=== PATIENT | female | born 1950 | race Caucasian/White ===

== ENCOUNTER → 2016-08-06 | Outpatient (CLI) | payer OTHER ==
--- NOTE | 2016-08-06 17:06 | REP ---
Left knee series: Five views. History: Left knee contusion. Injury in a fall. Findings: Five views of the left knee demonstrate mild to moderate patellofemoral and lateral compartment osteoarthritis. There is some diffuse osteopenia. No fracture or subluxation is seen. Impression: No fracture noted. Osteoarthritic changes. Signed by Trev Dunaway MD 08/06/2016 06:54 P
== END ==
LOC: M ADAMS 15:14
PROVIDERS: ATTEND Physician Assistant Medical
DX: S80.02XA Contusion of left knee, initial encounter (principal); X58.XXXA Exposure to other specified factors, initial encounter; Y92.89 Other specified places as the place of occurrence of the external cause

== ENCOUNTER → 2016-10-18 | Outpatient (REF) | payer OTHER ==
[2016-11-01 08:20] LABS: O+P EXAM NONE SEEN
== END ==
LOC: M SFHCPLAZ 15:07
PROVIDERS: ATTEND Neuromusculoskeletal Medicine & OMM
DX: B82.9 Intestinal parasitism, unspecified (principal)

== ENCOUNTER → 2016-10-22 | Outpatient (REF) | payer OTHER ==
[2016-10-22 13:21] LABS: BASO # 0.1 K/mm3 (0.0-0.2); BASO % 1.1 % (0.0-1.0); EOS # 0.2 K/mm3 (0.0-0.50); EOS % 2.5 % (0.0-3.0); LARGE UNSTAINED CELL # 0.1 K/mm3 (0.0-0.4); LARGE UNSTAINED CELL % 1.5 % (0.0-4.0); LYMPH # 1.6 K/mm3 (1.5-4.5); LYMPH % 27.5 % (24.0-44.0); MEAN CORPUSCULAR HEMOGLOBIN 31.2 pg (27.0-33.0); MEAN CORPUSCULAR HGB CONC 33.8 g/dl (32.0-36.5); MEAN CORPUSCULAR VOLUME 92.2 fl (80.0-96.0); MONO # 0.4 K/mm3 (0.0-0.8); MONO % 6.6 % (0.0-5.0); NEUTROPHILS # 3.6 K/mm3 (1.8-7.7); NEUTROPHILS % 60.8 % (36.0-66.0); PLATELET COUNT, AUTOMATED 292 k/mm3 (150-450); RED CELL DISTRIBUTION WIDTH 12.7 % (11.5-14.5)
[2016-10-22 14:37] LABS: ALBUMIN 3.8 GM/DL (3.2-5.2); ALBUMIN/GLOBULIN RATIO 1.09 (1.00-1.93); ALKALINE PHOSPHATASE 81 U/L (45-117); ALT/SGPT 20 U/L (12-78); ANION GAP 9 MEQ/L (8-16); AST/SGOT 11 U/L (15-37); BILIRUBIN,TOTAL 0.5 MG/DL (0.2-1.0); BLOOD UREA NITROGEN 11 MG/DL (7-18); CALCIUM LEVEL 9.6 MG/DL (8.8-10.2); CARBON DIOXIDE LEVEL 31 MEQ/L (21-32); CHLORIDE LEVEL 96 MEQ/L (98-107); CHOLESTEROL LEVEL 239 MG/DL (<200); CREATININE FOR GFR 0.82 MG/DL (0.55-1.02); FREE T4 0.92 NG/DL (0.76-1.46); GLOMERULAR FILTRATION RATE > 60.0 (>45); GLUCOSE, FASTING 229 MG/DL (80-110); MAGNESIUM LEVEL 1.9 MG/DL (1.8-2.4); POTASSIUM SERUM 4.7 MEQ/L (3.5-5.1); SODIUM LEVEL 136 MEQ/L (136-145); TOTAL PROTEIN 7.3 GM/DL (6.4-8.2); TRIGLYCERIDES LEVEL 140 MG/DL (<150)
[2016-10-26 00:06] LABS: GAD-65 AUTOANTIBODY <5.0 U/mL (0.0-5.0)
[2016-10-27 10:22] LABS: DOPAMINE PLASMA <30 pg/mL (0-48); EPINEPHRINE PLASMA <15 pg/mL (0-62); NOREPINEPHRINE PLASMA 1077 pg/mL (0-874)
== END ==
LOC: M SFHCPLAZ 11:18
DX: I10 Essential (primary) hypertension (principal); R53.82 Chronic fatigue, unspecified; Z13.1 Encounter for screening for diabetes mellitus; E55.9 Vitamin D deficiency, unspecified; Z79.899 Other long term (current) drug therapy

== ENCOUNTER → 2016-10-26 | Outpatient (CLI) | payer OTHER ==
--- NOTE | 2016-10-27 00:04 | REP ---
Clinical: Abdominal bruit. Technique: Vargas scale and color Doppler evaluation of the kidneys and renal vasculature using curved array transducer along with sonographic evaluation of the aorta. Findings: The right kidney is significantly atrophic and increased in parenchymal echogenicity measuring 4.9 x 3.5 x 2.6 cm including 6.5 mm nonobstructing calculus and extrarenal pelvis. The left kidney demonstrates compensatory hypertrophy and is essentially normal in contour, echogenicity and reniform shape without hydronephrosis, nephrolithiasis, cystic or renal mass lesion. Left kidney measures 12.0 x 5.6 x 7.0 cm. Bladder is incompletely distended and grossly normal by current evaluation with bilateral ureteral jets noted. Bladder currently measuring 7.1 x 9.6 x 4.1 cm (185 ml). The abdominal aorta is normal in caliber and without evidence for aneurysm or periaortic fluid and measures 1.9 cm maximal diameter. Color Doppler evaluation of the renal vasculature demonstrates normal arterial wave patterns, velocities, renal aortic ratios, resistive indices and acceleration time for the left kidney with decreased flow to the right kidney. Right Kidney: Peak arterial velocity: 57.8 cm/sec. Renal aortic ratio: 0.6 . Resistive indices: 0.5 - 0.6 . Acceleration times: 0.01 - 0.03 . Left kidney: Peak arterial velocity: 130.7 cm/sec. Renal aortic ratio: 1.4 . Resistive indices: 0.7 . Acceleration times: 0.04. Impression: 1. Atrophic appearance of the right kidney with renovascular disease suggested as well as compensatory enlargement to the left kidney. 2. Evaluation for renal artery stenosis to the right kidney is limited and if necessary MRA may be considered for further investigation. 3. Normal abdominal aorta without aneurysm. Signed by Chuck Barraza MD 10/26/2016 11:55 P
== END ==
LOC: M RAD 08:46
PROVIDERS: ATTEND Neuromusculoskeletal Medicine & OMM
DX: N26.1 Atrophy of kidney (terminal) (principal); N28.81 Hypertrophy of kidney

== ENCOUNTER → 2016-12-03 | Outpatient (REF) | payer OTHER ==
[2016-12-03 21:02] LABS: ANION GAP 7 MEQ/L (8-16); BLOOD UREA NITROGEN 15 MG/DL (7-18); CALCIUM LEVEL 8.8 MG/DL (8.8-10.2); CARBON DIOXIDE LEVEL 31 MEQ/L (21-32); CHLORIDE LEVEL 100 MEQ/L (98-107); GLOMERULAR FILTRATION RATE > 60.0 (>45); GLUCOSE, FASTING 264 MG/DL (80-110); POTASSIUM SERUM 4.9 MEQ/L (3.5-5.1); SODIUM LEVEL 138 MEQ/L (136-145)
== END ==
LOC: M SFHCPLAZ 14:27
PROVIDERS: ATTEND Emergency Medicine
DX: I10 Essential (primary) hypertension (principal); E11.9 Type 2 diabetes mellitus without complications

== ENCOUNTER → 2016-12-22 | Outpatient (REF) | payer OTHER ==
[2016-12-22 13:43] LABS: ANION GAP 10 MEQ/L (8-16); BLOOD UREA NITROGEN 11 MG/DL (7-18); CALCIUM LEVEL 9.3 MG/DL (8.8-10.2); CARBON DIOXIDE LEVEL 31 MEQ/L (21-32); CHLORIDE LEVEL 98 MEQ/L (98-107); CREATININE FOR GFR 0.84 MG/DL (0.55-1.02); GLOMERULAR FILTRATION RATE > 60.0 (>45); GLUCOSE, FASTING 315 MG/DL (80-110); POTASSIUM SERUM 4.4 MEQ/L (3.5-5.1); SODIUM LEVEL 139 MEQ/L (136-145)
[2016-12-30 00:06] LABS: DOPAMINE 177 ug/24 hr (0-510); DOPAMINE PLASMA <30 pg/mL (0-48); EPINEPHRINE 3 ug/24 hr (0-20); EPINEPHRINE PLASMA <15 pg/mL (0-62); INSULIN ANTIBODY <5.0 uU/mL (.); ISLET CELL ANTIBODIES Negative (Neg:<1:1); NOREPINEPHRINE 54 ug/24 hr (0-135); NOREPINEPHRINE PLASMA 655 pg/mL (0-874); NOREPINEPHRINE TOTAL URINE 18 ug/L (Undefined)
== END ==
LOC: M SFHCPLAZ 09:28
PROVIDERS: ATTEND Neuromusculoskeletal Medicine & OMM
DX: I10 Essential (primary) hypertension (principal); E11.9 Type 2 diabetes mellitus without complications

== ENCOUNTER → 2016-12-28 | Outpatient (REF) | payer OTHER | LOC: M SFHCPLAZ 13:10 | PROVIDERS: ATTEND Emergency Medicine | DX: I10 Essential (primary) hypertension (principal); E11.9 Type 2 diabetes mellitus without complications ==

== ENCOUNTER → 2017-03-02 | Outpatient (REF) | payer OTHER | LOC: M SFHCPLAZ 10:17 | PROVIDERS: ATTEND Neuromusculoskeletal Medicine & OMM | DX: E11.9 Type 2 diabetes mellitus without complications (principal) ==

== ENCOUNTER → 2018-09-21 | Outpatient (REF) | payer OTHER ==
[2018-09-21 20:03] LABS: HEMATOCRIT 42.5 % (36.0-47.0)
[2018-09-21 20:15] LABS: BLOOD UREA NITROGEN 16 MG/DL (7-18); CALCIUM LEVEL 9.4 MG/DL (8.8-10.2); CARBON DIOXIDE LEVEL 29 MEQ/L (21-32); CHLORIDE LEVEL 100 MEQ/L (98-107); CREATININE FOR GFR 0.86 MG/DL (0.55-1.30); GLOMERULAR FILTRATION RATE > 60.0 (>45); GLUCOSE, FASTING 320 MG/DL (70-100); POTASSIUM SERUM 4.9 MEQ/L (3.5-5.1); SODIUM LEVEL 135 MEQ/L (136-145)
[2018-09-21 20:31] LABS: HEMOGLOBIN A1c 11.1 %
[2018-09-21 21:11] LABS: CREATININE, URINE 64.6 MG/DL; MAU/CREAT RATIO 1950.4 MCG/MG (0.0-30.0)
== END ==
LOC: M SFHCPLAZ 15:44 → M SFHCADAM 15:44
PROVIDERS: ATTEND Family Medicine
DX: E11.9 Type 2 diabetes mellitus without complications (principal)

== ENCOUNTER → 2018-10-05 | Outpatient (REF) | payer MEDICARE | LOC: M SFHCPLAZ 15:05 | DX: Z00.00 Encounter for general adult medical examination without abnormal findings (principal); E11.9 Type 2 diabetes mellitus without complications; Z53.8 Procedure and treatment not carried out for other reasons | CPT/HCPCS: 36415; G0463 ==

== ENCOUNTER 2020-07-07 17:25 | Inpatient (IN) | payer MEDICARE ==
[~2020-07-07] VITALS: Ht 167.6 cm; Wt 58.2 kg
[2020-07-07] MEDS ORDERED: METF-818 PO ×2 (17:45→22:41)
[2020-07-07 20:28] LABS: BASO # 0.1 10^3/uL (0.0-0.2); BASO % 0.6 % (0.0-1.0); EOS # 0.1 10^3/uL (0.0-0.5); EOS % 1.5 % (0.0-3.0); HEMATOCRIT 35.9 % (36.0-47.0); HEMOGLOBIN 11.9 g/dl (12.0-15.5); LYMPH # 1.2 10^3/uL (1.5-5.0); LYMPH % 15.4 % (24.0-44.0); MEAN CORPUSCULAR HEMOGLOBIN 30.4 pg (27.0-33.0); MEAN CORPUSCULAR HGB CONC 33.1 g/dl (32.0-36.5); MEAN CORPUSCULAR VOLUME 91.8 fl (80.0-96.0); MONO # 0.6 10^3/uL (0.0-0.8); MONO % 7.1 % (2.0-8.0); NEUTROPHILS % 75.2 % (36.0-66.0); PLATELET COUNT, AUTOMATED 431 10^3/uL (150-450); RED BLOOD COUNT 3.91 10^6/uL (4.00-5.40)
[2020-07-07 20:39] LABS: INR 0.94; PROTHROMBIN TIME 12.8 SECONDS (12.5-14.3)
[2020-07-07 20:40] LABS: PARTIAL THROMBOPLASTIN TIME 32.2 SECONDS (24.2-38.5)
[2020-07-07 21:04] LABS: ALT/SGPT 26 U/L (12-78); BILIRUBIN,DIRECT < 0.1 MG/DL (0.0-0.2); BILIRUBIN,TOTAL 0.3 MG/DL (0.2-1.0); BLOOD UREA NITROGEN 30 MG/DL (7-18); CALCIUM LEVEL 8.3 MG/DL (8.8-10.2); CARBON DIOXIDE LEVEL 27 MEQ/L (21-32); CHLORIDE LEVEL 103 MEQ/L (98-107); CK-MB VALUE MASS 8.5 NG/ML (<3.6); CPK CREATINE PHOSPHOKINASE 242 U/L (26-192); FREE T4 1.08 NG/DL (0.76-1.46); GLOMERULAR FILTRATION RATE 33.9 (>39); GLUCOSE, FASTING 215 MG/DL (70-100); MB/CK RELATIVE INDEX 3.51 (< OR =4); NT-PRO BNP 15688 PG/ML (<125); POTASSIUM SERUM 4.5 MEQ/L (3.5-5.1); SODIUM LEVEL 137 MEQ/L (136-145); TOTAL PROTEIN 5.5 GM/DL (6.4-8.2); TROPONIN I 0.54 NG/ML (< 0.10)
--- NOTE | 2020-07-07 21:45 | REPVR ---
PROCEDURE INFORMATION: Exam: XR Chest Exam date and time: 07/07/2020 7:33 PM Age: 69 years old Clinical indication: Peripheral edema. Evaluate for congestive heart failure. TECHNIQUE: Imaging protocol: XR of the chest Views: 2 views. COMPARISON: No relevant prior studies available. FINDINGS: Lungs: There is pulmonary edema. Bibasilar atelectasis is present. Pleural spaces: There are small right larger than left pleural effusions. No pneumothorax is noted. Heart/Mediastinum: The cardiac silhouette is top normal in size. Bones/joints: There is a mild levoscoliosis of the lower thoracic spine. Degenerative changes are present in the thoracic spine. IMPRESSION: Evidence for congestive heart failure, with pulmonary edema and right larger than left pleural effusions with associated bibasilar atelectasis. Electronically signed by: Josef Nova On 07/07/2020 21:45:50 PM
[2020-07-07] MEDS ORDERED: FUROSEMIDE 40MG/4ML VIAL (J1940) IV ONE (21:50)
--- NOTE | 2020-07-07 22:36 | REPVR ---
PROCEDURE INFORMATION: Exam: US Duplex Lower Extremity Veins, Bilateral Exam date and time: 07/07/2020 10:07 PM Age: 69 years old Clinical indication: Edema, localized; Lower extremity, bilateral; Additional info: Edema R/O dvt TECHNIQUE: Imaging protocol: Real-time duplex ultrasound of the extremities with 2-D mackenzie scale, color Doppler flow and spectral waveform analysis with image documentation. Complete exam focused on the bilateral lower extremity veins. COMPARISON: No relevant prior studies available. FINDINGS: Right deep veins: Unremarkable. The common femoral, femoral, and popliteal veins are patent without thrombus. Normal compressibility, augmentation response and Doppler waveforms. Right superficial veins: Saphenofemoral junction is patent without thrombus. Left deep veins: Unremarkable. The common femoral, femoral, and popliteal veins are patent without thrombus. Normal compressibility, augmentation response and Doppler waveforms. Left superficial veins: Saphenofemoral junction is patent without thrombus. Soft tissues: Unremarkable. IMPRESSION: No deep vein thrombosis in the veins imaged in both lower extremities. Electronically signed by: Josef Nova On 07/07/2020 22:36:31 PM
[2020-07-07] MEDS ORDERED: ALEV220T22 PO (22:41)
[2020-07-07] MEDS ORDERED: HM P99TA PO (22:41)
[2020-07-07] MEDS ORDERED: MAGN250T22 PO (22:41)
[2020-07-07] MEDS ORDERED: SPIR500T PO (22:41)
[2020-07-07] MEDS ORDERED: C 50TAB PO (22:41)
[2020-07-07] MEDS ORDERED: VITATAB73 PO (22:41)
[2020-07-07] MEDS ORDERED: ASPI-161 PO (22:41)
[2020-07-07] MEDS ORDERED: MSM500CA4 PO (22:41)
[2020-07-07] MEDS ORDERED: EQL400CA9 PO (22:41)
[2020-07-07] MEDS ORDERED: GRAP50CA3 PO (22:41)
[2020-07-07] MEDS ORDERED: VITA-172 PO (22:41)
--- NOTE | 2020-07-07 22:42 | REPVR ---
PROCEDURE INFORMATION: Exam: US Duplex Upper Extremity Veins Exam date and time: 07/07/2020 10:07 PM Age: 69 years old Clinical indication: Swelling (edema) of limb; Upper extremity, bilateral; Additional info: Edema R/O dvt TECHNIQUE: Imaging protocol: Real-time Duplex ultrasound of the Upper Extremities with 2-D mackenzie scale, color Doppler flow and spectral waveform analysis with image documentation. Complete exam focused on the bilateral upper extremity veins. COMPARISON: No relevant prior studies available. FINDINGS: Right deep veins: Unremarkable. Axillary and brachial veins are patent throughout without thrombus. Normal Doppler waveforms. Normal compressibility and/or augmentation response. Visualized internal jugular and subclavian veins are patent. Right superficial veins: Unremarkable. Visualized cephalic and basilic veins are patent without thrombus. Left deep veins: Unremarkable. Axillary and brachial veins are patent throughout without thrombus. Normal Doppler waveforms. Normal compressibility and/or augmentation response. Visualized internal jugular and subclavian veins are patent. Left superficial veins: Unremarkable. Visualized cephalic and basilic veins are patent without thrombus. IMPRESSION: No evidence of deep vein thrombosis. Electronically signed by: Josef Nova On 07/07/2020 22:42:31 PM
[2020-07-07 23:14] LABS: RSV AMPLIFICATION NEGATIVE (NEGATIVE)
[2020-07-08] VITALS (7 sets, daily range): BP systolic 137–158; BP diastolic 63–78
--- NOTE | 2020-07-08 01:20 | HPEPDOC ---
General Date of Admission Jul 07, 2020 at 23:06 Date of Service: Jul 08, 2020 Primary Care Physician: Consuelo Madrid DO Attending Physician: MEERA SHIN MD Chief Complaint edema History of Present Illness This is a 69-year-old female presented to [facility] ER w/ the chief complaint of bilateral lower extremity edema 1 week, which has progressively got worse in the past 3-4 days. Patient is a very poor historian and is not compliant with medications. Patient states that she does not follow on a regular basis with her PCP. Of note, on chart reviewing she had a retroperitoneal complete ultrasound done in 2017, which shows atrophic appearance of the right kidney with renal vascular disease as well as compensatory enlargement of the L kidney. She was seen at the [facility] clinic last year by Dr. Sharma who had prescribed her with lisinopril for hypertension after her labs showed elevated urine protein. Patient states that she has not been taking that medication since being prescribed. She was also prescribed at that visit Trulicity once a week inj ection and to follow up in 1 month however, no follow-up was made. She states that she has noticed significant amount of weight gain. Denies fever, chills, nausea, vomiting, diarrhea, abdominal discomfort. 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 Central hypertension. Vitamin D deficiency. Chronic instability of right knee. Gait instability Documented abdominal bruits Tonsillectomy 1963 Appendectomy 1962 Laparoscopy - endometriosis 1998 Arthroscopic knee surgery, right 2015 Past Family history: Son alive- healthy 4 brothers, 1 sisterhealthy Social history: Lives alone. Never smoker. No illicit drug use or alcohol use Allergies. Penicillin rash PHYSICAL EXAM: GENERAL APPEARANCE:Alert and oriented, appears stated age HEENT:Normocephalic, atraumatic, extraocular movements grossly intact, hearing grossly intact to conversation. . LUNGS:Wheezing appreciated in left upper lobe and right lower lobe, crackles appreciated in the lower lung bases bilaterally HEART: Regular rate and rhythm., No murmurs, gallops or rubs, 3+ pitting edema in bilateral lower extremities, displaced PMI, JVD appreciated ABDOMEN:Soft, nontender, no hepatosplenomegaly appreciated, Unable to appreciate bruits. MUSCULOSKELETAL:Muscle strength testing 4/5 bilateral EXTREMITIES:No bruising, cyanosis or clubbing. PERIPHERAL PULSES:2+ pulses in the radial and dorsalis pedis bilaterally SKIN:Color, texture, and turgor normal. No rashes, lesions, or masses. . NEUROLOGIC EXAM:No focal neurological deficits AAOX3 Imaging Chest x-ray 07/07/20 Evidence for congestive heart failure, with pulmonary edema and right larger than left pleural effusions with associated bibasilar atelectasis. Duplex ultrasound of upper extremity and lower extremity, 07/07/20negative for DVTs Assessment and plan: This is a 69-year-old elderly female with past medical history of hypertension, diabetes, renovascular disease, renal artery stenosis (diagnosed 2017 by ultrasound), who presents to [facility] ER w/ the chief complaint of bilateral lower extremity edema 1 week, which has progressively got worse in the past 3-4 days. To be admitted under hospitalist service for further management. Pending echo #Lower extremity edema bilaterally -May be secondary to CHF unspecified -Will Order an echo -Ordered. Chest x-ray from [facility] for tomorrow morning -Mild troponin rise-May be secondary to demand ischemia-we'll trend troponins and EKG - Strict ins and outs and daily weigh ins - Lasix 40 IV 1 in the ER -Scheduled for Lasix 40 IV twice a day -Order for an mg and phos+ daily labs- replete electrolytes as needed - PT/OT -2g Na diet - O2 titrate to >92% #Uncontrolled HTN - Upon chart reviewing- hx of renal a stenosis per U/S in 2017 - Pt not on home HTN regimen due to lack of follow up with PCP - Will start on amlodipine and hydralazine - Pending ECHO, consider adding beta prasanna if this is HFrEF - Will continue to monitor bp closely - will order for renal u/s #Uncontrolled diabetes mellitus type 2 - Patient has been noncompliant, does not follow with PCP regularly - We'll order for urine protein to assess for nephropathy-order for urine creatinine and micro-albumin - Held home metformin - will order a1c level - We'll start on 5 units of Levemir with SSI+Finger stick before meals and daily at bedtime plus hypoglycemia protocol - consistent carb diet #Elevated troponins - may be 2/2 to demand ischemia in the setting of acute CHF exacerbation (unspecifed)- pending ECHO - Will trend trops and EKG q6h #Subclinical hypothyroidism -TSH 7.5, T4 1 0.08 -With patient if again. Past medical history and noncompliance and likely CHF picture, I will start her on 25 minute per day of levothyroxine as long-standing untreated subclinical hypothyroidism can lead to CHF -Patient will need to follow up with primary care physician outpatient for optimal management #ELVIA - Avoid nephrotoxic drugs -Continue with Diuresis #Anemia - will order iron studies, Vit b12 folate #renal artery stenosis - could be a cause of HTN - renal u/s ordered #hx of gait instability- am team further neuro exam to r/o stroke as pt has uncontrolled htn and noncompliant with meds #Hx of documented abd bruits DVT ppx: heparin GI ppx: none Fluids: none. 2L fluid restriction Diet: 2g Na and consistent carb Fall precautions CODE STATUS: Full Home Medications Scheduled Ascorbic Acid (Vitamin C) 500 Mg Tablet, 500 MG PO DAILY, (Reported) Blue-Green Algae (Spirulina) 500 Mg Tablet, 500 MG PO DAILY, (Reported) Cholecalciferol (Vitamin D3) (Vitamin D3) 10 Mcg Capsule, 10 MCG PO DAILY, (Reported) Cyanocobalamin (Vitamin B-12) (Vitamin B-12) 500 Mcg Tablet, 500 MCG PO DAILY, (Reported) Grape Seed Extract (Grape Seed Extract) 50 Mg Capsule, 50 MG PO DAILY, (Reported) Magnesium (Magnesium) 250 Mg Tablet, 250 MG PO QHS, (Reported) Metformin HCl (Metformin ER Gastric) 1,000 Mg [id number], 1,000 MG PO DAILY, (Reported) Methylsulfonylmethane (Msm) 500 Mg Capsule, 500 MG PO QHS, (Reported) Potassium Gluconate (Potassium) 99 Mg Tablet, 595 MG PO QHS, (Reported) Vitamin B Complex (Vitamin B Complex) 1 Each Tablet, 1 TAB PO DAILY, (Reported) Scheduled PRN Aspirin (Aspirin EC) 81 Mg Tablet.dr, 81 MG PO BID PRN for PAIN, (Reported) Naproxen Sodium (Aleve) 220 Mg Tablet, 220 MG PO BID PRN for PAIN, (Reported) Allergies Coded Allergies: Penicillins (Verified Allergy, Mild, rash, 07/07/20) A-FIB/CHADSVASC A-FIB History Current/History of A-Fib/PAF?: No Current PO Anticoag Therapy: No Vital Signs Vital Signs Date Time Temp Pulse Resp B/P (MAP) Pulse Ox O2 Delivery O2 Flow Rate FiO2 07/08/20 00:14 97.6 80 18 161/82 (108) 96 Room Air Laboratory Data Labs 24H Laboratory Tests 2 07/07/20 19:51: Immature Granulocyte % (Auto) 0.2, Neutrophils (%) (Auto) 75.2H, Lymphocytes (%) (Auto) 15.4L, Monocytes (%) (Auto) 7.1, Eosinophils (%) (Auto) 1.5, Basophils (%) (Auto) 0.6, Neutrophils # (Auto) 6.0, Lymphocytes # (Auto) 1.2L, Monocytes # (Auto) 0.6, Eosinophils # (Auto) 0.1, Basophils # (Auto) 0.1, Nucleated Red Blood Cells % (auto) 0.0, Prothrombin Time 12.8, Prothromb Time International Ratio 0.94, Activated Partial Thromboplast Time 32.2, Anion Gap 7L, Glomerular Filtration Rate 33.9L, Calcium Level 8.3L, Total Bilirubin 0.3, Direct Bilirubin < 0.1, Aspartate Amino Transf (AST/SGOT) 22, Alanine Aminotransferase (ALT/SGPT) 26, Alkaline Phosphatase 265H, Total Creatine Kinase 242H, Creatine Kinase MB 8.5H, Creatine Kinase MB Relative Index 3.51, Troponin I 0.54H, ZO-Gow-Z-Type Natriuretic Peptide 73735H, Total Protein 5.5L, Albumin 2.0L, Albumin/Globulin Ratio 0.6L, Thyroid Stimulating Hormone (TSH) 7.510H, Free Thyroxine 1.08 07/07/20 22:20: Coronavirus (COVID-19)(PCR) NEGATIVE, Influenza Type A (RT-PCR) NEGATIVE, Influenza Type B (RT-PCR) NEGATIVE, Respiratory Syncytial Virus (PCR) NEGATIVE CBC/BMP Laboratory Tests 07/07/20 19:51 Plan / VTE VTE Prophylaxis Ordered?: Yes GME ATTESTATION GME ATTESTATION My faculty preceptor for this patient encounter was physically present during the encounter and was fully available. All aspects of the patient interview, examination, medical decision making process, and medical care plan development were reviewed and approved by the faculty preceptor. The faculty preceptor is aware and concurs with the plan as stated in the body of this note and will attest to such by his/her cosignature. ATTENDING NOTE TIME OF SERVICE 1145PM Ms. Woodruff is a 69 yr old w a hx of IDDM, HTN, renovascular CKD3 , and frequent falls who presented w c/o BUE and BLE swelling; she will be admitted for management of anasarca possibly 2/2 acute CHF, HTN Urgency, ELVIA and elevated troponin. Rest per 's H&P Eugenia aDn DO Jul 08, 2020 01:19 MEERA SHIN MD Jul 08, 2020 06:26
[2020-07-08] MEDS: ASPIRIN 81MG ENTERIC TABLET PO PRN ×2 (02:37→23:43)
[2020-07-08] MEDS ORDERED: GLUCOSE 4GM CHEW TABLET PO PRN (02:45)
[2020-07-08] MEDS ORDERED: DEXTROSE 50% 50 ML SYRINGE IV PRN (02:45)
[2020-07-08] MEDS ORDERED: GLUCAGON INJ 1MG VIAL SC PRN (02:45)
[2020-07-08 03:22] LABS: MAGNESIUM LEVEL 2.2 MG/DL (1.8-2.4); TROPONIN I 0.51 NG/ML (< 0.10)
--- NOTE | 2020-07-08 05:18 | ECGEPIP ---
[facility] - ED Test Date: 2020-07-07 Pat Name: HUI OHARA Department: Room: - Gender: Female Trip Follower: JULIUS : 1950 Requested By: ALISON Moreno Order Number: [id number] Reading MD: Walter Glez Measurements Intervals [place] Rate: 91 P: 71 CO: 152 QRS: 95 QRSD: 138 T: 5 QT: 400 QTc: 492 Interpretive Statements Normal sinus rhythm Right bundle branch block NO PRIORS FOR COMPARISON Electronically Signed on 07-08-2020 5:18:40 EDT by Walter Glez
[2020-07-08] MEDS: LEVEMIR (INSULIN DETEMIR) 1 UNITS/0.01ML SC SCH ×2 (05:23→21:38)
[2020-07-08] MEDS: HEPARIN SOD (PORCINE) 5000UNITS/ML 1ML VIAL/SYRINGE SC SCH ×3 (05:25→21:37)
[2020-07-08] MEDS: LEVOTHYROXINE 25MCG TABLET (0.025MG) PO SCH (05:25)
[2020-07-08] MEDS: **hydrALAZINE** 10 MG TAB PO SCH ×4 (06:49→23:41)
[2020-07-08] MEDS: HumaLOG INSULIN (NovoLOG) PER UNIT SC SCH ×4 (07:30→21:38)
[2020-07-08 07:50] LABS: TROPONIN I 0.6 NG/ML (< 0.10)
[2020-07-08 07:53] LABS: FERRITIN 100 NG/ML (8-252); IRON (FE) 43 UG/DL (50-170); PERCENT SATURATION 18.4 % (13.2-45.0); PHOSPHORUS LEVEL 4.3 MG/DL (2.5-4.9); TOTAL IRON BINDING CAPACITY 234 UG/DL (250-450); URIC ACID 7.5 MG/DL (2.6-6.0)
--- NOTE | 2020-07-08 07:57 | REP ---
INDICATION: chf. COMPARISON: 07/07/2020. TECHNIQUE: Portable AP chest with the patient semi upright. FINDINGS: There are bilateral pleural effusions, unchanged. The right pleural effusion is again larger. There are bilateral parahilar infiltrates, unchanged. Cardiac margins are obscured and cardiac size cannot be determined. IMPRESSION: No significant interval change. <Electronically signed by Stephane Valentino > 07/08/20 0753
[2020-07-08] MEDS ORDERED: FLUBLOK(EGG FREE)(QUAD)INFLUENZA VACC 0.5ML SYRINGE 18YRS & OLDER IM ONE (09:00)
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
[2020-07-08 10:21] LABS: FOLATE 15.8 NG/ML (>5.4); PTH INTACT 145.4 PG/ML (18.5-88.0); VITAMIN B12 LEVEL > 2000 PG/ML (247-911)
[2020-07-08] MEDS: FUROSEMIDE 40MG/4ML VIAL (J1940) IV SCH ×2 (10:28→21:37)
[2020-07-08] MEDS: amLODIPine 5 MG TAB PO SCH (10:31)
[2020-07-08] MEDS: CYANOCOBALAMIN 500 MCG TAB PO SCH (10:32)
[2020-07-08] MEDS: ASCORBIC ACID 500 MG TAB PO SCH (10:32)
[2020-07-08 13:23] LABS: CALCIUM LEVEL 8.1 MG/DL (8.8-10.2); CREATININE FOR GFR 1.69 MG/DL (0.55-1.30); GLOMERULAR FILTRATION RATE 31.8 (>39); POTASSIUM SERUM 4.1 MEQ/L (3.5-5.1)
--- NOTE | 2020-07-08 15:40 | IPNPDOC ---
Subjective Date Seen The patient was seen on 07/08/20. Subjective Chief Complaint/HPI Mrs. Sheikh is a 69 year old female with DM, hypertension, and renal artery stenosis who presents with bilateral lower extremity edema and found to have hypertensive urgency, acute kidney injury, CHF, and troponin increase. This morning, denies any chest pain or dyspnea. she complains of difficulty with ambulation. She has had poor gait for more than a year, but a few days ago, had difficulty ambulating. Physical therapy evaluating today. Placing OT and ARU screen as well. Later in the afternoon, I reached out to her about MRI of the LS spine and MRI. Back in 2019, her PCP recommended MRI of LS spine for sciatica and poor balance. Patient declined the MRI of LS spine at that time. Patient reports that her sciatica pain has greatly improved and has not bothered her. We will hold off on MRI of LS spine. Discussed MRI of the brain to look for stroke as a cause for poor balance and weakness. She wanted more time to think about MRI of the brain. Objective Physical Examination General Exam: Positive: Alert, Cooperative Eye Exam: Positive: EOMI; Negative: Sclera icteric Neck Exam: Positive: Supple Chest Exam: Positive: Diminished Heart Exam: Positive: Rate Normal, Regular Rhythm Abdomen Exam: Positive: Normal bowel sounds, Soft; Negative: Tenderness Extremity Exam: Positive: Edema (bilateral pitting edema) Neuro Exam: Positive: Cranial Nerves 3-12 NL Psych Exam: Positive: Mental status NL, Anxiety Assessment /Plan Assessment Mrs. Sheikh is a 69 year old female with DM, hypertension, and renal artery stenosis who presents with bilateral lower extremity edema and found to have hypertensive urgency, acute kidney injury, CHF, and troponin increase. Her systolic blood pressure has improved to 130s to 140s. Continue with amlodipine and hydralazine q6h. When renal function improve, switch from hydralazine to lisinopril for right renal artery stenosis. Otherwise, troponin increase may be secondary to hypertensive urgency. The persistent elevation would be secondary to her ELVIA. Otherwise, receiving diuresis for CHF which may help with blood pressure as well. Plan/VTE VTE Prophylaxis Ordered?: Yes Plan 1. Acute renal failure -Secondary to hypertensive urgency -Supportive care and blood pressure control -Lisinopril held 2. Right renal artery stenosis -Seen on retroperitoneal US on 10/26/2016 -Recommended MRA, but was not obtained. May need to wait for renal improvement before considering MRA for concerns of nephrogenic systemic fibrosis -When renal function improves, restart lisinopril 3. Hypertensive urgency -End organ damage demonstrated by ELVIA and troponin rise -Blood pressure controlled with Amlodipine and hydralazine. Consider switching hydralazine to lisinopril when renal function improves 4. Elevated troponin -Trending troponin -Pending echocardiogram results 5. CHF -Pending [place] [address] -On diuresis with furosemide 6. Gait instability -Patient has history of gait instability. PCP had ordered MRI of LS spine, but patient refused -Physical therapy ordered, Recommendations appreciated. Will order for OT and ARU as well -Offered MRI of brain, patient wants to think about it more 7. Diabetes mellitus -Hold metformin -Sliding scale insulin while inpatient -Carbohydrate consistent diet 8. Hypothyroidism -Continue levothyroxine 9. DVT ppx -Heparin subQ due to ELVIA Disposition: Pending patient response to MRI and recommendations from PT/OT/ARU VS, I&O, 24H, Ricci Vital Signs/I&O Vital Signs Date Time Temp Pulse Resp B/P (MAP) Pulse Ox O2 Delivery O2 Flow Rate FiO2 07/08/20 12:08 141/65 07/08/20 10:31 81 07/08/20 09:07 2.0 92 07/08/20 09:02 92.0 20 92 Nasal Cannula I&O- Last 24 Hours up to 6 AM 07/08/20 06:00 Intake Total 480 ml Output Total 1400 ml Balance -920 ml Laboratory Data 24H LABS Laboratory Tests 2 07/07/20 19:51: Immature Granulocyte % (Auto) 0.2, Neutrophils (%) (Auto) 75.2H, Lymphocytes (%) (Auto) 15.4L, Monocytes (%) (Auto) 7.1, Eosinophils (%) (Auto) 1.5, Basophils (%) (Auto) 0.6, Neutrophils # (Auto) 6.0, Lymphocytes # (Auto) 1.2L, Monocytes # (Auto) 0.6, Eosinophils # (Auto) 0.1, Basophils # (Auto) 0.1, Nucleated Red Bloo d Cells % (auto) 0.0, Prothrombin Time 12.8, Prothromb Time International Ratio 0.94, Activated Partial Thromboplast Time 32.2, Anion Gap 7L, Glomerular Filtration Rate 33.9L, Calcium Level 8.3L, Total Bilirubin 0.3, Direct Bilirubin < 0.1, Aspartate Amino Transf (AST/SGOT) 22, Alanine Aminotransferase (ALT/SGPT) 26, Alkaline Phosphatase 265H, Total Creatine Kinase 242H, Creatine Kinase MB 8.5H, Creatine Kinase MB Relative Index 3.51, Troponin I 0.54H, PW-Dvd-F-Type Natriuretic Peptide 19619T, Total Protein 5.5L, Albumin 2.0L, Albumin/Globulin Ratio 0.6L, Thyroid Stimulating Hormone (TSH) 7.510H, Free Thyroxine 1.08 07/07/20 22:20: Coronavirus (COVID-19)(PCR) NEGATIVE, Influenza Type A (RT-PCR) NEGATIVE, Influenza Type B (RT-PCR) NEGATIVE, Respiratory Syncytial Virus (PCR) NEGATIVE 07/08/20 02:29: Troponin I 0.51H, Phosphorus Level 4.0, Magnesium Level 2.2 07/08/20 07:00: Troponin I 0.60H, PU-Uzd-F-Type Natriuretic Peptide 15164L, Phosphorus Level 4.3, Uric Acid 7.5H, Iron Level 43L, Total Iron Binding Capacity 234L, Dixon sferrin % Saturation 18.4, Ferritin 100, Vitamin B12 Level > 2000H, Folate 15.8, Parathyroid Hormone (Intact) 145.4H 07/08/20 11:47: Bedside Glucose (Misc Panel) 337H CBC/BMP Laboratory Tests 07/07/20 19:51 [facility] 23, 2021 12:50
--- NOTE | 2020-07-08 20:41 | ECGEPIP ---
[facility] Test Date: 2020-07-08 Pat Name: HUI OHARA Department: Room: [place] [address] Gender: Female Signal Fitter: nicol : 1950 Requested By: Eugenia Dan Order Number: [id number] Reading MD: Sumit Lopez Measurements Intervals [place] Rate: 81 P: 55 SC: 152 QRS: 79 QRSD: 146 T: -8 QT: 416 QTc: 483 Interpretive Statements Normal sinus rhythm Low QRS complex voltage in the limb leads Right bundle branch block Nonspecific ST-T wave abnormalities No significant change when compared to prior tracing of 07/07/2020 Electronically Signed on 07-08-2020 20:41:47 EDT by Sumit Lopez
[2020-07-09] VITALS (7 sets, daily range): BP systolic 114–174; BP diastolic 62–80
[2020-07-09 04:05] LABS: CREATININE,RANDOM URINE 38.4 MG/DL
[2020-07-09] MEDS: **hydrALAZINE** 10 MG TAB PO SCH ×4 (05:37→23:10)
[2020-07-09] MEDS: HEPARIN SOD (PORCINE) 5000UNITS/ML 1ML VIAL/SYRINGE SC SCH ×3 (05:37→21:33)
[2020-07-09 05:44] LABS: MEAN CORPUSCULAR HEMOGLOBIN 30.4 pg (27.0-33.0); MEAN CORPUSCULAR HGB CONC 32.4 g/dl (32.0-36.5); MEAN CORPUSCULAR VOLUME 93.9 fl (80.0-96.0); PLATELET COUNT, AUTOMATED 371 10^3/uL (150-450); RED BLOOD COUNT 3.09 10^6/uL (4.00-5.40); WHITE BLOOD COUNT 8.7 10^3/uL (4.0-10.0)
[2020-07-09 05:50] LABS: HEMOGLOBIN A1c 10.5 %
[2020-07-09 05:51] LABS: HEMOGLOBIN 9.4 g/dl (12.0-15.5)
[2020-07-09] MEDS: LEVOTHYROXINE 25MCG TABLET (0.025MG) PO SCH (05:53)
[2020-07-09 06:00] LABS: BLOOD UREA NITROGEN 40 MG/DL (7-18); CALCIUM LEVEL 7.2 MG/DL (8.8-10.2); CARBON DIOXIDE LEVEL 27 MEQ/L (21-32); CHLORIDE LEVEL 106 MEQ/L (98-107); CREATININE FOR GFR 1.84 MG/DL (0.55-1.30); GLOMERULAR FILTRATION RATE 28.9 (>39); GLUCOSE, FASTING 218 MG/DL (70-100); POTASSIUM SERUM 4.5 MEQ/L (3.5-5.1); SODIUM LEVEL 140 MEQ/L (136-145)
[2020-07-09] MEDS: ASCORBIC ACID 500 MG TAB PO SCH (08:09)
[2020-07-09] MEDS: CYANOCOBALAMIN 500 MCG TAB PO SCH (08:09)
[2020-07-09] MEDS: HumaLOG INSULIN (NovoLOG) PER UNIT SC SCH ×4 (08:11→21:00)
[2020-07-09] MEDS: amLODIPine 5 MG TAB PO SCH (08:16)
--- NOTE | 2020-07-09 09:21 | ECHO ---
DATE OF PROCEDURE: 07/08/2020 Age: 69 Gender: Female Height: 168 cm Weight: 69 kg REFERRING PHYSICIAN: Dr. Dan. INDICATION: Edema. MEASUREMENTS: IVS 1.0 cm LV 4.5 cm LVPW 1.3 cm LA 4.3 cm Aorta 2.8 cm IVC 1.9 cm Mitral E wave velocity 103 Mitral A wave 109 E prime septal 6.6 E prime lateral 5.7 FINDINGS: This study is of good technical quality. There are relatively fair or poor parasternal and apical views, but subcostal views are excellent. Left ventricle is of normal size. There is septal wall motion abnormality likely related to underlying left bundle branch block. Remaining segments appear to have preserved contractility. I estimate overall EF approximately 50% to 55%. Right ventricle does not appear grossly enlarged and is normally contractile. Both atria appear enlarged. The aortic valve is sclerotic, but has three cusps and preserved mobility. Mitral and tricuspid valves appear normal. Pulmonic valve was not well seen. There is trivial pericardial effusion noted. There is a large left pleural effusion. Inferior vena cava is in the upper limits of normal size and has no appreciable collapse with inspiration indicative of high central venous pressure. Aortic root appears normal. Aortic arch and abdominal aorta were not well seen. Doppler interrogation reveals competent aortic valve. There is mild mitral insufficiency and moderate tricuspid insufficiency. Calculated pulmonary artery pressure is at minimum in the mid 50s, which would correspond to moderate pulmonary hypertension. Mitral inflow pattern and tissue Doppler imaging of mitral annulus revealed grade 1 diastolic dysfunction. CONCLUSIONS: 1. Study if of acceptable technical quality. Underlying sinus rhythm with wide QRS complex, likely left bundle branch block (LBBB). 2. Normal LV size with mild left ventricular hypertrophy (LVH), septal wall motion abnormality related to LBBB and overall left ventricular ejection fraction (LVEF) estimated at 50% to 55%. Grade 1 diastolic dysfunction. 3. Aortic sclerosis. 4. Moderate tricuspid insufficiency. 5. High central venous pressure and at least moderate pulmonary hypertension. 6. Small noncompressive pericardial effusion. 7. Large left pleural effusion. MTDD
[2020-07-09] MEDS: guaiFENesin ER 600 MG TAB PO SCH ×2 (09:29→21:18)
--- NOTE | 2020-07-09 09:46 | REP ---
INDICATION: dyspnea. COMPARISON: 07/09/2019. TECHNIQUE: SINGLE PORTABLE AP VIEW OF THE CHEST WAS PERFORMED. FINDINGS: Bilateral infiltrates and effusions have not significantly changed. The cardiomediastinal silhouette is unchanged. IMPRESSION: Stable exam. <Electronically signed by Stephane Vargas > 07/09/20 [id number]
--- NOTE | 2020-07-09 11:29 | REPVR ---
PROCEDURE INFORMATION: Exam: MR Head Without Contrast Exam date and time: 07/09/2020 11:11 AM Age: 69 years old Clinical indication: Weakness, extremity; Left; Patient HX: Leg weakness, poor balance TECHNIQUE: Imaging protocol: MR of the head without contrast. COMPARISON: No relevant prior studies available. FINDINGS: Brain: No evidence of restricted diffusion to suggest an acute infarct. No mass, midline shift, or mass effect. No evidence of hemorrhage. Mild small vessel ischemic changes. Ventricles and sulci are enlarged presenting moderate volume loss. Cerebral ventricles: Normal. No ventriculomegaly. Bones/joints: Heterogeneous bone marrow signal with multiple lytic lesions in the skull and within the clivus concerning for metastatic disease or multiple myeloma. Clinical correlation and further workup is recommended. Paranasal sinuses: Mild mucosal thickening of the ethmoidal air cells. Mastoid air cells: Small fluid in bilateral mastoid air cells, left greater than right. Orbital cavity: Unremarkable. Soft tissues: Unremarkable. IMPRESSION: Limited study secondary to motion artifact. Given limitation of motion artifact no acute intracranial abnormality is seen., however, if clinically concerned for hemorrhage further evaluation with CT scan is recommended. No evidence of acute infarct, mass, midline shift, or mass effect. Mild small vessel ischemic changes and moderate volume loss. Small fluid in bilateral mastoid air cells. Heterogeneous bone marrow signal with multiple lytic lesions in the skull and within the clivus concerning for metastatic disease or multiple myeloma. Clinical correlation and further workup is recommended. Electronically signed by: Maude Bosch On 07/09/2020 11:29:34 AM
[2020-07-09 12:11] LABS: MEAN CORPUSCULAR HEMOGLOBIN 30.5 pg (27.0-33.0); MEAN CORPUSCULAR HGB CONC 32.3 g/dl (32.0-36.5); MEAN CORPUSCULAR VOLUME 94.5 fl (80.0-96.0); PLATELET COUNT, AUTOMATED 372 10^3/uL (150-450); RED BLOOD COUNT 3.28 10^6/uL (4.00-5.40); WHITE BLOOD COUNT 10.7 10^3/uL (4.0-10.0)
[2020-07-09 13:07] LABS: TOTAL PROTEIN 4.4 GM/DL (6.4-8.2)
[2020-07-09] MEDS ORDERED: ONDANSETRON 4MG/2ML VIAL IV SCH (17:00)
--- NOTE | 2020-07-09 17:23 | REPVR ---
PROCEDURE INFORMATION: Exam: MR Lumbar Spine Without Contrast. Exam date and time: 07/09/2020 4:57 PM Age: 69 years old Clinical indication: Patient HX: Low back pain, mets in brain; Additional info: Leg weakness, metastatic lytic bone lesions seen on mribrain TECHNIQUE: Imaging protocol: Multiplanar magnetic resonance images of the lumbar spine without contrast. COMPARISON: No relevant prior studies available. FINDINGS: Vertebrae: The lumbar vertebral bodies are normal in height, without abnormal subluxation. There is diffuse heterogeneous signal intensity of the visualized bone marrow of the lumbar, lower thoracic, and upper sacral spine. This is concerning for metastatic disease. Myeloma is within the differential. Spinal cord: The distal end of the conus medullaris ends at L1-L2, normal in position. Multilevel findings: Degenerative disc disease is noted at multiple lumbar and lower thoracic levels, with disc bulge/osteophyte complexes. L1-L2: Minimal disc bulging, without significant spinal canal stenosis. No significant neural foraminal narrowing bilaterally. L2-L3: Bilateral facet arthropathy. Minimal disc bulging, without significant spinal canal stenosis. No significant neural foraminal narrowing bilaterally. L3-L4: Bilateral facet arthropathy with hypertrophy of the ligamentum flavum. Mild disc bulging, without significant spinal canal stenosis. Mild left neural foraminal narrowing. There is mild bulging into the right neural foramen, without significant narrowing. L4-L5: Bilateral facet arthropathy with hypertrophy of the ligamentum flavum. Minimal disc bulging, without significant spinal canal stenosis or neural foraminal narrowing. L5-S1: Bilateral facet arthropathy. No significant spinal canal stenosis or neural foraminal narrowing. Soft tissues: There is swelling of the soft tissues posteriorly. There is a suggestion of posterior paraspinal muscle is swelling, although evaluation of the musculature is significantly limited. Other findings: This study is technically suboptimal. IMPRESSION: 1. There is diffuse heterogeneous signal intensity of the visualized bone marrow of the lumbar, lower thoracic, and upper sacral spine. This is concerning for metastatic disease. Myeloma is within the differential. 2. Degenerative changes are noted at multiple lumbar and lower thoracic levels, as described above. 3. No significant spinal canal stenosis at any lumbar level. 4. Mild left neural foraminal narrowing at L3-L4. 5. Additional findings described above. This study is technically suboptimal. 6. Follow-up postcontrast MRI lumbar spine is recommended, as clinically indicated. Electronically signed by: Jacinto Piper On 07/09/2020 17:23:11 PM
--- NOTE | 2020-07-09 17:32 | CR.PDOC ---
General Date of Consultation: Jul 09, 2020 Referring Provider: BETINA OSMANCP Consultation REASON FOR CONSULTATION/CHIEF COMPLAINT: [This is a 69-year-old woman who has been referred for an evaluation of multiple lesions noted in her skull bones as a part of her investigations which have been performed since she has been admitted to the hospital with a multiplicity of medical problems. She stated to me that her main complaint was swelling of her legs. She has been having weakness in the lower limbs and because of the overall clinical findings and picture she had just returned to her room after having undergone an MRI of the spine as well. Review of the patient's reasons for admission includes congestive heart failure hypertension elevated troponins and a multiplicity of other medical issues which are well recorded in the attending]. HISTORY OF PRESENT ILLNESS: [In terms of the oncologic issues the MRI of the head has suggested as a part of the differential problems such as myeloma for which protein studies have been ordered but at the moment are not available. It is clear on examining the patient and by talking to her that she has had a breast mass for the past 5 years on the right side, she had decided that she would not want anything be done about it . an examination later showed that t he right breast has shrunken in a cicatrized manner and was nearly flat in comparison to the left breast. She had had no bleeding no lumps that she otherwise complained of. Is is in this context that I was asked to see the patient. The patient was seen in the room and the company of her son. Apparently she had made up her mind not to undertake treatments and investigations in the context of her breast]. She is extremely pleasant but otherwise appeared to be somewhat firm in her commitment to being managed in the way she wished. Reports in the records also indicate a similar issue of compliance on medical matters, ALLERGIES: Please see below. HOME MEDICATIONS: Please see below. PAST MEDICAL HISTORY: 1. [She has many past medical issues including renovascular hypertension diabetes mellitus heart failure vitamin D deficiency abnormal gait]. 2. . PAST SURGICAL HISTORY: 1. [She had a history of tonsillectomy appendicectomy] 2. FAMILY HISTORY: 4 brothers one son who was in the room with her Father: Mother: Siblings: Children: Hereditary Diseases: Unexpected deaths due to medical reasons: SOCIAL HISTORY: Marital status and/or living arrangements: Children: Employment: Tobacco use: ETOH: Illicit drug use: IV drug use: Other relevant social factors: REVIEW OF SYSTEMS: CONSTITUTIONAL: [Alert and awake cooperative]. HEENT: [No head and neck complaints]. CARDIOVASCULAR: [Swelling of the legs]. RESPIRATORY: [Some shortness of breath but appeared to be comfortable at rest]. GENITOURINARY: No complaints voiced. MUSCULOSKELETAL: [Has weakness in the legs]. GASTROINTESTINAL: [Denied any problems with bowel control]. SKIN: [No skin issues]. NEUROLOGICAL: [Has a difficult time with walking although she was in bed when seen]. PSYCHIATRIC: [No]. ENDOCRINE: [No complaints]. HEMATOLOGIC/LYMPHATIC: [As above in the beginning of the note but she has self was not available if any problem]. ALLERGIC/IMMUNOLOGIC: . PHYSICAL EXAMINATION: A cooperative pleasant woman laying in bed had just arrived from the MRI of the spine in no acute distress at the moment examination but tired and wanted to progress eat she was examined in the presence of the nose was also assigned to her, HEENT pupils are equal and reactive mouth normal neck supple chest clear examination of the breast on the right side revealed that the breasts had retracted almost to the chest wall is hyperpigmented nonulcerated and fibrotic and hard. This is a classical appearance of so-called sick cicatrized breast cancer. The examination of the abdomen was deferred' examination the lower limb is revealed edema and focality of findings could not be ascertained at this time. The right leg appeared to be slightly weaker than the left with his socks on one could not demonstrate a Babinski. The skin examination revealed pale skin otherwise unremarkable VITAL SIGNS: Please see below. While she is in the hospital further examination from the oncologic point of view would be done. ASSESSMENT: * It is quite evident that she has breast cancer which is metastatic to the bone although many other causes such as myeloma are a part of the differentials * Usually such a breast cancer as she has is estrogen and progesterone receptor positive and consequently if she were to agree to a biopsy which I emphasized to her in the presence of her nurse can be quite conveniently treated with anti-estrogen therapy' * On the other hand the presence of the possibility of a mass of pressure on the spinal cord can only be treated effectively by radiation along with supportive medications, we will await the report of the MRI of the spine * Overall unless she agrees for some easy investigations that getting an FNA of a [place] biopsy of the breast for which breast says he should be consulted and will be difficult to undertake oncologic measures short of palliation * She was accepting of all of these in a very calm demeanor and we will await her getting well and to see the results of the spinal MRI * Will follow with you thank you Vital Signs/I&O Vital Signs Date Time Temp Pulse Resp B/P (MAP) Pulse Ox O2 Delivery O2 Flow Rate FiO2 07/09/20 12:24 114/64 07/09/20 12:00 96.7 75 16 95 Nasal Cannula 2.0 07/08/20 12:54 92 I&O- Last 24 Hours up to 6 AM 07/09/20 06:00 Intake Total 1266 ml Output Total 800 ml Balance 466 ml Laboratory Data Labs 24H Laboratory Tests 2 07/08/20 17:30: Bedside Glucose (Misc Panel) 203H 07/08/20 18:46: Troponin I 0.60H 07/08/20 21:20: Bedside Glucose (Misc Panel) 268H 07/09/20 05:01: Nucleated Red Blood Cells % (auto) 0.0, Anion Gap 7L, Glomerular Filtration Rate 28.9L, Estimated Mean Plasma Glucose 255H, Hemoglobin A1c 10.5, Calcium Level 7.2L, Total Protein (PEP) 4.4L 07/09/20 11:32: Bedside Glucose (Misc Panel) 203H 07/09/20 11:50: Reticulocyte # (auto) 90.5H, Nucleated Red Blood Cells % (auto) 0.0, Percent Reticulocyte Count 2.8H, Reticulocyte Hemoglobin Equivalent 33.8 CBC/BMP Laboratory Tests 07/09/20 05:01 07/09/20 11:50 Allergies Coded Allergies: Penicillins (Verified Allergy, Mild, rash, 07/07/20) Home Medications Scheduled Ascorbic Acid (Vitamin C) 500 Mg Tablet, 500 MG PO DAILY, (Reported) Blue-Green Algae (Spirulina) 500 Mg Tablet, 500 MG PO DAILY, (Reported) Cholecalciferol (Vitamin D3) (Vitamin D3) 10 Mcg Capsule, 10 MCG PO DAILY, (Reported) Cyanocobalamin (Vitamin B-12) (Vitamin B-12) 500 Mcg Tablet, 500 MCG PO DAILY, (Reported) Grape Seed Extract (Grape Seed Extract) 50 Mg Capsule, 50 MG PO DAILY, (Reported) Magnesium (Magnesium) 250 Mg Tablet, 250 MG PO QHS, (Reported) Metformin HCl (Metformin ER Gastric) 1,000 Mg [id number], 1,000 MG PO DAILY, (Reported) Methylsulfonylmethane (Msm) 500 Mg Capsule, 500 MG PO QHS, (Reported) Potassium Gluconate (Potassium) 99 Mg Tablet, 595 MG PO QHS, (Reported) Vitamin B Complex (Vitamin B Complex) 1 Each Tablet, 1 TAB PO DAILY, (Reported) Scheduled PRN Aspirin (Aspirin EC) 81 Mg Tablet.dr, 81 MG PO BID PRN for PAIN, (Reported) Naproxen Sodium (Aleve) 220 Mg Tablet, 220 MG PO BID PRN for PAIN, (Reported) BETINA OSMAN Jul 09, 2020 17:32
--- NOTE | 2020-07-09 17:46 | IPNPDOC ---
Subjective Date Seen The patient was seen on 07/09/20. Subjective Chief Complaint/HPI Mrs. Sheikh is a 69 year old female with DM, hypertension, and renal artery stenosis who presents with bilateral lower extremity edema and found to have hypertensive urgency, acute kidney injury, CHF, and troponin increase. This morning, patient denies any chest pain or dyspnea. She was agreeable to MRI brain and it was obtained. No acute stroke, but mild ischemic changes. Skull demonstrated multiple lytic lesions suggestive of metastatic disease or multiple myeloma. Nurse contacted me about dry scaly skin of right breast. 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 Patient tells me she has had it for 5 years and had not caused her any problems. Her had gone through chemo, and she did not want to go through that same process. On examination, it looks like orange peel without the orange discoloration. Discoloration is more purple/red. It is tough dry skin. Patient is interested in seeing what oncology has to offer, but does not want chemotherapy. Oncology was consulted for evaluation and prognosis if treatment is not pursued. Objective Physical Examination General Exam: Positive: Alert, Cooperative Eye Exam: Positive: EOMI; Negative: Sclera icteric Neck Exam: Positive: Supple Chest Exam: Positive: Diminished Heart Exam: Positive: Rate Normal, Regular Rhythm Abdomen Exam: Positive: Normal bowel sounds, Soft; Negative: Tenderness Extremity Exam: Positive: Edema (bilateral pitting edema) Neuro Exam: Positive: Cranial Nerves 3-12 NL Psych Exam: Positive: Mental status NL, Anxiety Assessment /Plan Assessment Mrs. Sheikh is a 69 year old female with DM, hypertension, and renal artery stenosis who presents with bilateral lower extremity edema and found to have hyp ertensive urgency, acute kidney injury, CHF, and troponin increase. Blood pressure is better controlled today. Continue with amlodipine and hydralazine q6h. When renal function improve, switch from hydralazine to lisinopril for right renal artery stenosis. Otherwise, troponin increase may be secondary to hypertensive urgency. The persistent elevation would be secondary to her ELVIA. Otherwise, she had MRI brain for weakness in the legs. Demonstrated lytic lesions concerning for metastasis vs multiple myeloma. She does have a right breast lesion that appears shrunken and stiff. I reached out to oncology, for treatment options and prognosis if she does not want chemotherapy Plan/VTE VTE Prophylaxis Ordered?: Yes Plan 1. Acute renal failure -Secondary to hypertensive urgency -Supportive care and blood pressure control -Lisinopril held -Will hold furosemide today due to worsening renal function 2. Lytic bone lesions lesions -Concerning for malignancy in right breast -Lytic lesions suggestive of metastatic disease vs multiple myeloma -Consulted oncology, recommendations appreciated 3. Right renal artery stenosis -Seen on retroperitoneal US on 10/26/2016 -Recommended MRA, but was not obtained. May need to wait for renal improvement before considering MRA for concerns of nephrogenic systemic fibrosis -When renal function improves, restart lisinopril 4. Hypertensive urgency -End organ damage demonstrated by ELVIA and troponin rise -Blood pressure controlled with Amlodipine and hydralazine. Consider switching hydralazine to lisinopril when renal function improves 5. Elevated troponin -Trending troponin. Now starting to decline -EF 50 to 55% with grade 1 diastolic dysfunction 5. HFpEF -EF 50 to 55% with grade 1 diastolic [place] [id number] -Furosemide on hold due to worsening renal function 6. Gait instability -Patient has history of gait instability. PCP had ordered MRI of LS spine, but patient refused -Patient agreeable to MRI of LS spine and MRI brain -No acute stroke. No significant stenosis. 7. Diabetes mellitus -Hold metformin -Sliding scale insulin while inpatient -Carbohydrate consistent diet 8. Hypothyroidism -Continue levothyroxine 9. DVT ppx -Heparin subQ due to ELVIA Disposition: Pending renal improvement and oncology recommendations. Patient will need rehab. VS, I&O, 24H, [place] Vital Signs/I&O Vital Signs Date Time Temp Pulse Resp B/P (MAP) Pulse Ox O2 Delivery O2 Flow Rate FiO2 07/09/20 12:24 114/64 07/09/20 12:00 96.7 75 16 95 Nasal Cannula 2.0 07/08/20 12:54 92 I&O- Last 24 Hours up to 6 AM 07/09/20 06:00 Intake Total 1266 ml Output Total 800 ml Balance 466 ml Laboratory Data 24H LABS Laboratory Tests 2 07/08/20 17:30: Bedside Glucose (Misc Panel) 203H 07/08/20 18:46: Troponin I 0.60H 07/08/20 21:20: Bedside Glucose (Misc Panel) 268H 07/09/20 05:01: Nucleated Red Blood Cells % (auto) 0.0, Anion Gap 7L, Glomerular Filtration Rate 28.9L, Estimated Mean Plasma Glucose 255H, Hemoglobin A1c 10.5, Calcium Level 7.2L, Total Protein (PEP) 4.4L 07/09/20 11:32: Bedside Glucose (Misc Panel) 203H 07/09/20 11:50: Reticulocyte # (auto) 90.5H, Nucleated Red Blood Cells % (auto) 0.0, Percent Reticulocyte Count 2.8H, Reticulocyte Hemoglobin Equivalent 33.8 CBC/BMP Laboratory Tests 07/09/20 05:01 07/09/20 11:50 AURORA ALMEIDA 24, 2021 16:34
[2020-07-09] MEDS: LEVEMIR (INSULIN DETEMIR) 1 UNITS/0.01ML SC SCH (21:19)
[2020-07-09] MEDS ORDERED: IPRATROPIUM 0.5MG/ALBUTEROL 2.5MG INH SOL UD 3ML (DUONEB) NEB ONE (23:30)
[2020-07-10] VITALS (12 sets, daily range): BP systolic 135–162; BP diastolic 63–79
[2020-07-10] MEDS: LEVOTHYROXINE 25MCG TABLET (0.025MG) PO SCH (05:22)
[2020-07-10] MEDS: **hydrALAZINE** 10 MG TAB PO SCH ×4 (05:22→23:14)
[2020-07-10] MEDS: HEPARIN SOD (PORCINE) 5000UNITS/ML 1ML VIAL/SYRINGE SC SCH ×3 (05:23→21:04)
[2020-07-10 05:57] LABS: HEMATOCRIT 29.2 % (36.0-47.0); HEMOGLOBIN 9.4 g/dl (12.0-15.5); MEAN CORPUSCULAR HEMOGLOBIN 30.3 pg (27.0-33.0); MEAN CORPUSCULAR HGB CONC 32.2 g/dl (32.0-36.5); MEAN CORPUSCULAR VOLUME 94.2 fl (80.0-96.0); PLATELET COUNT, AUTOMATED 378 10^3/uL (150-450); WHITE BLOOD COUNT 8.9 10^3/uL (4.0-10.0)
[2020-07-10 06:16] LABS: CALCIUM LEVEL 7.8 MG/DL (8.8-10.2); CREATININE FOR GFR 1.7 MG/DL (0.55-1.30); GLOMERULAR FILTRATION RATE 31.6 (>39); POTASSIUM SERUM 4.4 MEQ/L (3.5-5.1)
[2020-07-10] MEDS: HumaLOG INSULIN (NovoLOG) PER UNIT SC SCH ×4 (07:28→21:06)
--- NOTE | 2020-07-10 08:36 | REP ---
INDICATION: Left pleural effusion, is it large enough for thoracentesis?. COMPARISON: Portable chest dated 07/09/2020. TECHNIQUE: CT of the chest without IV contrast. FINDINGS: There are large bilateral pleural effusions. There is significant compression atelectasis of the lower lobes bilaterally. Additionally, there is a focal infiltrate centrally in the left upper lobe, parahilar. Additionally, there are scattered small subsegmental infiltrates throughout the upper lobes bilaterally. No mediastinal lymph node enlargement is identified. No axillary lymph node enlargement is identified. The study is insensitive for hilar lymph node enlargement in the absence of IV contrast. The unenhanced thoracic aorta is unremarkable. Cardiac size is upper normal. There is no pericardial effusion. The visualized upper abdominal contents are unremarkable. IMPRESSION: There are large bilateral pleural effusions resulting in significant compression atelectasis of the lower lobes bilaterally. There is a large infiltrate centrally in the left upper lobe. There are scattered small subsegmental infiltrates throughout the upper lobes bilaterally. <Electronically signed by Stephane Valentino > 07/10/20 [id number]
[2020-07-10] MEDS: amLODIPine 5 MG TAB PO SCH (09:06)
[2020-07-10] MEDS: ASCORBIC ACID 500 MG TAB PO SCH (09:06)
[2020-07-10] MEDS: CYANOCOBALAMIN 500 MCG TAB PO SCH (09:06)
[2020-07-10] MEDS: guaiFENesin ER 600 MG TAB PO SCH ×2 (09:06→21:04)
[2020-07-10 10:06] LABS: ALBUMIN 1.8 GM/DL (3.2-5.2); TOTAL PROTEIN 4.7 GM/DL (6.4-8.2)
[2020-07-10] MEDS ORDERED: LIDOCAINE 1% MDV 20ML VIAL As Ordered ONE (10:39)
--- NOTE | 2020-07-10 12:41 | REP ---
INDICATION: S/P THORACENTESIS. COMPARISON: Comparison chest x-ray July 09, 2020. TECHNIQUE: Two views.. FINDINGS: Patient is status post right thoracentesis. The right pleural effusion is improved. There is still some blunting of the right lateral pleural angle. There is moderate left pleural fluid again noted. There is a soft tissue mass like opacity in the perihilar region on the left. There is no evidence of pneumothorax on either side. Mild cardiomegaly is observed. There are pathologic fractures on the right involving rib numbers 7 and 8 and there is a 1 cm radiolucent lesion in the right mid clavicle consistent with skeletal metastatic disease. IMPRESSION: Improved right pleural effusion post thoracentesis. Masslike opacity versus infiltrate left perihilar region. Left pleural effusion.. Radiolucent lesions in the skeleton consistent with metastatic disease. <Electronically signed by Donald Dunaway > 07/10/20 [id number]
[2020-07-10 12:49] LABS: APPEARANCE, BODY FLUID CLEAR (CLEAR); PLEURAL FL COLOR PALE YELLOW (COLORLESS); SOURCE, BODY FLUID PLEURAL
[2020-07-10 12:56] LABS: PH BODY FLUID 7.714 UNITS (NOT ESTABLISHED); SOURCE, BODY FLUID pH PLEURAL
[2020-07-10 13:23] LABS: AMYLASE, BODY FLUID 12 U/L (NOT ESTABLISHED); LDH, BODY FLUID 69 U/L (NOT ESTABLISHED); SOURCE, BODY FLUID ALBUMIN THORACENTESIS; SOURCE, BODY FLUID AMYLASE PLEURAL; SOURCE, BODY FLUID GLUCOSE PLEURAL; SOURCE, BODY FLUID LDH PLEURAL; SOURCE, BODY FLUID TOT PROTEIN THORACENTESIS; TOTAL PROTEIN, BODY FLUID 1.1 G/DL (NOT ESTABLISHED)
--- NOTE | 2020-07-10 15:01 | IPNPDOC ---
Subjective Date Seen The patient was seen on 07/10/20. Subjective Chief Complaint/HPI Mrs. Sheikh is a 69 year old female with DM, hypertension, and renal artery stenosis who presents with bilateral lower extremity edema and found to have hypertensive urgency, acute kidney injury, CHF, and troponin increase. She was then subsequently found to have multiple lytic lesions of the skull, suspected right breast cancer, and bilateral pleural effusions. This morning, she felt short of breath and had trouble taking deep breaths. Ob tained CT chest which demonstrated large bilateral pleural effusions. She was taken down to IR for drainage. Fluid returned transudative. Otherwise, she feels better after drainage of right lung. Left lung still has pleural effusion. Otherwise, I reached out to Dr. Garrett for biopsy of skin lesion suspicious for breast cancer Objective Physical Examination General Exam: Positive: Alert, Cooperative Eye Exam: Positive: EOMI; Negative: Sclera icteric Neck Exam: Positive: Supple Chest Exam: Positive: Diminished Heart Exam: Positive: Rate Normal, Regular Rhythm Abdomen Exam: Positive: Normal bowel sounds, Soft; Negative: Tenderness Extremity Exam: Positive: Edema (bilateral pitting edema) Neuro Exam: Positive: Cranial Nerves 3-12 NL Psych Exam: Positive: Mental status NL, Anxiety Assessment /Plan Assessment Mrs. Sheikh is a 69 year old female with DM, hypertension, and renal artery stenosis who presents with bilateral lower extremity edema and found to have hypertensive urgency, acute kidney injury, CHF, and troponin increase. She was then subsequently found to have multiple lytic lesions of the skull, suspected right breast cancer, and bilateral pleural effusions. Blood pressure is better controlled today. Continue with amlodipine and hydralazine q6h. When renal function improve, switch from hydralazine to lisino pril for right renal artery stenosis. Otherwise, troponin increase may be secondary to hypertensive urgency. The persistent elevation would be secondary to her ELVIA. ELVIA may be secondary to a combination of hypertensive urgency and NSAID use. Will provide supportive care, hold nephrotoxic agents, and provide blood pressure control. Otherwise, she had MRI brain for weakness in the legs. Demonstrated lytic lesions concerning for metastasis vs multiple myeloma. She does have a right breast lesion that appears shrunken and stiff. I reached out to oncology. Patient has cicatrized breast cancer. Recommending biopsy from Breast Surgery. Plan/VTE VTE Prophylaxis Ordered?: Yes Plan 1. Acute renal failure -Secondary to hypertensive urgency and NSAID use -Supportive care and blood pressure control -Lisinopril held -Will hold furosemide due to worsening renal function 2. Lytic bone lesions lesions -Concerning for malignancy in right breast -Lytic lesions suggestive of metastatic disease vs multiple myeloma -Consulted oncology, recommendations appreciated -Breast surgery consulted, pending breast biopsy 3. Right renal artery stenosis -Seen on retroperitoneal US on 10/26/2016 -Recommended MRA, but was not obtained. May need to wait for renal improvement before considering MRA for concerns of nephrogenic systemic fibrosis -When renal function improves, restart lisinopril 4. Hypertensive urgency -End organ damage demonstrated by ELVIA and troponin rise -Blood pressure controlled with Amlodipine and hydralazine. Consider switching hydralazine to lisinopril when renal function improves 5. Elevated troponin -Trending troponin. Now starting to decline -EF 50 to 55% with grade 1 diastolic dysfunction 5. HFpEF -EF 50 to 55% with grade 1 diastolic [place] [address] -Furosemide on hold due to worsening renal function 6. Gait instability -Patient has history of gait instability. PCP had ordered MRI of LS spine, but patient refused -Patient agreeable to MRI of LS spine and MRI brain -No acute stroke. No significant stenosis. 7. Diabetes mellitus -Hold metformin -Sliding scale insulin while inpatient -Carbohydrate consistent diet 8. Hypothyroidism -Continue levothyroxine 9. DVT ppx -Heparin subQ due to ELVIA Disposition: Pending renal improvement, breast biopsy, and improvement in respiratory status VS, I&O, 24H, Fishbone Vital Signs/I&O Vital Signs Date Time Temp Pulse Resp B/P (MAP) Pulse Ox O2 Delivery O2 Flow Rate FiO2 07/10/20 14:00 98.4 74 18 147/67 (93) 90 Nasal Cannula 5.0 07/08/20 12:54 92 I&O- Last 24 Hours up to 6 AM 07/10/20 06:00 Intake Total 660 ml Output Total 820 ml Balance -160 ml Laboratory Data 24H LABS Laboratory Tests 2 07/09/20 18:11: Bedside Glucose (Misc Panel) 211H 07/09/20 21:08: Bedside Glucose (Misc Panel) 217H 07/10/20 05:25: Nucleated Red Blood Cells % (auto) 0.0, Anion Gap 7L, Glomerular Filtration Rate 31.6L, Calcium Level 7.8L, Lactate Dehydrogenase 248H, Total Protein 4.7L, Albumin 1.8L 07/10/20 07:48: D-Dimer, Quantitative 1755.02H 07/10/20 11:20: Body Fluid pH 7.714, Body Fluid pH Source PLEURAL, Body Fluid WBC (Auto) 180H, Body Fluid RBC (Auto) < 2, Body Fluid Mononuclear Cells % Auto 81.1H, Fluid Polymorphonuclear Cell % Auto 18.9H, Body Fluid Glucose Source PLEURAL, Body Fluid Glucose 269, Body Fluid Protein Source THORACENTESIS, Body Fluid Total Protein 1.1, Body Fluid Albumin Source THORACENTESIS, Body Fluid Albumin 0.6, Body Fluid LDH Source PLEURAL, Body Fluid Lactate Dehydrogenase 69, Body Fluid Amylase Source PLEURAL, Body Fluid Amylase 12, Pleural Fluid Source PLEURAL, Pleural Fluid Color PALE YELLOW, Pleural Fluid Appearance CLEAR 07/10/20 12:42: Bedside Glucose (Misc Panel) 190H CBC/BMP Laboratory Tests 07/10/20 05:25 Microbiology Microbiology 07/10/20 Acid Fast Stain, Received Pending 07/10/20 Mycobacterial Culture, Received Pending 07/10/20 Fungal Smear, Received Pending 07/10/20 Fungal Culture, Received Pending 07/10/20 Gram Stain - Final, Resulted 07/10/20 Anaerobic Culture, Resulted Pending 07/10/20 Body Fluid Culture, Received Pending AURORA ALMEIDA 25, 2021 15:01
[2020-07-10 15:07] LABS: ABG BASE EXCESS -0.4 (-2.0-2.0); ABG HCO3 23.5 MEQ/L (22.0-26.0); ABG O2 SATURATION 89.2 % (95.0-99.0); ABG PARTIAL PRESSURE CO2 35.5 mmHg (35.0-45.0); ABG PARTIAL PRESSURE O2 54.8 mmHg (75.0-100.0); ABG TOTAL CO2 24.6 MEQ/L (23.0-31.0); ABG pH (ARTERIAL) 7.438 UNITS (7.350-7.450)
--- NOTE | 2020-07-10 16:04 | REP ---
INDICATION: Hypoxia after thoracentesis COMPARISON: 07/10/2020, 11:53 a.m. TECHNIQUE: PA/Lateral FINDINGS: Left pleural effusion is unchanged. Left lung infiltrates are unchanged. There is increased dense infiltrate in the right lung base compared to the prior exam earlier today. Cardiomediastinal silhouette appears unchanged. IMPRESSION: Dense infiltrate inferiorly on the right following thoracentesis today I suspect represents re-expansion pulmonary edema. <Electronically signed by Stephane Vargas > 07/10/20 1600
[2020-07-10] MEDS ORDERED: FUROSEMIDE 40MG/4ML VIAL (J1940) IV ONE (16:35)
[2020-07-10] MEDS ORDERED: FUROSEMIDE 40MG/4ML VIAL (J1940) As Ordered ONE (16:38)
--- NOTE | 2020-07-10 18:53 | REP ---
INDICATION: Large bilateral pleural effusion, Malignant? Right side. COMPARISON: None. TECHNIQUE: The procedure was performed under the direct supervision of Dr. Vargas. The risks and benefits of the procedure were explained to the patient and informed consent obtained. The procedure was performed by Dr. Coleman under my personal guidance. The right pleural effusion was localized using ultrasound guidance. The skin was prepped and draped in a sterile fashion. 1% lidocaine was used as a local anesthetic. An 8 Serbian multi side hole catheter was inserted using trocar technique. 1900 cc of yellow fluid was withdrawn with a sample sent to the lab for analysis. The patient tolerated the procedure well and there were no immediate complications. After the appropriate amount to monitor convalescence the patient was discharged from the department. FINDINGS: None IMPRESSION: Ultrasound-guided right thoracentesis yielding 1900 cc of yellow fluid. <Electronically signed by Eulogio Alonzo > 07/10/20 1540 <Electronically signed by Stephane Vargas > 07/10/20 [id number]
[2020-07-10] MEDS: LEVEMIR (INSULIN DETEMIR) 1 UNITS/0.01ML SC SCH (21:07)
--- NOTE | 2020-07-10 23:02 | CR.PDOC ---
Breast Surgery Consultation Date of Consultation Date: Jul 10, 2020 (7 pm) History and Physical Reason for consult : Right breast mass HPI: This is a 69-year-old elderly lady w PMHX of hypertension, diabetes, renovascular disease, renal artery stenosis (diagnosed 2017 by ultrasound), who presents to [facility] ER w/ the chief complaint of bilateral lower extremity edema 1 week, which has progressively got worse in the past 3-4 days. Patient is a very poor historian and is not compliant with medications. ED evaluation was concerning for uncontrolled hypertension and congestive heart failure with pulmonary edema, right greater than left pleural effusions with associated bibasilar atelectasis. Troponin is also mildly elevated at 0.54, proBNP 15,688. Both upper extremity and lower extremity duplex ultrasound were negative for DVTs. Patient underwent today 1.9 L thoracentesis complicated by rebound pulmonary edema. Her oxygen demands drastically increases post procedure - she is currently on 15 L high flow, from Room air on admission. Breast surgery was consulted for biopsy of the right breast mass with suspicious skin changes which was noted on the exam. Patient states that she has had right breast mass for 5 years and she did not seek treatment. 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 Patient denies pain at the mass site. She also denies open wounds with drainage. There is no nipple discharge although right nipple is deformed. Right breast skin also has chronic thickening. Patient states that her last mammogram was over 10 years ago. On diagnostic imaging there were lytic bone lesions noted. CT chest also shows right breast mass extending from skin to pec muscle. Patient is guarded about treatment of cancer however she is willing to consider a punch biopsy of the right breast. Past medical history: Diabetes mellitus type 2 with nephropathy Renovascular disease with renal artery stenosis (diagnosed 2016 by ultrasound). Central hypertension. Vitamin D deficiency. Chronic instability of right knee. Gait instability Documented abdominal bruits Past surgical history: Tonsillectomy 1963 Appendectomy 1963 Laparoscopy - endometriosis 1998 Arthroscopic knee surgery, right 2015 Past Family history: Son alive- healthy 4 brothers, 1 sister healthy Social history: Lives alone. Never smoker. No illicit drug use or alcohol use Allergies. Penicillin rash PHYSICAL EXAM: GENERAL APPEARANCE:Alert and oriented HEENT:Normocephalic, LUNGS:on 15 L 02 currently with some increased respiratory effort HEART:RR 3+ pitting edema in bilateral lower extremities BREAST: there is palpable axillary lymphadenopathy on the right side. There is asymmetry of the breast with right breast elevated and shrunk with suspicious skin changes elevating the right nipple no nipple discharge, left breast is ppearsn normal on visual exam, there is small palpable nodule in the upper outer quadrant - subdermal , no axillary lymphadenopathy, no nipple discharge ABDOMEN:Soft MUSCULOSKELETAL: extremities without gross deformity Assessment and plan: This is a 69-year-old elderly female with past medical history of hypertension, diabetes, renovascular disease, renal artery stenosis (diagnosed 2017 by ultrasound), who presents to [facility] ER w/ the chief complaint of bilateral lower extremity edema 1 week, which has progressively got worse in the past couple of day. She was noted to have lytic bone lesions on diagnostic imaging concerning for metastatic disease. She was also noted to have abnormal right breast mass with suspicious skin changes. Currently experiencing pulmonary edema after thoracentesis, and requiring 15 L 02 PLAN: - will reassess patient's respiratory status tomorrow, and if stable will plan to do bedside punch biopsy of the Right breast to obtain pathology, ER/MO/Her 2 - Likely Stage 4 disease 2/2 presence of lytic lesions, MedOnc follows Thank you for allowing me to participate in care of Ms. Sheikh. Vital Signs Vital Signs Date Time Temp Pulse Resp B/P (MAP) Pulse Ox O2 Delivery O2 Flow Rate FiO2 07/10/20 20:00 98.2 88 22 143/65 (91) 95 High Flow Cannula 15.0 07/08/20 12:54 92 I&Os I&O- Last 24 Hours up to 6 AM 07/10/20 06:00 Intake Total 660 ml Output Total 820 ml Balance -160 ml Laboratory Data Labs 24H Laboratory Tests 2 07/10/20 05:25: Nucleated Red Blood Cells % (auto) 0.0, Anion Gap 7L, Glomerular Filtration Rate 31.6L, Calcium Level 7.8L, Lactate Dehydrogenase 248H, Total Protein 4.7L, Albumin 1.8L 07/10/20 07:48: D-Dimer, Quantitative 1755.02H 07/10/20 11:20: Body Fluid pH 7.714, Body Fluid pH Source PLEURAL, Body Fluid WBC (Auto) 180H, Body Fluid RBC (Auto) < 2, Body Fluid Mononuclear Cells % Auto 81.1H, Fluid Polymorphonuclear Cell % Auto 18.9H, Body Fluid Glucose Source PLEURAL, Body Fluid Glucose 269, Body Fluid Protein Source THORACENTESIS, Body Fluid Total Protein 1.1, Body Fluid Albumin Source THORACENTESIS, Body Fluid Albumin 0.6, Body Fluid LDH Source PLEURAL, Body Fluid Lactate Dehydrogenase 69, Body Fluid Amylase Source PLEURAL, Body Fluid Amylase 12, Pleural Fluid Source PLEURAL, Pleural Fluid Color PALE YELLOW, Pleural Fluid Appearance CLEAR 07/10/20 12:42: Bedside Glucose (Misc Panel) 190H 07/10/20 14:53: Blood Gas Bicarbonate Standard 24.0, Arterial Blood pH 7.438, Arterial Blood Partial Pressure CO2 35.5, Arterial Blood Partial Pressure O2 54.8L, Arterial Blood Total CO2 24.6, Arterial Blood HCO3 23.5, Arterial Blood Base Excess -0.4, Arterial Blood Oxygen Saturation 89.2L 07/10/20 16:56: Bedside Glucose (Misc Panel) 304H 07/10/20 20:33: Bedside Glucose (Misc Panel) 353H CBC/BMP Laboratory Tests 07/10/20 05:25 Microbiology Microbiology 07/10/20 Acid Fast Stain, Received Pending 07/10/20 Mycobacterial Culture, Received Pending 07/10/20 Fungal Smear, Received Pending 07/10/20 Fungal Culture, Received Pending 07/10/20 Gram Stain - Final, Resulted 07/10/20 Anaerobic Culture, Resulted Pending 07/10/20 Body Fluid Culture, Received Pending Home Medications Scheduled Ascorbic Acid (Vitamin C) 500 Mg Tablet, 500 MG PO DAILY, (Reported) Blue-Green Algae (Spirulina) 500 Mg Tablet, 500 MG PO DAILY, (Reported) Cholecalciferol (Vitamin D3) (Vitamin D3) 10 Mcg Capsule, 10 MCG PO DAILY, (Reported) Cyanocobalamin (Vitamin B-12) (Vitamin B-12) 500 Mcg Tablet, 500 MCG PO DAILY, (Reported) Grape Seed Extract (Grape Seed Extract) 50 Mg Capsule, 50 MG PO DAILY, (Reported) Magnesium (Magnesium) 250 Mg Tablet, 250 MG PO QHS, (Reported) Metformin HCl (Metformin ER Gastric) 1,000 Mg [id number], 1,000 MG PO DAILY, (Re ported) Methylsulfonylmethane (Msm) 500 Mg Capsule, 500 MG PO QHS, (Reported) Potassium Gluconate (Potassium) 99 Mg Tablet, 595 MG PO QHS, (Reported) Vitamin B Complex (Vitamin B Complex) 1 Each Tablet, 1 TAB PO DAILY, (Reported) Scheduled PRN Aspirin (Aspirin EC) 81 Mg Tablet.dr, 81 MG PO BID PRN for PAIN, (Reported) Naproxen Sodium (Aleve) 220 Mg Tablet, 220 MG PO BID PRN for PAIN, (Reported) Allergies Coded Allergies: Penicillins (Verified Allergy, Mild, rash, 07/07/20) POORNIMA GUY DO Jul 10, 2020 21:55
[2020-07-11] VITALS: BP 132/56
[2020-07-11 04:00] VITALS: BP 100/55
[2020-07-11] MEDS: LEVOTHYROXINE 25MCG TABLET (0.025MG) PO SCH (05:54)
[2020-07-11] MEDS: HEPARIN SOD (PORCINE) 5000UNITS/ML 1ML VIAL/SYRINGE SC SCH ×3 (05:54→21:11)
[2020-07-11] MEDS: **hydrALAZINE** 10 MG TAB PO SCH ×3 (05:55→17:08)
[2020-07-11 06:03] LABS: HEMATOCRIT 28.8 % (36.0-47.0); HEMOGLOBIN 9.3 g/dl (12.0-15.5); MEAN CORPUSCULAR HEMOGLOBIN 30.1 pg (27.0-33.0); MEAN CORPUSCULAR HGB CONC 32.3 g/dl (32.0-36.5); MEAN CORPUSCULAR VOLUME 93.2 fl (80.0-96.0); PLATELET COUNT, AUTOMATED 388 10^3/uL (150-450); RED BLOOD COUNT 3.09 10^6/uL (4.00-5.40); WHITE BLOOD COUNT 12.3 10^3/uL (4.0-10.0)
[2020-07-11 06:19] LABS: CALCIUM LEVEL 7.5 MG/DL (8.8-10.2); CREATININE FOR GFR 1.75 MG/DL (0.55-1.30); GLOMERULAR FILTRATION RATE 30.6 (>39); POTASSIUM SERUM 4.5 MEQ/L (3.5-5.1)
[2020-07-11 08:00] VITALS: BP 142/70
[2020-07-11] MEDS: HumaLOG INSULIN (NovoLOG) PER UNIT SC SCH ×4 (08:06→21:11)
[2020-07-11] MEDS: ONDANSETRON 4MG/2ML VIAL IV PRN (08:06)
[2020-07-11] MEDS: ASPIRIN 81MG ENTERIC TABLET PO PRN (08:06)
[2020-07-11] MEDS: amLODIPine 5 MG TAB PO SCH (09:15)
[2020-07-11] MEDS: ASCORBIC ACID 500 MG TAB PO SCH (09:15)
[2020-07-11] MEDS: guaiFENesin ER 600 MG TAB PO SCH ×2 (09:15→21:11)
[2020-07-11] MEDS: CYANOCOBALAMIN 500 MCG TAB PO SCH (09:16)
[2020-07-11] MEDS: FUROSEMIDE 40MG/4ML VIAL (J1940) IV SCH ×2 (09:16→17:07)
--- NOTE | 2020-07-11 10:17 | IPNPDOC ---
Subjective Date Seen The patient was seen on 07/11/20. Subjective Chief Complaint/HPI Mrs. Sheikh is a 69 year old female with DM, hypertension, and renal artery stenosis who presents with bilateral lower extremity edema and found to have hypertensive urgency, acute kidney injury, CHF, and troponin increase. She was then subsequently found to have multiple lytic lesions (skull, thoracic cavity, lumbar spine), right breast cancer, and bilateral pleural effusions. Yesterday, right thoracentesis was performed and drained 1900cc of transudative fluid. Afterwards, patient developed re-expansion pulmonary edema which can be a complication of thoracentesis. Required 15L of oxygen. Consulted pulmonary, recommendations appreciated. Otherwise, this morning, she denies any chest pain or dyspnea. Objective Physical Examination General Exam: Positive: Alert, Cooperative Eye Exam: Positive: EOMI; Negative: Sclera icteric Neck Exam: Positive: Supple Chest Exam: Positive: Diminished Heart Exam: Positive: Rate Normal, Regular Rhythm Abdomen Exam: Positive: Normal bowel sounds, Soft; Negative: Tenderness Extremity Exam: Positive: Edema (bilateral pitting edema) Neuro Exam: Positive: Cranial Nerves 3-12 NL Psych Exam: Positive: Mental status NL, Anxiety Assessment /Plan Assessment Mrs. Sheikh is a 69 year old female with DM, hypertension, and renal artery stenosis who presents with bilateral lower extremity edema and found to have hypertensive urgency, acute kidney injury, CHF, and troponin increase. She was then subsequently found to have multiple lytic lesions (skull, thoracic cavity, lumbar spine), right breast cancer, and bilateral pleural effusions. Blood pressure is better controlled today. Continue with amlodipine and hydralazine q6h. When renal function improve, switch from hydralazine to lisinopril for right renal artery stenosis. Otherwise, troponin increase may be secondary to hypertensive urgency. The persistent elevation would be secondary to her ELVIA. ELVIA may be secondary to a combination of hypertensive urgency and NSAID use. Will provide supportive care, hold nephrotoxic agents, and provide blood pressure control. Otherwise, she had MRI brain for weakness in the legs. Demonstrated lytic lesions concerning for metastasis vs multiple myeloma. She does have a right breast lesion that appears shrunken and stiff. I reached out to oncology. Patient has cicatrized breast cancer. Recommending biopsy from Breast Surgery. Patient was found to have bilateral pulmonary edema. Drained 1.9L of transudative fluid on 07/10/2020. She subsequently developed re-expansion pulmonary edema requiring 15L. Consulted pulmonology. This can last for 24 hours. Continue with diuresis. Plan/VTE VTE Prophylaxis Ordered?: Yes Plan 1. Acute renal failure -Secondary to hypertensive urgency and NSAID use -Supportive care and blood pressure control -Lisinopril held 2. Lytic bone lesions -Most likely 2/2 to right breast cancer -Consulted oncology, recommendations appreciated -Breast surgery consulted, pending breast biopsy 3. Right renal artery stenosis -Seen on retroperitoneal US on 10/26/2016 -When renal function improves, restart lisinopril 4. Hypertensive urgency -End organ damage demonstrated by ELVIA and troponin rise -Blood pressure controlled with Amlodipine and hydralazine. Consider switching hydralazine to lisinopril when renal function improves 5. Elevated troponin -Trending troponin. Now starting to decline -EF 50 to 55% with grade 1 diastolic dysfunction 5. Acute decompensated HFpEF -EF 50 to 55% with grade 1 diastolic [place] [address] -Bilateral pulmonary effusions were transudative. Drained 1.9L from right chest cavity on 07/10/2020 -IV Lasix 40mg BID 6. Acute re-expansion pulmonary edema -Complication from right thoracentesis on 07/10/2020 -Supplemental oxygen and supportive care -If oxygen requirements continue to rise, may need CPAP -Pulmonary consulted, recommendations appreciated 7. Gait instability -Patient has history of gait instability. PCP had ordered MRI of LS spine, but patient refused -Patient agreeable to MRI of LS spine and MRI brain -No acute stroke. No significant stenosis. 8. Diabetes mellitus -Hold metformin -Sliding scale insulin while inpatient -Carbohydrate consistent diet 9. Hypothyroidism -Continue levothyroxine 10. DVT ppx -Heparin subQ due to ELVIA Disposition: Pending renal improvement, breast biopsy, and improvement in respiratory status VS, I&O, 24H, Fishbone Vital Signs/I&O Vital Signs Date Time Temp Pulse Resp B/P (MAP) Pulse Ox O2 Delivery O2 Flow Rate FiO2 07/11/20 09:15 84 142/70 07/11/20 08:00 98.7 19 92 Nasal Cannula 15.0 07/08/20 12:54 92 I&O- Last 24 Hours up to 6 AM 07/11/20 06:00 Intake Total 1700 ml Output Total 1600 ml Balance 100 ml Laboratory Data 24H LABS Laboratory Tests 2 07/10/20 11:20: Body Fluid pH 7.714, Body Fluid pH Source PLEURAL, Body Fluid WBC (Auto) 180H, Body Fluid RBC (Auto) < 2, Body Fluid Mononuclear Cells % Auto 81.1H, Fluid Polymorphonuclear Cell % Auto 18.9H, Body Fluid Glucose Source PLEURAL, Body Fluid Glucose 269, Body Fluid Protein Source THORACENTESIS, Body Fluid Total Protein 1.1, Body Fluid Albumin Source THORACENTESIS, Body Fluid Albumin 0.6, Body Fluid LDH Source PLEURAL, Body Fluid Lactate Dehydrogenase 69, Body Fluid Amylase Source PLEURAL, Body Fluid Amylase 12, Pleural Fluid Source PLEURAL, Pleural Fluid Color PALE YELLOW, Pleural Fluid Appearance CLEAR 07/10/20 12:42: Bedside Glucose (Misc Panel) 190H 07/10/20 14:53: Blood Gas Bicarbonate Standard 24.0, Arterial Blood pH 7.438, Arterial Blood Partial Pressure CO2 35.5, Arterial Blood Partial Pressure O2 54.8L, Arterial Blood Total CO2 24.6, Arterial Blood HCO3 23.5, Arterial Blood Base Excess -0.4, Arterial Blood Oxygen Saturation 89.2L 07/10/20 16:56: Bedside Glucose (Misc Panel) 304H 07/10/20 20:33: Bedside Glucose (Misc Panel) 353H 07/11/20 05:30: Anion Gap 8, Glomerular Filtration Rate 30.6L, Calcium Level 7.5L 07/11/20 05:31: Nucleated Red Blood Cells % (auto) 0.0 CBC/BMP Laboratory Tests 07/11/20 05:30 07/11/20 05:31 Microbiology Microbiology 07/10/20 Acid Fast Stain, Received Pending 07/10/20 Mycobacterial Culture, Received Pending 07/10/20 Fungal Smear, Received Pending 07/10/20 Fungal Culture, Received Pending 07/10/20 Gram Stain - Final, Resulted 07/10/20 Anaerobic Culture, Resulted Pending 07/10/20 Body Fluid Culture, Received Pending AURORA ALMEIDA 26, 2021 10:17
[2020-07-11 10:42] LABS: ALBUMIN 2.01 GM/DL (3.29-5.55); ALBUMIN % 45.6 % (55.8-66.1); ALPHA-1-GLOBULIN % 9.5 % (2.9-4.9); ALPHA-1-GLOBULINS 0.42 GM/DL (0.17-0.41); ALPHA-2-GLOBULINS 0.84 GM/DL (0.42-0.99); BETA-1-GLOBULINS 0.35 GM/DL (0.28-0.60); BETA-2-GLOBULINS 0.36 GM/DL (0.19-0.55); BETA-2-GLOBULINS % 8.1 % (3.2-6.5); GAMMA GLOBULIN % 9.6 % (11.1-18.8); GAMMA GLOBULINS 0.42 GM/DL (0.65-1.58)
[2020-07-11 12:00] VITALS: BP 128/82
--- NOTE | 2020-07-11 12:15 | CCN ---
CRITICAL CARE NOTE DATE: 07/11/2020 SUBJECTIVE: I was called to evaluate this 69-year-old female for hypoxemia. Admitted with increasing edema of her lower extremities, she was found to have bilateral pleural effusions. A right-sided thoracentesis was performed by interventional radiology and subsequently, the patient became increasingly hypoxic. There is an extensive past medical history. The patient has diffusely metastatic breast cancer, diabetes mellitus, diabetic nephropathy, renal artery stenosis, and hypertension. OBJECTIVE: GENERAL APPEARANCE: At bedside, she is ill-appearing and mildly tachypneic. VITAL SIGNS: Her temperature is 98, pulse rate 84, respirations 28, blood pressure 142/70, oxygen saturation between 90% and 93% on 15 L of oxygen. INTAKE AND OUTPUT: For the past 24 hours 1320 in and 1700 out. HEENT: Oral and nasal mucosa are pink. NECK: Is in deed supple, but jugular veins are 4 cm above the sternal angle. Carotid upstroke sluggish. No bruit. HEART: Sounds are regular with a soft systolic murmur. LUNGS: Breath sounds coarse, diminished anteriorly. There is dullness from T6 down on the right and T5 down on the left. Dressing on the right side is in place. There is no active drainage. ABDOMEN: Soft with a bruit and positive bowel sounds. EXTREMITIES: Show edema bilaterally from the calf down and pulses are palpable x4. DIAGNOSTIC STUDIES: White cell count was 12.3, hemoglobin 9.3, hematocrit 28.8, platelet count 388,000. Electrolytes are sodium 138, potassium 4.5, chloride 106, CO2 of 24, BUN 53, creatinine 1.75, glucose 292, calcium 7.5, LDH 248, protein 4.7, albumin 1.8. Arterial blood gases show a pH of 7.43, pCO2 of 35, and pO2 of 54. Pleural fluid analysis revealed a pH of 7.7, white cell count was 180 with 18% neutrophils, 81% monocytes. The protein was 1.1 and LDH 69. Chest imaging was reviewed and there is a left effusion. The right side shows some reexpansion pulmonary edema in the right base. CT scan prior to drainage showed bilateral pleural effusions with some compressive atelectasis and multiple bone metastasis. ASSESSMENT AND PLAN: 1. The primary problem requiring critical attention is hypoxemia. The patient is now on high flow oxygen and maintaining adequate saturations. If her saturation begins to drop, CPAP may be necessary. I will arrange for a repeat chest x-ray. 2. Pulmonary edema. The patient is diuresing with Lasix. We will follow intake and output (I&O) closely to determine appropriate Lasix dose. I suspect there is significant excessive fluid given her markedly elevated BNP of 18,000. 3. Diffusely metastatic breast cancer. Biopsy is to be performed today. 4. Bilateral pleural effusions. The criteria suggests transudate; however, cytology is pending. I would not put the patient through additional pleural drainage in the absence of significant symptoms and if pleural drainage is affected, a thoracostomy tube should remain in place. 5. Acute kidney injury. The patient may improve with optimal fluid volume status after diuresis. 6. The patient is very seriously ill with multisystem disease and diffusely metastatic malignancy. Her prognosis overall is poor. CRITICAL CARE TIME: 76 minutes spent in the provision of bedside critical care and coordination exclusive of any procedure time.
[2020-07-11] MEDS ORDERED: LIDOCAINE 1% MDV 20ML VIAL SC ONE (15:30)
[2020-07-11] MEDS ORDERED: SODIUM BICARBONATE 4.2% INJ 10 ML SYRINGE XX ONE (15:30)
[2020-07-11 16:00] VITALS: BP 126/58
--- NOTE | 2020-07-11 19:57 | IPNPDOC ---
Subjective General Date Seen: Jul 11, 2020 (6 pm) Subject Chief Complaint/History This is a 69-year-old elderly lady w PMHX of hypertension, diabetes, renovascular disease, renal artery stenosis (diagnosed 2017 by ultrasound), who presents to [facility] ER w/ the chief complaint of bilateral lower extremity edema 1 week, which has progressively got worse in the past few days. Patient is a very poor historian and is not compliant with medications. Breast surgery was consulted for biopsy of the right breast mass with suspicious skin changes which was noted on the exam. Patient states that she has had right breast mass for 5 years and she did not seek treatment. On diagnostic imaging there were lytic bone lesions noted. CT chest also shows right breast mass extending from skin to pec muscle. After thoracentesis done 07/10/20 patient become hypoxic and her 02 requirements significantly increased - she is on 15 L 02 since yesterday. Current Medications Current Medications Current Medications Medications (Trade) Dose Ordered Sig/Gunjan Route PRN Reason Start Time Stop Time Status Last Admin Dose Admin Amlodipine Besylate (Norvasc) 5 mg DAILY PO 07/08/20 09:00 07/11/20 09:15 Ascorbic Acid (Vitamin C) 500 mg DAILY PO 07/08/20 09:00 07/11/20 09:15 Aspirin (Ecotrin) 81 mg BID PRN PO PAIN 07/08/20 01:20 07/11/20 08:06 Cyanocobalamin (Vitamin B12) 500 mcg DAILY PO 07/08/20 09:00 07/11/20 09:16 Dextrose (Dextrose 50%) 25 ml ASDIRECTED PRN IV SEE LABEL COMMENTS 07/08/20 02:45 Furosemide (LASIX injection) 40 mg BID IV 07/08/20 09:00 07/09/20 07:19 DC 07/08/20 21:37 Furosemide (LASIX injection) 40 mg BID@09,17 IV 07/11/20 09:00 07/11/20 17:07 Glucagon (Glucagon) 1 mg ASDIRECTED PRN SC SEE LABEL COMMENTS 07/08/20 02:45 Glucose (Glucose) 16 GM ASDIRECTED PRN PO SEE LABEL COMMENTS 07/08/20 02:45 Guaifenesin (Mucinex Tab Er) 600 mg BID PO 07/09/20 09:05 07/11/20 09:15 Heparin Sodium (Porcine) (Heparin) 5,000 units Q8H SC 07/08/20 06:00 07/11/20 14:40 Home Med (Med Rec Complete!) ASDIRECTED XX 07/07/20 22:45 07/07/20 22:42 DC Hydralazine HCl (Apresoline) 10 mg Q6H PO 07/08/20 06:00 07/11/20 17:08 Insulin Detemir (Levemir Insulin) 5 units QHS SC 07/07/20 21:00 07/10/20 21:07 Insulin Human Lispro (HumaLOG INSULIN) SEE PROTOCOL TABLE AC SC 07/08/20 07:30 07/11/20 17:07 Insulin Human Lispro (HumaLOG INSULIN) SEE PROTOCOL TABLE QHS SC 07/08/20 21:00 07/10/20 21:06 Levothyroxine Sodium (Synthroid) 25 mcg DAILY@06 PO 07/08/20 06:00 07/11/20 05:54 Lisinopril (Prinivil) 10 mg DAILY PO 07/08/20 09:00 07/08/20 06:43 DC Ondansetron HCl (ZOFRAN INJection) 4 mg Q6H IV 07/09/20 17:00 07/09/20 17:22 DC Ondansetron HCl (ZOFRAN INJection) 4 mg Q6H PRN IV NAUSEA 07/09/20 17:10 07/11/20 08:06 Allergies Coded Allergies: Penicillins (Verified Allergy, Mild, rash, 07/07/20) Objective Physical Examination Examination GENERAL APPEARANCE: alert and oriented, appears very tired LUNGS: on 15 L 02, saturating only at 92% HEART: no tachycardia ABDOMEN: nondistended EXTREMITIES:no gross deformity Vital Signs Vital Signs Date Time Temp Pulse Resp B/P (MAP) Pulse Ox O2 Delivery O2 Flow Rate FiO2 07/11/20 17:08 126/58 07/11/20 16:10 15.0 07/11/20 16:00 98.6 69 20 91 High Flow Cannula 07/08/20 12:54 92 I&Os I&O- Last 24 Hours up to 6 AM 07/11/20 06:00 Intake Total 1700 ml Output Total 1600 ml Balance 100 ml Laboratory Data Labs 24H Laboratory Tests 2 07/10/20 20:33: Bedside Glucose (Misc Panel) 353H 07/11/20 05:30: Anion Gap 8, Glomerular Filtration Rate 30.6L, Calcium Level 7.5L 07/11/20 05:31: Nucleated Red Blood Cells % (auto) 0.0 07/11/20 12:18: Bedside Glucose (Misc Panel) 248H 07/11/20 16:47: Bedside Glucose (Misc Panel) 260H CBC/BMP Laboratory Tests 07/11/20 05:30 07/11/20 05:31 Microbiology Microbiology 07/10/20 Acid Fast Stain, Received Pending 07/10/20 Mycobacterial Culture, Received Pending 07/10/20 Fungal Smear, Received Pending 07/10/20 Fungal Culture, Received Pending 07/10/20 Gram Stain - Final, Resulted 07/10/20 Anaerobic Culture, Resulted Pending 07/10/20 Body Fluid Culture, Received Pending Impression This is a 69-year-old elderly female with past medical history of hypertension, diabetes, renovascular disease, renal artery stenosis (diagnosed 2017 by ultrasound), who presents to [facility] ER w/ the chief complaint of bilateral lower extremity edema 1 week, which has progressively got worse in the past couple of day. She was noted to have lytic bone lesions on diagnostic imaging concerning for metastatic disease. She was also noted to have abnormal right breast mass with suspicious skin changes. Currently experiencing pulmonary edema after thoracentesis, and requiring 15 L 02 PLAN: - will proceed with Right breast biopsy when respiratory status improves - possibly will get ER/OR/Her 2 receptors from cell block from thoracentesis fluid - Likely Stage 4 disease 2/2 presence of lytic lesions, [facility] follows Plan / VTE VTE Prophylaxis Ordered?: Yes POORNIMA GUY DO Jul 11, 2020 19:53
[2020-07-11 20:00] VITALS: BP 132/59
[2020-07-11] MEDS: LEVEMIR (INSULIN DETEMIR) 1 UNITS/0.01ML SC SCH (21:12)
[2020-07-12] VITALS: BP 116/55
[2020-07-12] MEDS: **hydrALAZINE** 10 MG TAB PO SCH ×4 (00:27→17:59)
[2020-07-12 04:00] VITALS: BP 127/60
[2020-07-12 05:25] LABS: HEMATOCRIT 27.8 % (36.0-47.0); HEMOGLOBIN 9.1 g/dl (12.0-15.5); MEAN CORPUSCULAR HGB CONC 32.7 g/dl (32.0-36.5); MEAN CORPUSCULAR VOLUME 94.6 fl (80.0-96.0); PLATELET COUNT, AUTOMATED 361 10^3/uL (150-450); RED BLOOD COUNT 2.94 10^6/uL (4.00-5.40); WHITE BLOOD COUNT 9.6 10^3/uL (4.0-10.0)
[2020-07-12 05:51] LABS: CALCIUM LEVEL 7.5 MG/DL (8.8-10.2); CREATININE FOR GFR 1.72 MG/DL (0.55-1.30); GLOMERULAR FILTRATION RATE 31.2 (>39); POTASSIUM SERUM 4.7 MEQ/L (3.5-5.1)
[2020-07-12] MEDS: LEVOTHYROXINE 25MCG TABLET (0.025MG) PO SCH (06:12)
[2020-07-12] MEDS: HEPARIN SOD (PORCINE) 5000UNITS/ML 1ML VIAL/SYRINGE SC SCH ×3 (06:14→21:24)
[2020-07-12] MEDS: HumaLOG INSULIN (NovoLOG) PER UNIT SC SCH ×4 (07:30→21:23)
[2020-07-12 08:00] VITALS: BP 127/60
[2020-07-12] MEDS: guaiFENesin ER 600 MG TAB PO SCH ×2 (08:02→21:22)
[2020-07-12] MEDS: ASCORBIC ACID 500 MG TAB PO SCH (08:02)
[2020-07-12] MEDS: CYANOCOBALAMIN 500 MCG TAB PO SCH (08:02)
[2020-07-12] MEDS: amLODIPine 5 MG TAB PO SCH (08:02)
[2020-07-12] MEDS: FUROSEMIDE 40MG/4ML VIAL (J1940) IV SCH ×3 (08:02→21:24)
--- NOTE | 2020-07-12 08:47 | REP ---
INDICATION: pleural effusions/ hypoxemia. COMPARISON: Comparison chest x-ray July 10, and July 09, 2020. TECHNIQUE: Portable upright AP chest radiograph. FINDINGS: There are extensive bilateral perihilar areas of pulmonary parenchymal opacification today consistent with pulmonary edema and or progressive pneumonia. Diffusely prominent interstitium. Left pleural effusion persists essentially unchanged. There is slight blunting of the right lateral pleural angle. Radiolucent bone lesions are again seen consistent with skeletal metastatic disease. There is a pathologic fracture involving the right 7th rib. Possibly the 8th rib. Heart is prominent unchanged. Patchy areas of increased density persist in the left perihilar region and right base. A new area of more dense consolidation is seen in the right upper lobe. IMPRESSION: Diffuse interstitial pulmonary edema pattern as a change from the prior study. Infiltrates are more prominent. Left pleural effusion persists. Skeletal metastatic disease again noted.. <Electronically signed by Donald Dunaway > 07/12/20 0805
--- NOTE | 2020-07-12 09:57 | CR ---
PULMONARY CRITCAL CARE SERVICE PROGRESS NOTE DATE: 07/12/2020 HISTORY OF PRESENT ILLNESS: The patient is seen in the Progressive Care Unit. This is hospital day number 5. She is resting reasonably comfortably, no new respiratory problems through the evening. PHYSICAL EXAMINATION: At bedside her temperature is 97, pulse rate 71, respirations 18, blood pressure 127/60, oxygen at 15 liters yields a saturation of 92%. I&Os for the past 24 hours: 1715 in, 1200 out; since midnight 300 in, 250 out. General: She is somnolent, ill appearing. HEENT: Oral mucosa is pink. No stridor Neck: Jugular venous distended. Heart: Sounds regular without appreciable murmur. Lungs: Breath sounds diminished with diffuse rales. Abdomen: Soft. Extremities: Show edema. DIAGNOSTIC STUDIES: White count 9.6, hemoglobin 9.1, hemoglobin 27.8, platelet count 361,000. Sodium 138, to 4.7, chloride 108, CO2 23, BUN 54, creatinine 1.72, glucose 111. IMAGING STUDIES: Her chest x-ray film was reviewed and shows increased edema bilaterally. Formal report is pending. ASSESSMENT AND PLAN: 1. The primary problem is hypoxemia: Her oxygen saturations are acceptable at this point on 15 liters of oxygen via nasal cannula. 2. Pulmonary edema: I have discussed with the Hospitalist Service my recommendation would be to increase her dose of Lasix. 3. Diffuse metastatic breast cancer: The patient will need a biopsy. 4. Pleural effusion secondary to number 2. 5. Acute kidney injury: Creatinine is stable. The patient's conditions remains tenuous. I will continue to follow with you on a daily basis.
[2020-07-12 12:00] VITALS: BP 133/63
[2020-07-12 16:00] VITALS: BP 136/64
--- NOTE | 2020-07-12 16:55 | IPNPDOC ---
Subjective Date Seen The patient was seen on 07/12/20. Subjective Chief Complaint/HPI Mrs. Sheikh is a 69 year old female with DM, hypertension, and renal artery stenosis who presents with bilateral lower extremity edema and found to have hypertensive urgency, acute kidney injury, CHF, and troponin increase. She was then subsequently found to have multiple lytic lesions (skull, thoracic cavity, lumbar spine), right breast cancer, and bilateral pleural effusions. No events overnight. Patient was seen this morning. She reports some dyspnea, but not as severe as prior. CXR demonstrates diffuse pulmonary edema. Spoke with pulmonology, increasing diuretics. Objective Physical Examination General Exam: Positive: Alert, Cooperative Eye Exam: Positive: EOMI; Negative: Sclera icteric Neck Exam: Positive: Supple Chest Exam: Positive: Diminished Heart Exam: Positive: Rate Normal, Regular Rhythm Abdomen Exam: Positive: Normal bowel sounds, Soft; Negative: Tenderness Extremity Exam: Positive: Edema (bilateral pitting edema) Neuro Exam: Positive: Cranial Nerves 3-12 NL Psych Exam: Positive: Mental status NL, Anxiety Assessment /Plan Assessment Mrs. Sheikh is a 69 year old female with DM, hypertension, and renal artery stenosis who presents with bilateral lower extremity edema and found to have hypertensive urgency, acute kidney injury, CHF, and troponin increase. She was then subsequently found to have multiple lytic lesions (skull, thoracic cavity, lumbar spine), right breast cancer, and bilateral pleural effusions. Blood pressure is better controlled today. Continue with amlodipine and hydralazine q6h. When renal function improve, switch from hydralazine to lisinopril for right renal artery stenosis. Otherwise, troponin increase may be secondary to hypertensive urgency. The persistent elevation would be secondary to her ELVIA. ELVIA may be secondary to a combination of hypertensive urgency and NSAID use. Will provide supportive care, hold nephrotoxic agents, and provide blood pressure control. Otherwise, she had MRI brain for weakness in the legs. Demonstrated lytic lesions concerning for metastasis vs multiple myeloma. She does have a right breast lesion that appears shrunken and stiff. I reached out to oncology. Patient has cicatrized breast cancer. Recommending biopsy from Breast Surgery. Patient was found to have bilateral pulmonary edema. Drained 1.9L of transudative fluid on 07/10/2020. She subsequently developed re-expansion pul monary edema requiring 15L. Consulted pulmonology. Increased diuresis today. Plan/VTE VTE Prophylaxis Ordered?: Yes Plan 1. Acute renal failure -Secondary to hypertensive urgency and NSAID use -Supportive care and blood pressure control -Lisinopril held 2. Lytic bone lesions -Most likely 2/2 to right breast cancer -Consulted oncology, recommendations appreciated -Breast surgery consulted, pending breast biopsy 3. Right renal artery stenosis -Seen on retroperitoneal US on 10/26/2016 -When renal function improves, restart lisinopril 4. Hypertensive urgency -End organ damage demonstrated by ELVIA and troponin rise -Blood pressure controlled with Amlodipine and hydralazine. Consider switching hydralazine to lisinopril when renal function improves 5. Elevated troponin -Trending troponin. Now starting to decline -EF 50 to 55% with grade 1 diastolic dysfunction 5. Acute decompensated HFpEF -EF 50 to 55% with grade 1 diastolic [place] [address] -Bilateral pulmonary effusions were transudative. Drained 1.9L from right chest cavity on 07/10/2020 -IV Lasix 40mg TID. Fluid restriction 1500mL. 2gm sodium diet 6. Acute re-expansion pulmonary edema -Complication from right thoracentesis on 07/10/2020 -Supplemental oxygen and supportive care -If oxygen requirements continue to rise, may need CPAP -Pulmonary consulted, recommendations appreciated 7. Gait instability -Patient has history of gait instability. PCP had ordered MRI of LS spine, but patient refused -Patient agreeable to MRI of LS spine and MRI brain -No acute stroke. No significant stenosis. 8. Diabetes mellitus -Hold metformin -Sliding scale insulin while inpatient -Carbohydrate consistent diet 9. Hypothyroidism -Continue levothyroxine 10. DVT ppx -Heparin subQ due to ELVIA Disposition: Pending renal improvement, breast biopsy, and improvement in respiratory status VS, I&O, 24H, [facility] Vital Signs/I&O Vital Signs Date Time Temp Pulse Resp B/P (MAP) Pulse Ox O2 Delivery O2 Flow Rate FiO2 07/12/20 16:00 98.5 68 21 136/64 (88) 91 High Flow Cannula 15.0 07/08/20 12:54 92 I&O- Last 24 Hours up to 6 AM 07/12/20 06:00 Intake Total 1655 ml Output Total 1250 ml Balance 405 ml Laboratory Data 24H LABS Laboratory Tests 2 07/11/20 21:04: Bedside Glucose (Misc Panel) 373H 07/12/20 05:08: Nucleated Red Blood Cells % (auto) 0.0, Anion Gap 7L, Glomerular Filtration Rate 31.2L, Calcium Level 7.5L 07/12/20 12:08: Bedside Glucose (Misc Panel) 358H CBC/BMP Laboratory Tests 07/12/20 05:08 Microbiology Microbiology 07/10/20 Acid Fast Stain, Received Pending 07/10/20 Mycobacterial Culture, Received Pending 07/10/20 Fungal Smear, Received Pending 07/10/20 Fungal Culture, Received Pending 07/10/20 Gram Stain - Final, Complete 07/10/20 Anaerobic Culture - Final, Complete 07/10/20 Body Fluid Culture - Final, Complete AURORA ALMEIDA DO Jul 12, 2020 16:55
[2020-07-12] MEDS: traMADol 50 MG TAB PO PRN (17:59)
[2020-07-12 20:00] VITALS: BP 125/64
[2020-07-12] MEDS: LEVEMIR (INSULIN DETEMIR) 1 UNITS/0.01ML SC SCH (21:23)
[2020-07-12] MEDS: ONDANSETRON 4MG/2ML VIAL IV PRN (21:38)
[2020-07-13] VITALS: BP 130/64
[2020-07-13] MEDS: **hydrALAZINE** 10 MG TAB PO SCH ×4 (00:10→18:16)
[2020-07-13 04:00] VITALS: BP 128/61
[2020-07-13] MEDS: LEVOTHYROXINE 25MCG TABLET (0.025MG) PO SCH (05:37)
[2020-07-13] MEDS: HEPARIN SOD (PORCINE) 5000UNITS/ML 1ML VIAL/SYRINGE SC SCH ×3 (05:38→21:07)
[2020-07-13 06:22] LABS: HEMATOCRIT 27.8 % (36.0-47.0); HEMOGLOBIN 8.8 g/dl (12.0-15.5); MEAN CORPUSCULAR HEMOGLOBIN 30.3 pg (27.0-33.0); MEAN CORPUSCULAR HGB CONC 31.7 g/dl (32.0-36.5); MEAN CORPUSCULAR VOLUME 95.9 fl (80.0-96.0); PLATELET COUNT, AUTOMATED 397 10^3/uL (150-450); WHITE BLOOD COUNT 9.4 10^3/uL (4.0-10.0)
[2020-07-13] MEDS: FUROSEMIDE 40MG/4ML VIAL (J1940) IV SCH ×3 (06:35→21:08)
[2020-07-13 06:44] LABS: CALCIUM LEVEL 8.1 MG/DL (8.8-10.2); CREATININE FOR GFR 1.83 MG/DL (0.55-1.30); GLOMERULAR FILTRATION RATE 29.1 (>39)
[2020-07-13 08:00] VITALS: BP 130/60
[2020-07-13 08:10] LABS: ABG BASE EXCESS -2.8 (-2.0-2.0); ABG O2 SATURATION 93.9 % (95.0-99.0); ABG PARTIAL PRESSURE O2 70.4 mmHg (75.0-100.0); ABG STANDARD HCO3 22.1 MEQ/L (22.0-26.0); ABG TOTAL CO2 23.1 MEQ/L (23.0-31.0)
--- NOTE | 2020-07-13 08:52 | REP ---
INDICATION: pleural effusions/ hypoxemia. COMPARISON: Comparison chest x-ray July 12, 2020. TECHNIQUE: Portable upright AP chest radiograph. FINDINGS: There are bilateral pleural effusions evident, right larger than left and right increased since yesterday's radiograph. Cardiomegaly diffuse interstitial edema pattern and bilateral perihilar infiltrates are again noted extensively. Oxygen delivery tubing and monitoring electrodes are seen.. Bony destructive lesions again noted as on yesterday's radiograph. IMPRESSION: Increasing right pleural effusion. Extensive bilateral infiltrates. Diffuse interstitial edema pattern.. <Electronically signed by Donald Dunaway > 07/13/20 2182
[2020-07-13] MEDS: ASCORBIC ACID 500 MG TAB PO SCH (09:11)
[2020-07-13] MEDS: amLODIPine 5 MG TAB PO SCH (09:11)
[2020-07-13] MEDS: guaiFENesin ER 600 MG TAB PO SCH ×2 (09:11→21:07)
[2020-07-13] MEDS: LEVEMIR (INSULIN DETEMIR) 1 UNITS/0.01ML SC SCH ×2 (09:11→21:08)
[2020-07-13] MEDS: HumaLOG INSULIN (NovoLOG) PER UNIT SC SCH ×4 (09:11→21:00)
[2020-07-13] MEDS: CYANOCOBALAMIN 500 MCG TAB PO SCH (09:12)
[2020-07-13] MEDS: traMADol 50 MG TAB PO PRN ×2 (09:12→13:23)
[2020-07-13 12:00] VITALS: BP 124/59
--- NOTE | 2020-07-13 13:19 | CCN ---
PULMONARY CRITICAL CARE NOTE DATE: 07/13/2020 SUBJECTIVE: The patient is seen in the progressive care unit. This is hospital day #6. She has had some dyspnea over the past 24 hours. PHYSICAL EXAMINATION: At bedside, her temperature is 97, pulse rate 61, respirations 22 nonlabored, blood pressure 130/60, oxygen saturation 95%. Intake and output (I and O) for the past 24 hours 750 in, 850 out. Since midnight 700 in, 650 out. She is ill-appearing. Oral mucosa is pink. Jugular veins are distended. Heart sounds regular, with no appreciable murmur. Breath sounds dull in the bases. Diffuse rales and coarse pleural sounds. Abdomen is soft, obese. Extremities show edema. Pulses time four. DIAGNOSTIC STUDIES: Her white cell count is 9.4, hemoglobin 8.8, hematocrit 27.8, platelet count 397,000. Sodium is 136, potassium 5.0, chloride 105, CO2 is 24, BUN 61, creatinine 1.83, glucose 122. Arterial blood gasses show a pH of 7.38, pCO2 of 38, pO2 of 70. Chest x-ray continues to show pulmonary edema. Echocardiogram from 07/08/2020 showed an elevated central venous pressure (CVP). ASSESSMENTS AND PLAN: 1. Pulmonary edema. The patient's Hernandez catheter was malfunctioning. This has now been corrected and urine output is up significantly. 2. Hypoxemia. Patient is now requiring 100% by hi-flow. Saturations are acceptable, as is pO2 on the arterial blood gas. 3. Diffuse metastatic breast cancer. Biopsy pending. 4. Acute kidney injury. As noted above, the Hernandez was malfunctioning. I would expect the creatinine to improve. Will continue to follow. Patient's condition remains tenuous and I will continue to follow with you on a daily basis.
--- NOTE | 2020-07-13 15:41 | IPNPDOC ---
Subjective Date Seen The patient was seen on 07/13/20. Subjective Chief Complaint/HPI Mrs. Sheikh is a 69 year old female with DM, hypertension, and renal artery stenosis who presents with bilateral lower extremity edema and found to have hypertensive urgency, acute kidney injury, CHF, and troponin increase. She was then subsequently found to have multiple lytic lesions (skull, thoracic cavity, lumbar spine), right breast cancer, and bilateral pleural effusions. Overnight, oxygen requirements increased to max Vapotherm. ABG is appropriate. Otherwise, patient is able to speak in full sentences. She has chest tightness, but does not appear to be in distress. Nursing inserted viveros catheter and 800mL drained. She may have had acute urinary retention which may have exacerbated her respiratory status. Will continuing monitoring her urine output and respiratory status. Objective Physical Examination General Exam: Positive: Alert, Cooperative Eye Exam: Positive: EOMI; Negative: Sclera icteric Neck Exam: Positive: Supple Chest Exam: Positive: Diminished Heart Exam: Positive: Rate Normal, Regular Rhythm Abdomen Exam: Positive: Normal bowel sounds, Soft; Negative: Tenderness Extremity Exam: Positive: Edema (bilateral pitting edema) Neuro Exam: Positive: Cranial Nerves 3-12 NL Psych Exam: Positive: Mental status NL, Anxiety Assessment /Plan Assessment Mrs. Sheikh is a 69 year old female with DM, hypertension, and renal artery stenosis who presents with bilateral lower extremity edema and found to have hypertensive urgency, acute kidney injury, CHF, and troponin increase. She was then subsequently found to have multiple lytic lesions (skull, thoracic cavity, lumbar spine), right breast cancer, and bilateral pleural effusions. Blood pressure is better controlled today. Continue with amlodipine and hydralazine q6h. When renal function improve, switch from hydralazine to lisinopril for right renal artery stenosis. Otherwise, troponin increase may be secondary to hypertensive urgency. The persistent elevation would be secondary to her ELVIA. ELVIA may be secondary to a combination of hypertensive urgency and NSAID use. Will provide supportive care, hold nephrotoxic agents, and provide blood pressure control. Otherwise, she had MRI brain for weakness in the legs. Demonstrated lytic lesions concerning for metastasis vs multiple myeloma. She does have a right breast lesion that appears shrunken and stiff. I reached out to oncology. Patient has cicatrized breast cancer. Recommending biopsy from Breast Surgery. Patient was found to have bilateral pulmonary edema. Drained 1.9L of transudative fluid on 07/10/2020. She subsequently developed re-expansion pulmonary edema requiring 15L. Consulted pulmonology, recommendations appreicated. 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 Viveros catheter placed and she output 800mL. This may have worsened her respiratory status. Will observe her on high flow and see how she does. If she doesnt't improve, may need to start considering CPAP. Plan/VTE VTE Prophylaxis Ordered?: Yes Plan 1. Acute renal failure -Secondary to hypertensive urgency and NSAID use -Supportive care and blood pressure control -Lisinopril held 2. Lytic bone lesions -Most likely 2/2 to right breast cancer -Consulted oncology, recommendations appreciated -Breast surgery consulted, pending breast biopsy 3. Acute decompensated HFpEF -EF 50 to 55% with grade 1 diastolic [place] [address] -Bilateral pulmonary effusions were transudative. Drained 1.9L from right chest cavity on 07/10/2020 -IV Lasix 40mg TID. Fluid restriction 1500mL. 2gm sodium diet -May need to consider CPAP if respiratory status does not improve 4. Acute re-expansion pulmonary edema -Complication from right thoracentesis on 07/10/2020 -Supplemental oxygen and supportive care -If oxygen requirements continue to rise, may need CPAP -Pulmonary consulted, recommendations appreciated 5. Acute urinary retention -On 07/13/2020, Viveros placed and removed 800mL -Since on high frequently Lasix, will continue Viveros for accurate I/O's -She may have not been able to appropriately diuresis causing worsening respiratory status. on evening 07/12 and morning 07/13 6. Right renal artery stenosis -Seen on retroperitoneal US on 10/26/2016 -When renal function improves, restart lisinopril 7. Hypertensive urgency -End organ damage demonstrated by ELVIA and troponin rise -Blood pressure controlled with Amlodipine and hydralazine. Consider switching hydralazine to lisinopril when renal function improves 8. Elevated troponin -Trending troponin. Now starting to decline -EF 50 to 55% with grade 1 diastolic dysfunction 9. Gait instability -Patient has history of gait instability. PCP had ordered MRI of LS spine, but patient refused -Patient agreeable to MRI of LS spine and MRI brain -No acute stroke. No significant stenosis. 10. Diabetes mellitus -Hold metformin -Sliding scale insulin while inpatient -Carbohydrate consistent diet 11. Hypothyroidism -Continue levothyroxine 12. DVT ppx -Heparin subQ due to ELVIA Disposition: Pending renal improvement, breast biopsy, and improvement in respiratory status. May need CPAP if respiratory status worsens. VS, I&O, 24H, Fishbone Vital Signs/I&O Vital Signs Date Time Temp Pulse Resp B/P (MAP) Pulse Ox O2 Delivery O2 Flow Rate FiO2 07/13/20 13:53 16 07/13/20 13:23 54 93 HVNI-Vapotherm 40.0 100 07/13/20 12:00 97.0 124/59 (80) I&O- Last 24 Hours up to 6 AM 07/13/20 06:00 Intake Total 670 ml Output Total 600 ml Balance 70 ml Laboratory Data 24H LABS Laboratory Tests 2 07/12/20 17:22: Bedside Glucose (Misc Panel) 455H 07/12/20 21:04: Bedside Glucose (Misc Panel) 269H 07/13/20 05:33: Nucleated Red Blood Cells % (auto) 0.0, Anion Gap 7L, Glomerular Filtration Rate 29.1L, Calcium Level 8.1L 07/13/20 07:53: Blood Gas Bicarbonate Standard 22.1, Arterial Blood pH 7.380, Arterial Blood Partial Pressure CO2 38.0, Arterial Blood Partial Pressure O2 70.4L, Arterial Blood Total CO2 23.1, Arterial Blood HCO3 22.0, Arterial Blood Base Excess - 2.8L, Arterial Blood Oxygen Saturation 93.9L 07/13/20 11:25: Bedside Glucose (Misc Panel) 249H CBC/BMP Laboratory Tests 07/13/20 05:33 Microbiology Microbiology 07/10/20 Acid Fast Stain, Received Pending 07/10/20 Mycobacterial Culture, Received Pending 07/10/20 Fungal Smear, Received Pending 07/10/20 Fungal Culture, Received Pending 07/10/20 Gram Stain - Final, Complete 07/10/20 Anaerobic Culture - Final, Complete 07/10/20 Body Fluid Culture - Final, Complete AURORA ALMEIDA 28, 2021 15:41
[2020-07-13 16:00] VITALS: BP 144/67
[2020-07-13] MEDS: ONDANSETRON 4MG/2ML VIAL IV PRN (16:43)
[2020-07-13 20:00] VITALS: BP 143/68
[2020-07-14] VITALS (7 sets, daily range): BP systolic 116–155; BP diastolic 55–72
[2020-07-14] MEDS: **hydrALAZINE** 10 MG TAB PO SCH ×4 (00:10→18:23)
[2020-07-14] MEDS: traMADol 50 MG TAB PO PRN ×2 (00:14→19:30)
[2020-07-14] MEDS: HEPARIN SOD (PORCINE) 5000UNITS/ML 1ML VIAL/SYRINGE SC SCH ×3 (06:12→21:15)
[2020-07-14] MEDS: LEVOTHYROXINE 25MCG TABLET (0.025MG) PO SCH (06:12)
[2020-07-14 06:22] LABS: HEMATOCRIT 28.7 % (36.0-47.0); HEMOGLOBIN 9.2 g/dl (12.0-15.5); MEAN CORPUSCULAR HEMOGLOBIN 30.8 pg (27.0-33.0); MEAN CORPUSCULAR HGB CONC 32.1 g/dl (32.0-36.5); PLATELET COUNT, AUTOMATED 443 10^3/uL (150-450); RED BLOOD COUNT 2.99 10^6/uL (4.00-5.40); WHITE BLOOD COUNT 8.6 10^3/uL (4.0-10.0)
[2020-07-14 06:46] LABS: CALCIUM LEVEL 8.1 MG/DL (8.8-10.2); CREATININE FOR GFR 1.92 MG/DL (0.55-1.30); GLOMERULAR FILTRATION RATE 27.4 (>39); POTASSIUM SERUM 4.8 MEQ/L (3.5-5.1)
[2020-07-14] MEDS: HumaLOG INSULIN (NovoLOG) PER UNIT SC SCH ×4 (07:30→21:16)
--- NOTE | 2020-07-14 07:55 | REP ---
INDICATION: pleural effusions/ hypoxemia. COMPARISON: Comparison portable chest x-ray July 13, 2020. TECHNIQUE: Portable upright AP chest radiograph. FINDINGS: EKG monitoring electrodes are visible. There are bilateral pleural effusions right larger than left. Today's views exposed at a somewhat better level of inspiration. Perihilar infiltrates persist bilaterally in the upper lobes. Increased markings are again seen in the right lower lobe. Interstitial markings remain diffusely prominent.. IMPRESSION: Findings essentially unchanged.. <Electronically signed by Donald Dunaway > 07/14/20 [id number]
--- NOTE | 2020-07-14 08:15 | CCN ---
Pulmonary/CRITICAL CARE Progress NOTE DATE: 07/14/2020 SUBJECTIVE: The patient is seen in the Progressive Care Unit. This is hospital day #7. She is complaining of nausea and admits to being less dyspneic today. She has some cough but minimal sputum production. OBJECTIVE: VITAL SIGNS: Temperature is 97, pulse rate is 54, respirations are 18, blood pressure is 116/58. INPUT AND OUTPUT: I and O's for the past 24 hours: 1240 in, 1350 out, since midnight 0 in, 175 out. GENERAL: She is ill-appearing and cachetic. HEENT: Oral mucosa is pink. NECK: Supple. Jugular veins remain distended. HEART: Heart sounds are regular. LUNGS: Breath sounds are diminished with dullness in the left base and basilar rales. ABDOMEN: Soft. DIAGNOSTIC STUDIES: Assessed and included her white cell count which is down to 8.6 today, hemoglobin is 9.2, hematocrit is 28.2, platelet count 443,000. Electrolytes: Her sodium is 137, potassium is 4.8, chloride is 103, CO2 25, BUN 61, creatinine 1.92. Glucose is 88. I have reviewed her chest x-ray image. A formal report is pending but there is slight improvement particularly on the right side. ASSESSMENT AND PLAN: 1. Pulmonary edema. Patient's saturations are acceptable at this point but she does require high flow nasal cannula. Her response to Lasix has been limited and I agree with increasing the dose. She may require a higher dose yet to establish adequate urine flow. 2. Breast cancer. As her respiratory status is unlikely to improve significantly in the short run, I would favor proceeding with biopsy as soon as reasonable. 3. Acute kidney injury. The numbers may improve with decreased intervascular volume. The patient's overall prognosis is poor given her metastatic malignancy. MTDD
[2020-07-14] MEDS: CYANOCOBALAMIN 500 MCG TAB PO SCH (08:27)
[2020-07-14] MEDS: guaiFENesin ER 600 MG TAB PO SCH ×2 (08:27→21:13)
[2020-07-14] MEDS: ASCORBIC ACID 500 MG TAB PO SCH (08:27)
[2020-07-14] MEDS: amLODIPine 5 MG TAB PO SCH (08:29)
[2020-07-14] MEDS: FUROSEMIDE 100MG/10ML VIAL (J1940) IV SCH ×3 (08:30→21:15)
[2020-07-14] MEDS ORDERED: SLF 3 ML SYR IV PRN (08:50)
[2020-07-14] MEDS: LEVEMIR (INSULIN DETEMIR) 1 UNITS/0.01ML SC SCH ×2 (09:00→21:16)
[2020-07-14] MEDS: SLF 3 ML SYR IV SCH ×2 (15:20→21:15)
--- NOTE | 2020-07-14 18:47 | IPNPDOC ---
Subjective Date Seen The patient was seen on 07/14/20. Subjective Chief Complaint/HPI Mrs. Sheikh is a 70 year old female with DM, hypertension, and renal artery stenosis who presents with bilateral lower extremity edema and found to have hypertensive urgency, acute kidney injury, CHF, and troponin increase. She was then subsequently found to have multiple lytic lesions (skull, thoracic cavity, lumbar spine), right breast cancer, and bilateral pleural effusions. Overnight, oxygen requirements remained at max Vapotherm. Patient feels fatigue, but is able to speak in full sentences. Her urine output was not great, and her diuretics were increased. Otherwise, son was present this afternoon. Readdressed her code status with son present. Explained that if we did chest compressions, that it would break bones and quality of life would be worse. She spoke with her son and decided on full code. Objective Physical Examination General Exam: Positive: Alert, Cooperative Eye Exam: Positive: EOMI; Negative: Sclera icteric Neck Exam: Positive: Supple Chest Exam: Positive: Diminished Heart Exam: Positive: Rate Normal, Regular Rhythm Abdomen Exam: Positive: Normal bowel sounds, Soft; Negative: Tenderness Extremity Exam: Positive: Edema (bilateral pitting edema) Neuro Exam: Positive: Cranial Nerves 3-12 NL Psych Exam: Positive: Mental status NL, Anxiety Assessment /Plan Assessment Mrs. Sheikh is a 69 year old female with DM, hypertension, and renal artery stenosis who presents with bilateral lower extremity edema and found to have hypertensive urgency, acute kidney injury, CHF, and troponin increase. She was then subsequently found to have multiple lytic lesions (skull, thoracic cavity, lumbar spine), right breast cancer, and bilateral pleural effusions. Blood pressure is better controlled. Continue with amlodipine and hydralazine q6h. When renal function improve, switch from hydralazine to lisinopril for right renal artery stenosis. Otherwise, troponin increase may be secondary to hypertensive urgency. The persistent elevation would be secondary to her ELVIA. ELVIA may be secondary to a combination of hypertensive urgency and NSAID use. Will provide supportive care, hold nephrotoxic agents, and provide blood pressure control. Otherwise, she had MRI brain for weakness in the legs. Demonstrated lytic lesions concerning for metastasis vs multiple myeloma. She does have a right breast lesion that appears shrunken and stiff. I reached out to oncology. Patient has cicatrized breast cancer. Recommending biopsy from Breast Surgery. Patient was found to have bilateral pulmonary edema. Drained 1.9L of transudative fluid on 07/10/2020. She subsequently developed re-expansion pulmonary edema requiring 15L. Consulted pulmonology, recommendations a ppreicated. 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 Hernandez catheter placed and she output 800mL. This may have worsened her respiratory status. Will observe her on high flow and see how she does. If she doesnt't improve, may need to start considering CPAP. On 07/14/2020, she has remained stable. Still requiring max Vapotherm. Will increase diuretics from 40mg IV TID to 60mg IV TID. Plan/VTE VTE Prophylaxis Ordered?: Yes Plan 1. Acute renal failure -Secondary to hypertensive urgency and NSAID use -Supportive care and blood pressure control -Lisinopril held 2. Lytic bone lesions -Most likely 2/2 to right breast cancer -Consulted oncology, recommendations appreciated -Breast surgery consulted, pending breast biopsy 3. Acute decompensated HFpEF -EF 50 to 55% with grade 1 diastolic [place] [address] -Bilateral pulmonary effusions were transudative. Drained 1.9L from right chest cavity on 07/10/2020 -Increased IV Lasix 60mg TID. Fluid restriction 1500mL. 2gm sodium diet -May need to consider CPAP if respiratory status does not improve 4. Acute re-expansion pulmonary edema -Complication from right thoracentesis on 07/10/2020 -Supplemental oxygen and supportive care -If oxygen requirements continue to rise, may need CPAP -Pulmonary consulted, recommendations appreciated 5. Acute urinary retention -On 07/13/2020, Hernandez placed and removed 800mL -Since on high frequently Lasix, will continue Hernandez for accurate I/O's -She may have not been able to appropriately diuresis causing worsening respiratory status. on evening 07/12 and morning 07/13 6. Right renal artery stenosis -Seen on retroperitoneal US on 10/26/2016 -When renal function improves, restart lisinopril 7. Hypertensive urgency -End organ damage demonstrated by ELVIA and troponin rise -Blood pressure controlled with Amlodipine and hydralazine. Consider switching hydralazine to lisinopril when renal function improves 8. Elevated troponin -Trending troponin. Now starting to decline -EF 50 to 55% with grade 1 diastolic dysfunction 9. Gait instability -Patient has history of gait instability. PCP had ordered MRI of LS spine, but patient refused -Patient agreeable to MRI of LS spine and MRI brain -No acute stroke. No significant stenosis. 10. Diabetes mellitus -Hold metformin -Sliding scale insulin while inpatient -Carbohydrate consistent diet 11. Hypothyroidism -Continue levothyroxine 12. DVT ppx -Heparin subQ due to ELVIA Disposition: Pending renal improvement, breast biopsy, and improvement in respiratory status. May need CPAP if respiratory status worsens. VS, I&O, 24H, Fishbone Vital Signs/I&O Vital Signs Date Time Temp Pulse Resp B/P (MAP) Pulse Ox O2 Delivery O2 Flow Rate FiO2 07/14/20 18:23 150/68 07/14/20 16:00 96.7 53 16 94 HVNI-Vapotherm 40.0 100 I&O- Last 24 Hours up to 6 AM 07/14/20 06:00 Intake Total 1020 ml Output Total 1625 ml Balance -605 ml Laboratory Data 24H LABS Laboratory Tests 2 07/13/20 21:06: Bedside Glucose (Misc Panel) 108 07/14/20 05:41: Nucleated Red Blood Cells % (auto) 0.0, Anion Gap 9, Glomerular Filtration Rate 27.4L, Calcium Level 8.1L 07/14/20 12:03: Bedside Glucose (Misc Panel) 127H 07/14/20 18:02: Bedside Glucose (Misc Panel) 339H CBC/BMP Laboratory Tests 07/14/20 05:41 Microbiology Microbiology 07/10/20 Acid Fast Stain, Received Pending 07/10/20 Mycobacterial Culture, Received Pending 07/10/20 Fungal Smear, Received Pending 07/10/20 Fungal Culture, Received Pending 07/10/20 Gram Stain - Final, Complete 07/10/20 Anaerobic Culture - Final, Complete 07/10/20 Body Fluid Culture - Final, Complete AURORA ALMEIDA DO Jul 14, 2020 18:47
[2020-07-15] VITALS (7 sets, daily range): BP systolic 138–165; BP diastolic 63–77
[2020-07-15] MEDS: **hydrALAZINE** 10 MG TAB PO SCH ×4 (00:35→18:29)
[2020-07-15] MEDS: traMADol 50 MG TAB PO PRN ×2 (01:44→21:14)
[2020-07-15] MEDS: LEVOTHYROXINE 25MCG TABLET (0.025MG) PO SCH (05:48)
[2020-07-15] MEDS: HEPARIN SOD (PORCINE) 5000UNITS/ML 1ML VIAL/SYRINGE SC SCH (05:48)
[2020-07-15] MEDS: FUROSEMIDE 100MG/10ML VIAL (J1940) IV SCH ×3 (05:49→21:14)
[2020-07-15] MEDS: SLF 3 ML SYR IV SCH ×3 (05:49→21:14)
[2020-07-15 05:56] LABS: HEMATOCRIT 28.6 % (36.0-47.0); HEMOGLOBIN 9.2 g/dl (12.0-15.5); MEAN CORPUSCULAR HEMOGLOBIN 29.9 pg (27.0-33.0); MEAN CORPUSCULAR HGB CONC 32.2 g/dl (32.0-36.5); MEAN CORPUSCULAR VOLUME 92.9 fl (80.0-96.0); PLATELET COUNT, AUTOMATED 484 10^3/uL (150-450); RED BLOOD COUNT 3.08 10^6/uL (4.00-5.40); WHITE BLOOD COUNT 8.3 10^3/uL (4.0-10.0)
[2020-07-15 06:24] LABS: CALCIUM LEVEL 7.9 MG/DL (8.8-10.2); CREATININE FOR GFR 1.95 MG/DL (0.55-1.30); GLOMERULAR FILTRATION RATE 26.9 (>39); POTASSIUM SERUM 4.8 MEQ/L (3.5-5.1)
[2020-07-15] MEDS: HumaLOG INSULIN (NovoLOG) PER UNIT SC SCH ×4 (08:00→21:00)
[2020-07-15] MEDS: CYANOCOBALAMIN 500 MCG TAB PO SCH (09:00)
[2020-07-15] MEDS: LEVEMIR (INSULIN DETEMIR) 1 UNITS/0.01ML SC SCH ×2 (09:00→21:15)
[2020-07-15] MEDS: ASCORBIC ACID 500 MG TAB PO SCH (09:00)
[2020-07-15] MEDS: guaiFENesin ER 600 MG TAB PO SCH ×2 (09:01→21:13)
[2020-07-15] MEDS: amLODIPine 5 MG TAB PO SCH (09:01)
[2020-07-15] MEDS: ONDANSETRON 4MG/2ML VIAL IV PRN ×2 (10:49→16:51)
[2020-07-15] MEDS: ENOXAPARIN 30MG/0.3ML SYRINGE (J1650 PER 10MG) SC SCH (14:07)
--- NOTE | 2020-07-15 14:07 | REP ---
INDICATION: Unilateral Swelling. COMPARISON: None. TECHNIQUE: Right upper extremity duplex venous sonography. FINDINGS: The internal jugular, axillary, brachial, basilic, and cephalic veins are anechoic and compressible in the right upper extremity. Color flow imaging is homogeneous. Spectral Doppler interrogation is unremarkable. There is no evidence of right upper extremity venous thrombosis. IMPRESSION: Negative right upper extremity duplex venous ultrasound. No evidence of venous thrombosis. <Electronically signed by Donald Dunaway > 07/15/20 [id number]
--- NOTE | 2020-07-15 14:07 | REP ---
INDICATION: Unilateral Swelling. COMPARISON: None. TECHNIQUE: Right lower extremity venous ultrasound with Doppler. FINDINGS: The deep veins are anechoic and fully compressible from the groin to the popliteal fossa in the right lower extremity. Color flow imaging is homogeneous. Spectral Doppler interrogation demonstrates intact respiratory variation in flow and normal manual augmentation of flow. There is no evidence of deep vein thrombosis. IMPRESSION: Negative right lower extremity duplex venous ultrasound. No evidence of deep vein thrombosis. <Electronically signed by Donald Dunaway > 07/15/20 [id number]
--- NOTE | 2020-07-15 14:10 | IPN ---
PULMONARY PROGRESS NOTE DATE: 07/15/2020 SUBJECTIVE: The patient is seen in the step down unit resting comfortably, no events through the night. She is quite ill-appearing and cachectic. OBJECTIVE: VITAL SIGNS: Temperature 97, pulse rate 60, respirations 19 and non-labored, blood pressure 149/67. INTAKE AND OUTPUT: For the past 24 hours, 1900 in and 1400 out. HEENT: Her mucosa are pink. Neck is supple. Jugular veins distended. HEART: Sounds are regular without appreciable murmur. LUNGS: Breath sounds diminished with scattered rales. ABDOMEN: Soft. EXTREMITIES: Edematous. DIAGNOSTIC STUDIES: White cell count 8.3, hemoglobin 9.2, hematocrit 28.6, platelet count 484,000. Sodium 137, potassium 4.8, chloride 103, CO2 27, BUN 68, creatinine 1.95. IMAGING: Chest imaging shows little change. I agree with radiologist interpretation. ASSESSMENT AND PLAN: 1. Hypoxemia: Saturations are a bit better with high flow oxygen. Continue with high flow oxygen. 2. Pulmonary edema: Some related to re-expansion after the thoracentesis, some is related to fluid overload. 3. Acute kidney injury: Patient may require a large dose of diuretics to establish adequate urine flow. 4. Breast cancer with diffuse metastasis: Awaiting surgery for biopsy. Patient's condition remains fair. Prognosis is poor.
--- NOTE | 2020-07-15 14:51 | IPNPDOC ---
Text Note Date of Service The patient was seen on 07/15/20. NOTE Subjective: No any acute events overnight. Patient continues to breathe via high flow oxygen Objective: GENERAL APPEARANCE: NAD HEENT: no scleral icterus, no JVD, EOMI CARDIOVASCULAR: S1S2 LUNGS: Diminished lung sounds bilaterally ABDOMEN: soft & not tender w palpitation MUSCULOSKELETAL: +1 pitting edema of left lower extremity, +2 pitting edema of right lower extremity, edematous right arm INTEGUMENT: no generalized pallor NEUROLOGICAL: cranial nerve function from 2-12 intact intact, follows commands, speech not dysarthric Assessment and plan Patient is a 70 year old female with DM, hypertension, and renal artery stenosis who presents with bilateral lower extremity edema and found to have hypertensive urgency, acute kidney injury, CHF, and troponin increase. She was then subsequently found to have multiple lytic lesions (skull, thoracic cavity, lumbar spine), right breast cancer, and bilateral pleural effusions. Acute hypoxemic respiratory failure Secondary to pleural effusion secondary to diastolic CHF exacerbation Echo showed EF 50 to 55% with grade 1 [place] [address] Continue Lasix IV Continue high flow oxygen Acute re-expansion pulmonary edema Complication from right thoracentesis on 07/10/2020. Pleural fluid is transudate Continue diuresis with Lasix IV Acute diastolic CHF I's and O's, fluid restriction Continue diuresis with Lasix IV Acute kidney injury Stable continue to monitor Type 2 diabetes I increased the dose of detemir to 7 units twice a day Insulin sliding scale Diabetes diet Breast cancer stage IV Await surgery for biopsy Acute urinary retention -On 07/13/2020, Hernandez placed and removed 800mL -will continue Hernandez for accurate I/O's Right renal artery stenosis -Seen on retroperitoneal US on 10/26/2016 Hypertensive urgency Resolved Elevated troponin Most likely demand ischemia Troponin trended down Gait instability Patient has history of gait instability. MRI spine showed There is diffuse heterogeneous signal intensity of the visualized bone marrow of the lumbar, lower thoracic, and upper sacral spine. This is concerning for metastatic disease. Myeloma is within the differential. Degenerative changes are noted at multiple lumbar and lower thoracic levels, as described above. No significant spinal canal stenosis at any lumbar level. There is no bone marrow compression according to MRI PT/OT Hypothyroidism Continue levothyroxine Right leg swelling/right arm swelling Doppler ultrasound negative for DVT DVT ppx Lovenox 30 mg subcutaneously VS,Fishbone, I+O VS, Fishbone, I+O Laboratory Tests 07/15/20 05:39 Vital Signs Date Time Temp Pulse Resp B/P (MAP) Pulse Ox O2 Delivery O2 Flow Rate FiO2 07/15/20 13:15 139/70 07/15/20 12:00 97.6 81 19 96 HVNI-Vapotherm 40.0 100 I&O- Last 24 Hours up to 6 AM 07/15/20 06:00 Intake Total 990 ml Output Total 1525 ml Balance -535 ml SB NICE DO Jul 15, 2020 14:51
[2020-07-15] MEDS ORDERED: SODIUM BICARBONATE 4.2% INJ 10 ML SYRINGE XX STA (16:32)
[2020-07-15] MEDS ORDERED: LIDOCAINE 1% MDV 20ML VIAL SC ONE (16:35)
[2020-07-15] MEDS ORDERED: SODIUM BICARBONATE XX STA (16:42)
[2020-07-15] MEDS ORDERED: **SFHN** SODIUM BICARBONATE 8.4% 50MEQ 50ML VIAL XX STA (16:45)
[2020-07-15] MEDS ORDERED: SODIUM BICARBONATE 8.4% INJ 50MEQ 50 ML VIAL XX STA (16:47)
--- NOTE | 2020-07-15 17:06 | IPNPDOC ---
Subjective Date Seen The patient was seen on 07/15/20. Subjective Chief Complaint/HPI This is a 70-year-old elderly lady w PMHX of hypertension, diabetes, renovascular disease, renal artery stenosis (diagnosed 2017 by ultrasound), who presents to [facility] ER w/ the chief complaint of bilateral lower extremity edema 1 week, which has progressively got worse in the past few days. Patient is a very poor historian and is not compliant with medications. Breast surgery was consulted for biopsy of the right breast mass with suspicious skin changes which was noted on the exam. Patient states that she has had right breast mass for 5 years and she did not seek treatment. On diagnostic imaging there were lytic bone lesions noted. CT chest also shows right breast mass extending from skin to pec muscle. After thoracentesis done 07/10/20 patient become hypoxic and her 02 requirements significantly increased - she was on 15L 02 post procedure. This has increased to 40L 02 now. Initially the biopsy was held due to high 02 requirements, however, hospitalist service requested today that the biopsy is done with the current 02 requirements. Objective Physical Examination Other physical findings Examination GENERAL APPEARANCE: alert and oriented LUNGS: on40L 02, saturating at 94% HEART: no tachycardia ABDOMEN: nondistended EXTREMITIES:no gross deformity Assessment /Plan Assessment This is a 70-year-old elderly female with past medical history of hypertension, diabetes, renovascular disease, renal artery stenosis (diagnosed 2016 by ultrasound), who presents to [facility] ER w/ the chief complaint of bilateral lower extremity edema 1 week, which has progressively got worse in the past couple of day. She was noted to have lytic bone lesions on diagnostic imaging concerning for metastatic disease. She was also noted to have abnormal right breast mass with suspicious skin changes. Currently experiencing pulmonary edema after thoracentesis, and requiring 40L 02. Thoracentesis cell block was negative for malignancy hence no ER/OK/HER 2 were able to be obtained PLAN: - will proceed with Right breast biopsy per hospitalist team request, patient is currently nauseated and wants to be treated for that prior to the biopsy, will reassess after premedications - risks and complications were explained to the patient, consent was signed by the patient and cosigned by the son - likely Stage 4 disease 2/2 presence of lytic lesions, MedOnc follows Plan/VTE VTE Prophylaxis Ordered?: Yes VS, I&O, 24H, Fishbone Vital Signs/I&O Vital Signs Date Time Temp Pulse Resp B/P (MAP) Pulse Ox O2 Delivery O2 Flow Rate FiO2 07/15/20 16:54 61 16 165/77 (106) 94 HVNI-Vapotherm 40.0 100 07/15/20 12:00 97.6 I&O- Last 24 Hours up to 6 AM 07/15/20 06:00 Intake Total 990 ml Output Total 1525 ml Balance -535 ml Laboratory Data 24H LABS Laboratory Tests 2 07/14/20 18:02: Bedside Glucose (Misc Panel) 339H 07/14/20 21:05: Bedside Glucose (Misc Panel) 267H 07/15/20 05:39: Nucleated Red Blood Cells % (auto) 0.0, Anion Gap 7L, Glomerular Filtration Rate 26.9L, Calcium Level 7.9L 07/15/20 12:08: Bedside Glucose (Misc Panel) 155H CBC/BMP Laboratory Tests 07/15/20 05:39 Microbiology Microbiology 07/10/20 Acid Fast Stain, Received Pending 07/10/20 Mycobacterial Culture, Received Pending 07/10/20 Fungal Smear, Received Pending 07/10/20 Fungal Culture, Received Pending 07/10/20 Gram Stain - Final, Complete 07/10/20 Anaerobic Culture - Final, Complete 07/10/20 Body Fluid Culture - Final, Complete POORNIMA GUY DO Jul 15, 2020 17:03
[2020-07-16] VITALS (7 sets, daily range): BP systolic 120–161; BP diastolic 57–72
[2020-07-16] MEDS: **hydrALAZINE** 10 MG TAB PO SCH ×4 (00:54→17:28)
[2020-07-16] MEDS: traMADol 50 MG TAB PO PRN ×2 (03:42→22:58)
[2020-07-16 06:20] LABS: HEMATOCRIT 30.3 % (36.0-47.0); HEMOGLOBIN 9.6 g/dl (12.0-15.5); MEAN CORPUSCULAR HEMOGLOBIN 29.8 pg (27.0-33.0); MEAN CORPUSCULAR HGB CONC 31.7 g/dl (32.0-36.5); MEAN CORPUSCULAR VOLUME 94.1 fl (80.0-96.0); PLATELET COUNT, AUTOMATED 457 10^3/uL (150-450); RED BLOOD COUNT 3.22 10^6/uL (4.00-5.40); WHITE BLOOD COUNT 8.1 10^3/uL (4.0-10.0)
[2020-07-16] MEDS: SLF 3 ML SYR IV SCH ×3 (06:27→22:40)
[2020-07-16] MEDS: LEVOTHYROXINE 25MCG TABLET (0.025MG) PO SCH (06:27)
[2020-07-16] MEDS: FUROSEMIDE 100MG/10ML VIAL (J1940) IV SCH ×3 (06:27→22:40)
[2020-07-16 06:41] LABS: CALCIUM LEVEL 8.4 MG/DL (8.8-10.2); CREATININE FOR GFR 1.64 MG/DL (0.55-1.30); GLOMERULAR FILTRATION RATE 32.9 (>39); POTASSIUM SERUM 3.9 MEQ/L (3.5-5.1)
[2020-07-16] MEDS: HumaLOG INSULIN (NovoLOG) PER UNIT SC SCH ×4 (07:30→20:30)
--- NOTE | 2020-07-16 08:45 | REP ---
INDICATION: plueral effusion. COMPARISON: AP upright 07/14/2010; AP semi-erect 07/13/2020, 07/12/2020. TECHNIQUE: AP semi-erect FINDINGS: Extensive bilateral effusions and bilateral lower lobe and perihilar infiltrates extending into the upper lobes. When compared to the previous semi-erect chest on 07/13/2020, there are more extensive left perihilar and upper lobe infiltrates and increasing effusions. Some fluid tracking into the right minor fissure. Heart size cannot be judged due to extensive effusions and infiltrates. No other change. IMPRESSION: 1. Worsening airspace disease perihilar and upper lobes with more change on the left compared to the prior studies and with increasing effusions. <Electronically signed by Allan Tam > 07/16/20 0815
[2020-07-16] MEDS: amLODIPine 5 MG TAB PO SCH (09:12)
[2020-07-16] MEDS: guaiFENesin ER 600 MG TAB PO SCH ×2 (09:12→20:36)
[2020-07-16] MEDS: ASCORBIC ACID 500 MG TAB PO SCH (09:12)
[2020-07-16] MEDS: CYANOCOBALAMIN 500 MCG TAB PO SCH (09:12)
[2020-07-16] MEDS: LEVEMIR (INSULIN DETEMIR) 1 UNITS/0.01ML SC SCH ×2 (09:13→20:36)
--- NOTE | 2020-07-16 12:51 | ROOPDOC ---
[facility] Report Of Operation Report of Operation DATE OF PROCEDURE: 07/15/20 DIAGNOSIS: right breast mass with suspicious skin changes PROCEDURE: right breast punch biopsy SURGEON: Poornima Guy BLOOD LOSS: minimal COMPLICATIONS: none Lidocaine 1% LOT [id number] Expiration 07/2023 Sodium bicarbonate 8.4% LOT [id number] Expiration 02/2022 4 mm punch biopsy instrument was used. Informed consent was obtained. The most common risk and possible complications including bleeding, hematoma, bruising, infection, injury to surrounding structures were explained to the patient and she expressed understanding. Patient was positioned on the bed in the supine position. Appropriate time out was done stating patients name, date of , and the procedure to be performed. The right breast was prepped and draped in the usual fashion. Plain Lidocaine 1% and 8.4% sodium bicarbonate 10:1 mix was used to anesthetize the skin at the biopsy site. 4 mm punch biopsy device was used to take a sample at the site of breast mass with overlying skin changes. Specimen was placed in formaldehyde, labeled with appropriate biopsy site and patients name, and sent to pathology for evaluation. The skin defect was closed with chromic suture. Steri strips were placed over the site at the end of the procedure. Postprocedural dressing was placed. Patient tolerated procedure well. Discharge instructions were discussed with the patient and she expressed understanding. POORNIMA GUY DO Jul 16, 2020 12:51
[2020-07-16] MEDS: ENOXAPARIN 30MG/0.3ML SYRINGE (J1650 PER 10MG) SC SCH (13:41)
--- NOTE | 2020-07-16 15:08 | IPNPDOC ---
Text Note Date of Service The patient was seen on 07/16/20. NOTE Subjective: Patient stated that she is doing better today. Yesterday biopsy was done, she tolerates procedure well Objective: GENERAL APPEARANCE: NAD HEENT: no scleral icterus, no JVD, EOMI CARDIOVASCULAR: S1S2 LUNGS: Diminished lung sounds bilaterally ABDOMEN: soft & not tender w palpitation MUSCULOSKELETAL: +1 pitting edema of left lower extremity, +2 pitting edema of right lower extremity, edematous right arm INTEGUMENT: no generalized pallor NEUROLOGICAL: cranial nerve function from 2-12 intact intact, follows commands, speech not dysarthric Assessment and plan Patient is a 70 year old female with DM, hypertension, and renal artery stenosis who presents with bilateral lower extremity edema and found to have hypertensive urgency, acute kidney injury, CHF, and troponin increase. She was then subsequently found to have multiple lytic lesions (skull, thoracic cavity, lumbar spine), right breast cancer, and bilateral pleural effusions. Acute hypoxemic respiratory failure Secondary to pleural effusion secondary to diastolic CHF exacerbation superimposed with possible malignant effusion Echo showed EF 50 to 55% with grade 1 [place] [address] Continue Lasix IV Continue high flow oxygen Will repeat BNP today Chest x-ray showed Worsening airspace disease perihilar and upper lobes with more change on the left Acute re-expansion pulmonary edema Complication from right thoracentesis on 07/10/2020. Pleural fluid is transudate Continue diuresis with Lasix IV Acute diastolic CHF Echo showed Normal LV size with mild left ventricular hypertrophy (LVH), septal wall motion abnormality related to LBBB and overall left ventricular ejection fraction (LVEF) estimated at 50% to 55%. Grade 1 diastolic dysfunction I's and O's, fluid restriction Continue diuresis with Lasix IV Acute kidney injury Stable continue to monitor Type 2 diabetes detemir to 7 units twice a day Insulin sliding scale Diabetes diet Breast cancer stage IV Await pathology report after biopsy Acute urinary retention -On 07/13/2020, Hernandez placed and removed 800mL -will continue Hernandez for accurate I/O's Right renal artery stenosis -Seen on retroperitoneal US on 10/26/2016 Hypertensive urgency Resolved Elevated troponin Most likely demand ischemia Troponin trended down Gait instability Patient has history of gait instability. MRI spine showed There is diffuse heterogeneous signal intensity of the visualized bone marrow of the lumbar, lower thoracic, and upper sacral spine. This is concerning for metastatic disease. Myeloma is within the differential. Degenerative changes are noted at multiple lumbar and lower thoracic levels, as described above. No significant spinal canal stenosis at any lumbar level. There is no bone marrow compression according to MRI PT/OT Hypothyroidism Continue levothyroxine Right leg swelling/right arm swelling Doppler ultrasound negative for DVT DVT ppx Lovenox 30 mg subcutaneously VS,Fishbone, I+O VS, Fishbone, I+O Laboratory Tests 07/16/20 05:45 Vital Signs Date Time Temp Pulse Resp B/P (MAP) Pulse Ox O2 Delivery O2 Flow Rate FiO2 07/16/20 12:00 97.0 63 24 161/72 (101) 98 HVNI-Vapotherm 40.0 100 I&O- Last 24 Hours up to 6 AM 07/16/20 06:00 Intake Total 1615 ml Output Total 2625 ml Balance -1010 ml SB NICE DO Jul 16, 2020 15:08
[2020-07-16] MEDS ORDERED: FLEET ENEMA PR ONE (16:50)
[2020-07-17] VITALS (7 sets, daily range): BP systolic 131–157; BP diastolic 60–68
[2020-07-17] MEDS: **hydrALAZINE** 10 MG TAB PO SCH ×4 (00:20→18:24)
[2020-07-17] MEDS: FUROSEMIDE 100MG/10ML VIAL (J1940) IV SCH ×3 (05:43→20:46)
[2020-07-17] MEDS: LEVOTHYROXINE 25MCG TABLET (0.025MG) PO SCH (05:44)
[2020-07-17] MEDS: SLF 3 ML SYR IV SCH ×3 (05:45→20:47)
[2020-07-17] MEDS: traMADol 50 MG TAB PO PRN ×2 (05:45→20:46)
[2020-07-17 06:04] LABS: BASO % 0.3 % (0.0-1.0); EOS # 0.2 10^3/uL (0.0-0.5); EOS % 1.9 % (0.0-3.0); HEMATOCRIT 29.7 % (36.0-47.0); HEMOGLOBIN 9.7 g/dl (12.0-15.5); MEAN CORPUSCULAR HGB CONC 32.7 g/dl (32.0-36.5); MONO % 11.5 % (2.0-8.0); NEUTROPHILS # 6.6 10^3/uL (1.5-8.5); NEUTROPHILS % 74.8 % (36.0-66.0); PLATELET COUNT, AUTOMATED 446 10^3/uL (150-450); RED BLOOD COUNT 3.23 10^6/uL (4.00-5.40); WHITE BLOOD COUNT 8.9 10^3/uL (4.0-10.0)
[2020-07-17 06:31] LABS: ALBUMIN 1.3 GM/DL (3.2-5.2); BILIRUBIN,TOTAL 0.2 MG/DL (0.2-1.0); CALCIUM LEVEL 7.9 MG/DL (8.8-10.2); CREATININE FOR GFR 1.58 MG/DL (0.55-1.30); GLOMERULAR FILTRATION RATE 34.3 (>39); POTASSIUM SERUM 3.8 MEQ/L (3.5-5.1); TOTAL PROTEIN 5.1 GM/DL (6.4-8.2)
[2020-07-17] MEDS: HumaLOG INSULIN (NovoLOG) PER UNIT SC SCH ×4 (07:30→20:07)
[2020-07-17] MEDS: guaiFENesin ER 600 MG TAB PO SCH ×2 (09:57→20:46)
[2020-07-17] MEDS: LEVEMIR (INSULIN DETEMIR) 1 UNITS/0.01ML SC SCH ×2 (09:57→20:46)
[2020-07-17] MEDS: ASCORBIC ACID 500 MG TAB PO SCH (09:57)
[2020-07-17] MEDS: CYANOCOBALAMIN 500 MCG TAB PO SCH (09:57)
[2020-07-17] MEDS: amLODIPine 5 MG TAB PO SCH (09:57)
[2020-07-17] MEDS ORDERED: MAGNESIUM SULFATE GRANULES(EPSOM SALT) 1LB TOP PRN (10:25)
--- NOTE | 2020-07-17 14:26 | IPNPDOC ---
Text Note Date of Service The patient was seen on 07/17/20. NOTE Subjective: No any acute events overnight. Patient stated that she has more en ergy today. No fever or chills Objective: GENERAL APPEARANCE: NAD HEENT: no scleral icterus, no JVD, EOMI CARDIOVASCULAR: S1S2 LUNGS: Diminished lung sounds bilaterally ABDOMEN: soft & not tender w palpitation MUSCULOSKELETAL: +1 pitting edema of left lower extremity, +2 pitting edema of right lower extremity, edematous right arm INTEGUMENT: no generalized pallor NEUROLOGICAL: cranial nerve function from 2-12 intact intact, follows commands, speech not dysarthric Assessment and plan Patient is a 70 year old female with DM, hypertension, and renal artery stenosis who presents with bilateral lower extremity edema and found to have hypertensive urgency, acute kidney injury, CHF, and troponin increase. She was then subsequently found to have multiple lytic lesions (skull, thoracic cavity, grupo mbar spine), right breast cancer, and bilateral pleural effusions. Acute hypoxemic respiratory failure Secondary to pleural effusion secondary to diastolic CHF exacerbation superimposed with possible malignant effusion Echo showed EF 50 to 55% with grade 1 [place] [address] Continue Lasix IV Continue high flow oxygen BNP from 07/16/20 94395 Acute re-expansion pulmonary edema Complication from right thoracentesis on 07/10/2020. Pleural fluid is transudate Continue diuresis with Lasix IV Acute diastolic CHF Echo showed Normal LV size with mild left ventricular hypertrophy (LVH), septal wall motion abnormality related to LBBB and overall left ventricular ejection fraction (LVEF) estimated at 50% to 55%. Grade 1 diastolic dysfunction I's and O's, fluid restriction Continue diuresis with Lasix IV Acute kidney injury Stable continue to monitor Type 2 diabetes detemir to 7 units twice a day Insulin sliding scale Diabetes diet Breast cancer stage IV Await pathology report after biopsy Acute urinary retention -On 07/13/2020, Hernandez placed and removed 800mL -will continue Hernandez for accurate I/O's Right renal artery stenosis -Seen on retroperitoneal US on 10/26/2016 Hypertensive urgency Resolved Elevated troponin Most likely demand ischemia Troponin trended down Gait instability Patient has history of gait instability. MRI spine showed There is diffuse heterogeneous signal intensity of the visualized bone marrow of the lumbar, lower thoracic, and upper sacral spine. This is concerning for metastatic disease. Myeloma is within the differential. Degenerative changes are noted at multiple lumbar and lower thoracic levels, as described above. No significant spinal canal stenosis at any lumbar level. There is no bone marrow compression according to MRI PT/OT Hypothyroidism Continue levothyroxine Right leg swelling/right arm swelling Doppler ultrasound negative for DVT DVT ppx Lovenox 30 mg subcutaneously VS,Fishbone, I+O VS, Fishbone, I+O Laboratory Tests 07/17/20 05:27 Vital Signs Date Time Temp Pulse Resp B/P (MAP) Pulse Ox O2 Delivery O2 Flow Rate FiO2 07/17/20 12:26 157/68 07/17/20 12:15 93 HVNI-Vapotherm 10.0 85 07/17/20 12:00 98.2 67 14 I&O- Last 24 Hours up to 6 AM 07/17/20 06:00 Intake Total 2200 ml Output Total 1850 ml Balance 350 ml SB NICE DO Jul 17, 2020 14:26
[2020-07-17] MEDS: ENOXAPARIN 30MG/0.3ML SYRINGE (J1650 PER 10MG) SC SCH (14:55)
[2020-07-18] VITALS (7 sets, daily range): BP systolic 137–152; BP diastolic 64–70
[2020-07-18] MEDS: **hydrALAZINE** 10 MG TAB PO SCH ×4 (01:20→18:20)
[2020-07-18] MEDS: FUROSEMIDE 100MG/10ML VIAL (J1940) IV SCH ×3 (05:23→21:29)
[2020-07-18] MEDS: LEVOTHYROXINE 25MCG TABLET (0.025MG) PO SCH (05:23)
[2020-07-18] MEDS: SLF 3 ML SYR IV SCH ×2 (05:24→14:52)
[2020-07-18 05:39] LABS: BASO % 0.4 % (0.0-1.0); EOS # 0.2 10^3/uL (0.0-0.5); EOS % 1.8 % (0.0-3.0); HEMATOCRIT 27.8 % (36.0-47.0); LYMPH # 1.1 10^3/uL (1.5-5.0); LYMPH % 11.5 % (24.0-44.0); MEAN CORPUSCULAR HEMOGLOBIN 29.7 pg (27.0-33.0); MEAN CORPUSCULAR HGB CONC 32.4 g/dl (32.0-36.5); MEAN CORPUSCULAR VOLUME 91.7 fl (80.0-96.0); MONO # 0.9 10^3/uL (0.0-0.8); MONO % 9.6 % (2.0-8.0); NEUTROPHILS # 7.1 10^3/uL (1.5-8.5); NEUTROPHILS % 76.3 % (36.0-66.0); PLATELET COUNT, AUTOMATED 478 10^3/uL (150-450); RED BLOOD COUNT 3.03 10^6/uL (4.00-5.40); WHITE BLOOD COUNT 9.3 10^3/uL (4.0-10.0)
[2020-07-18 06:14] LABS: ALBUMIN 1.3 GM/DL (3.2-5.2); BILIRUBIN,TOTAL 0.2 MG/DL (0.2-1.0); CALCIUM LEVEL 7.8 MG/DL (8.8-10.2); CREATININE FOR GFR 1.43 MG/DL (0.55-1.30); GLOMERULAR FILTRATION RATE 38.5 (>39); MAGNESIUM LEVEL 2.1 MG/DL (1.8-2.4); POTASSIUM SERUM 3.9 MEQ/L (3.5-5.1); TOTAL PROTEIN 4.2 GM/DL (6.4-8.2)
[2020-07-18] MEDS: HumaLOG INSULIN (NovoLOG) PER UNIT SC SCH ×4 (07:30→21:00)
[2020-07-18 09:43] LABS: ABG HCO3 29.6 MEQ/L (22.0-26.0); ABG O2 SATURATION 96.4 % (95.0-99.0); ABG PARTIAL PRESSURE CO2 43.5 mmHg (35.0-45.0); ABG PARTIAL PRESSURE O2 88.4 mmHg (75.0-100.0); ABG TOTAL CO2 30.9 MEQ/L (23.0-31.0)
[2020-07-18] MEDS: LEVEMIR (INSULIN DETEMIR) 1 UNITS/0.01ML SC SCH ×2 (10:11→21:15)
[2020-07-18] MEDS: amLODIPine 5 MG TAB PO SCH (10:12)
[2020-07-18] MEDS: CYANOCOBALAMIN 500 MCG TAB PO SCH (10:12)
[2020-07-18] MEDS: guaiFENesin ER 600 MG TAB PO SCH ×2 (10:12→21:31)
[2020-07-18] MEDS: IRON POLYSAC (NIFEREX) 150 MG CAP PO SCH ×2 (10:12→21:29)
[2020-07-18] MEDS: ASCORBIC ACID 500 MG TAB PO SCH (10:12)
[2020-07-18] MEDS: ENOXAPARIN 30MG/0.3ML SYRINGE (J1650 PER 10MG) SC SCH (14:51)
--- NOTE | 2020-07-18 15:15 | REP ---
INDICATION: acute respiratory failure. COMPARISON: CT 07/11/2019; portable chest 07/16/2020, 07/14/2020, 07/10/2020 TECHNIQUE: Noncontrast scanning through the chest FINDINGS: As on yesterday's radiograph the effusions are larger than on the prior CT 07/10/2020, now involving over half of the lung volume on each side. Compressive atelectatic changes and scattered infiltrates along with interstitial edema or infiltrates are noted and have increased since the prior CT as noted on yesterday's radiograph. There is no midline shift. There is no pneumothorax. Heart is enlarged with left atrial and ventricular enlargement. I do not see any definite pericardial effusion anteriorly. It is difficult to exclude posteriorly. Scattered atherosclerotic calcifications in the aorta without aneurysm. Few small prevascular space nodes are seen. Hilar difficult to evaluate in the absence of contrast and with adjacent pleural fluid infiltrates. The diffuse lytic and blastic metastatic disease seen throughout the spine, sternum, manubrium, ribs, scapulae and clavicles again noted and unchanged. Some pill fragments are suggested in the gastric contents in the fundus. Visualized portion of the upper abdomen unchanged. IMPRESSION: 1. Enlarging pleural effusions and increasing compressive atelectasis, infiltrates and interstitial edema. 2. No cardiomegaly left atrial and ventricular enlargement. 3. Diffuse blastic and lytic metastatic disease as noted previously. <Electronically signed by Allan Tam > 07/18/20 [id number]
--- NOTE | 2020-07-18 15:34 | IPNPDOC ---
Text Note Date of Service The patient was seen on 07/18/20. NOTE Subjective: No any acute events overnight. Patient's oxygen requirements nicole nues to be high, she is on the 30 L Vapotherm Objective: GENERAL APPEARANCE: NAD HEENT: no scleral icterus, no JVD, EOMI CARDIOVASCULAR: S1S2 LUNGS: Diminished lung sounds bilaterally ABDOMEN: soft & not tender w palpitation MUSCULOSKELETAL: +1 pitting edema of left lower extremity, +2 pitting edema of right lower extremity, edematous right arm INTEGUMENT: no generalized pallor NEUROLOGICAL: cranial nerve function from 2-12 intact intact, follows commands, speech not dysarthric Assessment and plan Patient is a 70 year old female with DM, hypertension, and renal artery stenosis who presents with bilateral lower extremity edema and found to have hypertensive urgency, acute kidney injury, CHF, and troponin increase. She was then subsequently found to have multiple lytic lesions (skull, thoracic cavity, lumbar spine), right breast cancer, and bilateral pleural effusions. Acute hypoxemic respiratory failure Secondary to pleural effusion secondary to diastolic CHF exacerbation superimpos ed with possible malignant effusion Echo showed EF 50 to 55% with grade 1 [place] [address] Continue Lasix IV Continue high flow oxygen BNP from 07/16/20 82178 Patient' requirements 30 L Vapotherm FiO2 100% Chest x-ray showed Enlarging pleural effusions and increasing compressive atelectasis, infiltrates and interstitial edema Will proceed with thoracocentesis. I talked to Dr. Henson, he recommended to aspirate no more than 200cc of fluid in one time in order to prevent acute reexpansion of pulmonary edema Acute re-expansion pulmonary edema Complication from right thoracentesis on 07/10/2020. Pleural fluid is transudate Continue diuresis with Lasix IV Acute diastolic CHF Echo showed Normal LV size with mild left ventricular hypertrophy (LVH), septal wall motion abnormality related to LBBB and overall left ventricular ejection fraction (LVEF) estimated at 50% to 55%. Grade 1 diastolic dysfunction I's and O's, fluid restriction Acute kidney injury Stable continue to monitor Type 2 diabetes detemir to 7 units twice a day Insulin sliding scale Diabetes diet Breast cancer stage IV pathology report shows breast carcinoma Appreciate/agree with oncologist report Acute urinary retention -On 07/13/2020, Hernandez placed and removed 800mL -will continue Henrandez for accurate I/O's Right renal artery stenosis -Seen on retroperitoneal US on 10/26/2016 Hypertensive urgency Resolved Elevated troponin Most likely demand ischemia Troponin trended down Gait instability Patient has history of gait instability. MRI spine showed There is diffuse heterogeneous signal intensity of the visualized bone marrow of the lumbar, lower thoracic, and upper sacral spine. This is concerning for metastatic disease. Myeloma is within the differential. Degenerative changes are noted at multiple lumbar and lower thoracic levels, as described above. No significant spinal canal stenosis at any lumbar level. There is no bone marrow compression according to MRI PT/OT Hypothyroidism Continue levothyroxine Right leg swelling/right arm swelling Doppler ultrasound negative for DVT DVT ppx Lovenox 30 mg subcutaneously VS,Fishbone, I+O VS, Fishbone, I+O Laboratory Tests 07/18/20 05:16 Vital Signs Date Time Temp Pulse Resp B/P (MAP) Pulse Ox O2 Delivery O2 Flow Rate FiO2 07/18/20 14:50 152/67 07/18/20 12:00 98.9 70 16 97 HVNI-Vapotherm 30.0 100 I&O- Last 24 Hours up to 6 AM 07/18/20 06:00 Intake Total 1300 ml Output Total 3350 ml Balance -2050 ml SB NICE DO Jul 18, 2020 15:34
[2020-07-18] MEDS ORDERED: LIDOCAINE 1% MDV 20ML VIAL As Ordered ONE (15:59)
[2020-07-18 17:35] LABS: PH BODY FLUID 7.694 UNITS (NOT ESTABLISHED); SOURCE, BODY FLUID pH PLEURAL
--- NOTE | 2020-07-18 17:39 | REP ---
INDICATION: POST LEFT THORA, 2 VIEW. COMPARISON: 07/16/2020. TECHNIQUE: Frontal and lateral chest. FINDINGS: Pigtail drainage catheter is seen in the posteroinferior left pleural space. There is no pneumothorax. Bilateral infiltrates and effusions are again noted, with slight improvement since the prior study.. IMPRESSION: Left pleural drainage catheter seen posteriorly and inferiorly left hemithorax. Bilateral infiltrates and effusions slightly improved with no pneumothorax. <Electronically signed by Stephane Vargas > 07/18/20 [id number]
[2020-07-18 17:49] LABS: APPEARANCE, BODY FLUID CLEAR (CLEAR); PLEURAL FL COLOR PALE YELLOW (COLORLESS); SOURCE, BODY FLUID PLEURAL
--- NOTE | 2020-07-18 18:04 | REP ---
INDICATION: PLEURAL EFFUSION. COMPARISON: None. TECHNIQUE: The procedure was performed under the direct supervision of Dr. Vargas. The risks and benefits of the procedure were explained to the patient and informed consent was obtained. The left pleural effusion was localized using ultrasound guidance. The skin was prepped and draped in a sterile fashion. 1% lidocaine was used as a local anesthetic. Using ultrasound guidance a 10 [place] skater APDL catheter was inserted using trocar technique. 200 cc of pale yellow fluid was withdrawn and sent to the lab for analysis. The catheter was affixed to the skin and a sterile dressing was applied. The catheter was connected to a pleura vac. The patient tolerated the procedure well and there were no immediate complications. FINDINGS: None IMPRESSION: Ultrasound-guided left thoracentesis with catheter placement. <Electronically signed by Eulogio Alonzo > 07/18/20 [id number] <Electronically signed by Stephane Vargas > 07/18/20 [id number]
[2020-07-18 18:22] LABS: AMYLASE, BODY FLUID 14 U/L (NOT ESTABLISHED); CHOLESTEROL, BODY FLUID < 50 MG/DL (NOT ESTABLISHED); LDH, BODY FLUID 85 U/L (NOT ESTABLISHED); SOURCE, BODY FLUID AMYLASE PLEURAL; SOURCE, BODY FLUID CHOL PLEURAL; SOURCE, BODY FLUID GLUCOSE PLEURAL; SOURCE, BODY FLUID LDH PLEURAL; SOURCE, BODY FLUID TRIG PLEURAL; TRIGLYCERIDE, BODY FLUID 4 MG/DL (NOT ESTABLISHED)
[2020-07-18 18:44] LABS: SOURCE, BODY FLUID ALBUMIN PLEURAL; SOURCE, BODY FLUID TOT PROTEIN PLEURAL; TOTAL PROTEIN, BODY FLUID 1.5 G/DL (NOT ESTABLISHED)
[2020-07-18] MEDS: traMADol 50 MG TAB PO PRN (21:31)
[2020-07-19] VITALS (10 sets, daily range): BP systolic 118–150; BP diastolic 58–83
[2020-07-19] MEDS: SLF 3 ML SYR IV SCH ×4 (00:22→21:45)
[2020-07-19] MEDS: **hydrALAZINE** 10 MG TAB PO SCH ×4 (00:22→18:50)
[2020-07-19] MEDS: traMADol 50 MG TAB PO PRN (01:58)
[2020-07-19] MEDS: LEVALBUTEROL 1.25 MG/0.5 ML CONCENTRATE NEB NEB SCH ×4 (02:18→20:50)
[2020-07-19] MEDS: MIRALAX *UNIT DOSE* 17GM PACKET PO PRN (04:01)
[2020-07-19] MEDS: LEVOTHYROXINE 25MCG TABLET (0.025MG) PO SCH (06:44)
[2020-07-19] MEDS: FUROSEMIDE 100MG/10ML VIAL (J1940) IV SCH ×3 (06:45→23:09)
[2020-07-19 06:47] LABS: BASO # 0.1 10^3/uL (0.0-0.2); BASO % 0.6 % (0.0-1.0); EOS # 0.1 10^3/uL (0.0-0.5); EOS % 1.1 % (0.0-3.0); HEMATOCRIT 27.5 % (36.0-47.0); HEMOGLOBIN 8.9 g/dl (12.0-15.5); MEAN CORPUSCULAR HEMOGLOBIN 30.2 pg (27.0-33.0); MEAN CORPUSCULAR HGB CONC 32.4 g/dl (32.0-36.5); MEAN CORPUSCULAR VOLUME 93.2 fl (80.0-96.0); MONO # 0.6 10^3/uL (0.0-0.8); MONO % 7.3 % (2.0-8.0); NEUTROPHILS % 79.4 % (36.0-66.0); PLATELET COUNT, AUTOMATED 475 10^3/uL (150-450); RED BLOOD COUNT 2.95 10^6/uL (4.00-5.40); WHITE BLOOD COUNT 8.8 10^3/uL (4.0-10.0)
[2020-07-19 07:05] LABS: ALBUMIN 1.3 GM/DL (3.2-5.2); BILIRUBIN,TOTAL 0.2 MG/DL (0.2-1.0); CALCIUM LEVEL 7.9 MG/DL (8.8-10.2); CREATININE FOR GFR 1.49 MG/DL (0.55-1.30); GLOMERULAR FILTRATION RATE 36.7 (>39); POTASSIUM SERUM 3.9 MEQ/L (3.5-5.1); TOTAL PROTEIN 4.3 GM/DL (6.4-8.2)
[2020-07-19] MEDS: HumaLOG INSULIN (NovoLOG) PER UNIT SC SCH ×4 (07:30→21:00)
--- NOTE | 2020-07-19 08:09 | REP ---
INDICATION: pleural effusios, CHF. COMPARISON: AP and lateral views of the chest dated 07/18/2020. TECHNIQUE: Upright PA and lateral chest. FINDINGS: There is a pigtail pleural drainage catheter posteriorly on the left, unchanged. There are large bilateral pleural effusions, not significantly changed. There is no pneumothorax. There is compression atelectasis of the lung bilaterally adjacent to the pleural effusions, unchanged. Cardiac size is normal. IMPRESSION: There is no significant interval change. <Electronically signed by Stephane Valentino > 07/19/20 0806
[2020-07-19] MEDS: guaiFENesin ER 600 MG TAB PO SCH ×2 (09:48→21:40)
[2020-07-19] MEDS: CYANOCOBALAMIN 500 MCG TAB PO SCH (09:48)
[2020-07-19] MEDS: IRON POLYSAC (NIFEREX) 150 MG CAP PO SCH ×2 (09:48→21:40)
[2020-07-19] MEDS: ASCORBIC ACID 500 MG TAB PO SCH (09:49)
--- NOTE | 2020-07-19 11:24 | IPNPDOC ---
Text Note Date of Service The patient was seen on 07/19/20. NOTE Subjective: No any acute events overnight. Pleuro-vac was placed yesterday. Shakeel miller stated that her breathing slightly improved today Objective: GENERAL APPEARANCE: NAD HEENT: no scleral icterus, no JVD, EOMI CARDIOVASCULAR: S1S2 LUNGS: Diminished lung sounds bilaterally ABDOMEN: soft & not tender w palpitation MUSCULOSKELETAL: +1 pitting edema of left lower extremity, +2 pitting edema of right lower extremity, edematous right arm INTEGUMENT: no generalized pallor NEUROLOGICAL: cranial nerve function from 2-12 intact intact, follows commands, speech not dysarthric Assessment and plan Patient is a 70 year old female with DM, hypertension, and renal artery stenosis who presents with bilateral lower extremity edema and found to have hypertensive urgency, acute kidney injury, CHF, and troponin increase. She was then subsequently found to have multiple lytic lesions (skull, thoracic cavity, lumbar spine), right breast cancer, and bilateral pleural effusions. Acute hypoxemic respiratory failure Secondary to pleural effusion secondary to diastolic CHF exacerbation superimposed with possible malignant effusion Echo showed EF 50 to 55% with grade 1 [place] [address] Continue Lasix IV Continue high flow oxygen BNP from 07/16/20 04234 Patient' requirements 25 L Vapotherm FiO2 100% CT showed Enlarging pleural effusions and increasing compressive atelectasis, infiltrates and interstitial edema on 07/18/20 Thoracocentesis was done yesterday, pleural fluid transudate. Pleura VAC was placed yesterday. I talked to Dr. Henson, he recommended to aspirate no more than 200cc of fluid in one time in order to prevent acute reexpansion of pulmonary edema Will drain 200 mL today Patient has negative balance 1.8 L for past 24 hours Acute re-expansion pulmonary edema Complication from right thoracentesis on 07/10/2020. Pleural fluid is transudate Continue diuresis with Lasix IV Acute diastolic CHF Echo showed Normal LV size with mild left ventricular hypertrophy (LVH), septal wall motion abnormality related to LBBB and overall left ventricular ejection fraction (LVEF) estimated at 50% to 55%. Grade 1 diastolic dysfunction I's and O's, fluid restriction Acute kidney injury Slightly worsening today, creatinine 1.49 I decreased the dose of Lasix to 40 mg IV twice a day continue to monitor Type 2 diabetes detemir to 7 units twice a day Insulin sliding scale Diabetes diet Breast cancer stage IV pathology report shows breast carcinoma Follow-up with oncologist Acute urinary retention -On 07/13/2020, Hernandez placed and removed 800mL -will continue Hernandez for accurate I/O's Right renal artery stenosis -Seen on retroperitoneal US on 10/26/2016 Hypertension I increased her dose of Norvasc 10 mg Hypertensive urgency Resolved Elevated troponin Most likely demand ischemia Troponin trended down Gait instability Patient has history of gait instability. MRI spine showed There is diffuse heterogeneous signal intensity of the visualized bone marrow of the lumbar, lower thoracic, and upper sacral spine. This is concerning for metastatic disease. Myeloma is within the differential. Degenerative changes are noted at multiple lumbar and lower thoracic levels, as described above. No significant spinal canal stenosis at any lumbar level. There is no bone marrow compression according to MRI PT/OT Hypothyroidism Continue levothyroxine Right leg swelling/right arm swelling Doppler ultrasound negative for DVT DVT ppx Lovenox 30 mg subcutaneously VS,Fishbone, I+O VS, Fishbone, I+O Laboratory Tests 07/19/20 06:04 Vital Signs Date Time Temp Pulse Resp B/P (MAP) Pulse Ox O2 Delivery O2 Flow Rate FiO2 07/19/20 09:49 70 150/69 07/19/20 07:15 91 HVNI-Vapotherm 25.0 90 07/19/20 07:07 97.9 18 I&O- Last 24 Hours up to 6 AM 07/19/20 06:00 Intake Total 940 ml Output Total 2475 ml Balance -1535 ml SB NICE DO Jul 19, 2020 11:24
[2020-07-19] MEDS: metOLazone 5 MG TAB PO SCH (11:40)
--- NOTE | 2020-07-19 13:23 | CR ---
CONSULTATION DATE: 07/19/2020 Patient seen at the request of the hospitalist service for management of bilateral pleural effusions after placement of pigtail catheter yesterday. HISTORY OF PRESENT ILLNESS: Patient is a 70-year-old white female who was admitted to the hospital on 07/08/2020 with bilateral leg weakness and swelling. Patient is a very poor historian. Nonetheless, at the time she did not complain of chest pain, nor did she perceive herself to be short of breath. There was no cough, no fever, chills, or sweats, and no dysphagia. Her main complaint was leg swelling and extreme weakness, for which she called the ambulance to bring her to the hospital. She was found to have bilateral pleural effusions, for which the right side was drained acutely. The chest x-ray on day 1 after the drainage showed what was likely compression or postexpansion pulmonary edema, which increased over the next few days. She is now on high-flow oxygen therapy. Diuresis was started with a regimen of Lasix, at first administered at 40 intravenous (IV) twice a day and then increased to 60 every 8 hours. Today it was decreased to 40 twice a day IV. She was also noted to be hypothyroid with a thyroid stimulating hormone (TSH) of 7, for which she was started on Synthroid 25 mg. Her pleural effusion has reaccumulated, and a pigtail catheter was placed yesterday with limited drainage of only 200 mL. The chest x-ray has improved overnight, as noted below, on the left side. MEDICAL HISTORY: 1. Hypertension. 2. 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 3. Renal vascular disease by ultrasound diagnosed in 2017. 4. Breast mass times 5 years on the right. 5. Diabetes. HOME MEDICATIONS: - aspirin 81 mg daily - ascorbic acid 500 mg daily - vitamin D 10 mcg daily - vitamin B12 at 500 mcg daily - magnesium 250 mg every night - metformin 1000 mg daily - naproxen (Aleve) 220 mg as needed for pain - potassium gluconate 595 mg every night - vitamin B one tablet daily Salient hospital medications now include: - insulin per sliding scale - aspirin 81 daily - hydralazine 10 mg every 6 hours - Lovenox prophylactically 30 daily - amlodipine 10 mg daily - Synthroid 25 mg daily - The above Lasix dosing. PAST SURGICAL HISTORY: 1. Arthroscopic knee surgery in 2014. 2. Laparoscopy for endometriosis in 1997. 3. Appendectomy in 1962. 4. Tonsillotomy in 1962. HABITS: Denies smoking, alcohol intake, or illicit drugs. TRAVEL HISTORY: Not obtained. OCCUPATIONAL HISTORY: Not obtained FAMILY HISTORY: Not pertinent to the acute situation. No other listed family history of breast cancer. REVIEW OF SYSTEMS: CONSTITUTIONAL: Without fever, sweats, or night sweats. EYES: Without diplopia or prior jaundice. PULMONARY: See history of present illness (HPI). CARDIAC: Had orthopnea at home a few days prior to admission. Denied paroxysmal nocturnal dyspnea. Noted peripheral edema. Denies prior myocardial infarction. GASTROINTESTINAL: Today complains of nausea but no vomiting and constipation. Denies abdominal pain. GENITOURINARY: Has the above renal vascular history and right kidney atrophy. NEUROLOGIC: Denies paresthesias, paralyses. PSYCHIATRIC: Not treated for pathological psychoses, depression, or anxieties. PHYSICAL EXAMINATION: Well-developed, lethargic, slow-speaking 70-year-old white female on high-flow oxygen nasal cannula. Vital signs: Temperature is 98.9, heart rate 70 in a sinus rhythm, respiratory rate 18 without the use of accessory muscles, who is 91% saturated on 25 liters nasal cannula VapoTherm and FiO2 of 90%, and whose blood pressure is 150/69. Eyes: Pupils equal, round, reactive to light. Extraocular movements intact. Sclerae are anicteric. Mouth shows her mucous membranes to be pink and moist. Lips and commissures without lesions. There is no thrush. Neck is supple. There is no jugular venous distention. No subcutaneous emphysema. Trachea is midline. There is no lymphadenopathy. Lungs show markedly decreased breath sounds on the right side with E-to-A egophony. She shows bronchial breath sounds on the left side. Percussion notes are both dull to percussion assisted up on the right side and a quarter of the way up on the left side. Cardiac exam is without murmurs, clicks, gallops, or rubs. I cannot feel her point of maximal impulse (PMI). S1 and S2 are normal. Chest wall shows a thickened skin with a breast mass, which looks to be fixed to the chest wall. It is affecting the nipple and deforming the nipple. Abdomen is soft and nontender. Bowel sounds are positive. There is no hepatomegaly. No costovertebral angle (CVA) tenderness. Extremities show 3+ pretibial edema on the right and 2+ on the left. There is no calf tenderness, no differential swelling of the upper extremities. Neurologic shows gross motor, gross sensation intact. Gait is not tested. Psychiatric shows her to be awake, somewhat somnolent, and show to speak. INVESTIGATIONS: Her white count presently is 8.8 with a hemoglobin and hematocrit 8.9 and 27.5, which looks to be stable over the last 5 days with a platelet count of 475 and stable. Differential shows 79% neutrophils, 11% lymphocytes, 7% monocytes. There are no immature forms or toxic granulations. Her electrolytes are normal with a BUN and creatinine of 48 and 1.49, which is improved from 1.64 on admission. Calcium is 7.9 with an albumin of 1.3. AST and ALT are normal. Her TSH was 7.5 on admission. Her initial chest x-ray done on July 08 portably showed bilateral pleural effusions with the right greater than the left. There is cephalization of vessels and what looked to be an infiltrative process, probably pulmonary edema in a butterfly fashion on the left side. After her thoracentesis of 1900 mL, the initial chest x-ray showed what looked to be residual compression, which progressed to postexpansion pulmonary edema. Her most recent CT scan done without contrast on July 18 again shows bilateral pleural effusions. Her breast mass extends down to the chest wall on the right side. She has bilateral lung compression bilaterally on either side in the lower lobes. I do not appreciate significant mediastinal lymphadenopathy. She does have some periaortic lymph nodes, but they are about 1 cm. Her right kidney does not appear on the abdominal portion of the chest CT. She has an enlarged right kidney. The adrenal gland on the left looks to have a normal configuration. I hardly appreciate the adrenal gland on the right. Cardiac size is on the large side. Her echocardiogram done on July 08 is reported back as having an ejection fraction of 50%-55% with tricuspid insufficiency and an enlarged inferior vena cava (IVC) with moderate pulmonary hypertension. The computer that I am sitting at cannot pull up the echo, so I cannot review it, and the maximum velocity across the tricuspid jet is not reported. Patient has been seen by Dr. Rodriguez, and a biopsy of the breast lesion has shown invasive carcinoma involving the skin. It looked to be a punch biopsy. Pleural fluid removed on July 10 at the thoracentesis did not show any malignant cells identified with reactive mesothelial cells noted. Pleural fluid analysis of thoracenteses done on July 10 and the limited drainage on July 18 both showed the pleural fluid to be transudative with respective lactic dehydrogenases (LDHs) of 69 and 85 with serum LDHs of 248 and 162, respectively. They were both hyperglycemic, corresponding to her diabetes and with cell counts of 180-386, predominantly mononuclear lymphocytic. IMPRESSION: 1. Congestive heart failure. 2. Pulmonary hypertension. 3. Bilateral pleural effusions. 4. Acute renal injury. 5. Hypothyroidism. 6. Hypoalbuminemia. 7. Invasive breast cancer. No evidence of metastatic disease yet. PLAN AND DISCUSSION: I think that her bilateral pleural effusions are cardiac in origin, and at this point not provably related to her breast cancer. It should be noted that on my physical examination there was no axillary lymphadenopathy or cervical lymphadenopathy. I do think that it is invasive into the chest wall, however. Nonetheless, even in light of an ejection fraction of 50%-55%, I think her pleural effusions are cardiac in origin. Her kidney injury is new, as her creatinine in 2019 was normal, even though she had right renal trauma as a child. She is hypoalbuminemic, and with her supposed renal artery stenosis her blood flow is reduced secondary to poor forward output and intravascular depletion. I will address her pleural effusions by increasing her Lasix back to 60 mg every 8 hours, adding a distal tubule thiazide, Zaroxolyn, and infusing albumin. I will also concomitantly increase her Synthroid to 75 mcg daily. We will monitor her chest x-rays every day. If the right pleural effusion does not improve, I will entertain placing another pigtail catheter and drain that very slowly, as the experience with rapid draining resulted in postexpansion pulmonary edema. The x-ray on the left side has improved, and I will open the pigtail catheter on the left.
[2020-07-19] MEDS: ENOXAPARIN 30MG/0.3ML SYRINGE (J1650 PER 10MG) SC SCH (14:20)
--- NOTE | 2020-07-19 15:50 | REP ---
INDICATION: Provider request. COMPARISON: Portable AP chest with the patient upright, 2 AP views TECHNIQUE: Upright PA and lateral chest performed earlier this morning. FINDINGS: The peak L drainage catheters again noted in the left pleural space. The left pleural effusion appears to have significantly decreased in size. The right pleural effusion is unchanged. There is a fracture posterolaterally in the right 7th rib. On review this is unchanged from 07/07/2020. There is interstitial coarsening. This appears to be a change from earlier today. IMPRESSION: The left pleural effusion appears to have significantly decreased in size. Right pleural effusion unchanged. Right 7th rib fracture as described. No pneumothorax. Interstitial coarsening as a change from the study earlier today. <Electronically signed by Stephane Valentino > 07/19/20 1957
[2020-07-19] MEDS ORDERED: FUROSEMIDE 40MG/4ML VIAL (J1940) IV SCH (17:00)
[2020-07-19] MEDS: LEVEMIR (INSULIN DETEMIR) 1 UNITS/0.01ML SC SCH ×2 (21:00→21:39)
[2020-07-19] MEDS: SENNA 8.6 MG TAB (SENOKOT) PO PRN (21:39)
[2020-07-19] MEDS: DOCUSATE SODIUM 100MG CAPSULE PO PRN (21:40)
[2020-07-20] VITALS (13 sets, daily range): BP systolic 115–140; BP diastolic 56–64
[2020-07-20] MEDS ORDERED: PERCOCET 5MG/325MG TAB PO PRN (00:50)
[2020-07-20] MEDS: **hydrALAZINE** 10 MG TAB PO SCH ×2 (01:11→06:13)
[2020-07-20] MEDS: LEVALBUTEROL 1.25 MG/0.5 ML CONCENTRATE NEB NEB SCH ×4 (01:26→20:04)
[2020-07-20] MEDS: NORCO, ANEXSIA 5/325MG TABLET (HYDROcodone/ACETAMINOPHEN) PO PRN ×3 (03:53→20:37)
[2020-07-20] MEDS: LEVOTHYROXINE 75MCG TABLET (0.075MG) PO SCH (06:13)
[2020-07-20] MEDS: MIRALAX *UNIT DOSE* 17GM PACKET PO PRN (06:14)
[2020-07-20 06:19] LABS: BASO # 0.1 10^3/uL (0.0-0.2); BASO % 0.7 % (0.0-1.0); EOS # 0.1 10^3/uL (0.0-0.5); EOS % 1.3 % (0.0-3.0); HEMATOCRIT 28.9 % (36.0-47.0); HEMOGLOBIN 9.3 g/dl (12.0-15.5); LYMPH # 0.9 10^3/uL (1.5-5.0); LYMPH % 10.2 % (24.0-44.0); MEAN CORPUSCULAR HEMOGLOBIN 29.4 pg (27.0-33.0); MEAN CORPUSCULAR HGB CONC 32.2 g/dl (32.0-36.5); MEAN CORPUSCULAR VOLUME 91.5 fl (80.0-96.0); MONO # 0.7 10^3/uL (0.0-0.8); MONO % 7.7 % (2.0-8.0); NEUTROPHILS % 79.8 % (36.0-66.0); PLATELET COUNT, AUTOMATED 514 10^3/uL (150-450); RED BLOOD COUNT 3.16 10^6/uL (4.00-5.40); WHITE BLOOD COUNT 8.7 10^3/uL (4.0-10.0)
[2020-07-20] MEDS: SLF 3 ML SYR IV SCH ×3 (06:22→20:37)
[2020-07-20] MEDS: FUROSEMIDE 100MG/10ML VIAL (J1940) IV SCH ×3 (06:22→22:10)
[2020-07-20 06:39] LABS: ALBUMIN 1.7 GM/DL (3.2-5.2); BILIRUBIN,TOTAL 0.2 MG/DL (0.2-1.0); CALCIUM LEVEL 7.9 MG/DL (8.8-10.2); CREATININE FOR GFR 1.53 MG/DL (0.55-1.30); GLOMERULAR FILTRATION RATE 35.6 (>39); POTASSIUM SERUM 3.6 MEQ/L (3.5-5.1); TOTAL PROTEIN 4.7 GM/DL (6.4-8.2)
[2020-07-20] MEDS: HumaLOG INSULIN (NovoLOG) PER UNIT SC SCH ×4 (07:30→20:49)
--- NOTE | 2020-07-20 08:23 | REP ---
INDICATION: pleural effusios, CHF. COMPARISON: 07/19/2020 TECHNIQUE: Upright PA and lateral chest. FINDINGS: There is a large right pleural effusion, unchanged. There is a moderate left pleural effusion, unchanged. There is a left pigtail pleural drainage catheter in the deep posterior sulcus, unchanged. The right 7th rib fracture is unchanged. The mild interstitial coarsening is unchanged. IMPRESSION: No significant interval change. <Electronically signed by Stephane Valentino > 07/20/20 0879
[2020-07-20] MEDS: LEVEMIR (INSULIN DETEMIR) 1 UNITS/0.01ML SC SCH ×2 (08:40→20:32)
[2020-07-20] MEDS: POTASSIUM CHLORIDE 10 MEQ SR TABLET PO SCH (08:48)
[2020-07-20] MEDS: metOLazone 5 MG TAB PO SCH (08:48)
[2020-07-20] MEDS: guaiFENesin ER 600 MG TAB PO SCH ×2 (08:48→20:32)
[2020-07-20] MEDS: CYANOCOBALAMIN 500 MCG TAB PO SCH (08:48)
[2020-07-20] MEDS: ASCORBIC ACID 500 MG TAB PO SCH (08:48)
[2020-07-20] MEDS: IRON POLYSAC (NIFEREX) 150 MG CAP PO SCH ×2 (08:48→20:32)
--- NOTE | 2020-07-20 10:07 | ECGEPIP ---
[facility] Test Date: 2020-07-20 Pat Name: HUI OHARA Department: Room: [place] [address] Gender: Female Um Nurse: GLO : 1950 Requested By: SB NICE Order Number: [id number] Reading MD: Dami Nava Measurements Intervals [place] Rate: 59 P: 57 TN: 188 QRS: 46 QRSD: 164 T: 9 QT: 526 QTc: 520 Interpretive Statements Sinus bradycardia Right bundle branch block Nonspecific ST-T wave abnormalities more notable from tracing done 07-08-20 Electronically Signed on 07-20-2020 10:07:09 EDT by Dami Nava
--- NOTE | 2020-07-20 11:21 | IPNPDOC ---
Text Note Date of Service The patient was seen on 07/20/20. NOTE Subjective: Patient complains of generalized weakness. She stated that she has a low energy today. Patient had urine output around 6 L for past 24 hours. Objective: GENERAL APPEARANCE: Ill looking female HEENT: no scleral icterus, no JVD, EOMI CARDIOVASCULAR: S1S2 LUNGS: Diminished lung sounds bilaterally, thoracocentesis tube to in place ABDOMEN: soft & not tender w palpitation MUSCULOSKELETAL: +1 pitting edema of left lower extremity, +2 pitting edema of right lower extremity, edematous right arm INTEGUMENT: no generalized pallor NEUROLOGICAL: cranial nerve function from 2-12 intact intact, follows commands, speech not dysarthric Assessment and plan Patient is a 70 year old female with DM, hypertension, and renal artery stenosis who presents with bilateral lower extremity edema and found to have hypertensive urgency, acute kidney injury, CHF, and troponin increase. She was then subsequently found to have multiple lytic lesions (skull, thoracic cavity, lumbar spine), right breast cancer, and bilateral pleural effusions. Acute hypoxemic respiratory failure Secondary to pleural effusion secondary to diastolic CHF exacerbation superimposed with possible malignant effusion Echo showed EF 50 to 55% with grade 1 [place] [address] Continue Lasix IV Continue high flow oxygen BNP from 07/16/20 73838 Patient' requirements 25 L Vapotherm FiO2 100% CT showed Enlarging pleural effusions and increasing compressive atelectasis, in filtrates and interstitial edema on 07/18/20 Thoracocentesis was done on 07/18/20 ,pleural fluid transudate. Pleura VAC was placed yesterday. I talked to Dr. Henson, he recommended to aspirate no more glo n 200cc of fluid in one time in order to prevent acute reexpansion of pulmonary edema Continue drain pleural fluid. Acute re-expansion pulmonary edema Complication from right thoracentesis on 07/10/2020. Pleural fluid is transudate Continue diuresis with Lasix IV. Yesterday, diuresis was intensified, metolazone was added. Acute diastolic CHF Echo showed Normal LV size with mild left ventricular hypertrophy (LVH), septal wall motion abnormality related to LBBB and overall left ventricular ejection fraction (LVEF) estimated at 50% to 55%. Grade 1 diastolic dysfunction I's and O's, fluid restriction Acute kidney injury Slightly worsening today, creatinine 1.5 continue to monitor Type 2 diabetes I decreased the dose of detemir to 5 units twice a day Insulin sliding scale Diabetes diet Breast cancer stage IV pathology report shows breast carcinoma Follow-up with oncologist Acute urinary retention -will continue Hernandez for accurate I/O's Right renal artery stenosis -Seen on retroperitoneal US on 10/26/2016 Hypertension Norvasc and hydralazine on hold due to intensive diuresis Hypertensive urgency Resolved Elevated troponin Most likely demand ischemia Troponin trended down Gait instability Patient has history of gait instability. MRI spine showed There is diffuse heterogeneous signal intensity of the visualized bone marrow of the lumbar, lower thoracic, and upper sacral spine. This is concerning for metastatic disease. Myeloma is within the differential. Degenerative changes are noted at multiple lumbar and lower thoracic levels, as described above. No significant spinal canal stenosis at any lumbar level. There is no bone marrow compression according to MRI PT/OT Hypothyroidism Continue levothyroxine Right leg swelling/right arm swelling Doppler ultrasound negative for DVT DVT ppx Lovenox 30 mg subcutaneously VS,Fishbone, I+O VS, Fishbone, I+O Laboratory Tests 07/20/20 05:48 Vital Signs Date Time Temp Pulse Resp B/P (MAP) Pulse Ox O2 Delivery O2 Flow Rate FiO2 07/20/20 08:54 50 140/64 07/20/20 07:50 98.3 22 91 HVNI-Vapotherm 25.0 85 I&O- Last 24 Hours up to 6 AM 07/20/20 06:00 Intake Total 1160.0 ml Output Total 4855 ml Balance -3695.0 ml SB NICE DO Jul 20, 2020 11:21
[2020-07-20 14:29] LABS: PHOSPHORUS LEVEL 4.6 MG/DL (2.5-4.9)
[2020-07-20] MEDS: ENOXAPARIN 30MG/0.3ML SYRINGE (J1650 PER 10MG) SC SCH (15:15)
[2020-07-21] VITALS (11 sets, daily range): BP systolic 114–149; BP diastolic 55–97
[2020-07-21] MEDS: LEVALBUTEROL 1.25 MG/0.5 ML CONCENTRATE NEB NEB SCH ×4 (01:59→19:37)
[2020-07-21] MEDS: NORCO, ANEXSIA 5/325MG TABLET (HYDROcodone/ACETAMINOPHEN) PO PRN ×2 (03:03→20:45)
[2020-07-21 05:39] LABS: BASO % 0.4 % (0.0-1.0); EOS # 0.2 10^3/uL (0.0-0.5); EOS % 2.5 % (0.0-3.0); HEMATOCRIT 25.7 % (36.0-47.0); HEMOGLOBIN 8.2 g/dl (12.0-15.5); LYMPH # 0.9 10^3/uL (1.5-5.0); LYMPH % 10.5 % (24.0-44.0); MEAN CORPUSCULAR HEMOGLOBIN 29.7 pg (27.0-33.0); MEAN CORPUSCULAR HGB CONC 31.9 g/dl (32.0-36.5); MEAN CORPUSCULAR VOLUME 93.1 fl (80.0-96.0); MONO # 0.8 10^3/uL (0.0-0.8); MONO % 9.4 % (2.0-8.0); NEUTROPHILS # 6.4 10^3/uL (1.5-8.5); NEUTROPHILS % 76.8 % (36.0-66.0); PLATELET COUNT, AUTOMATED 426 10^3/uL (150-450); RED BLOOD COUNT 2.76 10^6/uL (4.00-5.40); WHITE BLOOD COUNT 8.3 10^3/uL (4.0-10.0)
[2020-07-21 05:58] LABS: BILIRUBIN,TOTAL 0.2 MG/DL (0.2-1.0); CALCIUM LEVEL 7.5 MG/DL (8.8-10.2); CREATININE FOR GFR 1.64 MG/DL (0.55-1.30); GLOMERULAR FILTRATION RATE 32.9 (>39); MAGNESIUM LEVEL 2.2 MG/DL (1.8-2.4); POTASSIUM SERUM 3.7 MEQ/L (3.5-5.1); TOTAL PROTEIN 4.6 GM/DL (6.4-8.2)
[2020-07-21] MEDS: LEVOTHYROXINE 75MCG TABLET (0.075MG) PO SCH (06:01)
[2020-07-21] MEDS: FUROSEMIDE 100MG/10ML VIAL (J1940) IV SCH ×3 (06:01→20:46)
[2020-07-21] MEDS: SLF 3 ML SYR IV SCH ×3 (06:02→20:47)
[2020-07-21] MEDS: ASCORBIC ACID 500 MG TAB PO SCH (09:12)
[2020-07-21] MEDS: ONDANSETRON 4MG/2ML VIAL IV PRN (09:12)
[2020-07-21] MEDS: metOLazone 5 MG TAB PO SCH (09:12)
[2020-07-21] MEDS: guaiFENesin ER 600 MG TAB PO SCH ×2 (09:13→20:45)
[2020-07-21] MEDS: CYANOCOBALAMIN 500 MCG TAB PO SCH (09:13)
[2020-07-21] MEDS: POTASSIUM CHLORIDE 10 MEQ SR TABLET PO SCH (09:13)
[2020-07-21] MEDS: LEVEMIR (INSULIN DETEMIR) 1 UNITS/0.01ML SC SCH ×2 (09:14→20:46)
[2020-07-21] MEDS: HumaLOG INSULIN (NovoLOG) PER UNIT SC SCH ×4 (09:14→20:47)
[2020-07-21] MEDS: IRON POLYSAC (NIFEREX) 150 MG CAP PO SCH ×2 (09:14→20:45)
[2020-07-21] MEDS: LEVALBUTEROL 1.25 MG/0.5 ML CONCENTRATE NEB NEB PRN (10:05)
--- NOTE | 2020-07-21 10:26 | IPN ---
PROGRESS NOTE DATE: 07/20/2020 SUBJECTIVE: Ms. Sheikh is feeling a bit better today. She is a little bit more alert. She is sitting up comfortably at the side of the bed. Last night, she had increased pain at the catheter insertion site; for which I ordered both oxycodone and hydrocodone as needed. She has had a terrific diuresis. OBJECTIVE: VITAL SIGNS: Show a T-max of 98.9 with a heart rate that ranges between 50 and 66 in sinus rhythm. Respiratory rate of 14 to 22 without the use of accessory muscles who is 91% to 95% saturated now on 25 liters high flow cannula at an FiO2 of 85%. Her blood pressure is ranging between 122/57 to 140/64. INTAKE AND OUTPUT: Over the past 24 hours has been recorded as 1310 in and 4790 out for a negativity of 3480 mL. She put out 2 liters from the chest tube and 40 mL in the last 10 hours. Her weight is pending. RESPIRATORY: I hear some scattered crackles and rales in the left base. These are much less than they were yesterday. Her right side, however, shows a dull percussion note long-term up the chest with E:A egophony and severely decreased breath sounds in the right lower hemithorax. I hear no wheezes, rhonchi, or rales in the upper hemithorax. Percussion note is full to the diaphragm on the left. CARDIAC: Without murmurs, clicks, gallops, or rubs. I cannot feel her PMI. S1 and S2 are normal. ABDOMEN: Soft and nontender. Bowel sounds are positive. There is no hepatomegaly. No CVA tenderness. She had a bowel movement yesterday. EXTREMITIES: Now show no pretibial edema, which is a marked change from yesterday where they showed both 2+ and 3+ pretibial edema. No calf tenderness. SKIN: Her skin is dry below the knees. NECK: Supple. There is no jugular venous distention. No subcutaneous emphysema. Trachea is midline. MOUTH: Shows the mucous membranes to be pink and moist. Lips and commisures are without lesions and no thrush. EYES: Show her pupils equal and reactive. Extraocular muscles are intact. Sclerae nonicteric. NEUROLOGIC: Shows II through XII intact. Normal gross motor, gross sensation intact. Gait is not tested. PSYCHIATRIC: Shows her to be awake, alert, and oriented x3 with appropriate mood and affect and conversational. LABORATORY DATA: Her white count today is 8.6 with a hemoglobin and hematocrit of 9.3 and 28.9 up from 8.9 and 27.5 probably secondary to hemoconcentration. Platelet count is 514,000 and stable. Differential shows 79% neutrophils, 10% lymphocytes, and 7% monocytes. There are no immature forms and no toxic granulations. Her electrolytes today show a marginally high total CO2 of 33 with the remainder of electrolytes normal and her potassium 3.6. Creatinine is 1.53 up from 1.49 yesterday. BUN is 44 down from yesterday of 48. Glucose is 60. Calcium is 7.9 with an albumin of 1.7 up from 1.3 yesterday secondary to her albumin infusions. AST and ALT are normal at 13 and 16. IMAGING DATA: Her chest x-ray shows improvement in her left hemithorax, which is now almost completely drained. The lateral film on her chest x-ray shows less of a meniscus today than it did yesterday; however, the PA view still shows fairly dense opacity in the right lower hemithorax. I see no evidence of post expansion pulmonary edema, although there looks to be some post compressive changes in the lower lobe. IMPRESSION: 1. Congestive heart failure. 2. Pulmonary hypertension. 3. Bilateral pleural effusion left better now and drained. 4. Acute renal injury stable. 5. Hypothyroidism. 6. Hypoalbuminemia improving. 7. Invasive breast cancer with evidence of distant metastasis. PLAN AND DISCUSSION: I am gratified that her pretibial edema is now resolved. I do think that the lateral chest x-ray shows that the right pleural effusion is improving, but I do have a sinking feeling that we are going to have to drain that tomorrow with another pigtail catheter. I will probably remove the left pigtail catheter tomorrow additionally. I will continue her diuresis today and increase her albumin infusions to increase her colloid oncotic pressure to casey off post expansion pulmonary edema. I will discontinue some of her hypertensive medications at this point in time as I am volume depleting her. I will discontinue her Norvasc as she is a bit bradycardic and that is a calcium channel prasanna and Apresoline as her blood pressure is now relatively controlled, and I expect it to go down with more diuresis. I will ease up on the diuresis tomorrow. I will probably discontinue the albumin infusions additionally tomorrow. If the right pleural fluid does need draining, I will again send it off for all of the requisite studies including cytologies and cell blocks.
[2020-07-21] MEDS ORDERED: LIDOCAINE 1% MDV 20ML VIAL As Ordered ONE (10:28)
--- NOTE | 2020-07-21 10:40 | REP ---
INDICATION: pleural effusions, CHF. COMPARISON: PA and lateral chest 07/20/2020. TECHNIQUE: Upright PA and lateral chest. FINDINGS: There is a left pleural pigtail drainage catheter in the deep posterior sulcus of the left hemithorax, unchanged. There is a moderate left pleural effusion that has decreased in size. There is a large right pleural effusion, unchanged. Right 7th rib fracture, unchanged. IMPRESSION: The left pleural effusion appears to have decreased in size. The left pigtail pleural drainage catheter is unchanged. The large right pleural effusion is unchanged. Right 7th rib fracture, unchanged <Electronically signed by Stephane Valentino > 07/21/20 1039
--- NOTE | 2020-07-21 11:35 | IPNPDOC ---
Text Note Date of Service The patient was seen on 07/21/20. NOTE Subjective: No any acute events overnight, she complains of pain at the catheter insertion site and generalized weakness. No fever or chills overnight Objective: GENERAL APPEARANCE: Ill looking female HEENT: no scleral icterus, plus JVD, EOMI CARDIOVASCULAR: S1S2 LUNGS: Diminished lung sounds bilaterally, thoracocentesis tube to in place ABDOMEN: soft & not tender w palpitation MUSCULOSKELETAL: +1 pitting edema of left lower extremity, +1 pitting edema of right lower extremity, mildly edematous right arm INTEGUMENT: no generalized pallor NEUROLOGICAL: cranial nerve function from 2-12 intact intact, follows commands, speech not dysarthric Assessment and plan Patient is a 70 year old female with DM, hypertension, and renal artery stenosis who presents with bilateral lower extremity edema and found to have hypertensive urgency, acute kidney injury, CHF, and troponin increase. She was then subsequently found to have multiple lytic lesions (skull, thoracic cavity, l umbar spine), right breast cancer, and bilateral pleural effusions. Acute hypoxemic respiratory failure Secondary to pleural effusion secondary to diastolic CHF exacerbation superimposed with possible malignant effusion Echo showed EF 50 to 55% with grade 1 [place] [id number] Continue Lasix IV Continue high flow oxygen BNP from 07/16/20 31382 Patient' requirements 30 L Vapotherm FiO2 90% CT showed Enlarging pleural effusions and increasing compressive atelectasis, infiltrates and interstitial edema on 07/18/20 Thoracocentesis was done on 07/18/20 ,pleural fluid transudate. Pleura VAC was placed. I talked to Dr. Henson, he recommended to aspirate no more than 200cc of fluid in one time in order to prevent acute reexpansion of pulmonary edema On 07/18/20 pleural fluid positive for Staphylococcus capitis, most likely contamination. Patient does not have leukocytosis, afebrile. Second set of pleural fluid negative for culture Continue drain pleural fluid. Plan to put now pigtail catheter to drain right pleural effusion Pain management Acute re-expansion pulmonary edema Complication from right thoracentesis on 07/10/2020. Pleural fluid is transudate Continue diuresis with Lasix IV, diuresis was intensified, metolazone was added. Acute diastolic CHF Echo showed Normal LV size with mild left ventricular hypertrophy (LVH), septal wall motion abnormality related to LBBB and overall left ventricular ejection fraction (LVEF) estimated at 50% to 55%. Grade 1 diastolic dysfunction I's and O's, fluid restriction 2.7 liters urine output for past 24 hours Anemia of chronic diseases Hemoglobin dropped to 8.2 H&H every 6 hours Acute kidney injury Slightly worsening today, creatinine 1.64 continue to monitor Type 2 diabetes I decreased the dose of detemir to 5 units twice a day Glucose level under control Insulin sliding scale Diabetes diet Breast cancer stage IV pathology report shows breast carcinoma Follow-up with oncologist Acute urinary retention -will continue Hernandez for accurate I/O's Right renal artery stenosis -Seen on retroperitoneal US on 10/26/2016 Hypertension Norvasc and hydralazine on hold due to intensive diuresis. Blood pressure stable Hypertensive urgency Resolved Elevated troponin Most likely demand ischemia Troponin trended down Gait instability Patient has history of gait instability. MRI spine showed There is diffuse heterogeneous signal intensity of the visualized bone marrow of the lumbar, lower thoracic, and upper sacral spine. This is concerning for metastatic disease. Myeloma is within the differential. Degenerative changes are noted at multiple lumbar and lower thoracic levels, as described above. No significant spinal canal stenosis at any lumbar level. 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
--- NOTE | 2020-07-21 11:43 | REP ---
INDICATION: POST RIGHT PIGTAIL PLACEMENT, 2 VIEW. COMPARISON: 07/21/2020, 8:33 a.m. TECHNIQUE: Two views chest. FINDINGS: There is placement of a pigtail drainage catheter in the posteroinferior right hemithorax. Very small right pneumothorax is present. Right pleural effusion has mildly decreased. Parenchymal opacity inferiorly on the left is unchanged. The left pigtail drainage catheter is not visualized. IMPRESSION: Placement of pigtail drainage catheter in the posteroinferior right pleural space. Small pneumothorax with decreased amount of right pleural fluid. <Electronically signed by Stephane Vargas > 07/21/20 113
[2020-07-21 12:15] LABS: HEMATOCRIT 27.8 % (36.0-47.0); HEMOGLOBIN 8.9 g/dl (12.0-15.5)
[2020-07-21] MEDS: ACETAMINOPHEN TAB 650MG DOSE (2X325MG) PO PRN (12:21)
--- NOTE | 2020-07-21 12:30 | IPN ---
PROGRESS NOTE DATE: 07/21/2020 SUBJECTIVE: Mrs. Sheikh just got bag from having her pigtail catheter placed in her right side and her left side being removed. She was complaining bitterly of the pain from her left-sided catheter, which drained 350 mL yesterday. I think that the pain from her left side is emanating from the very low position of the catheter, probably causing diaphragmatic and chest wall irritation with each breath. That has now been removed. OBJECTIVE: VITAL SIGNS: Show a T-max of 98.9 with a heart rate that ranges between 62 and 66 in sinus rhythm. Respiratory rate of 16 to 22 without the use of accessory muscles who is 93% to 98% saturated now on 4 liters nasal cannula. Her blood pressure is ranging between 146/65 to 128/63. INTAKE AND OUTPUT: Over the past 24 hours has been recorded as 1410 in and 2094 out for a negativity of 684 mL. She put out 369 mL from her chest drain down from 2089 the day before. Weight today 62.6 kg compared to 69.7 kg two days ago. She has put out 1725 mL in urine. RESPIRATORY: Her left lung shows nearly normal vesicular sounds with a full percussion note to the diaphragm. Her right lung shows decreased breath sounds in the right lower hemithorax with a dull percussion note. 650 mL were removed before clamping the chest catheter. CARDIAC: Without murmurs, clicks, gallops, or rubs. I cannot feel her PMI. S1 and S2 are normal. ABDOMEN: Soft and nontender. Bowel sounds are positive. There is no hepatomegaly. No CVA tenderness. EXTREMITIES: Again show now 1+ pretibial edema when there was none yesterday. There is no differential swelling of the upper extremities. There is no calf tenderness. SKIN: Warm, dry, and perfused without cyanosis or mottling, including that of the nail beds and knees. NECK: Supple. There is no jugular venous distention. No subcutaneous emphysema. Trachea is midline. MOUTH: Shows her mucous membranes to be pink and moist. Lips and commisures are without lesions and no thrush. EYES: Show her pupils equal and reactive. Extraocular muscles are intact. Sclerae nonicteric. NEUROLOGIC: Shows II through XII intact. Normal gross motor, gross sensation intact. Gait is not tested. PSYCHIATRIC: Shows her to be awake, alert, and oriented x3 with appropriate mood and affect and conversational. It should be noted that she is a whole lot brighter today than she was two days ago when I first saw her. LABORATORY DATA: Her white count today is 8.3 with a hemoglobin and hematocrit of 8.2 and 25.7 down from 9.3 and 28.9. Her platelet count is 426,000 and differential shows 76% neutrophils, 10% lymphocytes, and 9% monocytes. There are no immature forms and no toxic granulations. Her electrolytes are normal with an elevated total CO2 of 36. BUN and creatinine are 48 and 1.64 respectively from 44 and 1.53. Glucose is 174 with a calcium of 7.5 and an albumin of 2.0 today. AST and ALT are normal. IMAGING DATA: Her chest x-ray shows an opacity in the right lower hemithorax, although it is less opaque today than it was yesterday. I nonetheless asked for interventional radiology to place a pigtail catheter, at the same time removing her left pigtail catheter. IMPRESSION: 1. Congestive heart failure. 2. Pulmonary hypertension. 3. Bilateral pleural effusions left now better with the right seemingly starting to resolve, but not fast enough. 4. Acute renal injury. 5. Hypothyroidism. 6. Hypoalbuminemia improving. 7. Invasive breast cancer with no evidence of distant metastasis. PLAN AND DISCUSSION: I am gratified that she is feeling better and that her chest catheter drainage is way down. Nonetheless, she has return of her pretibial edema and she certainly needs more diuresis. My intent this morning was to cut back on her diuresis and her albumin infusions; however, with the recurrence of her peripheral edema, I will continue her diuresis with Lasix q. 8 hours IV in addition to the Zaroxolyn 10 mg q. day. I will also continue the albumin infusions at q. 6 hours at 25%. I will keep her chest catheter clamped today and unclamp it tomorrow as she has been shown to have a propensity for post-expansion pulmonary edema. That may be a lot less now that she is fairly well diuresed. At some point in time, I will obtain another echocardiogram.
[2020-07-21 12:32] LABS: APPEARANCE, BODY FLUID CLEAR (CLEAR); PLEURAL FL COLOR PALE YELLOW (COLORLESS); SOURCE, BODY FLUID PLEURAL
[2020-07-21 12:41] LABS: PH BODY FLUID 7.705 UNITS (NOT ESTABLISHED); SOURCE, BODY FLUID pH PLEURAL
[2020-07-21 13:16] LABS: AMYLASE, BODY FLUID 15 U/L (NOT ESTABLISHED); CHOLESTEROL, BODY FLUID < 50 MG/DL (NOT ESTABLISHED); LDH, BODY FLUID 84 U/L (NOT ESTABLISHED); SOURCE, BODY FLUID ALBUMIN PLEURAL; SOURCE, BODY FLUID AMYLASE PLEURAL; SOURCE, BODY FLUID CHOL PLEURAL; SOURCE, BODY FLUID GLUCOSE PLEURAL; SOURCE, BODY FLUID LDH PLEURAL; SOURCE, BODY FLUID TOT PROTEIN PLEURAL; SOURCE, BODY FLUID TRIG PLEURAL; TOTAL PROTEIN, BODY FLUID 1.5 G/DL (NOT ESTABLISHED); TRIGLYCERIDE, BODY FLUID 3 MG/DL (NOT ESTABLISHED)
[2020-07-21] MEDS: ENOXAPARIN 30MG/0.3ML SYRINGE (J1650 PER 10MG) SC SCH (13:29)
[2020-07-21] MEDS ORDERED: FUROSEMIDE 100MG/10ML VIAL (J1940) IV SCH (17:00)
[2020-07-21 18:49] LABS: HEMATOCRIT 25.8 % (36.0-47.0); HEMOGLOBIN 8.3 g/dl (12.0-15.5)
--- NOTE | 2020-07-21 19:08 | REP ---
INDICATION: pigtail cath, to pleur-evac, drain 500 cc then clamp, see spcm. COMPARISON: None. TECHNIQUE: Procedure was performed under the direct supervision of Dr. Vargas. The risks and benefits of the procedure were explained to the patient and informed consent obtained. The right pleural effusion was localized using ultrasound guidance. The skin was prepped and draped in a sterile fashion. 1% lidocaine was used as anesthetic. Using ultrasound guidance a 10 [place]ic skater APDL catheter was inserted using trocar technique. 500 cc of pale yellow fluid was withdrawn with a sample sent to the lab for analysis. The catheter was affixed to the skin and a sterile dressing applied. The catheter was connected to a pleura The existing, left pleural drainage catheter was then removed without complication. FINDINGS: None IMPRESSION: Ultrasound-guided right thoracentesis with catheter placement. <Electronically signed by Eulogio Alonzo > 07/21/20 [id number] <Electronically signed by Stephane Vargas > 07/21/20 2017
[2020-07-22] VITALS (15 sets, daily range): BP systolic 108–149; BP diastolic 53–67; O2SAT 90–99
[2020-07-22 00:21] LABS: HEMATOCRIT 25.3 % (36.0-47.0); HEMOGLOBIN 8.2 g/dl (12.0-15.5)
[2020-07-22] MEDS: LEVALBUTEROL 1.25 MG/0.5 ML CONCENTRATE NEB NEB SCH ×4 (01:38→20:13)
[2020-07-22 06:04] LABS: BASO % 0.4 % (0.0-1.0); EOS # 0.3 10^3/uL (0.0-0.5); EOS % 3.1 % (0.0-3.0); HEMATOCRIT 26.5 % (36.0-47.0); HEMOGLOBIN 8.4 g/dl (12.0-15.5); LYMPH # 0.9 10^3/uL (1.5-5.0); LYMPH % 11.2 % (24.0-44.0); MEAN CORPUSCULAR HEMOGLOBIN 29.6 pg (27.0-33.0); MEAN CORPUSCULAR HGB CONC 31.7 g/dl (32.0-36.5); MEAN CORPUSCULAR VOLUME 93.3 fl (80.0-96.0); MONO # 0.8 10^3/uL (0.0-0.8); MONO % 9.6 % (2.0-8.0); NEUTROPHILS # 6.2 10^3/uL (1.5-8.5); NEUTROPHILS % 75.1 % (36.0-66.0); PLATELET COUNT, AUTOMATED 415 10^3/uL (150-450); RED BLOOD COUNT 2.84 10^6/uL (4.00-5.40); WHITE BLOOD COUNT 8.2 10^3/uL (4.0-10.0)
[2020-07-22 06:43] LABS: ALBUMIN 2.1 GM/DL (3.2-5.2); BILIRUBIN,TOTAL 0.1 MG/DL (0.2-1.0); CALCIUM LEVEL 7.9 MG/DL (8.8-10.2); CREATININE FOR GFR 1.83 MG/DL (0.55-1.30); MAGNESIUM LEVEL 2.2 MG/DL (1.8-2.4); POTASSIUM SERUM 3.6 MEQ/L (3.5-5.1); TOTAL PROTEIN 5.6 GM/DL (6.4-8.2)
[2020-07-22] MEDS: FUROSEMIDE 100MG/10ML VIAL (J1940) IV SCH ×3 (06:55→20:54)
[2020-07-22] MEDS: SLF 3 ML SYR IV SCH ×3 (06:55→20:56)
[2020-07-22] MEDS: LEVOTHYROXINE 75MCG TABLET (0.075MG) PO SCH (06:55)
--- NOTE | 2020-07-22 08:27 | REP ---
INDICATION: pleural effusions, CHF. COMPARISON: Plain film chest 09/04/2020 8:31 a.m. TECHNIQUE: PA and lateral chest FINDINGS: The previously noted pleural effusion on the left may be minimally increased when compared to yesterday's examination. The opacity and right pleural effusion appear improved, with increased aeration at the right base. The left pigtail catheter has been removed in the interval. The previously noted 7th rib fractures unchanged. IMPRESSION: 1. Interval removal of left pigtail pleural drainage catheter. 2. Slight increase in the pleural effusion and opacity at the left base. 3. Improvement of the right pleural effusion with increased aeration at the right base. 4. Right 7th rib fracture unchanged. <Electronically signed by Fausto Mckinnon > 07/22/20 [id number]
[2020-07-22] MEDS: LEVEMIR (INSULIN DETEMIR) 1 UNITS/0.01ML SC SCH ×2 (09:05→20:55)
[2020-07-22] MEDS: HumaLOG INSULIN (NovoLOG) PER UNIT SC SCH ×4 (09:05→20:55)
[2020-07-22] MEDS: metOLazone 5 MG TAB PO SCH (09:06)
[2020-07-22] MEDS: IRON POLYSAC (NIFEREX) 150 MG CAP PO SCH ×2 (09:06→20:55)
[2020-07-22] MEDS: guaiFENesin ER 600 MG TAB PO SCH ×2 (09:06→20:55)
[2020-07-22] MEDS: POTASSIUM CHLORIDE 10 MEQ SR TABLET PO SCH (09:06)
[2020-07-22] MEDS: CYANOCOBALAMIN 500 MCG TAB PO SCH (09:06)
[2020-07-22] MEDS: NORCO, ANEXSIA 5/325MG TABLET (HYDROcodone/ACETAMINOPHEN) PO PRN ×2 (09:08→20:55)
[2020-07-22] MEDS: ASCORBIC ACID 500 MG TAB PO SCH (09:08)
--- NOTE | 2020-07-22 12:26 | IPN ---
PROGRESS NOTE DATE: 07/22/2020 Ms. Sheikh had a pigtail catheter placed on the left side yesterday. I only had to drain 600 mL. She is feeling quite bright and talkative today. She does have some pain at the right chest tube catheter site. Her left prior chest tube catheter site is now pain free. I have opened up her right catheter. Her vital signs show a maximum temperature of 99.6 with a heart rate that ranges between 60-71 in a sinus rhythm, respiratory rate of 14-21 without the use of accessory muscles, who is 90%-100% saturated now on 1 liter nasal cannula. Her blood pressure is ranging between 111/62 to 149/66. Her intake and output for the past 24 hours has been recorded as 440 and 2990 out for a negative of 2500 mL. She weighs 61.2 kg today compared to 66.6 kg yesterday. She has put out 2250 mL in urine. PHYSICAL EXAMINATION: She has inspiratory crackles and rales at the right base. Percussion notes are now full to the diaphragm. Cardiac exam is without murmurs, clicks, gallops, or rubs. I cannot feel her point of maximal impulse (PMI). S1 and S2 are normal. Abdomen is soft and nontender. Bowel sounds are positive. There is no hepatomegaly. No costovertebral angle (CVA) tenderness. Extremities show 1-2+ pretibial edema on the left and 1+ on the right. There is no calf tenderness, no differential swelling of the upper extremities. Skin is warm, dry, and perfused without cyanosis or mottling, including that of the nailbeds and knees. Her skin is crinkling along her legs, indicating decreasing edema. Neck is supple. There is no jugular venous distention. No subcutaneous emphysema. Trachea is midline. Mouth shows the mucous membranes to be pink and moist. Lips and commissures without lesions. No thrush. Eyes show her pupils to be equal and reactive. Extraocular motion intact. Sclerae anicteric. Neurologic shows II-XII intact. Normal gross motor, gross sensation intact. Gait is not tested. Psychiatric shows her to be awake, alert, and oriented times three with appropriate mood and affect and conversational. Her white count today is 8.2 with a hemoglobin and hematocrit of 8.4 and 26.5, up from 8.2 and 25.3 secondary to hemoconcentration. Platelet count is 415 and stable, and differential shows 75% neutrophils, 11% lymphocytes, 9% monocytes. There are no immature forms or toxic granulations. Her electrolytes show a marginally high total CO2 of 35. She is slightly hypochloremic at 96 secondary to the Lasix diuresis. BUN and creatinine are 53 and 1.83, respectively, up from 48 and 1.64 yesterday. Glucose is 240 with a calcium of 7.9. AST and ALT are normal, and her albumin is now 2.1, up from 2.0 yesterday secondary to her albumin infusions. Her chest x-ray today shows improvement in the right fluid opacity. Left opacity is almost resolved. There is still some post expansion compression in the left lower lobe with atelectasis. Costophrenic angle looks fairly sharp with atelectatic changes at the very bottom of the angle. IMPRESSION: 1. Congestive heart failure. 2. Pulmonary hypertension. 3. Bilateral pleural effusions, improving. 4. Acute renal injury, continuing. 5. Hypothyroidism. 6. Hypoalbuminemia, improving with albumin infusions. 7. Invasive breast cancer with no evidence of distant metastasis as of yet. PLAN AND DISCUSSION: I will again continue her aggressive diuresis today. I will open her chest tube today. I have not seen a followup note from Dr. Avila. I would think that oncology ought to be involved in her care. I do not see an oncology consultation as of yet. She certainly has breast cancer down to the chest wall. It should be noted that her pleural fluid yesterday was still transudative with an lactic dehydrogenase (LDH) of 84 and a serum LDH of 156. It is a little bit greater than 0.6 but probably transudative nonetheless. Cell count shows predominant monocytes and lymphocytes. Pathology cell block did not show any malignancy.
[2020-07-22 12:42] LABS: HEMATOCRIT 28.6 % (36.0-47.0)
[2020-07-22] MEDS: ENOXAPARIN 30MG/0.3ML SYRINGE (J1650 PER 10MG) SC SCH (14:06)
[2020-07-22] MEDS: **hydrALAZINE** 10 MG TAB PO SCH ×2 (14:06→20:56)
[2020-07-22] MEDS: ACETAMINOPHEN TAB 650MG DOSE (2X325MG) PO PRN (14:08)
--- NOTE | 2020-07-22 14:30 | IPNPDOC ---
Text Note Date of Service The patient was seen on 07/22/20. NOTE Subjective: Patient stated that he feels better today, has more energy. Patient denied any fever or chills overnight. Patient developed a good urine output to 2250 mL for past 24 hours. Her oxygen requirements decreased to 1 L by nasal cannula Objective: GENERAL APPEARANCE: Ill looking female HEENT: no scleral icterus, plus JVD, EOMI CARDIOVASCULAR: S1S2 LUNGS: Diminished lung sounds bilaterally, thoracocentesis tube to in place ABDOMEN: soft & not tender w palpitation MUSCULOSKELETAL: +1 pitting edema of left lower extremity, +1 pitting edema of right lower extremity, mildly edematous right arm INTEGUMENT: no generalized pallor NEUROLOGICAL: cranial nerve function from 2-12 intact intact, follows commands, speech not dysarthric Assessment and plan Patient is a 70 year old female with DM, hypertension, and renal artery stenosis who presents with bilateral lower extremity edema and found to have hypertensive urgency, acute kidney injury, CHF, and troponin increase. She was then subsequently found to have multiple lytic lesions (skull, thoracic cavity, lumbar spine), right breast cancer, and bilateral pleural effusions. Acute hypoxemic respiratory failure Secondary to pleural effusion secondary to diastolic CHF exacerbation superimposed with possible malignant effusion Echo showed EF 50 to 55% with grade 1 [place] [address] Continue Lasix IV Continue high flow oxygen BNP from 07/16/20 36989 Patient' requirements 30 L Vapotherm FiO2 90% CT showed Enlarging pleural effusions and increasing compressive atelectasis, infiltrates and interstitial edema on 07/18/20 Thoracocentesis was done on 07/18/20 ,pleural fluid transudate. Pleura VAC was placed. I talked to Dr. Henson, he recommended to aspirate no more than 200cc of fluid in one time in order to prevent acute reexpansion of pulmonary edema On 07/18/20 pleural fluid positive for Staphylococcus capitis, most likely contamination. Patient does not have leukocytosis, afebrile. Second set of pleural fluid negative for culture Continue drain pleural fluid. pigtail catheter was placed on 07/22/20 to drain right pleural effusion, 600 mL was drained Pain management Acute re-expansion pulmonary edema Complication from right thoracentesis on 07/10/2020. Pleural fluid is transudate Continue diuresis with Lasix IV, diuresis was intensified, metolazone was added. Acute diastolic CHF Echo showed Normal LV size with mild left ventricular hypertrophy (LVH), septal wall motion abnormality related to LBBB and overall left ventricular ejection fraction (LVEF) estimated at 50% to 55%. Grade 1 diastolic dysfunction I's and O's, fluid restriction Continue diuresis Anemia of chronic diseases Hemoglobin 9 No indication for blood transfusion for now Acute kidney injury Slightly worsening today, creatinine 1.83 continue to monitor Type 2 diabetes I increased the dose of detemir to 6 units twice a day for better control glucose level Insulin sliding scale Diabetes diet Breast cancer stage IV pathology report shows breast carcinoma I talked to Dr. Araiza for did consult on 07/09. He will see the patient tomorrow Acute urinary retention -will continue Hernandez for accurate I/O's Right renal artery stenosis -Seen on retroperitoneal US on 10/26/2016 Hypertension Norvasc and hydralazine on hold due to intensive diuresis. Blood pressure stable Hypertensive urgency Resolved Elevated troponin Most likely demand ischemia Troponin trended down Gait instability Patient has history of gait instability. MRI spine showed There is diffuse heterogeneous signal intensity of the visualized bone marrow of the lumbar, lower thoracic, and upper sacral spine. This is concerning for metastatic disease. Myeloma is within the differential. Degenerative changes are noted at multiple lumbar and lower thoracic levels, as described above. No significant spinal canal stenosis at any lumbar level. 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
[2020-07-22 19:23] LABS: HEMATOCRIT 26.4 % (36.0-47.0); HEMOGLOBIN 8.4 g/dl (12.0-15.5)
--- NOTE | 2020-07-22 21:54 | IPNPDOC ---
Subjective Date Seen The patient was seen on 07/22/20. Subjective Chief Complaint/HPI Patient is breathing better today. She states that she feels tired. Objective Physical Examination General Exam: Positive: Alert, Cooperative, No Acute Distress Other physical findings breathing comfortably on NC, chest drain in place with serous drainage right breast punch biopsy site with the scab,no redness or drainage, steris removed, Right breast with hard mass centrally and hardened overlying skin abdomen nondistended no gross deformity of extremities Assessment /Plan Assessment 70 y o lady in with right breast cancer, likely metastatic since lytic lesion in bone seen. Pulm effusion fluid was tested x2 for malignancy. No malignancy found in the fluid. I discussed the result of pathology with patient today and provided her with the copy. - awaiting results if cancer is lobular or ductal, awaiting Grade, awaiting ER/OK/Her2 status, will update patient when those are available - once above are available, systemic treatment will be provided by [facility] team - symptomatic treatment Plan/VTE VTE Prophylaxis Ordered?: Yes VS, I&O, 24H, [facility] Vital Signs/I&O Vital Signs Date Time Temp Pulse Resp B/P (MAP) Pulse Ox O2 Delivery O2 Flow Rate FiO2 07/22/20 20:56 112/53 07/22/20 20:55 18 07/22/20 20:00 99.3 66 90 High Flow Cannula 3.0 07/21/20 08:00 90 I&O- Last 24 Hours up to 6 AM 07/22/20 06:00 Intake Total 390.0 ml Output Total 2930 ml Balance -2540.0 ml Laboratory Data 24H LABS Laboratory Tests 2 07/22/20 05:40: Immature Granulocyte % (Auto) 0.6, Neutrophils (%) (Auto) 75.1H, Lymphocytes (%) (Auto) 11.2L, Monocytes (%) (Auto) 9.6H, Eosinophils (%) (Auto) 3.1H, Basophils (%) (Auto) 0.4, Neutrophils # (Auto) 6.2, Lymphocytes # (Auto) 0.9L, Monocytes # (Auto) 0.8, Eosinophils # (Auto) 0.3, Basophils # (Auto) 0.0, Nucleated Red Blood Cells % (auto) 0.0, Anion Gap 5L, Glomerular Filtration Rate 29.0L, Calcium Level 7.9L, Magnesium Level 2.2, Total Bilirubin 0.1L, Aspartate Amino Transf (AST/SGOT) 30, Alanine Aminotransferase (ALT/SGPT) 20, Alkaline Phosphatase 187H, Total Protein 5.6#L, Albumin 2.1L, Albumin/Globulin Ratio 0.6L 07/22/20 11:42: Bedside Glucose (Misc Panel) 236H 07/22/20 17:11: Bedside Glucose (Misc Panel) 232H 07/22/20 20:01: Bedside Glucose (Misc Panel) 229H CBC/BMP Laboratory Tests 07/21/20 23:53 07/22/20 05:40 07/22/20 12:10 07/22/20 19:03 Microbiology Microbiology 07/21/20 Acid Fast Stain, Received Pending 07/21/20 Mycobacterial Culture, Received Pending 07/21/20 Fungal Smear, Received Pending 07/21/20 Fungal Culture, Received Pending 07/21/20 Gram Stain - Final, Resulted 07/21/20 Anaerobic Culture, Resulted Pending 07/21/20 Body Fluid Culture, Received Pending 07/18/20 Gram Stain - Final, Complete 07/18/20 Anaerobic Culture - Final, Complete 07/18/20 Body Fluid Culture - Final, Complete Staphylococcus Capitis POORNIMA GUY DO Jul 22, 2020 21:54
[2020-07-22 23:04] LABS: HEMOGLOBIN 8.6 g/dl (12.0-15.5)
[2020-07-22] MEDS: MIRALAX *UNIT DOSE* 17GM PACKET PO PRN (23:59)
[2020-07-23] VITALS (8 sets, daily range): BP systolic 106–132; BP diastolic 51–61; O2SAT 96
[2020-07-23] MEDS: LEVALBUTEROL 1.25 MG/0.5 ML CONCENTRATE NEB NEB SCH ×4 (02:00→20:23)
[2020-07-23] MEDS: NORCO, ANEXSIA 5/325MG TABLET (HYDROcodone/ACETAMINOPHEN) PO PRN ×4 (03:00→21:06)
[2020-07-23] MEDS ORDERED: NORCO, ANEXSIA 5/325MG TABLET (HYDROcodone/ACETAMINOPHEN) As Ordered ONE (03:00)
[2020-07-23 05:33] LABS: BASO % 0.2 % (0.0-1.0); EOS # 0.1 10^3/uL (0.0-0.5); EOS % 0.3 % (0.0-3.0); HEMATOCRIT 26.7 % (36.0-47.0); HEMOGLOBIN 8.6 g/dl (12.0-15.5); LYMPH # 0.7 10^3/uL (1.5-5.0); LYMPH % 3.8 % (24.0-44.0); MEAN CORPUSCULAR HEMOGLOBIN 29.8 pg (27.0-33.0); MEAN CORPUSCULAR HGB CONC 32.2 g/dl (32.0-36.5); MEAN CORPUSCULAR VOLUME 92.4 fl (80.0-96.0); MONO # 1.1 10^3/uL (0.0-0.8); MONO % 5.6 % (2.0-8.0); NEUTROPHILS # 16.9 10^3/uL (1.5-8.5); NEUTROPHILS % 89.5 % (36.0-66.0); PLATELET COUNT, AUTOMATED 431 10^3/uL (150-450); RED BLOOD COUNT 2.89 10^6/uL (4.00-5.40); WHITE BLOOD COUNT 18.8 10^3/uL (4.0-10.0)
[2020-07-23 06:03] LABS: ALBUMIN 2.4 GM/DL (3.2-5.2); BILIRUBIN,TOTAL 0.2 MG/DL (0.2-1.0); CALCIUM LEVEL 8.1 MG/DL (8.8-10.2); CREATININE FOR GFR 1.83 MG/DL (0.55-1.30); MAGNESIUM LEVEL 2.3 MG/DL (1.8-2.4); POTASSIUM SERUM 3.6 MEQ/L (3.5-5.1); TOTAL PROTEIN 5.7 GM/DL (6.4-8.2)
[2020-07-23] MEDS: **hydrALAZINE** 10 MG TAB PO SCH ×3 (06:56→22:00)
[2020-07-23] MEDS: LEVOTHYROXINE 75MCG TABLET (0.075MG) PO SCH (06:56)
[2020-07-23] MEDS: SLF 3 ML SYR IV SCH ×3 (06:57→21:03)
[2020-07-23] MEDS: FUROSEMIDE 100MG/10ML VIAL (J1940) IV SCH (06:57)
--- NOTE | 2020-07-23 08:15 | REP ---
INDICATION: pleural effusios, CHF. COMPARISON: 07/22/2020. TECHNIQUE: Upright PA and lateral chest. FINDINGS: The left pigtail pleural drainage catheter has been removed. This is unchanged. There is no pneumothorax. The left pleural effusion persists and appears slightly larger. The right pleural effusion and attendant compression atelectasis of the adjacent lung are unchanged. The known right 7th rib fracture is unchanged. The cardiac margins are obscured by the pleural effusions and cardiac size cannot be ascertained. The monika, mediastinum, and skeletal structures are otherwise unremarkable. IMPRESSION: The left pleural effusion appears slightly larger. The right pleural effusion is unchanged. The left pleural pigtail drainage catheter has been removed. This is unchanged. <Electronically signed by Stephane Valentino > 07/23/20 [id number]
[2020-07-23] MEDS: LEVEMIR (INSULIN DETEMIR) 1 UNITS/0.01ML SC SCH ×2 (08:46→21:00)
[2020-07-23] MEDS: HumaLOG INSULIN (NovoLOG) PER UNIT SC SCH ×4 (08:46→20:09)
[2020-07-23] MEDS: CEFEPIME HCL 2 GM in D5W MINI-BAG PLUS 50 ML IV SCH ×2 (08:47→20:09)
[2020-07-23] MEDS: guaiFENesin ER 600 MG TAB PO SCH ×2 (08:50→20:06)
[2020-07-23] MEDS: IRON POLYSAC (NIFEREX) 150 MG CAP PO SCH ×2 (08:51→21:03)
[2020-07-23] MEDS: ASCORBIC ACID 500 MG TAB PO SCH (08:51)
[2020-07-23] MEDS: POTASSIUM CHLORIDE 10 MEQ SR TABLET PO SCH (08:51)
[2020-07-23] MEDS: metOLazone 5 MG TAB PO SCH (08:51)
[2020-07-23] MEDS: CYANOCOBALAMIN 500 MCG TAB PO SCH (08:52)
--- NOTE | 2020-07-23 11:03 | ECHO ---
DATE OF PROCEDURE: 07/22/2020 Age: 70 Gender: Female Height: 66 inches Weight: 134 pounds Body Surface Area: 1.69 m2 PATIENT LOCATION: Inpatient PCU Room 3221. REFERRING PHYSICIAN: Jacky Pang DO. INDICATION: CHF. MEASUREMENTS: 2D Measurements: RV 4.2 cm LV 4.6 cm Septum 1.3 cm Posterior wall 1.3 cm Aortic Root 2.8 cm LA 4.5 cm LVEF 60% Doppler Measurements: AV 1.25 m/s LVOT 0.84 m/s LVOT diameter 1.6 cm MV-E 110, A 104, EA ratio 1.1 Early mitral deceleration time 203 msec E prime medial 6.2, A prime medial 9, E prime lateral 5.8 Average E/E prime ratio 18.3/PCWP 24.6 mmHg PV - 0.8 m/s Pulmonary artery acceleration time 100 msec RVSP 49 mmHg IVC 1.8 cm COMMENTS: Normal sinus rhythm with right bundle branch block. M-mode and 2-dimensional echocardiography was performed with pulse, continuous wave, color flow, and tissue Doppler studies. Mild concentric left ventricular hypertrophy with septal wall motion abnormality, ? prior septal injury but could not rule out wall motion abnormality due to right ventricular pressure overload. Other left ventricular wall segments move normally. At least moderately dilated left atrium with grade 2 LV diastolic dysfunction and elevated estimated mean left atrial pressure. Mildly dilated right ventricle with normal right ventricular free wall motion and Doppler evidence of at least moderate pulmonary hypertension. Mildly dilated right atrium with IV size upper limits of normal with virtually absent respiratory collapse in keeping with an elevated central venous pressure/right heart failure. Normal aortic diameters. Mild to moderate aortic valvular sclerosis without functional abnormality. Very mild degenerative changes of the mitral valvular apparatus with adequate leaflet excursion and no posterior systolic buckling but mild mitral insufficiency. Normal appearing tricuspid valve with mild insufficiency. No apparent intracardiac mass. Small posterior pericardial effusion measuring 4-6 mm without evidence of cardiac chamber compression. MTDD
[2020-07-23] MEDS: DOCUSATE SODIUM 100MG CAPSULE PO PRN (12:57)
[2020-07-23] MEDS: SENNA 8.6 MG TAB (SENOKOT) PO PRN (12:57)
[2020-07-23] MEDS: ONDANSETRON 4MG/2ML VIAL IV PRN (12:57)
[2020-07-23] MEDS: ENOXAPARIN 30MG/0.3ML SYRINGE (J1650 PER 10MG) SC SCH (13:50)
--- NOTE | 2020-07-23 14:07 | IPN ---
PROGRESS NOTE DATE: 07/23/2020 Ms. Sheikh is feeling a bit nauseous today, and she is constipated without bowel movement. She is a bit more miserable today than she has been in the past few days. Nonetheless, she is alert, attentive, and talkative. Her vital signs show a tympanic membrane of 99.5 with a heart rate that ranges between 53-65 in a sinus rhythm, respiratory rate of 12-22 without the use of accessory muscles, who is 93%-96% saturated on 2 liters nasal cannula and whose blood pressure is ranging between 111/51 to 132/61. Her intake and output for the past 24 hours has been recorded as 790 in and 3850 out, for negativity of 3 liters. She has put out 1600 mL from the chest catheter after unclamping it yesterday. In the last 8 hours she has put out 80 mL. Her weight today is pending. PHYSICAL EXAMINATION: Her lungs show bibasilar inspiratory coarse and fine rhonchi and rales. Percussion notes are full to the diaphragm. Cardiac exam is without murmurs, clicks, gallops, or rubs. I cannot feel her point of maximal impulse (PMI). S1 and S2 are normal. Abdomen is soft and nontender. Bowel sounds are positive. There is no hepatomegaly. No costovertebral angle (CVA) tenderness. Extremities show almost now complete resolution of her pretibial edema with maybe trace pretibial edema on the right side. There is no calf tenderness, no differential swelling of the upper extremities. Skin is warm, dry, and perfused without cyanosis or mottling, including that of the nailbeds and knees. Neck is supple. There is no jugular venous distention. No subcutaneous emphysema. Trachea is midline. Mouth shows the mucous membranes to be pink and moist. Lips and commissures without lesions. No thrush. Eyes show her pupils to be equal and reactive. Extraocular motion intact. Sclerae anicteric. Neurologic shows II-XII intact. Normal gross motor, gross sensation intact. Gait is not tested. Psychiatric shows her to be awake, alert, and oriented times three with appropriate mood and affect and conversational. Her white count today has spiked to 18.8 from 8.2 yesterday. Hemoglobin and hematocrit are 8.6 and 26.7, essentially unchanged from yesterday with a platelet count of 431 and stable. Differential shows 89% neutrophils, 3% lymphocytes, 5% monocytes. There are no immature forms or toxic granulations. Her electrolytes show a marginally high total CO2 of 34 with a sodium 133, potassium 3.6. BUN and creatinine are 59 and 1.83, unchanged from yesterday. Glucose is 239 with a calcium of 8.1 and a corresponding albumin of 2.4. AST and ALT are normal. Microbiology of her pleural fluid from 07/18/2020 has now grown Staphylococcus capitis, only a few colonies, sensitivity except penicillin G. It is probably more of a contaminant. Because of her increase in her white count, the medical service has started her on antibiotics consisting of cefepime every 12 hours. Her chest x-ray shows her lung fully expanded to the chest wall. There is a vague opacity in the right lower hemithorax, probably secondary to atelectasis and/or postexpansion pulmonary edema. Left lung looks clear with some cephalization of vessels on both sides. Costophrenic angles on both sides look to be relatively sharp. Her echocardiogram done yesterday showed left ventricular (LV) diastolic dysfunction with a dilated left atrium with concentric left ventricular hypertrophy and a mildly dilated right ventricle with a very small pericardial effusion posteriorly without compression with an estimated right ventricular systolic pressure of 15 mmHg. IMPRESSION: 1. Congestive heart failure. 2. Pulmonary hypertension. 3. Bilateral pleural effusions, improving. 4. Acute renal injury, continuing. 5. Hypothyroidism. 6. Hypoalbuminemia, improving with albumin infusions. 7. Invasive breast cancer, now with lytic lesions to her bone, per Dr. Avila's note of yesterday. PLAN AND DISCUSSION: Because of her nausea and she is now quite negative over the past 5 days to an approximation of 10 liters, I will cut back on her Lasix diuresis to 40 mg a day. I will also stop the albumin infusions. I will continue her on 40 mg of Lasix daily. Will treat her constipation with Dulcolax suppositories. Her total CO2 has been elevated and no doubt secondary to a contraction alkalosis from the Lasix. There are no other clinical signs of infection other than the white count. She is on cefepime for now, but I question whether she actually needs that. We should re-evaluate that in the morning. Dr. Avila tells me that she is not going to offer her any intervention at this point in time. There is no skin left to do a mastectomy. Radiation may be an option later on.
[2020-07-23 15:05] LABS: BASO % 0.2 % (0.0-1.0); EOS # 0.1 10^3/uL (0.0-0.5); EOS % 0.5 % (0.0-3.0); HEMATOCRIT 26.8 % (36.0-47.0); HEMOGLOBIN 8.8 g/dl (12.0-15.5); LYMPH # 0.8 10^3/uL (1.5-5.0); LYMPH % 5.3 % (24.0-44.0); MEAN CORPUSCULAR HEMOGLOBIN 30.1 pg (27.0-33.0); MEAN CORPUSCULAR HGB CONC 32.8 g/dl (32.0-36.5); MEAN CORPUSCULAR VOLUME 91.8 fl (80.0-96.0); MONO # 1.1 10^3/uL (0.0-0.8); MONO % 7.4 % (2.0-8.0); NEUTROPHILS # 13.1 10^3/uL (1.5-8.5); NEUTROPHILS % 86.1 % (36.0-66.0); PLATELET COUNT, AUTOMATED 447 10^3/uL (150-450); RED BLOOD COUNT 2.92 10^6/uL (4.00-5.40); WHITE BLOOD COUNT 15.2 10^3/uL (4.0-10.0)
--- NOTE | 2020-07-23 16:23 | IPNPDOC ---
Text Note Date of Service The patient was seen on 07/23/20. NOTE Subjective: Patient stated that she feels tired and fatigue today. She feels d epressed. Patient complains of constipation. Objective: GENERAL APPEARANCE: Ill looking female HEENT: no scleral icterus, plus JVD, EOMI CARDIOVASCULAR: S1S2 LUNGS: Diminished lung sounds bilaterally, thoracocentesis tube to in place ABDOMEN: soft & not tender w palpitation MUSCULOSKELETAL: Mild pitting edema of lower extremities bilaterally INTEGUMENT: no generalized pallor NEUROLOGICAL: cranial nerve function from 2-12 intact intact, follows commands, speech not dysarthric Assessment and plan Patient is a 70 year old female with DM, hypertension, and renal artery stenosis who presents with bilateral lower extremity edema and found to have hypertensive urgency, acute kidney injury, CHF, and troponin increase. She was then subsequently found to have multiple lytic lesions (skull, thoracic cavity, lumbar spine), right breast cancer, and bilateral pleural effusions. Acute hypoxemic respiratory failure Secondary to pleural effusion secondary to diastolic CHF exacerbation superimposed with possible malignant effusion Echo showed EF 50 to 55% with grade 1 diastolic [place] [address] Continue Lasix IV Continue high flow oxygen BNP from 07/16/20 14775 Patient' requirements 30 L Vapotherm FiO2 90% CT showed Enlarging pleural effusions and increasing compressive atelectasis, infiltrates and interstitial edema on 07/18/20 Thoracocentesis was done on 07/18/20 ,pleural fluid transudate. Pleura VAC was placed. I talked to Dr. Henson, he recommended to aspirate no more than 200cc of fluid in one time in order to prevent acute reexpansion of pulmonary edema On 07/18/20 pleural fluid positive for Staphylococcus capitis, most likely contamination. Patient does not have leukocytosis, afebrile. Second set of pleural fluid negative for culture Continue drain pleural fluid. pigtail catheter was placed on 07/22/20 to drain right pleural effusion, 600 mL was drained Pain management On 07/23/20 patient developed leukocytosis with neutrophils 89%, patient afebrile. I started cefepime IV empirically. Chest x-ray showed The left pleural effusion appears slightly larger. The right pleural effusion is unchanged.The left pleural pigtail drainage catheter has been removed. This is unchanged Procalcitonin 0.58 which indicates antibiotic therapy Await blood culture results Acute re-expansion pulmonary edema Complication from right thoracentesis on 07/10/2020. Pleural fluid is transudate Continue diuresis with Lasix and metolazone Acute diastolic CHF Echo showed Normal LV size with mild left ventricular hypertrophy (LVH), septal wall motion abnormality related to LBBB and overall left ventricular ejection fraction (LVEF) estimated at 50% to 55%. Grade 1 diastolic dysfunction I's and O's, fluid restriction Continue diuresis 07/22/20 Echo showed left ventricular (LV) diastolic dysfunction with a dilated left atrium with concentric left ventricular hypertrophy and a mildly dilated right ventricle with a very small pericardial effusion posteriorly without compression with an estimated right ventricular systolic pressure of 15 mmHg, ejection fraction of 60% Anemia of chronic diseases Hemoglobin 8.8 No indication for blood transfusion for now Acute kidney injury Stable today, creatinine 1.8 continue to monitor Type 2 diabetes I increased the dose of detemir to 6 units twice a day for better control glucose level Insulin sliding scale Diabetes diet Breast cancer stage IV pathology report shows breast carcinoma I talked to Dr. Araiza for did consult on 07/09. He will see the patient today Acute urinary retention -will continue Hernandez for accurate I/O's Right renal artery stenosis -Seen on retroperitoneal US on 10/26/2016 Hypertension Norvasc and hydralazine on hold due to intensive diuresis. Blood pressure stable Hypertensive urgency Resolved Elevated troponin Most likely demand ischemia Troponin trended down Gait instability Patient has history of gait instability. MRI spine showed There is diffuse heterogeneous signal intensity of the visualized bone marrow of the lumbar, lower thoracic, and upper sacral spine. This is concerning for metastatic disease. Myeloma is within the differential. Degenerative changes are noted at multiple lumbar and lower thoracic levels, as described above. No significant spinal canal stenosis at any lumbar level. There is no bone marrow compression according to MRI PT/OT Hypothyroidism Continue levothyroxine Right leg swelling/right arm swelling Doppler ultrasound negative for DVT Cachexia Patient stated that her weight decreased around 20 pounds past year She has reduced muscle mass with temporal wasting and low albumin Hogshead Hand assessment Constipation Continue senna, MiraLAX, Dulcolax DVT ppx Lovenox 30 mg subcutaneously VS,Fishbone, I+O VS, Fishbone, I+O Laboratory Tests 07/22/20 19:03 07/22/20 22:54 07/23/20 05:14 07/23/20 14:45 Vital Signs Date Time Temp Pulse Resp B/P (MAP) Pulse Ox O2 Delivery O2 Flow Rate FiO2 07/23/20 15:35 20 Room Air 07/23/20 13:51 111/59 07/23/20 12:00 98.6 55 95 2.0 07/21/20 08:00 90 I&O- Last 24 Hours up to 6 AM 07/23/20 06:00 Intake Total 930.0 ml Output Total 3880 ml Balance -2950.0 ml SB NICE DO Jul 23, 2020 16:23
--- NOTE | 2020-07-23 17:52 | IPNPDOC ---
Date Seen The patient was seen on 07/23/20. I saw the patient and her room at 5:30 PM on 07/23/2020. The histopathology has shown that she has lobular carcinoma of the breast which is ER/[place] positive. It is HER-2 negative. Additionally the fluid and cytology from the chest also is positive. At the time of my going to the patient's room her son was present as he was on the ftrst encounter with me. If the patient was fit and willing which she is not a short course of chemotherapy with a taxine as single agent to control the fluid in the chest and then follow it with ant ihormone therapy using an aromatase inhibitor would be my first choice. This is so because with large amounts of fluid and other acute issues and would take much time for the aromatase inhibitors to be effective. We could also l later add a CDK 46 inhibitor such as palbociblib . However that will requires additional side effects and approvals at this time. Consequently single agent letrozole 2.5 mg a day can be init Her son was agreeable to this however in discussing with the patient who was tired but woke up and said that she would think about it. Fundamentally she appears to be anti-treatment of this sort. The side effects of letrozole easily tolerated but over the long run bone problems c ome into play which is not an issue at the moment. I spoken to her attending and follow the decision. VS, I&O, 24H, Fishbone Vital Signs/I&O Vital Signs Date Time Temp Pulse Resp B/P (MAP) Pulse Ox O2 Delivery O2 Flow Rate FiO2 07/23/20 16:00 99.0 57 18 110/55 (73) 92 Room Air 07/23/20 12:00 2.0 07/21/20 08:00 90 I&O- Last 24 Hours up to 6 AM 07/23/20 06:00 Intake Total 930.0 ml Output Total 3880 ml Balance -2950.0 ml Laboratory Data 24H LABS Laboratory Tests 2 07/22/20 20:01: Bedside Glucose (Misc Panel) 229H 07/23/20 05:14: Immature Granulocyte % (Auto) 0.6, Neutrophils (%) (Auto) 89.5H, Lymphocytes (%) (Auto) 3.8L, Monocytes (%) (Auto) 5.6, Eosinophils (%) (Auto) 0.3, Basophils (%) (Auto) 0.2, Neutrophils # (Auto) 16.9H, Lymphocytes # (Auto) 0.7L, Monocytes # (Auto) 1.1H, Eosinophils # (Auto) 0.1, Basophils # (Auto) 0.0, Nucleated Red Blood Cells % (auto) 0.0, Anion Gap 4L, Glomerular Filtration Rate 29.0L, Calcium Level 8.1L, Magnesium Level 2.3, Total Bilirubin 0.2#, Aspartate Amino Transf (AST/SGOT) 29, Alanine Aminotransferase (ALT/SGPT) 23, Alkaline Phosphatase 202H, CA-Zwc-[id number]-Type Natriuretic Peptide 19866M, Total Protein 5.7L, Albumin 2.4L, Albumin/Globulin Ratio 0.7L 07/23/20 08:26: Lactic Acid Level 1.5, Procalcitonin 0.58 07/23/20 12:38: Bedside Glucose (Misc Panel) 159H 07/23/20 14:45: Immature Granulocyte % (Auto) 0.5, Neutrophils (%) (Auto) 86.1H, Lymphocytes (%) (Auto) 5.3L, Monocytes (%) (Auto) 7.4, Eosinophils (%) (Auto) 0.5, Basophils (%) (Auto) 0.2, Neutrophils # (Auto) 13.1H, Lymphocytes # (Auto) 0.8L, Monocytes # (Auto) 1.1H, Eosinophils # (Auto) 0.1, Basophils # (Auto) 0.0, Nucleated Red Blood Cells % (auto) 0.0 CBC/BMP Laboratory Tests 07/22/20 19:03 07/22/20 22:54 07/23/20 05:14 07/23/20 14:45 Microbiology Microbiology 07/23/20 Blood Culture, Received Pending 07/23/20 Blood Culture, Received Pending 07/21/20 Acid Fast Stain, Received Pending 07/21/20 Mycobacterial Culture, Received Pending 07/21/20 Fungal Smear, Received Pending 07/21/20 Fungal Culture, Received Pending 07/21/20 Gram Stain - Final, Complete 07/21/20 Anaerobic Culture - Final, Complete 07/21/20 Body Fluid Culture, Received Pending 07/18/20 Gram Stain - Final, Complete 4/2/21 Anaerobic Culture - Final, Complete 07/18/20 Body Fluid Culture - Final, Complete Staphylococcus Capitis BETINA OSMAN MDFRCP Jul 23, 2020 17:52
[2020-07-23] MEDS ORDERED: ONDANSETRON 4MG/2ML VIAL IV ONE (18:15)
--- NOTE | 2020-07-23 18:32 | IPNPDOC ---
Text Note Date of Service The patient was seen on 07/23/20. NOTE I received acnnsultation request this afternoon at 1600. I attempted to see th is patient at 1630, however, she was sleeping soundly. I did speak with her son, Ramu, who was in the room at the time and explained what the purpose of [facility] is and attempted to discuss his mother's current condition and possible prognosis. He reported he knew she had problems with her CHF and had metastatic breast cancer, but was not sure about any treatment or plans or prognosis. Since Nicole was sleeping so soundly, I opted to return later to see if she was awake. I came back at 1800. She had her eyes closed but was arousable. She reported feeling extremely nauseous and reported she had some emesis. She further stated she hasbeen having problems with nausea for about 2 months prior to this admission. She was extremely subdued and uncomfortable with her nausea. She reported no BM in 2 days and stated she had been asking for an enema "but they won't give me one. When I mentioned Dr. Taylor indicated in his note he was ordering a suppository, she stated "That's right he did. I haven't had that yet." She did not appear to feel up to having any conversation due to her nausea. She has ondansetron 4 mg IV ordered, last dose at 1237 today. I ordered a one time dose of ondanstron 8 mg; will ensure suppository is ordered since she is completely unable to toelrate po laxatives at this time. If ondansetron is not effective for nausea, prochlorperazine 10 mg IV could be tried or can also be given rectally at a dose of 25 mg once she moves her bowels. I will attempt to see her again tomorrow when I hopeshe will be feeling more inclined to talk with me. VS,Fermine, I+O VS, Shamarbone, I+O Laboratory Tests 07/22/20 19:03 07/22/20 22:54 07/23/20 05:14 07/23/20 14:45 Vital Signs Date Time Temp Pulse Resp B/P (MAP) Pulse Ox O2 Delivery O2 Flow Rate FiO2 07/23/20 16:05 16 07/23/20 16:00 99.0 57 110/55 (73) 92 Room Air 07/23/20 12:00 2.0 07/21/20 08:00 90 I&O- Last 24 Hours up to 6 AM 07/23/20 06:00 Intake Total 930.0 ml Output Total 3880 ml Balance -2950.0 ml Joanne [facility] Jul 23, 2020 18:32
[2020-07-23] MEDS ORDERED: BISACODYL 10 MG SUPP PR ONE (19:00)
--- NOTE | 2020-07-23 21:55 | IPNPDOC ---
Subjective Date Seen The patient was seen on 07/23/20. Subjective Chief Complaint/HPI Patient states that she is very tired today and she is bothered by nausea. Her back is also hurting. She is breathing better. Objective Physical Examination General Exam: Positive: Alert, Cooperative Other physical findings breathing comfortably on NC abdomen nondistended extremities no gross deformity + pitting edema Assessment /Plan Assessment 70y o lady with confirmed dx of Right breast cancer, likely metastatic due to numerous lytic lesions in bones, now admitted with respiratory distress and pleural effusions - updated pathology results discussed with patient, Tumor is ER+[place]+Her2 neg. Medical Oncology following, systemic treatment recommended - no intervention is warranted from breast surgery point at this stage, will be available if breast wound develops - will sign off at this time, please dont hesitate to re-consult if any other issues or interventions needed, thank you for allowing me to assist with care of Ms. Sheikh Plan/VTE VTE Prophylaxis Ordered?: Yes VS, I&O, 24H, Fishbone Vital Signs/I&O Vital Signs Date Time Temp Pulse Resp B/P (MAP) Pulse Ox O2 Delivery O2 Flow Rate FiO2 07/23/20 21:06 54 20 96 Nasal Cannula 2.0 07/23/20 20:00 99.0 106/53 (70) 07/21/20 08:00 90 I&O- Last 24 Hours up to 6 AM 07/23/20 06:00 Intake Total 930.0 ml Output Total 3880 ml Balance -2950.0 ml Laboratory Data 24H LABS Laboratory Tests 2 07/23/20 05:14: Immature Granulocyte % (Auto) 0.6, Neutrophils (%) (Auto) 89.5H, Lymphocytes (%) (Auto) 3.8L, Monocytes (%) (Auto) 5.6, Eosinophils (%) (Auto) 0.3, Basophils (%) (Auto) 0.2, Neutrophils # (Auto) 16.9H, Lymphocytes # (Auto) 0.7L, Monocytes # (Auto) 1.1H, Eosinophils # (Auto) 0.1, Basophils # (Auto) 0.0, Nucleated Red Blood Cells % (auto) 0.0, Anion Gap 4L, Glomerular Filtration Rate 29.0L, Calcium Level 8.1L, Magnesium Level 2.3, Total Bilirubin 0.2#, Aspartate Amino Transf (AST/SGOT) 29, Alanine Aminotransferase (ALT/SGPT) 23, Alkaline Phosphatase 202H, WK-Tta-A-Type Natriuretic Peptide 45757M, Total Protein 5.7L, Albumin 2.4L, Albumin/Globulin Ratio 0.7L 07/23/20 08:26: Lactic Acid Level 1.5, Procalcitonin 0.58 07/23/20 12:38: Bedside Glucose (Misc Panel) 159H 07/23/20 14:45: Immature Granulocyte % (Auto) 0.5, Neutrophils (%) (Auto) 86.1H, Lymphocytes (%) (Auto) 5.3L, Monocytes (%) (Auto) 7.4, Eosinophils (%) (Auto) 0.5, Basophils (%) (Auto) 0.2, Neutrophils # (Auto) 13.1H, Lymphocytes # (Auto) 0.8L, Monocytes # (Auto) 1.1H, Eosinophils # (Auto) 0.1, Basophils # (Auto) 0.0, Nucleated Red Blood Cells % (auto) 0.0 07/23/20 17:53: Bedside Glucose (Misc Panel) 85 07/23/20 20:08: Bedside Glucose (Misc Panel) 90 CBC/BMP Laboratory Tests 07/22/20 22:54 07/23/20 05:14 07/23/20 14:45 Microbiology Microbiology 07/23/20 Blood Culture, Received Pending 07/23/20 Blood Culture, Received Pending 07/21/20 Acid Fast Stain, Received Pending 07/21/20 Mycobacterial Culture, Received Pending 07/21/20 Fungal Smear, Received Pending 07/21/20 Fungal Culture, Received Pending 07/21/20 Gram Stain - Final, Complete 07/21/20 Anaerobic Culture - Final, Complete 07/21/20 Body Fluid Culture, Received Pending 07/18/20 Gram Stain - Final, Complete 07/18/20 Anaerobic Culture - Final, Complete 07/18/20 Body Fluid Culture - Final, Complete Staphylococcus Capitis POORNIMA GUY DO Jul 23, 2020 21:55
[2020-07-24] VITALS (7 sets, daily range): BP systolic 108–170; BP diastolic 52–77; O2SAT 99
[2020-07-24] MEDS: LEVALBUTEROL 1.25 MG/0.5 ML CONCENTRATE NEB NEB SCH ×4 (01:30→19:57)
[2020-07-24] MEDS: LEVOTHYROXINE 75MCG TABLET (0.075MG) PO SCH (05:20)
[2020-07-24] MEDS: **hydrALAZINE** 10 MG TAB PO SCH (05:21)
[2020-07-24] MEDS: SLF 3 ML SYR IV SCH ×3 (05:21→21:43)
[2020-07-24 05:42] LABS: BASO % 0.2 % (0.0-1.0); EOS # 0.1 10^3/uL (0.0-0.5); EOS % 0.7 % (0.0-3.0); HEMATOCRIT 27.1 % (36.0-47.0); HEMOGLOBIN 8.7 g/dl (12.0-15.5); LYMPH % 7.8 % (24.0-44.0); MEAN CORPUSCULAR HEMOGLOBIN 29.4 pg (27.0-33.0); MEAN CORPUSCULAR HGB CONC 32.1 g/dl (32.0-36.5); MEAN CORPUSCULAR VOLUME 91.6 fl (80.0-96.0); MONO # 0.8 10^3/uL (0.0-0.8); MONO % 6.5 % (2.0-8.0); NEUTROPHILS # 10.8 10^3/uL (1.5-8.5); NEUTROPHILS % 84.4 % (36.0-66.0); PLATELET COUNT, AUTOMATED 436 10^3/uL (150-450); RED BLOOD COUNT 2.96 10^6/uL (4.00-5.40); WHITE BLOOD COUNT 12.8 10^3/uL (4.0-10.0)
[2020-07-24] MEDS: ONDANSETRON 4MG/2ML VIAL IV PRN (06:00)
[2020-07-24] MEDS: NORCO, ANEXSIA 5/325MG TABLET (HYDROcodone/ACETAMINOPHEN) PO PRN (06:02)
[2020-07-24 06:06] LABS: ALBUMIN 2.3 GM/DL (3.2-5.2); BILIRUBIN,TOTAL 0.3 MG/DL (0.2-1.0); CALCIUM LEVEL 8.2 MG/DL (8.8-10.2); CREATININE FOR GFR 2.17 MG/DL (0.55-1.30); GLOMERULAR FILTRATION RATE 23.8 (>39); MAGNESIUM LEVEL 2.4 MG/DL (1.8-2.4); POTASSIUM SERUM 4.2 MEQ/L (3.5-5.1)
[2020-07-24] MEDS ORDERED: BISACODYL 10 MG SUPP PR PRN (07:40)
[2020-07-24] MEDS ORDERED: MAGNESIUM CITRATE 300 ML BTL PO ONE (08:00)
[2020-07-24] MEDS: METOCLOPRAMIDE INJ 10MG/2ML VIAL (J2765 PER 1) IV PRN (08:12)
--- NOTE | 2020-07-24 08:40 | REP ---
INDICATION: pleural effusios, CHF. COMPARISON: 07/23/2020. TECHNIQUE: Sitting AP and lateral views of the chest. FINDINGS: The left pleural effusion is unchanged. The right pleural effusion and right lung atelectasis have significantly improved and are almost entirely resolved. Cardiac size is normal. The monika, mediastinum, and skeletal structures are unchanged. IMPRESSION: The right pleural effusion and right lung atelectasis have almost entirely resolved. The left pleural effusion is unchanged. <Electronically signed by Stephane Valentino > 07/24/20 0860
[2020-07-24] MEDS: CEFEPIME HCL 2 GM in D5W MINI-BAG PLUS 50 ML IV SCH ×2 (08:55→21:49)
[2020-07-24] MEDS: HumaLOG INSULIN (NovoLOG) PER UNIT SC SCH ×4 (08:55→20:03)
[2020-07-24] MEDS: CYANOCOBALAMIN 500 MCG TAB PO SCH (08:56)
[2020-07-24] MEDS: guaiFENesin ER 600 MG TAB PO SCH ×2 (08:56→21:49)
[2020-07-24] MEDS: LEVEMIR (INSULIN DETEMIR) 1 UNITS/0.01ML SC SCH ×2 (08:56→21:00)
[2020-07-24] MEDS: POTASSIUM CHLORIDE 10 MEQ SR TABLET PO SCH (08:56)
[2020-07-24] MEDS: FUROSEMIDE 40MG/4ML VIAL (J1940) IV SCH (08:57)
[2020-07-24] MEDS: metOLazone 5 MG TAB PO SCH (08:57)
[2020-07-24] MEDS: IRON POLYSAC (NIFEREX) 150 MG CAP PO SCH ×2 (08:57→21:49)
[2020-07-24] MEDS: ASCORBIC ACID 500 MG TAB PO SCH (08:57)
--- NOTE | 2020-07-24 13:11 | CR.PDOC ---
General Date of Consultation: Jul 24, 2020 Referring Provider: SB NICE DO Attending Physician: SB NICE DO Consultation REASON FOR CONSULTATION/CHIEF COMPLAINT: 70 year old female with widely metastatic breast cancer and CHF which was decompensated on admission. She informs me she has no PCP. She also informs me she has been treating her breast cancer with some special mushrooms for the past 2 years and it kept her cancer in control until she was admitted here 07/07/20 with lower extremity edema and inability to move her legs. She has been recieving diuresis, had a chest tube placed to drain a pleural effusion ( path was negative for cancerous cells x 2 ). She rpeorted having problems with nausea for several months and now that her edema has improved it is her worst symptom. She informs me she did not want to pursue medical oncology treatment for her breasst cancer "because it will make my cancer cells worse" however, her son and her brother are urging her to take hormone therapy and now she is on the fence about that. She is a full code. Her son Ramu is her HCP. Nausea continues today though she reported she did havea BM last night. Anti emetic medication changed to metoclopramide today, so far she does not appreciate any difference thouogh to my eye she looks less miserable than yesterday. When I arrived she was actually about to stands with PT and was able to do so without their assistance and was able to side step about 3 steps. This left her a bit short of breath. She reported to me she thiks her insulin dose is too high her in the hospital, she was only taking metformin at home on a prn basis depending on if her blood glucose readings were high. She lives alone, has 5 steps to get into her home which is on one level. HISTORY OF PRESENT ILLNESS: as above ALLERGIES: Please see below. HOME MEDICATIONS: Please see below. PAST MEDICAL HISTORY: 1. Breast caner 2. HTN 3. renal artery stenosis 4. type 2 DM 5. CHF 6. pleural effusion REVIEW OF SYSTEMS: CONSTITUTIONAL: + weight loss, night sweats, fatigue HEENT: no dysphagia CARDIOVASCULAR: +edema, denies chest pain or palpitations RESPIRATORY: dyspnea on exertion, denies couogh or hemoptysis GENITOURINARY: indwelling catheter at this time MUSCULOSKELETAL: some back soreness GASTROINTESTINAL: nausea, anorexia SKIN: no rashes NEUROLOGICAL: weak PSYCHIATRIC: denies depression/anxiety ENDOCRINE: type 2 DM HEMATOLOGIC/LYMPHATIC: breast cancer PHYSICAL EXAMINATION: VITAL SIGNS: Please see below. GENERAL APPEARANCE: alert, appears ill but less so than yesterday. Pallid HEENT: oral muscosa is tacky RESPIRATORY: reduced breath sounds bilateral bases CT in place CARDIOVASCULAR: RRR ABDOMEN: +BS, no guarding or rebound EXTREMITIES: some edema no clubbing or cyanosis NEUROLOGICAL: all four ext reduced strength, able to make her needs known PSYCHIATRIC: affect is generally euthymic LABORATORY DATA: Please see below. ASSESSMENT/PLAN: 1. Metastatic breast cancer 2. CHF I spent 30 minnutes discussing goals of care with Nicole. She initially did not want medical treatment for her breast cancer but now is rethinking due to input from her family. I reviewed 5 Wishes with her and urged her to look at this at her leisure and discuss with her son since he is HCP. I told her it would be advisable to complete a MOLST form once she has had a chance to thinnk about how aggressive she wishes treatment to be going forward. I emphasized her treatment decisions are hers, since she appears to have capacity to make her medical decisions. She continues to feel nauseated but may be somewhat improved since BM and change to metoclopramide IV. If this is ineffective consider prochlorperazine 25 mg TN tid prn nausea. I have left her my business card. It is unclear to me what her prognosis isbut should she choose not to pursue treatment for her breast cancer, I think she would likely be hospice apppropriate. Given her widespread cancer and CHF she likely ahs a poor prognosis. Vital Signs/I&O Vital Signs Date Time Temp Pulse Resp B/P (MAP) Pulse Ox O2 Delivery O2 Flow Rate FiO2 07/24/20 12:00 98.0 50 18 147/66 (93) 93 Nasal Cannula 2.0 07/21/20 08:00 90 I&O- Last 24 Hours up to 6 AM 07/24/20 06:00 Intake Total 600 ml Output Total 475 ml Balance 125 ml Laboratory Data Labs 24H Laboratory Tests 2 07/23/20 14:45: Immature Granulocyte % (Auto) 0.5, Neutrophils (%) (Auto) 86.1H, Lymphocytes (%) (Auto) 5.3L, Monocytes (%) (Auto) 7.4, Eosinophils (%) (Auto) 0.5, Basophils (%) (Auto) 0.2, Neutrophils # (Auto) 13.1H, Lymphocytes # (Auto) 0.8L, Monocytes # (Auto) 1.1H, Eosinophils # (Auto) 0.1, Basophils # (Auto) 0.0, Nucleated Red Blood Cells % (auto) 0.0 07/23/20 17:53: Bedside Glucose (Misc Panel) 85 07/23/20 20:08: Bedside Glucose (Misc Panel) 90 07/24/20 05:15: Immature Granulocyte % (Auto) 0.4, Neutrophils (%) (Auto) 84.4H, Lymphocytes (%) (Auto) 7.8L, Monocytes (%) (Auto) 6.5, Eosinophils (%) (Auto) 0.7, Basophils (%) (Auto) 0.2, Neutrophils # (Auto) 10.8H, Lymphocytes # (Auto) 1.0L, Monocytes # (Auto) 0.8, Eosinophils # (Auto) 0.1, Basophils # (Auto) 0.0, Nucleated Red Blood Cells % (auto) 0.0, Anion Gap 8, Glomerular Filtration Rate 23.8L, Calcium Level 8.2L, Magnesium Level 2.4, Total Bilirubin 0.3, Aspartate Amino Transf (AST/SGOT) 29, Alanine Aminotransferase (ALT/SGPT) 27, Alkaline Phosphatase 225H, Total Protein 5.0L, Albumin 2.3L, Albumin/Globulin Ratio 0.9L 07/24/20 12:43: Bedside Glucose (Misc Panel) 139H CBC/BMP Laboratory Tests 07/23/20 14:45 07/24/20 05:15 Microbiology Microbiology 07/23/20 Blood Culture - Preliminary, Resulted No growth after 24 hours . All specim... 07/23/20 Blood Culture - Preliminary, Resulted No growth after 24 hours . All specim... 07/21/20 Acid Fast Stain, Received Pending 07/21/20 Mycobacterial Culture, Received Pending 07/21/20 Fungal Smear, Received Pending 07/21/20 Fungal Culture, Received Pending 07/21/20 Gram Stain - Final, Complete 07/21/20 Anaerobic Culture - Final, Complete 07/21/20 Body Fluid Culture, Received Pending 07/18/20 Gram Stain - Final, Complete 07/18/20 Anaerobic Culture - Final, Complete 07/18/20 Body Fluid Culture - Final, Complete Staphylococcus Capitis Allergies Coded Allergies: Penicillins (Verified Allergy, Mild, rash, 07/07/20) Home Medications Scheduled Ascorbic Acid (Vitamin C) 500 Mg Tablet, 500 MG PO DAILY, (Reported) Blue-Green Algae (Spirulina) 500 Mg Tablet, 500 MG PO DAILY, (Reported) Cholecalciferol (Vitamin D3) (Vitamin D3) 10 Mcg Capsule, 10 MCG PO DAILY, (Reported) Cyanocobalamin (Vitamin B-12) (Vitamin B-12) 500 Mcg Tablet, 500 MCG PO DAILY, (Reported) Grape Seed Extract (Grape Seed Extract) 50 Mg Capsule, 50 MG PO DAILY, (Reported) Magnesium (Magnesium) 250 Mg Tablet, 250 MG PO QHS, (Reported) Metformin HCl (Metformin ER Gastric) 1,000 Mg [id number], 1,000 MG PO DAILY, (Re ported) Methylsulfonylmethane (Msm) 500 Mg Capsule, 500 MG PO QHS, (Reported) Potassium Gluconate (Potassium) 99 Mg Tablet, 595 MG PO QHS, (Reported) Vitamin B Complex (Vitamin B Complex) 1 Each Tablet, 1 TAB PO DAILY, (Reported) Scheduled PRN Aspirin (Aspirin EC) 81 Mg Tablet.dr, 81 MG PO BID PRN for PAIN, (Reported) Naproxen Sodium (Aleve) 220 Mg Tablet, 220 MG PO BID PRN for PAIN, (Reported) Joanne ALFORD GENERATION TECHNICIAN Jul 24, 2020 13:11
[2020-07-24] MEDS: ENOXAPARIN 30MG/0.3ML SYRINGE (J1650 PER 10MG) SC SCH (14:42)
--- NOTE | 2020-07-24 15:06 | ECGEPIP ---
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
--- NOTE | 2020-07-24 15:24 | IPN ---
PROGRESS NOTE DATE: 07/24/2020 Mrs. Sheikh still feels nauseated today but not as much as she did yesterday. She is awake and alert and will crack a smile for me. Her pain is well controlled at the chest tube insertion site. A little bit too much has come out the chest catheter to remove it, however. Her vital signs show a maximum temperature of 98.6 with a heart rate that ranges between 48-72 in a sinus rhythm, respiratory rate of 16-20 without the use of accessory muscles, who is 91%-93% saturated on 2 liters nasal cannula and whose blood pressure is ranging between 108/54 to 147/66. Her intake and output for the past 24 hours has been recorded as 840 in and 820 out, for a positivity of 20 mL. She has put out 320 mL from the chest tube. Her weight today is 59.4 kg compared to 61.1 kg yesterday. PHYSICAL EXAMINATION: Her lungs actually show nearly normal vesicular sounds without wheezes, rhonchi, or rales. Her cardiac exam is without murmurs, clicks, gallops, or rubs. I cannot feel her point of maximal impulse (PMI). S1 and S2 are normal. Abdomen is soft and nontender. Bowel sounds are positive. There is no hepatomegaly. No costovertebral angle (CVA) tenderness. Extremities show maybe trace pretibial edema, if that. There is no calf tenderness, no differential swelling of the upper extremities. Skin is warm, dry, and perfused without cyanosis or mottling, including that of the nailbeds and knees. Neck is supple. There is no jugular venous distention. No subcutaneous emphysema. Trachea is midline. Mouth shows the mucous membranes to be pink and moist. Lips and commissures without lesions. No thrush. Eyes show her pupils to be equal and reactive. Extraocular motion intact. Sclerae anicteric. Neurologic shows II-XII intact. Normal gross motor, gross sensation intact. Gait is not tested. Psychiatric shows her to be awake, alert, and oriented times three with appropriate mood and affect and conversational. Her white count today is 12.8 with a hemoglobin and hematocrit 8.7 and 27.1, respectively, unchanged from yesterday, with a platelet count of 436 and stable. Differential shows 84% neutrophils, 7% monocytes, 6% lymphocytes. No immature forms or toxic granulations. Her chemistries show a marginally low sodium of 133 with a potassium 4.2. Her total CO2 is normalizing now down to 33, just marginally elevated. BUN and creatinine are 63 and 2.17, up from 59 and 1.83 yesterday. Glucose is 155 with a calcium of 8.2 and an albumin of 2.3. AST and ALT are normal. Her chest x-ray today shows her lung fully expanded to the chest wall. The left costophrenic angle is only slightly blunted. She still has reticular alveolar infiltrates, which are improving, consistent with her pulmonary edema and congestive heart failure. Her cardiac silhouette is now normal. She has what looks to be probable atelectasis on the lateral thumb inferiorly, probably most referable to the right side. IMPRESSION: 1. Congestive heart failure. 2. Pulmonary hypertension. 3. Bilateral pleural effusions, improving. 4. Acute renal injury, continuing. 5. Hypothyroidism. 6. Hypoalbuminemia, improved with albumin infusions, now discontinued. 7. Invasive breast cancer, now with lytic lesions to her bone per Dr. Avila. PLAN AND DISCUSSION: I will continue to ease up on her diuresis, giving her only 40 Lasix a day now. I will hopefully remove the chest catheter tomorrow.
--- NOTE | 2020-07-24 16:33 | IPNPDOC ---
Text Note Date of Service The patient was seen on 07/24/20. NOTE Subjective: Patient patient had a bowel movement in the morning. She continues to complain of weakness, fatigue. I talked to her about recommended treatment for breast cancer, patient told me that she will think about it Objective: GENERAL APPEARANCE: Ill looking female HEENT: no scleral icterus, no JVD, EOMI CARDIOVASCULAR: S1S2 LUNGS: Diminished lung sounds bilaterally, thoracocentesis tube to in place ABDOMEN: soft & not tender w palpitation MUSCULOSKELETAL: Mild pitting edema of lower extremities bilaterally INTEGUMENT: no generalized pallor NEUROLOGICAL: cranial nerve function from 2-12 intact intact, follows commands, speech not dysarthric Assessment and plan Patient is a 70 year old female with DM, hypertension, and renal artery stenosis who presents with bilateral lower extremity edema and found to have hypertensive urgency, acute kidney injury, CHF, and troponin increase. She was then subsequently found to have multiple lytic lesions (skull, thoracic cavity, lumbar spine), right breast cancer, and bilateral pleural effusions. Acute hypoxemic respiratory failure Secondary to pleural effusion secondary to diastolic CHF exacerbation superimposed with possible malignant effusion Echo showed EF 50 to 55% with grade 1 [place] [address] Continue Lasix IV Continue high flow oxygen BNP from 07/16/20 80368 Patient' requirements 30 L Vapotherm FiO2 90% CT showed Enlarging pleural effusions and increasing compressive atelectasis, infiltrates and interstitial edema on 07/18/20 Thoracocentesis was done on 07/18/20 ,pleural fluid transudate. Pleura VAC was placed. I talked to Dr. Henson, he recommended to aspirate no more than 200cc of fluid in one time in order to prevent acute reexpansion of pulmonary edema On 07/18/20 pleural fluid positive for Staphylococcus capitis, most likely contamination. Patient does not have leukocytosis, afebrile. Second set of pleural fluid negative for culture Continue drain pleural fluid. pigtail catheter was placed on 07/22/20 to drain right pleural effusion, 600 mL was drained Pain management On 07/23/20 patient developed leukocytosis with neutrophils 89%, patient afebrile. I started cefepime IV empirically. Chest x-ray showed The left pleural effusion appears slightly larger. The right pleural effusion is unchanged.The left pleural pigtail drainage catheter has been removed. This is unchanged Procalcitonin 0.58 which indicates antibiotic therapy blood culture results on 07/24/20 negative for 24 hours. Leukocytosis improved today to 12.8 Plan to remove chest catheter tomorrow Acute re-expansion pulmonary edema Complication from right thoracentesis on 07/10/2020. Pleural fluid is transudate Continue diuresis with decreased dose of Lasix and metolazone Acute diastolic CHF Echo showed Normal LV size with mild left ventricular hypertrophy (LVH), septal wall motion abnormality related to LBBB and overall left ventricular ejection fraction (LVEF) estimated at 50% to 55%. Grade 1 diastolic dysfunction I's and O's, fluid restriction Continue diuresis 07/22/20 Echo showed left ventricular (LV) diastolic dysfunction with a dilated left atrium with concentric left ventricular hypertrophy and a mildly dilated right ventricle with a very small pericardial effusion posteriorly without compression with an estimated right ventricular systolic pressure of 15 mmHg, ejection fraction of 60% Anemia of chronic diseases Hemoglobin 8.7 No indication for blood transfusion for now Acute kidney injury Stable today, creatinine 2.1 We decreased her dose of Lasix to 40 mg IV daily continue to monitor Type 2 diabetes I increased the dose of detemir to 6 units twice a day for better control glucose level Insulin sliding scale Diabetes diet Breast cancer stage IV pathology report shows breast carcinoma I talked to Dr. Araiza for did consult on 07/09. He will see the patient today Acute urinary retention -will continue Hernandez for accurate I/O's Right renal artery stenosis -Seen on retroperitoneal US on 10/26/2016 Hypertension Norvasc and hydralazine on hold due to intensive diuresis. Blood pressure stable Hypertensive urgency Resolved Elevated troponin Most likely demand ischemia Troponin trended down Gait instability Patient has history of gait instability. MRI spine showed There is diffuse heterogeneous signal intensity of the visualized bone marrow of the lumbar, lower thoracic, and upper sacral spine. This is concerning for metastatic disease. Myeloma is within the differential. Degenerative changes are noted at multiple lumbar and lower thoracic levels, as described above. No significant spinal canal stenosis at any lumbar level. There is no bone marrow compression according to MRI PT/OT Hypothyroidism Continue levothyroxine Right leg swelling/right arm swelling Doppler ultrasound negative for DVT Cachexia Patient stated that her weight decreased around 20 pounds past year She has reduced muscle mass with temporal wasting and low albumin Prescription Clerk assessment Constipation Continue senna, MiraLAX, Dulcolax Palliative care encounter Overall prognosis is poor, yesterday patient denied recommended treatment for breast cancer. Palliative care on board. DVT ppx Lovenox 30 mg subcutaneously VS,Fishbone, I+O VS, Fishbone, I+O Laboratory Tests 07/24/20 05:15 Vital Signs Date Time Temp Pulse Resp B/P (MAP) Pulse Ox O2 Delivery O2 Flow Rate FiO2 07/24/20 16:00 96.8 50 25 131/62 (85) 96 Nasal Cannula 2.0 07/21/20 08:00 90 I&O- Last 24 Hours up to 6 AM 07/24/20 05:59 Intake Total 840 ml Output Total 920 ml Balance -80 ml SB NICE DO Jul 24, 2020 16:33
[2020-07-25] VITALS (12 sets, daily range): BP systolic 122–149; BP diastolic 57–67; O2SAT 99
[2020-07-25] MEDS: NORCO, ANEXSIA 5/325MG TABLET (HYDROcodone/ACETAMINOPHEN) PO PRN (00:10)
[2020-07-25] MEDS: LEVALBUTEROL 1.25 MG/0.5 ML CONCENTRATE NEB NEB SCH ×4 (01:05→20:07)
[2020-07-25] MEDS: SLF 3 ML SYR IV SCH ×3 (05:22→21:27)
[2020-07-25 05:40] LABS: BASO % 0.4 % (0.0-1.0); EOS # 0.1 10^3/uL (0.0-0.5); EOS % 1.2 % (0.0-3.0); HEMATOCRIT 24.9 % (36.0-47.0); HEMOGLOBIN 8.1 g/dl (12.0-15.5); LYMPH % 9.3 % (24.0-44.0); MEAN CORPUSCULAR HEMOGLOBIN 29.8 pg (27.0-33.0); MEAN CORPUSCULAR HGB CONC 32.5 g/dl (32.0-36.5); MEAN CORPUSCULAR VOLUME 91.5 fl (80.0-96.0); MONO # 0.9 10^3/uL (0.0-0.8); NEUTROPHILS # 8.5 10^3/uL (1.5-8.5); NEUTROPHILS % 80.4 % (36.0-66.0); PLATELET COUNT, AUTOMATED 478 10^3/uL (150-450); RED BLOOD COUNT 2.72 10^6/uL (4.00-5.40); WHITE BLOOD COUNT 10.6 10^3/uL (4.0-10.0)
[2020-07-25 06:01] LABS: BILIRUBIN,TOTAL 0.3 MG/DL (0.2-1.0); CALCIUM LEVEL 7.9 MG/DL (8.8-10.2); CREATININE FOR GFR 2.53 MG/DL (0.55-1.30); GLOMERULAR FILTRATION RATE 19.9 (>39); MAGNESIUM LEVEL 2.6 MG/DL (1.8-2.4); POTASSIUM SERUM 4.7 MEQ/L (3.5-5.1); TOTAL PROTEIN 4.9 GM/DL (6.4-8.2)
[2020-07-25] MEDS: LEVALBUTEROL 1.25 MG/0.5 ML CONCENTRATE NEB NEB PRN (06:14)
[2020-07-25] MEDS: LEVOTHYROXINE 75MCG TABLET (0.075MG) PO SCH (06:35)
--- NOTE | 2020-07-25 10:18 | REP ---
INDICATION: pleural effusios, CHF. COMPARISON: 07/23/2020 and 07/24/2020 TECHNIQUE: Upright PA and lateral chest. FINDINGS: There are bilateral pleural effusions. There is a pleural pigtail drainage catheter posteriorly inferiorly on the right, unchanged. The right pleural effusion has decreased in size from 07/23/2020 but is unchanged from 07/24/2020. The left pleural effusion is unchanged from both prior studies. The remainder of the lung fuentes are clear. Cardiac size is normal. The monika, mediastinum, and skeletal structures are unchanged. IMPRESSION: Bilateral pleural effusions and right pigtail pleural drainage catheter as described above. <Electronically signed by Stephane Valentino > 07/25/20 1010
[2020-07-25] MEDS: POTASSIUM CHLORIDE 10 MEQ SR TABLET PO SCH (10:37)
[2020-07-25] MEDS: HumaLOG INSULIN (NovoLOG) PER UNIT SC SCH ×5 (10:37→21:30)
[2020-07-25] MEDS: ASCORBIC ACID 500 MG TAB PO SCH (10:38)
[2020-07-25] MEDS: guaiFENesin ER 600 MG TAB PO SCH ×2 (10:38→21:27)
[2020-07-25] MEDS: metOLazone 5 MG TAB PO SCH (10:38)
[2020-07-25] MEDS: ONDANSETRON 4MG/2ML VIAL IV PRN (10:38)
[2020-07-25] MEDS: CYANOCOBALAMIN 500 MCG TAB PO SCH (10:39)
[2020-07-25] MEDS: IRON POLYSAC (NIFEREX) 150 MG CAP PO SCH ×2 (10:39→21:27)
--- NOTE | 2020-07-25 10:44 | ECGEPIP ---
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 LA conduction disturbance? Right bundle branch block Prominent right precordial R waves; consider RIGHT VENTRICULAR HYPERTROPHY versus prior posterior wall HI. No significant change from 07/24/20. Electronically Signed on 07-25-2020 10:43:59 EDT by Jj Kim
[2020-07-25] MEDS: FUROSEMIDE 40MG/4ML VIAL (J1940) IV SCH (10:54)
[2020-07-25] MEDS: LEVEMIR (INSULIN DETEMIR) 1 UNITS/0.01ML SC SCH ×2 (10:54→21:26)
[2020-07-25] MEDS: CEFEPIME HCL 2 GM in D5W MINI-BAG PLUS 50 ML IV SCH (10:54)
--- NOTE | 2020-07-25 11:13 | IPN ---
PROGRESS NOTE DATE: 07/25/2020 SUBJECTIVE: Mrs. Sheikh is still feeling rather weak and nauseated. Her renal function is getting worse no doubt secondary to the aggressive diuresis. She is to be transfused blood today for volume and anemia. OBJECTIVE: VITAL SIGNS: Show a T-max of 98.6 with a heart rate that ranges between 45 and 56 in sinus rhythm. Respiratory rate of 18 to 20 without the use of accessory muscles who is 91% to 92% saturated now on 3 liters nasal cannula and whose blood pressure is ranging between 138/53 to 123/59. INTAKE AND OUTPUT: Over the past 24 hours has been recorded as 860 in and 825 out for near equality. She has put out 225 mL out the chest tube and there is no air leak. Her weight today is up to 61.1 kg up from 59.4 kg yesterday. RESPIRATORY: Her lungs show transmitted bronchophony in the right lower hemithorax. Percussion note is dull at the very base of the right hemithorax. The left side shows some scattered rales and rhonchi during inspiration. Percussion notes are full to the diaphragm. CARDIAC: Without murmurs, clicks, gallops, or rubs. I cannot feel her PMI. S1 and S2 are normal. ABDOMEN: Soft and nontender. Bowel sounds are positive. There is no hepatomegaly. No CVA tenderness. EXTREMITIES: Show maybe trace pretibial edema. No calf tenderness. No differential swelling of the upper extremities. SKIN: Warm, dry, and perfused without cyanosis or mottling, including that of the nail beds and knees. NECK: Supple. There is no jugular venous distention. No subcutaneous emphysema. Trachea is midline. MOUTH: Shows the mucous membranes to be pink and moist. Lips and commisures are without lesions and no thrush. EYES: Show her pupils equal and reactive. Extraocular muscles are intact. Sclerae nonicteric. NEUROLOGIC: Shows II through XII intact. Normal gross motor, gross sensation intact. Gait is not tested. PSYCHIATRIC: Shows her to have a depressed affect, but I can bring her out of it with conversation and in fact can get a few smiles out of her. She is awake, alert, and oriented x3. LABORATORY DATA: Her white count today is 10.6 with a hemoglobin and hematocrit of 8.1 and 24.9 down from 8.7 and 27.1. Platelet count 478,000 and stable and differential shows 18% neutrophils, 9% lymphocytes, and 8% monocytes. There are no immature forms and no toxic granulations. Her electrolytes show a marginally low sodium of 131 with a BUN and creatinine, however, of 71 and 2.53 up from 63 and 2.17 yesterday. Glucose is 180 with a calcium of 7.9. Albumin is down to 2.0 after stopping albumin infusions. AST and ALT are normal. IMAGING DATA: Her chest x-ray today shows more blunting of the right costophrenic angle on the PA film. I do not see fluid on the lateral film. The left costophrenic angle is very sharp. I see no overt infiltrates and the atelectasis on the lateral film is improving. IMPRESSION: 1. Congestive heart failure. 2. Pulmonary hypertension. 3. Bilateral pleural effusions. 4. Acute renal injury continuing. 5. Hypothyroidism. 6. Hypoalbuminemia. 7. Invasive breast cancer with metastatic disease to her bone. PLAN AND DISCUSSION: I will discontinue her chest catheter on the left side today. I have been told by her primary care physician that she is refusing oncologic intervention. However, when I speak to her this morning, she is certainly open to at least hormonal therapy. She is just feeling so miserable because she is nauseated and I have asked her not to make any irrevocable decisions until she starts to feel better. Her nausea is probably secondary to her renal insufficiency and diuresis. It should pass and she should feel a bit better.
[2020-07-25] MEDS: ENOXAPARIN 30MG/0.3ML SYRINGE (J1650 PER 10MG) SC SCH ×2 (13:19→13:24)
[2020-07-25] MEDS ORDERED: PERCOCET 5MG/325MG TAB PO PRN (15:15)
--- NOTE | 2020-07-25 15:42 | IPNPDOC ---
Text Note Date of Service The patient was seen on 07/25/20. NOTE Subjective: Patient continues to have nausea in the morning. I discussed with her possible treatment for cancer and patient agreed to discuss it with oncologist Objective: GENERAL APPEARANCE: Ill looking female HEENT: no scleral icterus, no JVD, EOMI CARDIOVASCULAR: S1S2 LUNGS: Diminished lung sounds bilaterally, thoracocentesis tube to in place ABDOMEN: soft & not tender w palpitation MUSCULOSKELETAL: No cyanosis, no swelling INTEGUMENT: no generalized pallor NEUROLOGICAL: cranial nerve function from 2-12 intact intact, follows commands, speech not dysarthric Assessment and plan Patient is a 70 year old female with DM, hypertension, and renal artery stenosis who presents with bilateral lower extremity edema and found to have hypertensive urgency, acute kidney injury, CHF, and troponin increase. She was then subsequently found to have multiple lytic lesions (skull, thoracic cavity, lumbar spine), right breast cancer, and bilateral pleural effusions. Acute hypoxemic respiratory failure Secondary to pleural effusion secondary to diastolic CHF exacerbation superimposed with possible malignant effusion Echo showed EF 50 to 55% with grade 1 [place] [address] Continue Lasix IV Continue high flow oxygen BNP from 07/16/20 32365 Patient' requirements 30 L Vapotherm FiO2 90% CT showed Enlarging pleural effusions and increasing compressive atelectasis, infiltrates and interstitial edema on 07/18/20 Thoracocentesis was done on 07/18/20 ,pleural fluid transudate. Pleura VAC was placed. I talked to Dr. Henson, he recommended to aspirate no more than 200cc of fluid in one time in order to prevent acute reexpansion of pulmonary edema On 07/18/20 pleural fluid positive for Staphylococcus capitis, most likely contamination. Patient does not have leukocytosis, afebrile. Second set of pleural fluid negative for culture Continue drain pleural fluid. pigtail catheter was placed on 07/22/20 to drain right pleural effusion, 600 mL was drained Pain management On 07/23/20 patient developed leukocytosis with neutrophils 89%, patient afebrile. I started cefepime IV empirically. Chest x-ray showed The left pleural effusion appears slightly larger. The right pleural effusion is unchanged.The left pleural pigtail drainage catheter has been removed. This is unchanged Procalcitonin 0.58 which indicates antibiotic therapy blood culture results on 07/24/20 negative for 24 hours. Leukocytosis improved to 10.6 On 07/25/20 chest catheter was removed on the left side. Procalcitonin 0.86 Continue cefepime Acute re-expansion pulmonary edema Complication from right thoracentesis on 07/10/2020. Pleural fluid is transudate Continue diuresis with decreased dose of Lasix, DC metolazone Acute diastolic CHF Echo showed Normal LV size with mild left ventricular hypertrophy (LVH), septal wall motion abnormality related to LBBB and overall left ventricular ejection fraction (LVEF) estimated at 50% to 55%. Grade 1 diastolic dysfunction I's and O's, fluid restriction 07/22/20 Echo showed left ventricular (LV) diastolic dysfunction with a dilated left atrium with concentric left ventricular hypertrophy and a mildly dilated right ventricle with a very small pericardial effusion posteriorly without compression with an estimated right ventricular systolic pressure of 15 mmHg, ejection fraction of 60% Anemia of chronic diseases Hemoglobin 8.1 Will transfuse 1 unit of blood on 07/25/20 stool for occult blood negative Acute kidney injury Worsening today most likely secondary to intensive diuresis. Metolazone on hold We decreased her dose of Lasix to 40 mg IV daily continue to monitor Type 2 diabetes I increased the dose of detemir to 6 units twice a day for better control glucose level Insulin sliding scale Diabetes diet Breast cancer stage IV pathology report shows breast carcinoma Today I talked to Dr. Araiza for did consult on 07/09, I told him that patient agree to start treatment with aromatase inhibitors. Oncology team recommended to start treatment in the outpatient settings Acute urinary retention -will continue Hernandez for accurate I/O's Right renal artery stenosis -Seen on retroperitoneal US on 10/26/2016 Hypertension Norvasc and hydralazine on hold due to intensive diuresis. Blood pressure stable Hypertensive urgency Resolved Elevated troponin Most likely demand ischemia Troponin trended down Gait instability Patient has history of gait instability. MRI spine showed There is diffuse heterogeneous signal intensity of the visualized bone marrow of the lumbar, lower thoracic, and upper sacral spine. This is concerning for metastatic disease. Myeloma is within the differential. Degenerative changes are noted at multiple lumbar and lower thoracic levels, as described above. No significant spinal canal stenosis at any lumbar level. 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 DVT ppx Lovenox 30 mg subcutaneously VS,Fishbone, I+O VS, Fishbone, I+O Laboratory Tests 07/25/20 04:52 Vital Signs Date Time Temp Pulse Resp B/P (MAP) Pulse Ox O2 Delivery O2 Flow Rate FiO2 07/25/20 12:00 97.8 52 16 142/65 (90) 96 Nasal Cannula 3.0 07/21/20 08:00 90 I&O- Last 24 Hours up to 6 AM 07/25/20 06:00 Intake Total 860 ml Output Total 670 ml Balance 190 ml SB NICE DO Jul 25, 2020 15:42
[2020-07-25] MEDS: ACETAMINOPHEN TAB 650MG DOSE (2X325MG) PO PRN (16:13)
--- NOTE | 2020-07-25 17:49 | IPNPDOC ---
Date Seen The patient was seen on 07/25/20. Progress Note SUBJECTIVE: The patient was seen in the room on the inpatient floor at the same time as her son was present. This morning I got a call from the attending physician who indicated that the recommendation of starting an aromatase inhibitor is an outpatient issue. In the meantime the patient seems to be doing better as the chest tubes are out. The treatment of hormone receptor breast cancer in her is a long process and it takes a very long time to get the disease under control and that it occurs slowly. In addition because of her bone disease she will need in the outpatient setting consideration of either a bisphosphonate or Xgeva which would be a safer option given the fact that she has had renal damage recently. The side effects of the medications were explained to the patient and mainly to the son as the patient herself was in bed tired. Side effects include and are not limited to hot flashes, osteopenia and occasionally severe aches and pains. When she is discharged she should be seen in our clinic and an outpatient prescription for either letrozole or Arimidex can be given as the they are equivalent. Will discuss this with the attending as she continues on recovery in the hospital. Enough time was given wants of any questions and concerns VS, I&O, 24H, Fishbone Vital Signs/I&O Vital Signs Date Time Temp Pulse Resp B/P (MAP) Pulse Ox O2 Delivery O2 Flow Rate FiO2 07/25/20 15:35 97.9 48 20 147/67 95 Nasal Cannula 2.0 07/21/20 08:00 90 I&O- Last 24 Hours up to 6 AM 07/25/20 06:00 Intake Total 860 ml Output Total 670 ml Balance 190 ml Laboratory Data 24H LABS Laboratory Tests 2 07/24/20 19:59: Bedside Glucose (Misc Panel) 217H 07/25/20 04:52: Immature Granulocyte % (Auto) 0.7, Neutrophils (%) (Auto) 80.4H, Lymphocytes (%) (Auto) 9.3L, Monocytes (%) (Auto) 8.0, Eosinophils (%) (Auto) 1.2, Basophils (%) (Auto) 0.4, Neutrophils # (Auto) 8.5, Lymphocytes # (Auto) 1.0L, Monocytes # (Auto) 0.9H, Eosinophils # (Auto) 0.1, Basophils # (Auto) 0.0, Nucleated Red Blood Cells % (auto) 0.0, Anion Gap 7L, Glomerular Filtration Rate 19.9L, Calcium Level 7.9L, Magnesium Level 2.6H, Total Bilirubin 0.3, Aspartate Amino Transf (AST/SGOT) 18, Alanine Aminotransferase (ALT/SGPT) 24, Alkaline Phosp hatase 249H, Total Protein 4.9L, Albumin 2.0L, Albumin/Globulin Ratio 0.7L 07/25/20 07:54: Procalcitonin 0.86 07/25/20 11:47: Bedside Glucose (Misc Panel) 267H 07/25/20 16:51: Bedside Glucose (Misc Panel) 382H CBC/BMP Laboratory Tests 07/25/20 04:52 Microbiology Microbiology 07/25/20 Stool Occult Blood (CARINA) - Final, Complete 07/23/20 Blood Culture - Preliminary, Resulted No Growth after 48 hours. All Specime... 07/23/20 Blood Culture - Preliminary, Resulted No Growth after 48 hours. All Specime... 07/21/20 Acid Fast Stain, Received Pending 07/21/20 Mycobacterial Culture, Received Pending 07/21/20 Fungal Smear, Received Pending 07/21/20 Fungal Culture, Received Pending 07/21/20 Gram Stain - Final, Complete 07/21/20 Anaerobic Culture - Final, Complete 07/21/20 Body Fluid Culture - Final, Complete Staphylococcus Epidermidis 07/18/20 Gram Stain - Final, Complete 07/18/20 Anaerobic Culture - Final, Complete 07/18/20 Body Fluid Culture - Final, Complete Staphylococcus Capitis BETINA OSMAN MDFRCP Jul 25, 2020 17:49
[2020-07-25 19:20] LABS: HEMATOCRIT 28.9 % (36.0-47.0); HEMOGLOBIN 9.7 g/dl (12.0-15.5)
[2020-07-25 23:11] LABS: HEMATOCRIT 28.4 % (36.0-47.0); HEMOGLOBIN 9.2 g/dl (12.0-15.5)
[2020-07-26] VITALS: BP 118/57
[2020-07-26] MEDS: LEVALBUTEROL 1.25 MG/0.5 ML CONCENTRATE NEB NEB SCH ×4 (01:17→20:00)
[2020-07-26 04:00] VITALS: BP 115/55
[2020-07-26] MEDS: SLF 3 ML SYR IV SCH ×3 (05:06→21:06)
[2020-07-26] MEDS: LEVOTHYROXINE 75MCG TABLET (0.075MG) PO SCH ×2 (05:22→05:25)
[2020-07-26 05:24] LABS: BASO # 0.1 10^3/uL (0.0-0.2); BASO % 0.5 % (0.0-1.0); EOS # 0.1 10^3/uL (0.0-0.5); EOS % 1.5 % (0.0-3.0); HEMATOCRIT 28.9 % (36.0-47.0); HEMOGLOBIN 9.6 g/dl (12.0-15.5); LYMPH % 10.9 % (24.0-44.0); MEAN CORPUSCULAR HGB CONC 33.2 g/dl (32.0-36.5); MEAN CORPUSCULAR VOLUME 90.3 fl (80.0-96.0); MONO # 0.8 10^3/uL (0.0-0.8); MONO % 8.8 % (2.0-8.0); NEUTROPHILS # 7.4 10^3/uL (1.5-8.5); NEUTROPHILS % 77.7 % (36.0-66.0); PLATELET COUNT, AUTOMATED 512 10^3/uL (150-450); WHITE BLOOD COUNT 9.6 10^3/uL (4.0-10.0)
[2020-07-26] MEDS: PROCHLORPERAZINE 5 MG TAB (S0183) PO PRN ×2 (05:47→17:09)
[2020-07-26 05:54] LABS: ALBUMIN 1.7 GM/DL (3.2-5.2); BILIRUBIN,TOTAL 0.3 MG/DL (0.2-1.0); CALCIUM LEVEL 8.1 MG/DL (8.8-10.2); CREATININE FOR GFR 2.71 MG/DL (0.55-1.30); GLOMERULAR FILTRATION RATE 18.4 (>39); MAGNESIUM LEVEL 2.7 MG/DL (1.8-2.4); POTASSIUM SERUM 4.1 MEQ/L (3.5-5.1); TOTAL PROTEIN 5.4 GM/DL (6.4-8.2)
[2020-07-26 08:00] VITALS: BP 145/67
[2020-07-26] MEDS ORDERED: CEFEPIME HCL 1 GM in D5W MINI-BAG PLUS 50 ML IV SCH (08:00)
[2020-07-26 08:33] LABS: C REACTIVE PROTEIN QUANTITATIV 11.1 MG/DL (0.00-0.30)
--- NOTE | 2020-07-26 08:47 | REP ---
INDICATION: pleural effusions, CHF COMPARISON: 07/25/2020. TECHNIQUE: AP and lateral. FINDINGS: There is mild cardiomegaly. Vascular congestion appears increased compared to the prior exam. There are increasing pleural effusions bilaterally, left greater than right. Dependent parenchymal opacities have also increased.. IMPRESSION: Mild cardiomegaly. Increasing vascular congestion, bilateral effusions and bibasilar infiltrates, suggesting worsening CHF and pulmonary edema. <Electronically signed by Stephane Vargas > 07/26/20 0834
[2020-07-26] MEDS: METOCLOPRAMIDE INJ 10MG/2ML VIAL (J2765 PER 1) IV PRN (09:10)
[2020-07-26] MEDS: FUROSEMIDE 40MG/4ML VIAL (J1940) IV SCH (09:10)
[2020-07-26] MEDS: HumaLOG INSULIN (NovoLOG) PER UNIT SC SCH ×4 (09:10→20:47)
[2020-07-26] MEDS: IRON POLYSAC (NIFEREX) 150 MG CAP PO SCH ×2 (09:11→20:46)
[2020-07-26] MEDS: ASCORBIC ACID 500 MG TAB PO SCH (09:11)
[2020-07-26] MEDS: CYANOCOBALAMIN 500 MCG TAB PO SCH (09:11)
[2020-07-26] MEDS: LEVEMIR (INSULIN DETEMIR) 1 UNITS/0.01ML SC SCH ×2 (09:11→20:47)
[2020-07-26] MEDS: POTASSIUM CHLORIDE 10 MEQ SR TABLET PO SCH (09:11)
[2020-07-26] MEDS: guaiFENesin ER 600 MG TAB PO SCH ×2 (09:11→20:46)
[2020-07-26 11:53] LABS: HEMATOCRIT 29.3 % (36.0-47.0); HEMOGLOBIN 9.7 g/dl (12.0-15.5)
[2020-07-26 12:00] VITALS: BP 150/67
[2020-07-26] MEDS: ENOXAPARIN 30MG/0.3ML SYRINGE (J1650 PER 10MG) SC SCH (13:46)
--- NOTE | 2020-07-26 15:23 | IPNPDOC ---
Text Note Date of Service The patient was seen on 07/26/20. NOTE Subjective: Patient continues to have nausea in the morning stated that she has a low energy and she extremely tired Objective: GENERAL APPEARANCE: Ill looking female HEENT: no scleral icterus, no JVD, EOMI CARDIOVASCULAR: S1S2 LUNGS: Diminished lung sounds bilaterally, thoracocentesis tube to in place ABDOMEN: soft & not tender w palpitation MUSCULOSKELETAL: No cyanosis, no swelling INTEGUMENT: no generalized pallor NEUROLOGICAL: cranial nerve function from 2-12 intact intact, follows commands, speech not dysarthric Assessment and plan Patient is a 70 year old female with DM, hypertension, and renal artery stenosis who presents with bilateral lower extremity edema and found to have hypertensive urgency, acute kidney injury, CHF, and troponin increase. She was then subsequently found to have multiple lytic lesions (skull, thoracic cavity, lumbar spine), right breast cancer, and bilateral pleural effusions. Acute hypoxemic respiratory failure Secondary to pleural effusion secondary to diastolic CHF exacerbation superimposed with possible malignant effusion Echo showed EF 50 to 55% with grade 1 [place] [address] Continue Lasix IV Continue high flow oxygen BNP from 07/16/20 26572 Patient' requirements 30 L Vapotherm FiO2 90% CT showed Enlarging pleural effusions and increasing compressive atelectasis, infiltrates and interstitial edema on 07/18/20 Thoracocentesis was done on 07/18/20 ,pleural fluid transudate. Pleura VAC was placed. I talked to Dr. Henson, he recommended to aspirate no more than 200cc of fluid in one time in order to prevent acute reexpansion of pulmonary edema On 07/18/20 pleural fluid positive for Staphylococcus capitis, most likely contamination. Patient does not have leukocytosis, afebrile. Second set of pleural fluid negative for culture Continue drain pleural fluid. pigtail catheter was placed on 07/22/20 to drain right pleural effusion, 600 mL was drained Pain management On 07/23/20 patient developed leukocytosis with neutrophils 89%, patient afebrile. I started cefepime IV empirically. Chest x-ray showed The left pleural effusion appears slightly larger. The right pleural effusion is unchanged.The left pleural pigtail drainage catheter has been removed. This is unchanged Procalcitonin 0.58 which indicates antibiotic therapy blood culture results on 07/24/20 negative for 24 hours. Leukocytosis improved to 10.6 On 07/25/20 chest catheter was removed on the left and right side. Procalcitonin 0.86 On 07/26/20 patient afebrile, no leukocytosis. I discontinued cefepime Acute re-expansion pulmonary edema Complication from right thoracentesis on 07/10/2020. Pleural fluid is transudate Continue diuresis with decreased dose of Lasix, DC metolazone Acute diastolic CHF Echo showed Normal LV size with mild left ventricular hypertrophy (LVH), septal wall motion abnormality related to LBBB and overall left ventricular ejection fraction (LVEF) estimated at 50% to 55%. Grade 1 diastolic dysfunction I's and O's, fluid restriction 07/22/20 Echo showed left ventricular (LV) diastolic dysfunction with a dilated left atrium with concentric left ventricular hypertrophy and a mildly dilated right ventricle with a very small pericardial effusion posteriorly without compression with an estimated right ventricular systolic pressure of 15 mmHg, ejection fraction of 60% Anemia of chronic diseases Hemoglobin 9.7 Status post transfusion of 1 unit of blood on 07/25/20 stool for occult blood negative Acute kidney injury Worsening today most likely secondary to intensive diuresis. Metolazone on hold We decreased her dose of Lasix to 40 mg IV daily continue to monitor Type 2 diabetes I increased the dose of detemir to 6 units twice a day for better control glucose level Insulin sliding scale Diabetes diet Breast cancer stage IV pathology report shows breast carcinoma Today I talked to Dr. Araiza for did consult on 07/09, I told him that patient agree to start treatment with aromatase inhibitors. Oncology team recommended to start treatment in the outpatient settings Acute urinary retention -will continue Hernandez for accurate I/O's Right renal artery stenosis -Seen on retroperitoneal US on 10/26/2016 Hypertension Norvasc and hydralazine on hold due to intensive diuresis. Blood pressure stable Hypertensive urgency Resolved Elevated troponin Most likely demand ischemia Troponin trended down Gait instability Patient has history of gait instability. MRI spine showed There is diffuse heterogeneous signal intensity of the visualized bone marrow of the lumbar, lower thoracic, and upper sacral spine. This is concerning for metastatic disease. Myeloma is within the differential. Degenerative changes are noted at multiple lumbar and lower thoracic levels, as described above. No significant spinal canal stenosis at any lumbar level. There is no bone marrow compression according to MRI PT/OT Hypothyroidism Continue levothyroxine Right leg swelling/right arm swelling Doppler ultrasound negative for DVT Cachexia Patient stated that her weight decreased around 20 pounds past year She has reduced muscle mass with temporal wasting and low albumin Admissions Assistant assessment Constipation Continue senna, MiraLAX, Dulcolax Persistent nausea/vomiting Multifactorial, could be attributed to pain medications, malignancy, kidney failure I intensified nausea medication regimen, added prochlorperazine IV, increase interval between pain medication Continue to monitor QTC prolongation on EKG Palliative care encounter Overall prognosis is poor Palliative care on board. DVT ppx Lovenox 30 mg subcutaneously VS,Fishbone, I+O VS, Fishbone, I+O Laboratory Tests 07/25/20 19:06 07/25/20 23:04 07/26/20 04:53 07/26/20 11:28 Vital Signs Date Time Temp Pulse Resp B/P (MAP) Pulse Ox O2 Delivery O2 Flow Rate FiO2 07/26/20 12:00 97.6 54 20 150/67 (94) 94 Nasal Cannula 3.0 07/21/20 08:00 90 I&O- Last 24 Hours up to 6 AM 07/26/20 06:00 Intake Total 890 ml Output Total 900 ml Balance -10 ml SB NICE DO Jul 26, 2020 15:23
[2020-07-26 16:00] VITALS: BP 131/63
[2020-07-26 17:12] LABS: HEMATOCRIT 30.1 % (36.0-47.0); HEMOGLOBIN 9.8 g/dl (12.0-15.5)
[2020-07-26 20:00] VITALS: BP 135/63
[2020-07-26] MEDS: ONDANSETRON 4MG/2ML VIAL IV PRN (20:46)
[2020-07-26] MEDS: FLUoxetine 10 MG CAP PO SCH (20:46)
[2020-07-26] MEDS: MIRALAX *UNIT DOSE* 17GM PACKET PO PRN (21:26)
[2020-07-26] MEDS: DOCUSATE SODIUM 100MG CAPSULE PO PRN (21:26)
[2020-07-27] VITALS (8 sets, daily range): BP systolic 117–141; BP diastolic 55–64; O2SAT 96
[2020-07-27] MEDS: LEVALBUTEROL 1.25 MG/0.5 ML CONCENTRATE NEB NEB SCH ×4 (01:30→20:00)
[2020-07-27 05:33] LABS: BASO % 0.4 % (0.0-1.0); EOS # 0.2 10^3/uL (0.0-0.5); EOS % 1.8 % (0.0-3.0); HEMATOCRIT 30.2 % (36.0-47.0); HEMOGLOBIN 9.8 g/dl (12.0-15.5); LYMPH # 0.9 10^3/uL (1.5-5.0); LYMPH % 8.1 % (24.0-44.0); MEAN CORPUSCULAR HEMOGLOBIN 28.9 pg (27.0-33.0); MEAN CORPUSCULAR HGB CONC 32.5 g/dl (32.0-36.5); MEAN CORPUSCULAR VOLUME 89.1 fl (80.0-96.0); MONO % 9.5 % (2.0-8.0); NEUTROPHILS # 8.4 10^3/uL (1.5-8.5); NEUTROPHILS % 79.3 % (36.0-66.0); PLATELET COUNT, AUTOMATED 566 10^3/uL (150-450); RED BLOOD COUNT 3.39 10^6/uL (4.00-5.40); WHITE BLOOD COUNT 10.6 10^3/uL (4.0-10.0)
[2020-07-27 05:56] LABS: ALBUMIN 1.7 GM/DL (3.2-5.2); BILIRUBIN,TOTAL 0.2 MG/DL (0.2-1.0); CALCIUM LEVEL 8.3 MG/DL (8.8-10.2); CREATININE FOR GFR 2.46 MG/DL (0.55-1.30); GLOMERULAR FILTRATION RATE 20.6 (>39); MAGNESIUM LEVEL 2.9 MG/DL (1.8-2.4); TOTAL PROTEIN 5.4 GM/DL (6.4-8.2)
[2020-07-27] MEDS: SLF 3 ML SYR IV SCH ×3 (06:15→22:00)
[2020-07-27] MEDS: LEVOTHYROXINE 75MCG TABLET (0.075MG) PO SCH (06:20)
[2020-07-27] MEDS: FUROSEMIDE 40MG/4ML VIAL (J1940) IV SCH (08:30)
[2020-07-27] MEDS: LEVEMIR (INSULIN DETEMIR) 1 UNITS/0.01ML SC SCH ×2 (08:30→21:01)
[2020-07-27] MEDS: PROCHLORPERAZINE 5 MG TAB (S0183) PO PRN (10:00)
[2020-07-27] MEDS: HumaLOG INSULIN (NovoLOG) PER UNIT SC SCH ×4 (10:19→21:01)
--- NOTE | 2020-07-27 11:44 | IPNPDOC ---
Text Note Date of Service The patient was seen on 07/27/20. NOTE Subjective: Patient looks depressed and c/o low energy, poor appetite and bad dreams. Objective: GENERAL APPEARANCE: Ill looking female HEENT: no scleral icterus, no JVD, EOMI CARDIOVASCULAR: S1S2 LUNGS: Diminished lung sounds bilaterally, thoracocentesis tube to in place ABDOMEN: soft & not tender w palpitation MUSCULOSKELETAL: No cyanosis, no swelling INTEGUMENT: no generalized pallor NEUROLOGICAL: cranial nerve function from 2-12 intact intact, follows commands, speech not dysarthric Assessment and plan Patient is a 70 year old female with DM, hypertension, and renal artery stenosis who presents with bilateral lower extremity edema and found to have hypertensive urgency, acute kidney injury, CHF, and troponin increase. She was then subsequently found to have multiple lytic lesions (skull, thoracic cavity, lumbar spine), right breast cancer, and bilateral pleural effusions. Acute hypoxemic respiratory failure Secondary to pleural effusion secondary to diastolic CHF exacerbation superimposed with possible malignant effusion Echo showed EF 50 to 55% with grade 1 [place] [address] Continue Lasix IV Continue high flow oxygen BNP from 07/16/20 29312 Patient' requirements 30 L Vapotherm FiO2 90% CT showed Enlarging pleural effusions and increasing compressive atelectasis, infiltrates and interstitial edema on 07/18/20 Thoracocentesis was done on 07/18/20 ,pleural fluid transudate. Pleura VAC was placed. I talked to Dr. Henson, he recommended to aspirate no more than 200cc of fluid in one time in order to prevent acute reexpansion of pulmonary edema On 07/18/20 pleural fluid positive for Staphylococcus capitis, most likely contamination. Patient does not have leukocytosis, afebrile. Second set of pleural fluid negative for culture Continue drain pleural fluid. pigtail catheter was placed on 07/22/20 to drain right pleural effusion, 600 mL was drained Pain management On 07/23/20 patient developed leukocytosis with neutrophils 89%, patient afebrile. I started cefepime IV empirically. Chest x-ray showed The left pleural effusion appears slightly larger. The right pleural effusion is unchanged.The left pleur al pigtail drainage catheter has been removed. This is unchanged Procalcitonin 0.58 which indicates antibiotic therapy blood culture results on 07/24/20 negative for 24 hours. Leukocytosis improved to 10.6 On 07/25/20 chest catheter was removed on the left side and right-side Procalcitonin 0.86 On 07/26/20 patient afebrile, no leukocytosis. I discontinued cefepime Pt's oxygen requirements 3 L via nasal cannula Acute re-expansion pulmonary edema Complication from right thoracentesis on 07/10/2020. Pleural fluid is transudate Continue diuresis with decreased dose of Lasix, DC metolazone Acute diastolic CHF Echo showed Normal LV size with mild left ventricular hypertrophy (LVH), septal wall motion abnormality related to LBBB and overall left ventricular ejection fraction (LVEF) estimated at 50% to 55%. Grade 1 diastolic dysfunction I's and O's, fluid restriction 07/22/20 Echo showed left ventricular (LV) diastolic dysfunction with a dilated left atrium with concentric left ventricular hypertrophy and a mildly dilated right ventricle with a very small pericardial effusion posteriorly without compression with an estimated right ventricular systolic pressure of 15 mmHg, ejection fraction of 60% Anemia of chronic diseases Hemoglobin stable Status post transfusion of 1 unit of blood on 07/25/20 stool for occult blood negative Acute kidney injury Improved today, creatinine 2.4 We decreased her dose of Lasix to 40 mg IV daily continue to monitor Type 2 diabetes I increased the dose of detemir to 6 units twice a day for better control glucose level Insulin sliding scale Diabetes diet Breast cancer stage IV pathology report shows breast carcinoma Today I talked to Dr. Araiza for did consult on 07/09, I told him that patient agree to start treatment with aromatase inhibitors. Oncology team recommended to start treatment in the outpatient settings Acute urinary retention -will continue Hernandez for accurate I/O's Right renal artery stenosis -Seen on retroperitoneal US on 10/26/2016 Hypertension Norvasc and hydralazine on hold due to intensive diuresis. Blood pressure stable Hypertensive urgency Resolved Elevated troponin Most likely demand ischemia Troponin trended down Gait instability Patient has history of gait instability. MRI spine showed There is diffuse heterogeneous signal intensity of the visualized bone marrow of the lumbar, lower thoracic, and upper sacral spine. This is concerning for metastatic disease. Myeloma is within the differential. Degener ative changes are noted at multiple lumbar and lower thoracic levels, as described above. No significant spinal canal stenosis at any lumbar level. 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 Depression I started fluoxetine yesterday. DVT ppx Lovenox 30 mg subcutaneously VS,Fishbone, I+O VS, Fishbone, I+O Laboratory Tests 07/26/20 16:51 07/27/20 05:18 Vital Signs Date Time Temp Pulse Resp B/P (MAP) Pulse Ox O2 Delivery O2 Flow Rate FiO2 07/27/20 08:00 97.6 57 17 136/62 (86) 94 Nasal Cannula 3.0 07/21/20 08:00 90 I&O- Last 24 Hours up to 6 AM 07/27/20 06:00 Intake Total 1230 ml Output Total 1370 ml Balance -140 ml SB NICE DO Jul 27, 2020 11:44
--- NOTE | 2020-07-27 12:28 | REP ---
INDICATION: pleural effusions, CHF COMPARISON: 07/26/2020. TECHNIQUE: PA/Lateral FINDINGS: There is mild cardiomegaly. There is vascular congestion. Moderate to large bilateral pleural effusions appear mildly increased in size compared to the prior study. Bibasilar infiltrates appear slightly increased. IMPRESSION: Mild increase in bilateral pleural effusions and infiltrates. <Electronically signed by Stephane Vargas > 07/27/20 [id number]
[2020-07-27] MEDS: guaiFENesin ER 600 MG TAB PO SCH ×2 (12:59→21:01)
[2020-07-27] MEDS: CYANOCOBALAMIN 500 MCG TAB PO SCH (12:59)
[2020-07-27] MEDS: POTASSIUM CHLORIDE 10 MEQ SR TABLET PO SCH (12:59)
[2020-07-27] MEDS: ASCORBIC ACID 500 MG TAB PO SCH (12:59)
[2020-07-27] MEDS: IRON POLYSAC (NIFEREX) 150 MG CAP PO SCH ×2 (12:59→21:01)
[2020-07-27] MEDS: ENOXAPARIN 30MG/0.3ML SYRINGE (J1650 PER 10MG) SC SCH (13:00)
[2020-07-27] MEDS: METOCLOPRAMIDE INJ 10MG/2ML VIAL (J2765 PER 1) IV PRN (13:00)
[2020-07-27] MEDS ORDERED: FLEET ENEMA PR PRN (18:45)
[2020-07-27] MEDS ORDERED: NORCO, ANEXSIA 5/325MG TABLET (HYDROcodone/ACETAMINOPHEN) PO PRN (21:00)
[2020-07-27] MEDS ORDERED: PERCOCET 5MG/325MG TAB PO PRN (21:00)
[2020-07-27] MEDS: FLUoxetine 10 MG CAP PO SCH (21:01)
[2020-07-28] MEDS: LEVALBUTEROL 1.25 MG/0.5 ML CONCENTRATE NEB NEB SCH ×4 (01:08→20:00)
[2020-07-28 04:00] VITALS: BP 143/65
[2020-07-28] MEDS: PROCHLORPERAZINE 5 MG TAB (S0183) PO PRN (05:29)
[2020-07-28] MEDS: LEVOTHYROXINE 75MCG TABLET (0.075MG) PO SCH (05:29)
[2020-07-28] MEDS: SLF 3 ML SYR IV SCH ×3 (05:29→21:54)
[2020-07-28 05:50] LABS: BASO % 0.5 % (0.0-1.0); EOS # 0.4 10^3/uL (0.0-0.5); EOS % 4.1 % (0.0-3.0); HEMATOCRIT 32.2 % (36.0-47.0); HEMOGLOBIN 10.3 g/dl (12.0-15.5); LYMPH % 11.1 % (24.0-44.0); MEAN CORPUSCULAR HEMOGLOBIN 29.3 pg (27.0-33.0); MEAN CORPUSCULAR VOLUME 91.5 fl (80.0-96.0); MONO % 11.1 % (2.0-8.0); NEUTROPHILS # 6.2 10^3/uL (1.5-8.5); NEUTROPHILS % 72.5 % (36.0-66.0); PLATELET COUNT, AUTOMATED 653 10^3/uL (150-450); RED BLOOD COUNT 3.52 10^6/uL (4.00-5.40); WHITE BLOOD COUNT 8.6 10^3/uL (4.0-10.0)
[2020-07-28 06:18] LABS: ALBUMIN 1.8 GM/DL (3.2-5.2); BILIRUBIN,TOTAL 0.3 MG/DL (0.2-1.0); CALCIUM LEVEL 7.9 MG/DL (8.8-10.2); CREATININE FOR GFR 2.07 MG/DL (0.55-1.30); GLOMERULAR FILTRATION RATE 25.1 (>39); MAGNESIUM LEVEL 2.9 MG/DL (1.8-2.4); POTASSIUM SERUM 4.3 MEQ/L (3.5-5.1); TOTAL PROTEIN 4.8 GM/DL (6.4-8.2)
[2020-07-28] MEDS: HumaLOG INSULIN (NovoLOG) PER UNIT SC SCH ×4 (07:30→21:00)
[2020-07-28 08:00] VITALS: BP 135/63
--- NOTE | 2020-07-28 08:04 | REP ---
INDICATION: pleural effusios, CHF COMPARISON: 07/27/2020 TECHNIQUE: PA and lateral. FINDINGS: The mediastinum and cardiac silhouette are relatively stable. The bilateral lung fuentes demonstrate improved aeration with decreased lower lobe opacities and decreased pleural fluid. No pneumothorax. Skeletal structures intact. IMPRESSION: Improved aeration with decreased lower lobe opacities and decreased pleural fluid. <Electronically signed by Chuck Barraza > 07/28/20 0800
--- NOTE | 2020-07-28 08:59 | IPN ---
PROGRESS NOTE DATE: 07/26/2020 SUBJECTIVE: Mrs. Sheikh was soundly asleep this morning on rounds, so I am seeing her this afternoon. She is sitting up comfortably in a chair. She does state she is weak, however. She is speaking in full sentences and is quite lucid. She is not complaining of any shortness of breath. OBJECTIVE: VITAL SIGNS: Show a T-max of 98.5 with a heart rate that ranges between 45 and 54 in sinus rhythm. Respiratory rate of 17 to 21 without the use of accessory muscles who is 94% to 95% saturated on 2 liters nasal cannula and whose blood pressure is ranging between 150/67 to 115/55. INTAKE AND OUTPUT: Over the past 24 hours has been recorded as 890 in and 580 out for a positivity of 300 mL. She weighs 61.9 kg today compared to 61.1 kg yesterday. RESPIRATORY: She has decreased breath sounds at the base on either side with E:A egophony on either side. Percussion note is dull on either side again. CARDIAC: Without murmurs, clicks, gallops, or rubs. I cannot feel her PMI. S1 and S2 are normal. ABDOMEN: Soft and nontender. Bowel sounds are positive. There is no hepatomegaly. No CVA tenderness. EXTREMITIES: Show maybe trace pretibial edema with her skin now being crinkly. There is no calf tenderness. No differential swelling of the upper extremities. SKIN: Warm, dry, and perfused without cyanosis or mottling, including that of the nail beds and knees. NECK: Supple. There is no jugular venous distention. No subcutaneous emphysema. Trachea is midline. MOUTH: Shows her mucous membranes to be pink and moist. Lips and commisures are without lesions and no thrush. EYES: Show her pupils equal and reactive. Extraocular muscles are intact. Sclerae nonicteric. NEUROLOGIC: Shows II through XII intact. Normal gross motor, gross sensation intact. Gait is not tested. PSYCHIATRIC: Shows her to be awake, alert, and oriented x3 with appropriate mood and affect and conversational. LABORATORY DATA: Her white count today is 9.6 with hemoglobin and hematocrit of 9.5 and 28.9 respectively. Platelet count is 512,000 and stable. Differential shows 77% neutrophils, 10% lymphocytes, and 8% monocytes. There are no immature forms and no toxic granulations. Her electrolytes show a sodium of 130 with a potassium of 4.1 and a BUN and creatinine of 77 and 2.71 up from 71 and 2.53 yesterday. Glucose is 148. Calcium is 8.1 with an albumin of 1.7. AST and ALT are normal. IMAGING DATA: Her chest x-ray is done essentially portably, even though she went down, it is an AP film. She has vague opacities in both lungs. I cannot tell if it is fluid, but I suspect it is, as they are presented as a diffuse haze. IMPRESSION: 1. Congestive heart failure. 2. Pulmonary hypertension . 3. Bilateral pleural effusions returning. 4. Acute renal injury continuing from the diuresis. 5. Hypothyroidism. 6. Hypoalbuminemia. 7. Invasive breast cancer with metastatic disease to her bones. PLAN AND DISCUSSION: While she shows no pretibial edema, she is recollecting fluids in her lungs. The fluid has not been shown to be malignant and I suspect it is again secondary to her heart failure. We are now between a rock and hard place between her kidneys and her heart. I will continue to follow her with chest x-rays. She tells me she will accept hormonal and/or chemotherapy.
[2020-07-28] MEDS: LEVEMIR (INSULIN DETEMIR) 1 UNITS/0.01ML SC SCH ×2 (09:00→21:54)
[2020-07-28] MEDS: ASCORBIC ACID 500 MG TAB PO SCH (09:07)
[2020-07-28] MEDS: CYANOCOBALAMIN 500 MCG TAB PO SCH (09:07)
[2020-07-28] MEDS: FUROSEMIDE 40MG/4ML VIAL (J1940) IV SCH (09:07)
[2020-07-28] MEDS: IRON POLYSAC (NIFEREX) 150 MG CAP PO SCH ×2 (09:07→21:54)
[2020-07-28] MEDS: guaiFENesin ER 600 MG TAB PO SCH ×2 (09:08→21:54)
[2020-07-28] MEDS: POTASSIUM CHLORIDE 10 MEQ SR TABLET PO SCH (09:08)
[2020-07-28] MEDS: METOCLOPRAMIDE INJ 10MG/2ML VIAL (J2765 PER 1) IV PRN (09:14)
[2020-07-28 11:38] VITALS: BP 116/55
[2020-07-28] MEDS: ENOXAPARIN 30MG/0.3ML SYRINGE (J1650 PER 10MG) SC SCH (12:56)
--- NOTE | 2020-07-28 15:37 | IPNPDOC ---
Text Note Date of Service The patient was seen on 07/28/20. NOTE Subjective: Patient stated that she continues to have nausea but less than ye sterday. Yesterday she decided to change her code status to DNR/DNI Objective: GENERAL APPEARANCE: Ill looking female HEENT: no scleral icterus, no JVD, EOMI CARDIOVASCULAR: S1S2 LUNGS: Diminished lung sounds bilaterally ABDOMEN: soft & not tender w palpitation MUSCULOSKELETAL: No cyanosis, no swelling INTEGUMENT: no generalized pallor NEUROLOGICAL: cranial nerve function from 2-12 intact intact, follows commands, speech not dysarthric Assessment and plan Patient is a 70 year old female with DM, hypertension, and renal artery stenosis who presents with bilateral lower extremity edema and found to have hypertensive urgency, acute kidney injury, CHF, and troponin increase. She was then subs equently found to have multiple lytic lesions (skull, thoracic cavity, lumbar spine), right breast cancer, and bilateral pleural effusions. Acute hypoxemic respiratory failure Secondary to pleural effusion secondary to diastolic CHF exacerbation superimposed with possible malignant effusion Echo showed EF 50 to 55% with grade 1 [place] [address] Continue Lasix IV Continue high flow oxygen BNP from 07/16/20 66910 Patient' requirements 30 L Vapotherm FiO2 90% CT showed Enlarging pleural effusions and increasing compressive atelectasis, infiltrates and interstitial edema on 07/18/20 Thoracocentesis was done on 07/18/20 ,pleural fluid transudate. Pleura VAC was hiram annmarie. I talked to Dr. Henson, he recommended to aspirate no more than 200cc of fluid in one time in order to prevent acute reexpansion of pulmonary edema On 07/18/20 pleural fluid positive for Staphylococcus capitis, most likely contamination. Patient does not have leukocytosis, afebrile. Second set of pleural fluid negative for culture Continue drain pleural fluid. pigtail catheter was placed on 07/22/20 to drain right pleural effusion, 600 mL was drained Pain management On 07/23/20 patient developed leukocytosis with neutrophils 89%, patient afebrile. I started cefepime IV empirically. Chest x-ray showed The left pleural effusion appears slightly larger. The right pleural effusion is unchanged.The left pleural pigtail drainage catheter has been removed. This is unchanged Procalcitonin 0.58 which indicates antibiotic therapy blood culture results on 07/24/20 negative for 24 hours. Leukocytosis improved to 10.6 On 07/25/20 chest catheter was removed on the left side and right-side Procalcitonin 0.86 On 07/26/20 patient afebrile, no leukocytosis. I discontinued cefepime Pt's oxygen requirements 3 L via nasal cannula On 07/28/20 Improved aeration with decreased lower lobe opacities and decreased pleural fluid. Oxygen requirements around 2 L by nasal cannula Acute re-expansion pulmonary edema Complication from right thoracentesis on 07/10/2020. Pleural fluid is transudate Continue diuresis with decreased dose of Lasix, DC metolazone Acute diastolic CHF Echo showed Normal LV size with mild left ventricular hypertrophy (LVH), septal wall motion abnormality related to LBBB and overall left ventricular ejection fraction (LVEF) estimated at 50% to 55%. Grade 1 diastolic dysfunction I's and O's, fluid restriction 07/22/20 Echo showed left ventricular (LV) diastolic dysfunction with a dilated left atrium with concentric left ventricular hypertrophy and a mildly dilated right ventricle with a very small pericardial effusion posteriorly without compression with an estimated right ventricular systolic pressure of 15 mmHg, ejection fraction of 60% Anemia of chronic diseases Hemoglobin stable Status post transfusion of 1 unit of blood on 07/25/20 stool for occult blood negative Acute kidney injury Improved today, creatinine 2.07 We decreased her dose of Lasix to 40 mg IV daily continue to monitor Type 2 diabetes I increased the dose of detemir to 6 units twice a day for better control glucose level Insulin sliding scale Diabetes diet Breast cancer stage IV pathology report shows breast carcinoma I talked to Dr. Araiza for did consult on 07/09, I told him that patient agree to start treatment with aromatase inhibitors. Oncology team recommended to start treatment in the outpatient settings Acute urinary retention -will continue Hernandez for accurate I/O's Right renal artery stenosis -Seen on retroperitoneal US on 10/26/2016 Hypertension Norvasc and hydralazine on hold due to intensive diuresis. Blood pressure stable Hypertensive urgency Resolved Elevated troponin Most likely demand ischemia Troponin trended down Gait instability Patient has history of gait instability. MRI spine showed There is diffuse heterogeneous signal intensity of the visualized bone marrow of the lumbar, lower thoracic, and upper sacral spine. This is concerning for metastatic disease. Myeloma is within the differential. Degenerative changes are noted at multiple lumbar and lower thoracic levels, as described above. No significant spinal canal stenosis at any lumbar level. There is no bone marrow compression according to MRI PT/OT Hypothyroidism Continue levothyroxine Right leg swelling/right arm swelling Doppler ultrasound negative for DVT Cachexia Patient stated that her weight decreased around 20 pounds past year She has reduced muscle mass with temporal wasting and low albumin [employer] Operator assessment Constipation Continue senna, MiraLAX, Dulcolax Persistent nausea/vomiting Multifactorial, could be attributed to pain medications, malignancy, kidney failure I intensified nausea medication regimen, added prochlorperazine IV, increase interval between pain medication Continue to monitor QTC prolongation on EKG Palliative care encounter Overall prognosis is poor Palliative care on board. Depression I started fluoxetine yesterday. DVT ppx Lovenox 30 mg subcutaneously VS,Fishbone, I+O VS, Fishbone, I+O Laboratory Tests 07/28/20 05:16 Vital Signs Date Time Temp Pulse Resp B/P (MAP) Pulse Ox O2 Delivery O2 Flow Rate FiO2 07/28/20 12:00 2.0 07/28/20 11:38 98.5 47 18 116/55 (75) 92 Nasal Cannula I&O- Last 24 Hours up to 6 AM 07/28/20 06:00 Intake Total 600 ml Output Total 1650 ml Balance -1050 ml SB NICE DO Jul 28, 2020 15:37
--- NOTE | 2020-07-28 16:12 | IPN ---
PROGRESS NOTE DATE: 07/28/2020 SUBJECTIVE: Ms. Sheikh is feeling a lot better today and she is brighter today. She is breathing well. She still feels a bit weak and I am surprised that she has not even sat in a chair today and I have asked the nursing staff to do so. Physical therapy is going to work with her later today for ambulation. OBJECTIVE: VITAL SIGNS: Show a T-max of 98.5 with a heart rate that ranges between 47 and 54 in sinus rhythm. Respiratory rate of 17 to 19 without the use of accessory muscles who is 91% to 94% saturated on 2 liters nasal cannula and whose blood pressure is ranging between 116/55 to 143/65. INTAKE AND OUTPUT: Over the past 24 hours has been recorded as 950 in and 1895 out for a negativity of 945 mL. She weighs 61.5 kg today compared to 61.8 kg yesterday. RESPIRATORY: She has rales in the right lower hemithorax during late inspiration. Likewise, she has the same on the left side at the very base. Essentially though, she has normal vesicular sounds elsewhere. Percussion notes are full to the diaphragm. CARDIAC: Without murmurs, clicks, gallops, or rubs. I cannot feel her PMI. S1 and S2 are normal. ABDOMEN: Soft and nontender. Bowel sounds are positive. There is no hepatomegaly. No CVA tenderness. EXTREMITIES: Show no pretibial edema. No calf tenderness. No differential swelling of the upper extremities. SKIN: Warm, dry, and perfused without cyanosis or mottling, including that of the nail beds and knees. NECK: Supple. There is no jugular venous distention. No subcutaneous emphysema. Trachea is midline. MOUTH: Shows the mucous membranes to be pink and moist. Lips and commisures are without lesions and no thrush. EYES: Show her pupils equal and reactive. Extraocular muscles are intact. Sclerae nonicteric. NEUROLOGIC: Shows II through XII intact. Normal gross motor, gross sensation intact. Gait is not tested. PSYCHIATRIC: Shows her to be awake, alert, and oriented x3 with appropriate mood and affect and conversational. LABORATORY DATA: Her white count today is 8.6 with a hemoglobin and hematocrit of 10.3 and 32.2 respectively. Her platelet count is 653,000 and stable. Differential shows 72% neutrophils, 11% lymphocytes, and 11% monocytes. There are no immature forms and no toxic granulations. Her electrolytes are essentially normal with a marginally high total CO2 of 34 and a marginally low chloride of 96 secondary to her Lasix diuresis. Glucose is 112 with a calcium of 7.9. Albumin is 1.8 and stabilizing. She has not received albumin transfusions in about three days. IMAGING DATA: Her chest x-ray is remarkably improved. Costophrenic angles are sharp. I do not see evidence of pulmonary edema or cephalization of vessels. There may be some blunting of the right costophrenic angle on the lateral film, although that is equivocal to actually make that call. IMPRESSION: 1. Congestive heart failure. 2. Pulmonary hypertension. 3. Bilateral pleural effusions resolving. 4. Acute renal injury resolving. 5. Hypothyroidism . 6. Hypoalbuminemia. 7. Invasive breast cancer with metastatic disease to her bone. 8. Deconditioning. PLAN AND DISCUSSION: She is going to be working with physical therapy to recondition. She may need placement for rehab. She needs to follow-up with oncology as she is considering undertaking at least hormonal therapy. She is a lot brighter and I think that her outlook is more optimistic.
[2020-07-28 20:00] VITALS: BP 137/61
[2020-07-28] MEDS: FLUoxetine 10 MG CAP PO SCH (21:54)
--- NOTE | 2020-07-28 23:10 | ECGEPIP ---
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 Consider complete heart block ( NEW ) Right bundle branch block Non specific ST/T abnormality Compared to prior tracings (5) in the system Electronically Signed on 07-28-2020 23:10:31 EDT by Humberto Barr
[2020-07-29] VITALS (7 sets, daily range): BP systolic 108–155; BP diastolic 53–70; O2SAT 94
[2020-07-29] MEDS: LEVALBUTEROL 1.25 MG/0.5 ML CONCENTRATE NEB NEB SCH ×6 (02:00→20:11)
[2020-07-29] MEDS: LEVOTHYROXINE 75MCG TABLET (0.075MG) PO SCH (05:40)
[2020-07-29] MEDS: SLF 3 ML SYR IV SCH ×3 (05:40→20:19)
[2020-07-29 06:23] LABS: BASO # 0.1 10^3/uL (0.0-0.2); BASO % 0.9 % (0.0-1.0); EOS # 0.3 10^3/uL (0.0-0.5); EOS % 3.9 % (0.0-3.0); HEMATOCRIT 34.1 % (36.0-47.0); HEMOGLOBIN 10.8 g/dl (12.0-15.5); LYMPH # 1.2 10^3/uL (1.5-5.0); LYMPH % 15.2 % (24.0-44.0); MEAN CORPUSCULAR HEMOGLOBIN 28.8 pg (27.0-33.0); MEAN CORPUSCULAR HGB CONC 31.7 g/dl (32.0-36.5); MEAN CORPUSCULAR VOLUME 90.9 fl (80.0-96.0); MONO # 1.2 10^3/uL (0.0-0.8); MONO % 15.1 % (2.0-8.0); NEUTROPHILS # 4.9 10^3/uL (1.5-8.5); NEUTROPHILS % 64.1 % (36.0-66.0); PLATELET COUNT, AUTOMATED 711 10^3/uL (150-450); RED BLOOD COUNT 3.75 10^6/uL (4.00-5.40); WHITE BLOOD COUNT 7.6 10^3/uL (4.0-10.0)
[2020-07-29 06:48] LABS: BILIRUBIN,TOTAL 0.3 MG/DL (0.2-1.0); CALCIUM LEVEL 8.5 MG/DL (8.8-10.2); CREATININE FOR GFR 2.03 MG/DL (0.55-1.30); GLOMERULAR FILTRATION RATE 25.7 (>39); MAGNESIUM LEVEL 2.9 MG/DL (1.8-2.4); POTASSIUM SERUM 4.4 MEQ/L (3.5-5.1); TOTAL PROTEIN 5.2 GM/DL (6.4-8.2)
[2020-07-29] MEDS: HumaLOG INSULIN (NovoLOG) PER UNIT SC SCH ×4 (07:30→20:11)
[2020-07-29] MEDS: ASCORBIC ACID 500 MG TAB PO SCH (08:45)
[2020-07-29] MEDS: guaiFENesin ER 600 MG TAB PO SCH ×2 (08:45→20:18)
[2020-07-29] MEDS: CYANOCOBALAMIN 500 MCG TAB PO SCH (08:45)
[2020-07-29] MEDS: IRON POLYSAC (NIFEREX) 150 MG CAP PO SCH ×2 (08:45→20:18)
[2020-07-29] MEDS: FUROSEMIDE 40MG/4ML VIAL (J1940) IV SCH (08:46)
[2020-07-29] MEDS: POTASSIUM CHLORIDE 10 MEQ SR TABLET PO SCH (08:46)
[2020-07-29] MEDS: LEVEMIR (INSULIN DETEMIR) 1 UNITS/0.01ML SC SCH ×2 (08:46→20:19)
--- NOTE | 2020-07-29 10:57 | REP ---
INDICATION: s/p ct removal COMPARISON: 07/28/2020. TECHNIQUE: PA/Lateral FINDINGS: There is no significant change in the bibasilar pleural and parenchymal opacities, left greater than right. Heart and mediastinum are unchanged. IMPRESSION: Stable exam. <Electronically signed by Stephane Vargas > 07/29/20 1057
--- NOTE | 2020-07-29 12:28 | IPNPDOC ---
Text Note Date of Service The patient was seen on 07/29/20. NOTE Subjective: No any acute events overnight. Patient stated that she feels better today, she reported that her mind is clear today. Patient told me that she consider to go to rehabilitation. Objective: GENERAL APPEARANCE: Ill looking female HEENT: no scleral icterus, no JVD, EOMI CARDIOVASCULAR: S1S2 LUNGS: Diminished lung sounds bilaterally ABDOMEN: soft & not tender w palpitation MUSCULOSKELETAL: No cyanosis, no swelling INTEGUMENT: no generalized pallor NEUROLOGICAL: cranial nerve function from 2-12 intact intact, follows commands, speech not dysarthric Assessment and plan Patient is a 70 year old female with DM, hypertension, and renal artery stenosis who presents with bilateral lower extremity edema and found to have hypertensive urgency, acute kidney injury, CHF, and troponin increase. She was then subsequently found to have multiple lytic lesions (skull, thoracic cavity, lumbar spine), right breast cancer, and bilateral pleural effusions. Acute hypoxemic respiratory failure Secondary to pleural effusion secondary to diastolic CHF exacerbation superimposed with possible malignant effusion Echo showed EF 50 to 55% with grade 1 [place] [address] Continue Lasix IV Continue high flow oxygen BNP from 07/16/20 23547 Patient' requirements 30 L Vapotherm FiO2 90% CT showed Enlarging pleural effusions and increasing compressive atelectasis, infiltrates and interstitial edema on 07/18/20 Thoracocentesis was done on 07/18/20 ,pleural fluid transudate. Pleura VAC was placed. I talked to Dr. Henson, he recommended to aspirate no more than 200cc of fluid in one time in order to prevent acute reexpansion of pulmonary edema On 07/18/20 pleural fluid positive for Staphylococcus capitis, most likely contamination. Patient does not have leukocytosis, afebrile. Second set of pleural fluid negative for culture Continue drain pleural fluid. pigtail catheter was placed on 07/22/20 to drain right pleural effusion, 600 mL was drained Pain management On 07/23/20 patient developed leukocytosis with neutrophils 89%, patient afebrile. I started cefepime IV empirically. Chest x-ray showed The left pleural effusion appears slightly larger. The right pleural effusion is unchanged.The left pleural pigtail drainage catheter has been removed. This is unchanged Procalcitonin 0.58 which indicates antibiotic therapy blood culture results on 07/24/20 negative for 24 hours. Leukocytosis improved to 10.6 On 07/25/20 chest catheter was removed on the left side and right-side Procalcitonin 0.86 On 07/26/20 patient afebrile, no leukocytosis. I discontinued cefepime Pt's oxygen requirements 3 L via nasal cannula On 07/28/20 Improved aeration with decreased lower lobe opacities and decreased pleural fluid. Oxygen requirements around 2 L by nasal cannula On 07/29/20 patient was on 2 L by nasal cannula with oxygen saturation around 95- 96% Acute re-expansion pulmonary edema Complication from right thoracentesis on 07/10/2020. Pleural fluid is transudate Continue diuresis with decreased dose of Lasix, DC metolazone Acute diastolic CHF Echo showed Normal LV size with mild left ventricular hypertrophy (LVH), septal wall motion abnormality related to LBBB and overall left ventricular ejection fraction (LVEF) estimated at 50% to 55%. Grade 1 diastolic dysfunction I's and O's, fluid restriction 07/22/20 Echo showed left ventricular (LV) diastolic dysfunction with a dilated left atrium with concentric left ventricular hypertrophy and a mildly dilated right ventricle with a very small pericardial effusion posteriorly without compression with an estimated right ventricular systolic pressure of 15 mmHg, ejection fraction of 60% Anemia of chronic diseases Hemoglobin stable Status post transfusion of 1 unit of blood on 07/25/20 stool for occult blood negative Acute kidney injury Improved today, creatinine 2.07 We decreased her dose of Lasix to 40 mg IV daily continue to monitor Type 2 diabetes I increased the dose of detemir to 6 units twice a day for better control glucose level Insulin sliding scale Diabetes diet Breast cancer stage IV pathology report shows breast carcinoma I talked to Dr. Araiza for did consult on 07/09, I told him that patient agree to start treatment with aromatase inhibitors. Oncology team recommended to start treatment in the outpatient settings Acute urinary retention -will continue Hernandez for accurate I/O's Right renal artery stenosis -Seen on retroperitoneal US on 10/26/2016 Hypertension Norvasc and hydralazine on hold due to intensive diuresis. Blood pressure stable Hypertensive urgency Resolved Elevated troponin Most likely demand ischemia Troponin trended down Gait instability Patient has history of gait instability. MRI spine showed There is diffuse heterogeneous signal intensity of the visualized bone marrow of the lumbar, lower thoracic, and upper sacral spine. This is concerning for metastatic disease. Myeloma is within the differential. Degenerative changes are noted at multiple lumbar and lower thoracic levels, as described above. No significant spinal canal stenosis at any lumbar level. 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 Depression I started fluoxetine DVT ppx Lovenox 30 mg subcutaneously VS,Fishbone, I+O VS, Fishbone, I+O Laboratory Tests 07/29/20 05:39 Vital Signs Date Time Temp Pulse Resp B/P (MAP) Pulse Ox O2 Delivery O2 Flow Rate FiO2 07/29/20 12:00 96.5 49 18 146/67 (93) 97 Nasal Cannula 2.0 I&O- Last 24 Hours up to 6 AM 07/29/20 06:00 Intake Total 860 ml Output Total 1925 ml Balance -1065 ml SB NICE DO Jul 29, 2020 12:28
--- NOTE | 2020-07-29 12:39 | IPN ---
PROGRESS NOTE DATE: 07/29/2020 What a difference a few days makes. Mrs. Sheikh is awake, alert, bright, smiling, and feels great. She wishes to undertake rehabilitation. Her vital signs show a maximum temperature of 98.2 with a heart rate that ranges between 44-56 in a sinus rhythm, respiratory rate of 14-18 without the use of accessory muscles, who is 90%-95% saturated on 2 liters nasal cannula, and whose blood pressure is ranging between 143/64 to 108/53. Her intake and output for the past 24 hours has been recorded as 660 in and 1625 out, for a negativity of 965 mL. Her weight is pending today. PHYSICAL EXAMINATION: Her lungs show nearly normal vesicular sounds with some faint rales at the base of each lung. Percussion not is full to the diaphragm. Cardiac exam is without murmurs, clicks, gallops, or rubs. I cannot feel her point of maximal impulse (PMI). S1 and S2 are normal. Abdomen is soft and nontender. Bowel sounds are positive. There is no hepatomegaly. No costovertebral angle (CVA) tenderness. Extremities show no pretibial edema, no calf tenderness, no differential swelling of the upper extremities. Skin is warm, dry, and perfused without cyanosis or mottling, including that of the nailbeds and knees. Neck is supple. There is no jugular venous distention. No subcutaneous emphysema. Trachea is midline. Mouth shows the mucous membranes to be pink and moist. Lips and commissures without lesions. No thrush. Eyes show her pupils to be equal and reactive. Extraocular motion intact. Sclerae anicteric. Neurologic shows II-XII intact. Normal gross motor, gross sensation intact. Gait is not tested. Psychiatric shows her to be awake, alert, and oriented times three with appropriate mood and affect and conversational. Her white count today is 7.6 with a hemoglobin and hematocrit of 10.8 and 34.1, slightly improved from 10.3 and 32.2 yesterday. Platelet count is 711, and differential shows 64% neutrophils, 15% lymphocytes, 15% monocytes. There are no immature forms or toxic granulations. Her electrolytes show a normal potassium and sodium with a BUN and creatinine of 16 and 2.03, which continue to improve. Calcium is 8.5 with a glucose of 75. AST and ALT are normal. Her albumin is 2.0, up from 1.8 yesterday without albumin infusion. Her chest x-ray today shows the lung fully expanded to the chest wall. Costophrenic angles are sharp. Cardiac silhouette is normal in size. I see no other infiltrates. IMPRESSION: 1. Congestive heart failure. 2. Pulmonary hypertension. 3. Bilateral pleural effusions, resolving. 4. Acute renal injury, resolving. 5. Hypothyroidism. 6. Hypoalbuminemia. 7. Invasive breast cancer with metastatic disease to her bone. 8. Deconditioning. PLAN AND DISCUSSION: We should arrange for her to undergo acute rehabilitation in order to get her up and around walking. Oncology should see her as an outpatient to further discuss therapeutic options. Her attitude is so much changed now, and she is excited about going on.
[2020-07-29] MEDS ORDERED: PROC5TAB57 PO (12:49)
[2020-07-29] MEDS ORDERED: TORS5TAB2 PO (12:49)
[2020-07-29] MEDS ORDERED: LEVO75TA4 PO (12:49)
[2020-07-29] MEDS ORDERED: DOK1CAP7 PO (12:49)
[2020-07-29] MEDS ORDERED: FLUO10CA16 PO (12:49)
[2020-07-29] MEDS ORDERED: AMLO1TAB25 PO (12:49)
[2020-07-29] MEDS ORDERED: SENN18TA PO (12:49)
[2020-07-29] MEDS ORDERED: POLY17PO18 PO (12:49)
[2020-07-29] MEDS ORDERED: BISA10SU PR (12:49)
[2020-07-29] MEDS ORDERED: ZOFR4TAB16 PO (12:49)
[2020-07-29] MEDS: ENOXAPARIN 30MG/0.3ML SYRINGE (J1650 PER 10MG) SC SCH (14:53)
[2020-07-29] MEDS: FLUoxetine 10 MG CAP PO SCH (20:18)
[2020-07-29] MEDS ORDERED: RAMELTEON 8 MG TAB (ROZEREM) PO ONE (21:00)
[2020-07-29] MEDS: MIRALAX *UNIT DOSE* 17GM PACKET PO PRN (22:41)
[2020-07-30] VITALS (7 sets, daily range): BP systolic 115–175; BP diastolic 56–74
[2020-07-30] MEDS: LEVALBUTEROL 1.25 MG/0.5 ML CONCENTRATE NEB NEB SCH ×4 (02:00→20:00)
[2020-07-30] MEDS: ONDANSETRON 4MG/2ML VIAL IV PRN (02:17)
[2020-07-30] MEDS: DOCUSATE SODIUM 100MG CAPSULE PO PRN (05:33)
[2020-07-30] MEDS: SLF 3 ML SYR IV SCH ×3 (05:33→20:25)
[2020-07-30] MEDS: LEVOTHYROXINE 75MCG TABLET (0.075MG) PO SCH (05:33)
[2020-07-30 05:53] LABS: BASO # 0.1 10^3/uL (0.0-0.2); BASO % 0.9 % (0.0-1.0); EOS # 0.3 10^3/uL (0.0-0.5); EOS % 3.1 % (0.0-3.0); HEMATOCRIT 31.5 % (36.0-47.0); LYMPH # 1.2 10^3/uL (1.5-5.0); LYMPH % 14.5 % (24.0-44.0); MEAN CORPUSCULAR HEMOGLOBIN 29.2 pg (27.0-33.0); MEAN CORPUSCULAR HGB CONC 31.7 g/dl (32.0-36.5); MEAN CORPUSCULAR VOLUME 92.1 fl (80.0-96.0); MONO # 1.1 10^3/uL (0.0-0.8); MONO % 13.5 % (2.0-8.0); NEUTROPHILS # 5.5 10^3/uL (1.5-8.5); NEUTROPHILS % 67.1 % (36.0-66.0); RED BLOOD COUNT 3.42 10^6/uL (4.00-5.40); WHITE BLOOD COUNT 8.2 10^3/uL (4.0-10.0)
[2020-07-30 05:59] LABS: PLATELET COUNT, AUTOMATED 594 10^3/uL (150-450)
[2020-07-30 07:17] LABS: ALBUMIN 1.8 GM/DL (3.2-5.2); BILIRUBIN,TOTAL 0.2 MG/DL (0.2-1.0); CALCIUM LEVEL 8.1 MG/DL (8.8-10.2); CREATININE FOR GFR 1.83 MG/DL (0.55-1.30); MAGNESIUM LEVEL 2.9 MG/DL (1.8-2.4); POTASSIUM SERUM 4.6 MEQ/L (3.5-5.1); TOTAL PROTEIN 4.7 GM/DL (6.4-8.2)
[2020-07-30] MEDS: HumaLOG INSULIN (NovoLOG) PER UNIT SC SCH ×4 (07:30→20:26)
--- NOTE | 2020-07-30 09:06 | REP ---
INDICATION: pleura effusion. COMPARISON: Multiple the latest yesterday TECHNIQUE: Two views FINDINGS: The cardiomediastinal silhouette is unchanged. Bibasilar opacities are noted status quo. There is bilateral CP angle blunting status quo. There are no new abnormal opacities. There is no change in the osseous structures. IMPRESSION: No significant change <Electronically signed by Kunal Solorzano > 07/30/20 0903
[2020-07-30] MEDS: FUROSEMIDE 40MG/4ML VIAL (J1940) IV SCH (09:54)
[2020-07-30] MEDS: POTASSIUM CHLORIDE 10 MEQ SR TABLET PO SCH (09:55)
[2020-07-30] MEDS: LEVEMIR (INSULIN DETEMIR) 1 UNITS/0.01ML SC SCH ×2 (09:55→20:25)
[2020-07-30] MEDS: CYANOCOBALAMIN 500 MCG TAB PO SCH (09:56)
[2020-07-30] MEDS: ASCORBIC ACID 500 MG TAB PO SCH (09:56)
[2020-07-30] MEDS: IRON POLYSAC (NIFEREX) 150 MG CAP PO SCH ×2 (09:56→20:25)
[2020-07-30] MEDS: guaiFENesin ER 600 MG TAB PO SCH ×2 (09:56→20:25)
--- NOTE | 2020-07-30 12:06 | IPN ---
PROGRESS NOTE DATE: 07/30/2020 SUBJECTIVE: Ms. Sheikh took a sleeping pill last night and she states she has a bit of a hangover and feeling a bit groggy. She is not as bright as she was yesterday, but nonetheless is quite conversational and will crack a smile. OBJECTIVE: VITAL SIGNS: Show a T-max of 97.9 with a heart rate that ranges between 42 and 60 in sinus rhythm. Respiratory rate of 14 to 23 without the use of accessory muscles who is 95% to 97% saturated on 2 liters of nasal cannula and whose blood pressure is ranging between 175/74 to 127/58. INTAKE AND OUTPUT: Over the past 24 hours has been recorded as 980 in and 1825out for a negativity of 845 mL. She weighs 58.2 kg today compared to 61.5 kg yesterday. RESPIRATORY: She has almost normal vesicular sounds, although I do hear some new bronchophony in the right lower hemithorax. Percussion notes are full to the diaphragm. CARDIAC: Without murmurs, clicks, gallops, or rubs. I cannot feel her PMI. S1 and S2 are normal. ABDOMEN: Soft and nontender. Bowel sounds are positive. There is no hepatomegaly. No CVA tenderness. EXTREMITIES: Show no pretibial edema. No calf tenderness. No differential swelling of the upper extremities. SKIN: Warm, dry, and perfused without cyanosis or mottling, including that of the nail beds and knees. NECK: Supple. There is no jugular venous distention. No subcutaneous emphysema. Trachea is midline. MOUTH: Shows the mucous membranes to be pink and moist. Lips and commisures are without lesions and no thrush. EYES: Show her pupils equal and reactive. Extraocular muscles are intact. Sclerae nonicteric. NEUROLOGIC: Shows II through XII intact. Normal gross motor, gross sensation intact. Gait is not tested. PSYCHIATRIC: Shows her to be awake, alert, and oriented x3 with appropriate mood and affect and conversational. LABORATORY DATA: Her white count today is 8.2 with hemoglobin and hematocrit of 10.0 and 31.5 down from 10.8 and 34.1 yesterday. Platelet count is 594,000 and stable. Differential shows 67% neutrophils, 14% lymphocytes, 15% monocytes. There are no immature forms and no toxic granulations. Her electrolytes are essentially normal with a marginally high total CO2 of 33 secondary to her Lasix diuresis. BUN and creatinine are continuing to improve to 58 and 1.83 from 60 and 2.03 yesterday. The highest that her care had reached was 2.71 five days ago. Her albumin is 1.8. IMAGING DATA: Her chest x-ray shows her lungs fully expand to the chest wall. Costophrenic angles are sharp. I see no infiltrates. There may be a little bit of fluid returning to the major fissure on the PA view. Lateral views supine and tells me very little. IMPRESSION: 1. Congestive heart failure. 2. Pulmonary hypertension. 3. Bilateral pleural effusions resolving. 4. Acute renal injury resolving. 5. Hypothyroidism. 6. Hypoalbuminemia. 7. Invasive breast cancer with metastatic disease to her bones. 8. Deconditioning. PLAN AND DISCUSSION: I will transition her to p.o. Lasix 40 mg b.i.d. and discontinue the IV Lasix. Nursing staff has told me that she is being taken care of by [facility] and has acute rehab consultation in place. She would benefit greatly from rehab for strengthening and reconditioning.
--- NOTE | 2020-07-30 14:59 | IPNPDOC ---
Text Note Date of Service The patient was seen on 07/30/20. NOTE Subjective: No any acute events overnight. I discussed with patient subacute rehabilitation and she is agree to go. Most likely it will be [place] subacute rehabilitation. Objective: GENERAL APPEARANCE: Ill looking female HEENT: no scleral icterus, no JVD, EOMI CARDIOVASCULAR: S1S2 LUNGS: Diminished lung sounds bilaterally ABDOMEN: soft & not tender w palpitation MUSCULOSKELETAL: No cyanosis, no swelling INTEGUMENT: no generalized pallor NEUROLOGICAL: cranial nerve function from 2-12 intact intact, follows commands, speech not dysarthric Assessment and plan Patient is a 70 year old female with DM, hypertension, and renal artery stenosis who presents with bilateral lower extremity edema and found to have hypertensive urgency, acute kidney injury, CHF, and troponin increase. She was then subsequently found to have multiple lytic lesions (skull, thoracic cavity, lumbar spine), right breast cancer, and bilateral pleural effusions. Acute hypoxemic respiratory failure Secondary to pleural effusion secondary to diastolic CHF exacerbation superimposed with possible malignant effusion Echo showed EF 50 to 55% with grade 1 [place] [address] Continue Lasix IV Continue high flow oxygen BNP from 07/16/20 65232 Patient' requirements 30 L Vapotherm FiO2 90% CT showed Enlarging pleural effusions and increasing compressive atelectasis, infiltrates and interstitial edema on 07/18/20 Thoracocentesis was done on 07/18/20 ,pleural fluid transudate. Pleura VAC was placed. I talked to Dr. Henson, he recommended to aspirate no more than 200cc of fluid in one time in order to prevent acute reexpansion of pulmonary edema On 07/18/20 pleural fluid positive for Staphylococcus capitis, most likely contamination. Patient does not have leukocytosis, afebrile. Second set of pleural fluid negative for culture Continue drain pleural fluid. pigtail catheter was placed on 07/22/20 to drain right pleural effusion, 600 mL was drained Pain management On 07/23/20 patient developed leukocytosis with neutrophils 89%, patient afebrile. I started cefepime IV empirically. Chest x-ray showed The left pleural effusion appears slightly larger. The right pleural effusion is unchanged.The left pleural pigtail drainage catheter has been removed. This is unchanged Procalcitonin 0.58 which indicates antibiotic therapy blood culture results on 07/24/20 negative for 24 hours. Leukocytosis improved to 10.6 On 07/25/20 chest catheter was removed on the left side and right-side Procalcitonin 0.86 On 07/26/20 patient afebrile, no leukocytosis. I discontinued cefepime Pt's oxygen requirements 3 L via nasal cannula On 07/28/20 Improved aeration with decreased lower lobe opacities and decreased pleural fluid. Oxygen requirements around 2 L by nasal cannula On 07/29/20 patient was on 2 L by nasal cannula with oxygen saturation around 95- 96% On 07/30/20 chest x-ray showed The cardiomediastinal silhouette is unchanged. Bibasilar opacities are noted status quo. There is bilateral CP angle blunting status quo. There are no new abnormal opacities. Acute re-expansion pulmonary edema Complication from right thoracentesis on 07/10/2020. Pleural fluid is transudate Continue diuresis with decreased dose of Lasix, DC metolazone Acute diastolic CHF Echo showed Normal LV size with mild left ventricular hypertrophy (LVH), septal wall motion abnormality related to LBBB and overall left ventricular ejection fraction (LVEF) estimated at 50% to 55%. Grade 1 diastolic dysfunction I's and O's, fluid restriction 07/22/20 Echo showed left ventricular (LV) diastolic dysfunction with a dilated left atrium with concentric left ventricular hypertrophy and a mildly dilated right ventricle with a very small pericardial effusion posteriorly without compression with an estimated right ventricular systolic pressure of 15 mmHg, ejection fraction of 60% Anemia of chronic diseases Hemoglobin stable Status post transfusion of 1 unit of blood on 07/25/20 stool for occult blood negative Acute kidney injury Improved today, creatinine 1.8 We decreased her dose of Lasix 40 mg by mouth continue to monitor Type 2 diabetes I increased the dose of detemir to 6 units twice a day for better control glucose level Insulin sliding scale Diabetes diet Breast cancer stage IV pathology report shows breast carcinoma I talked to Dr. Araiza for did consult on 07/09, I told him that patient agree to start treatment with aromatase inhibitors. Oncology team recommended to start treatment in the outpatient settings Acute urinary retention -will continue Hernandez for accurate I/O's Right renal artery stenosis -Seen on retroperitoneal US on 10/26/2016 Hypertension Norvasc and hydralazine on hold due to intensive diuresis. Blood pressure stable Hypertensive urgency Resolved Elevated troponin Most likely demand ischemia Troponin trended down Gait instability Patient has history of gait instability. MRI spine showed There is diffuse heterogeneous signal intensity of the visualized bone marrow of the lumbar, lower thoracic, and upper sacral spine. This is concerning for metastatic disease. Myeloma is within the differential. Degenerative changes are noted at multiple lumbar and lower thoracic levels, as described above. No significant spinal canal stenosis at any lumbar level. There is no bone marrow compression according to MRI PT/OT Hypothyroidism Continue levothyroxine Right leg swelling/right arm swelling Doppler ultrasound negative for DVT Cachexia Patient stated that her weight decreased around 20 pounds past year She has reduced muscle mass with temporal wasting and low albumin [employer] assessment Constipation Continue senna, MiraLAX, Dulcolax Persistent nausea/vomiting Multifactorial, could be attributed to pain medications, malignancy, kidney failure I intensified nausea medication regimen, added prochlorperazine IV, increase interval between pain medication Continue to monitor QTC prolongation on EKG Palliative care encounter Overall prognosis is poor Palliative care on board. Depression I started fluoxetine DVT ppx Lovenox 30 mg subcutaneously VS,Fishbone, I+O VS, Fishbone, I+O Laboratory Tests 07/30/20 05:15 Vital Signs Date Time Temp Pulse Resp B/P (MAP) Pulse Ox O2 Delivery O2 Flow Rate FiO2 07/30/20 12:00 2.0 07/30/20 12:00 97.3 44 18 136/62 (86) 95 Nasal Cannula 07/29/20 20:15 28 I&O- Last 24 Hours up to 6 AM 07/30/20 06:00 Intake Total 1020 ml Output Total 1675 ml Balance -655 ml SB NICE DO Jul 30, 2020 14:59
[2020-07-30] MEDS: FUROSEMIDE 40 MG TAB PO SCH (18:23)
[2020-07-30] MEDS: ENOXAPARIN 30MG/0.3ML SYRINGE (J1650 PER 10MG) SC SCH (18:23)
[2020-07-30] MEDS: FLUoxetine 10 MG CAP PO SCH (20:25)
[2020-07-31] VITALS (7 sets, daily range): BP systolic 120–152; BP diastolic 56–70
[2020-07-31] MEDS: ACETAMINOPHEN TAB 650MG DOSE (2X325MG) PO PRN ×2 (00:01→06:55)
[2020-07-31] MEDS: LEVALBUTEROL 1.25 MG/0.5 ML CONCENTRATE NEB NEB SCH ×4 (02:00→19:39)
[2020-07-31] MEDS: LEVOTHYROXINE 75MCG TABLET (0.075MG) PO SCH (05:25)
[2020-07-31] MEDS: SLF 3 ML SYR IV SCH ×3 (05:25→22:08)
[2020-07-31 08:55] LABS: BASO # 0.1 10^3/uL (0.0-0.2); BASO % 0.6 % (0.0-1.0); EOS # 0.3 10^3/uL (0.0-0.5); HEMATOCRIT 31.8 % (36.0-47.0); HEMOGLOBIN 10.1 g/dl (12.0-15.5); LYMPH # 1.2 10^3/uL (1.5-5.0); LYMPH % 11.9 % (24.0-44.0); MEAN CORPUSCULAR HEMOGLOBIN 29.6 pg (27.0-33.0); MEAN CORPUSCULAR HGB CONC 31.8 g/dl (32.0-36.5); MEAN CORPUSCULAR VOLUME 93.3 fl (80.0-96.0); MONO % 9.6 % (2.0-8.0); NEUTROPHILS # 7.5 10^3/uL (1.5-8.5); NEUTROPHILS % 74.2 % (36.0-66.0); PLATELET COUNT, AUTOMATED 593 10^3/uL (150-450); RED BLOOD COUNT 3.41 10^6/uL (4.00-5.40); WHITE BLOOD COUNT 10.2 10^3/uL (4.0-10.0)
[2020-07-31] MEDS ORDERED: CALCIUM CARBONATE 500 MG CHEW U/D PO PRN (09:00)
[2020-07-31 09:28] LABS: ALBUMIN 1.9 GM/DL (3.2-5.2); BILIRUBIN,TOTAL 0.2 MG/DL (0.2-1.0); CALCIUM LEVEL 8.6 MG/DL (8.8-10.2); CREATININE FOR GFR 1.98 MG/DL (0.55-1.30); GLOMERULAR FILTRATION RATE 26.5 (>39); MAGNESIUM LEVEL 2.7 MG/DL (1.8-2.4); POTASSIUM SERUM 4.5 MEQ/L (3.5-5.1)
[2020-07-31] MEDS: HumaLOG INSULIN (NovoLOG) PER UNIT SC SCH ×4 (09:54→21:00)
[2020-07-31] MEDS: POTASSIUM CHLORIDE 10 MEQ SR TABLET PO SCH (09:54)
[2020-07-31] MEDS: LEVEMIR (INSULIN DETEMIR) 1 UNITS/0.01ML SC SCH ×2 (09:54→22:08)
[2020-07-31] MEDS: FUROSEMIDE 40 MG TAB PO SCH ×2 (09:55→17:21)
[2020-07-31] MEDS: guaiFENesin ER 600 MG TAB PO SCH ×2 (09:55→22:07)
[2020-07-31] MEDS: IRON POLYSAC (NIFEREX) 150 MG CAP PO SCH ×2 (09:55→22:07)
[2020-07-31] MEDS: CYANOCOBALAMIN 500 MCG TAB PO SCH (09:55)
[2020-07-31] MEDS: ASCORBIC ACID 500 MG TAB PO SCH (09:55)
--- NOTE | 2020-07-31 11:54 | IPNPDOC ---
Text Note Date of Service The patient was seen on 07/31/20. NOTE Subjective: No any acute events overnight. Patient stated that her nausea mar kedly improved, her breathing is better. Objective: GENERAL APPEARANCE: Ill looking female HEENT: no scleral icterus, no JVD, EOMI CARDIOVASCULAR: S1S2 LUNGS: Diminished lung sounds bilaterally ABDOMEN: soft & not tender w palpitation MUSCULOSKELETAL: No cyanosis, no swelling INTEGUMENT: no generalized pallor NEUROLOGICAL: cranial nerve function from 2-12 intact intact, follows commands, speech not dysarthric Assessment and plan Patient is a 70 year old female with DM, hypertension, and renal artery stenosis who presents with bilateral lower extremity edema and found to have hypertensive urgency, acute kidney injury, CHF, and troponin increase. She was then subsequently found to have multiple lytic lesions (skull, thoracic cavity, lumbar spine), right breast cancer, and bilateral pleural effusions. Acute hypoxemic respiratory failure Secondary to pleural effusion secondary to diastolic CHF exacerbation superimposed with possible malignant effusion Echo showed EF 50 to 55% with grade 1 [place] [address] Continue Lasix IV Continue high flow oxygen BNP from 07/16/20 [id number] Patient' requirements 30 L Vapotherm FiO2 90% CT showed Enlarging pleural effusions and increasing compressive atelectasis, infiltrates and interstitial edema on 07/18/20 Thoracocentesis was done on 07/18/20 ,pleural fluid transudate. Pleura VAC was placed. I talked to Dr. Henson, he recommended to aspirate no more than 200cc of fluid in one time in order to prevent acute reexpansion of pulmonary edema On 07/18/20 pleural fluid positive for Staphylococcus capitis, most likely c ontamination. Patient does not have leukocytosis, afebrile. Second set of pleural fluid negative for culture Continue drain pleural fluid. pigtail catheter was placed on 07/22/20 to drain right pleural effusion, 600 mL was drained Pain management On 07/23/20 patient developed leukocytosis with neutrophils 89%, patient afebrile. I started cefepime IV empirically. Chest x-ray showed The left pleural effusion appears slightly larger. The right pleural effusion is unchanged.The left pleural pigtail drainage catheter has been removed. This is unchanged Procalcitonin 0.58 which indicates antibiotic therapy blood culture results on 07/24/20 negative for 24 hours. Leukocytosis improved to 10.6 On 07/25/20 chest catheter was removed on the left side and right-side Procalcitonin 0.86 On 07/26/20 patient afebrile, no leukocytosis. I discontinued cefepime Pt's oxygen requirements 3 L via nasal cannula On 07/28/20 Improved aeration with decreased lower lobe opacities and decreased pleural fluid. Oxygen requirements around 2 L by nasal cannula On 07/29/20 patient was on 2 L by nasal cannula with oxygen saturation around 95- 96% On 07/30/20 chest x-ray showed The cardiomediastinal silhouette is unchanged. Bibasilar opacities are noted status quo. There is bilateral CP angle blunting status quo. There are no new abnormal opacities. Acute re-expansion pulmonary edema Complication from right thoracentesis on 07/10/2020. Pleural fluid is transudate Continue diuresis with decreased dose of Lasix, DC metolazone Acute diastolic CHF Echo showed Normal LV size with mild left ventricular hypertrophy (LVH), septal wall motion abnormality related to LBBB and overall left ventricular ejection fraction (LVEF) estimated at 50% to 55%. Grade 1 diastolic dysfunction I's and O's, fluid restriction 07/22/20 Echo showed left ventricular (LV) diastolic dysfunction with a dilated left atrium with concentric left ventricular hypertrophy and a mildly dilated right ventricle with a very small pericardial effusion posteriorly without compression with an estimated right ventricular systolic pressure of 15 mmHg, ejection fraction of 60% Anemia of chronic diseases Hemoglobin stable Status post transfusion of 1 unit of blood on 07/25/20 stool for occult blood negative Acute kidney injury Stable. creatinine 1.98 We decreased her dose of Lasix 40 mg by mouth continue to monitor Type 2 diabetes I increased the dose of detemir to 6 units twice a day for better control glucose level Insulin sliding scale Diabetes diet Breast cancer stage IV pathology report shows breast carcinoma I talked to Dr. Araiza for did consult on 07/09, I told him that patient agree to start treatment with aromatase inhibitors. Oncology team recommended to start treatment in the outpatient settings Acute urinary retention -will continue Hernandez for accurate I/O's Right renal artery stenosis -Seen on retroperitoneal US on 10/26/2016 Hypertension Norvasc and hydralazine on hold due to intensive diuresis. Blood pressure stable Hypertensive urgency Resolved Elevated troponin Most likely demand ischemia Troponin trended down Gait instability Patient has history of gait instability. MRI spine showed There is diffuse heterogeneous signal intensity of the visualized bone marrow of the lumbar, lower thoracic, and upper sacral spine. This is concerning for metastatic disease. Myeloma is within the differential. Deg enerative changes are noted at multiple lumbar and lower thoracic levels, as described above. No significant spinal canal stenosis at any lumbar level. There is no bone marrow compression according to MRI PT/OT Hypothyroidism Continue levothyroxine Right leg swelling/right arm swelling Doppler ultrasound negative for DVT Cachexia Patient stated that her weight decreased around 20 pounds past year She has reduced muscle mass with temporal wasting and low albumin [employer] assessment Constipation Continue senna, MiraLAX, Dulcolax Persistent nausea/vomiting Multifactorial, could be attributed to pain medications, malignancy, kidney failure I intensified nausea medication regimen, added prochlorperazine IV, increase interval between pain medication Continue to monitor QTC prolongation on EKG Palliative care encounter Overall prognosis is poor Palliative care on board. Depression I started fluoxetine DVT ppx Lovenox 30 mg subcutaneously VS,Fishbone, I+O VS, Fishbone, I+O Laboratory Tests 07/31/20 08:26 Vital Signs Date Time Temp Pulse Resp B/P (MAP) Pulse Ox O2 Delivery O2 Flow Rate FiO2 07/31/20 09:55 45 152/70 07/31/20 08:00 97.7 14 93 Nasal Cannula 2.0 07/29/20 20:15 28 I&O- Last 24 Hours up to 6 AM 07/31/20 06:00 Intake Total 1050 ml Output Total 1400 ml Balance -350 ml SB NICE DO Jul 31, 2020 11:54
[2020-07-31] MEDS: ENOXAPARIN 30MG/0.3ML SYRINGE (J1650 PER 10MG) SC SCH (14:07)
[2020-07-31] MEDS: FLUoxetine 10 MG CAP PO SCH (22:08)
[2020-08-01] MEDS: LEVALBUTEROL 1.25 MG/0.5 ML CONCENTRATE NEB NEB SCH ×2 (01:06→08:00)
[2020-08-01] MEDS: SLF 3 ML SYR IV SCH (05:45)
[2020-08-01] MEDS: LEVOTHYROXINE 75MCG TABLET (0.075MG) PO SCH (05:45)
[2020-08-01] MEDS: ACETAMINOPHEN TAB 650MG DOSE (2X325MG) PO PRN (05:51)
[2020-08-01 06:00] VITALS: BP 169/72
[2020-08-01] MEDS: HumaLOG INSULIN (NovoLOG) PER UNIT SC SCH (08:14)
[2020-08-01] MEDS: LEVEMIR (INSULIN DETEMIR) 1 UNITS/0.01ML SC SCH (08:14)
[2020-08-01] MEDS: POTASSIUM CHLORIDE 10 MEQ SR TABLET PO SCH (08:15)
[2020-08-01] MEDS: CYANOCOBALAMIN 500 MCG TAB PO SCH (08:15)
[2020-08-01] MEDS: ASCORBIC ACID 500 MG TAB PO SCH (08:16)
[2020-08-01] MEDS: guaiFENesin ER 600 MG TAB PO SCH (08:16)
[2020-08-01] MEDS: ASPIRIN 81MG ENTERIC TABLET PO PRN (08:19)
[2020-08-01] MEDS: IRON POLYSAC (NIFEREX) 150 MG CAP PO SCH (08:19)
[2020-08-01] MEDS ORDERED: FUROSEMIDE 40 MG TAB PO SCH (09:00)
[2020-08-01] MEDS ORDERED: CALC-190 PO (10:23)
[2020-08-01] MEDS ORDERED: IRON65TA2 PO (10:23)
[2020-08-01 10:30] VITALS: BP 125/52
[2020-08-01] MEDS ORDERED: **hydrALAZINE** 10 MG TAB PO ONE (10:45)
[2020-08-01 10:57] VITALS: BP 125/52
--- NOTE | 2020-08-01 14:26 | DS.PDOC ---
Discharge Summary General Date of Admission Jul 07, 2020 at 23:06 Date of Discharge 08/01/20 Discharge Summary PROCEDURES PERFORMED DURING STAY: [None]. ADMITTING DIAGNOSES: Acute hypoxemic respiratory failure Acute re-expansion pulmonary edema Acute diastolic CHF Anemia of chronic diseases Acute kidney injury Type 2 diabetes Acute urinary retention Breast cancer stage IV Right renal artery stenosis Hypertension Hypertensive urgency Elevated troponin Gait instability Hypothyroidism Right leg swelling/right arm swelling Cachexia Constipation Persistent nausea/vomiting Depression Palliative care encounter DISCHARGE DIAGNOSES: Acute hypoxemic respiratory failure Acute re-expansion pulmonary edema Acute diastolic CHF Anemia of chronic diseases Acute kidney injury Type 2 diabetes Acute urinary retention Breast cancer stage IV Right renal artery stenosis Hypertension Hypertensive urgency Elevated troponin Gait instability Hypothyroidism Right leg swelling/right arm swelling Cachexia Constipation Persistent nausea/vomiting Depression Palliative care encounter COMPLICATIONS/CHIEF COMPLAINT: Edson,Chf,Demand Ischemia,Elevated Trop onin,Hyperurg. HISTORY OF PRESENT ILLNESS: Patient is a 70 year old female with DM, hypertension, and renal artery stenosis who presents with bilateral lower extremity edema and found to have hypertensive urgency, acute kidney injury, CHF, and troponin increase. She was then subsequently found to have multiple lytic lesions (skull, thoracic cavity, lumbar spine), right breast cancer, and bilateral pleural effusions. HOSPITAL COURSE: During the hospital stay following issue addressed Acute hypoxemic respiratory failure Secondary to pleural effusion secondary to diastolic CHF exacerbation superimp osed with possible malignant effusion Echo showed EF 50 to 55% with grade 1 diastolic [place] [address] Patient received Lasix IV BNP from 07/16/20 16615 Patient' requirements 30 L Vapotherm FiO2 90% CT showed Enlarging pleural effusions and increasing compressive atelectasis, infiltrates and interstitial edema on 07/18/20 Thoracocentesis was done on 07/18/20 ,pleural fluid transudate. Pleura VAC was placed. I talked to Dr. Henson, he recommended to aspirate no more than 200cc of fluid in one time in order to prevent acute reexpansion of pulmonary edema On 07/18/20 pleural fluid positive for Staphylococcus capitis, most likely contamination. Patient does not have leukocytosis, afebrile. Second set of pleural fluid negative for culture Continue drain pleural fluid. pigtail catheter was placed on 07/22/20 to drain right pleural effusion, 600 mL was drained Pain management On 07/23/20 patient developed leukocytosis with neutrophils 89%, patient afebrile. I started cefepime IV empirically. Chest x-ray showed The left pleural effusion appears slightly larger. The right pleural effusion is unchanged.The left pleural pigtail drainage catheter has been removed. This is unchanged Procalcitonin 0.58 which indicates antibiotic therapy blood culture results on 07/24/20 negative for 24 hours. Leukocytosis improved to 10.6 On 07/25/20 chest catheter was removed on the left side and right-side Procalcitonin 0.86 On 07/26/20 patient afebrile, no leukocytosis. I discontinued cefepime Pt's oxygen requirements 3 L via nasal cannula On 07/28/20 Improved aeration with decreased lower lobe opacities and decreased pleural fluid. Oxygen requirements around 2 L by nasal cannula On 07/29/20 patient was on 2 L by nasal cannula with oxygen saturation around 95- 96% On 07/30/20 chest x-ray showed The cardiomediastinal silhouette is unchanged. Bibasilar opacities are noted status quo. There is bilateral CP angle blunting status quo. There are no new abnormal opacities. Acute re-expansion pulmonary edema Complication from right thoracentesis on 07/10/2020. Pleural fluid is transudate Continue diuresis with decreased dose of Lasix, DC metolazone Acute diastolic CHF Echo showed Normal LV size with mild left ventricular hypertrophy (LVH), septal wall motion abnormality related to LBBB and overall left ventricular ejection fraction (LVEF) estimated at 50% to 55%. Grade 1 diastolic dysfunction I's and O's, fluid restriction 07/22/20 Echo showed left ventricular (LV) diastolic dysfunction with a dilated left atrium with concentric left ventricular hypertrophy and a mildly dilated right ventricle with a very small pericardial effusion posteriorly without compression with an estimated right ventricular systolic pressure of 15 mmHg, ejection fraction of 60% Anemia of chronic diseases Hemoglobin stable Status post transfusion of 1 unit of blood on 07/25/20 stool for occult blood negative Acute kidney injury Stable. creatinine 1.98 We decreased her dose of Lasix 40 mg by mouth continue to monitor Type 2 diabetes I increased the dose of detemir to 6 units twice a day for better control glucose level Insulin sliding scale Diabetes diet Breast cancer stage IV pathology report shows breast carcinoma I talked to Dr. Araiza for did consult on 07/09, I told him that patient agree to start treatment with aromatase inhibitors. Oncology team recommended to start treatment in the outpatient settings Acute urinary retention resolved after Hernandez Right renal artery stenosis -Seen on retroperitoneal US on 10/26/2016 Hypertension Norvasc and hydralazine on hold due to intensive diuresis. Blood pressure stable Hypertensive urgency Resolved Elevated troponin Most likely demand ischemia Troponin trended down Gait instability Patient has history of gait instability. MRI spine showed There is diffuse heterogeneous signal intensity of the visualized bone marrow of the lumbar, lower thoracic, and upper sacral spine. This is concerning for metastatic disease. Myeloma is within the differential. Degenerative changes are noted at multiple lumbar and lower thoracic levels, as described above. No significant spinal canal stenosis at any lumbar level. There is no bone marrow compression according to MRI PT/OT Hypothyroidism Continue levothyroxine Right leg swelling/right arm swelling Doppler ultrasound negative for DVT Cachexia Patient stated that her weight decreased around 20 pounds past year She has reduced muscle mass with temporal wasting and low albumin Ensure Constipation Continue senna, MiraLAX, Dulcolax Persistent nausea/vomiting Multifactorial, could be attributed to pain medications, malignancy, kidney failure I intensified nausea medication regimen, added prochlorperazine IV, increase interval between pain medication Continue to monitor QTC prolongation on EKG Palliative care encounter Overall prognosis is poor Palliative care on board. Depression I started fluoxetine DVT ppx Lovenox 30 mg subcutaneously DISCHARGE MEDICATIONS: Please see below. ALLERGIES: Please see below. PHYSICAL EXAMINATION ON DISCHARGE: VITAL SIGNS: Please see below. GENERAL APPEARANCE: Ill looking female HEENT: no scleral icterus, no JVD, EOMI CARDIOVASCULAR: S1S2 LUNGS: Diminished lung sounds bilaterally ABDOMEN: soft & not tender w palpitation MUSCULOSKELETAL: No cyanosis, no swelling INTEGUMENT: no generalized pallor NEUROLOGICAL: cranial nerve function from 2-12 intact intact, follows commands, speech not dysarthric LABORATORY DATA: Please see below. IMAGING: See above PROGNOSIS: Poor ACTIVITY: [As tolerated]. DIET: Regular DISPOSITION: 62 D/T Rehab Facility. ITEMS TO FOLLOWUP ON ON OUTPATIENT: Follow-up with oncologist, and PCP DISCHARGE CONDITION: [Stable]. TIME SPENT ON DISCHARGE:60minutes. Vital Signs/I&Os Vital Signs Date Time Temp Pulse Resp B/P (MAP) Pulse Ox O2 Delivery O2 Flow Rate FiO2 08/01/20 10:57 125/52 08/01/20 08:15 63 08/01/20 06:00 97.7 19 98 Room Air 07/31/20 12:00 1.0 07/29/20 20:15 28 I&O- Last 24 Hours up to 6 AM 08/01/20 06:00 Intake Total 1597 ml Output Total 675 ml Balance 922 ml Laboratory Data Labs 24H Laboratory Tests 2 07/31/20 17:11: Bedside Glucose (Misc Panel) 211H 07/31/20 20:03: Bedside Glucose (Misc Panel) 201H 08/01/20 06:05: Bedside Glucose (Misc Panel) 132H FSBS Laboratory Tests Test 07/31/20 17:11 07/31/20 20:03 08/01/20 06:05 Range/Units Bedside Glucose (Misc Panel) 211 201 132 83-110 MG/DL Microbiology Microbiology 07/25/20 Stool Occult Blood (CARINA) - Final, Complete 07/23/20 Blood Culture - Final, Complete NO GROWTH AFTER 5 DAYS 07/23/20 Blood Culture - Final, Complete NO GROWTH AFTER 5 DAYS Discharge Medications Scheduled Amlodipine Besylate (Amlodipine Besylate) 10 Mg Tablet, 10 MG PO DAILY Ascorbic Acid (Vitamin C) 500 Mg Tablet, 500 MG PO DAILY, (Reported) Blue-Green Algae (Spirulina) 500 Mg Tablet, 500 MG PO DAILY, (Reported) Calcium Carbonate/Vitamin D3 (Calcium 1,000 + D3 Caplet) 1 Each Tablet, 1 TAB PO DAILY Cholecalciferol (Vitamin D3) (Vitamin D3) 10 Mcg Capsule, 10 MCG PO DAILY, (Re ported) Cyanocobalamin (Vitamin B-12) (Vitamin B-12) 500 Mcg Tablet, 500 MCG PO DAILY, (Reported) Ferrous Sulfate (Iron) 325 Mg Tablet, 1 TAB PO DAILY Fluoxetine Hcl (Fluoxetine HCl) 10 Mg Capsule, 10 MG PO QHS Grape Seed Extract (Grape Seed Extract) 50 Mg Capsule, 50 MG PO DAILY, (Reported) Levothyroxine Sodium (Levothyroxine Sodium) 75 Mcg Tablet, 75 MCG PO DAILY@06 Magnesium (Magnesium) 250 Mg Tablet, 250 MG PO QHS, (Reported) Metformin HCl (Metformin ER Gastric) 1,000 Mg [id number], 1,000 MG PO DAILY, (Reported) Methylsulfonylmethane (Msm) 500 Mg Capsule, 500 MG PO QHS, (Reported) Ondansetron HCl (Zofran) 4 Mg Tablet, 4 MG PO TID Potassium Gluconate (Potassium) 99 Mg Tablet, 595 MG PO QHS, (Reported) Torsemide (Torsemide) 5 Mg Tablet, 5 MG PO DAILY Vitamin B Complex (Vitamin B Complex) 1 Each Tablet, 1 TAB PO DAILY, (Reported) Scheduled PRN Aspirin (Aspirin EC) 81 Mg Tablet.dr, 81 MG PO BID PRN for PAIN, (Reported) Bisacodyl (Bisacodyl) 10 Mg Supp.rect, 10 MG CA DAILYPRN PRN for CONSTIPATION Docusate Sodium (Dok) 100 Mg Capsule, 100 MG PO DAILYPRN PRN for CONSTIPATION Polyethylene Glycol 3350 (Polyethylene Glycol 3350) 17 Gm Powd.pack, 1 PKT PO DAILYPRN PRN for CONSTIPATION Prochlorperazine (Prochlorperazine Maleate) 5 Mg Tablet, 10 MG PO Q8HP PRN for NAUSEA OR VOMITING Senna (Senna Lax) 8.6 Mg Tablet, 2 TAB PO DAILYPRN PRN for CONSTIPATION Allergies Coded Allergies: Penicillins (Verified Allergy, Mild, rash, 07/07/20) SB NICE DO Aug 01, 2020 14:26
== END 2020-08-01 12:00 | DRG 291 ==
LOC: M ED 17:25 → M ED INP 23:06 → ENRESERV 23:24 → M PCU 07-08 01:10 → M MSPAV 07-31 16:52
PROVIDERS: ADMIT Internal Medicine; ATTEND Internal Medicine
PROC: 0W993ZX Drainage of Right Pleural Cavity, Percutaneous Approach, Diagnostic (ICD-10-PCS; principal; 2020-07-10 10:28)
PROC: 0HBT3ZX Excision of Right Breast, Percutaneous Approach, Diagnostic (ICD-10-PCS; 2020-07-15)
PROC: 0W9B30Z Drainage of Left Pleural Cavity with Drainage Device, Percutaneous Approach (ICD-10-PCS; 2020-07-18)
PROC: 30233J1 Transfusion of Nonautologous Serum Albumin into Peripheral Vein, Percutaneous Approach (ICD-10-PCS; 2020-07-19)
PROC: 0W9930Z Drainage of Right Pleural Cavity with Drainage Device, Percutaneous Approach (ICD-10-PCS; 2020-07-21)
PROC: 30233N1 Transfusion of Nonautologous Red Blood Cells into Peripheral Vein, Percutaneous Approach (ICD-10-PCS; 2020-07-25)
DX: I13.0 Hypertensive heart and chronic kidney disease with heart failure and stage 1 through stage 4 chronic kidney disease, or unspecified chronic kidney disease (principal); I50.33 Acute on chronic diastolic (congestive) heart failure; J96.01 Acute respiratory failure with hypoxia; J81.0 Acute pulmonary edema; I24.8 Other forms of acute ischemic heart disease; N17.9 Acute kidney failure, unspecified; C79.51 Secondary malignant neoplasm of bone; C79.31 Secondary malignant neoplasm of brain; R64 Cachexia; J90 Pleural effusion, not elsewhere classified; E11.22 Type 2 diabetes mellitus with diabetic chronic kidney disease; E55.9 Vitamin D deficiency, unspecified; Z66 Do not resuscitate; R29.6 Repeated falls; C50.911 Malignant neoplasm of unspecified site of right female breast; R33.9 Retention of urine, unspecified; K59.00 Constipation, unspecified; R11.2 Nausea with vomiting, unspecified; I27.20 Pulmonary hypertension, unspecified; E88.09 Other disorders of plasma-protein metabolism, not elsewhere classified; D63.8 Anemia in other chronic diseases classified elsewhere; I16.0 Hypertensive urgency; M79.89 Other specified soft tissue disorders; R26.89 Other abnormalities of gait and mobility; I70.1 Atherosclerosis of renal artery; N18.30 Chronic kidney disease, stage 3 unspecified; E11.65 Type 2 diabetes mellitus with hyperglycemia; E03.9 Hypothyroidism, unspecified; Z91.14 Patient's other noncompliance with medication regimen; Z79.899 Other long term (current) drug therapy; Z88.0 Allergy status to penicillin; Z20.822 Contact with and (suspected) exposure to COVID-19

== ENCOUNTER 2020-08-13 09:16 | Inpatient (IN) | payer MEDICARE, OTHER ==
[~2020-08-13] VITALS: Ht 167.6 cm; Wt 61.8 kg
[~2020-08-13 09:16] MED LIST: ALEV220T22 PO; AMLO1TAB25 PO; ASPI-161 PO; BISA10SU PR; C 50TAB PO; CALC-190 PO; DOK1CAP7 PO; EQL400CA9 PO; FLUO10CA16 PO; GRAP50CA3 PO; IRON65TA2 PO; LEVO75TA4 PO; MAGN250T22 PO; METF-818 PO; MSM500CA4 PO; POLY17PO18 PO; POTA99TA14 PO; PROC5TAB57 PO; SENN18TA PO; SPIR500T PO; TORS5TAB2 PO; VITA-172 PO; VITATAB73 PO; ZOFR4TAB16 PO
[2020-08-13 10:35] LABS: BASO # 0.1 10^3/uL (0.0-0.2); BASO % 0.7 % (0.0-1.0); EOS # 0.1 10^3/uL (0.0-0.5); EOS % 1.6 % (0.0-3.0); HEMATOCRIT 31.9 % (36.0-47.0); HEMOGLOBIN 10.3 g/dl (12.0-15.5); LYMPH % 14.6 % (24.0-44.0); MEAN CORPUSCULAR HEMOGLOBIN 29.1 pg (27.0-33.0); MEAN CORPUSCULAR HGB CONC 32.3 g/dl (32.0-36.5); MEAN CORPUSCULAR VOLUME 90.1 fl (80.0-96.0); MONO # 0.6 10^3/uL (0.0-0.8); MONO % 8.6 % (2.0-8.0); NEUTROPHILS % 74.2 % (36.0-66.0); PLATELET COUNT, AUTOMATED 332 10^3/uL (150-450); RED BLOOD COUNT 3.54 10^6/uL (4.00-5.40); WHITE BLOOD COUNT 6.8 10^3/uL (4.0-10.0)
[2020-08-13] MEDS ORDERED: FUROSEMIDE 40MG/4ML VIAL (J1940) IV ONE (10:40)
[2020-08-13 11:07] LABS: ALBUMIN 2.3 GM/DL (3.2-5.2); ALT/SGPT 20 U/L (12-78); BILIRUBIN,DIRECT < 0.1 MG/DL (0.0-0.2); BILIRUBIN,TOTAL 0.2 MG/DL (0.2-1.0); BLOOD UREA NITROGEN 39 MG/DL (7-18); CALCIUM LEVEL 9.2 MG/DL (8.8-10.2); CARBON DIOXIDE LEVEL 30 MEQ/L (21-32); CHLORIDE LEVEL 102 MEQ/L (98-107); CK-MB VALUE MASS 2.1 NG/ML (<3.6); CPK CREATINE PHOSPHOKINASE 63 U/L (26-192); GLOMERULAR FILTRATION RATE 33.8 (>39); GLUCOSE, FASTING 329 MG/DL (70-100); MB/CK RELATIVE INDEX 3.33 (< OR =4); NT-PRO BNP 18405 PG/ML (<125); POTASSIUM SERUM 5.3 MEQ/L (3.5-5.1); SODIUM LEVEL 136 MEQ/L (136-145); TOTAL PROTEIN 5.6 GM/DL (6.4-8.2); TROPONIN I 0.03 NG/ML (< 0.10)
--- NOTE | 2020-08-13 11:31 | REP ---
INDICATION: DYSPNEA/COUGH. COMPARISON: 07/30/2020. TECHNIQUE: Single portable AP view of the chest was performed. FINDINGS: Heart size is not well evaluated. The pulmonary vasculature appears increased. There are increased bilateral pleural effusions as well as adjacent atelectasis/infiltrate. IMPRESSION: Moderate to large bilateral pleural effusions which have increased since the prior study. There is adjacent bilateral increased atelectasis/infiltrate as well as vascular congestion. <Electronically signed by Stephane Vargas > 08/13/20 [id number]
[2020-08-13 11:35] LABS: RSV AMPLIFICATION NEGATIVE (NEGATIVE)
--- NOTE | 2020-08-13 12:20 | REP ---
INDICATION: effusion/chf COMPARISON: 07/18/2020 and 07/10/2020 TECHNIQUE: Limited noncontrast enhanced helical technique FINDINGS: Note is again made of large bilateral pleural effusions with compressive subsegmental atelectatic changes in the lung fuentes status quo. Limited evaluation of the mediastinum and pulmonary monika show no significant changes. Adenopathy is suspected but difficult to evaluate without intravenous contrast administration. There is no significant change in the imaged upper abdomen or the imaged osseous structures. Extensive axial and appendicular skeletal lytic and blastic lesions are again noted Evaluation of the lung fuentes shows no significant changes from the prior exam with the exception of slight improvement in the left hilar subsegmental atelectatic change seen previously. IMPRESSION: No significant change from 07/18/2020 with findings as described above. <Electronically signed by Kunal Solorzano > 08/13/20 4220
[2020-08-13] MEDS ORDERED: SIME125C4 PO (12:28)
[2020-08-13] MEDS ORDERED: ONDA-83 PO (12:28)
[2020-08-13] MEDS ORDERED: MIRA3350 PO (12:28)
[2020-08-13] MEDS ORDERED: FERR1TAB8 PO (12:28)
[2020-08-13] MEDS ORDERED: FLUO10TA2 PO (12:28)
[2020-08-13] MEDS ORDERED: LEVO75TA4 PO (12:28)
[2020-08-13] MEDS ORDERED: TORS5TAB2 PO (12:28)
[2020-08-13] MEDS ORDERED: GNP8.6TA7 PO (12:28)
[2020-08-13] MEDS ORDERED: THIA100T7 PO (12:28)
[2020-08-13] MEDS ORDERED: ACET-910 PO (12:28)
[2020-08-13] MEDS ORDERED: AMLO1TAB25 PO (12:28)
[2020-08-13] MEDS ORDERED: METF-723 PO (12:28)
[2020-08-13] MEDS ORDERED: CALC600T17 PO (12:28)
[2020-08-13] MEDS ORDERED: MM S100C PO (12:35)
[2020-08-13] MEDS ORDERED: PROC5TAB57 PO (12:35)
[2020-08-13] MEDS ORDERED: MOM 30ML SUSPENSION UDC PO PRN (12:55)
[2020-08-13] MEDS ORDERED: SENNA 8.6 MG TAB (SENOKOT) PO PRN (12:55)
[2020-08-13 14:30] VITALS: BP 198/90
[2020-08-13] MEDS ORDERED: GLUCOSE 4GM CHEW TABLET PO PRN (15:05)
[2020-08-13] MEDS ORDERED: GLUCAGON INJ 1MG VIAL SC PRN (15:05)
--- NOTE | 2020-08-13 15:12 | HPEPDOC ---
General Date of Admission Aug 13, 2020 at 12:52 Date of Service: Aug 13, 2020 Chief Complaint The patient is a 70-year-old female admitted with a reason for visit of Chf, Pleural Effusion. History of Present Illness 70 year old female with multiple medical problems as below [facility] SOB for 3 days and new requirement of Oxygen. Patient had a prolonged hospital stay here from July 07 to August 01 for Acute diastolic CHF with bilateral pleural effusion requiring bilateral pleural pig tails with the right in for several days. Complicated by post pleural catheter reexpansion pulmonary edema on the right requiring vapotherm and prolong oxygen therapy. During that admission she was also found to have right breast cancer with bone mets. She was discharged to [facility] for rehab. She did not need any oxygen on discharge. She was not getting any diuretics at the [facility] for the first week. Patient started feeling SOB three days ago and started needing oxygen. At that point she was started on Torsemide 5 mg. However her SOB continued to worsen so was sent to the ED today. . She also complained of increased leg swelling extending up to her thighs and also on her back . Feels her calves, thighs and buttocks are stretched tight and sore. She rates the pain as 3/10, stretching kind. In the ED she was found to have bilateral pleural effusions again . She was admitted for CHF exacerbation. Home Medications Scheduled Amlodipine Besylate (Amlodipine Besylate) 10 Mg Tablet, 10 MG PO DAILY, (Reported) Ascorbic Acid (Vitamin C) 500 Mg Tablet, 500 MG PO DAILY, (Reported) Calcium Carbonate/Vitamin D3 (Calcium 600-Vit D3 400 Tablet) 1 Each Tablet, 1 TAB PO DAILY, (Reported) Carvedilol (Carvedilol) 3.125 Mg Tablet, 3.125 MG PO BID Cyanocobalamin (Vitamin B-12) (Vitamin B-12) 500 Mcg Tablet, 500 MCG PO DAILY, (Reported) Ferrous Sulfate (Ferrous Sulfate) 325 Mg Tablet, 325 MG PO DAILY, (Reported) Fluoxetine HCl (Fluoxetine HCl) 10 Mg Tablet, 10 MG PO QHS, (Reported) Insulin Detemir (Levemir) 100 Unit/1 Ml Vial, 15 UNITS SC QHS Insulin Human Lispro (Humalog) 100 Unit/1 Ml Vial, 0 UNITS SC ACHS Based on [facility] Sliding scale Levothyroxine Sodium (Levothyroxine Sodium) 75 Mcg Tablet, 75 MCG PO QAM, (Reported) Magnesium (Magnesium) 250 Mg Tablet, 250 MG PO QHS, (Reported) Thiamine HCl (Thiamine HCl) 100 Mg Tablet, 100 MG PO DAILY, (Reported) Torsemide (Torsemide) 20 Mg Tablet, 1 TAB PO BID Scheduled PRN Acetaminophen (Acetaminophen) 325 Mg Tablet, 650 MG PO Q6H PRN for PAIN / FEVER, (Reported) Docusate Sodium (Stool Softener) 100 Mg Capsule, 100 MG PO DAILY PRN for CONSTIPATION, (Reported) Ondansetron HCl (Ondansetron HCl) 4 Mg Tablet, 4 MG PO AC PRN for NAUSEA OR VOMITING, (Reported) Polyethylene Glycol 3350 (Miralax) 119 Gm Powder, 17 GM PO DAILY PRN for CONSTIPATION, (Reported) dilute in 8 ounces of water or juice Sennosides (Senna Lax) 8.6 Mg Tablet, 2 TAB PO DAILY PRN for CONSTIPATION, (Reported) Simethicone (Gas-X) 125 Mg Capsule, 125 MG PO Q6H PRN for GAS PAIN, (Reported) Allergies Coded Allergies: Penicillins (Verified Allergy, Mild, rash, 07/07/20) Past Medical History Medical History Right breast invasive lobular cancer with involvement of dermis with bone mets diagnosed in June 2020 Diastolic CHF with bilateral pleural effusions Moderate pulmonary hypertension with right heart failure Diabetes mellitus type 2 with nephropathy Right renal artery stenosis (diagnosed 2017 by ultrasound). HTN Hypothyroid depression CKD stage 3 Anemia of chronic disease Vitamin D deficiency. Chronic instability of right knee. Gait instability Protein calorie malnutrition Reexpansion Pulmonary edema Complication from right thoracentesis on 07/10/2020. Surgical History Breast Biopsy June 2020 Bilateral pig tail placements in lungs. Tonsillectomy 1962 Appendectomy 1962 Laparoscopy - endometriosis 1997 Arthroscopic knee surgery, right 2015 Family History Son alive- healthy 4 brothers, 1 sister healthy Social History * Smoker: non-smoker Alcohol: Denies Drugs: denies A-FIB/CHADSVASC A-FIB History Current/History of A-Fib/PAF?: No Review of Systems Constitutional: Reports: Weakness, Fatigue, Weight Loss; Denies: Chills, Fever, Night Sweats Eyes: Denies: Pain, Vision change ENT: Denies: Head Aches, Ear Pain, Dysphagia Skin: Denies: Rash, Lesions, Breakdown Pulmonary: Reports: Dyspnea, Cough Cardiovascular: Reports: Edema; Denies: Chest Pain, Palpitations, Orthopnea Gastrointestinal: Denies: Nausea, Vomiting, Abdominal Pain, Diarrhea Genitourinary: Denies: Dysuria, Frequency, Incontinence, Retention Hematologic: Denies: Bruising, Bleeding Excessively Physical Examination General Exam: Positive: Alert, Cooperative, No Acute Distress Eye Exam: Positive: PERRLA, Conjunctiva & lids normal, EOMI; Negative: Sclera icteric ENT Exam: Positive: Atraumatic, Mucous membr. moist/pink, Pharynx Normal Neck Exam: Positive: Supple, JVD; Negative: thyromegaly Chest Exam: Positive: Diminished (at both the bases), Other (Bilateral basal crackles) Heart Exam: Positive: Rate Normal, Regular Rhythm, Normal S1, Normal S2; Negative: Murmurs, Rubs Abdomen Exam: Positive: Normal bowel sounds, Soft; Negative: Tenderness, Hepatospenomegaly Extremity Exam: Positive: Edema (extending to the knees and also inthe upper thighs , buttocks.), Normal pulses; Negative: Clubbing, Cyanosis Vital Signs Vital Signs Date Time Temp Pulse Resp B/P (MAP) Pulse Ox O2 Delivery O2 Flow Rate FiO2 08/13/20 13:00 69 85 08/13/20 12:15 178/83 (114) 08/13/20 09:27 Room Air 2.0 08/13/20 09:27 97.4 20 Laboratory Data Labs 24H Laboratory Tests 2 08/13/20 10:21: Immature Granulocyte % (Auto) 0.3, Neutrophils (%) (Auto) 74.2H, Lymphocytes (%) (Auto) 14.6L, Monocytes (%) (Auto) 8.6H, Eosinophils (%) (Auto) 1.6, Basophils (%) (Auto) 0.7, Neutrophils # (Auto) 5.0, Lymphocytes # (Auto) 1.0L, Monocytes # (Auto) 0.6, Eosinophils # (Auto) 0.1, Basophils # (Auto) 0.1, Nucleated Red Blood Cells % (auto) 0.0, Anion Gap 4L, Glomerular Filtration Rate 33.8L, Luigi cium Level 9.2, Total Bilirubin 0.2, Direct Bilirubin < 0.1, Aspartate Amino Transf (AST/SGOT) 19, Alanine Aminotransferase (ALT/SGPT) 20, Alkaline Phosphatase 218H, Total Creatine Kinase 63, Creatine Kinase MB 2.1, Creatine Kinase MB Relative Index 3.33, Troponin I 0.03, [id number]-Type Natriuretic P eptide 55833T, Total Protein 5.6L, Albumin 2.3L, Albumin/Globulin Ratio 0.7L, Thyroid Stimulating Hormone (TSH) 4.420H 08/13/20 10:30: Coronavirus (COVID-19)(PCR) NEGATIVE, Influenza Type A (RT-PCR) NEGATIVE, Influenza Type B (RT-PCR) NEGATIVE, Respiratory Syncytial Virus (PCR) NEGATIVE CBC/BMP Laboratory Tests 08/13/20 10:21 Assessment/Plan 70 year old female with multiple medical problems as below presented from [place] [facility] for SOB for 3 days and new requirement of Oxygen. Patient had a prolonged hospital stay here from July 07 to August 01 for Acute diastolic CHF with bilateral pleural effusion requiring bilateral pleural pig tails with the right in for several days. Complicated by post pleural catheter reexpansion pulmonary edema on the right requiring vapotherm and prolong oxygen therapy. During that admission she was also found to have right breast cancer with bone mets. She was discharged to [facility] for rehab. She did not need any oxygen on discharge. She was not getting any diuretics at the [facility] for the first week. Patient started feeling SOB three days ago and started needing oxygen. At that point she was started on Torsemide 5 mg. However her SOB continued to worsen so was sent to the ED today. In the ED she was found to have bilateral pleural effusions again . She was admitted for CHF exacerbation. Diastolic CHF exacerbation will start IV lasix I/O, 2 gm sodium diet, fluid restriction 1.5 liters. Bilateral pleural effusion Pleural fluid study from the previous admission was negative for malignant cells This is due to CHF exacerbation If does not improve with the Lasix. Will send for thoracocentesis tomorrow She did have a lung reexpansion pulmonary edema after massive thoracocentesis was off 1.9 L of fluid with them over during last admission from the right. Diabetes A1c in June 10.5 Levemir and lispro Fingersticks before meals and at bedtime Radha vs CKD stage 3 Creatinine 1.6. This is better than last discharge creatinine of 1.9 Will continue with Lasix Protein calorie malnutrition With bilateral temporal wasting and wasting of small muscles of the hand and leg Albumin 2.3 I think her BMI is falsely elevated due to fluid overload Her body weight is up by 7 kg from her discharge weight 2 weeks ago HTN Amlodipine and Lasix Hypothyroid Synthroid Depression Fluoxetine Anemia of chronic disease and also had an deficiency TSAT is low, ferritin of 100 will continue ferrous sulphate. Metastatic breast. Breast cancer , ER positive, AK positive, HER negative Diagnosed in June metastases to bone Needs to follow up with oncologist in outpatient Plan / VTE VTE Prophylaxis Ordered?: Yes MARIELLA SANCHES MD Aug 13, 2020 14:07
[2020-08-13 16:00] VITALS: BP 191/88
[2020-08-13] MEDS ORDERED: FUROSEMIDE 40MG/4ML VIAL (J1940) IV SCH (17:00)
[2020-08-13] MEDS: FUROSEMIDE 40MG/4ML VIAL (J1940) IV SCH ×2 (17:14→20:09)
[2020-08-13] MEDS: HumaLOG INSULIN (NovoLOG) PER UNIT SC SCH ×2 (18:15→20:11)
[2020-08-13 20:00] VITALS: BP 177/84
[2020-08-13] MEDS: FLUoxetine 10 MG CAP PO SCH (20:10)
[2020-08-13] MEDS: DOCUSATE SODIUM 100MG CAPSULE PO SCH (20:10)
[2020-08-13] MEDS: amLODIPine 5 MG TAB PO SCH (20:16)
[2020-08-13] MEDS ORDERED: LEVEMIR (INSULIN DETEMIR) 1 UNITS/0.01ML SC SCH (21:00)
--- NOTE | 2020-08-13 23:01 | ECGEPIP ---
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
[2020-08-14] VITALS: BP 172/77
[2020-08-14] MEDS: FUROSEMIDE 40MG/4ML VIAL (J1940) IV SCH ×5 (00:12→22:35)
[2020-08-14] MEDS: ACETAMINOPHEN TAB 650MG DOSE (2X325MG) PO PRN ×2 (01:19→17:26)
[2020-08-14 04:00] VITALS: BP 168/79
[2020-08-14] MEDS: LEVOTHYROXINE 75MCG TABLET (0.075MG) PO SCH (05:20)
[2020-08-14 05:54] LABS: BASO # 0.1 10^3/uL (0.0-0.2); EOS # 0.2 10^3/uL (0.0-0.5); EOS % 2.9 % (0.0-3.0); HEMATOCRIT 33.7 % (36.0-47.0); HEMOGLOBIN 10.7 g/dl (12.0-15.5); LYMPH % 15.3 % (24.0-44.0); MEAN CORPUSCULAR HEMOGLOBIN 28.5 pg (27.0-33.0); MEAN CORPUSCULAR HGB CONC 31.8 g/dl (32.0-36.5); MEAN CORPUSCULAR VOLUME 89.6 fl (80.0-96.0); MONO # 0.7 10^3/uL (0.0-0.8); MONO % 9.8 % (2.0-8.0); NEUTROPHILS # 4.8 10^3/uL (1.5-8.5); NEUTROPHILS % 70.4 % (36.0-66.0); PLATELET COUNT, AUTOMATED 330 10^3/uL (150-450); RED BLOOD COUNT 3.76 10^6/uL (4.00-5.40); WHITE BLOOD COUNT 6.8 10^3/uL (4.0-10.0)
[2020-08-14 06:08] LABS: INR 1.02; PROTHROMBIN TIME 13.6 SECONDS (12.5-14.3)
[2020-08-14 06:09] LABS: PARTIAL THROMBOPLASTIN TIME 28.6 SECONDS (24.2-38.5)
[2020-08-14 06:20] LABS: CALCIUM LEVEL 8.4 MG/DL (8.8-10.2); CREATININE FOR GFR 1.76 MG/DL (0.55-1.30); GLOMERULAR FILTRATION RATE 30.3 (>39); POTASSIUM SERUM 3.9 MEQ/L (3.5-5.1)
[2020-08-14 07:17] VITALS: BP 159/74
[2020-08-14] MEDS: HumaLOG INSULIN (NovoLOG) PER UNIT SC SCH ×4 (07:30→22:33)
--- NOTE | 2020-08-14 08:18 | REP ---
INDICATION: evaluate for pleural efussion. COMPARISON: Comparison chest x-ray August 13, 2020.. TECHNIQUE: Semi-erect AP portable chest x-ray. FINDINGS: There are bilateral pleural effusions again noted. No focal infiltrate is seen. There is evidence of a skeletal metastatic disease with an expansile lesion and pathologic fracture in 1 of the lower ribs on the right, radiolucency in the right clavicle, and radiolucent lesion suspected in the right glenoid. IMPRESSION: Bilateral pleural effusions. No new infiltrate seen. Metastatic skeletal disease. <Electronically signed by Donald Dunaway > 08/14/20 [id number]
[2020-08-14] MEDS ORDERED: LIDOCAINE 1% MDV 20ML VIAL As Ordered ONE (08:59)
[2020-08-14] MEDS ORDERED: SODIUM BICARBONATE 8.4% INJ 50MEQ 50 ML VIAL As Ordered ONE (08:59)
[2020-08-14 10:31] LABS: PH BODY FLUID 7.718 UNITS (NOT ESTABLISHED); SOURCE, BODY FLUID pH PLEURAL
[2020-08-14 10:34] LABS: APPEARANCE, BODY FLUID HAZY (CLEAR); PLEURAL FL COLOR YELLOW (COLORLESS); SOURCE, BODY FLUID PLEURAL
--- NOTE | 2020-08-14 10:50 | REP ---
INDICATION: POST LEFT THORA, 2 VIEW. COMPARISON: Rise comparison study 7:06 a.m. on 08/14/2020. Patient is status post left thoracentesis.. TECHNIQUE: Upright PA and lateral views of the chest are obtained. FINDINGS: The left pleural effusion is improved. There is no evidence of pneumothorax. There is a small to moderate right pleural effusion. Metastatic bone lesions are again seen. IMPRESSION: Improved left pleural effusion. Moderate right pleural effusion persists. <Electronically signed by Donald Dunaway > 08/14/20 1047
[2020-08-14] MEDS: DOCUSATE SODIUM 100MG CAPSULE PO SCH ×2 (10:58→22:32)
[2020-08-14] MEDS: ENOXAPARIN 40MG/0.4ML SYRINGE (J1650 PER 10MG) SC SCH (10:58)
[2020-08-14] MEDS: amLODIPine 5 MG TAB PO SCH ×2 (10:58→22:33)
[2020-08-14 11:07] LABS: AMYLASE, BODY FLUID 26 U/L (NOT ESTABLISHED); CHOLESTEROL, BODY FLUID 50 MG/DL (NOT ESTABLISHED); LDH, BODY FLUID 78 U/L (NOT ESTABLISHED); SOURCE, BODY FLUID AMYLASE PLEURAL; SOURCE, BODY FLUID CHOL PLEURAL; SOURCE, BODY FLUID GLUCOSE PLEURAL; SOURCE, BODY FLUID LDH PLEURAL; SOURCE, BODY FLUID TRIG PLEURAL; TRIGLYCERIDE, BODY FLUID 19 MG/DL (NOT ESTABLISHED)
[2020-08-14 11:15] LABS: SOURCE, BODY FLUID ALBUMIN PLEURAL; SOURCE, BODY FLUID TOT PROTEIN PLEURAL; TOTAL PROTEIN, BODY FLUID 2.2 G/DL (NOT ESTABLISHED)
[2020-08-14 12:00] VITALS: BP 180/80
--- NOTE | 2020-08-14 12:33 | IPNPDOC ---
Subjective Date Seen The patient was seen on 08/14/20. Subjective Chief Complaint/HPI On 2 liter nasal canula. going down for thoracocentesis today. Feels a little better. Very good urine output overnight. Objective Physical Examination General Exam: Positive: Alert, Cooperative, No Acute Distress Eye Exam: Positive: PERRLA, Conjunctiva & lids normal, EOMI; Negative: Sclera icteric ENT Exam: Positive: Atraumatic, Mucous membr. moist/pink, Pharynx Normal Neck Exam: Positive: Supple, JVD; Negative: thyromegaly Chest Exam: Positive: Diminished (at both the bases), Other (Bilateral basal cr ackles) Heart Exam: Positive: Rate Normal, Regular Rhythm, Normal S1, Normal S2; Negative: Murmurs, Rubs Abdomen Exam: Positive: Normal bowel sounds, Soft; Negative: Tenderness, Hepatospenomegaly Extremity Exam: Positive: Edema (extending to the knees and also inthe upper thighs , buttocks.); Negative: Clubbing, Cyanosis Assessment /Plan Assessment 70 year old female with multiple medical problems as below presented from [facility] for SOB for 3 days and new requirement of Oxygen. Patient had a prolonged hospital stay here from July 07 to August 01 for Acute diastolic CHF with bilateral pleural effusion requiring bilateral pleural pig tails with the right in for several days. Complicated by post pleural catheter reexpansion pulmonary edema on the right requiring vapotherm and prolong oxygen therapy. During that admission she was also found to have right breast cancer with bone mets. She was discharged to [facility] for rehab. She did not need any oxygen on discharge. She was not getting any diuretics at the [facility] for the first week. Patient started feeling SOB three days ago and started needing oxygen. At that point she was started on Torsemide 5 mg. However her SOB continued to worsen so was sent to the ED today. In the ED she was found to have bilateral pleural effusions again . She was admitted for CHF exacerbation. Diastolic CHF exacerbation IV lasix I/O, 2 gm sodium diet, fluid restriction 1.5 liters. Bilateral pleural effusion Pleural fluid study from the previous admission was negative for malignant cells This is due to CHF exacerbation She had lung reexpansion pulmonary edema after massive thoracocentesis was off 1.9 L of fluid removal during last admission from the right. Left thoracocentesis today with upto 1 l fluid removal only. Diabetes A1c in June 10.5 Levemir and lispro Fingersticks before meals and at bedtime ELVIA vs CKD stage 3 Creatinine 1.6. This is better than last discharge creatinine of 1.9 Last creatine in [facility] was normal in 2019. Will continue with Lasix Protein calorie malnutrition With bilateral temporal wasting and wasting of small muscles of the hand and leg Albumin 2.3 HTN Amlodipine and Lasix Hypothyroid Synthroid Depression Fluoxetine Anemia of chronic disease and also had an deficiency TSAT is low, ferritin of 100 will continue ferrous sulphate. Metastatic breast. Breast cancer , ER positive, [place] positive, HER negative Diagnosed in June metastases to bone Needs to follow up with oncologist in outpatient Plan/VTE VTE Prophylaxis Ordered?: Yes VS, I&O, 24H, Fishbone Vital Signs/I&O Vital Signs Date Time Temp Pulse Resp B/P (MAP) Pulse Ox O2 Delivery O2 Flow Rate FiO2 08/14/20 10:58 65 164/77 08/14/20 10:10 18 97 Nasal Cannula 2.0 08/14/20 09:10 98.5 I&O- Last 24 Hours up to 6 AM 08/14/20 06:00 Intake Total 900 ml Output Total 2750 ml Balance -1850 ml Laboratory Data 24H LABS Laboratory Tests 2 08/13/20 17:26: Bedside Glucose (Misc Panel) 244H 08/13/20 20:04: Bedside Glucose (Misc Panel) 221H 08/14/20 04:29: Bedside Glucose (Misc Panel) 68L 08/14/20 05:19: Bedside Glucose (Misc Panel) 121H 08/14/20 05:34: Immature Granulocyte % (Auto) 0.6, Neutrophils (%) (Auto) 70.4H, Lymphocytes (%) (Auto) 15.3L, Monocytes (%) (Auto) 9.8H, Eosinophils (%) (Auto) 2.9, Basophils (%) (Auto) 1.0, Neutrophils # (Auto) 4.8, Lymphocytes # (Auto) 1.0L, Monocytes # (Auto) 0.7, Eosinophils # (Auto) 0.2, Basophils # (Auto) 0.1, Nucleated Red Blood Cells % (auto) 0.0, Prothrombin Time 13.6, Prothromb Time International Ratio 1.02, Activated Partial Thromboplast Time 28.6, Anion Gap 6L, Glomerular Filtration Rate 30.3L, Calcium Level 8.4L 08/14/20 12:00: Bedside Glucose (Misc Panel) 132H CBC/BMP Laboratory Tests 08/14/20 05:34 Microbiology Microbiology 08/14/20 Gram Stain - Final, Resulted 08/14/20 Anaerobic Culture, Resulted Pending 08/14/20 Body Fluid Culture, Received Pending MARIELLA SANCHES MD Aug 14, 2020 12:33
--- NOTE | 2020-08-14 14:50 | REP ---
INDICATION: left , please remove up to 1 liter. diag study also The patient has a history of bilateral pleural effusions COMPARISON: None. TECHNIQUE: The procedure was performed by NITISH Hope, under the direct supervision of Dr. Dunaway The risks and benefits of the procedure were explained to the patient and an informed consent was obtained both verbally and written. Directly prior to the start of the procedure a formal time-out was completed in the procedure room. Pleural fluid in last lung zone was localized using ultrasound guidance. The skin was prepped and draped in a sterile fashion. Seven ML of buffered lidocaine was used as a local anesthetic. Using ultrasound guidance an 8-Amharic multi side-hole catheter was inserted using trocar technique. FINDINGS: One thousand mL of clear yellow colored fluid was withdrawn and sent to the laboratory for further analysis. The patient tolerated the procedure well and there were no immediate complications. After the appropriate amount of monitored convalescence, the patient was discharged from the department. IMPRESSION: Ultrasound-guided left thoracentesis with removal of 1000 mL of pleural fluid. <Electronically signed by Yee Barroso > 08/14/20 1437 <Electronically signed by Donald Dunaway > 08/14/20 144
[2020-08-14 16:00] VITALS: BP 162/70
[2020-08-14 20:00] VITALS: BP 162/76
[2020-08-14] MEDS ORDERED: LEVEMIR (INSULIN DETEMIR) 1 UNITS/0.01ML SC SCH (21:00)
[2020-08-14] MEDS: FLUoxetine 10 MG CAP PO SCH (22:32)
[2020-08-15] VITALS: BP 164/70
[2020-08-15 04:00] VITALS: BP 165/76
[2020-08-15] MEDS: LEVOTHYROXINE 75MCG TABLET (0.075MG) PO SCH (04:54)
[2020-08-15] MEDS: FUROSEMIDE 40MG/4ML VIAL (J1940) IV SCH (04:54)
[2020-08-15] MEDS: ACETAMINOPHEN TAB 650MG DOSE (2X325MG) PO PRN ×2 (04:54→21:51)
[2020-08-15 06:47] LABS: BASO # 0.1 10^3/uL (0.0-0.2); BASO % 0.7 % (0.0-1.0); EOS # 0.4 10^3/uL (0.0-0.5); EOS % 4.5 % (0.0-3.0); HEMATOCRIT 34.7 % (36.0-47.0); HEMOGLOBIN 11.3 g/dl (12.0-15.5); LYMPH # 2.3 10^3/uL (1.5-5.0); LYMPH % 26.6 % (24.0-44.0); MEAN CORPUSCULAR HGB CONC 32.6 g/dl (32.0-36.5); MONO # 0.9 10^3/uL (0.0-0.8); MONO % 10.7 % (2.0-8.0); PLATELET COUNT, AUTOMATED 376 10^3/uL (150-450); WHITE BLOOD COUNT 8.7 10^3/uL (4.0-10.0)
[2020-08-15 06:58] LABS: CALCIUM LEVEL 8.2 MG/DL (8.8-10.2); CREATININE FOR GFR 1.65 MG/DL (0.55-1.30); GLOMERULAR FILTRATION RATE 32.6 (>39); POTASSIUM SERUM 3.5 MEQ/L (3.5-5.1)
[2020-08-15] MEDS: HumaLOG INSULIN (NovoLOG) PER UNIT SC SCH ×4 (07:30→21:00)
[2020-08-15 07:45] VITALS: BP 170/79
[2020-08-15] MEDS: DOCUSATE SODIUM 100MG CAPSULE PO SCH ×2 (08:07→21:02)
[2020-08-15] MEDS: amLODIPine 5 MG TAB PO SCH ×2 (08:08→21:03)
[2020-08-15] MEDS: ENOXAPARIN 40MG/0.4ML SYRINGE (J1650 PER 10MG) SC SCH (08:08)
--- NOTE | 2020-08-15 10:47 | IPNPDOC ---
Subjective Date Seen The patient was seen on 08/15/20. Subjective Chief Complaint/HPI SOB is getting better. Not needing oxygen today. Could not get thoracocentesis today as she had already gotten lovenox this morning. Will try to arrange for oncologist appointment this afternoon if possible. Objective Physical Examination General Exam: Positive: Alert, Cooperative, No Acute Distress Eye Exam: Positive: PERRLA, Conjunctiva & lids normal, EOMI; Negative: Sclera icteric ENT Exam: Positive: Atraumatic, Mucous membr. moist/pink, Pharynx Normal Neck Exam: Positive: Supple, JVD; Negative: thyromegaly Chest Exam: Positive: Diminished (at both the bases), Other (Bilateral basal crackles) Heart Exam: Positive: Rate Normal, Regular Rhythm, Normal S1, Normal S2; Negative: Murmurs, Rubs Abdomen Exam: Positive: Normal bowel sounds, Soft; Negative: Tenderness, Hepatospenomegaly Extremity Exam: Positive: Edema (extending to the knees and also inthe upper thighs , buttocks.); Negative: Clubbing, Cyanosis Assessment /Plan Assessment 70 year old female with multiple medical problems as below presented from [facility] for SOB for 3 days and new requirement of Oxygen. Patient had a prolonged hospital stay here from July 07 to August 01 for Acute diastolic CHF with bilateral pleural effusion requiring bilateral pleural pig tails with the right in for several days. Complicated by post pleural catheter reexpansion pulmonary edema on the right requiring vapotherm and prolong oxygen therapy. During that admission she was also found to have right breast cancer with bone mets. She was discharged to [facility] for rehab. She did not need any oxygen on discharge. She was not getting any diuretics at the [facility] for the first week. Patient started feeling SOB three days ago and started needing oxygen. At that point she was started on Torsemide 5 mg. However her SOB continued to worsen so was sent to the ED today. In the ED she was found to have bilateral pleural effusions again . She was admitted for CHF exacerbation. Diastolic CHF exacerbation IV lasix I/O, 2 gm sodium diet, fluid restriction 1.5 liters. Bilateral pleural effusion Pleural fluid study from the previous admission was negative for malignant cells This is due to CHF exacerbation She had lung reexpansion pulmonary edema after massive thoracocentesis was off 1.9 L of fluid removal during last admission from the right. Left thoracocentesis done with 1 l fluid removal . No issues of pulmonary edema. will plan for right paracentesis with upto 1 liter fluid removal. Diabetes A1c in June 10.5 Levemir and lispro Fingersticks before meals and at bedtime ELVIA vs CKD stage 3 Creatinine 1.6. This is better than last discharge creatinine of 1.9 Last creatine in [facility] was normal in 2019. Will continue with Lasix Protein calorie malnutrition With bilateral temporal wasting and wasting of small muscles of the hand and leg Albumin 2.3 HTN Amlodipine and Lasix Hypothyroid Synthroid Depression Fluoxetine Anemia of chronic disease and also had an deficiency TSAT is low, ferritin of 100 will continue ferrous sulphate. Metastatic right Breast cancer , ER positive, [place] positive, HER negative Diagnosed in June metastases to bone Needs to follow up with oncologist Plan/VTE VTE Prophylaxis Ordered?: Yes VS, I&O, 24H, Fishbone Vital Signs/I&O Vital Signs Date Time Temp Pulse Resp B/P (MAP) Pulse Ox O2 Delivery O2 Flow Rate FiO2 08/15/20 08:08 73 170/79 08/15/20 07:45 97.4 18 94 Room Air 08/14/20 20:00 2.0 I&O- Last 24 Hours up to 6 AM 08/15/20 06:00 Intake Total 1210 ml Output Total 1850 ml Balance -640 ml Laboratory Data 24H LABS Laboratory Tests 2 08/14/20 12:00: Bedside Glucose (Misc Panel) 132H 08/14/20 16:54: Bedside Glucose (Misc Panel) 220H 08/14/20 22:15: Bedside Glucose (Misc Panel) 253H 08/15/20 05:39: Bedside Glucose (Misc Panel) 70L 08/15/20 06:10: Immature Granulocyte % (Auto) 0.5, Neutrophils (%) (Auto) 57.0, Lymphocytes (%) (Auto) 26.6, Monocytes (%) (Auto) 10.7H, Eosinophils (%) (Auto) 4.5H, Basophils (%) (Auto) 0.7, Neutrophils # (Auto) 5.0, Lymphocytes # (Auto) 2.3, Monocytes # (Auto) 0.9H, Eosinophils # (Auto) 0.4, Basophils # (Auto) 0.1, Nucleated Red Blood Cells % (auto) 0.0, Anion Gap 7L, Glomerular Filtration Rate 32.6L, Calcium Level 8.2L CBC/BMP Laboratory Tests 08/15/20 06:10 Microbiology Microbiology 08/14/20 Gram Stain - Final, Resulted 08/14/20 Anaerobic Culture, Resulted Pending 08/14/20 Body Fluid Culture, Received Pending MARIELLA SANCEHS MD Aug 15, 2020 10:46
[2020-08-15 12:06] VITALS: BP 179/84
--- NOTE | 2020-08-15 13:49 | CR.PDOC ---
General Date of Consultation: Aug 15, 2020 Referring Provider: MARYELLEN TRACY MD Consultation REASON FOR CONSULTATION/CHIEF COMPLAINT: This 70-year-old woman is well-known to me and was seen during her last confinement at the [facility] patient was found to have disseminated breast cancer which was ER/MD positive HER-2 negative. She also had pleural effusions that were treated by the placement off chest tubes until she was discharged. She has been readmitted to the hospital today with large pleural effusions which are felt to be essentially cardiovascular in nature is extremely elevated BNP is more than 18,000 and I have been asked to see her. We have not seen the patient in the cancer center clinic since a prior discharge. She was due to be seen today but as is seen she is an inpatient at the moment. In my discussions with her hospitalist Dr. Maryellen Tracy therapies are being directed towards her clinical improvement so that she is dischargeable to the outpatient's. From the medical oncologic point of view the patient has in the past in the company of her son rejected any chemotherapy at this time. 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 The ER/MD positivity gives options of hormonal manipulation which in this case might be best served with an injection of fulvestrant along with a CDK 4-6 inhibitor such as IBRANCE. Under normal ambulant circumstances an aromatase inhibitor might have suffice however in heart failure the gut is edematous and likely the absorption of this medicine like many others orally would not be optimal. At the time of my examining the patient a son who normally was present was not so because it was beyond visiting hours and on my last visit when she was in the hospital during the last confinement her son was an integral part of her decision making. ALLERGIES: Please see below. HOME MEDICATIONS: Please see below. PAST MEDICAL HISTORY: Please see the multiple previous notes 1. . 2. . PAST SURGICAL HISTORY: Please see the multiple previous notes 1. 2. 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 Did not complain of any HEENT any headaches visual complaints no cough is obviously some shortness of breath no nausea vomiting diarrhea and loose bowel movements the right chest shows the old evidence of the breast tumor PHYSICAL EXAMINATION: VITAL SIGNS: Please see below. 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 ASSESSMENT/PLAN: * I discussed the patient's problems with the attending Dr. Quintana who has informed me that the current state of affairs with large amounts of effusions are felt to be due to congestive heart failure and not the malignancy as such * The patient needs to be treated with anti-hormonal therapy which in this case would be best in the beginning with Faslodex or fulvestrant as absorption of an aromatase inhibitor would be poor given the edema of the contact that bec ause the above-mentioned state * However the patient and his son need to make this decision because in the past she has rejected the use of systemic therapies and I feel that she has made certain decisions so that she should not be treated because one view of the other hormonal manipulation in breast cancer is a slow process and unfortunately she is unfit to receive cytotoxic chemotherapy and in addition she has refused it * Overall her prognosis remains very poor from the oncologic point of view * She should be seen in the outpatient's upon discharge so that the therapeutic choices therefore can be made by her * I asked the attending that upon discharge this be done as early as feasible Vital Signs/I&O Vital Signs Date Time Temp Pulse Resp B/P (MAP) Pulse Ox O2 Delivery O2 Flow Rate FiO2 08/15/20 12:06 98.0 74 18 179/84 (115) 95 Room Air 08/14/20 20:00 2.0 I&O- Last 24 Hours up to 6 AM 08/15/20 06:00 Intake Total 1210 ml Output Total 1850 ml Balance -640 ml Laboratory Data Labs 24H Laboratory Tests 2 08/14/20 16:54: Bedside Glucose (Misc Panel) 220H 08/14/20 22:15: Bedside Glucose (Misc Panel) 253H 08/15/20 05:39: Bedside Glucose (Misc Panel) 70L 08/15/20 06:10: Immature Granulocyte % (Auto) 0.5, Neutrophils (%) (Auto) 57.0, Lymphocytes (%) (Auto) 26.6, Monocytes (%) (Auto) 10.7H, Eosinophils (%) (Auto) 4.5H, Basophils (%) (Auto) 0.7, Neutrophils # (Auto) 5.0, Lymphocytes # (Auto) 2.3, Monocytes # (Auto) 0.9H, Eosinophils # (Auto) 0.4, Basophils # (Auto) 0.1, Nucleated Red Blood Cells % (auto) 0.0, Anion Gap 7L, Glomerular Filtration Rate 32.6L, Calcium Level 8.2L CBC/BMP Laboratory Tests 08/15/20 06:10 Microbiology Microbiology 08/14/20 Gram Stain - Final, Resulted 08/14/20 Anaerobic Culture, Resulted Pending 08/14/20 Body Fluid Culture, Received Pending Allergies Coded Allergies: Penicillins (Verified Allergy, Mild, rash, 07/07/20) Home Medications Scheduled Amlodipine Besylate (Amlodipine Besylate) 10 Mg Tablet, 10 MG PO DAILY, (Reported) Ascorbic Acid (Vitamin C) 500 Mg Tablet, 500 MG PO DAILY, (Reported) Calcium Carbonate/Vitamin D3 (Calcium 600-Vit D3 400 Tablet) 1 Each Tablet, 1 TAB PO DAILY, (Reported) Cyanocobalamin (Vitamin B-12) (Vitamin B-12) 500 Mcg Tablet, 500 MCG PO DAILY, (Reported) Ferrous Sulfate (Ferrous Sulfate) 325 Mg Tablet, 325 MG PO DAILY, (Reported) Fluoxetine HCl (Fluoxetine HCl) 10 Mg Tablet, 10 MG PO QHS, (Reported) Grape Seed Extract (Grape Seed Extract) 50 Mg Capsule, 50 MG PO DAILY, (Reported) Levothyroxine Sodium (Levothyroxine Sodium) 75 Mcg Tablet, 75 MCG PO QAM, (Reported) Magnesium (Magnesium) 250 Mg Tablet, 250 MG PO QHS, (Reported) Metformin HCl (Metformin HCl ER) 500 Mg Tab.er.24h, 1,000 MG PO DAILY, (Reported) Methylsulfonylmethane (Msm) 500 Mg Capsule, 500 MG PO QHS, (Reported) Potassium Gluconate (Potassium) 99 Mg Tablet, 595 MG PO QHS, (Reported) Thiamine HCl (Thiamine HCl) 100 Mg Tablet, 100 MG PO DAILY, (Reported) Torsemide (Torsemide) 5 Mg Tablet, 5 MG PO DAILY, (Reported) Scheduled PRN Acetaminophen (Acetaminophen) 325 Mg Tablet, 650 MG PO Q6H PRN for PAIN / FEVER, (Reported) Docusate Sodium (Stool Softener) 100 Mg Capsule, 100 MG PO DAILY PRN for CONSTIPATION, (Reported) Ondansetron HCl (Ondansetron HCl) 4 Mg Tablet, 4 MG PO AC PRN for NAUSEA OR VOMITING, (Reported) Polyethylene Glycol 3350 (Miralax) 119 Gm Powder, 17 GM PO DAILY PRN for CONSTIPATION, (Reported) dilute in 8 ounces of water or juice Prochlorperazine (Prochlorperazine Maleate) 5 Mg Tablet, 10 MG PO Q8H PRN for NAUSEA OR VOMITING, (Reported) Sennosides (Senna Lax) 8.6 Mg Tablet, 2 TAB PO DAILY PRN for CONSTIPATION, (Reported) Simethicone (Gas-X) 125 Mg Capsule, 125 MG PO Q6H PRN for GAS PAIN, (Reported) BETINA OSMANCP Aug 15, 2020 13:49
[2020-08-15 16:28] VITALS: BP 178/81
[2020-08-15] MEDS ORDERED: TORSEMIDE 20 MG TAB PO SCH (17:00)
[2020-08-15] MEDS: FUROSEMIDE 100MG/10ML VIAL (J1940) IV SCH (17:35)
[2020-08-15 20:00] VITALS: BP 178/76
[2020-08-15] MEDS: LEVEMIR (INSULIN DETEMIR) 1 UNITS/0.01ML SC SCH (21:00)
[2020-08-15] MEDS: FLUoxetine 10 MG CAP PO SCH (21:02)
[2020-08-15] MEDS: CARVedilol 3.125 MG TAB PO SCH (21:03)
[2020-08-16] VITALS (7 sets, daily range): BP systolic 119–166; BP diastolic 58–73
[2020-08-16 06:09] LABS: BASO # 0.1 10^3/uL (0.0-0.2); BASO % 0.8 % (0.0-1.0); EOS # 0.3 10^3/uL (0.0-0.5); EOS % 3.7 % (0.0-3.0); HEMOGLOBIN 9.7 g/dl (12.0-15.5); LYMPH # 1.7 10^3/uL (1.5-5.0); LYMPH % 23.7 % (24.0-44.0); MEAN CORPUSCULAR HEMOGLOBIN 28.9 pg (27.0-33.0); MEAN CORPUSCULAR HGB CONC 32.3 g/dl (32.0-36.5); MEAN CORPUSCULAR VOLUME 89.3 fl (80.0-96.0); MONO # 0.7 10^3/uL (0.0-0.8); MONO % 9.9 % (2.0-8.0); NEUTROPHILS # 4.4 10^3/uL (1.5-8.5); NEUTROPHILS % 61.5 % (36.0-66.0); PLATELET COUNT, AUTOMATED 310 10^3/uL (150-450); RED BLOOD COUNT 3.36 10^6/uL (4.00-5.40); WHITE BLOOD COUNT 7.1 10^3/uL (4.0-10.0)
[2020-08-16 06:27] LABS: CALCIUM LEVEL 7.9 MG/DL (8.8-10.2); CREATININE FOR GFR 1.53 MG/DL (0.55-1.30); GLOMERULAR FILTRATION RATE 35.6 (>39); POTASSIUM SERUM 3.8 MEQ/L (3.5-5.1)
[2020-08-16] MEDS: LEVOTHYROXINE 75MCG TABLET (0.075MG) PO SCH (06:46)
[2020-08-16] MEDS: HumaLOG INSULIN (NovoLOG) PER UNIT SC SCH ×4 (09:50→20:44)
[2020-08-16] MEDS: FUROSEMIDE 100MG/10ML VIAL (J1940) IV SCH ×2 (09:58→17:30)
[2020-08-16] MEDS: amLODIPine 5 MG TAB PO SCH ×2 (09:59→20:44)
[2020-08-16] MEDS: DOCUSATE SODIUM 100MG CAPSULE PO SCH ×2 (09:59→20:44)
[2020-08-16] MEDS: CARVedilol 3.125 MG TAB PO SCH ×2 (09:59→20:43)
[2020-08-16] MEDS: ENOXAPARIN 40MG/0.4ML SYRINGE (J1650 PER 10MG) SC SCH (09:59)
[2020-08-16] MEDS: ACETAMINOPHEN TAB 650MG DOSE (2X325MG) PO PRN ×2 (13:36→22:15)
--- NOTE | 2020-08-16 14:45 | IPNPDOC ---
Text Note Date of Service The patient was seen on 08/16/20. NOTE Subjective Chief Complaint/HPI She is sitting upright in the chair eating breakfast when I entered the room. She reports that she is feeling much better today than she had been previously. She still does not require oxygen. Apparently the right-sided thoracentesis co uld not be performed because she had had her Lovenox shot on that day, and this will not be reattempted until Tuesday. She will need very close outpatient follow-up with oncology upon discharge, perhaps within 1-2 days of her discharge. Otherwise, the remainder of her review of systems today was negative. Objective Objective Physical Examination General Exam: Positive: Alert, Cooperative, No Acute Distress Eye Exam: Positive: PERRLA, Conjunctiva & lids normal, EOMI; Negative: Sclera icteric ENT Exam: Positive: Atraumatic, Mucous membr. moist/pink, Pharynx Normal Neck Exam: Positive: Supple, JVD; Negative: thyromegaly Chest Exam: Positive: Diminished (at both the bases, right worse than left), faint crackles heard at the bases bilaterally Heart Exam: Positive: Rate Normal, Regular Rhythm, Normal S1, Normal S2; Negative: Murmurs, Rubs Abdomen Exam: Positive: Normal bowel sounds, Soft; Negative: Tenderness, Hepatospenomegaly Extremity Exam: Positive: Edema (extending to the knees and also inthe upper thighs , buttocks.); Negative: Clubbing, Cyanosis Assessment/Plan Assessment /Plan Assessment 70 year old female with multiple medical problems as below presented from [facility] for SOB for 3 days and new requirement of Oxygen. Patient had a prolonged hospital stay here from July 07 to August 01 for Acute diastolic CHF with bilateral pleural effusion requiring bilateral pleural pig tails with the right in for several days. Complicated by post pleural catheter reexpansion pulmonary edema on the right requiring vapotherm and prolong oxygen therapy. During that admission she was also found to have right breast cancer with bone mets. She was discharged to [facility] for rehab. She did not need any oxygen on discharge. She was not getting any diuretics at the [facility] for the first week. Patient started feeling SOB three days ago and started needing oxygen. At that point she was started on Torsemide 5 mg. However her SOB continued to worsen so was sent to the ED today. In the ED she was found to have bilateral pleural effusions again . She was admitted for CHF exacerbation. Diastolic CHF exacerbation IV lasix I/O, 2 gm sodium diet, fluid restriction 1.5 liters. Bilateral pleural effusion Pleural fluid study from the previous admission was negative for malignant cells This is due to CHF exacerbation She had lung reexpansion pulmonary edema after massive thoracocentesis was off 1.9 L of fluid removal during last admission from the right. Left thoracocentesis done with 1 l fluid removal . No issues of pulmonary edema. will plan for right paracentesis with up to 1 liter fluid removal on Tuesday. Diabetes A1c in June 10.5 Levemir and lispro Fingersticks before meals and at bedtime ELVIA vs CKD stage 3 Creatinine continues to remain around 1.6. This is better than last discharge creatinine of 1.9 Last creatine in the system was normal in 2018. Will continue with Lasix Protein calorie malnutrition With bilateral temporal wasting and wasting of small muscles of the hand and leg Albumin 2.3 HTN Amlodipine and Lasix Hypothyroid Synthroid Depression Fluoxetine Anemia of chronic disease and also had iron deficiency TSAT is low, ferritin of 100 will continue ferrous sulphate. Metastatic right Breast cancer , ER positive, [place] positive, HER negative Diagnosed in June metastases to bone Needs to follow up with oncologist Plan/VTE VTE Prophylaxis Ordered?: Yes VS,Fermine, I+O VS, Fishbone, I+O Laboratory Tests 08/16/20 05:33 Vital Signs Date Time Temp Pulse Resp B/P (MAP) Pulse Ox O2 Delivery O2 Flow Rate FiO2 08/16/20 11:24 98.2 71 18 136/65 (88) 92 Room Air 08/14/20 20:00 2.0 I&O- Last 24 Hours up to 6 AM 08/16/20 06:00 Intake Total 1020 ml Output Total 2075 ml Balance -1055 ml JESSIE SALDANA DO August 16, 2020 14:45
[2020-08-16] MEDS: FLUoxetine 10 MG CAP PO SCH (20:43)
[2020-08-16] MEDS: LEVEMIR (INSULIN DETEMIR) 1 UNITS/0.01ML SC SCH (20:44)
[2020-08-17 03:28] VITALS: BP 174/77
[2020-08-17] MEDS: LEVOTHYROXINE 75MCG TABLET (0.075MG) PO SCH (04:51)
[2020-08-17] MEDS: ACETAMINOPHEN TAB 650MG DOSE (2X325MG) PO PRN ×2 (04:51→14:15)
[2020-08-17 06:52] LABS: BASO # 0.1 10^3/uL (0.0-0.2); BASO % 1.1 % (0.0-1.0); EOS # 0.3 10^3/uL (0.0-0.5); EOS % 3.8 % (0.0-3.0); HEMATOCRIT 28.6 % (36.0-47.0); HEMOGLOBIN 9.2 g/dl (12.0-15.5); LYMPH # 1.5 10^3/uL (1.5-5.0); LYMPH % 20.9 % (24.0-44.0); MEAN CORPUSCULAR HGB CONC 32.2 g/dl (32.0-36.5); MEAN CORPUSCULAR VOLUME 90.2 fl (80.0-96.0); MONO # 0.8 10^3/uL (0.0-0.8); MONO % 10.8 % (2.0-8.0); NEUTROPHILS # 4.6 10^3/uL (1.5-8.5); NEUTROPHILS % 62.9 % (36.0-66.0); PLATELET COUNT, AUTOMATED 295 10^3/uL (150-450); RED BLOOD COUNT 3.17 10^6/uL (4.00-5.40); WHITE BLOOD COUNT 7.3 10^3/uL (4.0-10.0)
[2020-08-17 07:03] LABS: CALCIUM LEVEL 7.9 MG/DL (8.8-10.2); CREATININE FOR GFR 1.65 MG/DL (0.55-1.30); GLOMERULAR FILTRATION RATE 32.6 (>39); POTASSIUM SERUM 4.1 MEQ/L (3.5-5.1)
[2020-08-17 07:29] VITALS: BP 164/77
[2020-08-17] MEDS: HumaLOG INSULIN (NovoLOG) PER UNIT SC SCH ×4 (07:30→21:02)
[2020-08-17] MEDS: amLODIPine 5 MG TAB PO SCH ×2 (08:21→21:01)
[2020-08-17] MEDS: DOCUSATE SODIUM 100MG CAPSULE PO SCH ×2 (08:21→21:01)
[2020-08-17] MEDS: FUROSEMIDE 100MG/10ML VIAL (J1940) IV SCH ×2 (08:21→18:01)
[2020-08-17] MEDS: MULTIVITAMINS/MINERALS THERAP 1 TAB PO SCH (08:21)
[2020-08-17] MEDS: ENOXAPARIN 40MG/0.4ML SYRINGE (J1650 PER 10MG) SC SCH (08:22)
[2020-08-17] MEDS: CARVedilol 3.125 MG TAB PO SCH ×2 (08:22→21:01)
[2020-08-17] MEDS: guaiFENesin ER 600 MG TAB PO SCH ×2 (08:22→21:01)
--- NOTE | 2020-08-17 09:24 | IPNPDOC ---
Text Note Date of Service The patient was seen on 08/17/20. NOTE Subjective: Patient is a 70-year-old female with multiple medical problems who presented from [facility] for shortness of breath for 3 days. Patient has had a recent hospitalization from 07/07-08/01 for acute diastolic CHF with bilateral pleural effusions requiring bilateral pleural pigtail catheters for several days; this was completed by pulmonary edema from reexpansion. At [facility]. Patient did not receive any diuretics and began to experience worsening shortness of breath and was sent to the emergency room for further evaluation. Patient was admitted to the hospital service for further evaluation and treatment Patient has received a left sided thoracentesis with 1000 mL of fluid removal on 08/15. Patient was seen and examined at the bedside. Patient reports that she still experiencing some shortness of breath. She denies any significant cough. No nausea, vomiting, abdominal pain or diarrhea. Denies any urinary discomfort. Objective: Vitals (See below) General: Sitting up in chair and appears to be comfortable, AAOx3 HEENT: NC, AT CVS: +S1S2 Lungs: There are diminished lung sounds at the right lung base. Left lung field with crackles, no evidence of wheezing or rhonchi Abdomen: Soft, ND, NT Extremities: Trace lower extremity edema bilaterally, - Calf tenderness Imaging: CXR 08/13: Moderate to large bilateral pleural effusions which have increased since the prior study. There is adjacent bilateral increased atelectasis/infiltrate as well as vascular congestion. Chest CT 08/13: No significant change from 07/18/2020 with findings as described above. CXR 08/14: Bilateral pleural effusions. No new infiltrate seen. Metastatic skeletal disease. Thoracentesis 08/14: Ultrasound-guided left thoracentesis with removal of 1000 mL of pleural fluid. Chest biopsy 08/14: Improved left pleural effusion. Moderate right pleural effusion persists. Assessment and plan: Acute decompensated diastolic CHF exacerbation with bilateral pleural effusions - Clinically patient has reported improvement of her breathing - Still requires supplemental oxygen via nasal cannula - Has remained negative fluid balance - Status post thoracentesis of the left; 1000 mL fluid removal - Continue with furosemide IV - Patient is scheduled for a thoracentesis of her right side on Tuesday IDDM2 - A1c in June 25.5 - c/w Levemir and ISS CKD3 - Creatinine base of the proximal 1.6 - Continue with diuresis Protein calorie malnutrition - Bilateral temporal wasting and wasting of small muscles of the hand and leg - Albumin 2.3 HTN - BP well controlled - c/w Amlodipine / Furosemide Hypothyroid - c/w levothyroxine Depression - c/w Fluoxetine Anemia of chronic disease and also had iron deficiency - c/w Iron supplementation Metastatic right Breast cancer - ER positive, [place] positive, HER negative - Diagnosed in June metastases to bone - Dr. Araiza on consultation - Will have outpatient follow-up with oncology DVT prophylaxis - c/w Lovenox Disposition: - Awaiting clinical improvement VS,Fermine, I+O VS, Shamarbone, I+O Laboratory Tests 08/17/20 05:32 Vital Signs Date Time Temp Pulse Resp B/P (MAP) Pulse Ox O2 Delivery O2 Flow Rate FiO2 08/17/20 08:21 76 164/77 08/17/20 07:29 98.2 18 92 Nasal Cannula 2.0 I&O- Last 24 Hours up to 6 AM 08/17/20 06:00 Intake Total 1760 ml Output Total 1625 ml Balance 135 ml GARRY FARR MD August 17, 2020 09:24
[2020-08-17 11:43] VITALS: BP 143/60
[2020-08-17 15:41] VITALS: BP 143/64
[2020-08-17 20:59] VITALS: BP 154/70
[2020-08-17] MEDS: LEVEMIR (INSULIN DETEMIR) 1 UNITS/0.01ML SC SCH (21:01)
[2020-08-17] MEDS: FLUoxetine 10 MG CAP PO SCH (21:01)
[2020-08-18] VITALS (13 sets, daily range): BP systolic 132–195; BP diastolic 63–77; O2SAT 95–96
[2020-08-18] MEDS: DEXTROSE 50% 50 ML SYRINGE IV PRN ×2 (03:00→03:15)
[2020-08-18] MEDS: LEVOTHYROXINE 75MCG TABLET (0.075MG) PO SCH (05:29)
[2020-08-18 06:16] LABS: BASO # 0.1 10^3/uL (0.0-0.2); BASO % 0.7 % (0.0-1.0); EOS # 0.3 10^3/uL (0.0-0.5); EOS % 3.7 % (0.0-3.0); HEMATOCRIT 28.5 % (36.0-47.0); HEMOGLOBIN 9.2 g/dl (12.0-15.5); LYMPH # 1.1 10^3/uL (1.5-5.0); LYMPH % 15.1 % (24.0-44.0); MEAN CORPUSCULAR HGB CONC 32.3 g/dl (32.0-36.5); MEAN CORPUSCULAR VOLUME 89.9 fl (80.0-96.0); MONO # 0.8 10^3/uL (0.0-0.8); MONO % 10.2 % (2.0-8.0); NEUTROPHILS # 5.3 10^3/uL (1.5-8.5); NEUTROPHILS % 69.9 % (36.0-66.0); PLATELET COUNT, AUTOMATED 288 10^3/uL (150-450); RED BLOOD COUNT 3.17 10^6/uL (4.00-5.40); WHITE BLOOD COUNT 7.5 10^3/uL (4.0-10.0)
[2020-08-18 06:44] LABS: CALCIUM LEVEL 8.7 MG/DL (8.8-10.2); CREATININE FOR GFR 1.61 MG/DL (0.55-1.30); GLOMERULAR FILTRATION RATE 33.6 (>39); POTASSIUM SERUM 4.2 MEQ/L (3.5-5.1)
[2020-08-18] MEDS: HumaLOG INSULIN (NovoLOG) PER UNIT SC SCH ×4 (07:18→20:35)
[2020-08-18] MEDS: amLODIPine 5 MG TAB PO SCH ×2 (08:32→20:34)
[2020-08-18] MEDS: FUROSEMIDE 100MG/10ML VIAL (J1940) IV SCH ×2 (08:32→16:51)
[2020-08-18] MEDS: CARVedilol 3.125 MG TAB PO SCH ×2 (08:32→20:35)
[2020-08-18] MEDS: guaiFENesin ER 600 MG TAB PO SCH ×2 (08:32→20:35)
[2020-08-18] MEDS: MULTIVITAMINS/MINERALS THERAP 1 TAB PO SCH (08:33)
[2020-08-18] MEDS: DOCUSATE SODIUM 100MG CAPSULE PO SCH ×2 (08:33→20:34)
[2020-08-18] MEDS ORDERED: LIDOCAINE 1% MDV 20ML VIAL As Ordered ONE (09:23)
--- NOTE | 2020-08-18 09:24 | IPNPDOC ---
Text Note Date of Service The patient was seen on 08/18/20. NOTE Subjective: Patient is a 70-year-old female with multiple medical problems who presented from [facility] for shortness of breath for 3 days. Patient has had a recent hospitalization from 07/07-08/01 for acute diastolic CHF with bilateral pleural effusions requiring bilateral pleural pigtail catheters for several days; this was completed by pulmonary edema from reexpansion. At [facility]. Patient did not receive any diuretics and began to experience worsening shortness of breath and was sent to the emergency room for further evaluation. Patient was admitted to the hospital service for further evaluation and treatment Patient has received a left sided thoracentesis with 1000 mL of fluid removal on 08/15. Patient was seen and examined at the bedside. Patient was seen sitting up in chair, appears to be comfortable, not in any acute distress. Patient has nasal cannula in place. Reports that she did experience an episode at this morning. Denies any cough. Denies any nausea, vomiting, abdominal pain or diarrhea. Objective: Vitals (See below) General: Patient sitting up in chair, visual control is oriented to person, place and time HEENT: NC, AT CVS: +S1S2 Lungs: Again, her right lower lung field has diminished lung sounds left lower lung field has mild crackles, no wheezing or rhonchi Abdomen: Soft, nondistended, nontender Extremities: Lower extremities revealed trace to 1+ pitting edema bilaterally, - Calf tenderness Imaging: CXR 08/13: Moderate to large bilateral pleural effusions which have increased since the prior study. There is adjacent bilateral increased atelectasis/infiltrate as well as vascular congestion. Chest CT 08/13: No significant change from 07/18/2020 with findings as described above. CXR 08/14: Bilateral pleural effusions. No new infiltrate seen. Metastatic skeletal disease. Thoracentesis 08/14: Ultrasound-guided left thoracentesis with removal of 1000 mL of pleural fluid. Chest biopsy 08/14: Improved left pleural effusion. Moderate right pleural effusion persists. Assessment and plan: Acute decompensated diastolic CHF exacerbation with bilateral pleural effusions - Patient has had an improvement of her breathing since arrival, however, still reports some mild short of breath - Still requires supplemental oxygen via nasal cannula - Has remained negative fluid balance - s/p thoracentesis of the left; 1000 mL fluid removal - And he was strict ins and outs, daily weights, fluid restrictions - c/w furosemide IV - Patient is scheduled for a thoracentesis (right side) today IDDM2 - A1c in June 10.5 - c/w Levemir and ISS CKD3 - Creatinine base of the proximal 1.6 - c/w diuresis Protein calorie malnutrition - Bilateral temporal wasting and wasting of small muscles of the hand and leg - Albumin 2.3 HTN - BP well controlled - c/w Amlodipine / Furosemide Hypothyroid - c/w levothyroxine Depression - c/w Fluoxetine Anemia of chronic disease and also had iron deficiency - c/w Iron supplementation Metastatic right Breast cancer - ER positive, [place] positive, HER negative - Diagnosed in June metastases to bone - Dr. Araiza on consultation - Will have outpatient follow-up with oncology DVT prophylaxis - c/w Lovenox Disposition: - Awaiting clinical improvement - Anticipate discharge within 24 hours VS,Fishbone, I+O VS, Fishbone, I+O Laboratory Tests 08/18/20 05:48 Vital Signs Date Time Temp Pulse Resp B/P (MAP) Pulse Ox O2 Delivery O2 Flow Rate FiO2 08/18/20 08:32 67 165/74 08/18/20 05:30 97.9 14 91 Nasal Cannula 1.0 I&O- Last 24 Hours up to 6 AM 08/18/20 06:00 Intake Total 1720 ml Output Total 2000 ml Balance -280 ml GARRY FARR MD August 18, 2020 09:24
--- NOTE | 2020-08-18 10:10 | REP ---
INDICATION: POST RIGHT THORA, 2 VIEW. COMPARISON: 08/14/2020. TECHNIQUE: Two views of the chest are performed. FINDINGS: There is decreased amount of right pleural fluid. Small residual pleural fluid effusions are noted bilaterally, with adjacent bibasilar parenchymal opacity. The heart is not significantly enlarged. The mediastinal silhouette is unchanged. There are mild degenerative changes of the spine. There is no pneumothorax status post right thoracentesis. IMPRESSION: No pneumothorax status post right thoracentesis. Decreased amount of right pleural fluid. Mild residual bilateral pleural effusions and bibasilar parenchymal opacities. <Electronically signed by Stephane Vargas > 08/18/20 1001
--- NOTE | 2020-08-18 16:36 | REP ---
INDICATION: right therapeutic and cytology. Remove up to 1 L. COMPARISON: None. TECHNIQUE: The procedure was performed under the direct supervision of Dr. Vargas. The risks and benefits of the procedure were explained the patient and informed consent was obtained. The right pleural effusion was localized using ultrasound guidance. The skin was prepped and draped in a sterile fashion. 1% lidocaine was used as a local anesthetic. An 8 Tristanian multi side hole catheter was inserted using trocar technique. 1000 cc of yellow fluid was withdrawn with a sample sent to the lab for analysis. The patient tolerated the procedure well and there were no immediate complications. After the appropriate amount to monitor convalescence the patient was discharged from the department. FINDINGS: None IMPRESSION: Ultrasound-guided right thoracentesis yielding 1000 cc of yellow fluid. <Electronically signed by Eulogio Alonzo > 08/18/20 1136 <Electronically signed by Stephane Vargas > 08/18/20 [id number]
[2020-08-18] MEDS: FLUoxetine 10 MG CAP PO SCH (20:34)
[2020-08-18] MEDS: LEVEMIR (INSULIN DETEMIR) 1 UNITS/0.01ML SC SCH (20:36)
[2020-08-19] VITALS (9 sets, daily range): BP systolic 162–182; BP diastolic 67–78; O2SAT 92–97
[2020-08-19] MEDS: ACETAMINOPHEN TAB 650MG DOSE (2X325MG) PO PRN ×3 (04:15→13:59)
[2020-08-19 05:45] LABS: BASO # 0.1 10^3/uL (0.0-0.2); BASO % 0.8 % (0.0-1.0); EOS # 0.3 10^3/uL (0.0-0.5); EOS % 3.5 % (0.0-3.0); HEMATOCRIT 28.6 % (36.0-47.0); HEMOGLOBIN 9.3 g/dl (12.0-15.5); LYMPH # 1.3 10^3/uL (1.5-5.0); LYMPH % 17.9 % (24.0-44.0); MEAN CORPUSCULAR HEMOGLOBIN 29.6 pg (27.0-33.0); MEAN CORPUSCULAR HGB CONC 32.5 g/dl (32.0-36.5); MEAN CORPUSCULAR VOLUME 91.1 fl (80.0-96.0); MONO # 0.7 10^3/uL (0.0-0.8); MONO % 9.9 % (2.0-8.0); NEUTROPHILS # 4.8 10^3/uL (1.5-8.5); NEUTROPHILS % 67.5 % (36.0-66.0); PLATELET COUNT, AUTOMATED 295 10^3/uL (150-450); RED BLOOD COUNT 3.14 10^6/uL (4.00-5.40); WHITE BLOOD COUNT 7.1 10^3/uL (4.0-10.0)
[2020-08-19 05:59] LABS: CALCIUM LEVEL 7.9 MG/DL (8.8-10.2); CREATININE FOR GFR 1.53 MG/DL (0.55-1.30); GLOMERULAR FILTRATION RATE 35.6 (>39); POTASSIUM SERUM 4.7 MEQ/L (3.5-5.1)
[2020-08-19] MEDS: LEVOTHYROXINE 75MCG TABLET (0.075MG) PO SCH (06:18)
[2020-08-19] MEDS: HumaLOG INSULIN (NovoLOG) PER UNIT SC SCH ×4 (07:30→20:40)
[2020-08-19] MEDS: FUROSEMIDE 100MG/10ML VIAL (J1940) IV SCH (08:07)
[2020-08-19] MEDS: MULTIVITAMINS/MINERALS THERAP 1 TAB PO SCH (08:07)
[2020-08-19] MEDS: DOCUSATE SODIUM 100MG CAPSULE PO SCH ×2 (08:08→20:40)
[2020-08-19] MEDS: guaiFENesin ER 600 MG TAB PO SCH ×2 (08:08→20:40)
[2020-08-19] MEDS: CARVedilol 3.125 MG TAB PO SCH ×2 (08:08→20:39)
[2020-08-19] MEDS: amLODIPine 5 MG TAB PO SCH ×2 (08:08→20:40)
[2020-08-19] MEDS: ENOXAPARIN 40MG/0.4ML SYRINGE (J1650 PER 10MG) SC SCH (08:09)
[2020-08-19] MEDS ORDERED: TORS20TA2 PO (09:51)
[2020-08-19] MEDS ORDERED: CARV3.12 PO (09:51)
[2020-08-19] MEDS ORDERED: INSUDET SC (09:51)
[2020-08-19] MEDS ORDERED: INSUHUMDS SC (09:51)
[2020-08-19] MEDS ORDERED: SLF 3 ML SYR IV PRN (11:35)
--- NOTE | 2020-08-19 13:42 | IPNPDOC ---
Text Note Date of Service The patient was seen on 08/19/20. NOTE Subjective: Patient is a 70-year-old female with multiple medical problems who presented from [facility] for shortness of breath for 3 days. Patient has had a recent hospitalization from 07/07-08/01 for acute diastolic CHF with bilateral pleural effusions requiring bilateral pleural pigtail catheters for several days; this was completed by pulmonary edema from reexpansion. At [facility]. Patient did not receive any diuretics and began to experience worsening shortness of breath and was sent to the emergency room for further evaluation. Patient was admitted to the hospital service for further evaluation and treatment Patient has received a left sided thoracentesis with 1000 mL of fluid removal on 08/15. Again, she had a right-sided thoracentesis on 08/18 with 1000 mL of fluid removal. Patient was seen and examined at the bedside. Patient reports that her evening was uneventful. She reports that her breathing has improved significantly. Denies any nausea, vomiting, abdominal pain or diarrhea. Has reported improvement with ambulation as she has worked with physical therapy. Objective: Vitals (See below) General: Patient sitting up in chair, visual control is oriented to person, place and time HEENT: NC, AT CVS: +S1S2 Lungs: Again, her right lower lung field has diminished lung sounds left lower lung field has mild crackles, no wheezing or rhonchi Abdomen: Soft, nondistended, nontender Extremities: Lower extremities revealed trace to 1+ pitting edema bilaterally, - Calf tenderness Imaging: CXR 08/13: Moderate to large bilateral pleural effusions which have increased since the prior study. There is adjacent bilateral increased atelectasis/infiltrate as well as vascular congestion. Chest CT 08/13: No significant change from 07/18/2020 with findings as described above. CXR 08/14: Bilateral pleural effusions. No new infiltrate seen. Metastatic skeletal disease. Thoracentesis 08/14: Ultrasound-guided left thoracentesis with removal of 1000 mL of pleural fluid. Chest biopsy 08/14: Improved left pleural effusion. Moderate right pleural effusion persists. Assessment and plan: Acute decompensated diastolic CHF exacerbation with bilateral pleural effusions - Patient has reported improvement of breathing - Currently off nasal cannula oxygen - Has remained negative fluid balance - s/p thoracentesis bilaterally - c/w strict ins and outs, daily weights, fluid restrictions - Will start Torsemide; s/p Furosemide IV IDDM2 - A1c in June 10.5 - c/w Levemir and ISS CKD3 - Creatinine base of the proximal 1.6 - c/w diuresis Protein calorie malnutrition - Bilateral temporal wasting and wasting of small muscles of the hand and leg - Albumin 2.3 HTN - BP well controlled - c/w Amlodipine / Furosemide Hypothyroid - c/w levothyroxine Depression - c/w Fluoxetine Anemia of chronic disease and also had iron deficiency - c/w Iron supplementation Metastatic right Breast cancer - ER positive, [place] positive, HER negative - Diagnosed in June metastases to bone - Dr. Araiza on consultation - Will have outpatient follow-up with oncology DVT prophylaxis - c/w Lovenox Disposition: - Anticipate transition to rehabilitation tomorrow - ALC status today VS,Ricci, I+O VS, Ricci, I+O Laboratory Tests 08/19/20 05:21 Vital Signs Date Time Temp Pulse Resp B/P (MAP) Pulse Ox O2 Delivery O2 Flow Rate FiO2 08/19/20 10:00 97 Room Air 08/19/20 09:34 63 163/72 (102) 08/19/20 08:00 98.1 16 08/18/20 08:00 1.0 I&O- Last 24 Hours up to 6 AM 08/19/20 06:00 Intake Total 1150 ml Output Total 2500 ml Balance -1350 ml GARRY FARR MD August 19, 2020 13:42
[2020-08-19] MEDS ORDERED: SLF 3 ML SYR IV SCH (14:00)
[2020-08-19] MEDS ORDERED: TORSEMIDE 20 MG TAB PO SCH (17:00)
[2020-08-19] MEDS: TORSEMIDE 20 MG TAB PO SCH (17:59)
[2020-08-19] MEDS: FLUoxetine 10 MG CAP PO SCH (20:40)
[2020-08-19] MEDS: LEVEMIR (INSULIN DETEMIR) 1 UNITS/0.01ML SC SCH (20:40)
[2020-08-20] VITALS (7 sets, daily range): BP systolic 130–183; BP diastolic 60–79
[2020-08-20] MEDS: ACETAMINOPHEN TAB 650MG DOSE (2X325MG) PO PRN ×2 (00:56→17:35)
[2020-08-20] MEDS: LEVOTHYROXINE 75MCG TABLET (0.075MG) PO SCH (05:16)
[2020-08-20 06:21] LABS: BASO # 0.1 10^3/uL (0.0-0.2); BASO % 0.6 % (0.0-1.0); EOS # 0.3 10^3/uL (0.0-0.5); EOS % 3.5 % (0.0-3.0); HEMATOCRIT 30.9 % (36.0-47.0); LYMPH # 1.3 10^3/uL (1.5-5.0); LYMPH % 16.2 % (24.0-44.0); MEAN CORPUSCULAR HEMOGLOBIN 29.2 pg (27.0-33.0); MEAN CORPUSCULAR HGB CONC 32.4 g/dl (32.0-36.5); MEAN CORPUSCULAR VOLUME 90.1 fl (80.0-96.0); MONO # 0.9 10^3/uL (0.0-0.8); NEUTROPHILS # 5.5 10^3/uL (1.5-8.5); NEUTROPHILS % 68.2 % (36.0-66.0); PLATELET COUNT, AUTOMATED 330 10^3/uL (150-450); RED BLOOD COUNT 3.43 10^6/uL (4.00-5.40)
[2020-08-20 06:44] LABS: CALCIUM LEVEL 8.5 MG/DL (8.8-10.2); CREATININE FOR GFR 1.47 MG/DL (0.55-1.30); GLOMERULAR FILTRATION RATE 37.3 (>39)
[2020-08-20] MEDS: HumaLOG INSULIN (NovoLOG) PER UNIT SC SCH ×4 (07:30→21:00)
[2020-08-20] MEDS: CARVedilol 3.125 MG TAB PO SCH ×2 (09:46→21:13)
[2020-08-20] MEDS: guaiFENesin ER 600 MG TAB PO SCH ×2 (09:46→21:00)
[2020-08-20] MEDS: MULTIVITAMINS/MINERALS THERAP 1 TAB PO SCH (09:46)
[2020-08-20] MEDS: TORSEMIDE 20 MG TAB PO SCH ×2 (09:46→17:34)
[2020-08-20] MEDS: DOCUSATE SODIUM 100MG CAPSULE PO SCH ×2 (09:46→21:12)
[2020-08-20] MEDS: ENOXAPARIN 40MG/0.4ML SYRINGE (J1650 PER 10MG) SC SCH (09:47)
[2020-08-20] MEDS: amLODIPine 5 MG TAB PO SCH ×2 (09:47→21:13)
[2020-08-20] MEDS: FLUoxetine 10 MG CAP PO SCH (21:12)
[2020-08-20] MEDS: LEVEMIR (INSULIN DETEMIR) 1 UNITS/0.01ML SC SCH (21:14)
[2020-08-21 06:00] VITALS: BP 156/75
[2020-08-21] MEDS: LEVOTHYROXINE 75MCG TABLET (0.075MG) PO SCH (06:18)
[2020-08-21] MEDS: HumaLOG INSULIN (NovoLOG) PER UNIT SC SCH ×4 (07:30→21:00)
[2020-08-21 07:43] LABS: BASO % 0.5 % (0.0-1.0); EOS # 0.2 10^3/uL (0.0-0.5); EOS % 2.9 % (0.0-3.0); HEMATOCRIT 29.3 % (36.0-47.0); HEMOGLOBIN 9.3 g/dl (12.0-15.5); LYMPH % 12.5 % (24.0-44.0); MEAN CORPUSCULAR HEMOGLOBIN 28.9 pg (27.0-33.0); MEAN CORPUSCULAR HGB CONC 31.7 g/dl (32.0-36.5); MONO # 0.8 10^3/uL (0.0-0.8); MONO % 10.6 % (2.0-8.0); NEUTROPHILS # 5.8 10^3/uL (1.5-8.5); NEUTROPHILS % 73.1 % (36.0-66.0); PLATELET COUNT, AUTOMATED 316 10^3/uL (150-450); RED BLOOD COUNT 3.22 10^6/uL (4.00-5.40); WHITE BLOOD COUNT 7.9 10^3/uL (4.0-10.0)
[2020-08-21 08:10] LABS: BLOOD UREA NITROGEN 60 MG/DL (7-18); CALCIUM LEVEL 8.7 MG/DL (8.8-10.2); CARBON DIOXIDE LEVEL 27 MEQ/L (21-32); CHLORIDE LEVEL 105 MEQ/L (98-107); CREATININE FOR GFR 1.46 MG/DL (0.55-1.30); GLOMERULAR FILTRATION RATE 37.6 (>39); GLUCOSE, FASTING 147 MG/DL (70-100); MAGNESIUM LEVEL 2.5 MG/DL (1.8-2.4); POTASSIUM SERUM 4.8 MEQ/L (3.5-5.1); SODIUM LEVEL 139 MEQ/L (136-145)
[2020-08-21] MEDS: ACETAMINOPHEN TAB 650MG DOSE (2X325MG) PO PRN ×3 (09:46→22:11)
[2020-08-21] MEDS: MULTIVITAMINS/MINERALS THERAP 1 TAB PO SCH (09:46)
[2020-08-21] MEDS: CARVedilol 3.125 MG TAB PO SCH ×2 (09:46→20:54)
[2020-08-21] MEDS: DOCUSATE SODIUM 100MG CAPSULE PO SCH ×2 (09:46→20:54)
[2020-08-21] MEDS: TORSEMIDE 20 MG TAB PO SCH ×2 (09:47→17:27)
[2020-08-21] MEDS: amLODIPine 5 MG TAB PO SCH ×2 (09:47→20:54)
[2020-08-21] MEDS: ENOXAPARIN 40MG/0.4ML SYRINGE (J1650 PER 10MG) SC SCH (09:47)
[2020-08-21] MEDS: guaiFENesin ER 600 MG TAB PO SCH ×2 (09:47→20:55)
[2020-08-21 10:40] LABS: CK-MB VALUE MASS 2.2 NG/ML (<3.6); CPK CREATINE PHOSPHOKINASE 71 U/L (26-192); TROPONIN I < 0.02 NG/ML (< 0.10)
[2020-08-21] MEDS ORDERED: LEVALBUTEROL 1.25 MG/0.5 ML CONCENTRATE NEB INH PRN (11:05)
[2020-08-21 11:20] LABS: CK-MB VALUE MASS 1.8 NG/ML (<3.6); CPK CREATINE PHOSPHOKINASE 73 U/L (26-192); MB/CK RELATIVE INDEX 2.47 (< OR =4); TROPONIN I < 0.02 NG/ML (< 0.10)
[2020-08-21] MEDS ORDERED: GI COCKTAIL 50ML BTL(HYOSCYAMINE/MAALOX/LIDOCAINE VISCOUS)(1:3:1) PO ONE (13:00)
[2020-08-21 14:00] VITALS: BP 159/73
--- NOTE | 2020-08-21 16:58 | ECGEPIP ---
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
[2020-08-21 17:28] VITALS: BP 155/71
[2020-08-21] MEDS: FLUoxetine 10 MG CAP PO SCH (20:54)
[2020-08-21] MEDS: LEVEMIR (INSULIN DETEMIR) 1 UNITS/0.01ML SC SCH (20:56)
[2020-08-21 22:00] VITALS: BP 146/67
[2020-08-22] MEDS: LEVOTHYROXINE 75MCG TABLET (0.075MG) PO SCH (05:07)
[2020-08-22] MEDS: ACETAMINOPHEN TAB 650MG DOSE (2X325MG) PO PRN ×3 (05:07→17:40)
[2020-08-22 06:00] VITALS: BP 131/63
[2020-08-22 07:22] VITALS: BP 147/65
[2020-08-22] MEDS: HumaLOG INSULIN (NovoLOG) PER UNIT SC SCH ×4 (07:27→21:00)
[2020-08-22 08:26] LABS: BASO % 0.5 % (0.0-1.0); EOS # 0.1 10^3/uL (0.0-0.5); EOS % 1.7 % (0.0-3.0); HEMATOCRIT 29.6 % (36.0-47.0); HEMOGLOBIN 9.5 g/dl (12.0-15.5); LYMPH # 1.1 10^3/uL (1.5-5.0); LYMPH % 14.1 % (24.0-44.0); MEAN CORPUSCULAR HEMOGLOBIN 28.9 pg (27.0-33.0); MEAN CORPUSCULAR HGB CONC 32.1 g/dl (32.0-36.5); MONO % 12.4 % (2.0-8.0); NEUTROPHILS # 5.7 10^3/uL (1.5-8.5); NEUTROPHILS % 70.8 % (36.0-66.0); PLATELET COUNT, AUTOMATED 322 10^3/uL (150-450); RED BLOOD COUNT 3.29 10^6/uL (4.00-5.40); WHITE BLOOD COUNT 8.1 10^3/uL (4.0-10.0)
[2020-08-22] MEDS: ENOXAPARIN 40MG/0.4ML SYRINGE (J1650 PER 10MG) SC SCH (08:43)
[2020-08-22] MEDS: DOCUSATE SODIUM 100MG CAPSULE PO SCH ×2 (08:43→21:04)
[2020-08-22] MEDS: guaiFENesin ER 600 MG TAB PO SCH ×2 (08:43→21:04)
[2020-08-22] MEDS: MULTIVITAMINS/MINERALS THERAP 1 TAB PO SCH (08:43)
[2020-08-22] MEDS: amLODIPine 5 MG TAB PO SCH ×2 (08:44→21:05)
[2020-08-22] MEDS: CARVedilol 3.125 MG TAB PO SCH ×2 (08:46→21:05)
[2020-08-22 08:52] LABS: CALCIUM LEVEL 8.3 MG/DL (8.8-10.2); CREATININE FOR GFR 1.6 MG/DL (0.55-1.30); GLOMERULAR FILTRATION RATE 33.8 (>39); MAGNESIUM LEVEL 2.7 MG/DL (1.8-2.4)
[2020-08-22] MEDS ORDERED: TORSEMIDE 20 MG TAB PO SCH (09:00)
--- NOTE | 2020-08-22 12:03 | REP ---
INDICATION: Hypoxia COMPARISON: 08/18/2020. TECHNIQUE: PA/Lateral FINDINGS: There are relatively small bilateral pleural effusions which have not significantly changed when compared to the prior study. Bibasilar patchy parenchymal opacity also appears unchanged. The heart mediastinum are unchanged. There are mild degenerative changes of the spine. IMPRESSION: Stable exam. <Electronically signed by Stephane Vargas > 08/22/20 [id number]
[2020-08-22 12:33] VITALS: BP 146/62
--- NOTE | 2020-08-22 13:37 | REP ---
INDICATION: RLE Swelling COMPARISON: None. TECHNIQUE: Real time compression and duplex Doppler interrogation of the right lower extremity deep venous system is performed. FINDINGS: The right common femoral, superficial femoral and popliteal veins are fully compressible with transducer pressure and demonstrate normal spontaneous and phasic flow, without evidence of deep venous thrombosis. IMPRESSION: No evidence of deep venous thrombosis of the right lower extremity femoral popliteal venous system. <Electronically signed by Stephane Vargas > 08/22/20 [id number]
[2020-08-22 14:00] VITALS: BP 141/61
[2020-08-22] MEDS ORDERED: ONDANSETRON 4MG/2ML VIAL IV PRN (17:45)
[2020-08-22] MEDS: FLUoxetine 10 MG CAP PO SCH (21:04)
[2020-08-22] MEDS: LEVEMIR (INSULIN DETEMIR) 1 UNITS/0.01ML SC SCH (21:08)
[2020-08-23] MEDS: ONDANSETRON 4 MG ORAL DISINTEGRATING TAB PO PRN ×2 (02:48→17:43)
[2020-08-23 06:00] VITALS: BP 132/58
[2020-08-23] MEDS: LEVOTHYROXINE 75MCG TABLET (0.075MG) PO SCH (06:03)
[2020-08-23 06:36] LABS: BASO % 0.2 % (0.0-1.0); EOS # 0.1 10^3/uL (0.0-0.5); HEMOGLOBIN 9.3 g/dl (12.0-15.5); LYMPH # 0.9 10^3/uL (1.5-5.0); LYMPH % 10.9 % (24.0-44.0); MEAN CORPUSCULAR HEMOGLOBIN 29.1 pg (27.0-33.0); MEAN CORPUSCULAR HGB CONC 32.1 g/dl (32.0-36.5); MEAN CORPUSCULAR VOLUME 90.6 fl (80.0-96.0); MONO # 0.8 10^3/uL (0.0-0.8); MONO % 9.7 % (2.0-8.0); NEUTROPHILS # 6.4 10^3/uL (1.5-8.5); NEUTROPHILS % 77.8 % (36.0-66.0); PLATELET COUNT, AUTOMATED 302 10^3/uL (150-450); WHITE BLOOD COUNT 8.2 10^3/uL (4.0-10.0)
[2020-08-23 06:55] LABS: CALCIUM LEVEL 8.3 MG/DL (8.8-10.2); CREATININE FOR GFR 1.76 MG/DL (0.55-1.30); GLOMERULAR FILTRATION RATE 30.3 (>39); MAGNESIUM LEVEL 2.7 MG/DL (1.8-2.4); POTASSIUM SERUM 4.9 MEQ/L (3.5-5.1)
[2020-08-23] MEDS: HumaLOG INSULIN (NovoLOG) PER UNIT SC SCH ×4 (07:30→21:00)
[2020-08-23] MEDS: ENOXAPARIN 40MG/0.4ML SYRINGE (J1650 PER 10MG) SC SCH (08:23)
[2020-08-23] MEDS: guaiFENesin ER 600 MG TAB PO SCH ×2 (08:24→21:03)
[2020-08-23] MEDS: DOCUSATE SODIUM 100MG CAPSULE PO SCH ×2 (08:24→21:03)
[2020-08-23] MEDS: MULTIVITAMINS/MINERALS THERAP 1 TAB PO SCH (08:24)
[2020-08-23] MEDS ORDERED: TORSEMIDE 20 MG TAB PO SCH (09:00)
[2020-08-23 09:20] VITALS: BP 142/72
[2020-08-23] MEDS: CARVedilol 3.125 MG TAB PO SCH ×3 (09:56→21:00)
[2020-08-23] MEDS: amLODIPine 5 MG TAB PO SCH ×2 (09:58→21:03)
[2020-08-23] MEDS: LEVEMIR (INSULIN DETEMIR) 1 UNITS/0.01ML SC SCH (21:02)
[2020-08-23] MEDS: FLUoxetine 10 MG CAP PO SCH (21:04)
[2020-08-24 05:21] LABS: BASO # 0.1 10^3/uL (0.0-0.2); BASO % 0.6 % (0.0-1.0); EOS # 0.2 10^3/uL (0.0-0.5); EOS % 2.5 % (0.0-3.0); HEMATOCRIT 30.4 % (36.0-47.0); HEMOGLOBIN 9.9 g/dl (12.0-15.5); LYMPH # 1.9 10^3/uL (1.5-5.0); LYMPH % 20.8 % (24.0-44.0); MEAN CORPUSCULAR HEMOGLOBIN 29.3 pg (27.0-33.0); MEAN CORPUSCULAR HGB CONC 32.6 g/dl (32.0-36.5); MEAN CORPUSCULAR VOLUME 89.9 fl (80.0-96.0); MONO # 1.3 10^3/uL (0.0-0.8); MONO % 14.7 % (2.0-8.0); NEUTROPHILS # 5.4 10^3/uL (1.5-8.5); NEUTROPHILS % 61.1 % (36.0-66.0); PLATELET COUNT, AUTOMATED 374 10^3/uL (150-450); RED BLOOD COUNT 3.38 10^6/uL (4.00-5.40); WHITE BLOOD COUNT 8.9 10^3/uL (4.0-10.0)
[2020-08-24] MEDS: LEVOTHYROXINE 75MCG TABLET (0.075MG) PO SCH (05:41)
[2020-08-24 05:44] LABS: CALCIUM LEVEL 8.6 MG/DL (8.8-10.2); CREATININE FOR GFR 1.79 MG/DL (0.55-1.30); GLOMERULAR FILTRATION RATE 29.7 (>39); MAGNESIUM LEVEL 2.7 MG/DL (1.8-2.4); POTASSIUM SERUM 4.3 MEQ/L (3.5-5.1)
[2020-08-24 06:00] VITALS: BP 146/67
[2020-08-24] MEDS: HumaLOG INSULIN (NovoLOG) PER UNIT SC SCH ×4 (07:18→21:00)
--- NOTE | 2020-08-24 08:42 | REPVR ---
PROCEDURE INFORMATION: Exam: CT Chest Without Contrast; Diagnostic Exam date and time: 08/24/2020 8:12 AM Age: 70 years old Clinical indication: Eval for effusion; Evaluate for effusion. Diffuse osseous lesions. TECHNIQUE: Imaging protocol: Diagnostic computed tomography of the chest without contrast. 3D rendering (Not supervised by radiologist): MIP and/or 3D reconstructed images were created by the technologist. Radiation optimization: All CT scans at this facility use at least one of these dose optimization techniques: automated exposure control; mA and/or kV adjustment per patient size (includes targeted exams where dose is matched to clinical indication); or iterative reconstruction. COMPARISON: CT Chest without contrast 08/13/2020 11:52 AM FINDINGS: Bronchial tree: Visualized bronchial tree is unremarkable. Lungs: Diffuse interlobular septal thickening. Consolidations in the lower lobes bilaterally. Pleural spaces: Moderate bilateral pleural effusion. No pneumothorax. Heart: Unremarkable. No cardiomegaly. No pericardial effusion. Coronary arteries: Moderate coronary artery calcification. Aorta: No aortic aneurysm. Mild calcified atherosclerotic disease. Lymph nodes: Unremarkable. No enlarged lymph nodes. Bones/joints: Diffuse lytic and sclerotic lesions in the osseous structures. Soft tissues: Diffuse subcutaneous edema. Asymmetric breast tissue, right greater than left. Unchanged from prior. IMPRESSION: 1. Consolidations in the lower lobes bilaterally. Unchanged from prior. 2. Moderate bilateral pleural effusions. Unchanged from prior. 3. Diffuse lytic and sclerotic lesions in the osseous structures. Unchanged from prior. 4. Additional findings as described. Electronically signed by: Sharyn Leon On 08/24/2020 08:42:40 AM
[2020-08-24] MEDS: CARVedilol 3.125 MG TAB PO SCH ×2 (09:00→21:34)
[2020-08-24] MEDS: MULTIVITAMINS/MINERALS THERAP 1 TAB PO SCH (09:06)
[2020-08-24] MEDS: ENOXAPARIN 40MG/0.4ML SYRINGE (J1650 PER 10MG) SC SCH (09:06)
[2020-08-24] MEDS: guaiFENesin ER 600 MG TAB PO SCH ×2 (09:06→21:30)
[2020-08-24] MEDS: amLODIPine 5 MG TAB PO SCH ×2 (09:06→21:34)
[2020-08-24] MEDS: DOCUSATE SODIUM 100MG CAPSULE PO SCH ×2 (09:06→21:30)
[2020-08-24] MEDS: TORSEMIDE 10 MG TABLET PO SCH ×2 (09:36→17:14)
[2020-08-24] MEDS: LEVEMIR (INSULIN DETEMIR) 1 UNITS/0.01ML SC SCH (21:00)
[2020-08-24] MEDS: FLUoxetine 10 MG CAP PO SCH (21:30)
[2020-08-25] MEDS: LEVOTHYROXINE 75MCG TABLET (0.075MG) PO SCH (05:46)
[2020-08-25 06:00] VITALS: BP 162/71
[2020-08-25 06:39] LABS: BASO % 0.5 % (0.0-1.0); EOS # 0.2 10^3/uL (0.0-0.5); HEMATOCRIT 30.6 % (36.0-47.0); HEMOGLOBIN 9.8 g/dl (12.0-15.5); LYMPH # 1.3 10^3/uL (1.5-5.0); MEAN CORPUSCULAR HEMOGLOBIN 28.9 pg (27.0-33.0); MEAN CORPUSCULAR VOLUME 90.3 fl (80.0-96.0); MONO # 0.9 10^3/uL (0.0-0.8); MONO % 11.1 % (2.0-8.0); NEUTROPHILS # 5.5 10^3/uL (1.5-8.5); NEUTROPHILS % 69.6 % (36.0-66.0); PLATELET COUNT, AUTOMATED 364 10^3/uL (150-450); RED BLOOD COUNT 3.39 10^6/uL (4.00-5.40)
[2020-08-25 07:00] LABS: CALCIUM LEVEL 8.3 MG/DL (8.8-10.2); CREATININE FOR GFR 1.74 MG/DL (0.55-1.30); GLOMERULAR FILTRATION RATE 30.7 (>39); MAGNESIUM LEVEL 2.4 MG/DL (1.8-2.4); POTASSIUM SERUM 4.6 MEQ/L (3.5-5.1)
[2020-08-25] MEDS: DOCUSATE SODIUM 100MG CAPSULE PO SCH ×2 (08:06→20:45)
[2020-08-25] MEDS: MULTIVITAMINS/MINERALS THERAP 1 TAB PO SCH (08:06)
[2020-08-25] MEDS: TORSEMIDE 10 MG TABLET PO SCH (08:06)
[2020-08-25] MEDS: CARVedilol 3.125 MG TAB PO SCH ×2 (08:07→20:54)
[2020-08-25] MEDS: guaiFENesin ER 600 MG TAB PO SCH ×2 (08:07→20:45)
[2020-08-25] MEDS: amLODIPine 5 MG TAB PO SCH ×2 (08:07→20:47)
[2020-08-25] MEDS: ACETAMINOPHEN TAB 650MG DOSE (2X325MG) PO PRN ×2 (08:07→13:45)
[2020-08-25] MEDS: ENOXAPARIN 40MG/0.4ML SYRINGE (J1650 PER 10MG) SC SCH (08:08)
[2020-08-25] MEDS: HumaLOG INSULIN (NovoLOG) PER UNIT SC SCH ×4 (08:08→20:33)
[2020-08-25] MEDS: ONDANSETRON 4 MG ORAL DISINTEGRATING TAB PO PRN (13:45)
[2020-08-25] MEDS: TORSEMIDE 20 MG TAB PO SCH (17:54)
[2020-08-25] MEDS: FLUoxetine 10 MG CAP PO SCH (20:45)
[2020-08-25] MEDS: LEVEMIR (INSULIN DETEMIR) 1 UNITS/0.01ML SC SCH (20:47)
[2020-08-26 06:00] VITALS: BP 149/68
[2020-08-26] MEDS: LEVOTHYROXINE 75MCG TABLET (0.075MG) PO SCH (06:17)
[2020-08-26 06:35] LABS: BASO # 0.1 10^3/uL (0.0-0.2); BASO % 0.7 % (0.0-1.0); EOS # 0.2 10^3/uL (0.0-0.5); EOS % 2.9 % (0.0-3.0); HEMATOCRIT 30.1 % (36.0-47.0); HEMOGLOBIN 9.6 g/dl (12.0-15.5); LYMPH # 1.1 10^3/uL (1.5-5.0); LYMPH % 15.1 % (24.0-44.0); MEAN CORPUSCULAR HGB CONC 31.9 g/dl (32.0-36.5); MEAN CORPUSCULAR VOLUME 90.9 fl (80.0-96.0); MONO # 0.9 10^3/uL (0.0-0.8); MONO % 11.5 % (2.0-8.0); NEUTROPHILS # 5.2 10^3/uL (1.5-8.5); NEUTROPHILS % 69.3 % (36.0-66.0); PLATELET COUNT, AUTOMATED 375 10^3/uL (150-450); RED BLOOD COUNT 3.31 10^6/uL (4.00-5.40); WHITE BLOOD COUNT 7.5 10^3/uL (4.0-10.0)
[2020-08-26 07:05] LABS: CALCIUM LEVEL 8.3 MG/DL (8.8-10.2); CREATININE FOR GFR 1.78 MG/DL (0.55-1.30); GLOMERULAR FILTRATION RATE 29.9 (>39); MAGNESIUM LEVEL 2.5 MG/DL (1.8-2.4); POTASSIUM SERUM 4.8 MEQ/L (3.5-5.1)
[2020-08-26] MEDS: HumaLOG INSULIN (NovoLOG) PER UNIT SC SCH ×4 (07:30→20:42)
[2020-08-26] MEDS: MULTIVITAMINS/MINERALS THERAP 1 TAB PO SCH (09:04)
[2020-08-26] MEDS: ENOXAPARIN 40MG/0.4ML SYRINGE (J1650 PER 10MG) SC SCH (09:04)
[2020-08-26] MEDS: TORSEMIDE 20 MG TAB PO SCH ×2 (09:04→17:15)
[2020-08-26] MEDS: DOCUSATE SODIUM 100MG CAPSULE PO SCH ×2 (09:04→20:14)
[2020-08-26] MEDS: amLODIPine 5 MG TAB PO SCH ×2 (09:05→20:15)
[2020-08-26] MEDS: CARVedilol 3.125 MG TAB PO SCH ×2 (09:05→20:14)
[2020-08-26] MEDS: guaiFENesin ER 600 MG TAB PO SCH ×2 (09:05→20:15)
[2020-08-26] MEDS: ACETAMINOPHEN TAB 650MG DOSE (2X325MG) PO PRN (12:57)
[2020-08-26] MEDS: LEVEMIR (INSULIN DETEMIR) 1 UNITS/0.01ML SC SCH (20:14)
[2020-08-26] MEDS: FLUoxetine 10 MG CAP PO SCH (20:15)
[2020-08-26] MEDS: CALCIUM CARBONATE 500 MG CHEW U/D PO PRN (22:53)
[2020-08-27] MEDS: ACETAMINOPHEN TAB 650MG DOSE (2X325MG) PO PRN (04:22)
[2020-08-27] MEDS: LEVOTHYROXINE 75MCG TABLET (0.075MG) PO SCH (05:26)
[2020-08-27 06:00] VITALS: BP 147/61
[2020-08-27 06:34] LABS: BASO % 0.5 % (0.0-1.0); EOS # 0.2 10^3/uL (0.0-0.5); EOS % 2.5 % (0.0-3.0); HEMATOCRIT 27.6 % (36.0-47.0); HEMOGLOBIN 8.9 g/dl (12.0-15.5); LYMPH # 1.1 10^3/uL (1.5-5.0); LYMPH % 15.6 % (24.0-44.0); MEAN CORPUSCULAR HEMOGLOBIN 29.1 pg (27.0-33.0); MEAN CORPUSCULAR HGB CONC 32.2 g/dl (32.0-36.5); MEAN CORPUSCULAR VOLUME 90.2 fl (80.0-96.0); MONO # 0.9 10^3/uL (0.0-0.8); MONO % 12.1 % (2.0-8.0); NEUTROPHILS # 5.1 10^3/uL (1.5-8.5); PLATELET COUNT, AUTOMATED 360 10^3/uL (150-450); RED BLOOD COUNT 3.06 10^6/uL (4.00-5.40); WHITE BLOOD COUNT 7.3 10^3/uL (4.0-10.0)
[2020-08-27 07:04] LABS: CALCIUM LEVEL 8.6 MG/DL (8.8-10.2); CREATININE FOR GFR 1.64 MG/DL (0.55-1.30); GLOMERULAR FILTRATION RATE 32.9 (>39); MAGNESIUM LEVEL 2.4 MG/DL (1.8-2.4); POTASSIUM SERUM 4.4 MEQ/L (3.5-5.1)
[2020-08-27] MEDS: HumaLOG INSULIN (NovoLOG) PER UNIT SC SCH ×4 (07:30→21:00)
[2020-08-27] MEDS: DOCUSATE SODIUM 100MG CAPSULE PO SCH ×2 (08:52→20:04)
[2020-08-27] MEDS: amLODIPine 5 MG TAB PO SCH ×2 (08:52→20:05)
[2020-08-27] MEDS: MULTIVITAMINS/MINERALS THERAP 1 TAB PO SCH (08:52)
[2020-08-27] MEDS: TORSEMIDE 20 MG TAB PO SCH ×2 (08:53→17:21)
[2020-08-27] MEDS: CARVedilol 3.125 MG TAB PO SCH ×2 (08:53→20:05)
[2020-08-27] MEDS: guaiFENesin ER 600 MG TAB PO SCH ×2 (08:53→20:04)
[2020-08-27] MEDS: ENOXAPARIN 40MG/0.4ML SYRINGE (J1650 PER 10MG) SC SCH (08:54)
[2020-08-27 17:22] VITALS: BP 157/68
[2020-08-27] MEDS: FLUoxetine 10 MG CAP PO SCH (20:04)
[2020-08-27] MEDS: LEVEMIR (INSULIN DETEMIR) 1 UNITS/0.01ML SC SCH (20:06)
[2020-08-28] MEDS: ACETAMINOPHEN TAB 650MG DOSE (2X325MG) PO PRN ×3 (01:01→22:35)
[2020-08-28 06:00] VITALS: BP 158/64
[2020-08-28] MEDS: LEVOTHYROXINE 75MCG TABLET (0.075MG) PO SCH (06:00)
[2020-08-28 06:26] LABS: BASO % 0.5 % (0.0-1.0); EOS # 0.2 10^3/uL (0.0-0.5); EOS % 2.8 % (0.0-3.0); HEMATOCRIT 28.7 % (36.0-47.0); HEMOGLOBIN 9.2 g/dl (12.0-15.5); LYMPH # 1.5 10^3/uL (1.5-5.0); LYMPH % 23.2 % (24.0-44.0); MEAN CORPUSCULAR HGB CONC 32.1 g/dl (32.0-36.5); MEAN CORPUSCULAR VOLUME 90.5 fl (80.0-96.0); MONO # 0.8 10^3/uL (0.0-0.8); MONO % 12.5 % (2.0-8.0); NEUTROPHILS # 3.8 10^3/uL (1.5-8.5); NEUTROPHILS % 60.7 % (36.0-66.0); PLATELET COUNT, AUTOMATED 378 10^3/uL (150-450); RED BLOOD COUNT 3.17 10^6/uL (4.00-5.40); WHITE BLOOD COUNT 6.3 10^3/uL (4.0-10.0)
[2020-08-28 06:42] LABS: CALCIUM LEVEL 8.2 MG/DL (8.8-10.2); CREATININE FOR GFR 1.63 MG/DL (0.55-1.30); GLOMERULAR FILTRATION RATE 33.1 (>39); MAGNESIUM LEVEL 2.4 MG/DL (1.8-2.4); POTASSIUM SERUM 3.6 MEQ/L (3.5-5.1)
[2020-08-28] MEDS: ENOXAPARIN 40MG/0.4ML SYRINGE (J1650 PER 10MG) SC SCH (08:22)
[2020-08-28] MEDS: MULTIVITAMINS/MINERALS THERAP 1 TAB PO SCH (08:22)
[2020-08-28] MEDS: HumaLOG INSULIN (NovoLOG) PER UNIT SC SCH ×4 (08:22→21:00)
[2020-08-28] MEDS: TORSEMIDE 20 MG TAB PO SCH ×2 (08:23→17:09)
[2020-08-28] MEDS: amLODIPine 5 MG TAB PO SCH ×2 (08:23→20:05)
[2020-08-28] MEDS: guaiFENesin ER 600 MG TAB PO SCH ×2 (08:23→20:03)
[2020-08-28] MEDS: CARVedilol 3.125 MG TAB PO SCH ×2 (08:24→20:04)
[2020-08-28] MEDS: DOCUSATE SODIUM 100MG CAPSULE PO SCH ×2 (08:24→20:03)
[2020-08-28] MEDS: FLUoxetine 10 MG CAP PO SCH (20:03)
[2020-08-28] MEDS: LEVEMIR (INSULIN DETEMIR) 1 UNITS/0.01ML SC SCH (20:05)
[2020-08-28] MEDS: CALCIUM CARBONATE 500 MG CHEW U/D PO PRN (21:35)
[2020-08-29] MEDS: LEVOTHYROXINE 75MCG TABLET (0.075MG) PO SCH (05:44)
[2020-08-29 06:00] VITALS: BP 155/71
[2020-08-29] MEDS: HumaLOG INSULIN (NovoLOG) PER UNIT SC SCH ×2 (08:50→12:38)
[2020-08-29] MEDS: ENOXAPARIN 40MG/0.4ML SYRINGE (J1650 PER 10MG) SC SCH (08:51)
[2020-08-29] MEDS: MULTIVITAMINS/MINERALS THERAP 1 TAB PO SCH (08:51)
[2020-08-29] MEDS: DOCUSATE SODIUM 100MG CAPSULE PO SCH (08:51)
[2020-08-29] MEDS: TORSEMIDE 20 MG TAB PO SCH (08:53)
[2020-08-29] MEDS: guaiFENesin ER 600 MG TAB PO SCH (08:54)
[2020-08-29 08:56] VITALS: BP 174/73
[2020-08-29] MEDS: CARVedilol 3.125 MG TAB PO SCH (08:56)
[2020-08-29] MEDS: amLODIPine 5 MG TAB PO SCH (08:56)
--- NOTE | 2020-08-29 12:00 | DS.PDOC ---
Discharge Summary General Date of Admission Aug 13, 2020 at 12:52 Date of Discharge 08/29/2020 Primary Care Physician: Chana Attending Physician: LUCY REDMAN MD Discharge Summary PROCEDURES PERFORMED DURING STAY: None ADMITTING DIAGNOSES: SOB Pleural effusion CHF DISCHARGE DIAGNOSES: Acute decompensated diastolic CHF exacerbation with bilateral pleural effusions Protein calorie malnutrition IDDM CKD3 HTN Multifactorial anemia with chronic inflammation and iron deficiency Depression Metastatic breast CA COMPLICATIONS/CHIEF COMPLAINT: Chf, Pleural Effusion. HISTORY OF PRESENT ILLNESS: 70-year-old W with multiple medical problems who presented from [facility] for shortness of breath for 3 days. Patient had a recent hospitalization from 07/07-08/01 for acute diastolic CHF with bilateral pleural effusions requiring bilateral pleural pigtail catheters for several days that were c/b by pulmonary edema from reexpansion. She was eventually discharged to [facility]. While at [facility], she not receive any diuretics and began to experience worsening shortness of breath and was sent to the emergency room for further evaluation. HOSPITAL COURSE: She was found to have large bilateral pleural effusions for which she received a left sided thoracentesis with 1000 mL of fluid removal on 08/15 and she had a right-sided thoracentesis on 08/18 with 1000 mL of fluid removal. Her course by issue is detailed below: Acute decompensated diastolic CHF exacerbation with bilateral pleural effusions - Patient has reported improvement of breathing - Has remained negative fluid balance - s/p thoracentesis bilaterally - c/w strict ins and outs, daily weights, fluid restrictions - s/p IV diuretics, now continues on daily torsemide, to continue post discharge IDDM2 - c/w Levemir and ISS per home script HTN - BP well controlled - c/w Amlodipine Hypothyroid - c/w levothyroxine Depression - c/w Fluoxetine Anemia of chronic disease and also had iron deficiency - c/w Iron supplementation Metastatic right Breast cancer - ER positive, [place] positive, HER negative - Diagnosed in June metastases to bone - Dr. Araiza was consulted who confirmed that she had not yet been seen in oncology clinic and established care there - Will have outpatient follow-up with oncology for which our SW has reached out the senior network security engineer for family and patient to minimize risk of becoming loss to follow up DISCHARGE MEDICATIONS: Please see below. ALLERGIES: Please see below. PHYSICAL EXAMINATION ON DISCHARGE: VITAL SIGNS: Please see below. General: Sitting up in chair, in no acute distress, and is oriented to person, place and time HEENT: NC, AT, EOMI, MMM CVS: +S1S2 Lungs: Diminished posterior lower lung fuentes with bibasilar crackles, no wheezing or rhonchi Abdomen: Soft, nondistended, nontender Extremities: Lower extremities no significant edema LABORATORY DATA: Please see below. IMAGING: Imaging: CXR 08/13: Moderate to large bilateral pleural effusions which have increased since the prior study. There is adjacent bilateral increased atelectasis/infiltrate as well as vascular congestion. Chest CT 08/13: No significant change from 07/18/2020 with findings as described above. CXR 08/14: Bilateral pleural effusions. No new infiltrate seen. Metastatic skeletal disease. Chest XR 08/14: Improved left pleural effusion. Moderate right pleural effusion persists. PROGNOSIS: Fair, encourage oncology follow up for untreated homone receptor positive metastatic breast CA ACTIVITY: As tolerated DIET: Consistent carb DISCHARGE PLAN: Home with services DISPOSITION: Home with services DISCHARGE INSTRUCTIONS: Encouraging oncology follow up for untreated hormone receptor positive metastatic breast CA ACTIVITY: As tolerated ITEMS TO FOLLOWUP ON ON OUTPATIENT: Onc - Metastatic hormone receptor positive breast cancer PCP -CHF and other chronic conditions follow up DISCHARGE CONDITION: Stable TIME SPENT ON DISCHARGE: 47 minutes. Vital Signs/I&Os Vital Signs Date Time Temp Pulse Resp B/P (MAP) Pulse Ox O2 Delivery O2 Flow Rate FiO2 08/29/20 08:56 64 174/73 08/29/20 06:00 98.6 20 91 Room Air 08/28/20 06:00 1.0 I&O- Last 24 Hours up to 6 AM 08/29/20 06:00 Intake Total 1580 ml Output Total 3650 ml Balance -2070 ml Laboratory Data Labs 24H Laboratory Tests 2 08/28/20 16:39: Bedside Glucose (Misc Panel) 186H 08/28/20 19:56: Bedside Glucose (Misc Panel) 220H 08/29/20 05:42: Bedside Glucose (Misc Panel) 151H FSBS Laboratory Tests Test 08/28/20 16:39 08/28/20 19:56 08/29/20 05:42 Range/Units Bedside Glucose (Misc Panel) 186 220 151 83-110 MG/DL Discharge Medications Scheduled Amlodipine Besylate (Amlodipine Besylate) 10 Mg Tablet, 10 MG PO DAILY, (Reported) Ascorbic Acid (Vitamin C) 500 Mg Tablet, 500 MG PO DAILY, (Reported) Calcium Carbonate/Vitamin D3 (Calcium 600-Vit D3 400 Tablet) 1 Each Tablet, 1 TAB PO DAILY, (Reported) Carvedilol (Carvedilol) 3.125 Mg Tablet, 3.125 MG PO BID Cyanocobalamin (Vitamin B-12) (Vitamin B-12) 500 Mcg Tablet, 500 MCG PO DAILY, (Reported) Ferrous Sulfate (Ferrous Sulfate) 325 Mg Tablet, 325 MG PO DAILY, (Reported) Fluoxetine HCl (Fluoxetine HCl) 10 Mg Tablet, 10 MG PO QHS, (Reported) Insulin Detemir (Levemir) 100 Unit/1 Ml Vial, 15 UNITS SC QHS Insulin Human Lispro (Humalog) 100 Unit/1 Ml Vial, 0 UNITS SC ACHS Based on [facility] Sliding scale Levothyroxine Sodium (Levothyroxine Sodium) 75 Mcg Tablet, 75 MCG PO QAM, (Reported) Magnesium (Magnesium) 250 Mg Tablet, 250 MG PO QHS, (Reported) Thiamine HCl (Thiamine HCl) 100 Mg Tablet, 100 MG PO DAILY, (Reported) Torsemide (Torsemide) 20 Mg Tablet, 1 TAB PO BID Scheduled PRN Acetaminophen (Acetaminophen) 325 Mg Tablet, 650 MG PO Q6H PRN for PAIN / FEVER, (Reported) Docusate Sodium (Stool Softener) 100 Mg Capsule, 100 MG PO DAILY PRN for CONSTI PATION, (Reported) Ondansetron HCl (Ondansetron HCl) 4 Mg Tablet, 4 MG PO AC PRN for NAUSEA OR V OMITING, (Reported) Polyethylene Glycol 3350 (Miralax) 119 Gm Powder, 17 GM PO DAILY PRN for CON STIPATION, (Reported) dilute in 8 ounces of water or juice Sennosides (Senna Lax) 8.6 Mg Tablet, 2 TAB PO DAILY PRN for CONSTIPATION, (Reported) Simethicone (Gas-X) 125 Mg Capsule, 125 MG PO Q6H PRN for GAS PAIN, (Reported) Allergies Coded Allergies: Penicillins (Verified Allergy, Mild, rash, 07/07/20) LUCY REDMAN MD August 29, 2020 12:00
[2020-08-29] MEDS: CALCIUM CARBONATE 500 MG CHEW U/D PO PRN (12:38)
[2020-08-29] MEDS ORDERED: TORS20TA2 PO (14:23)
[2020-08-29] MEDS ORDERED: DOK1CAP7 PO (14:23)
[2020-08-29] MEDS ORDERED: ONDA4TAB6 PO (14:23)
[2020-08-29] MEDS ORDERED: METF-723 PO (14:23)
[2020-08-29] MEDS ORDERED: MUCI600T31 PO (14:23)
== END 2020-08-29 16:56 | disposition home health service (06) | DRG 291 ==
LOC: EDBD 09:16 → M ED 09:16 → M ED INP 12:52 → ENRESERV 13:17 → M PCU 15:33 → M MSPAV 08-20 23:51
PROVIDERS: ADMIT Internal Medicine Nephrology; ATTEND Internal Medicine
PROC: 0W993ZZ Drainage of Right Pleural Cavity, Percutaneous Approach (ICD-10-PCS; principal; 2020-08-14 09:00)
PROC: 0W9B3ZZ Drainage of Left Pleural Cavity, Percutaneous Approach (ICD-10-PCS; 2020-08-18)
DX: I13.0 Hypertensive heart and chronic kidney disease with heart failure and stage 1 through stage 4 chronic kidney disease, or unspecified chronic kidney disease (principal); I50.33 Acute on chronic diastolic (congestive) heart failure; C79.51 Secondary malignant neoplasm of bone; E46 Unspecified protein-calorie malnutrition; J90 Pleural effusion, not elsewhere classified; C50.911 Malignant neoplasm of unspecified site of right female breast; I27.20 Pulmonary hypertension, unspecified; E11.40 Type 2 diabetes mellitus with diabetic neuropathy, unspecified; N18.30 Chronic kidney disease, stage 3 unspecified; D50.9 Iron deficiency anemia, unspecified; F32.9 Major depressive disorder, single episode, unspecified; E03.9 Hypothyroidism, unspecified; Z79.4 Long term (current) use of insulin; Z79.899 Other long term (current) drug therapy; Z88.0 Allergy status to penicillin; E11.21 Type 2 diabetes mellitus with diabetic nephropathy; E55.9 Vitamin D deficiency, unspecified; D63.8 Anemia in other chronic diseases classified elsewhere

== ENCOUNTER → 2020-09-05 | Outpatient (REF) | payer OTHER ==
[~2020-09-05] MED LIST changes: +ACET-910 PO; +CALC600T17 PO; +CARV3.12 PO; +DOCU100C16 PO; +FERR1TAB8 PO; +FLUO10TA2 PO; +GNP8.6TA7 PO; +INSUDET SC; +INSUHUMDS SC; +LEXA5TAB13 PO; +METF-723 PO; +METF-838 PO; +MIRA3350 PO; +MM S100C PO; +MUCI600T31 PO; +ONDA-83 PO; +ONDA4TAB6 PO; +SIME125C4 PO; +THIA100T7 PO; +TORS20TA2 PO
[2020-09-05 13:33] LABS: BASO % 0.3 % (0.0-1.0); EOS # 0.1 10^3/uL (0.0-0.5); EOS % 0.7 % (0.0-3.0); HEMATOCRIT 34.2 % (36.0-47.0); HEMOGLOBIN 10.8 g/dl (12.0-15.5); LYMPH # 0.8 10^3/uL (1.5-5.0); MEAN CORPUSCULAR HEMOGLOBIN 29.2 pg (27.0-33.0); MEAN CORPUSCULAR HGB CONC 31.6 g/dl (32.0-36.5); MEAN CORPUSCULAR VOLUME 92.4 fl (80.0-96.0); MONO # 0.8 10^3/uL (0.0-0.8); MONO % 6.9 % (2.0-8.0); NEUTROPHILS # 9.7 10^3/uL (1.5-8.5); NEUTROPHILS % 84.7 % (36.0-66.0); PLATELET COUNT, AUTOMATED 458 10^3/uL (150-450); WHITE BLOOD COUNT 11.5 10^3/uL (4.0-10.0)
[2020-09-05 14:06] LABS: ALBUMIN 2.8 GM/DL (3.2-5.2); BILIRUBIN,TOTAL 0.3 MG/DL (0.2-1.0); CALCIUM LEVEL 8.7 MG/DL (8.8-10.2); CREATININE FOR GFR 2.25 MG/DL (0.55-1.30); FREE T4 1.05 NG/DL (0.76-1.46); GLOMERULAR FILTRATION RATE 22.8 (>39); POTASSIUM SERUM 4.3 MEQ/L (3.5-5.1); THYROID STIMULATING HORMONE 2.52 uIU/ML (0.358-3.740); TOTAL PROTEIN 6.5 GM/DL (6.4-8.2)
== END ==
LOC: M SFHCPLAZ 10:34
PROVIDERS: ATTEND Family Medicine
DX: I50.32 Chronic diastolic (congestive) heart failure (principal); D63.1 Anemia in chronic kidney disease; E03.9 Hypothyroidism, unspecified

== ENCOUNTER → 2020-09-05 | Outpatient (CLI) | payer OTHER ==
--- NOTE | 2020-09-05 11:07 | REPPI ---
INDICATION: I50.32 DIASTOLIC CHF,CHRONIC COMPARISON: 08/22/2020. TECHNIQUE: PA/Lateral FINDINGS: Once again there are [id number] bilateral pleural effusions, essentially unchanged on the left and slightly increased on the right. There are mild bibasilar parenchymal opacities again noted representing adjacent bibasilar atelectasis/infiltrate. The heart mediastinum are unchanged. There are mild degenerative changes of the spine. IMPRESSION: [id number] bilateral pleural effusions unchanged on the left and slightly increased on the right. <Electronically signed by Stephane Vargas > 09/05/20 1102
== END ==
LOC: M PLAIMG 10:35
PROVIDERS: ATTEND Student in an Organized Health Care Education/Training Program
DX: J90 Pleural effusion, not elsewhere classified (principal); R91.8 Other nonspecific abnormal finding of lung field; I50.32 Chronic diastolic (congestive) heart failure

== ENCOUNTER 2020-09-08 15:01 | Inpatient (IN) | payer OTHER ==
[~2020-09-08] VITALS: Ht 167.6 cm; Wt 52.3 kg
[~2020-09-08 15:01] MED LIST changes: -DOCU100C16 PO; -LEXA5TAB13 PO; -METF-838 PO
[2020-09-08] MEDS ORDERED: NS 1,000 ML IV SCH (16:25)
--- NOTE | 2020-09-08 16:53 | REP ---
INDICATION: abn labs COMPARISON: 09/05/2020 TECHNIQUE: PA and lateral. FINDINGS: Pulmonary vascular congestion and interstitial edema including moderate bilateral pleural effusions and lower lobe infiltrates/atelectasis. Findings are essentially unchanged from prior examination. IMPRESSION: Findings compatible with pulmonary vascular congestion/interstitial edema with relatively stable moderate pleural effusions and lower lobe opacities. <Electronically signed by Chuck Barraza > 09/08/20 [id number]
[2020-09-08] MEDS ORDERED: TORSEMIDE 20 MG TAB PO ONE (17:10)
[2020-09-08 17:21] LABS: BASO % 0.3 % (0.0-1.0); EOS # 0.2 10^3/uL (0.0-0.5); EOS % 1.9 % (0.0-3.0); HEMATOCRIT 32.6 % (36.0-47.0); HEMOGLOBIN 10.5 g/dl (12.0-15.5); LYMPH # 1.3 10^3/uL (1.5-5.0); LYMPH % 14.3 % (24.0-44.0); MEAN CORPUSCULAR HEMOGLOBIN 28.8 pg (27.0-33.0); MEAN CORPUSCULAR HGB CONC 32.2 g/dl (32.0-36.5); MEAN CORPUSCULAR VOLUME 89.3 fl (80.0-96.0); MONO # 0.6 10^3/uL (0.0-0.8); MONO % 7.2 % (2.0-8.0); NEUTROPHILS # 6.8 10^3/uL (1.5-8.5); PLATELET COUNT, AUTOMATED 424 10^3/uL (150-450); RED BLOOD COUNT 3.65 10^6/uL (4.00-5.40)
[2020-09-08 17:56] LABS: ALBUMIN 2.3 GM/DL (3.2-5.2); ALT/SGPT 20 U/L (12-78); BILIRUBIN,DIRECT < 0.1 MG/DL (0.0-0.2); BILIRUBIN,TOTAL 0.3 MG/DL (0.2-1.0); BLOOD UREA NITROGEN 47 MG/DL (7-18); CALCIUM LEVEL 7.9 MG/DL (8.8-10.2); CARBON DIOXIDE LEVEL 29 MEQ/L (21-32); CHLORIDE LEVEL 97 MEQ/L (98-107); CREATININE FOR GFR 2.01 MG/DL (0.55-1.30); GLUCOSE, FASTING 203 MG/DL (70-100); LIPASE 90 U/L (73-393); NT-PRO BNP 14469 PG/ML (<125); POTASSIUM SERUM 4.1 MEQ/L (3.5-5.1); SODIUM LEVEL 135 MEQ/L (136-145); TOTAL PROTEIN 6.9 GM/DL (6.4-8.2)
[2020-09-08] MEDS ORDERED: FUROSEMIDE 40MG/4ML VIAL (J1940) IV ONE (18:25)
[2020-09-08] MEDS ORDERED: DOCU100C16 PO (19:08)
[2020-09-08] MEDS ORDERED: ONDA4TAB6 PO (19:08)
[2020-09-08] MEDS ORDERED: METF-838 PO (19:08)
[2020-09-08] MEDS ORDERED: CARV3.12 PO (19:08)
[2020-09-08] MEDS ORDERED: MUCI600T31 PO (19:08)
[2020-09-08] MEDS ORDERED: TORS20TA2 PO (19:08)
[2020-09-08] MEDS ORDERED: LEXA5TAB13 PO (19:08)
[2020-09-08 19:27] LABS: RSV AMPLIFICATION NEGATIVE (NEGATIVE)
[2020-09-08] MEDS ORDERED: DEXTROSE 50% 50 ML SYRINGE IV PRN (19:45)
[2020-09-08] MEDS ORDERED: GLUCOSE 4GM CHEW TABLET PO PRN (19:45)
[2020-09-08] MEDS ORDERED: GLUCAGON INJ 1MG VIAL SC PRN (19:45)
[2020-09-08] MEDS ORDERED: MOM 30ML SUSPENSION UDC PO PRN (19:45)
--- NOTE | 2020-09-08 19:56 | HPEPDOC ---
[facility] Medical History & Physical History and Physical CHIEF COMPLAINT: HISTORY OF PRESENT ILLNESS: PAST MEDICAL HISTORY: 1. . 2. . 3. . PAST SURGICAL HISTORY: 1. . 2. . 3. . SOCIAL HISTORY: Marital status: . Resides in: Children: Employment: Tobacco use: ETOH: Illicit drug use: Tattoos done unprofessionally: . IV drug use: Other relevant social factors: FAMILY HISTORY: Father: Mother: Siblings: Children: Hereditary Diseases: Unexpected deaths due to medical reasons: ALLERGIES: Please see below. REVIEW OF SYSTEMS: CONSTITUTIONAL: . HEENT: . CARDIOVASCULAR: . RESPIRATORY: . GASTROINTESTINAL: . GENITOURINARY: . SKIN: . MUSCULOSKELETAL: . NEUROLOGICAL: . PSYCHIATRIC: . ENDOCRINE: . HEMATOLOGIC/LYMPHATIC: . HOME MEDICATIONS: Please see below. PHYSICAL EXAMINATION: VITAL SIGNS: Temperature , pulse , respiratory rate , blood pressure , pulse oximetry % on room air. GENERAL APPEARANCE: . HEENT: . CARDIOVASCULAR: . LUNGS: . ABDOMEN: . MUSCULOSKELETAL: . EXTREMITIES: . NEUROLOGICAL: . PSYCHIATRIC: . LABORATORY DATA: See below. IMAGING: MICROBIOLOGY: Please see below. ASSESSMENT: . . PLAN: 1. . Vital Signs Vital Signs Date Time Temp Pulse Resp B/P (MAP) Pulse Ox O2 Delivery O2 Flow Rate FiO2 09/08/20 19:36 16 16 168/74 (105) 92 09/08/20 15:01 97.8 Room Air Laboratory Data Labs 24H Laboratory Tests 2 09/08/20 17:11: Immature Granulocyte % (Auto) 0.3, Neutrophils (%) (Auto) 76.0H, Lymphocytes (%) (Auto) 14.3L, Monocytes (%) (Auto) 7.2, Eosinophils (%) (Auto) 1.9, Basophils (%) (Auto) 0.3, Neutrophils # (Auto) 6.8, Lymphocytes # (Auto) 1.3L, Monocytes # (Auto) 0.6, Eosinophils # (Auto) 0.2, Basophils # (Auto) 0.0, Nucleated Red Blood Cells % (auto) 0.0, Anion Gap 9, Glomerular Filtration Rate 26.0L, Calcium Level 7.9L, Total Bilirubin 0.3, Direct Bilirubin < 0.1, Aspartate Amino Transf (AST/SGOT) 11, Alanine Aminotransferase (ALT/SGPT) 20, Alkaline Phosphatase 209H, BY-Zzc-[id number]-Type Natriuretic Peptide 91683E, Total Protein 6.9, Albumin 2.3L, Albumin/Globulin Ratio 0.5L, Lipase 90 09/08/20 17:31: Urine Color YELLOW, Urine Appearance HAZY, Urine pH 6.0, Urine Specific [place] 1.010, Urine Protein 3+H, Urine Glucose (UA) 1+H, Urine Ketones NEGATIVE, Urine Blood 1+H, Urine Nitrite POSITIVEH, Urine Bilirubin NEGATIVE, Urine Urobilinogen 0.2, Urine Leukocyte Esterase 2+H, Urine WBC (Auto) 47H, Urine RBC (Auto) 26H, Urine Hyaline Casts (Auto) 0, Urine Bacteria (Auto) 2+H, Urine Squamous Epithelial Cells 1, Urine Mucus (Auto) SMALL, Urine Sperm (Auto) 09/08/20 18:35: Coronavirus (COVID-19)(PCR) NEGATIVE, Influenza Type A (RT-PCR) NEGATIVE, Influenza Type B (RT-PCR) NEGATIVE, Respiratory Syncytial Virus (PCR) NEGATIVE CBC/BMP Laboratory Tests 09/08/20 17:11 Microbiology Microbiology 09/08/20 Urine Culture, Received Pending Home Medications Scheduled Amlodipine Besylate (Amlodipine Besylate) 10 Mg Tablet, 10 MG PO DAILY Ascorbic Acid (Vitamin C) 500 Mg Tablet, 500 MG PO DAILY Calcium Carbonate/Vitamin D3 (Calcium 600-Vit D3 400 Tablet) 1 Each Tablet, 1 TAB PO DAILY Carvedilol (Carvedilol) 3.125 Mg Tablet, 3.125 MG PO BID Cyanocobalamin (Vitamin B-12) (Vitamin B-12) 500 Mcg Tablet, 500 MCG PO DAILY Escitalopram Oxalate (Lexapro) 5 Mg Tablet, 5 MG PO DAILY Ferrous Sulfate (Ferrous Sulfate) 325 Mg Tablet, 325 MG PO DAILY Guaifenesin (Mucinex) 600 Mg Tab.er.12h, 600 MG PO BID Levothyroxine Sodium (Levothyroxine Sodium) 75 Mcg Tablet, 75 MCG PO QAM Magnesium (Magnesium) 250 Mg Tablet, 250 MG PO QHS Metformin HCl (Metformin HCl ER) 500 Mg Tab.er.24h, 500 MG PO BID Thiamine HCl (Thiamine HCl) 100 Mg Tablet, 100 MG PO DAILY Torsemide (Torsemide) 20 Mg Tablet, 40 MG PO BID TAKE @ 0900, 1700 Scheduled PRN Acetaminophen (Acetaminophen) 325 Mg Tablet, 650 MG PO Q6H PRN for PAIN / FEVER Docusate Sodium (Docusate Sodium) 100 Mg Capsule, 100 MG PO BID PRN for CONSTIPATION Ondansetron (Ondansetron Odt) 4 Mg Tab.rapdis, 4 MG PO BID PRN for NAUSEA OR VOMITING Polyethylene Glycol 3350 (Miralax) 119 Gm Powder, 17 GM PO DAILY PRN for CONSTIPATION dilute in 8 ounces of water or juice Sennosides (Senna Lax) 8.6 Mg Tablet, 2 TAB PO DAILY PRN for CONSTIPATION Simethicone (Gas-X) 125 Mg Capsule, 125 MG PO Q6H PRN for GAS PAIN Allergies Coded Allergies: Penicillins (Verified Allergy, Mild, rash, 07/07/20) MEERA SHIN MD September 08, 2020 19:56
[2020-09-08 20:12] LABS: COMPLEMENT C3 124 MG/DL (90-180); COMPLEMENT C4 32 MG/DL (10-40); CPK CREATINE PHOSPHOKINASE 78 U/L (26-192); FERRITIN 132 NG/ML (8-252); IRON (FE) 24 UG/DL (50-170); PERCENT SATURATION 8.6 % (13.2-45.0); PHOSPHORUS LEVEL 4.1 MG/DL (2.5-4.9); TOTAL IRON BINDING CAPACITY 278 UG/DL (250-450); TOTAL PROTEIN 6.2 GM/DL (6.4-8.2); URIC ACID 9.4 MG/DL (2.6-6.0)
[2020-09-08 20:19] LABS: HEMOGLOBIN A1c 9.1 %
[2020-09-08 20:21] LABS: HEPATITIS B SURFACE ANTIBODY NEGATIVE (POSITIVE); TOTAL 25(OH) VITAMIN D 18.3 NG/ML (30.0-100.0)
[2020-09-08 20:22] LABS: FOLATE 15.7 NG/ML (>5.4); VITAMIN B12 LEVEL > 2000 PG/ML (247-911)
[2020-09-08 20:32] LABS: HEPATITIS B SURFACE ANTIGEN NEGATIVE (NEGATIVE)
[2020-09-08 20:42] LABS: POTASSIUM RANDOM URINE 37.7 MEQ/L; TOTAL PROTEIN,RANDOM URINE 282.5 MG/DL (0.0-12.0)
[2020-09-08] MEDS ORDERED: SIMETHICONE 80MG CHEW TAB PO PRN (20:45)
[2020-09-08] MEDS ORDERED: DOCUSATE SODIUM 100MG CAPSULE PO PRN (20:45)
[2020-09-08] MEDS ORDERED: MIRALAX *UNIT DOSE* 17GM PACKET PO PRN (20:45)
[2020-09-08] MEDS ORDERED: SENNA 8.6 MG TAB (SENOKOT) PO PRN (20:45)
[2020-09-08 21:00] LABS: HEPATITIS B CORE ANTIBODY IGM NEGATIVE (NEGATIVE)
[2020-09-08] MEDS: HumaLOG INSULIN (NovoLOG) PER UNIT SC SCH (21:00)
[2020-09-08] MEDS ORDERED: PILL CUTTER 1 EACH XX PRN (21:15)
--- NOTE | 2020-09-08 21:26 | REPVR ---
PROCEDURE INFORMATION: Exam: CT Abdomen And Pelvis Without Contrast Exam date and time: 09/08/2020 8:57 PM Age: 70 years old Clinical indication: Other: Abd distention TECHNIQUE: Imaging protocol: Computed tomography of the abdomen and pelvis without contrast. Radiation optimization: All CT scans at this facility use at least one of these dose optimization techniques: automated exposure control; mA and/or kV adjustment per patient size (includes targeted exams where dose is matched to clinical indication); or iterative reconstruction. COMPARISON: RENAL US 07/08/2020 8:14 AM FINDINGS: Lungs: Bibasilar parenchymal infiltrates with air bronchograms may represent atelectasis. Clinical correlation to exclude infection suggested. Pleural spaces: Moderate bilateral pleural effusions. Liver: Normal. No mass. Gallbladder and bile ducts: The gallbladder is incompletely distended. This is most likely related to incomplete fasting. Clinical correlation to exclude gallbladder pathology suggested. Pancreas: Normal. No ductal dilation. Spleen: Normal. No splenomegaly. Adrenal glands: There is bilateral adrenal hyperplasia. Kidneys and ureters: Marked reduction in size of the right kidney may be related to congenital hypoplasia or prior infectious or vascular etiology. Hypertrophic changes left kidney. Stomach and bowel: There is increased feces throughout the colon consistent with constipation. Impacted feces in the rectum with possible stercoral colitis. Appendix: No evidence of appendicitis. Intraperitoneal space: Unremarkable. No free air. No significant fluid collection. Vasculature: The aortoiliac vessels demonstrate moderate atherosclerotic calcification. Lymph nodes: Unremarkable. No enlarged lymph nodes. Urinary bladder: Unremarkable as visualized. Reproductive: Unremarkable as visualized. Bones/joints: Extensive lytic and blastic metastases throughout the visualized skeletal structures with a dominant destructive focus in the posterior left iliac bone. Soft tissues: There is soft tissue edema demonstrated in the abdominal wall, flanks and buttock regions consistent with anasarca. IMPRESSION: 1. Moderate bilateral pleural effusions. 2. Bibasilar parenchymal infiltrates with air bronchograms may represent atelectasis. Clinical correlation to exclude infection suggested. 3. Extensive lytic and blastic metastases throughout the visualized skeletal structures with a dominant destructive focus in the posterior left iliac bone. 4. The gallbladder is incompletely distended. This is most likely related to incomplete fasting. Clinical correlation to exclude gallbladder pathology suggested. 5. Marked reduction in size of the right kidney may be related to congenital hypoplasia or prior infectious or vascular etiology. Hypertrophic changes left kidney. 6. There is bilateral adrenal hyperplasia. 7. There is increased feces throughout the colon consistent with constipation. Impacted feces in the rectum with possible stercoral colitis. 8. Anasarca. Electronically signed by: Malachi Harper On 09/08/2020 21:26:31 PM
--- NOTE | 2020-09-08 23:02 | IPNPDOC ---
Text Note Date of Service The patient was seen on 09/08/20. VS,Shamarbone, I+O VS, Fishbone, I+O Laboratory Tests 09/08/20 17:11 Vital Signs Date Time Temp Pulse Resp B/P (MAP) Pulse Ox O2 Delivery O2 Flow Rate FiO2 09/08/20 22:45 62 20 155/70 (98) 95 09/08/20 22:28 97.5 09/08/20 15:01 Room Air MEERA SHIN MD September 08, 2020 23:02
[2020-09-08 23:15] VITALS: BP 151/65
[2020-09-09] MEDS: CARVedilol 3.125 MG TAB PO SCH ×3 (00:14→20:46)
[2020-09-09] MEDS: guaiFENesin ER 600 MG TAB PO SCH ×3 (00:14→20:46)
[2020-09-09] MEDS: HEPARIN SOD (PORCINE) 5000UNITS/ML 1ML VIAL/SYRINGE SC SCH ×2 (00:14→05:59)
--- NOTE | 2020-09-09 01:01 | HPEPDOC ---
[facility] Medical History & Physical Date of Admission September 08, 2020 Date of Service: September 08, 2020 Attending Physician: MEERA SHIN MD History and Physical CHIEF COMPLAINT: [70 y/o female presents to the ED after being found to have ELVIA on routine labwork] HISTORY OF PRESENT ILLNESS: [This is a 70 y/o female with a pmh of diastolic chf, htn, breast ca with ron mets, dm, hypothyroidism, ckd3 and anemia of chronic disease who presents to the ED after a routine visit with her PCP found elevated creatinine, who then referred her to the ED for further workup. Patient was recently discharged from our hospital on 08/29 for an acute heart failure exacerbation after a stay at [facility] in which she did not receive any diuretics. Patient states that while she was home, she felt as though she did n ot eat or drink very well, but was able to get around with a walker so was mobile. Patients states that she has had increasing weakness and fatigue for some time that has been worsening. Patient states that she also having some sob, swelling of her legs and swelling of her stomach. Patient admits to associated constipation, chills, flank pain with standing. Patient denies chest pain, abd pain, n/v/d. Patient states that she was to follow up with [facility] this 09/11 for f/u of a breast biopsy and for possible initiation of treatment of her cancer. ] PAST MEDICAL HISTORY: 1. [See HPI PAST SURGICAL HISTORY: Breast Biopsy June 2020 Bilateral pig tail placements in lungs. Tonsillectomy 1963 Appendectomy 1962 Laparoscopy - endometriosis 1997 Arthroscopic knee surgery, right 2015 SOCIAL HISTORY: Tobacco use:[denies] ETOH: [denies] Illicit drug use: [denies] FAMILY HISTORY: Reviewed - non pertinent ALLERGIES: Please see below. REVIEW OF SYSTEMS: CONSTITUTIONAL: [See HPI]. HEENT: [Denies uri sx]. CARDIOVASCULAR: [Denies chest pain, palpitations]. RESPIRATORY: [See HPI]. GASTROINTESTINAL: [See HPI]. GENITOURINARY: [Admits to urinary frequency]. SKIN: [Denies rash]. MUSCULOSKELETAL: [Denies acute joint/back pain]. NEUROLOGICAL: [Denies paresthesia]. ENDOCRINE: [Hx of DM]. HEMATOLOGIC/LYMPHATIC: [hx of metastatic dz]. HOME MEDICATIONS: Please see below. PHYSICAL EXAMINATION: VITAL SIGNS: Please see below GENERAL APPEARANCE: [This is an ill appearing 70 y/o female. She is laying in bed in no acute respiratory distress]. HEENT: [No mass or lesion. EOMI. No scleral icterus. Nares patent. oral mucosa moist without erythema.]. CARDIOVASCULAR: [Regular rate, rhythm. No murmurs, rubs or gallops]. LUNGS: [Decreased breath sounds throughout. Crackles appreciated at b/l bases.]. ABDOMEN: [Abdomen distended. Soft, nontender.]. MUSCULOSKELETAL: [No joint deformity.]. EXTREMITIES: [B/l lower extremities edematous to the knee b/l. No overlying skin changes. Pulses palpable.]. NEUROLOGICAL: [Speech clear. A+Ox3. No focal deficits.]. PSYCHIATRIC: [Depressed mood. Affect appear appropriate.]. LABORATORY DATA: See below. IMAGING: [CXR: FINDINGS: Pulmonary vascular congestion and interstitial edema including moderate bilateral pleural effusions and lower lobe infiltrates/atelectasis. Findings are essentially unchanged from prior examination. IMPRESSION: Findings compatible with pulmonary vascular congestion/interstitial edema with relatively stable moderate pleural effusions and lower lobe opacities. CT Abd/pelvis: FINDINGS: Lungs: Bibasilar parenchymal infiltrates with air bronchograms may represent atelectasis. Clinical correlation to exclude infection suggested. Pleural spaces: Moderate bilateral pleural effusions. Liver: Normal. No mass. Gallbladder and bile ducts: The gallbladder is incompletely distended. This is most likely related to incomplete fasting. Clinical correlation to exclude gallbladder pathology suggested. Pancreas: Normal. No ductal dilation. Spleen: Normal. No splenomegaly. Adrenal glands: There is bilateral adrenal hyperplasia. Kidneys and ureters: Marked reduction in size of the right kidney may be related to congenital hypoplasia or prior infectious or vascular etiology. Hypertrophic changes left kidney. Stomach and bowel: There is increased feces throughout the colon consistent with constipation. Impacted feces in the rectum with possible stercoral colitis. Appendix: No evidence of appendicitis. Intraperitoneal space: Unremarkable. No free air. No significant fluid collection. Vasculature: The aortoiliac vessels demonstrate moderate atherosclerotic calcification. Lymph nodes: Unremarkable. No enlarged lymph nodes. Urinary bladder: Unremarkable as visualized. Reproductive: Unremarkable as visualized. Bones/joints: Extensive lytic and blastic metastases throughout the visualized skeletal structures with a dominant destructive focus in the posterior left iliac bone. Soft tissues: There is soft tissue edema demonstrated in the abdominal wall, flanks and buttock regions consistent with anasarca. IMPRESSION: 1. Moderate bilateral pleural effusions. 2. Bibasilar parenchymal infiltrates with air bronchograms may represent atelectasis. Clinical correlation to exclude infection suggested. 3. Extensive lytic and blastic metastases throughout the visualized skeletal structures with a dominant destructive focus in the posterior left iliac bone. 4. The gallbladder is incompletely distended. This is most likely related to incomplete fasting. Clinical correlation to exclude gallbladder pathology suggested. 5. Marked reduction in size of the right kidney may be related to congenital hypoplasia or prior infectious or vascular etiology. Hypertrophic changes left kidney. 6. There is bilateral adrenal hyperplasia. 7. There is increased feces throughout the colon consistent with constipation. Impacted feces in the rectum with possible stercoral colitis. 8. Anasarca. ] MICROBIOLOGY: Please see below. ASSESSMENT: [This is a 70 y/o female with a pmh of diastolic chf, htn, breast ca with ron mets, dm, hypothyroidism, ckd3 and anemia of chronic disease who presents to the ED after a routine visit with her PCP found elevated creatinine, who then referred her to the ED for further workup. Upon presentation to the ED, patient found to be volume overloaded, [place] [address]. Patient repeat cr was found to be elevated to 2.01 from baseline of ~1.6. Patient appears to have an element of protein calorie malnutrition as well. ]. . PLAN: 1. [ELVIA on CKD - Unclear etiology at this time. Possibly pre-renal due to obvious third spacing of fluid, poor oral intake. Potentially progression of chronic kidney dz. - Kidneys hypotrophic on ct - Renal US ordered - Urine electrolytes ordered - will trend kidney function - Admit to med surg 2. Volume overload/anasarca - Likely secondary to heart failure, protein calorie malnutrition, metastatic dz - Begin IV lasix 40mg q8h - continue coreg 3. Metastatic dz - patient was to f/u with [facility] this week 09/11. - Day team can consider oncology consult while she is inpatient 4. Positive urinalysis - Most likely asx bacteruria. Pt does not complain of dysuria, abd pain. - Patient does complain of some urinary frequency, but has been on diuretics at home. 5. HTN - continue amlodipine, coreg 6. DM - sliding scale insulin, hypoglycemic protocol 7. Hypothyroidism - continue levothyroxine 8. Multifactorial anemia - h/h stable at 10.5/32.6 - continue iron supplement 9. Constipation - miralax, colace, senna, milk of mag, simethicone - will move to suppository if patient does not have bm 10. Depression - continue lexapro DVT prophylaxis - heparin ordered]. Vital Signs Vital Signs Date Time Temp Pulse Resp B/P (MAP) Pulse Ox O2 Delivery O2 Flow Rate FiO2 09/09/20 00:14 93 151/65 09/08/20 22:45 20 95 09/08/20 22:28 97.5 09/08/20 15:01 Room Air Laboratory Data Labs 24H Laboratory Tests 2 09/08/20 17:11: Immature Granulocyte % (Auto) 0.3, Neutrophils (%) (Auto) 76.0H, Lymphocytes (%) (Auto) 14.3L, Monocytes (%) (Auto) 7.2, Eosinophils (%) (Auto) 1.9, Basophils (%) (Auto) 0.3, Neutrophils # (Auto) 6.8, Lymphocytes # (Auto) 1.3L, Monocytes # (Auto) 0.6, Eosinophils # (Auto) 0.2, Basophils # (Auto) 0.0, Nucleated Red Blood Cells % (auto) 0.0, Anion Gap 9, Glomerular Filtration Rate 26.0L, Estimated Mean Plasma Glucose 214H, Hemoglobin A1c 9.1, Uric Acid 9.4H, Calcium Level 7.9L, Phosphorus Level 4.1, Iron Level 24L, Total Iron Binding Capacity 278, Transferrin % Saturation 8.6L, Ferritin 132, Total Bilirubin 0.3, Direct Bilirubin < 0.1, Aspartate Amino Transf (AST/SGOT) 11, Alanine Aminotransferase (ALT/SGPT) 20, Alkaline Phosphatase 209H, Total Creatine Kinase 78, WT-Ert-R-Type Natriuretic Peptide 74885I, Total Protein 6.9, Total Protein (PEP) 6.2L, Albumin 2.3L, Albumin/Globulin Ratio 0.5L, Lipase 90, Vitamin B12 Level > 2000H, 25-Hydroxy Vitamin D Total 18.3L, Folate 15.7, Parathyroid Hormone (Intact) 225.0H, Complement C3 124, Complement C4 32, Hepatitis B Surface Antigen NEGATIVE, Hepatitis B Surface Antibody NEGATIVE, Hepatitis B Core IgM Antibody NEGATIVE, Hepatitis C Antibody Index 0.0 09/08/20 17:31: Urine Color YELLOW, Urine Appearance HAZY, Urine pH 6.0, Urine Specific [place] 1.010, Urine Protein 3+H, Urine Glucose (UA) 1+H, Urine Ketones NEGATIVE, Urine Blood 1+H, Urine Nitrite POSITIVEH, Urine Bilirubin NEGATIVE, Urine Urobilinogen 0.2, Urine Leukocyte Esterase 2+H, Urine WBC (Auto) 47H, Urine RBC (Auto) 26H, Urine Hyaline Casts (Auto) 0, Urine Bacteria (Auto) 2+H, Urine Squamous Epithelial Cells 1, Urine Mucus (Auto) SMALL, Urine Sperm (Auto) , Urine Osmolality 344, Urine Random Creatinine 49.0, Urine Random Total Protein 282.5H, Urine Random Sodium 46, Urine Random Potassium 37.7, Urine Random Urea Nitrogen 422 09/08/20 18:35: Coronavirus (COVID-19)(PCR) NEGATIVE, Influenza Type A (RT-PCR) NEGATIVE, Influenza Type B (RT-PCR) NEGATIVE, Respiratory Syncytial Virus (PCR) NEGATIVE 09/09/20 00:01: Bedside Glucose ([facility]) 204H CBC/BMP Laboratory Tests 09/08/20 17:11 Microbiology Microbiology 09/08/20 Urine Culture, Received Pending Home Medications Scheduled Amlodipine Besylate (Amlodipine Besylate) 10 Mg Tablet, 10 MG PO DAILY Ascorbic Acid (Vitamin C) 500 Mg Tablet, 500 MG PO DAILY Calcium Carbonate/Vitamin D3 (Calcium 600-Vit D3 400 Tablet) 1 Each Tablet, 1 TAB PO DAILY Carvedilol (Carvedilol) 3.125 Mg Tablet, 3.125 MG PO BID Cyanocobalamin (Vitamin B-12) (Vitamin B-12) 500 Mcg Tablet, 500 MCG PO DAILY Escitalopram Oxalate (Lexapro) 5 Mg Tablet, 5 MG PO DAILY Ferrous Sulfate (Ferrous Sulfate) 325 Mg Tablet, 325 MG PO DAILY Guaifenesin (Mucinex) 600 Mg Tab.er.12h, 600 MG PO BID Levothyroxine Sodium (Levothyroxine Sodium) 75 Mcg Tablet, 75 MCG PO QAM Magnesium (Magnesium) 250 Mg Tablet, 250 MG PO QHS Metformin HCl (Metformin HCl ER) 500 Mg Tab.er.24h, 500 MG PO BID Thiamine HCl (Thiamine HCl) 100 Mg Tablet, 100 MG PO DAILY Torsemide (Torsemide) 20 Mg Tablet, 40 MG PO BID TAKE @ 0900, 1700 Scheduled PRN Acetaminophen (Acetaminophen) 325 Mg Tablet, 650 MG PO Q6H PRN for PAIN / FEVER Docusate Sodium (Docusate Sodium) 100 Mg Capsule, 100 MG PO BID PRN for CONSTIPATION Ondansetron (Ondansetron Odt) 4 Mg Tab.rapdis, 4 MG PO BID PRN for NAUSEA OR VOMITING Polyethylene Glycol 3350 (Miralax) 119 Gm Powder, 17 GM PO DAILY PRN for CONSTIPATION dilute in 8 ounces of water or juice Sennosides (Senna Lax) 8.6 Mg Tablet, 2 TAB PO DAILY PRN for CONSTIPATION Simethicone (Gas-X) 125 Mg Capsule, 125 MG PO Q6H PRN for GAS PAIN Allergies Coded Allergies: Penicillins (Verified Allergy, Mild, rash, 07/07/20) A-FIB/CHADSVASC A-FIB History Current/History of A-Fib/PAF?: No LAURA COLLINS September 09, 2020 01:01
[2020-09-09] MEDS: FUROSEMIDE 40MG/4ML VIAL (J1940) IV SCH ×2 (03:20→11:00)
[2020-09-09] MEDS: LEVOTHYROXINE 75MCG TABLET (0.075MG) PO SCH (05:59)
[2020-09-09 06:00] VITALS: BP 131/56
[2020-09-09 06:06] LABS: HEMATOCRIT 28.6 % (36.0-47.0); HEMOGLOBIN 9.4 g/dl (12.0-15.5); MEAN CORPUSCULAR HEMOGLOBIN 29.3 pg (27.0-33.0); MEAN CORPUSCULAR HGB CONC 32.9 g/dl (32.0-36.5); MEAN CORPUSCULAR VOLUME 89.1 fl (80.0-96.0); PLATELET COUNT, AUTOMATED 390 10^3/uL (150-450); RED BLOOD COUNT 3.21 10^6/uL (4.00-5.40); WHITE BLOOD COUNT 7.3 10^3/uL (4.0-10.0)
[2020-09-09 06:25] LABS: CALCIUM LEVEL 7.9 MG/DL (8.8-10.2); CREATININE FOR GFR 1.9 MG/DL (0.55-1.30); GLOMERULAR FILTRATION RATE 27.7 (>39); POTASSIUM SERUM 3.8 MEQ/L (3.5-5.1)
--- NOTE | 2020-09-09 07:50 | REP ---
INDICATION: ELVIA COMPARISON: 07/08/2020 TECHNIQUE: Real time mackenzie scale ultrasound examination using curved array transducer. FINDINGS: Chronic atrophic echogenic appearance to the right kidney is again noted and measures 6.4 x 3.2 x 2.2 cm without hydronephrosis, nephrolithiasis, or obvious cystic/mass lesion. Left kidney is normal in reniform shape and measures 11.8 x 4.9 x 5.9 cm, is normal in echogenicity and without hydronephrosis, nephrolithiasis, cystic or renal mass lesion. Bladder is unremarkable. Incidental bilateral pleural effusions noted. IMPRESSION: Chronic atrophic appearance to the right kidney. Normal appearance to the left kidney. Bilateral pleural effusions. <Electronically signed by Chuck Barraza > 09/09/20 [id number]
[2020-09-09] MEDS: ESCITALOPRAM OXALATE 5MG TABLET (LEXAPRO) PO SCH (08:30)
[2020-09-09] MEDS: ASCORBIC ACID 500 MG TAB PO SCH (08:30)
[2020-09-09] MEDS: MAGNESIUM GLUCONATE 500 MG TAB PO SCH (08:30)
[2020-09-09] MEDS: FERROUS SULFATE 325MG TAB PO SCH (08:30)
[2020-09-09] MEDS: THIAMINE 100 MG TAB PO SCH (08:30)
[2020-09-09] MEDS: CALCIUM/VITAMIN D 500 MG TAB PO SCH (08:30)
[2020-09-09] MEDS: ACETAMINOPHEN TAB 650MG DOSE (2X325MG) PO PRN ×3 (08:31→22:44)
[2020-09-09] MEDS: HumaLOG INSULIN (NovoLOG) PER UNIT SC SCH ×4 (08:34→20:49)
--- NOTE | 2020-09-09 12:18 | REP ---
INDICATION: SOB BREAST CA W BONE METS COMPARISON: 08/24/2020 TECHNIQUE: Axial noncontrast images from the thoracic inlet to the upper abdomen with coronal and sagittal reformations. This CT examination was performed using the following dose reduction techniques: Automated exposure control, adjustment of mA and/or kv according to the patient's size, and use of iterative reconstruction technique. FINDINGS: Large bilateral pleural effusions with atelectasis/partial collapse to the bilateral lower lobes as well as atelectasis involving the lingula and right middle lobe. Findings are relatively similar to recent prior examination. The visualized aerated lung fuentes are without obvious nodule or mass. Tracheobronchial tree is relatively patent. The mediastinum again demonstrates atherosclerotic changes along with mild cardiomegaly and small amount of pericardial fluid. Visualized osseous structures demonstrate diffuse sclerotic metastases involving shoulders, ribs, and vertebrae similar to prior examination. IMPRESSION: 1. Large bilateral pleural effusions with lower lobe atelectasis/partial collapse similar to prior examination. 2. Known diffuse osseous metastatic disease. <Electronically signed by Chuck Barraza > 09/09/20 [id number]
--- NOTE | 2020-09-09 13:17 | IPNPDOC ---
Date Seen The patient was seen on 09/09/20. Progress Note addendum to progressnote: Per Dr. Augustine, consult thoracic surgery Dr. Alirio Taylor for pigtail cath for b/l large pleural effusions. Per Dr. Taylor, thoracentesis of one side, then after 24hrs if no ptx, thoracentesis of the otherside. VS, I&O, 24H, Fishbone Vital Signs/I&O Vital Signs Date Time Temp Pulse Resp B/P (MAP) Pulse Ox O2 Delivery O2 Flow Rate FiO2 09/09/20 08:32 65 152/71 09/09/20 06:00 98.0 18 95 Nasal Cannula 3.0 I&O- Last 24 Hours up to 6 AM 09/09/20 06:00 Intake Total 510 ml Output Total 600 ml Balance -90 ml Laboratory Data 24H LABS Laboratory Tests 2 09/08/20 17:11: Immature Granulocyte % (Auto) 0.3, Neutrophils (%) (Auto) 76.0H, Lymphocytes (%) (Auto) 14.3L, Monocytes (%) (Auto) 7.2, Eosinophils (%) (Auto) 1.9, Basophils (%) (Auto) 0.3, Neutrophils # (Auto) 6.8, Lymphocytes # (Auto) 1.3L, Monocytes # (Auto) 0.6, Eosinophils # (Auto) 0.2, Basophils # (Auto) 0.0, Nucleated Red Blood Cells % (auto) 0.0, Anion Gap 9, Glomerular Filtration Rate 26.0L, Estimated Mean Plasma Glucose 214H, Hemoglobin A1c 9.1, Uric Acid 9.4H, Calcium Level 7.9L, Phosphorus Level 4.1, Iron Level 24L, Total Iron Binding Capacity 278, Transferrin % Saturation 8.6L, Ferritin 132, Total Bilirubin 0.3, Direct Bilirubin < 0.1, Aspartate Amino Transf (AST/SGOT) 11, Alanine Aminotransferase (ALT/SGPT) 20, Alkaline Phosphatase 209H, Total Creatine Kinase 78, PR-Lhd-Y-Type Natriuretic Peptide 40438B, Total Protein 6.9, Total Protein (PEP) 6.2L, Albumin 2.3L, Albumin/Globulin Ratio 0.5L, Lipase 90, Vitamin B12 Level > 2000H, 25-Hydroxy Vitamin D Total 18.3L, Folate 15.7, Parathyroid Hormone (Intact) 225.0H, Complement C3 124, Complement C4 32, Hepatitis B Surface Antigen NEGATIVE, Hepatitis B Surface Antibody NEGATIVE, Hepatitis B Core IgM Antibody NEGATIVE, Hepatitis C Antibody Index 0.0 09/08/20 17:31: Urine Color YELLOW, Urine Appearance HAZY, Urine pH 6.0, Urine Specific [place] 1.010, Urine Protein 3+H, Urine Glucose (UA) 1+H, Urine Ketones NEGATIVE, Urine Blood 1+H, Urine Nitrite POSITIVEH, Urine Bilirubin NEGATIVE, Urine Urobilinogen 0.2, Urine Leukocyte Esterase 2+H, Urine WBC (Auto) 47H, Urine RBC (Auto) 26H, Urine Hyaline Casts (Auto) 0, Urine Bacteria (Auto) 2+H, Urine Squamous Epithelial Cells 1, Urine Mucus (Auto) SMALL, Urine Sperm (Auto) , Urine Osmolality 344, Urine Random Creatinine 49.0, Urine Random Total Protein 282.5H, Urine Random Sodium 46, Urine Random Potassium 37.7, Urine Random Urea Nitrogen 422 09/08/20 18:35: Coronavirus (COVID-19)(PCR) NEGATIVE, Influenza Type A (RT-PCR) NEGATIVE, Influenza Type B (RT-PCR) NEGATIVE, Respiratory Syncytial Virus (PCR) NEGATIVE 09/09/20 00:01: Bedside Glucose (Misc Panel) 204H 09/09/20 05:27: Nucleated Red Blood Cells % (auto) 0.0, Anion Gap 8, Glomerular Filtration Rate 27.7L, Calcium Level 7.9L 09/09/20 12:26: Bedside Glucose (Misc Panel) 91 CBC/BMP Laboratory Tests 09/08/20 17:11 09/09/20 05:27 Microbiology Microbiology 09/08/20 Urine Culture, Received Pending OLEKSANDR PONCE MD September 09, 2020 13:17
--- NOTE | 2020-09-09 13:21 | IPN ---
PROGRESS NOTE DATE: 09/09/2020 SUBJECTIVE: The patient's shortness of breath is slightly improved. She complains of weakness and some dyspnea on exertion still requiring 3 liters of supplemental oxygen. No chest pain, pressure, or tightness. No nausea or vomiting. Diuresing well overnight. The patient complains of muscle aches. OBJECTIVE: VITAL SIGNS: Temperature 98, pulse 60, respiratory rate 18, blood pressure 152/71, 95% on 3 liters nasal cannula. INTAKE AND OUTPUT: Output of 1200 since midnight. Current weight is 60 kg. GENERAL: The patient is awake, alert, and oriented to person, place, and time. Answering questions appropriately. No use of respiratory accessory muscles. Able to speak in full sentences. She appears cachectic with bitemporal wasting. HEENT: Positive jugular venous distention. Moist mucous membranes. No scleral icterus or jaundice. HEART: S1, S2. Regular rate and rhythm. LUNGS: Diminished with bibasilar crackles. ABDOMEN: Soft, nontender, and slightly distended. EXTREMITIES: 1+ edema bilateral lower extremities. LABORATORY DATA: Microbiology has all been reviewed. Notable for creatinine of 1.9, previous creatinine 2.01. ASSESSMENT AND PLAN: This is a 70-year-old female with history of diastolic congestive heart failure, preserved systolic function, breast cancer with bony metastasis, diabetes, hypothyroidism, chronic kidney disease stage III, and anemia of chronic kidney disease who was at [facility] and was not receiving diuretics at that time, and presented to the emergency room after abnormal blood test showed elevated creatinine. The patient was to follow-up with the [facility] on 09/11 for follow-up of her breast biopsy and possible treatment for metastatic breast cancer. CT chest in the ER shows moderate bilateral pleural effusions, bibasilar parenchymal infiltrates with air bronchograms representing atelectasis. She had a previous pigtail catheter placed by Dr. Alirio Taylor, which was recently removed about a month ago. Current issues are as follows: 1. Diastolic congestive heart failure acute on chronic exacerbation with preserved systolic function. The patient is currently on fluid restriction, strict I and O (intake and output), daily weights. Creatinine is at baseline and was slightly elevated on arrival. Nephrology has been consulted to help in management of fluid balance and diuresis currently on intravenous (IV) Lasix. The patient complains of muscle aches. Electrolytes have been checked. 2. Acute on chronic renal failure stage III. Stress incontinence I&O, daily weights, and manage by nephrology. 3. Breast cancer with bony metastasis. The patient is to follow-up with Dr. Kearney at the [facility] 09/11/2020. She is currently being diuresed for heart failure and will need to reschedule her follow-up. 4. Asymptomatic bacteriuria. Await urine culture and monitor for worsening symptoms. If symptomatic, will treat with antibiotics most likely a quinolone since the patient is penicillin allergic. 5. Type 2 diabetes on hypoglycemic protocol insulin scale with fingersticks currently 91 to 151. Continue with fingersticks for now. 6. Chronic iron deficiency anemia on ferrous sulfate. 7. Depression on Lexapro. 8. Vitamin D deficiency on Os-Luigi D, calcium, and vitamin D supplements. 9. Hypertension controlled on Norvasc. 10. Hypothyroidism on chronic Synthroid.
[2020-09-09] MEDS: ONDANSETRON 4 MG ORAL DISINTEGRATING TAB PO PRN (13:23)
[2020-09-09 13:39] LABS: TOTAL PROTEIN 5.6 GM/DL (6.4-8.2)
[2020-09-09 14:00] VITALS: BP 129/56
[2020-09-09] MEDS: FUROSEMIDE injection 250 MG in D5W 225 ML IV SCH (15:07)
[2020-09-09 22:00] VITALS: BP 129/57
[2020-09-10] VITALS (9 sets, daily range): BP systolic 128–158; BP diastolic 56–72
[2020-09-10] MEDS: LEVOTHYROXINE 75MCG TABLET (0.075MG) PO SCH (05:32)
[2020-09-10] MEDS ORDERED: LevoFLOXacin 500 MG TABLET PO ONE (06:00)
[2020-09-10] MEDS: ESCITALOPRAM OXALATE 5MG TABLET (LEXAPRO) PO SCH (08:04)
[2020-09-10] MEDS: THIAMINE 100 MG TAB PO SCH (08:04)
[2020-09-10] MEDS: FERROUS SULFATE 325MG TAB PO SCH (08:04)
[2020-09-10] MEDS: CALCIUM/VITAMIN D 500 MG TAB PO SCH (08:04)
[2020-09-10] MEDS: MAGNESIUM GLUCONATE 500 MG TAB PO SCH (08:04)
[2020-09-10] MEDS: ASCORBIC ACID 500 MG TAB PO SCH (08:04)
[2020-09-10] MEDS: guaiFENesin ER 600 MG TAB PO SCH ×2 (08:04→20:52)
[2020-09-10] MEDS: HumaLOG INSULIN (NovoLOG) PER UNIT SC SCH ×4 (08:04→20:49)
[2020-09-10] MEDS: CARVedilol 3.125 MG TAB PO SCH ×2 (08:06→20:53)
[2020-09-10] MEDS: ONDANSETRON 4 MG ORAL DISINTEGRATING TAB PO PRN (08:21)
[2020-09-10 09:26] LABS: HEMATOCRIT 31.2 % (36.0-47.0); HEMOGLOBIN 10.1 g/dl (12.0-15.5); MEAN CORPUSCULAR HEMOGLOBIN 28.9 pg (27.0-33.0); MEAN CORPUSCULAR HGB CONC 32.4 g/dl (32.0-36.5); MEAN CORPUSCULAR VOLUME 89.4 fl (80.0-96.0); PLATELET COUNT, AUTOMATED 400 10^3/uL (150-450); RED BLOOD COUNT 3.49 10^6/uL (4.00-5.40); WHITE BLOOD COUNT 9.7 10^3/uL (4.0-10.0)
[2020-09-10] MEDS: VITAMIN D 50,000 UNITS CAPSULE (ERGOCALCIFEROL 1.25MG) PO SCH (09:49)
[2020-09-10 10:19] LABS: CALCIUM LEVEL 8.6 MG/DL (8.8-10.2); CREATININE FOR GFR 1.88 MG/DL (0.55-1.30); GLOMERULAR FILTRATION RATE 28.1 (>39); POTASSIUM SERUM 3.7 MEQ/L (3.5-5.1)
[2020-09-10] MEDS ORDERED: FERRIC CARBOXYMALTOSE INJ 750 MG, VIAL MATE ADAPTER 1 EACH in NS 250 ML IV ONE (11:00)
--- NOTE | 2020-09-10 11:13 | IPN ---
PROGRESS NOTE DATE: 09/10/2020 SUBJECTIVE: Patient seen and examined at bedside. Chart has been reviewed. The patient denies any chest pain, pressure, tightness, shortness of breath. She complains of fatigue. No fever, chills or cough. OBJECTIVE: VITAL SIGNS: Temperature 98, pulse 71, respiratory rate 18, blood pressure 158/72, 93% on 2 liters nasal cannula. Input 1070. Output 1800. Current weight is 59.4, previously 60. Output from midnight is 800. GENERAL: Generally awake, alert and oriented times three, answering questions appropriately. No use of respiratory accessory muscles or conversational dyspnea. HEENT: Positive jugular venous distention. Moist mucous membranes. No cervical lymphadenopathy or thyromegaly. HEART: S1, S2, regular rate and rhythm. LUNGS: Diminished. Bibasilar crackles. ABDOMEN: Soft, nontender, nondistended. EXTREMITIES: No cyanosis or clubbing. LABORATORY DATA: Pending. Chest CT 09/09/2020: Large bilateral pleural effusion, partial collapse bilateral lower lobes as well as atelectasis. Metastatic disease, diffuse. ASSESSMENT AND PLAN: This is a 70-year-old female with breast cancer stage IV metastatic to the bones, CHF, preserved systolic function, diastolic dysfunction, CKD stage III, diabetes, hypothyroidism, anemia of chronic disease, was seen at [facility] and was not receiving diuretics, presented to the ER due to abnormal blood test with elevated creatinine and shortness of breath. The patient was to follow up with the [facility] for her metastatic breast cancer. CT chest in the ER showed large bilateral pleural effusion, bibasilar infiltrates with air bronchograms representing atelectasis. She had previous pigtail catheter placed by Dr. Taylor but had removed about a month ago. CURRENT ISSUES: 1. Diastolic congestive heart failure. [id number] exacerbation. Preserved systolic function. Currently on fluid restriction. Strict input and output, daily weights, Lasix drip managed by Nephrology. Currently trying to have a net negative balance. 2. [id number] renal failure managed by Nephrology, diuresis. 3. Breast cancer with bony metastases. Outpatient followup. Patient currently has poor functional status for chemotherapy. 4. Urinary tract infection, present on hospital admission. The patient had complained of some dysuria and urgency. Thought it was because of the Lasix. Levaquin renally dosed for three days. 5. Type-2 diabetes on hyperglycemic protocol and Insulin sliding scale with finger sticks, currently controlled. 6. Chronic iron-deficiency anemia on ferrous sulfate. 7. Depression, on Lexapro. 8. Vitamin D deficiency on oscal/vit d 9. Bilateral pleural effusions, large due to diastolic decompensated heart failure. Per Dr. Alirio Taylor, attempt thoracentesis of the right today, left tomorrow. Monitor for recurrence. No pigtail catheter indicated at this time. 10. Hypothyroidism, on chronic Synthroid. MTDD
[2020-09-10 15:07] LABS: ALBUMIN 3.01 GM/DL (3.29-5.55); ALBUMIN % 48.6 % (55.8-66.1); ALPHA-1-GLOBULIN % 7.6 % (2.9-4.9); ALPHA-1-GLOBULINS 0.47 GM/DL (0.17-0.41); ALPHA-2-GLOBULINS 1.04 GM/DL (0.42-0.99); ALPHA-2-GLOBULINS % 16.7 % (7.1-11.8); BETA-1-GLOBULINS 0.47 GM/DL (0.28-0.60); BETA-1-GLOBULINS % 7.5 % (4.7-7.2); BETA-2-GLOBULINS 0.48 GM/DL (0.19-0.55); BETA-2-GLOBULINS % 7.8 % (3.2-6.5); GAMMA GLOBULIN % 11.8 % (11.1-18.8); GAMMA GLOBULINS 0.73 GM/DL (0.65-1.58)
--- NOTE | 2020-09-10 15:18 | IPN ---
PROGRESS NOTE DATE: 09/10/2020 SUBJECTIVE: Patient is seen and examined this morning at the bedside. She denies any complaints. She has been on a Lasix drip overnight, and she is diuresing satisfactorily. Her daily weight is downtrending. She is still requiring supplemental oxygen. She denies any shortness of breath at rest. Vital signs: Temperature 98.8, pulse 65, respiratory rate 20, blood pressure 131/64, saturating 92% on 2 liters nasal cannula. Intake yesterday was 1 liter. Urine output yesterday was 1800 mL. There was also incontinent voids. Weight in the bed scale today is 59.4 kg. General: Patient is seen lying in bed, elderly female. Appears somewhat frail in no apparent distress. Extraocular muscles are intact. Tongue is moist. Neck is supple. Jugular veins are elevated. Heart sounds are regular, S1, S2. There is no peripheral edema. There is no dependent edema. Lungs show diminished breath sounds at both bases with dullness at bases. She is comfortable on nasal cannula. There is no accessory muscle use or tachypnea. Abdomen is soft and nontender to palpation. There are bowel sounds. Extremities are negative for clubbing, cyanosis, or edema. Neurologic: She is awake, alert, oriented times three at baseline mentation. Skin is warm and dry. Labs show white count 9.7, hemoglobin 10.1, platelets 400. Sodium 138, potassium 3.7, bicarbonate 32, BUN 43, creatinine 1.8, magnesium 2.0. Transferrin saturation 8% with an iron level of 24. Albumin 2.3. Urinalysis with 3+ protein, and I note proteinuria has been present on her urinalysis going back at least 4 years. Urine culture grew Escherichia (E) coli. INPATIENT MEDICATIONS: She is on Lasix drip at 10 mg an hour. I ordered Injectafer 750 mg intravenous (IV) times one dose. Her remainder of medications is unchanged as compared to yesterday. PROBLEMS: 1. Decompensated diastolic congestive heart failure with BNP of 14,500 and bilateral moderate to large pleural effusions. She is on 1.8 liters fluid restriction. She is on a Lasix drip at 10 mg an hour. Continue current diuretic regimen. I am making no change today. 2. Iron deficiency anemia. Transferrin saturation 8%, iron level of 24. Injectafer 750 mg IV times one dose is ordered. 3. Proteinuric chronic kidney disease (CKD), stage IIIB, borderline stage IV. Patient used to have normal creatinine of less than 1 back in 2018. Then there was no lab work in the [facility] system until June 2020. Now her baseline renal function appears to be around GFR of 30 mL per minute. She is currently being diuresed for exacerbation of diastolic congestive heart failure. She is not suitable for angiotensin-converting enzyme (PETRA) or angiotensin-receptor prasanna (ARB). She has atrophic right kidney and most likely diabetic nephropathy underlying given her longstanding proteinuria. Her renal function has been stable with diuresis thus far. 4. Proteinuria, mostly likely related to diabetic nephropathy, but in view of age and comorbid conditions, I will get serum protein electrophoresis (SPEP), urine protein electrophoresis (UPEP), and serum-free light chains. 5. Hypomagnesemia. Continue current magnesium supplementation. 6. Escherichia (E) coli urinary tract infection (UTI), managed by the primary team. She is on renally dosed Levaquin. 7. Poorly controlled type 2 diabetes mellitus. She is no longer suitable for metformin and should be kept off of metformin in the outpatient setting in view of her renal dysfunction. 8. Long-term chronic use of nonsteroidal anti-inflammatory drug (NSAID). Patient tells me that she uses Aleve on a regular basis as an outpatient, and I have discussed with her regarding her chronic kidney disease and advised her to stay off of NSAIDs going forward. 9. Bilateral pleural effusions, recurrent. Patient had thoracentesis in June, July, and most recently on August 18. Possible drainage orchestrated by the primary team. We will continue on Lasix diuresis. If her albumin goes below 2, I will give her albumin as well.
[2020-09-10] MEDS ORDERED: SODIUM BICARBONATE 8.4% INJ 50MEQ 50 ML VIAL As Ordered ONE (15:23)
[2020-09-10] MEDS ORDERED: LIDOCAINE 1% MDV 20ML VIAL As Ordered ONE (15:23)
--- NOTE | 2020-09-10 16:44 | REP ---
INDICATION: INSPIRATION COMPARISON: 09/08/2020 TECHNIQUE: PA and lateral. FINDINGS: Moderate bilateral pleural effusions and lower lobe opacities similar to prior examination. No pneumothorax. Mediastinum and cardiac silhouette are limited in evaluation due to overlying opacities. IMPRESSION: Moderate pleural effusions and bilateral lower lobe opacities similar to prior examination. No obvious new acute process. <Electronically signed by Chuck Barraza > 09/10/20 [id number]
[2020-09-10 16:47] LABS: PH BODY FLUID 7.685 UNITS (NOT ESTABLISHED); SOURCE, BODY FLUID pH PLEURAL
[2020-09-10] MEDS: FUROSEMIDE injection 250 MG in D5W 225 ML IV SCH (17:08)
[2020-09-10 17:14] LABS: AMYLASE, BODY FLUID 23 U/L (NOT ESTABLISHED); CHOLESTEROL, BODY FLUID 69 MG/DL (NOT ESTABLISHED); LDH, BODY FLUID 81 U/L (NOT ESTABLISHED); SOURCE, BODY FLUID AMYLASE PLEURAL; SOURCE, BODY FLUID CHOL PLEURAL; SOURCE, BODY FLUID GLUCOSE PLEURAL; SOURCE, BODY FLUID LDH PLEURAL; SOURCE, BODY FLUID TRIG PLEURAL; TRIGLYCERIDE, BODY FLUID 24 MG/DL (NOT ESTABLISHED)
[2020-09-10 17:29] LABS: SOURCE, BODY FLUID ALBUMIN PLEURAL; SOURCE, BODY FLUID TOT PROTEIN PLEURAL; TOTAL PROTEIN, BODY FLUID 2.6 G/DL (NOT ESTABLISHED)
[2020-09-10 17:30] LABS: PLEURAL FL COLOR YELLOW (COLORLESS); SOURCE, BODY FLUID PLEURAL
[2020-09-10 17:31] LABS: APPEARANCE, BODY FLUID HAZY (CLEAR)
--- NOTE | 2020-09-10 17:37 | REP ---
INDICATION: left pleural effusion The patient has a history of left pleural effusion COMPARISON: None. TECHNIQUE: The procedure was performed by Yee Barroso [facility], under the direct supervision of Dr. Dunaway The risks and benefits of the procedure were explained to the patient and an informed consent was obtained both verbally and written. Directly prior to the start of the procedure a formal time-out was completed in the procedure room. Pleural fluid in left lung zone was localized using ultrasound guidance. The skin was prepped and draped in a sterile fashion. Ten ML of buffered lidocaine was used as a local anesthetic. Using ultrasound guidance an 8-Khmer multi side-hole catheter was inserted using trocar technique. FINDINGS: One thousand mL of yellow colored fluid was withdrawn and sent to the laboratory for further analysis. The patient tolerated the procedure well and there were no immediate complications. After the appropriate amount of monitored convalescence, the patient was discharged from the department. IMPRESSION: Thoracentesis with removal of 1000 mL of yellow fluid. <Electronically signed by Yee Barroso > 09/10/20 1620 <Electronically signed by Donald Dunaway > 09/10/20 [id number]
--- NOTE | 2020-09-10 17:44 | CR ---
INPATIENT NEPHROLOGY CONSULTATION DATE: 09/10/2020 REQUESTING PHYSICIAN: Dr. Jacqui Acuna CONSULTING PHYSICIAN: Dr. Kamryn Augustine REASON FOR CONSULTATION: Management of diuresis in this patient with chronic kidney disease stage 3b, borderline stage 4, admitted with fluid overload and pleural effusions. PAST MEDICAL HISTORY: Miss Nicole Sheikh is previously unknown to me. She is a 70-year-old female a past medical history of chronic kidney disease stage 3b borderline stage 4. On review of prior labs going back to June of 2020. The patient also has a past medical history of: 1. Diastolic congestive heart failure. 2. Hypertension. 3. Breast cancer with bony metastasis. 4. Longstanding type 2 diabetes mellitus (more than 20 years duration). 5. Hypothyroidism. 6. Iron deficiency anemia. 7. History of recurrent pleural effusion and other comorbid conditions mentioned below. 8. Type 2 diabetes mellitus. 9. Diabetic nephropathy. 10. Proteinuric chronic kidney disease stage 3. HISTORY OF PRESENT ILLNESS: The patient was sent to the Emergency Room by her primary care physician, Dr. Santos on Augusth for a concern of abnormal blood work including elevated creatinine. Of note, the patient was recently discharged from [facility] on August 29 after an admission for decompensated congestive heart failure. She did require thoracentesis in June 2020, July 2020 and most recently on August 18, 2020. The patient notes using Aleve on an as-needed basis, about two tablets daily, but she denies any nausea, vomiting or diarrhea. She has not yet seen Oncology for management of her breast cancer and was scheduled for an initial appointment on September 11 with the [facility]. PAST SURGICAL HISTORY: The patient's past surgical history is significant for: 1. Breast biopsy. 2. History of bilateral pigtail placements in the lungs. 3. Recurrent thoracentesis. 4. Tonsillectomy. 5. Appendectomy. 6. Laparoscopy. 7. Arthroscopic knee surgery. FAMILY HISTORY: The patient denies family history of renal disease. SOCIAL HISTORY: The patient denies tobacco, alcohol or drugs. ALLERGIES: PENICILLINS. HOME MEDICATIONS: Reviewed and include: 1. Amlodipine 10 mg p.o. daily. 2. Vitamin C 500 mg p.o. daily. 3. Calcium Plus vitamin D one daily. 4. Carvedilol 3.125 mg p.o. twice daily. 5. Vitamin B-12 500 mcg p.o. daily. 6. Lexapro 5 mg p.o. daily. 7. Ferrous Sulfate 325 mg p.o. daily. 8. Mucinex 600 mg p.o. twice daily. 9. Levothyroxine 75 mcg p.o. in the morning. 10. Magnesium 250 mg p.o. q. h.s. 11. Metformin 500 mg p.o. twice daily. 12. Torsemide 40 mg p.o. twice daily. 13. Thiamine 100 mg p.o. daily. 14. Tylenol p.r.n. 15. Zofran p.r.n. 16. Senna p.r.n. REVIEW OF SYSTEMS: Constitutional: She reports weakness and fatigue but denies fevers or chills. Eyes: She denies visual changes or tearing. ENT: She denies epistaxis, rhinorrhea or odynophagia. Cardiac: She has a history of congestive heart failure. Denies any chest pain and reports she has had leg edema in the past but none recently. Respiratory: History of recurrent pleural effusions and history of recurrent thoracentesis and pigtail catheters. She complains of shortness of breath with simple exertion. Gastrointestinal: She denies nausea, vomiting, or diarrhea. Genitourinary: She denies dysuria or hematuria. She has been told previously that she has protein in the urine. Hematologic: Iron deficiency anemia. She denies anticoagulant use. Musculoskeletal: She denies any acute myalgias, arthralgias or gout. Neurologic: She denies seizure or syncope. Endocrine: She reports history of diabetes and hypothyroidism. Oncologic: She reports history of breast cancer with bony metastasis but has not yet had initial visit with Oncologist. Skin: She denies any new rashes or ulcers. The remainder of the review of systems is negative or as per HPI. PHYSICAL EXAMINATION: VITAL SIGNS: Temperature 98.0, pulse 60, respiratory rate 18, blood pressure 131/56, saturating 95% on 3 liters nasal cannula. Weight in the bed scale today is 60 kg. GENERAL APPEARANCE: The patient is seen lying in bed, elderly female somewhat frail appearing but in no distress. She is also seen ambulating around the room using the walker. HEENT: The extraocular muscles are intact. Tongue is moist. NECK: Supple. Jugular veins are mildly elevated. HEART: Regular. S1, S2. There are some varicosities in the lower extremities but no navjot edema. LUNGS: Diminished breath sounds at both bases, but there is no accessory muscle use and no tachypnea. She is able to speak in full sentences. ABDOMEN: Soft and there are bowel sounds. I do not appreciate any bladder fullness. EXTREMITIES: There is at most trace edema and there are some varicosities present. NEUROLOGICAL: She is oriented x3, interactive and conversational. PSYCHIATRIC: She appears depressed. IMAGING DATA: CT abdomen and pelvis without contrast done on September 08 shows moderate bilateral pleural effusions, bilateral adrenal hyperplasia, atrophic right kidney, fecal buildup. Bladder is unremarkable as visualized. There is extensive lytic and blastic metastasis throughout the visualized skeletal structures. Soft tissues show soft tissue edema in the abdominal wall, flanks and buttock region consistent with anasarca. Renal ultrasound done today shows incidental bilateral pleural effusions and chronic atrophic appearance of right kidney (only 6.4 cm). Chest CT September 09 shows large bilateral pleural effusions with lower lobe atelectasis and partial collapse. INPATIENT MEDICATIONS: The patient is presently receiving Lasix 40 mg q. 8 hourly. I have discontinued this and switched her over to a Lasix drip at 10 mg an hour. She is on Mucinex 600 mg p.o. twice daily, Tylenol 650 mg p.r.n., Amlodipine 10 mg p.o. daily, vitamin C 500 mg p.o. daily, calcium plus vitamin D 500 mg p.o. daily, Carvedilol 3.125 mg p.o. twice daily, Lexapro 5 mg daily, Ferrous Sulfate 325 mg p.o. daily, Insulin, Levofloxacin 500 mg p.o. times one, Levothyroxine 75 mcg p.o. daily, Magnesium Gluconate 250 mg p.o. daily, Senokot p.r.n., LABORATORY DATA: Today's labs show a white count of 7.3, hemoglobin 9.4, platelet count 390. Sodium 137, potassium 3.8, bicarbonate 29, BUN 45, creatinine 1.9, BUN 45, creatinine 1.9, GFR 27. Her admission creatinine was 2.0. PTH 225, vitamin D 18, BNP 14,500. PROBLEMS: 1. Acute decompensated diastolic congestive heart failure echocardiogram from July 22, 2020 is reviewed with a grade 2 diastolic dysfunction. The patient is in fluid overload. Her BNP is 14,500. She has moderate to large bilateral pleural effusions. CAT scan also demonstrates anasarcic appearance of the soft tissues of the abdomen. At home she takes Torsemide 40 mg p.o. twice daily. I am going to place her on a Lasix drip while she is in the hospital to run at 8-10 mg an hour for further diuresis, and she is placed on a 1.8 liter fluid restriction. 2. Recurrent pleural effusions - The patient has required thoracentesis, most recently on August 18, but also in July and in June. Her pleural effusions continue to reoccur. Primary Team is going to see if I.R. can drain them. In the meanwhile I will optimize her volume status with further diuresis and the patient is being started on a Lasix drip. She is also noted to be hypoalbuminemic with a serum albumin level of 2.3, but I will hold off on albumin infusion for now, and we will see how she does with Lasix alone. 3. Anemia - Hemoglobin has been between 8 and 10. On review of labs the past couple of months, I am getting iron studies. Her B-12 and folate levels were acceptable. We will given her iron infusion if she is iron deficient. 4. Chronic kidney disease stage 3b I reviewed her prior labs going back to June of 2020. Her baseline GFR appears to be around 30 mL per minute. She did have more normal renal function in 2019 with a creatinine of less than 1 at that time, but there is about a 20-month period with no labs in the [facility] system from September of 2018 to June of 2020. Sometime during that period her renal issues progressed. On imaging she has significantly atrophic right kidney and most of her function is coming from the left kidney. 5. Atrophy of kidney, terminal - discussed with the patient that her right kidney is significantly atrophic and likely poorly functioning or even more likely non-functioning and most of her renal function is coming from her left kidney. 6. Hypertension - blood pressures are acceptable and no change is being made to the current regimen. She is Amlodipine and Carvedilol plus diuretic. 7. Hypomagnesemia - continue potassium supplementation. 8. Secondary hyperparathyroidism of renal origin PTH is 225. She is vitamin D deficient. Start 50,000 units vitamin D once weekly. 9. Longstanding poorly controlled type 2 diabetes mellitus the last 4 A1c's in the system range between 9.1 to 11.4% and the patient appears to have chronic poor control and has attendant diabetic nephropathy given proteinuria. Thank you for involving me in the care of Miss Sheikh. I will be happy to follow her along with you.
[2020-09-10] MEDS: ACETAMINOPHEN TAB 650MG DOSE (2X325MG) PO PRN (23:03)
[2020-09-11] MEDS: LevoFLOXacin 250 MG TABLET PO SCH (05:27)
[2020-09-11] MEDS: LEVOTHYROXINE 75MCG TABLET (0.075MG) PO SCH (05:27)
[2020-09-11 05:43] LABS: HEMOGLOBIN 10.1 g/dl (12.0-15.5); MEAN CORPUSCULAR HEMOGLOBIN 28.8 pg (27.0-33.0); MEAN CORPUSCULAR HGB CONC 32.6 g/dl (32.0-36.5); MEAN CORPUSCULAR VOLUME 88.3 fl (80.0-96.0); PLATELET COUNT, AUTOMATED 386 10^3/uL (150-450); RED BLOOD COUNT 3.51 10^6/uL (4.00-5.40); WHITE BLOOD COUNT 9.4 10^3/uL (4.0-10.0)
[2020-09-11 06:00] VITALS: BP 152/73
[2020-09-11 06:22] LABS: BLOOD UREA NITROGEN 42 MG/DL (7-18); CREATININE FOR GFR 1.83 MG/DL (0.55-1.30); GLUCOSE, FASTING 238 MG/DL (70-100)
[2020-09-11 06:23] LABS: CARBON DIOXIDE LEVEL 31 MEQ/L (21-32); CHLORIDE LEVEL 99 MEQ/L (98-107); POTASSIUM SERUM 4.1 MEQ/L (3.5-5.1); SODIUM LEVEL 136 MEQ/L (136-145); TOTAL PROTEIN 5.4 GM/DL (6.4-8.2)
[2020-09-11] MEDS: CALCIUM/VITAMIN D 500 MG TAB PO SCH (08:12)
[2020-09-11] MEDS: HumaLOG INSULIN (NovoLOG) PER UNIT SC SCH ×4 (08:12→21:00)
[2020-09-11] MEDS: THIAMINE 100 MG TAB PO SCH (08:12)
[2020-09-11] MEDS: ASCORBIC ACID 500 MG TAB PO SCH (08:12)
[2020-09-11] MEDS: MAGNESIUM GLUCONATE 500 MG TAB PO SCH (08:12)
[2020-09-11] MEDS: CARVedilol 3.125 MG TAB PO SCH ×2 (08:13→21:04)
[2020-09-11] MEDS: FERROUS SULFATE 325MG TAB PO SCH (08:13)
[2020-09-11] MEDS: ESCITALOPRAM OXALATE 5MG TABLET (LEXAPRO) PO SCH (08:13)
[2020-09-11] MEDS: guaiFENesin ER 600 MG TAB PO SCH ×2 (08:13→21:04)
[2020-09-11] MEDS ORDERED: PERCOCET 5MG/325MG TAB PO ONE (08:30)
[2020-09-11 14:00] VITALS: BP 122/61
[2020-09-11] MEDS: FUROSEMIDE injection 250 MG in D5W 225 ML IV SCH (14:42)
--- NOTE | 2020-09-11 16:44 | IPN ---
PROGRESS NOTE DATE: 09/11/2020 SUBJECTIVE: Yesterday, patient had a thoracentesis of the right pleural effusion with 1 liter of yellow fluid removed. She remained afebrile. Shortness of breath is only slightly improved. She complains of pain when she takes a deep breath, especially on the right, where the thoracentesis needle was placed. Patient is due for a left-sided thoracentesis today per recommendation by thoracic surgery. She remains afebrile. No cough, nausea or vomiting. Her appetite is still diminished, but tolerating her diet and is trying "the best I can." PHYSICAL EXAMINATION: VITAL SIGNS: Temperature 97.9, pulse 66, respiratory rate 18, blood pressure 152/73, 93% on 2 liters nasal cannula. GENERAL: Patient is awake, alert, oriented times three, very soft-spoken, not hard of hearing. HEENT: Mild jugular venous distention (JVD). No thyromegaly or cervical lymphadenopathy. Moist mucous membranes. HEART: S1, S2. Regular rate and rhythm. LUNGS: Diminished. ABDOMEN: Soft, nontender, nondistended. Positive bowel sounds. EXTREMITIES: No cyanosis or clubbing. LABORATORY DATA: CBC and metabolic panel have been reviewed. Notable for creatinine 1.83 from previous admission creatinine of 2.01. Input overnight 2360, output 2875, negative 515. Current weight is 59.5 kilos from admission weight of 60 kilograms. ASSESSMENT: This is a 70-year-old female with history of stage IV breast cancer metastatic to the bones, congestive heart failure with preserved ejection fraction, chronic anemia, hypothyroidism, diabetes, chronic kidney disease stage III, was sent to [facility] emergency room (ER) due to abnormal creatinine, was found to have decompensated congestive heart failure and acute on chronic renal failure stage III. CURRENT ISSUES ARE FOLLOWS: 1. Acute decompensated diastolic congestive heart failure with preserved systolic function. Currently being diuresed by nephrology. Patient has remained in net negative balance. She is kept on strict intake and output (I's and O's), daily weights. Creatinine seems to be stable, remains at the same stage. 2. Acute on chronic renal failure secondary to decompensated congestive heart failure (CHF), managed by nephrology. 3. Breast cancer, stage IV, with bony metastasis. Outpatient followup. Patient has poor functional status, but most likely will receive hormonal therapy along with chemotherapy. 4. Urinary tract infection. Day #2 of Levaquin, renally dosed. 5. Type 2 diabetes, on sliding scale, consistent carbohydrate diet. 6. Chronic iron deficiency anemia, on ferrous sulfate. 7. Depression, on Lexapro. 8. Vitamin D deficiency, on Os-Luigi and vitamin D. 9. Bilateral pleural effusions due to decompensated heart failure. Similar episode last time with negative pathology for malignant pleural effusion per Dr. Alirio Taylor. Thoracentesis times two one day apart to decrease risk of pneumothorax on both lungs. 10. Hypothyroidism, on chronic Synthroid.
--- NOTE | 2020-09-11 16:51 | IPN ---
NEPHROLOGY PROGRESS NOTE DATE: 09/11/2020 SUBJECTIVE: The patient is seen and examined this morning at the bedside. Yesterday she underwent left sided thoracentesis with one liter of fluid drained. Right sided thoracentesis is still pending. She reports improved breathing. She denies any complaints today. She is still requiring 2 liters nasal cannula. She is diuresing well with stable renal function. OBJECTIVE: PHYSICAL EXAMINATION: VITAL SIGNS: Temperature 97.9, pulse 56, respiratory rate 16, blood pressure 122/61, saturating 91-93% on room air. INTAKE AND OUTPUT: Intake yesterday was 2.3 liters. Urine output was 3 liters. Net negative about 700 mL. Weight in the bed scale today was not recorded. GENERAL APPEARANCE: The patient is seen awake, alert, oriented, lying in bed in no apparent distress, elderly female. HEENT: The extraocular muscles are intact. Tongue is moist. NECK: Supple. Jugular veins are mildly elevated. HEART: Regular. S1, S2. There is no peripheral edema. There is no dependent edema. LUNGS: Diminished breath sounds on the right with more clearer breath sounds on the left. She is on nasal cannula. There is no accessory muscle use. There is no tachypnea. ABDOMEN: Soft and nontender to palpation. There are bowel sounds. EXTREMITIES: Negative for clubbing, cyanosis, or edema. NEUROLOGICAL: She is awake, alert, oriented x3, at baseline mentation. LABORATORY STUDIES: White count 9.4, hemoglobin 10.1, platelet count 386. Sodium 136, potassium 4.1, bicarbonate 31, BUN 42, creatinine 1.8. SPEP showed no M-spike. IMAGING: Chest x-ray done yesterday shows moderate pleural effusion. CURRENT INPATIENT MEDICATIONS: The patient's medications were reviewed by myself. She continues on a Lasix drip at 10 mg per hour. She was given a dose of Percocet this morning. Her remainder medications are unchanged as compared to yesterday. PROBLEMS: 1. Decompensated diastolic congestive heart failure with BNP of 14,500 and bilateral moderate to large pleural effusions - She is on a 1.8 liter fluid restriction. She continues to diurese well on Lasix drip at 10 mg an hour with stable renal function and with net negative fluid status. Her output was not fully recorded yesterday given that she also had one liter thoracentesis drainage. I am making no change to today's diuretic regimen. 2. Iron deficiency anemia She continues on oral iron supplementation and she received a dose of Injectafer 750 mg times one and she will get a second dose of Injectafer in the outpatient setting. Hemoglobin is stable at 10.1. 3. Chronic kidney disease stage 3b borderline stage 4 the patient's GFR is about 30 mL per minute, and she is tolerating diuresis well with the Lasix drip. She has known proteinuria and SPEP returned back without M-spike. UPEP and free light chain ratio is pending. She has known atrophic right kidney and most of her renal function is coming from her left kidney and she likely has underlying diabetic nephropathy given longstanding proteinuria. 4. Proteinuria - most likely related to diabetic nephropathy, but the serologic workup was sent and is pending. SPEP returned back negative. 5. Poorly controlled type 2 diabetes she is no longer suitable for Metformin as an outpatient and I discussed the same with her. She also used Aleve regularly in the outpatient setting and understands not to take NSAIDS going forward. 6. Bilateral recurrent pleural effusions she has had thoracentesis in June and July and on August 18 and most recently yesterday, September 10 and she is going to have a right sided thoracentesis at some point, probably this week. And we will continue with Lasix diuresis. If her albumin goes below 2 I will give albumin as well. 7. Hypomagnesemia - continue current magnesium supplementation. 8. E-coli urinary tract infection managed by the Primary Team on renally dosed Levaquin. 9. Secondary hyperparathyroidism of renal origin she is on vitamin D supplementation. Her corrected calcium is acceptable.
[2020-09-11] MEDS: MAALOX 30 ML SUSP *UDC PO PRN (21:26)
[2020-09-11 22:00] VITALS: BP 141/65
[2020-09-12] MEDS: LEVOTHYROXINE 75MCG TABLET (0.075MG) PO SCH (05:12)
[2020-09-12] MEDS: LevoFLOXacin 250 MG TABLET PO SCH (05:12)
[2020-09-12 06:00] VITALS: BP 149/66
[2020-09-12 07:51] LABS: HEMATOCRIT 32.4 % (36.0-47.0); HEMOGLOBIN 10.8 g/dl (12.0-15.5); MEAN CORPUSCULAR HEMOGLOBIN 29.6 pg (27.0-33.0); MEAN CORPUSCULAR HGB CONC 33.3 g/dl (32.0-36.5); MEAN CORPUSCULAR VOLUME 88.8 fl (80.0-96.0); PLATELET COUNT, AUTOMATED 416 10^3/uL (150-450); RED BLOOD COUNT 3.65 10^6/uL (4.00-5.40); WHITE BLOOD COUNT 8.8 10^3/uL (4.0-10.0)
[2020-09-12] MEDS: CARVedilol 3.125 MG TAB PO SCH ×2 (07:58→20:21)
[2020-09-12] MEDS: CALCIUM/VITAMIN D 500 MG TAB PO SCH (07:58)
[2020-09-12] MEDS: MAGNESIUM GLUCONATE 500 MG TAB PO SCH (07:58)
[2020-09-12] MEDS: FERROUS SULFATE 325MG TAB PO SCH (07:58)
[2020-09-12] MEDS: THIAMINE 100 MG TAB PO SCH (07:59)
[2020-09-12] MEDS: ASCORBIC ACID 500 MG TAB PO SCH (07:59)
[2020-09-12] MEDS: guaiFENesin ER 600 MG TAB PO SCH ×2 (07:59→20:21)
[2020-09-12] MEDS ORDERED: PERCOCET 5MG/325MG TAB PO ONE (08:00)
[2020-09-12] MEDS: ESCITALOPRAM OXALATE 5MG TABLET (LEXAPRO) PO SCH (08:03)
[2020-09-12 08:25] LABS: CALCIUM LEVEL 8.4 MG/DL (8.8-10.2); CREATININE FOR GFR 1.78 MG/DL (0.55-1.30); GLOMERULAR FILTRATION RATE 29.9 (>39); POTASSIUM SERUM 3.5 MEQ/L (3.5-5.1)
--- NOTE | 2020-09-12 08:40 | IPN ---
PROGRESS NOTE DATE: 09/12/2020 SUBJECTIVE: The patient complains of rib pain alleviated by Percocet, but says that two tablets are too much for her and she "can't feel anything after." The patient denies any shortness of breath and feels that her breathing has much improved than on admission. She had a left thoracentesis done on 09/10 with 1 liter removed. No pneumothorax on repeat x-ray. Input and output have been reviewed. The patient has been net negative balance on Lasix drip. Weight currently 62.4 kg from admission weight of 60 kg. Output was 1.4 yesterday and 850 today, negative 40 mL today, negative 680 mL today. The patient's creatinine remains stable at stage IV with GFR of 29. OBJECTIVE: VITAL SIGNS: Temperature 97.8, pulse 60, respiratory rate 18, blood pressure 149/66, 94% on 3 liters nasal cannula. GENERAL: No respiratory distress or use of respiratory accessory muscles. Able to speak in full sentences. NECK: No tracheal deviation. No stridor. No carotid bruit. HEENT: Moist mucous membranes. LUNGS: Clear. Air entry is equal. HEART: S1, S2. Sinus rhythm. ABDOMEN: Soft, nontender, and nondistended with positive bowel sounds. EXTREMITIES: No cyanosis or clubbing. LABORATORY DATA: CBC and metabolic panel have been reviewed. IMAGING DATA: Reviewed. ASSESSMENT: This is a 70-year-old female with history of metastatic stage IV breast cancer with bony metastasis, chronic kidney disease stage III, congestive heart failure, diastolic dysfunction with preserved systolic ejection fraction, chronic anemia, hypothyroidism, and diabetes sent to the ER due to abnormal creatinine and found to have decompensated congestive heart failure (CHF) and acute on chronic renal failure stage III with moderate bilateral pleural effusions. Prior effusions were negative for malignancy thought to be secondary to CHF. IMPRESSION: 1. Acute decompensated diastolic heart failure with preserved systolic function. 2. Acute on chronic renal failure stage III to IV due to CHF. 3. Stage IV breast cancer with bony metastasis. 4. Rib pain. 5. Urinary tract infection. Completed three days of Levaquin. 6. Type 2 diabetes. 7. Chronic iron deficiency anemia. 8. Bilateral large pleural effusion secondary to heart failure. 9. Vitamin D deficiency. 10. Hypothyroidism. PLAN: Per Dr. Alirio Taylor PleurX catheter not necessary as long as the patient's pleural effusions have been evacuated. He recommended thoracentesis of the left first then thoracentesis of the right. Nephrology is managing the patient's Lasix drip. Continued on all other home medications. The patient's pain is uncontrolled at this time and has been given Percocet as needed q. 4 hourly. Compression stockings for now due to planned thoracentesis today. TINA
[2020-09-12] MEDS: HumaLOG INSULIN (NovoLOG) PER UNIT SC SCH ×4 (08:56→20:17)
--- NOTE | 2020-09-12 10:11 | REP ---
INDICATION: left pleural effusion COMPARISON: 09/10/2020 TECHNIQUE: Portable AP view of the chest FINDINGS: Moderate bilateral pleural effusions and lower lobe opacities are similar to prior examination and without significant change. Visualized mediastinum and cardiac silhouette are stable and within normal limits. No pneumothorax. Skeletal structures unchanged. IMPRESSION: Moderate bilateral pleural effusions and lower lobe opacities essentially unchanged. <Electronically signed by Chuck Barraza > 09/12/20 [id number]
[2020-09-12 10:47] LABS: TOTAL PROTEIN 6.2 GM/DL (6.4-8.2)
[2020-09-12 11:41] LABS: ALBUMIN 2.44 GM/DL (3.29-5.55); ALBUMIN % 45.2 % (55.8-66.1); ALPHA-1-GLOBULIN % 8.6 % (2.9-4.9); ALPHA-1-GLOBULINS 0.46 GM/DL (0.17-0.41); ALPHA-2-GLOBULINS % 18.5 % (7.1-11.8); BETA-1-GLOBULINS 0.38 GM/DL (0.28-0.60); BETA-1-GLOBULINS % 7.1 % (4.7-7.2); BETA-2-GLOBULINS 0.45 GM/DL (0.19-0.55); BETA-2-GLOBULINS % 8.3 % (3.2-6.5); GAMMA GLOBULIN % 12.3 % (11.1-18.8); GAMMA GLOBULINS 0.66 GM/DL (0.65-1.58)
[2020-09-12] MEDS ORDERED: POTASSIUM CHLORIDE 10 MEQ SR TABLET PO ONE (12:00)
[2020-09-12] MEDS ORDERED: CHLOROTHIAZIDE 500 MG VIAL (J1205 PER 1) IV ONE (12:00)
[2020-09-12 13:10] VITALS: BP 135/62
[2020-09-12] MEDS ORDERED: SPIRONOLACTONE 25 MG TAB PO SCH (14:00)
--- NOTE | 2020-09-12 14:52 | IPN ---
PROGRESS NOTE DATE: 09/12/2020 SUBJECTIVE: Nicole is seen and examined this morning at the bedside. She has not yet had her right-sided thoracentesis. She is still requiring supplemental oxygen. All of her urine output is not being recorded because she has had several incontinent voids; however, her weights did not really downtrend either. Her renal function is stable and I am increasing her diuretics today. The patient complains of some cramping in her legs and her potassium is noted to be low. OBJECTIVE: VITAL SIGNS: Temperature 97.9, pulse 59, respiratory rate 18, blood pressure 135/62, saturating 94% on 2 liters nasal cannula. INTAKE AND OUTPUT: Intake yesterday was 1.3 liters. Urine output yesterday was not fully recorded because the patient had three incontinent voids. Weight on the bed scale today is 62.4 kg. GENERAL: The patient is seen awake, alert, sitting in bed, oriented, conversational, in no apparent distress. Elderly female. HEENT: Extraocular muscles are intact. Tongue is moist. Nasal cannula is in place. NECK: Supple. Jugular veins are mildly elevated. HEART: Sounds regular, S1, S2. There is absolutely no peripheral edema. There is absolutely no dependent edema. ABDOMEN: Soft and I can appreciate a full bladder and the patient tells me she needs to urinate. LUNGS: Show diminished breath sounds still on both bases, but more dull on the right. She is on nasal cannula. There is no accessory muscle use. There is no tachypnea. EXTREMITIES: Negative for clubbing, cyanosis, or edema. NEUROLOGIC: She is awake, alert, and oriented x3, interactive, conversational, and no focal deficits. LABORATORY DATA: Today show sodium 136, potassium 3.5, bicarbonate 30, BUN 40, creatinine 1.7. Hemoglobin 10.8, platelets 416,000. IMAGING DATA: Chest x-ray this morning shows moderate bilateral pleural effusions. INPATIENT MEDICATIONS: She continues on Lasix drip at 10 mg/hr. I also ordered one dose of Diuril 500 mg IV x1. I also ordered potassium 40 mEq p.o. x1 and Spironolactone 25 mg p.o. daily. PROBLEMS: 1. Decompensated diastolic congestive heart failure with bilateral [id number] pleural effusions. The patient is on 1.8 liter fluid restriction. Her urine output is not being fully quantified because she is having incontinent voids; however, her daily weights are also not downtrending. I am going to increase her diuretic regimen. Continue Lasix at 10 mg/hr and I also added Spironolactone 25 mg daily along with a one time dose of Diuril 500 mg IV x1. She is pending right-sided thoracentesis as well. 2. Bilateral pleural effusions, recurrent. The patient has had multiple thoracenteses. She had a thoracentesis in June, July, early August, and then again on this admission on the left side with 1 liter removed and she is pending a right-sided thoracentesis. Continue aggressive diuresis with Lasix 10 mg/hour and she is also going to be given Diuril and Spironolactone today. 3. Iron deficiency anemia. She received a dose of Injectafer 750 mg x1 and she will get a second dose in the outpatient setting. She is on oral iron supplementation. 4. Chronic kidney disease (CKD) stage IIIB borderline stage IV. Baseline glomerular filtration rate (GFR) is about 30 mL/min and she is tolerating diuresis well. She has known longstanding proteinuria and I sent off the workup including BEN, ANCA, SPEP, UPEP, and free light chain ratio. Most of the results are still pending. She has a known atrophic right kidney and most of her function is coming from the left kidney and most likely she has underlying diabetic nephropathy given longstanding proteinuria. Will keep a close eye on renal function while she is being diuresed. 5. Hypokalemia. I started her on Spironolactone and I gave a dose of potassium 40 mEq x1 today as well. 6. Poorly controlled type 2 diabetes. She is no longer suitable for metformin and she understands the same. She also used to uses Aleve regularly as an outpatient and she knows not to do so going forward. 7. Hypomagnesemia. Continue magnesium supplementation. 8. Secondary hyperparathyroidism of renal origin. Continue vitamin D supplementation. 9. Breast cancer with bony metastasis. The patient has not yet set up with oncology. Her appointment has been delayed because of recurrent hospitalizations. 10. Hypertension. Blood pressure control is acceptable and will improve with further diuretic. We may need to cut down the amlodipine if her blood pressure becomes soft given that I did also add Spironolactone today.
[2020-09-12] MEDS: FUROSEMIDE injection 250 MG in D5W 225 ML IV SCH (15:17)
[2020-09-12] MEDS ORDERED: LIDOCAINE 1% MDV 20ML VIAL As Ordered ONE (15:31)
--- NOTE | 2020-09-12 16:19 | REP ---
INDICATION: POST RIGHT THORA, 2 VIEW COMPARISON: 09/12/2020 at 9:52 a.m. TECHNIQUE: PA and lateral. FINDINGS: Moderate bibasilar pleural effusions and lower lobe consolidations/atelectasis again noted. No pneumothorax. Mediastinum and cardiac silhouette are stable. Known skeletal metastases and healing right rib fractures. IMPRESSION: 1. Moderate pleural effusions and lower lobe consolidation/atelectasis. 2. No pneumothorax. <Electronically signed by Chuck Barraza > 09/12/20 2224
[2020-09-12 16:30] VITALS: BP 134/67
[2020-09-12 16:49] VITALS: BP 145/76
[2020-09-12 17:15] LABS: FREE KAPPA LIGHT CHAINS SERUM 107.9 mg/L (3.3-19.4); FREE LAMBDA LIGHT CHAINS SERUM 64.9 mg/L (5.7-26.3); KAPPA/LAMBDA RATIO SERUM 1.66 (0.26-1.65)
[2020-09-12 17:30] VITALS: BP 135/52
[2020-09-12 18:18] LABS: PH BODY FLUID 7.739 UNITS (NOT ESTABLISHED); SOURCE, BODY FLUID pH PLEURAL
[2020-09-12 18:24] LABS: APPEARANCE, BODY FLUID HAZY (CLEAR); PLEURAL FL COLOR PALE YELLOW (COLORLESS); SOURCE, BODY FLUID PLEURAL
[2020-09-12 18:59] LABS: AMYLASE, BODY FLUID 21 U/L (NOT ESTABLISHED); CHOLESTEROL, BODY FLUID 56 MG/DL (NOT ESTABLISHED); LDH, BODY FLUID 74 U/L (NOT ESTABLISHED); SOURCE, BODY FLUID ALBUMIN PLEURAL; SOURCE, BODY FLUID AMYLASE PLEURAL; SOURCE, BODY FLUID CHOL PLEURAL; SOURCE, BODY FLUID GLUCOSE PLEURAL; SOURCE, BODY FLUID LDH PLEURAL; SOURCE, BODY FLUID TOT PROTEIN PLEURAL; SOURCE, BODY FLUID TRIG PLEURAL; TOTAL PROTEIN, BODY FLUID 2.6 G/DL (NOT ESTABLISHED); TRIGLYCERIDE, BODY FLUID 14 MG/DL (NOT ESTABLISHED)
[2020-09-12 22:00] VITALS: BP 141/63
[2020-09-13] MEDS: LEVOTHYROXINE 75MCG TABLET (0.075MG) PO SCH (05:33)
[2020-09-13 06:00] VITALS: BP 150/74
[2020-09-13 06:42] LABS: HEMOGLOBIN 11.3 g/dl (12.0-15.5); MEAN CORPUSCULAR HEMOGLOBIN 28.6 pg (27.0-33.0); MEAN CORPUSCULAR HGB CONC 32.3 g/dl (32.0-36.5); MEAN CORPUSCULAR VOLUME 88.6 fl (80.0-96.0); PLATELET COUNT, AUTOMATED 490 10^3/uL (150-450); RED BLOOD COUNT 3.95 10^6/uL (4.00-5.40); WHITE BLOOD COUNT 9.4 10^3/uL (4.0-10.0)
[2020-09-13 07:29] LABS: CALCIUM LEVEL 8.8 MG/DL (8.8-10.2); CREATININE FOR GFR 1.93 MG/DL (0.55-1.30); GLOMERULAR FILTRATION RATE 27.2 (>39); POTASSIUM SERUM 4.3 MEQ/L (3.5-5.1)
[2020-09-13] MEDS: HumaLOG INSULIN (NovoLOG) PER UNIT SC SCH ×4 (07:30→20:16)
[2020-09-13] MEDS: ONDANSETRON 4MG/2ML VIAL IV PRN ×2 (09:06→17:27)
--- NOTE | 2020-09-13 09:19 | REP ---
INDICATION: right pleural effussion. COMPARISON: None. TECHNIQUE: The procedure was performed under the direct supervision of Dr. Dunaway. The risks and benefits of the procedure were explained to the patient and informed consent obtained. The right pleural effusion was localized using ultrasound guidance. The skin was prepped and draped in a sterile fashion. 1% lidocaine was used as a local anesthetic. An 8 [place] multi side hole catheter was inserted using trocar technique. 1000 cc of dane colored fluid was withdrawn with a sample sent to the lab for analysis. The patient tolerated the procedure well and there were no immediate complications. After the appropriate amount to monitor convalescence the patient was discharged from the department. FINDINGS: None IMPRESSION: Ultrasound-guided right thoracentesis yielding 1000 cc of dane colored fluid. <Electronically signed by Eulogio Alonzo > 09/12/20 170 <Electronically signed by Donald Dunaway > 09/13/20 [id number]
[2020-09-13] MEDS: ESCITALOPRAM OXALATE 5MG TABLET (LEXAPRO) PO SCH (09:27)
[2020-09-13] MEDS: MAGNESIUM GLUCONATE 500 MG TAB PO SCH (09:28)
[2020-09-13] MEDS: FERROUS SULFATE 325MG TAB PO SCH (09:28)
[2020-09-13] MEDS: guaiFENesin ER 600 MG TAB PO SCH ×2 (09:28→20:27)
[2020-09-13] MEDS: ASCORBIC ACID 500 MG TAB PO SCH (09:28)
[2020-09-13] MEDS: CARVedilol 3.125 MG TAB PO SCH ×2 (09:28→20:27)
[2020-09-13] MEDS: CALCIUM/VITAMIN D 500 MG TAB PO SCH (09:29)
[2020-09-13] MEDS: THIAMINE 100 MG TAB PO SCH (09:29)
--- NOTE | 2020-09-13 12:41 | IPN ---
PROGRESS NOTE DATE: 09/13/2020 SUBJECTIVE: Patient says that she was nauseous all night yesterday and refuses to take Percocet today. She denies any vomiting or abdominal pain. She still has pleuritic chest pain from the thoracentesis site. Patient underwent right-sided thoracentesis yesterday with no pneumothorax on the post procedure x-ray. Patient diuresed over 3 liters. Current weight is 54.4 kilos from her admission weight of 59.09 kilograms. Urine output was documented at 3.5 liters yesterday and 900 since midnight. Patient denies any dizziness or lightheadedness. PHYSICAL EXAMINATION: VITAL SIGNS: Temperature 97.3, pulse 66, respiratory rate 16, blood pressure 150/74, 95% on half liter nasal cannula. GENERAL: Awake, alert, oriented x3. HEENT: Dry mucous membranes. Cachectic appearing. No JVD. LUNGS: Diminished but clear to auscultation. No wheezes or rales. HEART: S1, S2, regular rate and rhythm. ABDOMEN: Soft, nontender, non-distended. Positive bowel sounds. EXTREMITIES: No cyanosis, clubbing or pitting edema. LABORATORY RONEN/IMAGING STUDIES: Have been reviewed. ASSESSMENT AND PLAN: This is a 70-year-old female with history of stage 4 breast cancer with bone metastasis, chronic kidney disease stage 3 to 4, diastolic heart failure, iron deficiency anemia, secondary hyperparathyroidism, hypothyroidism, diabetes, Vitamin D deficiency, who was admitted due to decompensated congestive heart failure and acute on chronic renal failure. IMPRESSION: 1. Acute decompensated diastolic heart failure with preserved systolic function. 2. Acute on chronic renal failure stage 3 to 4 due to CHF. 3. Stage 4 breast cancer with bony mets. 4. Urinary tract infection; completed three days of Levaquin. 5. Difficult to control type 2 diabetes. 6. Iron deficiency anemia. 7. Secondary hyperparathyroidism. 8. Bilateral pleural effusion secondary to heart failure. 9. Vitamin D deficiency. 10.Hypothyroidism. 11.Pleuritic chest pain due to pleural effusion; status post thoracentesis. PLAN: Patient is currently diuresing well on Lasix drip, managed by nephrology, defer to nephrology for transitioning to oral diuretics. Pain is controlled on Percocet, but complains of some nausea, therefore Zofran will be made available as needed. Patient is resumed on all her home medications. Blood pressure is controlled on chronic Norvasc and Coreg. Type 2 diabetes on insulin sliding scale with fingersticks for now. IVANAD
[2020-09-13 14:00] VITALS: BP 109/45
[2020-09-13] MEDS: ACETAMINOPHEN TAB 650MG DOSE (2X325MG) PO PRN (17:28)
--- NOTE | 2020-09-13 18:00 | IPN ---
NEPHROLOGY PROGRESS NOTE DATE: 09/13/2020 SUBJECTIVE: Ms. Sheikh is seen this morning on her bedside. She is feeling better and reports that her dyspnea has improved following thoracentesis. She had right pleural effusion drained yesterday while left pleural effusion was drained on September 10, 2020. She was given diuretics. However, this morning, diuretics have already been stopped. Patient denies any nausea or vomiting. She is known to have metastatic breast cancer with metastasis to bones. PHYSICAL EXAMINATION: Temperature 97.3 degrees Fahrenheit, heart rate 62 per minute, respiratory rate 16 per minute, blood pressure 148/74 mmHg, oxygen saturation 93%. She is still on 0.5 liters of oxygen this morning. HEAD: Atraumatic. NECK: Supple and without jugular venous distention (JVD) or thyroid enlargement. HEART SOUNDS: Regular. LUNGS: Slightly diminished breath sounds at bases. ABDOMEN: Soft and nontender. Bowel sounds are normal. EXTREMITIES: Without any cyanosis or clubbing. She has no peripheral edema. NEUROLOGIC: She is awake, alert and without a focal deficit. LABORATORY REVIEW: Today's labs show sodium 133, potassium 4.3, CO2 30, BUN 42, creatinine 1.93, glucose 193, calcium 8.8. WBC 9.4, hemoglobin 11.3, hematocrit 35.0. PROBLEMS: 1. Acute kidney injury superimposed on chronic kidney disease. Kidney function has been mostly unchanged with creatinine about 1.8-2.0. At this point, we will continue to monitor closely. She does not have any significant electrolyte problems. 2. Hypoxemia/bilateral pleural effusions. She had bilateral thoracentesis done. 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 I do not feel that she needs further diuresis at this point. Her Lasix drip and oral spironolactone have already been stopped. 3. Hypertension. Blood pressure seems to be well-controlled and she is on carvedilol and amlodipine at present. We will continue to monitor her closely. She is not suitable for angiotensin converting enzyme (PETRA) inhibitor or angiotensin receptor prasanna. 4. Metastatic breast cancer. Patient has not received any chemotherapy as yet. She has not even been seen by oncology as yet. 5. Urinary tract infection (UTI). She has completed Levaquin treatment for three days and denies any symptoms at present. 6. Bilateral pleural effusions. She had bilateral thoracentesis done. At present, I am going to watch her closely. Her diuretics have been stopped. I will reevaluate her in the next 24 hours for further need for diuretic.
[2020-09-13] MEDS: LEVEMIR (INSULIN DETEMIR) 1 UNITS/0.01ML SC SCH (20:25)
[2020-09-13 22:00] VITALS: BP 123/59
[2020-09-14] MEDS: ACETAMINOPHEN TAB 650MG DOSE (2X325MG) PO PRN ×3 (03:56→14:02)
[2020-09-14] MEDS: LEVOTHYROXINE 75MCG TABLET (0.075MG) PO SCH (05:17)
[2020-09-14 06:00] VITALS: BP 152/69
[2020-09-14 06:20] LABS: HEMATOCRIT 33.6 % (36.0-47.0); HEMOGLOBIN 11.1 g/dl (12.0-15.5); MEAN CORPUSCULAR HEMOGLOBIN 29.2 pg (27.0-33.0); MEAN CORPUSCULAR VOLUME 88.4 fl (80.0-96.0); PLATELET COUNT, AUTOMATED 482 10^3/uL (150-450); WHITE BLOOD COUNT 9.1 10^3/uL (4.0-10.0)
[2020-09-14 06:48] LABS: CALCIUM LEVEL 8.3 MG/DL (8.8-10.2); CREATININE FOR GFR 2.26 MG/DL (0.55-1.30); GLOMERULAR FILTRATION RATE 22.7 (>39); POTASSIUM SERUM 4.3 MEQ/L (3.5-5.1)
[2020-09-14] MEDS: guaiFENesin ER 600 MG TAB PO SCH ×2 (08:53→22:04)
[2020-09-14] MEDS: CALCIUM/VITAMIN D 500 MG TAB PO SCH (08:53)
[2020-09-14] MEDS: THIAMINE 100 MG TAB PO SCH (08:53)
[2020-09-14] MEDS: FERROUS SULFATE 325MG TAB PO SCH (08:54)
[2020-09-14] MEDS: ESCITALOPRAM OXALATE 5MG TABLET (LEXAPRO) PO SCH (08:54)
[2020-09-14] MEDS: CARVedilol 3.125 MG TAB PO SCH ×2 (08:54→22:05)
[2020-09-14] MEDS: MAGNESIUM GLUCONATE 500 MG TAB PO SCH (08:54)
[2020-09-14] MEDS: HumaLOG INSULIN (NovoLOG) PER UNIT SC SCH ×4 (08:55→20:53)
[2020-09-14] MEDS: ASCORBIC ACID 500 MG TAB PO SCH (08:55)
--- NOTE | 2020-09-14 09:00 | REP ---
INDICATION: chf check resolution sob COMPARISON: None. TECHNIQUE: PA and lateral. FINDINGS: The mediastinum and cardiac silhouette are within normal limits and stable. Small residual right pleural effusion and right basilar atelectasis appears improved. Small left pleural effusion and left basilar atelectasis along with left lower lobe consolidation appears relatively similar to prior examination. No new acute process. No pneumothorax. Skeletal structures intact. IMPRESSION: Small bilateral pleural effusions (left greater than right) along with passive atelectasis and left lower lobe consolidation. <Electronically signed by Chuck Barraza > 09/14/20 0824
[2020-09-14] MEDS ORDERED: METOCLOPRAMIDE INJ 10MG/2ML VIAL (J2765 PER 1) IV ONE (10:00)
[2020-09-14] MEDS ORDERED: FIORICET TAB PO ONE (10:00)
--- NOTE | 2020-09-14 12:16 | IPN ---
PROGRESS NOTE DATE: 09/14/2020 SUBJECTIVE: This morning the patient complains of headache diffusely without changes in vision, diplopia. She also complains of neck pain per nursing. She continues to have pleuritic chest pain at the thoracentesis site. The patient otherwise has had no shortness of breath, no palpitations or lightheadedness. She is currently off diuretics, had been on IV Lasix drip with GFR remaining at stage 4 renal failure, managed by nephrology. OBJECTIVE: PHYSICAL EXAM: Vital signs: Temperature 98, pulse 60, respiratory 20, blood pressure 162/69, 97% on 0.5 liters nasal cannula. General: The patient appears older than her stated age, no distress, no use respiratory accessory muscles, moist mucous membranes, appears slightly disheveled and cachectic with bitemporal wasting. HEENT: No JVD, thyromegaly or cervical lymphadenopathy. Lungs: Clear to auscultation, no wheezing or rales. Heart: S1, S2, sinus rhythm with episodes of sinus bradycardia, rate of 51-53. Abdomen: Soft, nontender and nondistended. Extremities: No cyanosis, clubbing or pitting edema. Input overnight was 1360, output of 1700, negative 340. From midnight she had 250 out. Current weight is 52.9 kilograms with admission weight of 62.4. ASSESSMENT AND PLAN: This is a 70-year-old female with stage IV breast cancer with bone metastasis, chronic kidney disease, stage 3-4, diastolic heart failure, iron deficiency anemia, secondary hyperparathyroidism, hypothyroidism, type 2 diabetes, vitamin D deficiency, admitted due to decompensated congestive heart failure with [id number] renal failure, stage 4. Active issues are as follows. 1. Headache most likely due to uncontrolled blood pressure. The patient has been given her morning medications, Norvasc 10 mg daily, Coreg 3.125 b.i.d. She will be given one dose of IV Reglan for more immediate relief and was given Fioricet. She has had no prior history of CVA in the past and may be given Maxalt if there is no improvement in two hours. 2. Decompensated congestive heart failure with diastolic dysfunction, preserved systolic function. The patient is currently euvolemic. She has been at negative balance with current weight improved to 52.9 from peak weight of 62.4. Creatinine remains stable but still at stage 4 chronic kidney disease. We are renal redosing all her medications and monitoring for electrolyte abnormalities or metabolic acidosis. 3. Stage IV breast CA with bony metastasis. Outpatient followup with her medical oncologist. The patient's functional status has diminished significantly since her hospital admission and will most likely need acute rehabilitation. 4. Urinary tract infection present on hospital admission. The patient has completed three days of Levaquin, no new complaints of dysuria, urgency, frequency, fever or chills. 5. Type 2 diabetes on a sliding scale. 6. Bilateral pleural effusion secondary to heart failure, status post thoracentesis bilaterally, doing well currently and euvolemic with no recurrence. Thoracic surgeon, Dr. Taylor, recommended thoracentesis and medical management for heart failure. He did not recommend any pigtail catheter this admission. 7. Hypothyroidism on chronic Synthroid.
--- NOTE | 2020-09-14 13:47 | IPN ---
NEPHROLOGY PROGRESS NOTE DATE: 09/14/2020 SUBJECTIVE: Ms. Sheikh is seen this morning on her bedside. She is feeling better today and her nausea has improved. She denies any dyspnea or chest pain. She had bilateral thoracentesis done during last week and her volume status has improved with the diuresis. She has generalized aches and pains with history of metastatic breast cancer. PHYSICAL EXAMINATION: Temperature 98.0 degrees Fahrenheit, heart rate 60 per minute, respiratory rate 20 per minute, blood pressure 152/69 mmHg, oxygen saturation 97%. HEAD: Atraumatic. NECK: Supple and without jugular venous distention (JVD) or thyroid enlargement. LUNGS: Slightly diminished breath sounds at bases. ABDOMEN: Soft and nontender. Bowel sounds are normal. EXTREMITIES: Without any cyanosis or clubbing. NEUROLOGIC: She is at her baseline mentation without any focal deficit. LABORATORY DATA: Today's labs show WBC 9.1, hemoglobin 11.1, hematocrit 33.6, platelets 482. Sodium 136, potassium 4.3, CO2 30, BUN up to 55, creatinine 2.26, glucose 145, calcium 8.3. PROBLEMS: 1. Acute kidney injury superimposed on chronic kidney disease. Slight worsening of kidney function is noticed. She is not currently on any diuretic and renal profile will be checked again tomorrow. I will hold off on giving her intravenous (IV) fluid due to history of bilateral pleural effusions and generalized edema recently. Renal profile will be checked again tomorrow. 2. Hyponatremia. Sodium level has improved and diuretics remain on held at present. 3. Bilateral pleural effusions and generalized edema. Volume status has improved. She has been diuresed and also had bilateral thoracentesis done. At present, I will hold off on further diuresis in view of worsening kidney function.
[2020-09-14 14:00] VITALS: BP 121/59
[2020-09-14] MEDS: MAALOX 30 ML SUSP *UDC PO PRN (16:12)
[2020-09-14] MEDS: ONDANSETRON 4MG/2ML VIAL IV PRN (18:11)
[2020-09-14 22:00] VITALS: BP 137/62
[2020-09-14] MEDS: LEVEMIR (INSULIN DETEMIR) 1 UNITS/0.01ML SC SCH (22:04)
[2020-09-15] MEDS: ACETAMINOPHEN TAB 650MG DOSE (2X325MG) PO PRN (00:21)
[2020-09-15] MEDS: LEVOTHYROXINE 75MCG TABLET (0.075MG) PO SCH (05:30)
[2020-09-15 05:43] LABS: HEMATOCRIT 33.6 % (36.0-47.0); HEMOGLOBIN 10.8 g/dl (12.0-15.5); MEAN CORPUSCULAR HEMOGLOBIN 28.4 pg (27.0-33.0); MEAN CORPUSCULAR HGB CONC 32.1 g/dl (32.0-36.5); MEAN CORPUSCULAR VOLUME 88.4 fl (80.0-96.0); PLATELET COUNT, AUTOMATED 451 10^3/uL (150-450); WHITE BLOOD COUNT 8.7 10^3/uL (4.0-10.0)
[2020-09-15 06:00] VITALS: BP 140/63
[2020-09-15 06:12] LABS: CALCIUM LEVEL 8.9 MG/DL (8.8-10.2); CREATININE FOR GFR 2.11 MG/DL (0.55-1.30); GLOMERULAR FILTRATION RATE 24.6 (>39); POTASSIUM SERUM 4.3 MEQ/L (3.5-5.1)
[2020-09-15] MEDS ORDERED: PROMETHAZINE INJ 25 MG/ML VIAL (J2550) IV PRN (07:35)
[2020-09-15] MEDS ORDERED: BISACODYL 10 MG SUPP PR PRN (07:40)
[2020-09-15] MEDS ORDERED: BISACODYL 5 MG TAB PO PRN (07:40)
[2020-09-15] MEDS ORDERED: FLEET ENEMA PR PRN (07:40)
[2020-09-15] MEDS ORDERED: FIORICET TAB PO PRN (07:50)
[2020-09-15] MEDS: HumaLOG INSULIN (NovoLOG) PER UNIT SC SCH ×4 (08:07→20:10)
[2020-09-15 08:08] VITALS: BP 127/57
[2020-09-15] MEDS: ASCORBIC ACID 500 MG TAB PO SCH (08:08)
[2020-09-15] MEDS: FERROUS SULFATE 325MG TAB PO SCH (08:08)
[2020-09-15] MEDS: THIAMINE 100 MG TAB PO SCH (08:08)
[2020-09-15] MEDS: CARVedilol 3.125 MG TAB PO SCH (08:08)
[2020-09-15] MEDS: guaiFENesin ER 600 MG TAB PO SCH ×2 (08:08→20:09)
[2020-09-15] MEDS: CALCIUM/VITAMIN D 500 MG TAB PO SCH (08:08)
[2020-09-15] MEDS: MAGNESIUM GLUCONATE 500 MG TAB PO SCH (08:09)
[2020-09-15] MEDS: ESCITALOPRAM OXALATE 5MG TABLET (LEXAPRO) PO SCH (08:15)
[2020-09-15] MEDS ORDERED: METOCLOPRAMIDE INJ 10MG/2ML VIAL (J2765 PER 1) IV ONE (08:30)
--- NOTE | 2020-09-15 08:57 | IPN ---
PROGRESS NOTE DATE: 09/15/2020 SUBJECTIVE: The patient complains of diffuse headache this morning without fever, chills, changes in vision, nausea, or vomiting. She also complains of abdominal pain left lower quadrant and had one bowel movement yesterday. No shortness of breath, chest pain, pressure or tightness. Repeat chest x-ray yesterday shows a new left lower lobe consolidation currently on Avelox. Remains afebrile with no chills. She has occasional cough productive of white sputum. OBJECTIVE: VITAL SIGNS: Temperature 98.1, pulse 56, respiratory rate 18, blood pressure 140/63, 94% on room air. GENERAL: The patient is awake, alert, and oriented x3. Answering questions appropriately. LUNGS: Diminished with crackles at the left base. HEART: S1, S2 with episodes of sinus bradycardia. ABDOMEN: Soft, nontender, and nondistended with positive bowel sounds x4 quadrants. No CVA tenderness. EXTREMITIES: No cyanosis, clubbing, or pitting edema. LABORATORY DATA: CBC and metabolic panel have been reviewed. Notable for a decreased creatinine to 2.11 from previous creatinine of 2.26. ASSESSMENT: This is a 70-year-old female with history of stage IV breast cancer with bony metastasis, chronic kidney disease stage III to IV, diastolic heart failure, iron deficiency anemia secondary to hyperparathyroidism, hypothyroidism, type 2 diabetes, and vitamin D deficiency admitted due to decompensated diastolic congestive heart failure exacerbation in the setting of chronic kidney disease stage III to IV. Current issues: 1. Left lower lobe consolidation/pneumonia. The patient is afebrile with normal white count, but complains of cough productive of white sputum, which has x-ray showing left lower lobe consolidation. Due to her immunocompromised state, we will obtain sputum culture and treat with Avelox for seven days. 2. Acute on chronic kidney disease stage IV. Currently off diuretics. Creatinine is improving back to baseline. Appears to be euvolemic with very small pleural effusion on repeat chest x-ray. The patient had been net negative balance. Daily weights and fluid restriction is continued. Nephrology is following and managing fluid status. 3. Decompensated acute congestive heart failure exacerbation with preserved systolic function, diastolic dysfunction. The patient had admission weight of 62.4 kg and weight is 52 currently appears to be euvolemic managed by nephrology. Status post IV Lasix drip currently stable with no complaint of orthostasis. 4. Headache. The patient had been given IV Reglan yesterday. She had uncontrolled blood pressure yesterday, which improved with her blood pressure medications. This morning blood pressure is 137 to 140. Complains of diffuse headache with no meningeal signs, fever, chills, or neck rigidity with negative Kernig and Brudzinski sign. The patient will be given Maxalt 10 mg and IV Reglan. Fioricet as needed for headache throughout the day as needed. 5. Breast cancer stage IV with bony metastasis. Threshold patient is to follow-up with her medical oncologist and radiation oncologist once clinically stable. The patient currently has poor functional status and will need to recover fully prior to undergoing any chemotherapy. 6. Urinary tract infection present on hospital admission status post three days of Levaquin. Currently complains of abdominal pain. Will obtain CT abdomen and pelvis. 7. Constipation/questionable stercoral colitis currently on antibiotics. Will recheck CT abdomen and pelvis due to persistent abdominal pain. 8. Hypothyroidism on Synthroid.
[2020-09-15] MEDS ORDERED: RIZATRIPTAN BENZOATE 10 MG TAB PO ONE (09:00)
--- NOTE | 2020-09-15 09:06 | REP ---
INDICATION: abd pain COMPARISON: 09/08/2020 TECHNIQUE: Axial noncontrast images from the lung bases to the pubic symphysis with coronal and sagittal reformations. This CT examination was performed using the following dose reduction techniques: Automated exposure control, adjustment of mA and/or kv according to the patient's size, and use of iterative reconstruction technique. FINDINGS: Lung bases demonstrate moderate bilateral pleural effusions along with left lower lobe bronchiectasis and consolidation as well as bibasilar passive atelectasis. Liver, spleen, pancreas, gallbladder, and bilateral adrenal glands are normal/stable for noncontrast evaluation. Chronic atrophic right kidney and relatively normal appearance to the left kidney again noted. The small and large bowel is without obstruction or obvious acute inflammatory process. Small amount of ascites noted throughout the abdomen and pelvis.. Pelvis demonstrates normal bladder and age-appropriate uterus/adnexa. No free air. Adenopathy cannot definitively be excluded. Atherosclerotic changes to the aorta and vasculature noted without aortic aneurysm. Extensive known skeletal metastases throughout the visualized osseous structures essentially unchanged.. IMPRESSION: 1. Moderate bilateral pleural effusions with left lower lobe bronchiectasis and consolidation. Findings appear improved compared to prior abdominal CT. 2. Nonacute findings throughout the abdomen and pelvis similar to prior examination. <Electronically signed by Chuck Barraza > 09/15/20 0952
[2020-09-15] MEDS: MOXIFLOXACIN 400 MG TAB PO SCH (09:50)
[2020-09-15 13:07] VITALS: BP 129/58
--- NOTE | 2020-09-15 13:13 | IPNPDOC ---
Date Seen The patient was seen on 09/15/20. Progress Note per RN, Tele 47 sinus plan: discontinue coreg MAP 81, discontinue norvasc to allow for adequate circulating volume. asymptomatic. no need for atropine. VS, I&O, 24H, Fishbone Vital Signs/I&O Vital Signs Date Time Temp Pulse Resp B/P (MAP) Pulse Ox O2 Delivery O2 Flow Rate FiO2 09/15/20 13:07 47 129/58 (81) 09/15/20 08:08 58 09/15/20 06:00 98.1 94 09/14/20 22:00 Room Air 09/14/20 14:00 0.5 I&O- Last 24 Hours up to 6 AM 09/15/20 06:00 Intake Total 1860 ml Output Total 1250 ml Balance 610 ml Laboratory Data 24H LABS Laboratory Tests 2 09/14/20 16:24: Bedside Glucose (Misc Panel) 303H 09/14/20 20:48: Bedside Glucose (Misc Panel) 162H 09/15/20 05:21: Nucleated Red Blood Cells % (auto) 0.0, Anion Gap 7L, Glomerular Filtration Rate 24.6L, Calcium Level 8.9, Procalcitonin 0.14 09/15/20 12:13: Bedside Glucose (Misc Panel) 184H 09/15/20 12:43: Urine Color YELLOW, Urine Appearance HAZY, Urine pH 5.0, Urine Specific Lovely 1.011, Urine Protein 3+H, Urine Glucose (UA) 1+H, Urine Ketones NEGATIVE, Urine Blood 1+H, Urine Nitrite NEGATIVE, Urine Bilirubin NEGATIVE, Urine Urobilinogen 0.2, Urine Leukocyte Esterase 1+H, Urine WBC (Auto) 13H, Urine RBC (Auto) 20H, Urine Hyaline Casts (Auto) 0, Urine Bacteria (Auto) 1+H, Urine Squamous Epithelial Cells 2, Urine Mucus (Auto) SMALL, Urine Sperm (Auto) CBC/BMP Laboratory Tests 09/15/20 05:21 Microbiology Microbiology 09/15/20 Urine Culture, Received Pending 09/12/20 Fungal Smear, Received Pending 09/12/20 Fungal Culture, Received Pending 09/12/20 Gram Stain - Final, Complete 09/12/20 Body Fluid Culture - Final, Complete 09/12/20 Anaerobic Culture - Final, Complete 09/10/20 Acid Fast Stain, Received Pending 09/10/20 Mycobacterial Culture, Received Pending 09/10/20 Fungal Smear, Received Pending 09/10/20 Fungal Culture, Received Pending 09/10/20 Gram Stain - Final, Complete 09/10/20 Anaerobic Culture - Final, Complete 09/10/20 Body Fluid Culture - Final, Complete 09/08/20 Urine Culture - Final, Complete Escherichia Coli OLEKSANDR PONCE MD September 15, 2020 13:13
[2020-09-15 14:00] VITALS: BP 129/59
[2020-09-15 14:19] LABS: FREE THYROXINE INDEX 1.7 % (1.3-4.8); THYROID STIMULATING HORMONE 0.974 uIU/ML (0.358-3.740); THYROXINE (T4) 5.4 UG/DL (4.5-12.0)
--- NOTE | 2020-09-15 16:26 | IPN ---
NEPHROLOGY PROGRESS NOTE DATE: 09/15/2020 SUBJECTIVE: Ms. Sheikh is seen this morning on her bedside. She is feeling well and denies any new complaints. Her nausea has improved and she denies any dyspnea or chest pain. PHYSICAL EXAMINATION: Temperature 97 degrees Fahrenheit, heart rate 58 per minute, respiratory rate 14 per minute, blood pressure 129/58 mmHg, oxygen saturation 96% on room air. HEAD: Atraumatic. NECK: Supple and without jugular venous distention (JVD) or thyroid enlargement. HEART SOUNDS: Regular. LUNGS: Diminished breath sounds at left base. Right lung sounds clear. ABDOMEN: Soft and nontender. Bowel sounds normal. EXTREMITIES: Without any cyanosis or clubbing. NEUROLOGIC: She is awake, alert and at her baseline mentation. LABORATORY DATA: Today's labs show WBC 8.7, hemoglobin 10.8, hematocrit 33.6, platelets 451. Sodium 135, potassium 4.3, CO2 32, BUN 63, creatinine 2.11, glucose 112, calcium 8.9. PROBLEMS: 1. Acute kidney injury superimposed on chronic kidney disease. Slight improvement in kidney function is noticed. Patient is currently not on any diuretic and I do not feel that diuretic is indicated. She is being encouraged to continue with oral fluid intake. 2. Hyponatremia. Mild hyponatremia is stable and does not need any urgent intervention. 3. Anemia. Her anemia is stable also and does not need any urgent intervention. 4. History of bilateral pleural effusions. She had bilateral thoracentesis done and seems to have recurrence of left pleural effusion clinically. Patient had a CAT scan of the abdomen and pelvis done this morning, which did show again bilateral pleural effusions and left lower lobe bronchiectasis and left lower lobe consolidation. Most likely, her pleural effusions are malignant and related to metastatic cancer and not likely to respond to diuretics. 5. History of breast cancer with wide-spread metastatic disease. Patient will need to have an oncology consultation. At this point, she does not seem to have any oncology input so far.
[2020-09-15] MEDS: LEVEMIR (INSULIN DETEMIR) 1 UNITS/0.01ML SC SCH (20:10)
[2020-09-15 22:00] VITALS: BP 128/45
[2020-09-16] MEDS: ACETAMINOPHEN TAB 650MG DOSE (2X325MG) PO PRN (01:09)
[2020-09-16] MEDS: MOXIFLOXACIN 400 MG TAB PO SCH (05:47)
[2020-09-16] MEDS: LEVOTHYROXINE 75MCG TABLET (0.075MG) PO SCH (05:47)
[2020-09-16 05:53] LABS: HEMATOCRIT 31.2 % (36.0-47.0); HEMOGLOBIN 10.1 g/dl (12.0-15.5); MEAN CORPUSCULAR HEMOGLOBIN 28.9 pg (27.0-33.0); MEAN CORPUSCULAR HGB CONC 32.4 g/dl (32.0-36.5); MEAN CORPUSCULAR VOLUME 89.1 fl (80.0-96.0); PLATELET COUNT, AUTOMATED 436 10^3/uL (150-450); WHITE BLOOD COUNT 9.8 10^3/uL (4.0-10.0)
[2020-09-16 06:00] VITALS: BP 130/56
[2020-09-16 06:20] LABS: CALCIUM LEVEL 8.2 MG/DL (8.8-10.2); CREATININE FOR GFR 2.27 MG/DL (0.55-1.30); GLOMERULAR FILTRATION RATE 22.6 (>39); POTASSIUM SERUM 3.8 MEQ/L (3.5-5.1)
[2020-09-16] MEDS: guaiFENesin ER 600 MG TAB PO SCH ×2 (08:41→20:12)
[2020-09-16] MEDS: HumaLOG INSULIN (NovoLOG) PER UNIT SC SCH ×4 (08:41→20:06)
[2020-09-16] MEDS: THIAMINE 100 MG TAB PO SCH (08:41)
[2020-09-16] MEDS: CALCIUM/VITAMIN D 500 MG TAB PO SCH (08:41)
[2020-09-16] MEDS: ASCORBIC ACID 500 MG TAB PO SCH (08:42)
[2020-09-16] MEDS: ESCITALOPRAM OXALATE 5MG TABLET (LEXAPRO) PO SCH (08:42)
[2020-09-16] MEDS: MAGNESIUM GLUCONATE 500 MG TAB PO SCH (08:42)
[2020-09-16] MEDS: FERROUS SULFATE 325MG TAB PO SCH (08:42)
[2020-09-16] MEDS: PERCOCET 5MG/325MG TAB PO PRN ×3 (08:42→21:57)
[2020-09-16 09:14] LABS: MAGNESIUM LEVEL 2.9 MG/DL (1.8-2.4)
--- NOTE | 2020-09-16 11:32 | IPNPDOC ---
Text Note Date of Service The patient was seen on 09/16/20. NOTE Subjective: Patient is a 70-year-old female with a PMHx of Stage IV breast CA w/ bony metastasis, Diastolic CHF, DM2, Hypothyroidism, CKD3, PARISA, who presented to the emergency room with shortness of breath. Patient was found to have decompensated diastolic CHF and was imaged. Hospitalist service for further evaluation and treatment. Patient was seen and examined at the bedside. Patient was that her breathing is doing better. She denies any significant productive cough. Denies any chest pain or palpitations. Has not spent any nausea, vomiting, abdominal pain or diarrhea. Denies any urinary discomfort. She does report diffuse body aches. Objective: Vitals (See below) General: Lying in bed, no acute distress, comfortable, AAOx3 HEENT: NC, AT CVS: +S1S2 Lungs: Diminished lung sounds bilaterally Abdomen: Soft, ND, NT Extremities: - Edema, - Calf tenderness Imaging: CXR 09/08: Findings compatible with pulmonary vascular congestion/interstitial edema with relatively stable moderate pleural effusions and lower lobe opacities. Renal US 09/08: Chronic atrophic appearance to the right kidney. Normal appearance to the left kidney. Bilateral pleural effusions. CT abdomen / pelvis 09/08: 1. Moderate bilateral pleural effusions. 2. Bibasilar parenchymal infiltrates with air bronchograms may represent atelectasis. Clinical correlation to exclude infection suggested. 3. Extensive lytic and blastic metastases throughout the visualized skeletal structures with a dominant destructive focus in the posterior left iliac bone. 4. The gallbladder is incompletely distended. This is most likely related to incomplete fasting. Clinical correlation to exclude gallbladder pathology suggested. 5. Marked reduction in size of the right kidney may be related to congenital hypoplasia or prior infectious or vascular etiology. Hypertrophic changes left kidney. 6. There is bilateral adrenal hyperplasia. 7. There is increased feces throughout the colon consistent with constipation. Impacted feces in the rectum with possible stercoral colitis. 8. Anasarca. Chest CT 09/09: 1. Large bilateral pleural effusions with lower lobe atelectasis/partial collapse similar to prior examination. 2. Known diffuse osseous metastatic disease. Thoracentesis 09/10: Thoracentesis with removal of 1000 mL of yellow fluid. Thoracentesis 09/12: Ultrasound-guided right thoracentesis yielding 1000 cc of dane colored fluid. Chest biopsy 09/12: 1. Moderate pleural effusions and lower lobe consolidation/atelectasis. 2. No pneumothorax. CXR 09/14: Small bilateral pleural effusions (left greater than right) along with passive atelectasis and left lower lobe consolidation. CT abdomen / pelvis 09/15: 1. Moderate bilateral pleural effusions with left lower lobe bronchiectasis and consolidation. Findings appear improved compared to prior abdominal CT. 2. Nonacute findings throughout the abdomen and pelvis similar to prior examination. Assessment and plan: Shortness of breath - likely 2/2 multifactorial etiology PNA - likely 2/2 LLL pneumonia - Currently patient denies any significant productive cough or shortness of breath, however, did prior - No significant leukocytosis - Slight elevation of procalcitonin - Pleural fluid cultures negative - Imaging noted above - c/w Avelox (Day #2) - c/w Guaifenesin s/p Decompensated Diastolic CHF with bilateral pleural effusions - Currently patient reports that her breathing is doing better - Saturating well on room air - s/p thoracentesis and removal of fluid bilaterally - Diuretics on hold ELVIA on CKD3 - Creatinine still remains slightly elevated - Will avoid nephrotoxic medications - Nephrology on consultation s/p Headache - c/w Fioricet PRN HTN - Blood pressure remains well controlled currently - s/p Amlodipine / Carvedilol Breast cancer; Stage IV with bony metastasis - Patient is scheduled to follow-up with oncology as an outpatient - Patient's current functional status appears to be poor and will need to recover prior to initiating chemotherapy - c/w Percocet for diffuse body aches UTI - Urine culture 09/08: Escherichia coli - Urine culture 09/15: Negative - s/p Levaquin (3 day course) Constipation/questionable stercoral colitis currently on antibiotics - Imaging noted above - Continue with bowel regimen as ordered DM2 - c/w ISS and Levemir PARISA - c/w Ferrous sulfate Depression - c/w Escitalopram Hypothyroidism - c/w Levothyroxine DVT prophylaxis - Will start Heparin Disposition: - Awaiting clinical improvement Ricci ONEAL, I+O VSRicci, I+O Laboratory Tests 09/16/20 05:22 Vital Signs Date Time Temp Pulse Resp B/P (MAP) Pulse Ox O2 Delivery O2 Flow Rate FiO2 09/16/20 10:04 18 09/16/20 06:00 97.8 65 130/56 (80) 92 Room Air 09/14/20 14:00 0.5 I&O- Last 24 Hours up to 6 AM 09/16/20 06:00 Intake Total 1200 ml Output Total 1300 ml Balance -100 ml GARRY FARR MD Sep 16, 2020 11:32
--- NOTE | 2020-09-16 12:34 | IPN ---
PROGRESS NOTE DATE: 09/16/2020 SUBJECTIVE: Mrs. Sheikh is seen this morning on her bedside. She is resting comfortably at present. She has a history of metastatic breast cancer with mets to bones and bilateral pleural effusions. She already had bilateral thoracentesis with re-accumulation of fluid. I am concerned about the possibility of malignant effusions although she does have a history of congestive heart failure. When we tried to diurese her, her kidney function did get worse. She does not have any peripheral edema at present and has been off diuretics. Oral intake has been poor. OBJECTIVE: VITAL SIGNS: Temperature is 97.8 degrees Fahrenheit, heart rate is 65 per minute and respiratory rate is 18 per minute. Blood pressure 130/56 mmHg and oxygen saturation 92% on room air. HEAD AND NECK: Head is atraumatic. Neck is supple and without JVD or thyroid enlargement. HEART: Heart sounds were regular. LUNGS: Diminished breath sounds, more on the left than the right. ABDOMEN: Soft and nontender. Bowel sounds are normal. EXTREMITIES: Without any cyanosis or clubbing. NEUROLOGIC: She did not have any focal deficit. LABORATORY DATA: Today's labs showed a sodium of 135, potassium is 3.8, CO2 29, BUN 65 and creatinine 2.27. Calcium is 8.2 and magnesium 2.9. Hemoglobin is 10.1 and hematocrit 31.2. Urinalysis from yesterday showed 3+ protein, 13 WBCs and 20 RBCs. Urine culture did not show any significant growth. PROBLEMS: 1. Acute kidney injury superimposed on chronic kidney disease. Overall, kidney function has been stable with a creatinine of 2.1 to 2.2 for the last three days. I feel this is probably close to her baseline kidney function. 2. Congestive heart failure and bilateral pleural effusions. She had bilateral thoracentesis done and was also diuresed initially, however I do not feel that diuresis is a suitable option at present as her kidney function is likely to get worse. I do not feel that her pleural effusions are primary from congestive heart failure but more likely from metastatic disease. I will recommend to check her pleural effusion for malignant cells. Initially, there were no malignant cells identified. 3. Anemia, her anemia is stable at present and does not need any urgent intervention. 4. Metastatic breast cancer. Patient is waiting to be medically stable for oncology evaluation. Her long-term prognosis seems to be guarded in view of multiorgan problems.
[2020-09-16 14:00] VITALS: BP 127/46
--- NOTE | 2020-09-16 14:35 | REP ---
INDICATION: Rib pain COMPARISON: 09/14/2020 TECHNIQUE: PA and lateral. FINDINGS: Bilateral airspace disease including left lower lobe/retrocardiac consolidation, bibasilar atelectasis and small bilateral pleural effusions (left greater than right) remains stable. No pneumothorax. Skeletal metastases and old right-sided rib fractures have been confirmed by CT dated 09/09/2020. However, a new acute lateral right 7th rib fracture cannot be excluded. IMPRESSION: Pleuroparenchymal changes similar to prior examination. Possible acute right rib fracture. <Electronically signed by Chuck Barraza > 09/16/20 [id number]
--- NOTE | 2020-09-16 15:33 | REP ---
INDICATION: R rib fx? COMPARISON: None. TECHNIQUE: Four views of the left hemithorax. FINDINGS: Extensive skeletal metastatic disease noted throughout the osseous structures. Bibasilar atelectasis and pleural effusions are noted. Lateral 7th acute on chronic and 8th chronic rib fractures are identified. IMPRESSION: 1. Extensive skeletal metastatic disease. 2. Seventh and 8th rib fractures noted. <Electronically signed by Chuck Barraza > 09/16/20 [id number]
[2020-09-16] MEDS: HEPARIN SOD (PORCINE) 5000UNITS/ML 1ML VIAL/SYRINGE SQ SCH ×2 (15:39→20:13)
[2020-09-16] MEDS: LEVEMIR (INSULIN DETEMIR) 1 UNITS/0.01ML SC SCH (20:13)
[2020-09-16 22:00] VITALS: BP 148/60
[2020-09-17] MEDS: HEPARIN SOD (PORCINE) 5000UNITS/ML 1ML VIAL/SYRINGE SQ SCH (05:39)
[2020-09-17] MEDS: LEVOTHYROXINE 75MCG TABLET (0.075MG) PO SCH (05:40)
[2020-09-17] MEDS: MOXIFLOXACIN 400 MG TAB PO SCH (05:40)
[2020-09-17] MEDS: PERCOCET 5MG/325MG TAB PO PRN (05:40)
[2020-09-17 06:00] VITALS: BP 150/58
[2020-09-17 06:04] LABS: HEMATOCRIT 31.8 % (36.0-47.0); HEMOGLOBIN 10.3 g/dl (12.0-15.5); MEAN CORPUSCULAR HEMOGLOBIN 28.7 pg (27.0-33.0); MEAN CORPUSCULAR HGB CONC 32.4 g/dl (32.0-36.5); MEAN CORPUSCULAR VOLUME 88.6 fl (80.0-96.0); PLATELET COUNT, AUTOMATED 435 10^3/uL (150-450); RED BLOOD COUNT 3.59 10^6/uL (4.00-5.40); WHITE BLOOD COUNT 9.2 10^3/uL (4.0-10.0)
[2020-09-17 06:31] LABS: CALCIUM LEVEL 8.3 MG/DL (8.8-10.2); CREATININE FOR GFR 1.78 MG/DL (0.55-1.30); GLOMERULAR FILTRATION RATE 29.9 (>39); POTASSIUM SERUM 3.7 MEQ/L (3.5-5.1)
[2020-09-17] MEDS: HumaLOG INSULIN (NovoLOG) PER UNIT SC SCH ×2 (07:30→12:45)
[2020-09-17] MEDS ORDERED: MOXI400T11 PO (08:41)
[2020-09-17] MEDS ORDERED: LANTINJ4 SC (08:41)
[2020-09-17] MEDS ORDERED: INSUH10VL SC (08:41)
[2020-09-17] MEDS: MAGNESIUM GLUCONATE 500 MG TAB PO SCH (09:00)
[2020-09-17] MEDS: VITAMIN D 50,000 UNITS CAPSULE (ERGOCALCIFEROL 1.25MG) PO SCH (09:11)
[2020-09-17] MEDS: guaiFENesin ER 600 MG TAB PO SCH (09:11)
[2020-09-17] MEDS: CALCIUM/VITAMIN D 500 MG TAB PO SCH (09:11)
[2020-09-17] MEDS: ESCITALOPRAM OXALATE 5MG TABLET (LEXAPRO) PO SCH (09:11)
[2020-09-17] MEDS: THIAMINE 100 MG TAB PO SCH (09:11)
[2020-09-17] MEDS: ASCORBIC ACID 500 MG TAB PO SCH (09:11)
[2020-09-17] MEDS: FERROUS SULFATE 325MG TAB PO SCH (09:11)
[2020-09-17] MEDS ORDERED: ALCOPAD25 TOP (10:35)
[2020-09-17] MEDS ORDERED: INSU1MIS20 SC (10:35)
[2020-09-17] MEDS ORDERED: PEN1MIS21 SC (10:35)
[2020-09-17] MEDS ORDERED: GLIP5TAB8 PO (11:27)
[2020-09-17] MEDS: ACETAMINOPHEN TAB 650MG DOSE (2X325MG) PO PRN (12:45)
--- NOTE | 2020-09-17 13:00 | IPN ---
PROGRESS NOTE DATE: 09/17/2020 Mrs. Sheikh is seen this morning on her bedside. She is feeling about the same and denies any new complaints. She remains mostly in the bed. She denies any dyspnea or chest pain at present. She had another chest x-ray done yesterday, which did show bilateral small pleural effusions. She had right 7th and 8th rib fractures. She is noticed ot have multiple bony metastasis on her rib x-rays along with fracture of 7th and 8th ribs on right side. Patient denies any nausea or vomiting. PHYSICAL EXAMINATION: Temperature 98 degrees Fahrenheit, heart rate 60 per minute, respiratory rate 18 per minute, blood pressure 150/58 mmHg, and oxygen saturation 93% on room air. Head is atraumatic. Neck supple and without jugular venous distention (JVD) or thyroid enlargement. Heart sounds are regular and lungs with slightly diminished breath sounds at bases. Abdomen soft and nontender, and bowel sounds are normal Extremities without any cyanosis or clubbing. Neurologically she is at her baseline mentation. Today's labs show WBC count 9.2, hemoglobin 10.3, hematocrit 31.8, platelets 435. Sodium 135, potassium 3.7, CO2 of 31, BUN 60, and creatinine 1.78. Glucose 101 and calcium 8.3. PROBLEMS: 1. Acute kidney injury superimposed on chronic kidney disease. Kidney function improved compared to yesterday. She is currently not on any nephrotoxic medications and also not on diuretic. Clinically her volume status is well compensated. 2. Congestive heart failure and bilateral pleural effusions. Her volume status is very well compensated at present, and she has no peripheral edema or neck vein distention. I am concerned about possibility of malignancy causing her bilateral pleural effusions. In any event, she is currently off diuretics, and I will recommend to keep her off diuretic. 3. Anemia. Her anemia is stable at present, and she remains on oral iron supplement. 4. Diabetes. Her metformin was stopped due to acute renal failure, and she is currently on insulin. I have discussed with Dr. Martinez for possibly switching her to glipizide ER 2.5 mg daily at the time of discharge, and then she can followup with her primary physician as an outpatient. 5. Breast cancer with bony metastasis. Patient needs to see oncology and is scheduled for outpatient consultation on September 19. DISPOSITION: Patient is likely to be discharged today, and she will followup as an outpatient. I have recommended that she followup with our clinic as an outpatient for her kidney problems.
[2020-09-17] MEDS ORDERED: PERCOCET PO (13:21)
--- NOTE | 2020-09-17 13:22 | DS.PDOC ---
Discharge Summary General Date of Admission September 08, 2020 at 19:45 Date of Discharge 09/17/2020 Discharge Summary PROCEDURES PERFORMED DURING STAY: [None]. ADMITTING DIAGNOSES / DISCHARGE DIAGNOSES: Shortness of breath - likely 2/2 multifactorial etiology PNA - likely 2/2 LLL pneumonia s/p Decompensated Diastolic CHF with bilateral pleural effusions ELVIA on CKD3 s/p Headache HTN Breast cancer; Stage IV with bony metastasis Bony metastasis with rib fractures UTI Constipation/questionable stercoral colitis currently on antibiotics DM2 PARISA Depression Hypothyroidism DVT prophylaxis COMPLICATIONS/CHIEF COMPLAINT: Shortness of breath HISTORY OF PRESENT ILLNESS: Patient is a 70-year-old female with a PMHx of Stage IV breast CA w/ bony metastasis, Diastolic CHF, DM2, Hypothyroidism, CKD3, PARISA, who presented to the emergency room with shortness of breath. Patient was found to have decompensated diastolic CHF and was imaged. Hospitalist service for further evaluation and treatment. HOSPITAL COURSE: Shortness of breath - likely 2/2 multifactorial etiology PNA - likely 2/2 LLL pneumonia - Patient denies any shortness of breath or cough - No significant leukocytosis - Slight elevation of procalcitonin - Pleural fluid cultures negative - Imaging noted above - c/w Avelox (Day #3); will complete antibiotic course an outpatient - c/w Guaifenesin - Will have outpatient follow-up with primary care provider within the next 3 days s/p Decompensated Diastolic CHF with bilateral pleural effusions - Currently patient reports that her breathing is doing better - Saturating well on room air - s/p thoracentesis and removal of fluid bilaterally - Diuretics on hold - Will have outpatient follow-up with nephrology within the next 3 days ELVIA on CKD3 - Creatinine still remains slightly elevated - Will avoid nephrotoxic medications - Nephrology on consultation; will have outpatient follow-up within the next 3 days s/p Headache - c/w Fioricet PRN HTN - Blood pressure remains well controlled currently - s/p Amlodipine / Carvedilol Breast cancer; Stage IV with bony metastasis - Patient's current functional status appears to be poor and will need to recover prior to initiating chemotherapy - c/w Percocet for diffuse body aches - Patient is scheduled to follow-up with oncology as an outpatient; she is scheduled to see him this Tuesday Bony metastasis with rib fractures - Patient's pain is relatively well controlled - Imaging reviewed below - She has been advised to continue with incentive spirometry UTI - Urine culture 09/08: Escherichia coli - Urine culture 09/15: Negative - s/p Levaquin (3 day course) Constipation/questionable stercoral colitis currently on antibiotics - Imaging noted above - c/w bowel regimen as ordered DM2 - c/w ISS and Levemir while inpatient - Will provide Glipizide 2.5mg PO on discharge PARISA - c/w Ferrous sulfate Depression - c/w Escitalopram Hypothyroidism - c/w Levothyroxine DVT prophylaxis - c/w Heparin DISCHARGE MEDICATIONS: Please see below. ALLERGIES: Please see below. PHYSICAL EXAMINATION ON DISCHARGE: Vitals (See below) General: Patient is laying in bed, appears to be comfortable, not in any acute distress, is oriented to person, place and time HEENT: Normocephalic and atraumatic CVS: +S1S2 Lungs: Lung sounds are diminished bilaterally, however, there does not appear to be any wheezing or rhonchi Abdomen: Soft, nondistended and nontender Extremities: No evidence of lower tremors edema, - Calf tenderness LABORATORY DATA: Please see below. IMAGING: CXR 09/08: Findings compatible with pulmonary vascular congestion/interstitial edema with relatively stable moderate pleural effusions and lower lobe opacities. Renal US 09/08: Chronic atrophic appearance to the right kidney. Normal appearance to the left kidney. Bilateral pleural effusions. CT abdomen / pelvis 09/08: 1. Moderate bilateral pleural effusions. 2. Bibasilar parenchymal infiltrates with air bronchograms may represent atelectasis. Clinical correlation to exclude infection suggested. 3. Extensive lytic and blastic metastases throughout the visualized skeletal s tructures with a dominant destructive focus in the posterior left iliac bone. 4. The gallbladder is incompletely distended. This is most likely related to incomplete fasting. Clinical correlation to exclude gallbladder pathology suggested. 5. Marked reduction in size of the right kidney may be related to congenital hypoplasia or prior infectious or vascular etiology. Hypertrophic changes left kidney. 6. There is bilateral adrenal hyperplasia. 7. There is increased feces throughout the colon consistent with constipation. Impacted feces in the rectum with possible stercoral colitis. 8. Anasarca. Chest CT 09/09: 1. Large bilateral pleural effusions with lower lobe atelectasis/partial collapse similar to prior examination. 2. Known diffuse osseous metastatic disease. Thoracentesis 09/10: Thoracentesis with removal of 1000 mL of yellow fluid. Thoracentesis 09/12: Ultrasound-guided right thoracentesis yielding 1000 cc of dane colored fluid. Chest biopsy 09/12: 1. Moderate pleural effusions and lower lobe consolidation/atelectasis. 2. No pneumothorax. CXR 09/14: Small bilateral pleural effusions (left greater than right) along with passive atelectasis and left lower lobe consolidation. CT abdomen / pelvis 09/15: 1. Moderate bilateral pleural effusions with left lower lobe bronchiectasis and consolidation. Findings appear improved compared to prior abdominal CT. 2. Nonacute findings throughout the abdomen and pelvis similar to prior examination. CXR 09/16: Pleuroparenchymal changes similar to prior examination. Possible acute right rib fracture. R Rib XR 09/16: 1. Extensive skeletal metastatic disease. 2. Seventh and 8th rib fractures noted. ACTIVITY: [As tolerated]. DISCHARGE PLAN: Follow-up with primary care provider, nephrology and oncology within the next 3 days Remain compliant with treatment plan and medications Return to the ER if you experience any problems DISPOSITION: Home with services DISCHARGE CONDITION: [Stable]. TIME SPENT ON DISCHARGE: 35 minutes. Vital Signs/I&Os Vital Signs Date Time Temp Pulse Resp B/P (MAP) Pulse Ox O2 Delivery O2 Flow Rate FiO2 09/17/20 06:10 18 09/17/20 06:00 98.0 57 150/58 (88) 93 Room Air 09/14/20 14:00 0.5 I&O- Last 24 Hours up to 6 AM 09/17/20 06:00 Intake Total 1206 ml Output Total 950 ml Balance 256 ml Laboratory Data Labs 24H Laboratory Tests 2 09/16/20 16:20: Bedside Glucose (Misc Panel) 279H 09/16/20 20:02: Bedside Glucose (Misc Panel) 155H 09/17/20 05:24: Nucleated Red Blood Cells % (auto) 0.0, Anion Gap 4L, Glomerular Filtration Rate 29.9L, Calcium Level 8.3L 09/17/20 11:26: Bedside Glucose (Misc Panel) 192H CBC/BMP Laboratory Tests 09/17/20 05:24 FSBS Laboratory Tests Test 09/16/20 16:20 09/16/20 20:02 09/17/20 11:26 Range/Units Bedside Glucose (Misc Panel) 279 155 192 83-110 MG/DL Microbiology Microbiology 09/15/20 Urine Culture - Final, Complete 09/12/20 Fungal Smear, Received Pending 09/12/20 Fungal Culture, Received Pending 09/12/20 Gram Stain - Final, Complete 09/12/20 Body Fluid Culture - Final, Complete 09/12/20 Anaerobic Culture - Final, Complete 09/10/20 Acid Fast Stain, Received Pending 09/10/20 Mycobacterial Culture, Received Pending 09/10/20 Fungal Smear, Received Pending 09/10/20 Fungal Culture, Received Pending 09/10/20 Gram Stain - Final, Complete 09/10/20 Anaerobic Culture - Final, Complete 09/10/20 Body Fluid Culture - Final, Complete 09/08/20 Urine Culture - Final, Complete Escherichia Coli Discharge Medications Scheduled Amlodipine Besylate (Amlodipine Besylate) 10 Mg Tablet, 10 MG PO DAILY, (Reported) Ascorbic Acid (Vitamin C) 500 Mg Tablet, 500 MG PO DAILY, (Reported) Calcium Carbonate/Vitamin D3 (Calcium 600-Vit D3 400 Tablet) 1 Each Tablet, 1 TAB PO DAILY, (Reported) Cyanocobalamin (Vitamin B-12) (Vitamin B-12) 500 Mcg Tablet, 500 MCG PO DAILY, (Reported) Escitalopram Oxalate (Lexapro) 5 Mg Tablet, 5 MG PO DAILY, (Reported) Ferrous Sulfate (Ferrous Sulfate) 325 Mg Tablet, 325 MG PO DAILY, (Reported) Glipizide (Glipizide) 5 Mg Tablet, 2.5 MG PO DAILY Guaifenesin (Mucinex) 600 Mg Tab.er.12h, 600 MG PO BID, (Reported) Levothyroxine Sodium (Levothyroxine Sodium) 75 Mcg Tablet, 75 MCG PO QAM, (Reported) Moxifloxacin HCl (Moxifloxacin HCl) 400 Mg Tablet, 400 MG PO DAILY@06 Thiamine HCl (Thiamine HCl) 100 Mg Tablet, 100 MG PO DAILY, (Reported) Scheduled PRN Acetaminophen (Acetaminophen) 325 Mg Tablet, 650 MG PO Q6H PRN for PAIN / FEVER, (Reported) Docusate Sodium (Docusate Sodium) 100 Mg Capsule, 100 MG PO BID PRN for CONSTIPATION, (Reported) Ondansetron (Ondansetron Odt) 4 Mg Tab.rapdis, 4 MG PO BID PRN for NAUSEA OR VOMITING, (Reported) Oxycodone/Acetaminophen (Oxycodone-Acetaminophen 5-325) 1 Each Tablet, 1 TAB PO Q8HP PRN for MODERATE PAIN (PS 5-7) Polyethylene Glycol 3350 (Miralax) 119 Gm Powder, 17 GM PO DAILY PRN for CONSTIPATION, (Reported) dilute in 8 ounces of water or juice Sennosides (Senna Lax) 8.6 Mg Tablet, 2 TAB PO DAILY PRN for CONSTIPATION, (Reported) Simethicone (Gas-X) 125 Mg Capsule, 125 MG PO Q6H PRN for GAS PAIN, (Reported) Allergies Coded Allergies: Penicillins (Verified Allergy, Mild, rash, 07/07/20) GARRY FARR MD Sep 17, 2020 13:22
[2020-09-17 14:00] VITALS: BP 156/88
[2020-09-17 16:16] LABS: ANA (HEP2) Positive (.)
[2020-09-17 16:16] LABS: Lyme Disease IgG/IgM Antibodie <0.91 ISR (0.00-0.90); Lyme Disease IgM Ab Quantitati <0.80 index (0.00-0.79)
[2020-09-18] MEDS ORDERED: LETR2.5T2 PO (10:13)
[2020-09-18] MEDS ORDERED: IBRA125C PO (10:16)
[2020-09-18 19:39] LABS: BODY FLUID CULTURE Not indicated. (.); LEGIONELLA ANTIGEN URINE Negative (Negative); ORGANISM ID Not indicated. (.); SPECIMEN SOURCE Urine (.); URINE STREP PNEUMONIAE ANTIGEN Negative (Negative)
--- NOTE | 2020-09-19 23:27 | ECGEPIP ---
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
== END 2020-09-17 14:12 | disposition home health service (06) | DRG 291 ==
LOC: M ED 15:01 → M ED INP 19:45 → M MSPAV 23:15
PROVIDERS: ADMIT Internal Medicine; ATTEND Internal Medicine
PROC: 0W9B3ZX Drainage of Left Pleural Cavity, Percutaneous Approach, Diagnostic (ICD-10-PCS; principal; 2020-09-10 15:00)
PROC: 0W993ZX Drainage of Right Pleural Cavity, Percutaneous Approach, Diagnostic (ICD-10-PCS; 2020-09-12)
DX: I13.0 Hypertensive heart and chronic kidney disease with heart failure and stage 1 through stage 4 chronic kidney disease, or unspecified chronic kidney disease (principal); I50.33 Acute on chronic diastolic (congestive) heart failure; J18.9 Pneumonia, unspecified organism; N17.9 Acute kidney failure, unspecified; C79.51 Secondary malignant neoplasm of bone; E46 Unspecified protein-calorie malnutrition; J90 Pleural effusion, not elsewhere classified; N39.0 Urinary tract infection, site not specified; N25.81 Secondary hyperparathyroidism of renal origin; Z66 Do not resuscitate; N18.32 Chronic kidney disease, stage 3b; E11.22 Type 2 diabetes mellitus with diabetic chronic kidney disease; E03.9 Hypothyroidism, unspecified; C50.919 Malignant neoplasm of unspecified site of unspecified female breast; E83.42 Hypomagnesemia; D50.9 Iron deficiency anemia, unspecified; E11.65 Type 2 diabetes mellitus with hyperglycemia; E87.6 Hypokalemia; B96.20 Unspecified Escherichia coli [E. coli] as the cause of diseases classified elsewhere; R51.9 Headache, unspecified; D63.1 Anemia in chronic kidney disease; E55.9 Vitamin D deficiency, unspecified; Z90.49 Acquired absence of other specified parts of digestive tract; K59.00 Constipation, unspecified; F32.9 Major depressive disorder, single episode, unspecified; Z20.822 Contact with and (suspected) exposure to COVID-19; Z79.84 Long term (current) use of oral hypoglycemic drugs; Z79.899 Other long term (current) drug therapy; Z88.0 Allergy status to penicillin; Z79.1 Long term (current) use of non-steroidal anti-inflammatories (NSAID)

== ENCOUNTER 2020-09-23 12:08 | Inpatient (IN) | payer MEDICARE, OTHER ==
[~2020-09-23] VITALS: Ht 167.6 cm; Wt 55.3 kg
[~2020-09-23 12:08] MED LIST changes: +ALCOPAD25 TOP; +DOCU100C16 PO; +GLIP5TAB8 PO; +IBRA125C PO; +INSU1MIS20 SC; +INSUH10VL SC; +LANTINJ4 SC; +LETR2.5T2 PO; +LEXA5TAB13 PO; +METF-838 PO; +MOXI400T11 PO; +PEN1MIS21 SC; +PERCOCET PO
--- NOTE | 2020-09-23 13:13 | REP ---
INDICATION: fall. COMPARISON: Two-view chest 09/16/2020 TECHNIQUE: Portable FINDINGS: The technique utilized in obtaining the radiograph has magnified the cardiac silhouette and attenuated the interstitial markings. There are patchy bilateral lower lung field airspace opacities great greater than left with bilateral CP angle blunting. The lung field opacities have developed since the last exam while the left CP angle blunting has improved . There is no change in the right CP angle blunting. Heart is not enlarged. There are multiple rib lytic lesions with scapular and right clavicular lytic lesions. IMPRESSION: 1. Abnormal bilateral lower lung field findings as described above consistent with pneumonia and pleural effusions. 2. Evidence of skeletal metastatic disease. <Electronically signed by Kunal Solorzano > 09/23/20 [id number]
--- NOTE | 2020-09-23 13:18 | REP ---
INDICATION: fall. COMPARISON: None. TECHNIQUE: Three views of the right shoulder were performed. FINDINGS: The acromioclavicular and glenohumeral relationships are within normal limits. There is no acute fracture, dislocation, or subluxation. The patient has known right rib fractures from previous rib series of 09/16/2020 and also seen on prior chest CT. There are multiple lytic lesions seen throughout the shoulder girdle and multiple ribs. IMPRESSION: As above <Electronically signed by Kunal Solorzano > 09/23/20 [id number]
[2020-09-23 13:21] LABS: BASO # 0.1 10^3/uL (0.0-0.2); BASO % 0.6 % (0.0-1.0); EOS # 0.1 10^3/uL (0.0-0.5); EOS % 1.3 % (0.0-3.0); HEMATOCRIT 35.8 % (36.0-47.0); HEMOGLOBIN 11.3 g/dl (12.0-15.5); LYMPH # 0.7 10^3/uL (1.5-5.0); LYMPH % 7.1 % (24.0-44.0); MEAN CORPUSCULAR HEMOGLOBIN 28.3 pg (27.0-33.0); MEAN CORPUSCULAR HGB CONC 31.6 g/dl (32.0-36.5); MEAN CORPUSCULAR VOLUME 89.5 fl (80.0-96.0); MONO # 0.6 10^3/uL (0.0-0.8); MONO % 5.7 % (2.0-8.0); NEUTROPHILS # 8.7 10^3/uL (1.5-8.5); NEUTROPHILS % 84.2 % (36.0-66.0); PLATELET COUNT, AUTOMATED 443 10^3/uL (150-450); WHITE BLOOD COUNT 10.4 10^3/uL (4.0-10.0)
[2020-09-23 13:50] LABS: ALBUMIN 2.4 GM/DL (3.2-5.2); ALT/SGPT 22 U/L (12-78); BILIRUBIN,DIRECT < 0.1 MG/DL (0.0-0.2); BILIRUBIN,TOTAL 0.3 MG/DL (0.2-1.0); BLOOD UREA NITROGEN 56 MG/DL (7-18); CALCIUM LEVEL 8.5 MG/DL (8.8-10.2); CARBON DIOXIDE LEVEL 26 MEQ/L (21-32); CHLORIDE LEVEL 105 MEQ/L (98-107); CREATININE FOR GFR 1.73 MG/DL (0.55-1.30); GLOMERULAR FILTRATION RATE 30.9 (>39); GLUCOSE, FASTING 205 MG/DL (70-100); POTASSIUM SERUM 5.1 MEQ/L (3.5-5.1); SODIUM LEVEL 139 MEQ/L (136-145); TOTAL PROTEIN 6.2 GM/DL (6.4-8.2)
[2020-09-23] MEDS ORDERED: MORPHINE 4 MG/ML 1ML VIAL/SYRINGE (J2270) IV ONE (14:05)
[2020-09-23 14:22] LABS: CK-MB VALUE MASS 2.8 NG/ML (<3.6); CPK CREATINE PHOSPHOKINASE 74 U/L (26-192); MB/CK RELATIVE INDEX 3.78 (< OR =4); NT-PRO BNP 17852 PG/ML (<125); TROPONIN I 0.02 NG/ML (< 0.10)
--- NOTE | 2020-09-23 15:58 | REP ---
INDICATION: SOB COMPARISON: Multiple the latest 09/09/2020 TECHNIQUE: Standard helical technique without the administration of intravenous contrast FINDINGS: There are bilateral pleural effusions essentially unchanged from the prior exam. There is no pericardial effusion. There is no evidence of significant change seen involving the imaged upper abdomen. Bone window technique throughout the examination again shows advanced skeletal metastasis. Evaluation of the lung fuentes shows bilateral lower lung field curvilinear and asymmetric densities abutting the effusions. These may have increased slightly compared to the prior exam. IMPRESSION: 1. Bilateral pleural effusion. 2. Skeletal metastasis. 3. Bilateral dependent lower lung field densities likely subsegmental atelectatic changes. Small developing areas of pneumonia cannot be ruled out. <Electronically signed by Kunal Solorzano > 09/23/20 [id number]
--- NOTE | 2020-09-23 16:05 | REPVR ---
PROCEDURE INFORMATION: Exam: CT Head Without Contrast Exam date and time: 09/23/2020 3:40 PM Age: 70 years old Clinical indication: Injury or trauma; Fall; Blunt trauma (contusions or hematomas); Consciousness not specified TECHNIQUE: Imaging protocol: Computed tomography of the head without contrast. Radiation optimization: All CT scans at this facility use at least one of these dose optimization techniques: automated exposure control; mA and/or kV adjustment per patient size (includes targeted exams where dose is matched to clinical indication); or iterative reconstruction. COMPARISON: MRI-Brain without Contrast 07/09/2020 10:48 AM FINDINGS: Brain: There is no acute intracranial hemorrhage or mass effect. Mild to moderate diffuse volume loss is within the range of normal for patient age. There are small vessel ischemic changes within the periventricular and subcortical white matter, but the normal mackenzie/white matter delineation is maintained. Cerebral ventricles: No ventriculomegaly. Paranasal sinuses: Visualized sinuses are unremarkable. No fluid levels. Mastoid air cells: There is opacification of right mastoid air cells. Bones/joints: There are diffuse patchy areas of sclerosis throughout the bony calvarium, compatible with known osseous metastatic disease. Soft tissues: Unremarkable. IMPRESSION: No acute intracranial hemorrhage or calvarial fracture. Electronically signed by: Dilma Oconnell On 09/23/2020 16:05:11 PM
--- NOTE | 2020-09-23 16:08 | REPVR ---
PROCEDURE INFORMATION: Exam: CT Cervical Spine Without Contrast Exam date and time: 09/23/2020 3:40 PM Age: 70 years old Clinical indication: Injury or trauma; Fall; Blunt trauma TECHNIQUE: Imaging protocol: Computed tomography images of the cervical spine without contrast. Radiation optimization: All CT scans at this facility use at least one of these dose optimization techniques: automated exposure control; mA and/or kV adjustment per patient size (includes targeted exams where dose is matched to clinical indication); or iterative reconstruction. COMPARISON: No relevant prior studies available. FINDINGS: Bones/joints: There is straightening of the normal cervical lordosis. There is 2 mm of grade 1 retrolisthesis of C3 with respect to C4. There is 2 mm of grade 1 anterolisthesis of C4 with respect to C5. Normal vertebral body alignment is otherwise preserved. There are diffuse lytic and sclerotic bony metastases. Discs/Spinal canal/Neural foramina: There is severe intervertebral disc space loss at C3/4 and C5/6. There is multilevel facet hypertrophy. At C3/4, there is severe right and moderate to severe left neural foraminal narrowing. At C4/5, there is severe left neural foraminal narrowing. Lungs: Lung apices are normal. Pleural spaces: There are moderate bilateral pleural effusions. Soft tissues: Unremarkable. IMPRESSION: Diffuse lytic and sclerotic metastases. No acute fracture. Electronically signed by: Dilma Oconnell On 09/23/2020 16:08:13 PM
[2020-09-23] MEDS ORDERED: MEROPENEM INJ 1 GM in IV 1 EA IV ONE (16:45)
[2020-09-23] MEDS ORDERED: GLIP5TAB8 PO (17:03)
--- NOTE | 2020-09-23 17:38 | ECGEPIP ---
[facility] - ED Test Date: 2020-09-23 Pat Name: HUI OHARA Department: Room: - Gender: Female Gym Attendant: : 1950 Requested By: Walter Quesada Order Number: [id number] Reading MD: Christina Campoverde Measurements Intervals [place] Rate: 64 P: 68 OR: 184 QRS: 72 QRSD: 140 T: 23 QT: 468 QTc: 482 Interpretive Statements Normal sinus rhythm Right bundle branch block T wave abnormality, consider ischemia, more pronounced compared 09/15/20 increased rate 09/15/20 Electronically Signed on 09-23-2020 17:38:07 EDT by Christina Campoverde
[2020-09-23] MEDS ORDERED: MAALOX 30 ML SUSP *UDC PO PRN (18:00)
[2020-09-23] MEDS ORDERED: FUROSEMIDE 100MG/10ML VIAL (J1940) IV ONE (18:45)
[2020-09-23] MEDS ORDERED: SENNA 8.6 MG TAB (SENOKOT) PO PRN (19:20)
[2020-09-23] MEDS ORDERED: DEXTROSE 50% 50 ML SYRINGE IV PRN (20:05)
[2020-09-23] MEDS ORDERED: GLUCOSE 4GM CHEW TABLET PO PRN (20:05)
[2020-09-23] MEDS ORDERED: GLUCAGON INJ 1MG VIAL SC PRN (20:05)
--- NOTE | 2020-09-23 20:12 | HPEPDOC ---
[facility] Medical History & Physical Date of Admission Sep 23, 2020 Date of Service: Sep 23, 2020 Primary Care Physician: MARNI BETANCOURT DO Attending Physician: KAYLAH PINON MD History and Physical CHIEF COMPLAINT: Right flank pain after fall HISTORY OF PRESENT ILLNESS: Patient is a 70-year-old female with a significant medical history of breast cancer with bony metastases to the ribs with a history of rib fractures, diabetic neuropathy, hypertension and pah-tawtopo-ycttkdrte diabetes. Patient states that she fell at approximately 10:30 in the morning after she woke up from bed. She states that she fell onto her right side and right shoulder. She reports that she was unable to stand up and waited for approximately 30 minutes before her home health nurse arrived and helped her off the floor. She also reports that she had 3 episodes of bilious vomiting after the fall. She denies any blood in her vomitus. She states that she has had nothing by mouth today. The patient denies any head injuries or hitting her head during her falling episode. The patient also denies any loss of consciousness, although her fall was unwitnessed. In the emergency department, the patient had multiple scans done including chest CT, head CT, cervical spine CT, shoulder x-ray, and chest x-ray, which all did not report any acute fractures. The patient's chest CT didn't show evidence of bilateral pleural effusions with possible atelectasis and infiltrate could not be ruled out. However, the patient denies any recent fevers, chills, night sweats, upper respiratory symptoms, nausea, diarrhea, or constipation. The patient had been lower over some time, he was ordered, however, it was within normal range. The patient received meropenem 1 g while in the ED due to CT finding of possible infiltrate. Patient's vital signs in the ED showed systolic hypertension with systolic blood pressures in the 200s. Patient received to her amlodipine. Home dose of 10 mg. Patient also received a morphine sulfate injection of 4 mg once, after which the hospitalist team evaluated the patient. The patient still reported severe pain after morphine administration. PAST MEDICAL HISTORY: Type 2 diabetes mellitus. Iron deficiency anemia. Hypothyroidism. Breast cancer with bony metastases. History of recurrent pleural effusions. Diabetic nephropathy. Proteinuric chronic kidney disease stage III. Hypertension. Diastolic congestive heart failure PAST SURGICAL HISTORY: Laparoscopic intervention for endometriosis. Arthroscopic knee surgery. Appendectomy Tonsillectomy. Recurrent thoracentesis. History of bilateral pigtail placement in the lungs. Breast biopsy SOCIAL HISTORY: She lives at home alone in a one-story house that requires stairs to enter. She reports that she has a friend who checks up on her once a day. She also states that she has a home health nurse who comes to her house at approximately 11 AM every day. Patient denies any smoking history, alcohol use, and illicit drug use at this time. For any healthcare decision making, patient would like us to reach her son Chet at [phone]. FAMILY HISTORY: Father: of cardiovascular disease at an elderly age greater than 80 Mother: of cardiovascular disease in her 80s Siblings: Brother has CHF, diabetes mellitus type 2 Children: Has 2 sons ALLERGIES: Please see below. REVIEW OF SYSTEMS: CONSTITUTIONAL: Denies fevers, chills, night sweats, weight changes. HEENT:. Denies dry eyes, rhinorrhea, recent cough. CARDIOVASCULAR:. Denies heart palpitations or chest pain or pressure. RESPIRATORY:. Denies shortness of breath. GASTROINTESTINAL: Denies nausea, vomiting, diarrhea, constipation at this time, had vomiting earlier today. See HPI. GENITOURINARY:. Denies dysuria or increased frequency of urination. SKIN:. Denies any new skin lesions or rashes. NEUROLOGICAL: Denies any acute weakness, numbness or paresthesias. PSYCHIATRIC: Denies emotional lability at this time. ENDOCRINE:. Denies polydipsia, polyuria, polyphagia this time, reports increased thirst at this time due to not having anything to eat this morning. HEMATOLOGIC/LYMPHATIC:. Denies easy bleeding or bruising. HOME MEDICATIONS: Please see below. PHYSICAL EXAMINATION: VITAL SIGNS: Temperature 96.8, pulse 60, respiratory rate 18, blood pressure 2 18/96, pulse oximetry 99% on room air. GENERAL APPEARANCE: Patient is lying in the bed flat. She appears uncomfortable secondary to pain and is purposely limiting movement. HEENT:. Normocephalic, atraumatic, nares patent, very dry oral mucosa. CARDIOVASCULAR:. Regular rate and rhythm, distant heart sounds, S1-S2 auscultated. LUNGS: Bibasilar coarse breath sounds auscultated. ABDOMEN: Tender in right upper, right middle and right lower quadrants. Soft, nondistended. Bowel sounds present. MUSCULOSKELETAL: +4 out of 5 strength in bilateral lower extremities, +4 out of 5 strength in bilateral upper extremities. EXTREMITIES: No cyanosis, no edema appreciated, bilateral pedal and radial pulses intact. NEUROLOGICAL:. Cranial nerves III-12 intact., Alert and oriented 4 PSYCHIATRIC:. Affect full and open although The patient does appear to be in pain. LABORATORY DATA: See below. IMAGING: Chest CT 09/23/2020 1. Bilateral pleural effusion. 2. Skeletal metastasis. 3. Bilateral dependent lower lung field densities likely subsegmental atelectatic changes. Small developing areas of pneumonia cannot be ruled out. Head CT 09/23/2020 No acute intracranial hemorrhage or calvarial fracture. Cervical spine CT 09/23/2020. Diffuse lytic and sclerotic metastases. No acute fracture. Shoulder x-ray 09/23/2020. The acromioclavicular and glenohumeral relationships are within normal limits. There is no acute fracture, dislocation, or subluxation. The patient has known right rib fractures from previous rib series of 09/16/2020 and also seen on prior chest CT. There are multiple lytic lesions seen throughout the shoulder girdle and multiple ribs. Chest x-ray 09/23/2020 1. Abnormal bilateral lower lung field findings as described above consistent with pneumonia and pleural effusions. 2. Evidence of skeletal metastatic disease. MICROBIOLOGY: Please see below. ASSESSMENT: This is a 70-year-old female with a past medical history significant for stage IV breast cancer with bony metastases and a history of rib fractures, history of recurrent bilateral pleural effusions who presents today after a fall. The patient did not have any definite findings on imaging done in the ED, which included a head CT, chest CT, cervical spine CT, chest x-ray and shoulder x-ray. #Fall secondary to possible syncope versus chronic balance instability secondary to diabetic neuropathy. Patient had an unwitnessed fall, therefore, we cannot rule out syncopal episode at this time. Patient will be on telemetry for the next 48 hours, to rule out any arrhythmias. Orthostatic blood pressures were ordered. Since CPK levels were negative in the ER, Rhabdomyolysis is very low on the differential at this time. Troponin was negative in the ER. However, due to EKG reading in the ER of increased T-wave abnormality, repeat troponin has been ordered, low clinical suspicion of TN at this time. #Dyspnea, multifactorial. Patient has a history of chronic bilateral pleural effusions that required pigtail catheters at her last hospitalization. Patient's effusions do not appear to be greater than her last hospitalization. In case patient's shortness of breath worsens, consider consulting Dr. Taylor. Patient has a history of diastolic congestive heart failure. Therefore, a one time Lasix dose of 60 mg IV has been administered. Patient's BNP level of 17,000, is at her baseline. Monitor daily I's and O's. Monitor daily weights. Patient's shallow breathing is likely due to pain from falling on her right- hand side, complicated by her history of rib fractures and bony metastases from stage IV breast cancer. Morphine every 4 hours, 2 mg has been ordered as needed. Continue home medication. Guaifenesin 600 mg daily. #CKD stage III. Patient had an appointment with Dr. Augustine later this week, she has never been seen at [facility] as of yet. Patient's creatinine level of 1.7 is her baseline. Only 1 dose of first night has been given due to patient's underlying CPD. #Hypertension Patient's home dose of amlodipine has been continued. Patient's systolic hypertension is likely secondary to pain. Patient has been prescribed morphine every 4 hours to tolerate pain. #Hypothyroidism. Continue home medication, levothyroxine. #Iron deficiency anemia. Deferring continuation of home medication of ferrous sulfate this time. Will follow-up with repeat hemoglobin to assess if patient's anemia is currently stable or if there is an underlying internal bleed. #Stage IV breast cancer with bony metastases Continue home medication. Letrozole 2.5 mg tab Continue home medication, calcium/vitamin D. Continue home medication. Vitamin C 500 mg Continue home medication. Vitamin B12 500 g. #Type 2 diabetes mellitus Hold home medication glipizide. Sliding scale insulin ordered. Hypoglycemic protocol in place #History of depression. Continue home medication Escitalopram 5 mg daily. #Bowel regimen. Continue home medication. Senna 2 tabs daily when necessary Mylanta 30 mL daily when necessary ordered for dyspepsia. Milk of magnesia 30 mL daily when necessary ordered. DVT prophylaxis: Teds and sequentials Vital Signs Vital Signs Date Time Temp Pulse Resp B/P (MAP) Pulse Ox O2 Delivery O2 Flow Rate FiO2 6/8/21 17:30 165/86 (112) 09/23/20 17:23 59 20 98 09/23/20 12:24 96.8 Room Air Laboratory Data Labs 24H Laboratory Tests 2 09/23/20 12:51: Immature Granulocyte % (Auto) 1.1, Neutrophils (%) (Auto) 84.2H, Lymphocytes (%) (Auto) 7.1L, Monocytes (%) (Auto) 5.7, Eosinophils (%) (Auto) 1.3, Basophils (%) (Auto) 0.6, Neutrophils # (Auto) 8.7H, Lymphocytes # (Auto) 0.7L, Monocytes # (Auto) 0.6, Eosinophils # (Auto) 0.1, Basophils # (Auto) 0.1, Nucleated Red Blood Cells % (auto) 0.0, Anion Gap 8, Glomerular Filtration Rate 30.9L, Calcium Level 8.5L, Total Bilirubin 0.3, Direct Bilirubin < 0.1, Aspartate Amino Transf (AST/SGOT) 24, Alanine Aminotransferase (ALT/SGPT) 22, Alkaline Phosphatase 233H, Total Creatine Kinase 74, Creatine Kinase MB 2.8, Creatine Kinase MB Relative Index 3.78, Troponin I 0.02, WG-Enb-G-Type Natriuretic Peptide [id number], Total Protein 6.2L, Albumin 2.4L, Albumin/Globulin Ratio 0.6L CBC/BMP Laboratory Tests 09/23/20 12:51 Microbiology Microbiology 09/23/20 Blood Culture, Received Pending 09/23/20 Blood Culture, Received Pending 09/23/20 Respiratory Virus Panel (PCR) ([facility]) - Final, Complete Home Medications Scheduled Amlodipine Besylate (Amlodipine Besylate) 10 Mg Tablet, 10 MG PO DAILY Ascorbic Acid (Vitamin C) 500 Mg Tablet, 500 MG PO DAILY Calcium Carbonate/Vitamin D3 (Calcium 600-Vit D3 400 Tablet) 1 Each Tablet, 1 TAB PO DAILY Cyanocobalamin (Vitamin B-12) (Vitamin B-12) 500 Mcg Tablet, 500 MCG PO DAILY Docusate Sodium (Docusate Sodium) 100 Mg Capsule, 100 MG PO DAILY Escitalopram Oxalate (Lexapro) 5 Mg Tablet, 5 MG PO DAILY Ferrous Sulfate (Ferrous Sulfate) 325 Mg Tablet, 325 MG PO DAILY Glipizide (Glipizide) 5 Mg Tablet, 2.5 MG PO DAILY Guaifenesin (Mucinex) 600 Mg Tab.er.12h, 600 MG PO DAILY Letrozole (Letrozole) 2.5 Mg Tablet, 2.5 MG PO DAILY Levothyroxine Sodium (Levothyroxine Sodium) 75 Mcg Tablet, 75 MCG PO QAM Palbociclib (Ibrance) 125 Mg Capsule, 125 MG PO DAILY Take it for 21 days and 7 days off then repeat Thiamine HCl (Thiamine HCl) 100 Mg Tablet, 100 MG PO DAILY Scheduled PRN Acetaminophen (Acetaminophen) 325 Mg Tablet, 650 MG PO Q6H PRN for PAIN / FEVER Ondansetron (Ondansetron Odt) 4 Mg Tab.rapdis, 4 MG PO BID PRN for NAUSEA OR VOMITING Polyethylene Glycol 3350 (Miralax) 119 Gm Powder, 17 GM PO DAILY PRN for CONSTIPATION dilute in 8 ounces of water or juice Sennosides (Senna Lax) 8.6 Mg Tablet, 2 TAB PO DAILY PRN for CONSTIPATION Simethicone (Gas-X) 125 Mg Capsule, 125 MG PO Q6H PRN for GAS PAIN Allergies Coded Allergies: Penicillins (Verified Allergy, Mild, rash, 07/07/20) A-FIB/CHADSVASC A-FIB History Current/History of A-Fib/PAF?: No GME ATTESTATION GME ATTESTATION My faculty preceptor for this patient encounter was physically present during the encounter and was fully available. All aspects of the patient interview, examination, medical decision making process, and medical care plan development were reviewed and approved by the faculty preceptor. The faculty preceptor is aware and concurs with the plan as stated in the body of this note and will attest to such by his/her cosignature. ATTENDING NOTE Attending Attestation: Patient independently seen and examined. I have discussed in detail with the resident the findings and plan of treatment as documented by the resident. I agree with their findings and treatment plan. I will continue to follow the patient during this hospital stay. Reji Montemayor DO Sep 23, 2020 20:12 KAYLAH PINON MD Sep 24, 2020 06:39
[2020-09-23 20:20] VITALS: BP 188/80
[2020-09-23] MEDS: HumaLOG INSULIN (NovoLOG) PER UNIT SC SCH (20:40)
[2020-09-23] MEDS: MORPHINE 2 MG/ML 1ML VIAL (J2270) IV PRN (20:41)
[2020-09-23] MEDS ORDERED: SLF 3 ML SYR IV PRN (20:45)
[2020-09-23] MEDS: SLF 3 ML SYR IV SCH (21:47)
[2020-09-23] MEDS ORDERED: PERCOCET 5MG/325MG TAB PO PRN (21:55)
[2020-09-23 22:11] VITALS: BP 192/82
[2020-09-23] MEDS ORDERED: hydrALAZINE 20MG/ML 1ML VIAL (J0360 PER 20MG) IV STA (22:58)
[2020-09-23 23:03] VITALS: BP 170/82
[2020-09-23 23:04] VITALS: BP_SYST 162; BP_SYST 168; BP_DIAS 78; BP_DIAS 80
[2020-09-23] MEDS: ONDANSETRON 4MG/2ML VIAL IV PRN (23:12)
[2020-09-23 23:16] VITALS: BP 138/84
[2020-09-24] VITALS: BP 150/64
[2020-09-24] MEDS ORDERED: PERCOCET 5MG/325MG TAB PO PRN (03:20)
[2020-09-24 03:38] VITALS: BP 160/78
[2020-09-24] MEDS: LEVOTHYROXINE 75MCG TABLET (0.075MG) PO SCH (05:33)
[2020-09-24] MEDS: MORPHINE 2 MG/ML 1ML VIAL (J2270) IV PRN ×2 (05:34→13:14)
[2020-09-24] MEDS: SLF 3 ML SYR IV SCH ×3 (05:34→21:07)
[2020-09-24 06:20] LABS: BASO % 0.4 % (0.0-1.0); EOS % 0.4 % (0.0-3.0); HEMATOCRIT 34.8 % (36.0-47.0); HEMOGLOBIN 11.1 g/dl (12.0-15.5); LYMPH # 0.6 10^3/uL (1.5-5.0); LYMPH % 6.2 % (24.0-44.0); MEAN CORPUSCULAR HEMOGLOBIN 28.4 pg (27.0-33.0); MEAN CORPUSCULAR HGB CONC 31.9 g/dl (32.0-36.5); MONO # 0.7 10^3/uL (0.0-0.8); MONO % 7.1 % (2.0-8.0); NEUTROPHILS # 8.8 10^3/uL (1.5-8.5); NEUTROPHILS % 85.2 % (36.0-66.0); PLATELET COUNT, AUTOMATED 446 10^3/uL (150-450); RED BLOOD COUNT 3.91 10^6/uL (4.00-5.40); WHITE BLOOD COUNT 10.3 10^3/uL (4.0-10.0)
[2020-09-24 06:49] LABS: CALCIUM LEVEL 8.5 MG/DL (8.8-10.2); CREATININE FOR GFR 1.57 MG/DL (0.55-1.30); GLOMERULAR FILTRATION RATE 34.6 (>39); POTASSIUM SERUM 5.1 MEQ/L (3.5-5.1)
[2020-09-24 07:34] VITALS: BP 174/78
[2020-09-24] MEDS ORDERED: FERROUS SULFATE 325MG TAB PO SCH (09:00)
[2020-09-24] MEDS: HumaLOG INSULIN (NovoLOG) PER UNIT SC SCH ×4 (09:05→21:00)
[2020-09-24] MEDS: ESCITALOPRAM OXALATE 5MG TABLET (LEXAPRO) PO SCH (09:08)
[2020-09-24] MEDS: LETROZOLE 2.5 MG TAB PO SCH (09:08)
[2020-09-24] MEDS: DOCUSATE SODIUM 100MG CAPSULE PO SCH (09:09)
[2020-09-24] MEDS: THIAMINE 100 MG TAB PO SCH (09:09)
[2020-09-24] MEDS: guaiFENesin ER 600 MG TAB PO SCH (09:09)
[2020-09-24] MEDS: CYANOCOBALAMIN 500 MCG TAB PO SCH (09:09)
[2020-09-24] MEDS: CALCIUM/VITAMIN D 500 MG TAB PO SCH (09:09)
[2020-09-24] MEDS: ASCORBIC ACID 500 MG TAB PO SCH (09:09)
[2020-09-24] MEDS: ONDANSETRON 4MG/2ML VIAL IV PRN (09:27)
[2020-09-24 12:00] VITALS: BP 149/70
[2020-09-24 12:23] LABS: THYROID STIMULATING HORMONE 1.34 uIU/ML (0.358-3.740)
[2020-09-24 15:43] VITALS: BP 175/82
[2020-09-24] MEDS: ACETAMINOPHEN TAB 650MG DOSE (2X325MG) PO PRN (15:57)
--- NOTE | 2020-09-24 17:56 | IPNPDOC ---
Date Seen The patient was seen on 09/24/20. Progress Note SUBJECTIVE: This is hospital day 2. Pt reports having another episode of vomiting yesterday evening after eating. She states that she does not want to eat because she keeps vomiting. She is not feeling nauseated at this time. She denies diarrhea or constipation at this time. She reports feeling weak because she has not eaten in a while. She denies fevers or chills at this time. Nursing staff did not report any overnight events. Patient did require IV hydralazine 10 mg overnight due to hypertension. Patient's home medication, carvedilol is being held due to bradycardia. Patient is currently on amlodipine and continues to have IV morphine for pain control. Patient states that her pain is controlled as long as she does not move too much. OBJECTIVE PHYSICAL EXAMINATION: VITAL SIGNS: Please see below. GENERAL: No acute distress, alert and cooperative on exam HEENT: Normocephalic, atraumatic, lids and conjunctivae normal, nares patent, oropharyngeal mucosa slightly dry CARDIOVASCULAR: Regular rate and rhythm, no murmurs, rubs or gallops. RESPIRATORY: Clear to auscultation bilaterally. ABDOMINAL: Soft, tender in right upper, middle, and lower quadrants, nondistended EXTREMITIES: No edema, cyanosis of extremities, pedal pulses +2 bilaterally, radial pulses +2 bilaterally NEUROLOGICAL:, Good tone, range of motion intact PSYCHOLOGICAL:. Alert and oriented 4 LABORATORY DATA, IMAGING STUDIES, MICROBIOLOGY: Please see below. ASSESSMENT: This is a 70-year-old female with a past medical history significant for stage IV breast cancer with bony metastases and a history of rib fractures, history of recurrent bilateral pleural effusions who presents today after a fall. The patient did not have any definite findings on imaging done in the ED, which included a head CT, chest CT, cervical spine CT, chest x-ray and shoulder x-ray. #Fall secondary to possible syncope versus chronic balance instability secondary to diabetic neuropathy. Patient had an unwitnessed fall, therefore, we cannot rule out syncopal episode at this time. Patient will be on telemetry to rule out any arrhythmias. Orthostatic blood pressures were negative for orthostatic changes Since CPK levels were negative in the ER, Rhabdomyolysis is very low on the differential at this time. Troponin was negative in the ER. However, due to EKG reading in the ER of increased T-wave abnormality, repeat troponin was also unchanged. #Vomiting. Zofran was discontinued because the patient has borderline prolonged QTC and is also on an SSRI. Abdominal x-ray KUB was ordered, follow-up on results #Dyspnea, multifactorial. Patient has a history of chronic bilateral pleural effusions that required pigtail catheters at her last hospitalization. Patient's effusions do not appear to be greater than her last hospitalization. In case patient's shortness of breath worsens, consider consulting Dr. Taylor. Patient has a history of diastolic congestive heart failure. Therefore, a one time Lasix dose of 60 mg IV has been administered. Patient's BNP level of 17,000, is at her baseline. Monitor daily I's and O's. Monitor daily weights. Patient's shallow breathing is likely 2/2 pain from falling on her right-hand side, complicated by her history of rib fractures and bony metastases from stage IV breast cancer. IV Morphine every 6 hours, 2 mg has been ordered as needed. Continue home medication. Guaifenesin 600 mg daily. #CKD stage III. Patient had an appointment with Dr. Augustine later this week, she has never been seen at [facility] as of yet. Patient's creatinine level of 1.7 is at her baseline. Second dose of furosemide has been ordered, due to hypertension and patient's creatinine decreased from yesterday. Her first furosemide dose administration. However not scheduled her regular administration due to patient's underlying CKD. #Hypertension Patient's home dose of amlodipine has been continued. Furosemide second dose has been ordered Patient is bradycardic therefore, home medication, carvedilol is not being continued at this time. Patient's systolic hypertension is likely secondary to pain. Patient has been prescribed morphine every 4 hours to tolerate pain. #Hypothyroidism. Continue home medication, levothyroxine. #Iron deficiency anemia. Deferring continuation of home medication of ferrous sulfate at this time. Will follow-up with repeat hemoglobin to assess if patient's anemia is currently stable or if there is an underlying internal bleed. #Stage IV breast cancer with bony metastases Continue home medication. Letrozole 2.5 mg tab Continue home medication, calcium/vitamin D. Continue home medication. Vitamin C 500 mg Continue home medication. Vitamin B12 500 g. #Type 2 diabetes mellitus Hold home medication glipizide. Sliding scale insulin ordered. Hypoglycemic protocol in place #History of depression. Continue home medication Escitalopram 5 mg daily. #Bowel regimen. Continue home medication. Senna 2 tabs daily when necessary Mylanta 30 mL daily when necessary ordered for dyspepsia. Milk of magnesia 30 mL daily when necessary ordered. DVT prophylaxis: Teds and sequentials, consider Lovenox subcutaneous tomorrow. GME ATTESTATION My faculty preceptor for this patient encounter was physically present during the encounter and was fully available. All aspects of the patient interview, examination, medical decision making process, and medical care plan development were reviewed and approved by the faculty preceptor. The faculty preceptor is aware and concurs with the plan as stated in the body of this note and will attest to such by his/her cosignature. ATTENDING NOTE Attending Attestation: Patient independently seen and examined. I have discussed in detail with the resident the findings and plan of treatment as documented by the resident. I agree with their findings and treatment plan. I will continue to follow the patient during this hospital stay. VS, I&O, 24H, [place] Vital Signs/I&O Vital Signs Date Time Temp Pulse Resp B/P (MAP) Pulse Ox O2 Delivery O2 Flow Rate FiO2 09/24/20 15:43 97.3 55 18 175/82 (113) 94 Room Air I&O- Last 24 Hours up to 6 AM 09/24/20 06:00 Intake Total 300 ml Output Total 1075 ml Balance -775 ml Laboratory Data 24H LABS Laboratory Tests 2 09/23/20 19:17: Troponin I 0.02 09/23/20 20:39: Bedside Glucose (Misc Panel) 211H 09/24/20 05:49: Immature Granulocyte % (Auto) 0.7, Neutrophils (%) (Auto) 85.2H, Lymphocytes (%) (Auto) 6.2L, Monocytes (%) (Auto) 7.1, Eosinophils (%) (Auto) 0.4, Basophils (%) (Auto) 0.4, Neutrophils # (Auto) 8.8H, Lymphocytes # (Auto) 0.6L, Monocytes # (Auto) 0.7, Eosinophils # (Auto) 0.0, Basophils # (Auto) 0.0, Nucleated Red Blood Cells % (auto) 0.0, Anion Gap 6L, Glomerular Filtration Rate 34.6L, Calci um Level 8.5L, Thyroid Stimulating Hormone (TSH) 1.340 09/24/20 12:22: Bedside Glucose (Misc Panel) 147H CBC/BMP Laboratory Tests 09/24/20 05:49 Microbiology Microbiology 09/23/20 Blood Culture - Preliminary, Resulted No growth after 24 hours . All specim... 09/23/20 Blood Culture - Preliminary, Resulted No growth after 24 hours . All specim... 09/23/20 Respiratory Virus Panel (PCR) ([facility]) - Final, Complete Reji Montemayor DO Sep 24, 2020 17:56 KAYLAH PINON MD Sep 25, 2020 09:53
--- NOTE | 2020-09-24 18:24 | REP ---
INDICATION: abdominal pain, vomiting. COMPARISON: Chest 09/23/2020. TECHNIQUE: Two frontal views abdomen and pelvis. FINDINGS: There is no evidence of bowel obstruction. Moderate fecal material scattered throughout the colon. There is a phlebolith in the left pelvis. Multiple diffuse sclerotic lesions throughout the skeletal structures are compatible with osseous metastases. Bibasilar infiltrates and effusions are noted. IMPRESSION: No evidence of obstruction. Moderate fecal material throughout the colon. <Electronically signed by Stephane Vargas > 09/24/20 2902
[2020-09-24 20:00] VITALS: BP_SYST 152; BP_SYST 160; BP_SYST 164; BP_DIAS 68; BP_DIAS 84; BP_DIAS 90
[2020-09-25] VITALS (7 sets, daily range): BP systolic 144–191; BP diastolic 58–84
[2020-09-25] MEDS: MORPHINE 2 MG/ML 1ML VIAL (J2270) IV PRN ×2 (02:52→07:50)
[2020-09-25] MEDS: ACETAMINOPHEN TAB 650MG DOSE (2X325MG) PO PRN (02:53)
[2020-09-25 05:36] LABS: BASO # 0.1 10^3/uL (0.0-0.2); BASO % 0.5 % (0.0-1.0); EOS # 0.1 10^3/uL (0.0-0.5); EOS % 0.9 % (0.0-3.0); HEMATOCRIT 33.6 % (36.0-47.0); HEMOGLOBIN 10.7 g/dl (12.0-15.5); LYMPH # 0.8 10^3/uL (1.5-5.0); LYMPH % 8.4 % (24.0-44.0); MEAN CORPUSCULAR HEMOGLOBIN 28.9 pg (27.0-33.0); MEAN CORPUSCULAR HGB CONC 31.8 g/dl (32.0-36.5); MEAN CORPUSCULAR VOLUME 90.8 fl (80.0-96.0); MONO # 0.8 10^3/uL (0.0-0.8); NEUTROPHILS % 81.8 % (36.0-66.0); PLATELET COUNT, AUTOMATED 435 10^3/uL (150-450); WHITE BLOOD COUNT 9.8 10^3/uL (4.0-10.0)
[2020-09-25] MEDS: SLF 3 ML SYR IV SCH ×3 (05:38→20:05)
[2020-09-25] MEDS: LEVOTHYROXINE 75MCG TABLET (0.075MG) PO SCH (05:38)
[2020-09-25 06:03] LABS: CALCIUM LEVEL 8.3 MG/DL (8.8-10.2); CREATININE FOR GFR 1.66 MG/DL (0.55-1.30); GLOMERULAR FILTRATION RATE 32.4 (>39); POTASSIUM SERUM 5.5 MEQ/L (3.5-5.1)
[2020-09-25] MEDS: ESCITALOPRAM OXALATE 5MG TABLET (LEXAPRO) PO SCH (07:47)
[2020-09-25] MEDS: ASCORBIC ACID 500 MG TAB PO SCH (07:47)
[2020-09-25] MEDS: DOCUSATE SODIUM 100MG CAPSULE PO SCH (07:47)
[2020-09-25] MEDS: CYANOCOBALAMIN 500 MCG TAB PO SCH (07:48)
[2020-09-25] MEDS: THIAMINE 100 MG TAB PO SCH (07:48)
[2020-09-25] MEDS: LETROZOLE 2.5 MG TAB PO SCH (07:48)
[2020-09-25] MEDS: CALCIUM/VITAMIN D 500 MG TAB PO SCH (07:48)
[2020-09-25] MEDS: guaiFENesin ER 600 MG TAB PO SCH (07:48)
[2020-09-25] MEDS: HumaLOG INSULIN (NovoLOG) PER UNIT SC SCH ×5 (07:49→20:05)
[2020-09-25] MEDS ORDERED: PILL CUTTER 1 EACH XX PRN (12:30)
--- NOTE | 2020-09-25 14:32 | IPNPDOC ---
Date Seen The patient was seen on 09/25/20. Progress Note SUBJECTIVE: This is hospital day 3. Pt reports having another episode of vomiting yesterday. She states that she does not want to eat because she keeps vomiting. She is not feeling nauseated at this time. She denies diarrhea or constipation at this time. She reports feeling weak because she has not eaten in a while. She denies fevers or chills at this time. Patient's home medication, carvedilol is being held due to bradycardia. Patient is currently on amlodipine and continues to have IV morphine for pain control. Patient states that her pain is controlled as long as she does not move too much. She did not have any events on telemetry, although she remains bradycardic. Patient reports that she was not taking the aromatase inhibitor at home. She states that she was about to receive it in the mail, but hadn't actually started administration. OBJECTIVE PHYSICAL EXAMINATION: VITAL SIGNS: Please see below. GENERAL: No acute distress, alert and cooperative on exam HEENT: Normocephalic, atraumatic, lids and conjunctivae normal, nares patent, oropharyngeal mucosa slightly dry CARDIOVASCULAR: Regular rate and rhythm, no murmurs, rubs or gallops. RESPIRATORY: Clear to auscultation bilaterally. ABDOMINAL: Soft, nontender, nondistended EXTREMITIES: No edema, cyanosis of extremities, pedal pulses +2 bilaterally, radial pulses +2 bilaterally NEUROLOGICAL:, Good tone, range of motion intact PSYCHOLOGICAL:. Alert and oriented 4 LABORATORY DATA, IMAGING STUDIES, MICROBIOLOGY: Please see below. ASSESSMENT: This is a 70-year-old female with a past medical history significant for stage IV breast cancer with bony metastases and a history of rib fractures, history of recurrent bilateral pleural effusions who presents today after a fall. The patient did not have any definite findings on imaging done in the ED, which included a head CT, chest CT, cervical spine CT, chest x-ray and shoulder x-ray. #Fall secondary to possible syncope versus chronic balance instability secondary to diabetic neuropathy. Patient had an unwitnessed fall, therefore, we cannot rule out syncopal episode at this time. Patient will be on telemetry to rule out any arrhythmias. Orthostatic blood pressures were negative for orthostatic changes Since CPK levels were negative in the ER, Rhabdomyolysis is very low on the differential at this time. Troponin was negative in the ER. However, due to EKG reading in the ER of increased T-wave abnormality, repeat troponin was also unchanged. #Vomiting. Zofran ordered at 2 mg q8hprn because the patient has borderline prolonged QTC and is also on an SSRI. Abdominal x-ray KUB showed no acute obstructive process. -likely secondary to aromatase-inhibitor medication for pt's cancer. #Dyspnea, multifactorial. Patient has a history of chronic bilateral pleural effusions that required pigtail catheters at her last hospitalization. Patient's effusions do not appear to be greater than her last hospitalization. In case patient's shortness of breath worsens, consider consulting Dr. Taylor. Patient has a history of diastolic congestive heart failure. Therefore, a one time Lasix dose of 60 mg IV has been administered. Patient's BNP level of 17,000, is at her baseline. Monitor daily I's and O's. Monitor daily weights. Patient's shallow breathing is likely 2/2 pain from falling on her right-hand side, complicated by her history of rib fractures and bony metastases from stage IV breast cancer. IV Morphine every 6 hours, 2 mg has been ordered as needed. Continue home medication. Guaifenesin 600 mg daily. #CKD stage III. Patient had an appointment with Dr. Augustine later this week, she has never been seen at [facility] as of yet. Patient's creatinine level of 1.66 is around her baseline. Second dose of furosemide has been ordered, due to hypertension and patient's creatinine decreased from yesterday. Her first furosemide dose administration. However not scheduled her regular administration due to patient's underlying CK D. #Hypertension Patient's home dose of amlodipine has been continued. Furosemide now scheduled 60 mg daily. Patient is bradycardic therefore, home medication, carvedilol is not being continued at this time. Patient's systolic hypertension is likely secondary to pain. Patient has been prescribed morphine every 4 hours to tolerate pain. #Hyperkalemia. Repeat BMP has been ordered for 1700. Consider Kayexalate administration. If potassium still borderline high. #Hypothyroidism. Continue home medication, levothyroxine. #Iron deficiency anemia. Pt is currently nauseated and vomits daily. -Continue holding home medication ferrous sulfate at this time. -Continue monitoring CBC daily to possibly do IV iron transfusion. #Stage IV breast cancer with bony metastases Continue home medication. Letrozole 2.5 mg tab Continue home medication, calcium/vitamin D. Continue home medication. Vitamin C 500 mg Continue home medication. Vitamin B12 500 g. #Type 2 diabetes mellitus Hold home medication glipizide. Sliding scale insulin ordered. Hypoglycemic protocol in place #History of depression. Continue home medication Escitalopram 5 mg daily. #Bowel regimen. Continue home medication. Senna 2 tabs daily when necessary Mylanta 30 mL daily when necessary ordered for dyspepsia. Milk of magnesia 30 mL daily when necessary ordered. DVT prophylaxis: Teds and sequentials. DISPOSITION: Consider discharge to ARU tomorrow. VS, I&O, 24H, Fishbone Vital Signs/I&O Vital Signs Date Time Temp Pulse Resp B/P (MAP) Pulse Ox O2 Delivery O2 Flow Rate FiO2 09/25/20 12:40 161/78 (105) 09/25/20 12:30 96.7 63 20 89 Room Air I&O- Last 24 Hours up to 6 AM 09/25/20 05:59 Intake Total 420 ml Output Total 900 ml Balance -480 ml Laboratory Data 24H LABS Laboratory Tests 2 09/24/20 17:47: Bedside Glucose (Misc Panel) 114H 09/24/20 21:05: Bedside Glucose (Misc Panel) 143H 09/25/20 05:04: Immature Granulocyte % (Auto) 0.4, Neutrophils (%) (Auto) 81.8H, Lymphocytes (%) (Auto) 8.4L, Monocytes (%) (Auto) 8.0, Eosinophils (%) (Auto) 0.9, Basophils (%) (Auto) 0.5, Neutrophils # (Auto) 8.0, Lymphocytes # (Auto) 0.8L, Monocytes # (Auto) 0.8, Eosinophils # (Auto) 0.1, Basophils # (Auto) 0.1, Nucleated Red Blood Cells % (auto) 0.0, Anion Gap 7L, Glomerular Filtration Rate 32.4L, Calc ium Level 8.3L, AX-[id number]-[id number]-Type Natriuretic Peptide [id number] 09/25/20 11:41: Bedside Glucose (Misc Panel) 163H CBC/BMP Laboratory Tests 09/25/20 05:04 Microbiology Microbiology 09/23/20 Blood Culture - Preliminary, Resulted No growth after 24 hours . All specim... 09/23/20 Blood Culture - Preliminary, Resulted No growth after 24 hours . All specim... 09/23/20 Respiratory Virus Panel (PCR) ([facility]) - Final, Complete GME ATTESTATION GME ATTESTATION My faculty preceptor for this patient encounter was physically present during the encounter and was fully available. All aspects of the patient interview, examination, medical decision making process, and medical care plan development were reviewed and approved by the faculty preceptor. The faculty preceptor is aware and concurs with the plan as stated in the body of this note and will attest to such by his/her cosignature. ATTENDING NOTE Attending Attestation: Patient independently seen and examined. I have discussed in detail with the resident the findings and plan of treatment as documented by the resident. I agree with their findings and treatment plan. I will continue to follow the patient during this hospital stay. Reji Montemayor DO Sep 25, 2020 14:32 KAYLAH PINON MD Sep 26, 2020 06:32
[2020-09-25] MEDS: PERCOCET 5MG/325MG TAB PO PRN ×2 (15:58→21:09)
[2020-09-25] MEDS: FUROSEMIDE 40MG/4ML VIAL (J1940) IV SCH (15:59)
[2020-09-25 17:33] LABS: CALCIUM LEVEL 8.4 MG/DL (8.8-10.2); CREATININE FOR GFR 1.62 MG/DL (0.55-1.30); GLOMERULAR FILTRATION RATE 33.3 (>39); POTASSIUM SERUM 5.3 MEQ/L (3.5-5.1)
[2020-09-26 04:00] VITALS: BP 150/64
[2020-09-26 05:00] LABS: HEMATOCRIT 33.4 % (36.0-47.0); HEMOGLOBIN 10.7 g/dl (12.0-15.5); MEAN CORPUSCULAR HEMOGLOBIN 29.2 pg (27.0-33.0); MEAN CORPUSCULAR VOLUME 91.3 fl (80.0-96.0); PLATELET COUNT, AUTOMATED 417 10^3/uL (150-450); RED BLOOD COUNT 3.66 10^6/uL (4.00-5.40); WHITE BLOOD COUNT 8.4 10^3/uL (4.0-10.0)
[2020-09-26] MEDS: LEVOTHYROXINE 75MCG TABLET (0.075MG) PO SCH (05:14)
[2020-09-26] MEDS: PERCOCET 5MG/325MG TAB PO PRN ×3 (05:15→22:02)
[2020-09-26] MEDS: SLF 3 ML SYR IV SCH ×3 (05:15→22:01)
[2020-09-26 05:21] LABS: CALCIUM LEVEL 8.1 MG/DL (8.8-10.2); CREATININE FOR GFR 1.8 MG/DL (0.55-1.30); GLOMERULAR FILTRATION RATE 29.5 (>39); MAGNESIUM LEVEL 2.7 MG/DL (1.8-2.4); POTASSIUM SERUM 4.8 MEQ/L (3.5-5.1)
[2020-09-26 08:00] VITALS: BP 159/69
[2020-09-26] MEDS: FUROSEMIDE 40MG/4ML VIAL (J1940) IV SCH ×2 (08:49→19:02)
[2020-09-26] MEDS: HumaLOG INSULIN (NovoLOG) PER UNIT SC SCH ×4 (08:49→21:00)
[2020-09-26] MEDS: DOCUSATE SODIUM 100MG CAPSULE PO SCH (08:49)
[2020-09-26] MEDS: ASCORBIC ACID 500 MG TAB PO SCH (08:49)
[2020-09-26] MEDS: guaiFENesin ER 600 MG TAB PO SCH (08:49)
[2020-09-26] MEDS: THIAMINE 100 MG TAB PO SCH (08:49)
[2020-09-26] MEDS: ESCITALOPRAM OXALATE 5MG TABLET (LEXAPRO) PO SCH (08:50)
[2020-09-26] MEDS: CALCIUM/VITAMIN D 500 MG TAB PO SCH (08:50)
[2020-09-26] MEDS: LETROZOLE 2.5 MG TAB PO SCH (08:50)
[2020-09-26] MEDS: CYANOCOBALAMIN 500 MCG TAB PO SCH (08:50)
--- NOTE | 2020-09-26 10:52 | IPNPDOC ---
Date Seen The patient was seen on 09/26/20. Progress Note SUBJECTIVE: This is hospital day 4. Pt denies having any episodes of vomiting yesterday. She she reports feeling more hydrated today and feeling generally better. She denies feeling nauseated at this time. She denies any chest pain, pressure, headaches, visual blurriness or changes, nausea, vomiting, diarrhea, or constipation at this time. She denies feeling any swelling in her legs. She denies feeling any tingling in her extremities. Patient's pain medication was changed to 2 tablets, Percocet, per patient's request. She states that her pain is now well controlled, as long as she does not move. She did not have any events on telemetry, although she remains bradycardic. Patient reports that she was not taking the aromatase inhibitor at home. She states that she was about to receive it in the mail, but hadn't actually started administration. She has been receiving her aromatase inhibitor since admission here. Patient is now on 2 L nasal cannula, due to decrease in oxygen saturation overnight. The patient denies any increase of work of breathing or shortness of breath at this time. OBJECTIVE PHYSICAL EXAMINATION: VITAL SIGNS: Please see below. GENERAL: No acute distress, alert and cooperative on exam HEENT: Normocephalic, atraumatic, lids and conjunctivae normal, nares patent, oropharyngeal mucosa moist CARDIOVASCULAR: Regular rate and rhythm, no murmurs, rubs or gallops. RESPIRATORY: Clear to auscultation bilaterally. ABDOMINAL: Soft, nontender, nondistended EXTREMITIES: No edema, cyanosis of extremities, pedal pulses +2 bilaterally, radial pulses +2 bilaterally NEUROLOGICAL:, Good tone, range of motion intact PSYCHOLOGICAL:. Alert and oriented 4 LABORATORY DATA, IMAGING STUDIES, MICROBIOLOGY: Please see below. ASSESSMENT: This is a 70-year-old female with a past medical history significant for stage IV breast cancer with bony metastases and a history of rib fractures, history of recurrent bilateral pleural effusions who presents today after a fall. The patient did not have any definite findings on imaging done in the ED, which included a head CT, chest CT, cervical spine CT, chest x-ray and shoulder x-ray. #Fall secondary to possible syncope versus chronic balance instability secondary to diabetic neuropathy. Patient had an unwitnessed fall, therefore, we cannot rule out syncopal episode at this time. Patient will be on telemetry to rule out any arrhythmias. Orthostatic blood pressures were negative for orthostatic changes Since CPK levels were negative in the ER, Rhabdomyolysis is very low on the differential at this time. Troponin was negative in the ER. However, due to EKG reading in the ER of increased T-wave abnormality, repeat troponin was also unchanged. Due to patient's increased oxygen therapy need and continued right-sided pain in the context of a history of bony metastases from stage IV breast cancer, bilateral rib x-rays have been ordered. #Vomiting, resolved. Zofran ordered at 2 mg q8hprn because the patient has borderline prolonged QTC and is also on an SSRI. Abdominal x-ray KUB showed no acute obstructive process. -likely secondary to aromatase-inhibitor medication for pt's cancer. #Dyspnea, multifactorial. Patient has a history of chronic bilateral pleural effusions that required pigtail catheters at her last hospitalization. Patient's effusions do not appear to be greater than her last hospitalization. Due to patient's overnight oxygen saturations decrease, Dr. Taylor was consulted, due to bilateral effusions being present. Patient has a history of diastolic congestive heart failure. Therefore, a 3 doses of Lasix of 60 mg IV had been administered, which were discontinued due to pt's worsening renal function. Patient's BNP level of 17,000, is at her baseline. Monitor daily I's and O's. Monitor daily weights. Patient's shallow breathing is likely 2/2 pain from falling on her right-hand side, complicated by her history of rib fractures and bony metastases from stage IV breast cancer. Continue home medication. Guaifenesin 600 mg daily. #CKD stage III. Patient had an appointment with Dr. Augustine later this week, she has never been seen at [facility] as of yet. Patient's creatinine level of 1.8 is increased from her baseline of 1.7 Furosemide stopped due to worsening creatinine. #Hypertension Patient's home dose of amlodipine has been continued. -Furosemide was stopped due to creatinine worsening. -If patient's hypertension worsens, consider administration of hydralazine. Patient is bradycardic therefore, home medication, carvedilol is not being continued at this time. Patient's systolic hypertension is likely secondary to pain. Patient has been prescribed morphine every 4 hours to tolerate pain. #Hyperkalemia. Patient's potassium level is 4.8 today, without Kayexalate administration. Stopped Furosemide, due to pt's worsening renal function, likely does not need Kayexalate administration at this time. -Continue to monitor BMP daily, for hyperkalemia. #Hypothyroidism. Continue home medication, levothyroxine. #Iron deficiency anemia. Pt was vomiting daily, and GI symptoms have finally improved. Patient's hemoglobin, 10.7 today, is stable and the same as yesterday, 09/25/2020. -Continue holding home medication ferrous sulfate at this time. -Continue monitoring CBC daily to possibly do IV iron transfusion. #Stage IV breast cancer with bony metastases Continue home medication. Letrozole 2.5 mg tab Continue home medication, calcium/vitamin D. Continue home medication. Vitamin C 500 mg Continue home medication. Vitamin B12 500 g. #Type 2 diabetes mellitus Hold home medication glipizide. Sliding scale insulin ordered. Hypoglycemic protocol in place #History of depression. Continue home medication Escitalopram 5 mg daily. #Bowel regimen. Continue home medication. Senna 2 tabs daily when necessary Mylanta 30 mL daily when necessary ordered for dyspepsia. Milk of magnesia 30 mL daily when necessary ordered. DVT prophylaxis: Teds and sequentials. DISPOSITION: Consider discharge to ARU tomorrow. VS, I&O, 24H, [place] Vital Signs/I&O Vital Signs Date Time Temp Pulse Resp B/P (MAP) Pulse Ox O2 Delivery O2 Flow Rate FiO2 09/26/20 08:50 58 150/64 09/26/20 08:00 99.2 14 93 Nasal Cannula 2.0 I&O- Last 24 Hours up to 6 AM 09/26/20 05:59 Intake Total 600 ml Output Total 800 ml Balance -200 ml Laboratory Data 24H LABS Laboratory Tests 2 09/25/20 11:41: Bedside Glucose (Misc Panel) 163H 09/25/20 16:56: Anion Gap 6L, Glomerular Filtration Rate 33.3L, Calcium Level 8.4L 09/25/20 17:43: Bedside Glucose (Misc Panel) 171H 09/25/20 20:03: Bedside Glucose (Misc Panel) 184H 09/26/20 04:50: Nucleated Red Blood Cells % (auto) 0.0, Anion Gap 5L, Glomerular Filtration Rate 29.5L, Calcium Level 8.1L, Magnesium Level 2.7H CBC/BMP Laboratory Tests 09/25/20 16:56 09/26/20 04:50 Microbiology Microbiology 09/23/20 Blood Culture - Preliminary, Resulted No Growth after 48 hours. All Specime... 09/23/20 Blood Culture - Preliminary, Resulted No Growth after 48 hours. All Specime... 09/23/20 Respiratory Virus Panel (PCR) ([facility]) - Final, Complete GME ATTESTATION GME ATTESTATION My faculty preceptor for this patient encounter was physically present during the encounter and was fully available. All aspects of the patient interview, examination, medical decision making process, and medical care plan development were reviewed and approved by the faculty preceptor. The faculty preceptor is aware and concurs with the plan as stated in the body of this note and will attest to such by his/her cosignature. ATTENDING NOTE Attending Attestation: Patient independently seen and examined. I have discussed in detail with the resident the findings and plan of treatment as documented by the resident. I agree with their findings and treatment plan. I will continue to follow the patient during this hospital stay. Reji Montemayor DO Sep 26, 2020 10:52 KAYLAH PINON MD Sep 27, 2020 06:28
[2020-09-26 12:00] VITALS: BP 164/69
--- NOTE | 2020-09-26 13:10 | REP ---
INDICATION: fall with chest pain, worsened dyspnea. COMPARISON: CT chest 09/23/2020. TECHNIQUE: Four views bilateral wrist performed. Frontal view chest performed. FINDINGS: Multiple innumerable lytic lesions throughout all ribs bilaterally. There is a nondisplaced acute appearing fracture of the lateral right 6th rib. There is a healing fracture of the posterolateral aspect of right 7th rib. There is an acute appearing nondisplaced fracture of the posterior right 10th rib. There is nondisplaced fracture of the posterior right 11th rib. EKG leads overlie portions of the left ribs, limiting their evaluation. No definite acute left rib fracture is seen. Bilateral pleural effusions are again noted as seen on prior CT. There also bilateral patchy infiltrates inferiorly. There is no pneumothorax. Heart does not appear to be significantly enlarged. IMPRESSION: Multiple innumerable lytic lesions throughout all ribs bilaterally. Nondisplaced acute appearing fracture lateral right 6th rib and posterior right 10th rib. Healing fracture posterior right 7th rib. Nondisplaced fracture posterior right 11th rib. No pneumothorax. Bilateral pleural effusions. <Electronically signed by Stephane Vargas > 09/26/20 1514
--- NOTE | 2020-09-26 14:49 | CR ---
CONSULTATION DATE: 09/26/2020 Ms. Sheikh is seen at the request of the hospitalist service for bilateral pleural effusions. HISTORY OF PRESENT ILLNESS: Ms. Sheikh is a 70-year-old white female with known extensive metastatic breast carcinoma with extensive bony involvement and metastases. 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 She noted increased pain on the right side, which has continued until today. She does not particularly complain of shortness of breath, however. There has been no cough, no sputum production. She says she felt a little chilly in the emergency room when she first arrived there but essentially without fever, chills, or sweats. Her chest pain hurts when she moves and extends from her lateral chest up to her shoulder and down to her hip. In August of this year, she was again admitted to the hospital for bilateral pleural effusions secondary to heart failure. She underwent aggressive diuresis, which resulted in resolution of the pleural effusions after mechanical drainage with pigtail catheters. Shortly after she arrived in the emergency room she started to experience nausea and vomiting. Those have continued until today. She does not complain of abdominal pain, however, and she states that if she lies down, the nausea and vomiting do not affect her after eating. MEDICAL HISTORY: 1. Hypertension. 2. 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 3. Renovascular disease by ultrasound diagnosed in 2017. 4. Breast mass with no malignancy. 5. Diabetes. 6. Bilateral pleural effusions. 7. Pulmonary hypertension. 8. Hypothyroidism. SURGICAL HISTORY: 1. Arthroscopic knee surgery in 2014. 2. Laparoscopy for endometriosis in 1997. 3. Appendectomy in 1992. 4. tonsillectomy in 1962. HABITS: Denies smoking, alcohol intake, or illicit drugs. TRAVEL HISTORY: Not obtained. OCCUPATIONAL HISTORY: Not obtained. FAMILY HISTORY: Not pertinent to the acute situation. No other family history of breast cancer. HOME MEDICATIONS: - amlodipine 10 mg daily - ascorbic acid 500 mg daily - calcium carbonate with vitamin D 600/400 daily - vitamin B12 at 500 mcg daily - Lexapro 5 mg daily - ferrous sulfate 325 mg daily - glipizide 2.5 mg daily - letrozole 2.5 mg daily - Synthroid 75 mcg daily - Ibrance 125 mg daily - thiamine 100 mg daily REVIEW OF SYSTEMS: CONSTITUTIONAL: See history of present illness (HPI). Without significant fever, chills, or sweats. NOSE: Without epistaxis. RESPIRATORY: See HPI. CARDIAC: Has known diastolic failure. Her last echo showed a 40%-50% ejection fraction. GASTROINTESTINAL: See HPI. GENITOURINARY: Without hematuria or dysuria. ENDOCRINE: With diabetes and hypothyroidism. PSYCHIATRIC: Being treated for depression with Lexapro. NEUROLOGIC: Without paresthesias, paralyses, or seizures. PHYSICAL EXAMINATION: A well-developed 70-year-old woman in no acute distress but complaining of pain on her right flank and side. VITAL SIGNS: Temperature is 97.6, heart rate 58 in a sinus rhythm, respiratory rate of 20 without the use of accessory muscles, who is 91% saturated on 2 liters nasal cannula and whose blood pressure is 164/69. HEAD: Normocephalic. EYES: Pupils equal, round and reactive to light. Extraocular movements intact. Sclerae anicteric. NOSE: Without deformity. MOUTH: Shows her mucous membranes ot be pink and moist. Lips and commissure without lesions. There is no thrush. NECK: Supple. There is no jugular venous distention. No subcutaneous emphysema. Trachea is midline. There may be a supraclavicular node in the posterior left cervical triangle, which is rather firm. I cannot tell whether this is a firm node or whether it is vertebral prominence. LUNGS: Show decreased breath sounds on either side with E-to-A egophony on either side. Percussion note is dull on either side. Her upper hemithoraces are without wheezes, rhonchi, or rales. CARDIAC: Without murmurs, clicks, gallops, or rubs. I cannot feel her point of maximal impulse (PMI). S1 and S2 are normal. ABDOMEN: Soft, nontender. Bowel sounds are positive. There is no hepatomegaly. No costovertebral angle (CVA) tenderness. EXTREMITIES: Show no pretibial edema. No calf tenderness. No differential swelling of the upper extremities. SKIN: Warm, dry, and perfused without cyanosis or mottling, including that of the nailbeds and knees. NEUROLOGIC: Shows II-XII intact. Normal gross motor, gross sensation intact. Gait is not tested. PSYCHIATRIC: Shows her to be awake, alert, oriented times three with appropriate mood and affect and conversational. INVESTIGATIONS: Her white count today is 8.4 with a hemoglobin and hematocrit of 10.7 and 33.4, respectively, with a platelet count of 417. There is no differential. Her electrolytes today are normal with a BUN and creatinine of 44 and 1.80 with a glucose of 163 and a calcium 8.1 and magnesium of 2.7. Her chest CT done on 09/23/2020 shows bilateral pleural effusions, moderate in size. Most significantly, however, she has extensive metastatic bony disease to almost all of her ribs and thoracic vertebrae. Her ribs have what look to be both fresh and healing fractures, and I cannot really tell if these are traumatic or whether they are pathologic. I suspect they are pathologic. IMPRESSION: 1. Bilateral pleural effusions, nonmalignant but transudative. 2. Bilateral extensive rib breast metastases with pathologic fractures on the right side. 3. Stage IV breast cancer. 4. Hypothyroidism. 5. Diabetes. 6. Hypertension. 7. Renal insufficiency, acute on top of chronic. PLAN AND DISCUSSION: As noted before, I am rather hesitant to place bilateral PleurX catheters, as it will only nutritionally deplete her. Furthermore, with all the extensive rib involvement with metastases, it may very well cause undue unremitting pain. I will therefore ask x-ray to drain her on subsequent days next week, both right and left, with the thoracentesis. I would suggest that radiation therapy be contacted to see if they might be able to do localized radiation to the ribs for palliative control. I will also order an echocardiogram to see what her cardiac function is at this time.
[2020-09-26 20:00] VITALS: BP 137/63
[2020-09-27] MEDS: LEVOTHYROXINE 75MCG TABLET (0.075MG) PO SCH (06:02)
[2020-09-27] MEDS: SLF 3 ML SYR IV SCH ×3 (06:02→20:22)
[2020-09-27 06:11] LABS: BASO # 0.1 10^3/uL (0.0-0.2); BASO % 0.7 % (0.0-1.0); EOS # 0.2 10^3/uL (0.0-0.5); EOS % 2.2 % (0.0-3.0); HEMATOCRIT 34.6 % (36.0-47.0); HEMOGLOBIN 10.9 g/dl (12.0-15.5); LYMPH # 1.1 10^3/uL (1.5-5.0); LYMPH % 12.2 % (24.0-44.0); MEAN CORPUSCULAR HEMOGLOBIN 28.8 pg (27.0-33.0); MEAN CORPUSCULAR HGB CONC 31.5 g/dl (32.0-36.5); MEAN CORPUSCULAR VOLUME 91.3 fl (80.0-96.0); MONO # 0.9 10^3/uL (0.0-0.8); MONO % 10.4 % (2.0-8.0); NEUTROPHILS # 6.4 10^3/uL (1.5-8.5); NEUTROPHILS % 73.9 % (36.0-66.0); PLATELET COUNT, AUTOMATED 411 10^3/uL (150-450); RED BLOOD COUNT 3.79 10^6/uL (4.00-5.40); WHITE BLOOD COUNT 8.7 10^3/uL (4.0-10.0)
[2020-09-27 06:36] LABS: CALCIUM LEVEL 7.9 MG/DL (8.8-10.2); CREATININE FOR GFR 1.81 MG/DL (0.55-1.30); GLOMERULAR FILTRATION RATE 29.3 (>39); MAGNESIUM LEVEL 2.5 MG/DL (1.8-2.4); POTASSIUM SERUM 5.1 MEQ/L (3.5-5.1)
[2020-09-27 07:09] VITALS: BP 164/64
[2020-09-27] MEDS: HumaLOG INSULIN (NovoLOG) PER UNIT SC SCH ×4 (08:42→20:14)
[2020-09-27] MEDS: LETROZOLE 2.5 MG TAB PO SCH (08:42)
[2020-09-27] MEDS: FUROSEMIDE 40MG/4ML VIAL (J1940) IV SCH ×2 (08:42→17:26)
[2020-09-27] MEDS: DOCUSATE SODIUM 100MG CAPSULE PO SCH (08:43)
[2020-09-27] MEDS: guaiFENesin ER 600 MG TAB PO SCH (08:43)
[2020-09-27] MEDS: CALCIUM/VITAMIN D 500 MG TAB PO SCH (08:43)
[2020-09-27] MEDS: CYANOCOBALAMIN 500 MCG TAB PO SCH (08:43)
[2020-09-27] MEDS: ESCITALOPRAM OXALATE 5MG TABLET (LEXAPRO) PO SCH (08:43)
[2020-09-27] MEDS: THIAMINE 100 MG TAB PO SCH (08:43)
[2020-09-27] MEDS: ASCORBIC ACID 500 MG TAB PO SCH (08:45)
[2020-09-27] MEDS: PERCOCET 5MG/325MG TAB PO PRN ×2 (08:45→17:27)
[2020-09-27] MEDS ORDERED: FERROUS SULFATE 325MG TAB PO SCH (09:00)
[2020-09-27 11:20] VITALS: BP 102/59
[2020-09-27 15:22] VITALS: BP 167/76
--- NOTE | 2020-09-27 19:18 | IPNPDOC ---
Date Seen The patient was seen on 09/27/20. Progress Note SUBJECTIVE: This is hospital day 5. Pt denies having any episodes of vomiting yesterday. She reports feeling more hydrated today and feeling generally better. She denies feeling nauseated at this time. She denies any chest pain, pressure, headaches, visual blurriness or changes, nausea, vomiting, diarrhea, or constipation at this time. She denies feeling any swelling in her legs. She denies feeling any tingling in her extremities. Patient's right rib pain is tolerated with 2 tablets, Percocet, per patient's request, as long as she does not move. She did not have any events on telemetry, although she remains bradycardic. Patient reports that she was not taking the aromatase inhibitor at home. She states that she was about to receive it in the mail, but hadn't actually started administration. She has been receiving her aromatase inhibitor since admission here. Patient is no longer requiring 2L NC and is oxygenating well on room air. OBJECTIVE: PHYSICAL EXAMINATION: VITAL SIGNS: Please see below. GENERAL: No acute distress, alert and cooperative on exam HEENT: Normocephalic, atraumatic, lids and conjunctivae normal, nares patent, oropharyngeal mucosa moist CARDIOVASCULAR: Regular rate and rhythm, no murmurs, rubs or gallops. RESPIRATORY: Clear to auscultation bilaterally. ABDOMINAL: Soft, nontender, nondistended EXTREMITIES: No edema, cyanosis of extremities, pedal pulses +2 bilaterally, radial pulses +2 bilaterally NEUROLOGICAL:, Good tone, range of motion intact PSYCHOLOGICAL:. Alert and oriented 4 LABORATORY DATA, IMAGING STUDIES, MICROBIOLOGY: Please see below. ASSESSMENT: This is a 70-year-old female with a past medical history significant for stage IV breast cancer with bony metastases and a history of rib fractures, history of recurrent bilateral pleural effusions who presents today after a fall. The patient did not have any definite findings on imaging done in the ED, which included a head CT, chest CT, cervical spine CT, chest x-ray and shoulder x-ray. #Fall secondary to possible syncope versus chronic balance instability secondary to diabetic neuropathy. Patient had an unwitnessed fall, therefore, we cannot rule out syncopal episode at this time. Patient will be on telemetry to rule out any arrhythmias. Orthostatic blood pressures were negative for orthostatic changes Since CPK levels were negative in the ER, Rhabdomyolysis is very low on the differential at this time. Troponin was negative in the ER. However, due to EKG reading in the ER of increased T-wave abnormality, repeat troponin was also unchanged. #Vomiting, resolved. Zofran ordered at 2 mg q8hprn because the patient has borderline prolonged QTC and is also on an SSRI. Abdominal x-ray KUB showed no acute obstructive process. -likely secondary to aromatase-inhibitor medication for pt's cancer. #Dyspnea, multifactorial. Patient has a history of chronic bilateral pleural effusions that required pigtail catheters at her last hospitalization. Patient's effusions do not appear to be greater than her last hospitalization. Due to patient's overnight oxygen saturations decrease, Dr. Taylor was consulted, due to bilateral effusions being present. Patient has a history of diastolic congestive heart failure. Therefore, 3 doses of Lasix of 60 mg IV had been administered, which were discontinued due to pt's worsening renal function. Patient's BNP level of 17,000, is at her baseline. Monitor daily I's and O's. Monitor daily weights. Patient's shallow breathing is likely 2/2 pain from falling on her right-hand side, complicated by her history of rib fractures and bony metastases from stage IV breast cancer. Continue home medication. Guaifenesin 600 mg daily. Due to patient's increased oxygen therapy need and continued right-sided pain in the context of a history of bony metastases from stage IV breast cancer, bilateral rib x-rays were ordered, but showed no sign of pneumothorax, just nondisplaced fractures of ribs 6, 10, and 11. -Furosemide 40 mg BID restarted due to patient's bilateral pleural effusions and worsening dyspnea yesterday, 09/26/2020. -Dr. Taylor was consulted and recommended that pt have thoracentesis done on Tuesday by IR. #CKD stage III. Patient had an appointment with Dr. Augustine later this week, she has never been seen at [facility] as of yet. Patient's creatinine level of 1.8 is increased from her baseline of 1.7. Furosemide restarted since creatinine is still 1.81 today and she has bilateral pleural effusions. -Consider nephrology consult if creatinine continues to increase. #Hypertension Patient's home dose of amlodipine has been continued. -Furosemide was stopped due to creatinine worsening. -If patient's hypertension worsens, consider administration of hydralazine. Patient is bradycardic therefore, home medication, carvedilol is not being continued at this time. Patient's systolic hypertension is likely secondary to pain. Patient has been prescribed morphine every 4 hours to tolerate pain. #Hyperkalemia. Patient's potassium level is 4.8 today, without Kayexalate administration. Stopped Furosemide, due to pt's worsening renal function, likely does not need Kayexalate administration at this time. -Continue to monitor BMP daily, for hyperkalemia. #Hypothyroidism. Continue home medication, levothyroxine. #Iron deficiency anemia. Patient's hemoglobin, 8.7 today, is stable and the same as yesterday, 09/25/2020. -Continue home ferrous sulfate 325mg daily as patient has no evidence of bleeding and pt reports no more nausea and vomiting at this time. #Stage IV breast cancer with bony metastases -Consider contacting oncology on Tuesday to consult for possible palliative radiation therapy of the chest, per Dr. Taylor. Continue home medication. Letrozole 2.5 mg tab Continue home medication, calcium/vitamin D. Continue home medication. Vitamin C 500 mg Continue home medication. Vitamin B12 500 g. #Type 2 diabetes mellitus Hold home medication glipizide. Sliding scale insulin ordered. Hypoglycemic protocol in place #History of depression. Continue home medication Escitalopram 5 mg daily. #Bowel regimen. Continue home medication. Senna 2 tabs daily when necessary Mylanta 30 mL daily when necessary ordered for dyspepsia. Milk of magnesia 30 mL daily when necessary ordered. DVT prophylaxis: Heparin 5000 U Q12H, to be stopped tomorrow morning at 10AM sin ce patient will likely be getting thoracentesis procedure on 09/29/2020. DISPOSITION: Cannot discharge at this time as the patient will need thoracentesis for bilateral effusions on Tuesday and Oncology needs to be consulted for potential palliative care at that time as well. VS, I&O, 24H, Fishbone Vital Signs/I&O Vital Signs Date Time Temp Pulse Resp B/P (MAP) Pulse Ox O2 Delivery O2 Flow Rate FiO2 09/27/20 17:57 20 09/27/20 15:22 61 167/76 (106) 90 Room Air 09/27/20 11:20 98.0 09/27/20 07:09 2.0 I&O- Last 24 Hours up to 6 AM 09/27/20 06:00 Intake Total 0 ml Output Total 275 ml Balance -275 ml Laboratory Data 24H LABS Laboratory Tests 2 09/26/20 20:45: Bedside Glucose (Misc Panel) 132H 09/27/20 05:33: Immature Granulocyte % (Auto) 0.6, Neutrophils (%) (Auto) 73.9H, Lymphocytes (%) (Auto) 12.2L, Monocytes (%) (Auto) 10.4H, Eosinophils (%) (Auto) 2.2, Basophils (%) (Auto) 0.7, Neutrophils # (Auto) 6.4, Lymphocytes # (Auto) 1.1L, Monocytes # (Auto) 0.9H, Eosinophils # (Auto) 0.2, Basophils # (Auto) 0.1, Nucleated Red Blood Cells % (auto) 0.0, Anion Gap 6L, Glomerular Filtration Rate 29.3L, Calcium Level 7.9L, Magnesium Level 2.5H 09/27/20 12:11: Bedside Glucose (Misc Panel) 164H 09/27/20 17:08: Bedside Glucose (Misc Panel) 223H CBC/BMP Laboratory Tests 09/27/20 05:33 Microbiology Microbiology 09/23/20 Blood Culture - Preliminary, Resulted No Growth after 72 hours. All specime... 09/23/20 Blood Culture - Preliminary, Resulted No Growth after 72 hours. All specime... 09/23/20 Respiratory Virus Panel (PCR) ([facility]) - Final, Complete GME ATTESTATION GME ATTESTATION My faculty preceptor for this patient encounter was physically present during the encounter and was fully available. All aspects of the patient interview, examination, medical decision making process, and medical care plan development were reviewed and approved by the faculty preceptor. The faculty preceptor is aware and concurs with the plan as stated in the body of this note and will attest to such by his/her cosignature. ATTENDING NOTE Attending Attestation: Patient independently seen and examined. I have discussed in detail with the re sident the findings and plan of treatment as documented by the resident. I agree with their findings and treatment plan. I will continue to follow the patient during this hospital stay. Reji Montemayor 12, 2021 19:18 KAYLAH PINON MD Sep 28, 2020 06:49
[2020-09-27 20:00] VITALS: BP 157/69
[2020-09-27] MEDS: FERROUS SULFATE 325MG TAB PO SCH (20:17)
[2020-09-27] MEDS: HEPARIN SOD (PORCINE) 5000UNITS/ML 1ML VIAL/SYRINGE SQ SCH (20:18)
[2020-09-28] MEDS: PERCOCET 5MG/325MG TAB PO PRN ×3 (00:06→16:57)
[2020-09-28 04:00] VITALS: BP 160/74
[2020-09-28 04:44] LABS: BASO # 0.1 10^3/uL (0.0-0.2); BASO % 0.9 % (0.0-1.0); EOS # 0.3 10^3/uL (0.0-0.5); EOS % 3.1 % (0.0-3.0); HEMATOCRIT 32.1 % (36.0-47.0); HEMOGLOBIN 10.4 g/dl (12.0-15.5); LYMPH # 1.5 10^3/uL (1.5-5.0); LYMPH % 18.8 % (24.0-44.0); MEAN CORPUSCULAR HEMOGLOBIN 28.8 pg (27.0-33.0); MEAN CORPUSCULAR HGB CONC 32.4 g/dl (32.0-36.5); MEAN CORPUSCULAR VOLUME 88.9 fl (80.0-96.0); MONO # 0.8 10^3/uL (0.0-0.8); MONO % 9.6 % (2.0-8.0); NEUTROPHILS # 5.4 10^3/uL (1.5-8.5); NEUTROPHILS % 67.3 % (36.0-66.0); PLATELET COUNT, AUTOMATED 405 10^3/uL (150-450); RED BLOOD COUNT 3.61 10^6/uL (4.00-5.40); WHITE BLOOD COUNT 7.9 10^3/uL (4.0-10.0)
[2020-09-28 04:57] LABS: INR 0.97; PROTHROMBIN TIME 13.1 SECONDS (12.5-14.3)
[2020-09-28 04:58] LABS: PARTIAL THROMBOPLASTIN TIME 39.1 SECONDS (24.2-38.5)
[2020-09-28 05:14] LABS: CALCIUM LEVEL 7.8 MG/DL (8.8-10.2); CREATININE FOR GFR 1.79 MG/DL (0.55-1.30); GLOMERULAR FILTRATION RATE 29.7 (>39); MAGNESIUM LEVEL 2.5 MG/DL (1.8-2.4); POTASSIUM SERUM 4.6 MEQ/L (3.5-5.1)
[2020-09-28] MEDS: LEVOTHYROXINE 75MCG TABLET (0.075MG) PO SCH (06:15)
[2020-09-28] MEDS: SLF 3 ML SYR IV SCH ×3 (06:16→21:09)
[2020-09-28] MEDS: HEPARIN SOD (PORCINE) 5000UNITS/ML 1ML VIAL/SYRINGE SQ SCH (06:16)
[2020-09-28 07:31] VITALS: BP 162/72
[2020-09-28] MEDS: HumaLOG INSULIN (NovoLOG) PER UNIT SC SCH ×4 (08:11→21:00)
[2020-09-28] MEDS: ASCORBIC ACID 500 MG TAB PO SCH (08:12)
[2020-09-28] MEDS: FUROSEMIDE 40MG/4ML VIAL (J1940) IV SCH ×2 (08:12→16:53)
[2020-09-28] MEDS: ESCITALOPRAM OXALATE 5MG TABLET (LEXAPRO) PO SCH (08:12)
[2020-09-28] MEDS: CYANOCOBALAMIN 500 MCG TAB PO SCH (08:12)
[2020-09-28] MEDS: LETROZOLE 2.5 MG TAB PO SCH (08:12)
[2020-09-28] MEDS: DOCUSATE SODIUM 100MG CAPSULE PO SCH (08:12)
[2020-09-28] MEDS: guaiFENesin ER 600 MG TAB PO SCH (08:13)
[2020-09-28] MEDS: THIAMINE 100 MG TAB PO SCH (08:13)
[2020-09-28] MEDS: CALCIUM/VITAMIN D 500 MG TAB PO SCH (08:13)
[2020-09-28] MEDS: FERROUS SULFATE 325MG TAB PO SCH (08:13)
[2020-09-28 11:47] VITALS: BP 166/72
--- NOTE | 2020-09-28 11:51 | REP ---
INDICATION: pleural effusions. History of breast carcinoma with skeletal metastasis. COMPARISON: Comparison chest x-ray September 26, 2020. TECHNIQUE: Two views.. FINDINGS: Widespread lytic skeletal metastatic lesions are again seen although less conspicuous than on the recent comparison study of September 26, 2020. There is blunting of the pleural angles bilaterally consistent with small bilateral pleural effusions. No infiltrate is appreciated. Cardiomediastinal silhouette is unremarkable. IMPRESSION: Bilateral pleural effusions and widespread skeletal metastatic disease. There is a fracture of the right 7th lateral rib.. <Electronically signed by Donald Dunaway > 09/28/20 [id number]
--- NOTE | 2020-09-28 13:02 | IPNPDOC ---
Text Note Date of Service The patient was seen on 09/28/20. NOTE SUBJECTIVE: Patient seen and examined at bedside. No acute overnight events reported. Patient still notes pain with her right lateral ribs. OBJECTIVE: PHYSICAL EXAMINATION: VITAL SIGNS: Please see below. GENERAL: NAD, sitting comfortably in chair, chronically ill appearing HEENT: NC/AT, EOMI CARDIOVASCULAR: RRR, +S1S2 RESPIRATORY: CTA B/L ABDOMINAL: Soft, nontender, nondistended, +BS EXTREMITIES: No edema NEUROLOGICAL: no gross focal deficits PSYCHOLOGICAL:. AAOx3 LABORATORY DATA, IMAGING STUDIES, MICROBIOLOGY: Please see below. A/P: 70F with PMHx stage IV breast cancer/bony mets, rib fxs, recurrent b/l pleural effusions who presents for falls, admitted for further evaluation and treatment. #Falls - no events noted on tele - orthostatic BP WNL - continue PT, fall precautions #acute hypoxic respiratory failure - resolved - multi-factorial as below #rib fractures - pain control - percocet - incentive spirometry as tolerated shallow breathing likely 2/2 pain from falling on her right-hand side, complicated by rib fractures and bony metastases from stage IV breast cancer. #pleural effusions - continue with diuresis - IV lasix - plan for IR for thoracentesis tomorrow 09/29/20 Patient has a history of chronic bilateral pleural effusions that required pigtail catheters at her last hospitalization. Patient's effusions do not appear to be greater than her last hospitalization. #HFpEF Monitor daily I's and O's. Monitor daily weights. Patient's BNP level of 17,000, is at her baseline. #Vomiting, resolved. #CKD stage III. Patient had an appointment with Dr. Augustine later this week, she has never been seen at [place] as of yet. grossly at baseline #HTN - still elevated - complicated with pain - Continue amlodipine -If patient's hypertension worsens, consider hydralazine. Patient is bradycardic therefore, home medication, carvedilol is not being continued at this time. #Hyperkalemia. resolved #Hypothyroidism. Continue home medication, levothyroxine. #Iron deficiency anemia. -Continue home ferrous sulfate 325mg daily as patient has no evidence of bleeding and pt reports no more nausea and vomiting at this time. #Stage IV breast cancer with bony metastases - patient states today she is not interested in palliative RT Continue home medication. Letrozole 2.5 mg tab Continue home medication, calcium/vitamin D. Continue home medication. Vitamin C 500 mg Continue home medication. Vitamin B12 500 g. #Type 2 diabetes mellitus Sliding scale insulin ordered. Hypoglycemic protocol in place #History of depression. Continue home medication Escitalopram 5 mg daily. #Bowel regimen. Continue home medication. Senna 2 tabs daily when necessary Mylanta 30 mL daily when necessary ordered for dyspepsia. Milk of magnesia 30 mL daily when necessary ordered. DVT prophylaxis: mechanical prophylaxis DISPOSITION: Pending clinical improvement. Continue IV Lasix for diuresis. IR intervention with thoracentesis tomorrow. VS,Fishbone, I+O VS, Fishbone, I+O Laboratory Tests 09/28/20 04:33 Vital Signs Date Time Temp Pulse Resp B/P (MAP) Pulse Ox O2 Delivery O2 Flow Rate FiO2 09/28/20 11:47 97.5 62 18 166/72 (103) 96 Room Air 09/27/20 07:09 2.0 I&O- Last 24 Hours up to 6 AM 09/28/20 06:00 Intake Total 900 ml Output Total 950 ml Balance -50 ml KAYLAH PINON MD Sep 28, 2020 13:02
[2020-09-28 16:28] VITALS: BP 172/72
[2020-09-28 20:09] VITALS: BP 158/72
[2020-09-29] VITALS: BP 162/72
[2020-09-29] MEDS: PERCOCET 5MG/325MG TAB PO PRN ×4 (00:37→22:33)
[2020-09-29 04:00] VITALS: BP 169/77
[2020-09-29] MEDS: SLF 3 ML SYR IV SCH ×3 (05:47→20:20)
[2020-09-29] MEDS: LEVOTHYROXINE 75MCG TABLET (0.075MG) PO SCH (05:47)
[2020-09-29 06:12] LABS: BASO # 0.1 10^3/uL (0.0-0.2); BASO % 0.8 % (0.0-1.0); EOS # 0.3 10^3/uL (0.0-0.5); EOS % 4.5 % (0.0-3.0); HEMATOCRIT 33.4 % (36.0-47.0); HEMOGLOBIN 10.9 g/dl (12.0-15.5); LYMPH # 1.3 10^3/uL (1.5-5.0); LYMPH % 17.8 % (24.0-44.0); MEAN CORPUSCULAR HEMOGLOBIN 29.5 pg (27.0-33.0); MEAN CORPUSCULAR HGB CONC 32.6 g/dl (32.0-36.5); MEAN CORPUSCULAR VOLUME 90.5 fl (80.0-96.0); MONO # 0.8 10^3/uL (0.0-0.8); MONO % 11.8 % (2.0-8.0); NEUTROPHILS # 4.6 10^3/uL (1.5-8.5); NEUTROPHILS % 64.7 % (36.0-66.0); PLATELET COUNT, AUTOMATED 412 10^3/uL (150-450); RED BLOOD COUNT 3.69 10^6/uL (4.00-5.40); WHITE BLOOD COUNT 7.1 10^3/uL (4.0-10.0)
[2020-09-29 06:37] LABS: CALCIUM LEVEL 8.3 MG/DL (8.8-10.2); CREATININE FOR GFR 1.63 MG/DL (0.55-1.30); GLOMERULAR FILTRATION RATE 33.1 (>39)
[2020-09-29 08:00] VITALS: BP 180/82
[2020-09-29] MEDS: LETROZOLE 2.5 MG TAB PO SCH (09:28)
[2020-09-29] MEDS: guaiFENesin ER 600 MG TAB PO SCH (09:28)
[2020-09-29] MEDS: FUROSEMIDE 40MG/4ML VIAL (J1940) IV SCH ×2 (09:28→18:09)
[2020-09-29] MEDS: ASCORBIC ACID 500 MG TAB PO SCH (09:28)
[2020-09-29] MEDS: HumaLOG INSULIN (NovoLOG) PER UNIT SC SCH ×4 (09:28→20:18)
[2020-09-29] MEDS: THIAMINE 100 MG TAB PO SCH (09:28)
[2020-09-29] MEDS: ESCITALOPRAM OXALATE 5MG TABLET (LEXAPRO) PO SCH (09:28)
[2020-09-29] MEDS: CYANOCOBALAMIN 500 MCG TAB PO SCH (09:29)
[2020-09-29] MEDS: FERROUS SULFATE 325MG TAB PO SCH (09:29)
[2020-09-29] MEDS: CALCIUM/VITAMIN D 500 MG TAB PO SCH (09:29)
[2020-09-29] MEDS: DOCUSATE SODIUM 100MG CAPSULE PO SCH (09:29)
[2020-09-29 10:13] LABS: TOTAL PROTEIN 5.2 GM/DL (6.4-8.2)
--- NOTE | 2020-09-29 10:40 | ECHO ---
ECHOCARDIOGRAM DATE OF PROCEDURE: 09/26/2020 Age: 70 Gender: Height: Weight: REFERRING PROVIDER: KAYLAH PINON M.D. PATIENT LOCATION: Room 3222 REASON FOR TESTING: Heart failure. 2D MEASUREMENTS: IVS 1.2 cm LV 4.8 cm LVPW 1.3 cm LA 4.2 cm Aorta 2.8 cm IVC 1.7 cm DOPPLER MEASUREMENT Peak velocity across the aortic valve 1.5 m/s Peak velocity across the LVOT 1.1 m/s Mitral E 1.0 Mitral A 0.92 with a ratio of 1.1 Maximum tricuspid valve velocity 2.4 m/s 2D COMMENTS: 1. Normal left ventricular size with mildly increased left ventricular wall thickness. Left ventricular systolic function is normal, estimated EF 60% to 65%. 2. Mildly dilated left atrium. Normal right atrium and right ventricle. 3. The atrial septum appeared to be normal without evidence of defect or shunt. 4. Normal aortic root. 5. Trace pericardial effusion was noted, no evidence of cardiac tamponade. Bilateral pleural effusion was noted. 6. Mildly calcified aortic valve with normal leaflet excursion. Mildly calcified mitral annulus with normal anterior mitral valve leaflet motion. Normal tricuspid valve and pulmonic valve. The proximal pulmonary artery branches were not well visualized. 7. The inferior vena cava was normal in size, central venous pressure is probably normal. Doppler detects trace aortic regurgitation, mild mitral regurgitation, and mild tricuspid regurgitation. The calculated pulmonary artery systolic pressure varies between 30 to 40 mmHg. Abnormal relaxation pattern was noted across the mitral valve leaflets, as well as the mitral valve annulus consistent with features of grade 1 left ventricular diastolic dysfunction. IMPRESSION: 1. Normal global left ventricular systolic function. There are some features of grade 1 left ventricular diastolic dysfunction manifested by abnormal relaxation. 2. Aortic valve sclerosis with trace aortic regurgitation, but no aortic stenosis. 3. Mitral annulus calcification with mild mitral regurgitation and a mildly enlarged left atrium. 4. Mild tricuspid regurgitation with a mild pulmonary hypertension. 5. A small pericardial effusion was noted, no evidence of cardiac tamponade. Bilateral pleural effusion was noted.
--- NOTE | 2020-09-29 11:20 | IPNPDOC ---
Date Seen The patient was seen on 09/29/20. Progress Note SUBJECTIVE: This is hospital day 6. Pt denies having any episodes of vomiting yesterday. She reports feeling more hydrated today and feeling generally better. She denies feeling nauseated at this time. She denies any chest pain, pressure, headaches, visual blurriness or changes, nausea, vomiting, diarrhea, or constipation at this time. She denies feeling any swelling in her legs. She reports some numbness that is chronic with her diabetic neuropathy in her feet and shins bilaterally. Patient's right rib pain is tolerated with 2 tablets, Percocet, per patient's request, as long as she does not move. However, she does report the ability to move a little more than on admission without pain. She did not have any events on telemetry, although she remains bradycardic, her heart rate has increased to the low 60s from previously being in the high 50s. Patient reports that she was not taking the aromatase inhibitor at home. She states that she was about to receive it in the mail, but hadn't actually started administration. She has been receiving her aromatase inhibitor since admission here. Patient is no longer requiring 2L NC and is oxygenating well on room air. Pt reports that she would not like to pursue palliative radiation therapy of the chest at this time. OBJECTIVE: PHYSICAL EXAMINATION: VITAL SIGNS: Please see below. GENERAL: No acute distress, alert and cooperative on exam HEENT: Normocephalic, atraumatic, lids and conjunctivae normal, nares patent, oropharyngeal mucosa moist CARDIOVASCULAR: Regular rate and rhythm, no murmurs, rubs or gallops. RESPIRATORY: Clear to auscultation bilaterally. ABDOMINAL: Soft, nontender, nondistended EXTREMITIES: No edema, cyanosis of extremities, pedal pulses +2 bilaterally, radial pulses +2 bilaterally NEUROLOGICAL:, Good tone, range of motion intact PSYCHOLOGICAL:. Alert and oriented 4 LABORATORY DATA, IMAGING STUDIES, MICROBIOLOGY: Please see below. ASSESSMENT: This is a 70-year-old female with a past medical history significant for stage IV breast cancer with bony metastases and a history of rib fractures, history of recurrent bilateral pleural effusions who presents today after a fall. The patient did not have any definite findings on imaging done in the ED, which included a head CT, chest CT, cervical spine CT, chest x-ray and shoulder x-ray. #Fall secondary to possible syncope versus chronic balance instability secondary to diabetic neuropathy. Patient had an unwitnessed fall, therefore, we cannot rule out syncopal episode at this time. Patient remains on telemetry and has not had arrhythmias, but has been bradycardic Orthostatic blood pressures were negative for orthostatic changes Since CPK levels were negative in the ER, Rhabdomyolysis is very low on the differential at this time. Troponin was negative in the ER. However, due to EKG reading in the ER of increased T-wave abnormality, repeat troponin was also unchanged. #Vomiting, resolved. Zofran ordered at 2 mg q8hprn because the patient has borderline prolonged QTC and is also on an SSRI. Abdominal x-ray KUB showed no acute obstructive process. -likely secondary to aromatase-inhibitor medication for pt's cancer. #Dyspnea, multifactorial. Patient has a history of chronic bilateral pleural effusions that required pigtail catheters at her last hospitalization. Patient's effusions do not appear to be greater than her last hospitalization. Due to patient's overnight oxygen saturations decrease, Dr. Taylor was consulted, due to bilateral effusions being present. Patient has a history of diastolic congestive heart failure. Therefore, 3 doses of Lasix of 60 mg IV had been administered, which were discontinued due to pt's worsening renal function. Patient's BNP level of 17,000, is at her baseline. Monitor daily I's and O's. Monitor daily weights. Patient's shallow breathing is likely 2/2 pain from falling on her right-hand side, complicated by her history of rib fractures and bony metastases from stage IV breast cancer. Continue home medication. Guaifenesin 600 mg daily. Due to patient's increased oxygen therapy need and continued right-sided pain in the context of a history of bony metastases from stage IV breast cancer, bilateral rib x-rays were ordered, but showed no sign of pneumothorax, just nondisplaced fractures of ribs 6, 10, and 11. -Furosemide 40 mg BID restarted due to patient's bilateral pleural effusions and worsening dyspnea yesterday, 09/26/2020. -Dr. Taylor was consulted and recommended that pt have thoracentesis done on Tuesday by IR. -Echocardiogram showed EF of 60-65%. #CKD stage III. Patient had an appointment with Dr. Augustine later this week, she has never been seen at [facility] [place] [facility] as of yet. Patient's creatinine level of 1.63 is decreased from her baseline of 1.7. Furosemide continued since creatinine is 1.63 today and she has bilateral pleural effusions. -Consider nephrology consult if creatinine continues to increase. #Hypertension Patient's home dose of amlodipine has been continued. -Furosemide was stopped due to creatinine worsening. -If patient's hypertension worsens, consider administration of hydralazine. Patient is bradycardic therefore, home medication, carvedilol is not being continued at this time. Patient's systolic hypertension is likely secondary to pain. Patient has been prescribed morphine every 4 hours to tolerate pain. #Hyperkalemia. Patient's potassium level is 4.8 today, without Kayexalate administration. Stopped Furosemide, due to pt's worsening renal function, likely does not need Kayexalate administration at this time. -Continue to monitor BMP daily, for hyperkalemia. #Hypothyroidism. Continue home medication, levothyroxine. #Iron deficiency anemia. Patient's hemoglobin, 8.7 today, is stable and the same as yesterday, 09/25/2020. -Continue home ferrous sulfate 325mg daily as patient has no evidence of bleedi ng and pt reports no more nausea and vomiting at this time. #Stage IV breast cancer with bony metastases -Pt has declined palliative radiation therapy to the chest. Continue home medication. Letrozole 2.5 mg tab Continue home medication, calcium/vitamin D. Continue home medication. Vitamin C 500 mg Continue home medication. Vitamin B12 500 g. #Type 2 diabetes mellitus Hold home medication glipizide. Sliding scale insulin ordered. Hypoglycemic protocol in place #History of depression. Continue home medication Escitalopram 5 mg daily. #Bowel regimen. Continue home medication. Senna 2 tabs daily when necessary Mylanta 30 mL daily when necessary ordered for dyspepsia. Milk of magnesia 30 mL daily when necessary ordered. DVT prophylaxis: TEDs and sequentials, pt will likely be getting thoracentesis procedure today, 09/29/2020. DISPOSITION: Cannot discharge at this time as the patient will need thoracentesis for bilateral effusions. VS, I&O, 24H, Fishbone Vital Signs/I&O Vital Signs Date Time Temp Pulse Resp B/P (MAP) Pulse Ox O2 Delivery O2 Flow Rate FiO2 09/29/20 09:29 64 180/82 09/29/20 08:00 97.1 18 95 Room Air 09/27/20 07:09 2.0 I&O- Last 24 Hours up to 6 AM0 09/29/20 06:00 Intake Total 600 ml Output Total 1300 ml Balance -700 ml Laboratory Data 24H LABS Laboratory Tests 2 09/28/20 11:52: Bedside Glucose (Misc Panel) 94 09/28/20 16:47: Bedside Glucose (Misc Panel) 217H 09/28/20 21:08: Bedside Glucose (Misc Panel) 152H 09/29/20 05:41: Immature Granulocyte % (Auto) 0.4, Neutrophils (%) (Auto) 64.7, Lymphocytes (%) (Auto) 17.8L, Monocytes (%) (Auto) 11.8H, Eosinophils (%) (Auto) 4.5H, Basophils (%) (Auto) 0.8, Neutrophils # (Auto) 4.6, Lymphocytes # (Auto) 1.3L, Monocytes # (Auto) 0.8, Eosinophils # (Auto) 0.3, Basophils # (Auto) 0.1, Nucleated Red Blood Cells % (auto) 0.0, Anion Gap 7L, Glomerular Filtration Rate 33.1L, Calcium Level 8.3L, Lactate Dehydrogenase 178, Total Protein 5.2L CBC/BMP Laboratory Tests 09/29/20 05:41 Microbiology Microbiology 09/23/20 Blood Culture - Final, Complete NO GROWTH AFTER 5 DAYS 09/23/20 Blood Culture - Final, Complete NO GROWTH AFTER 5 DAYS 09/23/20 Respiratory Virus Panel (PCR) ([facility]) - Final, Complete GME ATTESTATION GME ATTESTATION My faculty preceptor for this patient encounter was physically present during the encounter and was fully available. All aspects of the patient interview, examination, medical decision making process, and medical care plan development were reviewed and approved by the faculty preceptor. The faculty preceptor is aware and concurs with the plan as stated in the body of this note and will attest to such by his/her cosignature. Reji Montemayor DO Sep 29, 2020 11:20
[2020-09-29 12:00] VITALS: BP 109/53
[2020-09-29] MEDS: ONDANSETRON 4 MG TAB PO PRN (12:35)
[2020-09-29 20:00] VITALS: BP 151/70
[2020-09-30 04:00] VITALS: BP 175/76
[2020-09-30] MEDS: PERCOCET 5MG/325MG TAB PO PRN ×3 (04:16→18:42)
[2020-09-30] MEDS: LEVOTHYROXINE 75MCG TABLET (0.075MG) PO SCH (05:32)
[2020-09-30] MEDS: SLF 3 ML SYR IV SCH ×3 (05:32→21:02)
[2020-09-30 05:51] LABS: HEMATOCRIT 31.3 % (36.0-47.0); HEMOGLOBIN 9.9 g/dl (12.0-15.5); MEAN CORPUSCULAR HEMOGLOBIN 28.4 pg (27.0-33.0); MEAN CORPUSCULAR HGB CONC 31.6 g/dl (32.0-36.5); MEAN CORPUSCULAR VOLUME 89.9 fl (80.0-96.0); PLATELET COUNT, AUTOMATED 385 10^3/uL (150-450); RED BLOOD COUNT 3.48 10^6/uL (4.00-5.40); WHITE BLOOD COUNT 6.9 10^3/uL (4.0-10.0)
[2020-09-30 06:10] LABS: CALCIUM LEVEL 8.3 MG/DL (8.8-10.2); CREATININE FOR GFR 1.61 MG/DL (0.55-1.30); GLOMERULAR FILTRATION RATE 33.6 (>39); POTASSIUM SERUM 4.8 MEQ/L (3.5-5.1)
[2020-09-30 08:00] VITALS: BP 186/80
[2020-09-30] MEDS: HumaLOG INSULIN (NovoLOG) PER UNIT SC SCH ×4 (09:54→20:59)
[2020-09-30] MEDS: FUROSEMIDE 40MG/4ML VIAL (J1940) IV SCH (09:54)
[2020-09-30] MEDS: ASCORBIC ACID 500 MG TAB PO SCH (09:55)
[2020-09-30] MEDS: ESCITALOPRAM OXALATE 5MG TABLET (LEXAPRO) PO SCH (09:55)
[2020-09-30] MEDS: LETROZOLE 2.5 MG TAB PO SCH (09:55)
[2020-09-30] MEDS: THIAMINE 100 MG TAB PO SCH (09:56)
[2020-09-30] MEDS: CALCIUM/VITAMIN D 500 MG TAB PO SCH (09:56)
[2020-09-30] MEDS: DOCUSATE SODIUM 100MG CAPSULE PO SCH (09:56)
[2020-09-30] MEDS: guaiFENesin ER 600 MG TAB PO SCH (09:57)
[2020-09-30] MEDS: FERROUS SULFATE 325MG TAB PO SCH (09:57)
[2020-09-30] MEDS: CYANOCOBALAMIN 500 MCG TAB PO SCH (09:58)
[2020-09-30] MEDS ORDERED: LIDOCAINE 1% MDV 20ML VIAL As Ordered ONE (11:05)
[2020-09-30] MEDS ORDERED: SODIUM BICARBONATE 8.4% INJ 50MEQ 50 ML VIAL As Ordered ONE (11:06)
--- NOTE | 2020-09-30 12:26 | IPNPDOC ---
Date Seen The patient was seen on 09/30/20. Progress Note SUBJECTIVE: This is hospital day 7. Pt denies having any episodes of vomiting yesterday. She reports feeling more hydrated today and feeling generally better. She denies feeling nauseated at this time, however reports that she vomited yesterday after breakfast, due to which she did not want to eat lunch or dinner. She denies any chest pain, pressure, headaches, visual blurriness or changes, na usea, vomiting, diarrhea, or constipation at this time. She denies any new swelling in her legs. She reports some numbness that is chronic with her diabetic neuropathy in her feet and shins bilaterally. Patient's right rib pain is tolerated with 2 tablets, Percocet, per patient's request, as long as she does not move. However, she does report the ability to move a little more than on admission without pain. She did not have any events on telemetry, although she remains bradycardic, her heart rate has increased to the low 60s from previously being in the high 50s. Patient reports that she was not taking the aromatase inhibitor at home. She states that she was about to receive it in the mail, but hadn't actually started administration. She has been receiving her aromatase inhibitor since admission here. Patient is no longer requiring 2L NC and is oxygenating well on room air. Pt reports that she would not like to pursue palliative radiation therapy at this time even after multiple explanations of her disease. OBJECTIVE: PHYSICAL EXAMINATION: VITAL SIGNS: Please see below. GENERAL: No acute distress, alert and cooperative on exam HEENT: Normocephalic, atraumatic, lids and conjunctivae normal, nares patent, oropharyngeal mucosa moist CARDIOVASCULAR: Regular rate and rhythm, no murmurs, rubs or gallops. RESPIRATORY: Clear to auscultation bilaterally. ABDOMINAL: Soft, nontender, nondistended EXTREMITIES: No edema, cyanosis of extremities, pedal pulses +2 bilaterally, radial pulses +2 bilaterally NEUROLOGICAL:, Good tone, range of motion intact PSYCHOLOGICAL:. Alert and oriented 4 LABORATORY DATA, IMAGING STUDIES, MICROBIOLOGY: Please see below. ASSESSMENT: This is a 70-year-old female with a past medical history significant for stage IV breast cancer with bony metastases and a history of rib fractures, history of recurrent bilateral pleural effusions who presents today after a fall. The patient did not have any definite findings on imaging done in the ED, which included a head CT, chest CT, cervical spine CT, chest x-ray and shoulder x-ray. #Fall secondary to possible syncope versus chronic balance instability secondary to diabetic neuropathy. Patient had an unwitnessed fall, therefore, we cannot rule out syncopal episode at this time. Patient remains on telemetry and has not had arrhythmias, but has been bradycardic Orthostatic blood pressures were negative for orthostatic changes Since CPK levels were negative in the ER, Rhabdomyolysis is very low on the differential at this time. Troponin was negative in the ER. However, due to EKG reading in the ER of increased T-wave abnormality, repeat troponin was also unchanged. #Vomiting, resolved. Zofran ordered at 2 mg q8hprn because the patient has borderline prolonged QTC and is also on an SSRI. Abdominal x-ray KUB showed no acute obstructive process. -likely secondary to aromatase-inhibitor medication for pt's cancer. #Dyspnea, multifactorial. Patient has a history of chronic bilateral pleural effusions that required pigtail catheters at her last hospitalization. Patient's effusions do not appear to be greater than her last hospitalization. Due to patient's overnight oxygen saturations decrease, Dr. Taylor was consulted, due to bilateral effusions being present. Patient has a history of diastolic congestive heart failure. Therefore, 3 doses of Lasix of 60 mg IV had been administered, which were discontinued due to pt's worsening renal function. Patient's BNP level of 17,000, is at her baseline. Monitor daily I's and O's. Monitor daily weights. Patient's shallow breathing is likely 2/2 pain from falling on her right-hand side, complicated by her history of rib fractures and bony metastases from stage IV breast cancer. Continue home medication. Guaifenesin 600 mg daily. Due to patient's increased oxygen therapy need and continued right-sided pain in the context of a history of bony metastases from stage IV breast cancer, bilateral rib x-rays were ordered, but showed no sign of pneumothorax, just nondisplaced fractures of ribs 6, 10, and 11. -Echocardiogram showed EF of 60-65%. -Furosemide 40 mg BID restarted due to patient's bilateral pleural effusions and worsening dyspnea yesterday, 09/26/2020. -Dr. Taylor was consulted and recommended that pt will have thoracentesis today, 09/30/2020, by IR for the right first, then left possibly tomorrow. #CKD stage III. Patient had an appointment with Dr. Augustine later this week, she has never been seen at [facility] as of yet. Patient's creatinine level of 1.61 is decreased from her baseline of 1.7. Furosemide continued since creatinine is 1.61 today and she has bilateral pleural effusions. -Consider nephrology consult if creatinine continues to increase. #Hypertension Patient's home dose of amlodipine has been continued. -Furosemide was stopped due to creatinine worsening. -If patient's hypertension worsens, consider administration of hydralazine. Patient is bradycardic therefore, home medication, carvedilol is not being continued at this time. Patient's systolic hypertension is likely secondary to pain. Patient has been prescribed morphine every 4 hours to tolerate pain. #Hyperkalemia. Patient's potassium level is 4.8 today, without Kayexalate administration. Stopped Furosemide, due to pt's worsening renal function, likely does not need Kayexalate administration at this time. -Continue to monitor BMP daily, for hyperkalemia. #Hypothyroidism. Continue home medication, levothyroxine. #Iron deficiency anemia. Patient's hemoglobin, 8.7 today, is stable and the same as yesterday, 09/25/2020. -Continue home ferrous sulfate 325mg daily as patient has no evidence of ble eding and pt reports no more nausea and vomiting at this time. #Stage IV breast cancer with bony metastases -Pt has declined palliative radiation therapy to the chest. Continue home medication. Letrozole 2.5 mg tab Continue home medication, calcium/vitamin D. Continue home medication. Vitamin C 500 mg Continue home medication. Vitamin B12 500 g. #Type 2 diabetes mellitus Hold home medication glipizide. Sliding scale insulin ordered. Hypoglycemic protocol in place #History of depression. Continue home medication Escitalopram 5 mg daily. #Bowel regimen. Continue home medication. Senna 2 tabs daily when necessary Mylanta 30 mL daily when necessary ordered for dyspepsia. Milk of magnesia 30 mL daily when necessary ordered. DVT prophylaxis: TEDs and sequentials, pt will likely be getting thoracentesis procedure right first, today, 09/30/2020, then if patient tolerates this well, then left tomorrow. DISPOSITION: Cannot discharge at this time as the patient will need thorace ntesis for bilateral effusions. VS, I&O, 24H, Fishbone Vital Signs/I&O Vital Signs Date Time Temp Pulse Resp B/P (MAP) Pulse Ox O2 Delivery O2 Flow Rate FiO2 09/30/20 09:57 63 186/80 09/30/20 08:00 97.7 15 95 Nasal Cannula 2.0 I&O- Last 24 Hours up to 6 AM 09/30/20 06:00 Intake Total 740 ml Output Total 1600 ml Balance -860 ml Laboratory Data 24H LABS Laboratory Tests 2 09/29/20 17:22: Bedside Glucose (Misc Panel) 165H 09/29/20 20:17: Bedside Glucose (Misc Panel) 118H 09/30/20 05:29: Nucleated Red Blood Cells % (auto) 0.0, Anion Gap 7L, Glomerular Filtration Rate 33.6L, Calcium Level 8.3L CBC/BMP Laboratory Tests 09/30/20 05:29 Microbiology Microbiology 09/23/20 Blood Culture - Final, Complete NO GROWTH AFTER 5 DAYS 09/23/20 Blood Culture - Final, Complete NO GROWTH AFTER 5 DAYS 09/23/20 Respiratory Virus Panel (PCR) (CARINA) - Final, Complete GME ATTESTATION GME ATTESTATION My faculty preceptor for this patient encounter was physically present during the encounter and was fully available. All aspects of the patient interview, examination, medical decision making process, and medical care plan development were reviewed and approved by the faculty preceptor. The faculty preceptor is aw are and concurs with the plan as stated in the body of this note and will attest to such by his/her cosignature. ATTENDING NOTE I, Edson Martinez, have independently examined this patient and performed my own physical exam, as well as reviewed the documentation and edited where necessary. I have discussed in detail with the resident / student the findings and plan of treatment as documented by the resident / student and edited their note. I agree with their findings and treatment plan and have edited their documentation. I will continue to follow the patient during this hospital stay. Reji Montemayor DO Sep 30, 2020 12:26 EDSON MARTINEZ MD Sep 30, 2020 14:02
--- NOTE | 2020-09-30 13:35 | REP ---
INDICATION: POST RIGHT THORA, 2 VIEW. COMPARISON: 09/28/2020. TECHNIQUE: Two views chest. FINDINGS: There is no pneumothorax status post right thoracentesis. There are small bilateral pleural effusions left greater than right with mild adjacent bibasilar parenchymal opacity. The heart and mediastinum are unchanged. IMPRESSION: No pneumothorax status post right thoracentesis. <Electronically signed by Stephane Vargas > 09/30/20 [id number]
[2020-09-30 14:19] LABS: PH BODY FLUID 7.598 UNITS (NOT ESTABLISHED); SOURCE, BODY FLUID pH PLEURAL
[2020-09-30 14:26] LABS: PLEURAL FL COLOR AMBER (COLORLESS); SOURCE, BODY FLUID PLEURAL
[2020-09-30 14:27] LABS: APPEARANCE, BODY FLUID CLOUDY (CLEAR)
[2020-09-30] MEDS: PANTOPRAZOLE 40MG TAB (PROTONIX) PO SCH ×2 (14:33→21:02)
[2020-09-30 15:46] LABS: AMYLASE, BODY FLUID 21 U/L (NOT ESTABLISHED); LDH, BODY FLUID 127 U/L (NOT ESTABLISHED); SOURCE, BODY FLUID AMYLASE PLEURAL; SOURCE, BODY FLUID GLUCOSE PLEURAL; SOURCE, BODY FLUID LDH PLEURAL; SOURCE, BODY FLUID TOT PROTEIN PLEURAL; TOTAL PROTEIN, BODY FLUID 3.4 G/DL (NOT ESTABLISHED)
[2020-09-30 16:00] VITALS: BP 99/60
[2020-09-30] MEDS: ONDANSETRON 4 MG TAB PO PRN (18:29)
--- NOTE | 2020-09-30 18:56 | REP ---
INDICATION: Right pleural effusion The patient has a history of right pleural effusion COMPARISON: None. TECHNIQUE: The procedure was performed by NITISH Hope, under the direct supervision of Dr. Vargas The risks and benefits of the procedure were explained to the patient and an informed consent was obtained both verbally and written. Directly prior to the start of the procedure a formal time-out was completed in the procedure room. Pleural fluid in right lung zone was localized using ultrasound guidance. The skin was prepped and draped in a sterile fashion. Seven ML of buffered lidocaine was used as a local anesthetic. Using ultrasound guidance an 8-Uzbek multi side-hole catheter was inserted using trocar technique. FINDINGS: One thousand six hundred mL of red colored fluid was withdrawn and sent to the laboratory for further analysis. The patient tolerated the procedure well and there were no immediate complications. After the appropriate amount of monitored convalescence, the patient was discharged from the department. IMPRESSION: Ultrasound-guided thoracentesis with removal of 1600 mL from the right lung zone. <Electronically signed by Yee Barroso > 09/30/20 1652 <Electronically signed by Stephane Vargas > 09/30/20 [id number]
[2020-09-30 20:00] VITALS: BP 143/67
[2020-10-01] VITALS: BP 142/65
[2020-10-01] MEDS: PERCOCET 5MG/325MG TAB PO PRN ×3 (02:17→21:41)
[2020-10-01 04:00] VITALS: BP 143/67
[2020-10-01 05:38] LABS: BASO # 0.1 10^3/uL (0.0-0.2); BASO % 0.7 % (0.0-1.0); EOS # 0.3 10^3/uL (0.0-0.5); HEMATOCRIT 32.9 % (36.0-47.0); HEMOGLOBIN 10.3 g/dl (12.0-15.5); LYMPH # 1.2 10^3/uL (1.5-5.0); LYMPH % 15.8 % (24.0-44.0); MEAN CORPUSCULAR HEMOGLOBIN 28.5 pg (27.0-33.0); MEAN CORPUSCULAR HGB CONC 31.3 g/dl (32.0-36.5); MEAN CORPUSCULAR VOLUME 91.1 fl (80.0-96.0); MONO # 0.8 10^3/uL (0.0-0.8); MONO % 10.3 % (2.0-8.0); NEUTROPHILS # 5.2 10^3/uL (1.5-8.5); NEUTROPHILS % 68.9 % (36.0-66.0); PLATELET COUNT, AUTOMATED 401 10^3/uL (150-450); RED BLOOD COUNT 3.61 10^6/uL (4.00-5.40); WHITE BLOOD COUNT 7.5 10^3/uL (4.0-10.0)
[2020-10-01 06:10] LABS: CALCIUM LEVEL 7.9 MG/DL (8.8-10.2); CREATININE FOR GFR 1.88 MG/DL (0.55-1.30); GLOMERULAR FILTRATION RATE 28.1 (>39); MAGNESIUM LEVEL 2.5 MG/DL (1.8-2.4); POTASSIUM SERUM 4.8 MEQ/L (3.5-5.1)
[2020-10-01] MEDS: SLF 3 ML SYR IV SCH ×3 (06:30→22:10)
[2020-10-01] MEDS: LEVOTHYROXINE 75MCG TABLET (0.075MG) PO SCH (06:30)
[2020-10-01 08:00] VITALS: BP 167/77
[2020-10-01] MEDS: CALCIUM/VITAMIN D 500 MG TAB PO SCH (08:51)
[2020-10-01] MEDS: guaiFENesin ER 600 MG TAB PO SCH (08:51)
[2020-10-01] MEDS: PANTOPRAZOLE 40MG TAB (PROTONIX) PO SCH ×2 (08:51→21:40)
[2020-10-01] MEDS: DOCUSATE SODIUM 100MG CAPSULE PO SCH (08:51)
[2020-10-01] MEDS: ASCORBIC ACID 500 MG TAB PO SCH (08:51)
[2020-10-01] MEDS: THIAMINE 100 MG TAB PO SCH (08:51)
[2020-10-01] MEDS: FERROUS SULFATE 325MG TAB PO SCH (08:52)
[2020-10-01] MEDS: LETROZOLE 2.5 MG TAB PO SCH (08:53)
[2020-10-01] MEDS: HumaLOG INSULIN (NovoLOG) PER UNIT SC SCH ×4 (08:53→21:00)
[2020-10-01] MEDS: ESCITALOPRAM OXALATE 5MG TABLET (LEXAPRO) PO SCH (08:54)
[2020-10-01] MEDS: CYANOCOBALAMIN 500 MCG TAB PO SCH (08:54)
--- NOTE | 2020-10-01 09:43 | IPNPDOC ---
Date Seen The patient was seen on 10/01/20. Progress Note SUBJECTIVE: This is hospital day 8. Pt denies having any episodes of vomiting yesterday. She reports feeling more hydrated today and feeling generally better. She denies feeling nauseated at this time and reports that she was able to tolerate breakfast, lunch and dinner yesterday. She denies any chest pain, pressure, headaches, visual blurriness or changes, nausea, vomiting, diarrhea, or cons tipation at this time. She denies any new swelling in her legs. She reports some numbness that is chronic with her diabetic neuropathy in her feet and shins bilaterally. Patient's right rib pain is tolerated with 2 tablets, Percocet, per patient's request, as long as she does not move. However, she does report the ability to move a little more than on admission without pain. She did not have any events on telemetry. Patient reports that she was not taking the aromatase inhibitor at home. She states that she was about to receive it in the mail, but hadn't actually started administration. She has been receiving her aromatase inhibitor since admission here. Patient is no longer requiring 2L NC and is oxygenating well on room air. The patient had 1.6 L of red fluid taken off her right pleura. Pt reports that she would not like to pursue palliative radiation therapy at this time even after multiple explanations of her disease. OBJECTIVE: PHYSICAL EXAMINATION: VITAL SIGNS: Please see below. GENERAL: No acute distress, alert and cooperative on exam HEENT: Normocephalic, atraumatic, lids and conjunctivae normal, nares patent, oropharyngeal mucosa moist CARDIOVASCULAR: Regular rate and rhythm, no murmurs, rubs or gallops. RESPIRATORY: Clear to auscultation bilaterally, right pleural rub auscultated at lower lateral right chest area. ABDOMINAL: Soft, nontender, nondistended EXTREMITIES: No edema, cyanosis of extremities, pedal pulses +2 bilaterally, radial pulses +2 bilaterally NEUROLOGICAL:, Good tone, range of motion intact PSYCHOLOGICAL:. Alert and oriented 4 LABORATORY DATA, IMAGING STUDIES, MICROBIOLOGY: Please see below. ASSESSMENT: This is a 70-year-old female with a past medical history significant for stage IV breast cancer with bony metastases and a history of rib fractures, history of recurrent bilateral pleural effusions who presents today after a fall. The patient did not have any definite findings on imaging done in the ED, which included a head CT, chest CT, cervical spine CT, chest x-ray and shoulder x-ray. #Fall secondary to possible syncope versus chronic balance instability secondary to diabetic neuropathy. Patient had an unwitnessed fall, therefore, we cannot rule out syncopal episode at this time. Patient remains on telemetry and has not had arrhythmias Orthostatic blood pressures were negative for orthostatic changes Since CPK levels were negative in the ER, Rhabdomyolysis is very low on the differential at this time. Troponin was negative in the ER. However, due to EKG reading in the ER of increased T-wave abnormality, repeat troponin was also unchanged. #Vomiting, resolved. Zofran ordered at 2 mg q8hprn because the patient has borderline prolonged QTC and is also on an SSRI. Abdominal x-ray KUB showed no acute obstructive process. -likely secondary to aromatase-inhibitor medication for pt's cancer. #Dyspnea, multifactorial. Patient has a history of chronic bilateral pleural effusions that required pigtail catheters at her last hospitalization. Patient's effusions do not appear to be greater than her last hospitalization. Due to patient's overnight oxygen saturations decrease, Dr. Taylor was consulted, due to bilateral effusions being present. Patient has a history of diastolic congestive heart failure. Therefore, 3 doses of Lasix of 60 mg IV had been administered, which were discontinued due to pt's worsening renal function. Patient's BNP level of 17,000, is at her baseline. Monitor daily I's and O's. Monitor daily weights. Patient's shallow breathing is likely 2/2 pain from falling on her right-hand side, complicated by her history of rib fractures and bony metastases from stage IV breast cancer. Continue home medication. Guaifenesin 600 mg daily. Due to patient's increased oxygen therapy need and continued right-sided pain in the context of a history of bony metastases from stage IV breast cancer, bilateral rib x-rays were ordered, but showed no sign of pneumothorax, just nondisplaced fractures of ribs 6, 10, and 11. -Echocardiogram showed EF of 60-65%. -Furosemide 40 mg BID had been restarted due to patient's bilateral pleural effusions and worsening dyspnea on 09/26/2020. Lasix has been discontinued since patient has been getting thoracentesis. -Dr. Taylor was consulted and recommended that pt had a thoracentesis done on 09/30/2020, by IR for the right first. Patient tolerated it well. Therefore, she will receive a left pleural effusion thoracentesis, today on 10/01/2020. #CKD stage III. Patient had an appointment with Dr. Augustine later this week, she has never been seen at [facility] as of yet. Patient's creatinine level of 1.88 is increased from her baseline of 1.7. -Consider nephrology consult if creatinine continues to increase. Consider nephrology referral upon discharge. #Hypertension Patient's home dose of amlodipine has been continued. -Furosemide was stopped due to creatinine worsening, and since patient is getting thoracentesis of bilateral pleural effusions. -If patient's hypertension worsens, consider administration of hydralazine. Patient is bradycardic therefore, home medication, carvedilol is not being continued at this time. Patient's systolic hypertension is likely secondary to pain. Patient has been prescribed morphine every 4 hours to tolerate pain. #Hyperkalemia. Patient's potassium level is 4.8 today, without Kayexalate administration. Stopped Furosemide, due to pt's worsening renal function, likely does not need Kayexalate administration at this time. -Continue to monitor BMP daily, for hyperkalemia. #Hypothyroidism. Continue home medication, levothyroxine. #Iron deficiency anemia. Patient's hemoglobin, 8.7 today, is stable and the same as yesterday, 09/25/2020. -Continue home ferrous sulfate 325mg daily as patient has no evidence of bleeding and pt reports no more nausea and vomiting at this time. #Stage IV breast cancer with bony metastases -Pt has declined palliative radiation therapy to the chest. Continue home medication. Letrozole 2.5 mg tab Continue home medication, calcium/vitamin D. Continue home medication. Vitamin C 500 mg Continue home medication. Vitamin B12 500 g. #Type 2 diabetes mellitus Hold home medication glipizide. Patient's glucose overnight was 269. Repeat fingerstick glucose ordered. Continue to monitor fingerstick glucose throughout the day and consider adding baseline Levemir if blood glucose continues to be above 200. Sliding scale insulin ordered. Hypoglycemic protocol in place #History of depression. Continue home medication Escitalopram 5 mg daily. #Bowel regimen. Continue home medication. Senna 2 tabs daily when necessary Mylanta 30 mL daily when necessary ordered for dyspepsia. Milk of magnesia 30 mL daily when necessary ordered. DVT prophylaxis: TEDs and sequentials, pt will likely be getting thoracentesis procedure left, today, 10/01/2020. DISPOSITION: Cannot discharge at this time as the patient will need thoracentesis for bilateral effusions. PT recommends placement to rehabilitation upon discharge. VS, I&O, 24H, Fishbone Vital Signs/I&O Vital Signs Date Time Temp Pulse Resp B/P (MAP) Pulse Ox O2 Delivery O2 Flow Rate FiO2 10/01/20 08:51 65 143/67 10/01/20 08:00 98.7 16 99 Nasal Cannula 2.0 I&O- Last 24 Hours up to 6 AM 10/01/20 06:00 Intake Total 920 ml Output Total 1000 ml Balance -80 ml Laboratory Data 24H LABS Laboratory Tests 2 09/30/20 12:17: Body Fluid pH 7.598, Body Fluid pH Source PLEURAL, Body Fluid WBC (Auto) 404H, Body Fluid RBC (Auto) 17, Body Fluid Mononuclear Cells % Auto 89.8H, Fluid Polymorphonuclear Cell % Auto 10.2H, Body Fluid Glucose Source PLEURAL, Body Fluid Glucose 153, Body Fluid Protein Source PLEURAL, Body Fluid Total Protein 3.4, Body Fluid LDH Source PLEURAL, Body Fluid Lactate Dehydrogenase 127, Body Fluid Amylase Source PLEURAL, Body Fluid Amylase 21, Pleural Fluid Source PLEURAL, Pleural Fluid Color COREEN, Pleural Fluid Appearance CLOUDY 09/30/20 13:30: Bedside Glucose (Misc Panel) 186H 09/30/20 17:56: Bedside Glucose (Misc Panel) 176H 10/01/20 05:27: Immature Granulocyte % (Auto) 0.3, Neutrophils (%) (Auto) 68.9H, Lymphocytes (%) (Auto) 15.8L, Monocytes (%) (Auto) 10.3H, Eosinophils (%) (Auto) 4.0H, Basophils (%) (Auto) 0.7, Neutrophils # (Auto) 5.2, Lymphocytes # (Auto) 1.2L, Monocytes # (Auto) 0.8, Eosinophils # (Auto) 0.3, Basophils # (Auto) 0.1, Nucleated Red Blood Cells % (auto) 0.0, Anion Gap 4L, Glomerular Filtration Rate 28.1L, Calcium Level 7.9L, Magnesium Level 2.5H CBC/BMP Laboratory Tests 10/01/20 05:27 Microbiology Microbiology 09/30/20 Acid Fast Stain, Received Pending 09/30/20 Mycobacterial Culture, Received Pending 09/30/20 Fungal Smear, Received Pending 09/30/20 Fungal Culture, Received Pending 09/30/20 Gram Stain - Final, Resulted 09/30/20 Body Fluid Culture, Resulted Pending 09/30/20 Anaerobic Culture, Resulted Pending 09/23/20 Blood Culture - Final, Complete NO GROWTH AFTER 5 DAYS 09/23/20 Blood Culture - Final, Complete NO GROWTH AFTER 5 DAYS 09/23/20 Respiratory Virus Panel (PCR) ([facility]) - Final, Complete GME ATTESTATION GME ATTESTATION My faculty preceptor for this patient encounter was physically present during the encounter and was fully available. All aspects of the patient interview, examination, medical decision making process, and medical care plan development were reviewed and approved by the faculty preceptor. The faculty preceptor is aware and concurs with the plan as stated in the body of this note and will attest to such by his/her cosignature. ATTENDING NOTE I, Edson Martinez, have independently examined this patient and performed my own physical exam, as well as reviewed the documentation and edited where necessary. I have discussed in detail with the resident / student the findings and plan of treatment as documented by the resident / student and edited their note. I agree with their findings and treatment plan and have edited their documentation. I will continue to follow the patient during this hospital stay. Reji Montemayor DO Oct 01, 2020 09:43 EDSON MARTINEZ MD Oct 01, 2020 10:56
--- NOTE | 2020-10-01 11:15 | REP ---
INDICATION: pleural effusions COMPARISON: 09/28/2020 TECHNIQUE: PA and lateral. FINDINGS: Moderate bilateral pleural effusions (left greater than right) and associated lower lobe atelectasis/consolidations are again noted. No obvious pneumothorax. Cardiac silhouette is within normal limits. Skeletal structures are stable. IMPRESSION: Moderate bilateral pleural effusions and bibasilar atelectasis/opacities (left greater than right) relatively similar to prior examination. <Electronically signed by Chuck Barraza > 10/01/20 [id number]
[2020-10-01 12:00] VITALS: BP 170/73
[2020-10-01] MEDS ORDERED: SODIUM BICARBONATE 8.4% INJ 50MEQ 50 ML VIAL As Ordered ONE (14:17)
[2020-10-01] MEDS ORDERED: LIDOCAINE 1% MDV 20ML VIAL As Ordered ONE (14:17)
--- NOTE | 2020-10-01 16:27 | REP ---
INDICATION: post left thora, 2 view. COMPARISON: 10/01/2020 10:53 a.m.. TECHNIQUE: Two views chest. FINDINGS: There is no pneumothorax status post left thoracentesis. There is a decreased amount of left pleural fluid with mild residual. Small right effusion is noted. There is improved aeration of left lung base. The heart and mediastinum are unchanged. IMPRESSION: No pneumothorax status post left thoracentesis. Decreased amount of left pleural fluid and improved aeration of the left lung base. There are small bilateral effusions and mild patchy bibasilar parenchymal opacities. <Electronically signed by Stephane Vargas > 10/01/20 [id number]
[2020-10-01 17:00] VITALS: BP 144/65
--- NOTE | 2020-10-01 17:16 | REP ---
INDICATION: PLEURAL EFFUSION The patient has a history of left pleural effusion COMPARISON: None. TECHNIQUE: The procedure was performed by NITISH Hope, under the direct supervision of Dr. Vargas The risks and benefits of the procedure were explained to the patient and an informed consent was obtained both verbally and written. Directly prior to the start of the procedure a formal time-out was completed in the procedure room. Pleural fluid in left lung zone was localized using ultrasound guidance. The skin was prepped and draped in a sterile fashion. Five ML of buffered lidocaine was used as a local anesthetic. Using ultrasound guidance an 8-Telugu multi side-hole catheter was inserted using trocar technique. FINDINGS: Eight hundred thirty mL of yellow colored fluid was withdrawn and discarded. The patient tolerated the procedure well and there were no immediate complications. After the appropriate amount of monitored convalescence, the patient was discharged from the department. IMPRESSION: Ultrasound-guided thoracentesis with removal of 830 mL of pleural fluid. <Electronically signed by Yee Barroso > 10/01/20 1701 <Electronically signed by Stephane Vargas > 10/01/20 1712
[2020-10-01 22:00] VITALS: BP 153/69
[2020-10-02] MEDS: PERCOCET 5MG/325MG TAB PO PRN ×2 (04:36→09:19)
[2020-10-02 05:37] LABS: BASO % 0.6 % (0.0-1.0); EOS # 0.3 10^3/uL (0.0-0.5); HEMATOCRIT 32.7 % (36.0-47.0); HEMOGLOBIN 10.3 g/dl (12.0-15.5); LYMPH # 1.3 10^3/uL (1.5-5.0); LYMPH % 20.9 % (24.0-44.0); MEAN CORPUSCULAR HEMOGLOBIN 28.9 pg (27.0-33.0); MEAN CORPUSCULAR HGB CONC 31.5 g/dl (32.0-36.5); MEAN CORPUSCULAR VOLUME 91.9 fl (80.0-96.0); MONO # 0.6 10^3/uL (0.0-0.8); MONO % 9.7 % (2.0-8.0); NEUTROPHILS % 64.6 % (36.0-66.0); PLATELET COUNT, AUTOMATED 421 10^3/uL (150-450); RED BLOOD COUNT 3.56 10^6/uL (4.00-5.40); WHITE BLOOD COUNT 6.2 10^3/uL (4.0-10.0)
[2020-10-02 05:59] LABS: CALCIUM LEVEL 8.3 MG/DL (8.8-10.2); CREATININE FOR GFR 1.69 MG/DL (0.55-1.30); GLOMERULAR FILTRATION RATE 31.8 (>39); MAGNESIUM LEVEL 2.4 MG/DL (1.8-2.4)
[2020-10-02 06:00] VITALS: BP 162/70
[2020-10-02] MEDS: LEVOTHYROXINE 75MCG TABLET (0.075MG) PO SCH (06:52)
[2020-10-02] MEDS: SLF 3 ML SYR IV SCH ×3 (06:54→20:40)
[2020-10-02] MEDS: HumaLOG INSULIN (NovoLOG) PER UNIT SC SCH ×4 (07:30→20:33)
[2020-10-02 08:00] VITALS: BP 155/70
--- NOTE | 2020-10-02 08:50 | IPNPDOC ---
Date Seen The patient was seen on 10/02/20. Progress Note This is hospital day 9. Pt denies having any episodes of vomiting yesterday. She reports feeling more hydrated today and feeling generally better. She denies feeling nauseated at this time and reports that she was able to tolerate breakfast, lunch and dinner yesterday. She denies any chest pain, pressure, headaches, visual blurriness or changes, nausea, vomiting, diarrhea, or constipation at this time. She denies any new swelling in her legs. She reports some numbness that is chronic with her diabetic neuropathy in her feet and shins bilaterally. Patient's right rib pain is tolerated with 2 tablets, Percocet, per patient's request, as long as she does not move. However, she does report she has been able to move a little more than on admission without pain. She did not have any events on telemetry. Patient reports that she was not taking the aromatase inhibitor at home. She states that she was about to receive it in the mail, but hadn't actually started administration. She has been receiving her aromatase inhibitor since admission here. Patient is no longer requiring 2L NC and is oxygenating well on room air. The patient had 1.6 L of red fluid (sent to pathology) taken off her right pleura on 09/30/2020, and 830 mL off the left (discarded) on 10/01/2020. Pt reports that she would not like to pursue palliative radiation therapy at this time even after multiple explanations of her disease. OBJECTIVE: PHYSICAL EXAMINATION: VITAL SIGNS: Please see below. GENERAL: No acute distress, alert and cooperative on exam HEENT: Normocephalic, atraumatic, lids and conjunctivae normal, nares patent, oropharyngeal mucosa moist CARDIOVASCULAR: Regular rate and rhythm, no rubs or gallops. Systolic ejection murmur auscultated /. RESPIRATORY: Clear to auscultation bilaterally, right pleural rub auscultated at lower lateral right chest area. ABDOMINAL: Soft, nontender, nondistended EXTREMITIES: No edema, cyanosis of extremities, pedal pulses +2 bilaterally, radial pulses +2 bilaterally NEUROLOGICAL:, Good tone, range of motion intact PSYCHOLOGICAL:. Alert and oriented 4 LABORATORY DATA, IMAGING STUDIES, MICROBIOLOGY: Please see below. ASSESSMENT: This is a 70-year-old female with a past medical history significant for stage IV breast cancer with bony metastases and a history of rib fractures, history of recurrent bilateral pleural effusions who presents today after a fal l. The patient did not have any definite findings on imaging done in the ED, which included a head CT, chest CT, cervical spine CT, chest x-ray and shoulder x-ray. #Fall secondary to possible syncope versus chronic balance instability secondary to diabetic neuropathy. Patient had an unwitnessed fall, therefore, we cannot rule out syncopal episode at this time. Patient remains on telemetry and has not had arrhythmias Orthostatic blood pressures were negative for orthostatic changes Since CPK levels were negative in the ER, Rhabdomyolysis is very low on the differential at this time. Troponin was negative in the ER. However, due to EKG reading in the ER of increased T-wave abnormality, repeat troponin was also unchanged. #Vomiting, resolved. Zofran ordered at 2 mg q8hprn because the patient has borderline prolonged QTC and is also on an SSRI. Abdominal x-ray KUB showed no acute obstructive process. -likely secondary to aromatase-inhibitor medication for pt's cancer. #Dyspnea, multifactorial. Patient has a history of chronic bilateral pleural effusions that required pigtail catheters at her last hospitalization. Patient's effusions do not appear to be greater than her last hospitalization. Due to patient's overnight oxygen saturations decrease, Dr. Taylor was consulted, due to bilateral effusions being present. Patient has a history of diastolic congestive heart failure. Therefore, 3 doses of Lasix of 60 mg IV had been administered, which were discontinued due to pt's worsening renal function. Patient's BNP level of 17,000, is at her baseline. Monitor daily I's and O's. Monitor daily weights. Patient's shallow breathing is likely 2/2 pain from falling on her right-hand side, complicated by her history of rib fractures and bony metastases from stage IV breast cancer. Continue home medication. Guaifenesin 600 mg daily. Due to patient's increased oxygen therapy need and continued right-sided pain in the context of a history of bony metastases from stage IV breast cancer, bilateral rib x-rays were ordered, but showed no sign of pneumothorax, just non displaced fractures of ribs 6, 10, and 11. -Echocardiogram showed EF of 60-65%. Lasix 60 mg daily is being started with holding parameters, SBP <110. -Dr. Taylor was consulted and recommended that pt had a thoracentesis done on 09/30/2020, by IR for the right first, then left on 10/01/2020. Patient tolerated it well. -1600mL pleural effusion taken off right, red fluid, sent to pathology, 09/30/2020. -830 mL pleural effusion taken off left, yellow fluid, discarded, 10/01/2020. #CKD stage III. Patient had an appointment with Dr. Augustine later this week, she has never been seen at [facility] as of yet. Patient's creatinine level of 1.67 is decreased from her baseline of 1.7. -Consider nephrology consult if creatinine continues to increase. Consider nephrology referral upon discharge. #Hypertension Patient's home dose of amlodipine has been continued. -Furosemide was restarted due to stable creatinine. (60mg daily with holding parameters SBP<110) -If patient's hypertension worsens, consider administration of hydralazine. Patient is bradycardic therefore, home medication, carvedilol is not being continued at this time. Patient's systolic hypertension is likely secondary to pain. Patient has been prescribed morphine every 4 hours to tolerate pain. #Hyperkalemia. Patient's potassium level is 5 today, without Kayexalate administration. -Restarting Lasix 60 mg daily due to stable renal function, likely does not need Kayexalate administration at this time. -Continue to monitor BMP daily, for hyperkalemia. #Hypothyroidism. Continue home medication, levothyroxine. #Iron deficiency anemia. Patient's hemoglobin, 10.3 today, is improved. -Continue home ferrous sulfate 325mg daily as patient has no evidence of bleeding and pt reports no more nausea and vomiting at this time. #Stage IV breast cancer with bony metastases -Pt has declined palliative radiation therapy to the chest. Continue home medication. Letrozole 2.5 mg tab Continue home medication, calcium/vitamin D. Continue home medication. Vitamin C 500 mg Continue home medication. Vitamin B12 500 g. - Will resume ibrance (Palbociclib) on discharge #Type 2 diabetes mellitus Hold home medication glipizide. Patient's glucose overnight was 269, 09/30/2020 -Pt's glucose trended back down to 164 on 10/02/2020, without the need for more insulin. Sliding scale insulin ordered. Hypoglycemic protocol in place #History of depression. Continue home medication Escitalopram 5 mg daily. #Bowel regimen. Continue home medication. Senna 2 tabs daily when necessary Mylanta 30 mL daily when necessary ordered for dyspepsia. Milk of magnesia 30 mL daily when necessary ordered. DVT prophylaxis: Switched to Heparin 5000 Q8H due to decreased kidney function and thoracentesis has been done. DISPOSITION: PT recommends placement to rehabilitation upon discharge Transferring to [facility] now. VS, I&O, 24H, Fishbone Vital Signs/I&O Vital Signs Date Time Temp Pulse Resp B/P (MAP) Pulse Ox O2 Delivery O2 Flow Rate FiO2 10/02/20 08:00 98.4 59 16 155/70 (98) 94 Room Air 10/01/20 12:00 I&O- Last 24 Hours up to 6 AM0 10/02/20 06:00 Intake Total 1450 ml Output Total 1730 ml Balance -280 ml Laboratory Data 24H LABS Laboratory Tests 2 10/01/20 12:19: Bedside Glucose (Misc Panel) 118H 10/01/20 17:13: Bedside Glucose (Misc Panel) 164H 10/01/20 21:21: Bedside Glucose (Misc Panel) 159H 10/02/20 05:08: Immature Granulocyte % (Auto) 0.2, Neutrophils (%) (Auto) 64.6, Lymphocytes (%) (Auto) 20.9L, Monocytes (%) (Auto) 9.7H, Eosinophils (%) (Auto) 4.0H, Basophils (%) (Auto) 0.6, Neutrophils # (Auto) 4.0, Lymphocytes # (Auto) 1.3L, Monocytes # (Auto) 0.6, Eosinophils # (Auto) 0.3, Basophils # (Auto) 0.0, Nucleated Red Blood Cells % (auto) 0.0, Anion Gap 4L, Glomerular Filtration Rate 31.8L, Calcium Level 8.3L, Magnesium Level 2.4 CBC/BMP Laboratory Tests 10/02/20 05:08 Microbiology Microbiology 09/30/20 Acid Fast Stain, Received Pending 09/30/20 Mycobacterial Culture, Received Pending 09/30/20 Fungal Smear, Received Pending 09/30/20 Fungal Culture, Received Pending 09/30/20 Gram Stain - Final, Complete 09/30/20 Body Fluid Culture - Final, Complete 09/30/20 Anaerobic Culture - Final, Complete 09/23/20 Blood Culture - Final, Complete NO GROWTH AFTER 5 DAYS 09/23/20 Blood Culture - Final, Complete NO GROWTH AFTER 5 DAYS 09/23/20 Respiratory Virus Panel (PCR) ([facility]) - Final, Complete GME ATTESTATION GME ATTESTATION My faculty preceptor for this patient encounter was physically present during the encounter and was fully available. All aspects of the patient interview, examination, medical decision making process, and medical care plan development were reviewed and approved by the faculty preceptor. The faculty preceptor is aware and concurs with the plan as stated in the body of this note and will attest to such by his/her cosignature. ATTENDING NOTE I, Edson Martinez, have independently examined this patient and performed my own physical exam, as well as reviewed the documentation and edited where necessary. I have discussed in detail with the resident / student the findings and plan of treatment as documented by the resident / student and edited their note. I agree with their findings and treatment plan and have edited their documentation. I will continue to follow the patient during this hospital stay. Rjei Montemayor DO Oct 02, 2020 08:50 EDSON MARTINEZ MD Oct 02, 2020 12:00
[2020-10-02] MEDS: LETROZOLE 2.5 MG TAB PO SCH (09:20)
[2020-10-02 09:21] VITALS: BP 155/70
[2020-10-02] MEDS: FERROUS SULFATE 325MG TAB PO SCH (09:21)
[2020-10-02] MEDS: THIAMINE 100 MG TAB PO SCH (09:21)
[2020-10-02] MEDS: CALCIUM/VITAMIN D 500 MG TAB PO SCH (09:21)
[2020-10-02] MEDS: CYANOCOBALAMIN 500 MCG TAB PO SCH (09:21)
[2020-10-02] MEDS: guaiFENesin ER 600 MG TAB PO SCH (09:21)
[2020-10-02] MEDS: ASCORBIC ACID 500 MG TAB PO SCH (09:21)
[2020-10-02] MEDS: ESCITALOPRAM OXALATE 5MG TABLET (LEXAPRO) PO SCH (09:21)
[2020-10-02] MEDS: PANTOPRAZOLE 40MG TAB (PROTONIX) PO SCH ×2 (09:22→20:38)
[2020-10-02] MEDS: DOCUSATE SODIUM 100MG CAPSULE PO SCH (09:22)
--- NOTE | 2020-10-02 10:17 | REP ---
INDICATION: pleural effusions COMPARISON: 10/01/2020 TECHNIQUE: PA and lateral. FINDINGS: Small bilateral pleural effusions are identified and significantly improved from prior examination. Passive basilar atelectasis cannot be excluded. No focal consolidation. No pneumothorax. Mediastinum and cardiac silhouette within normal limits. Skeletal structures intact. IMPRESSION: Small bilateral pleural effusions and passive atelectasis significantly improved from prior examination. <Electronically signed by Chuck Barraza > 10/02/20 [id number]
[2020-10-02] MEDS: FUROSEMIDE 20 MG TAB PO SCH (10:33)
[2020-10-02 10:34] VITALS: BP 158/62
--- NOTE | 2020-10-02 12:11 | IPN ---
PROGRESS NOTE DATE: 10/02/2020 Ms. Sheikh has now completed both thoracentesis of right and left hemithoraces. She states that she is breathing better today. She is still complaining of back pain. Her vital signs show a maximum temperature of 98.4. Since I last saw her in consultation on September 26, she has been afebrile. Her blood pressure is ranging between 155/70 to 162/70 with a heart rate that ranges between 69-53 in a sinus rhythm and respiratory rate of 16-18 without the use of accessory muscles, who is 94%-95% saturated on room air. PHYSICAL EXAMINATION: She has equal breath sounds on either side but with some inspiratory crackles at either base, more on the left than the right. Percussion note is full to the diaphragm. Cardiac exam is without murmurs, clicks, gallops, or rubs. I cannot feel her point of maximal impulse (PMI). S1 and S2 are normal. Abdomen is soft and nontender. Bowel sounds are positive. There is no hepatomegaly. No costovertebral angle (CVA) tenderness. Extremities show no pretibial edema, no calf tenderness, no differential swelling of the upper extremities. Skin is warm, dry, and perfused without cyanosis or mottling, including that of the nailbeds and knees. Neck is supple. There is no jugular venous distention. No subcutaneous emphysema. Trachea is midline. Mouth shows the mucous membranes to be pink and moist. Lips and commissures without lesions. No thrush. Eyes show her pupils to be equal and reactive. Extraocular motion intact. Sclerae anicteric. Neurologic shows II-XII intact. Normal gross motor, gross sensation intact. Gait is not tested. Psychiatric shows her to be awake, alert, and oriented times three with appropriate mood and affect and conversational. Her white count today is 6.2 and has remained in that range for the last few days. Hemoglobin and hematocrit are also stable over the last few days at 10.3 and 32.7 with a platelet count that is also stable at 421. Differential shows 64% neutrophils, 20% lymphocytes, 9% monocytes. There are no immature forms or toxic granulations. Her chemistries show normal electrolytes, again stable over the last few days, with a BUN and creatinine of 35 and 1.69 secondary to her diuresis, which has also been consistent since September 26. This is in the face of diuresis. Calcium is 8.3 with a mg of 2.4 and a glucose of 162. Pleural fluid removed on 09/30/2020 shows an LDH of 127 with a serum LDH of 178 with a white count of 404, 90% of which were mononuclear lymphocytes. Pathology did not show any malignant cells but rather mixed inflammatory cells. Microbiology shows no growth aerobically or anaerobically. This therefore looks like a mildly exudative pleural effusion bordering on the transudative. Her chest x-ray today is improved over her prethoracenteses x-rays. She has some blunting of the right costophrenic angle, which is confirmed on the lateral chest x-ray. It is quite minimal. There is also some very minimal blunting of the left costophrenic angle. There are no infiltrates either on the anterior or posterior film or the lateral film. IMPRESSION: 1. Diffuse metastatic breast carcinoma to ribs and spinal vertebral bodies. 2. Bilateral pleural effusions, nonmalignant, mildly exudative, most likely more transudative, however. 3. Stage IV breast cancer. 4. Hypothyroidism. 5. Diabetes. 6. Hypertension. 7. Renal insufficiency secondary to diuresis. PLAN AND DISCUSSION: I would continue her diuresis throughout. She ought to be referred to radiation therapy for palliation secondary to her back pain and her diffuse metastatic vertebral disease. I will therefore withdraw from the case at this time, to be follows up on an as-needed basis. I again reiterate that I am not very keen on placing PleurX catheters, as these effusions can be handled with diuretics with minimal kidney dysfunction.
[2020-10-02] MEDS: HEPARIN SOD (PORCINE) 5000UNITS/ML 1ML VIAL/SYRINGE SQ SCH ×2 (13:55→20:40)
[2020-10-02] MEDS: ONDANSETRON 4 MG TAB PO PRN (13:55)
[2020-10-02] MEDS: ACETAMINOPHEN TAB 650MG DOSE (2X325MG) PO PRN ×2 (16:47→20:39)
[2020-10-02 20:00] VITALS: BP 159/73
[2020-10-03 04:00] VITALS: BP 167/73
[2020-10-03] MEDS: PERCOCET 5MG/325MG TAB PO PRN (05:19)
[2020-10-03] MEDS: LEVOTHYROXINE 75MCG TABLET (0.075MG) PO SCH (05:19)
[2020-10-03] MEDS: HEPARIN SOD (PORCINE) 5000UNITS/ML 1ML VIAL/SYRINGE SQ SCH (05:20)
[2020-10-03] MEDS: SLF 3 ML SYR IV SCH (05:22)
[2020-10-03 05:47] LABS: BASO % 0.5 % (0.0-1.0); EOS # 0.4 10^3/uL (0.0-0.5); EOS % 5.4 % (0.0-3.0); HEMATOCRIT 33.8 % (36.0-47.0); HEMOGLOBIN 10.6 g/dl (12.0-15.5); LYMPH # 1.8 10^3/uL (1.5-5.0); LYMPH % 27.3 % (24.0-44.0); MEAN CORPUSCULAR HGB CONC 31.4 g/dl (32.0-36.5); MEAN CORPUSCULAR VOLUME 92.3 fl (80.0-96.0); MONO # 0.6 10^3/uL (0.0-0.8); MONO % 8.6 % (2.0-8.0); NEUTROPHILS # 3.8 10^3/uL (1.5-8.5); NEUTROPHILS % 57.9 % (36.0-66.0); PLATELET COUNT, AUTOMATED 435 10^3/uL (150-450); RED BLOOD COUNT 3.66 10^6/uL (4.00-5.40); WHITE BLOOD COUNT 6.6 10^3/uL (4.0-10.0)
[2020-10-03 06:08] LABS: CREATININE FOR GFR 1.76 MG/DL (0.55-1.30); GLOMERULAR FILTRATION RATE 30.3 (>39); MAGNESIUM LEVEL 2.5 MG/DL (1.8-2.4); POTASSIUM SERUM 5.1 MEQ/L (3.5-5.1)
[2020-10-03 07:26] VITALS: BP 173/76
[2020-10-03] MEDS: ASCORBIC ACID 500 MG TAB PO SCH (08:25)
[2020-10-03] MEDS: HumaLOG INSULIN (NovoLOG) PER UNIT SC SCH ×2 (08:25→12:41)
[2020-10-03] MEDS: PANTOPRAZOLE 40MG TAB (PROTONIX) PO SCH (08:25)
[2020-10-03] MEDS: FUROSEMIDE 20 MG TAB PO SCH (08:25)
[2020-10-03] MEDS: DOCUSATE SODIUM 100MG CAPSULE PO SCH (08:25)
[2020-10-03] MEDS: THIAMINE 100 MG TAB PO SCH (08:25)
[2020-10-03] MEDS: CYANOCOBALAMIN 500 MCG TAB PO SCH (08:26)
[2020-10-03] MEDS: guaiFENesin ER 600 MG TAB PO SCH (08:26)
[2020-10-03] MEDS: FERROUS SULFATE 325MG TAB PO SCH (08:26)
[2020-10-03] MEDS: ESCITALOPRAM OXALATE 5MG TABLET (LEXAPRO) PO SCH (08:26)
[2020-10-03] MEDS: CALCIUM/VITAMIN D 500 MG TAB PO SCH (08:26)
[2020-10-03] MEDS: LETROZOLE 2.5 MG TAB PO SCH (08:27)
[2020-10-03] MEDS: MOM 30ML SUSPENSION UDC PO PRN ×2 (10:51→12:41)
[2020-10-03] MEDS ORDERED: FURO20TA2 PO (11:20)
[2020-10-03] MEDS ORDERED: PERCOCET PO (12:15)
--- NOTE | 2020-10-03 12:36 | DS.PDOC ---
Discharge Summary General Date of Admission Sep 23, 2020 at 16:43 Date of Discharge 10/03/2020 Primary Care Physician: MARNI BETANCOURT DO Attending Physician: EDSON MARTINEZ MD Specialist/Consultants Involve: Alirio Taylor M.D. Discharge Summary PROCEDURES PERFORMED DURING STAY: Bilateral thoracentesis with pleural effusion, extraction. ADMITTING DIAGNOSES: 1. Dehydration. 2. Fall 3. Dyspnea 4. CKD, stage III 5. HTN 6. Hypothyroidism. 7. Iron deficiency anemia. 8. Stage IV breast cancer with bony metastases. 9. Type 2 diabetes mellitus. 10. Depression. DISCHARGE DIAGNOSES: 1. Rib fractures, right-sided. 2. Stage IV breast cancer with bony metastases. 3. CKD, stage III. 4. Hypertension. 5. Hypothyroidism. 6. Type 2 diabetes mellitus. 7. Iron deficiency anemia. 8. Depression COMPLICATIONS/CHIEF COMPLAINT: Falls,Pleural Effusion. HISTORY OF PRESENT ILLNESS: Patient is a 70-year-old female with a significant medical history of breast cancer with bony metastases to the ribs with a history of rib fractures, diabetic neuropathy, hypertension and [id number] diabetes. Patient states that she fell at approximately 10:30 in the morning after she woke up from bed. She states that she fell onto her right side and right shoulder. She reports that she was unable to stand up and waited for approximately 30 minutes before her home health nurse arrived and helped her off the floor. She also reports that she had 3 episodes of bilious vomiting after the fall. She denies any blood in her vomitus. She states that she has had nothing by mouth today. The patient denies any head injuries or hitting her head during her falling episode. The patient also denies any loss of consciousness, although her fall was unwitnessed. In the emergency department, the patient had multiple scans done including chest CT, head CT, cervical spine CT, shoulder x-ray, and chest x-ray, which all did not report any acute fractures. The patient's chest CT didn't show evidence of bilateral pleural effusions with possible atelectasis and infiltrate could not be ruled out. However, the patient denies any recent fevers, chills, night sweats, upper respiratory symptoms, nausea, diarrhea, or constipation. The patient had been lower over some time, he was ordered, however, it was within normal range. The patient received meropenem 1 g while in the ED due to CT finding of possible infiltrate. Patient's vital signs in the ED showed systolic hypertension with systolic blood pressures in the 200s. Patient received to her amlodipine. Home dose of 10 mg. Patient also received a morphine sulfate injection of 4 mg once, after which the hospitalist team evaluated the patient. The patient still reported severe pain after morphine administration. HOSPITAL COURSE: Throughout patient's hospital course, patient did not have any arrhythmias and orthostatic vitals were negative. Therefore syncope was ruled out for fall. Patient has a known diabetic neuropathy from her type 2 diabetes. Therefore, her fall was likely secondary to the neuropathy. Patient's CPK levels were negative. Therefore, rhabdomyolysis remains low on the patient's differe ntial diagnosis. Troponin was negative. Patient remains nausea and had episodes of vomiting that were easily controlled on IV Zofran 2 mg every 8 hours when necessary. The dose was 2 mg because the patient had borderline prolonged QTC, and she was on SSRI. Abdominal imaging did not show any acute obstructive process. During the patient's stay. The vomiting was likely secondary to aromatase inhibitor medication that was started in the hospital. Patient intermittently required oxygen therapy briefly and therefore had bilateral thoracentesis (right on 09/30/2020 and left on 10/01/2020) completed. Right- sided pleural effusion was red and showed reactive mesothelial cells, however, no malignant cells were found. 1600 mL were taken off the right pleura and 830 milliliters (yellow fluid) were taken off the left pleura. Patient was restarted on Lasix and her creatinine improved with administration. Patient's Lasix administration was intermittent at first but then she was given 60 mg daily with holding parameters of systolic blood pressures less than 110. Patient's home medications: Guaifenesin 600 mg daily, amlodipine, levothyroxine, escitalopram 5 mg, ferrous sulfate 325 mg daily, Letrozole 2.5 mg tab, calcium/vitamin D, Vitamin C 500 mg, and Vitamin B12 500 g. Patient's intake and outputs, daily weights were monitored. She was not given carvedilol due to being bradycardic earlier in the hospital stay. Patient will follow up with ink maker in the outpatient setting after discharge. Patient required 2 tablets of Percocet every 6 hours as needed for pain due to rib fractures and bony metastases. Patient's glucose levels remained controlled with sliding scale insulin. DISCHARGE MEDICATIONS: Please see below. ALLERGIES: Please see below. PHYSICAL EXAMINATION ON DISCHARGE: VITAL SIGNS: Please see below. GENERAL: No acute distress, alert and cooperative on exam HEENT: Normocephalic, atraumatic, lids and conjunctivae normal, nares patent, oropharyngeal mucosa moist CARDIOVASCULAR: Regular rate and rhythm, no rubs or gallops. Systolic ejection murmur auscultated /. RESPIRATORY: Clear to auscultation bilaterally. ABDOMINAL: Soft, nontender, nondistended EXTREMITIES: No edema, cyanosis of extremities, pedal pulses +2 bilaterally, radial pulses +2 bilaterally NEUROLOGICAL:, Good tone, range of motion intact, cranial nerves III-12 intact. PSYCHOLOGICAL:. Alert and oriented 4 LABORATORY DATA: Please see below. IMAGING: Chest x-ray 09/23/2020 1. Abnormal bilateral lower lung field findings as described above consistent with pneumonia and pleural effusions. 2. Evidence of skeletal metastatic disease. Shoulder x-ray 09/23/2020 The acromioclavicular and glenohumeral relationships are within normal limits. There is no acute fracture, dislocation, or subluxation. The patient has known right rib fractures from previous rib series of 09/16/2020 and also seen on prior chest CT. There are multiple lytic lesions seen throughout the shoulder girdle and multiple ribs. Cervical spine x-ray 09/23/2020 Diffuse lytic and sclerotic metastases. No acute fracture. Head CT 09/23/2020 No acute intracranial hemorrhage or calvarial fracture. Chest CT 09/23/2020 1. Bilateral pleural effusion. 2. Skeletal metastasis. 3. Bilateral dependent lower lung field densities likely subsegmental atelectatic changes. Small developing areas of pneumonia cannot be ruled out. Abdomen x-ray 09/24/2020 No evidence of obstruction. Moderate fecal material throughout the colon. Ribs x-ray. 09/26/2020 Multiple innumerable lytic lesions throughout all ribs bilaterally. Nondisplaced acute appearing fracture lateral right 6th rib and posterior right 10th rib. Healing fracture posterior right 7th rib. Nondisplaced fracture posterior right 11th rib. No pneumothorax. Bilateral pleural effusions. Chest x-ray. 09/28/2020 Bilateral pleural effusions and widespread skeletal metastatic disease. There is a fracture of the right 7th lateral rib Chest biopsy. 09/30/2020 No pneumothorax status post right thoracentesis. Thoracentesis ultrasound. 09/30/2020 Ultrasound-guided thoracentesis with removal of 1600 mL from the right lung zone. Chest x-ray. 10/01/2020 Moderate bilateral pleural effusions and bibasilar atelectasis/opacities (left greater than right) relatively similar to prior examination. Chest biopsy. 10/01/2020 No pneumothorax status post left thoracentesis. Decreased amount of left pleural fluid and improved aeration of the left lung base. There are small bilateral effusions and mild patchy bibasilar parenchymal opacities. Thoracentesis ultrasound. 10/01/2020 Ultrasound-guided thoracentesis with removal of 830 mL of pleural fluid. Chest x-ray. 10/02/2020 Small bilateral pleural effusions and passive atelectasis significantly improved from prior examination. PROGNOSIS: Fair ACTIVITY: As tolerated. DIET: 2 g sodium and consistent carbohydrate diet DISCHARGE PLAN: Discharge to [facility]. DISCHARGE INSTRUCTIONS: Please follow-up with PCP within the next 3-5 days. Please follow up with nephrology within the next 3-5 days. Please follow-up with oncology within the next week and consider radiation therapy for palliative care (patient declined multiple times during hospital stay). Continue home medications. Please continue furosemide 60 mg daily as prescribed and sent to pharmacy. Percocet 1 tablet every 6 hours for pain has been prescribed for the next 5 days, for rib pain and bony metastases from stage IV breast cancer. DISCHARGE CONDITION: Stable. TIME SPENT ON DISCHARGE: 36 minutes. Vital Signs/I&Os Vital Signs Date Time Temp Pulse Resp B/P (MAP) Pulse Ox O2 Delivery O2 Flow Rate FiO2 10/03/20 07:26 98.6 67 18 173/76 (108) 96 Room Air 10/01/20 12:00 I&O- Last 24 Hours up to 6 AM 10/03/20 06:00 Intake Total 120 ml Output Total 200 ml Balance -80 ml Laboratory Data Labs 24H Laboratory Tests 2 10/02/20 16:33: Bedside Glucose (Misc Panel) 201H 10/02/20 20:32: Bedside Glucose (Misc Panel) 88 10/03/20 05:16: Immature Granulocyte % (Auto) 0.3, Neutrophils (%) (Auto) 57.9, Lymphocytes (%) (Auto) 27.3, Monocytes (%) (Auto) 8.6H, Eosinophils (%) (Auto) 5.4H, Basophils (%) (Auto) 0.5, Neutrophils # (Auto) 3.8, Lymphocytes # (Auto) 1.8, Monocytes # (Auto) 0.6, Eosinophils # (Auto) 0.4, Basophils # (Auto) 0.0, Nucleated Red Blood Cells % (auto) 0.0, Anion Gap 2L, Glomerular Filtration Rate 30.3L, Calcium Level 8.0L, Magnesium Level 2.5H 10/03/20 10:50: Coronavirus (COVID-19)(PCR) NEGATIVE CBC/BMP Laboratory Tests 10/03/20 05:16 FSBS Laboratory Tests Test 10/02/20 16:33 10/02/20 20:32 Range/Units Bedside Glucose (Misc Panel) 201 88 83-110 MG/DL Microbiology Microbiology 09/30/20 Acid Fast Stain, Received Pending 09/30/20 Mycobacterial Culture, Received Pending 09/30/20 Fungal Smear, Received Pending 09/30/20 Fungal Culture, Received Pending 09/30/20 Gram Stain - Final, Complete 09/30/20 Body Fluid Culture - Final, Complete 09/30/20 Anaerobic Culture - Final, Complete 09/23/20 Blood Culture - Final, Complete NO GROWTH AFTER 5 DAYS 09/23/20 Blood Culture - Final, Complete NO GROWTH AFTER 5 DAYS 09/23/20 Respiratory Virus Panel (PCR) ([facility]) - Final, Complete Discharge Medications Scheduled Amlodipine Besylate (Amlodipine Besylate) 10 Mg Tablet, 10 MG PO DAILY, (Reported) Ascorbic Acid (Vitamin C) 500 Mg Tablet, 500 MG PO DAILY, (Reported) Calcium Carbonate/Vitamin D3 (Calcium 600-Vit D3 400 Tablet) 1 Each Tablet, 1 TAB PO DAILY, (Reported) Cyanocobalamin (Vitamin B-12) (Vitamin B-12) 500 Mcg Tablet, 500 MCG PO DAILY, (Reported) Docusate Sodium (Docusate Sodium) 100 Mg Capsule, 100 MG PO DAILY, (Reported) Escitalopram Oxalate (Lexapro) 5 Mg Tablet, 5 MG PO DAILY, (Reported) Ferrous Sulfate (Ferrous Sulfate) 325 Mg Tablet, 325 MG PO DAILY, (Reported) Furosemide (Furosemide) 20 Mg Tablet, 60 MG PO DAILY Glipizide (Glipizide) 5 Mg Tablet, 2.5 MG PO DAILY, (Reported) Guaifenesin (Mucinex) 600 Mg Tab.er.12h, 600 MG PO DAILY, (Reported) Letrozole (Letrozole) 2.5 Mg Tablet, 2.5 MG PO DAILY Levothyroxine Sodium (Levothyroxine Sodium) 75 Mcg Tablet, 75 MCG PO QAM, (Reported) Thiamine HCl (Thiamine HCl) 100 Mg Tablet, 100 MG PO DAILY, (Reported) Scheduled PRN Acetaminophen (Acetaminophen) 325 Mg Tablet, 650 MG PO Q6H PRN for PAIN / FEVER, (Reported) Ondansetron (Ondansetron Odt) 4 Mg Tab.rapdis, 4 MG PO BID PRN for NAUSEA OR VOMITING, (Reported) Oxycodone/Acetaminophen (Oxycodone-Acetaminophen 5-325) 1 Each Tablet, 1 TAB PO Q6HP PRN for SEVERE PAIN (PS 8-10) Polyethylene Glycol 3350 (Miralax) 119 Gm Powder, 17 GM PO DAILY PRN for CONSTIPATION, (Reported) dilute in 8 ounces of water or juice Sennosides (Senna Lax) 8.6 Mg Tablet, 2 TAB PO DAILY PRN for CONSTIPATION, (Reported) Simethicone (Gas-X) 125 Mg Capsule, 125 MG PO Q6H PRN for GAS PAIN, (Reported) Allergies Coded Allergies: Penicillins (Verified Allergy, Mild, rash, 07/07/20) GME ATTESTATION GME ATTESTATION My faculty preceptor for this patient encounter was physically present during the encounter and was fully available. All aspects of the patient interview, examination, medical decision making process, and medical care plan development were reviewed and approved by the faculty preceptor. The faculty preceptor is a morales and concurs with the plan as stated in the body of this note and will attest to such by his/her cosignature. ATTENDING NOTE I, Edson Martinez, have independently examined this patient and performed my own physical exam, as well as reviewed the documentation and edited where necessary. I have discussed in detail with the resident / student the findings and plan of treatment as documented by the resident / student and edited their note. I agree with their findings and treatment plan and have edited their documentation. I will continue to follow the patient during this hospital stay. Time spent on discharge 37 minutes Reji Montemayor DO Oct 03, 2020 12:36 EDSON MARTINEZ MD Oct 03, 2020 13:35
--- NOTE | 2020-10-03 13:03 | REP ---
INDICATION: Constipated pt. COMPARISON: 09/24/2020 FINDINGS: Once again, there is a moderate to large amount of stool seen in the right colon an rectosigmoid region. The organ silhouettes are obscured by the content. There is no evidence of gross free intraperitoneal air. There is no change in the osseous structures. IMPRESSION: No significant change from the prior exam. Correlate clinically for constipation. There is no obvious bowel obstruction. <Electronically signed by Kunal Solorzano > 10/03/20 [id number]
[2020-10-03] MEDS: ACETAMINOPHEN TAB 650MG DOSE (2X325MG) PO PRN (13:35)
== END 2020-10-03 14:05 | DRG 187 ==
LOC: M ED 12:08 → EDBD 12:08 → M ED INP 16:41 → OBSVTOIN 16:43 → ENRESERV 17:09 → M PCU 20:24
PROVIDERS: ADMIT Internal Medicine; ATTEND Internal Medicine
PROC: 0W993ZZ Drainage of Right Pleural Cavity, Percutaneous Approach (ICD-10-PCS; principal; 2020-09-30 13:00)
PROC: 0W9B3ZZ Drainage of Left Pleural Cavity, Percutaneous Approach (ICD-10-PCS; 2020-10-01)
DX: J90 Pleural effusion, not elsewhere classified (principal); C79.51 Secondary malignant neoplasm of bone; I13.0 Hypertensive heart and chronic kidney disease with heart failure and stage 1 through stage 4 chronic kidney disease, or unspecified chronic kidney disease; I50.32 Chronic diastolic (congestive) heart failure; M84.58XA Pathological fracture in neoplastic disease, other specified site, initial encounter for fracture; E11.42 Type 2 diabetes mellitus with diabetic polyneuropathy; D50.9 Iron deficiency anemia, unspecified; E03.9 Hypothyroidism, unspecified; N18.30 Chronic kidney disease, stage 3 unspecified; Z66 Do not resuscitate; R11.2 Nausea with vomiting, unspecified; E11.22 Type 2 diabetes mellitus with diabetic chronic kidney disease; I27.20 Pulmonary hypertension, unspecified; R55 Syncope and collapse; R26.89 Other abnormalities of gait and mobility; C50.911 Malignant neoplasm of unspecified site of right female breast; F32.9 Major depressive disorder, single episode, unspecified; Z90.49 Acquired absence of other specified parts of digestive tract; Z79.84 Long term (current) use of oral hypoglycemic drugs; Z79.899 Other long term (current) drug therapy; Z88.0 Allergy status to penicillin; Z20.822 Contact with and (suspected) exposure to COVID-19